=== PATIENT | female | born 1940 | race Caucasian/White ===

== ENCOUNTER 2018-05-21 13:17 | Inpatient (IN) | payer OTHER ==
[2018-05-21] MEDS ORDERED: NA CHLORIDE 0.9% 500 ML ONE (13:41)
--- NOTE | 2018-05-21 14:02 | RAD REPORT ---
EXAM DESCRIPTION: CT - Head Brain Wo Cont - 05/21/2018 1:48 pm CLINICAL HISTORY: Headache, syncope COMPARISON: March 2009 TECHNIQUE: Axial 5 mm thick images of the head were obtained without IV contrast. All CT scans are performed using dose optimization technique as appropriate and may include automated exposure control or mA/KV adjustment according to patient size. FINDINGS: No intracranial hemorrhage, mass, edema or shift of mid-line structures. No acute infarcti on changes seen. No significant atrophy or chronic ischemic change. Intracranial findings are not sub stantially different from far remote 2008 study. Ventricles are normal. Mastoid air cells and visualized portions of the paranasal sinuses are clear. No acute bony findings. IMPRESSION: Negative non-contrast CT head examination for acute findings. No significant change fro 2008.
--- NOTE | 2018-05-21 14:15 | RAD REPORT ---
EXAM DESCRIPTION: RAD - Chest Single View - 05/21/2018 1:45 pm CLINICAL HISTORY: Cough, fever, chills COMPARISON: April 2013 TECHNIQUE: AP portable chest image was obtained 1332 hours . FINDINGS: Lungs are clear. Heart and vasculature are normal. No measurable pleural effusion and no p neumothorax. No acute bony abnormality seen. No acute aortic findings suspected. IMPRESSION: No acute cardiopulmonary process. No significant interval change.
[2018-05-21 14:33] LABS: Absolute Lymphocytes (CBC) 0.9 K/uL (0.7-4.9); Absolute Neutrophil 12.9 K/uL (1.8-8.0); Basophils % 0.3 % (0-1.3); Eosinophils % 0.1 % (0-4.4); Hematocrit 41.9 % (36.0-45.0); Lymphocytes % 5.7 % (15.3-44.8); MCH 28.5 pg (27.0-35.0); MCV 85.9 fL (80-100); RBC Red Blood Cell Count 4.88 M/uL (3.86-4.86)
[2018-05-21 14:44] LABS: ALT/SGPT 18 U/L (12-78); AST/SGOT 16 U/L (15-37); Albumin 3.4 g/dL (3.4-5.0); Alkaline Phosphatase 106 U/L (45-117); BUN Blood Urea Nitrogen 13 mg/dL (7-18); Bicarbonate 22 mmol/L (21-32); Bilirubin Direct 0.1 mg/dL (0-0.2); Bilirubin Total 0.6 mg/dL (0.2-1.0); Glucose Level 158 mg/dL (74-106); Lipase 118 U/L (73-393); Potassium 3.8 mmol/L (3.5-5.1); Sodium Level 139 mmol/L (136-145); Troponin (Emerg Dept Use Only) < 0.02 ng/mL (0.0-0.045)
[2018-05-21] MEDS ORDERED: CEFTRIAXONE/SWI 1gm 1 GM/10 ML SYR ONE (16:32)
[2018-05-21 16:34] LABS: Urine Blood 1+ (NEG); Urine Glucose NEGATIVE (NEG); Urine Protein 1+ (NEG); Urine Specific Gravity 1.015 (1.005-1.030)
[2018-05-21 16:42] LABS: Urine Bacteria >50 /HPF (<20); Urine Culture Reflex Order REFLEXED; Urine RBC NONE SEEN /HPF (NONE SEEN)
--- NOTE | 2018-05-21 16:49 | EDPHYS ---
Physician Documentation [facility] Name: Connie Buckley Age: 77 yrs Sex: Female : 1940 Arrival Date: 05/21/2018 Time: 13:22 Bed 5 Private MD: ED Physician Chidi Hoffmann HPI: 05/21 13:23 This 77 yrs old Female presents to ER via Unassigned with complaints of rn weakness, chills. 13:23 REports woke up today with generalized weakness, fatigue, chills, unable to get out of rn bed, called 911 because couldn't get to vehicle. Reports heaviness to upper abdomen, but no dark stool, no chest pain, no vomiting/diarrhea. . Onset: The symptoms/episode began/occurred today. Severity of symptoms: At their worst the symptoms were moderate in the emergency department the symptoms have improved. The patient has not experienced similar symptoms in the past. The patient has not recently seen a physician. Historical: - Allergies: 13:27 amlodipine besylate; jl7 13:27 Clonidine; jl7 13:27 Codeine; jl7 13:27 doxazosin; jl7 13:27 ezetimibe; jl7 13:27 Indomethacin; jl7 - Home Meds: 19:48 atorvastatin 80 mg Oral tab 1 tab once daily [Active]; Ecotrin 325 mg Oral TbEC 1 tab tl2 once daily [Active]; furosemide 20 mg Oral tab 1 tab once daily [Active]; levothyroxine 100 mcg tab 1 tab once daily [Active]; magnesium oxide 400 mg Oral tab [Active]; metoprolol tartrate 100 mg Oral tab 1 tab once daily [Active]; Nitrostat 0.3 mg SL subl as needed [Active]; Prevacid 15 mg Oral cpDR as needed [Active]; - PMHx: 13:27 Hyperlipidemia; Hypertension; Hypothyroidism; Diabetes - NIDDM; TIA; jl7 - Immunization history:: Adult Immunizations up to date. - Social history:: Smoking status: Patient/guardian denies using tobacco. - Family history:: not pertinent. - Ebola Screening: : No symptoms or risks identified at this time. - Hospitalizations: : No recent hospitalization is reported. ROS: 13:23 Constitutional: + chills Eyes: Negative for injury, pain, redness, and discharge, Neck: rn Negative for injury, pain, and swelling, Cardiovascular: Negative for chest pain, palpitations, and edema, Respiratory: Negative for shortness of breath, cough, wheezing, and pleuritic chest pain, Abdomen/GI: + nausea, neg for abd pain/diarrhea MS/Extremity: Negative for injury and deformity, Skin: Negative for injury, rash, and discoloration, Neuro: + generalized weakness and coughing Exam: 13:29 Constitutional: This is a well developed, well nourished patient who is awake, alert, rn and in no acute distress. Head/Face: Normocephalic, atraumatic. Eyes: Pupils equal round and reactive to light, extra-ocular motions intact. Lids and lashes normal. Conjunctiva and sclera are non-icteric and not injected. Cornea within normal limits. Periorbital areas with no swelling, redness, or edema. ENT: dry MM, no stridor Cardiovascular: irregular rhythm, no murmur, tachycardic Respiratory: equal and regular bilateral breath sounds Abdomen/GI: soft, non-tender Skin: Warm, dry, no evidence of cellulitis. MS/ Extremity: Pulses equal, no cyanosis. Neurovascular intact. Full, normal range of motion. Equal circumference. Neuro: Awake and alert, GCS 15, oriented to person, place, time, and situation. Cranial nerves II-XII grossly intact. Motor strength 5/5 in all extremities. Sensory grossly intact. Vital Signs: 13:27 BP 168 / 63; Pulse 89; Resp 16; Temp 99.5; Pulse Ox 93% ; jl7 15:56 Pulse 75; Resp 17 S; Pulse Ox 98% on R/A; sg 15:59 BP 143 / 71; sg 18:58 Pulse 76 MON; Resp 16; Temp 98.1(O); Pulse Ox 100% ; sg 19:40 BP 151 / 92; Pulse 67; Resp 18; Pulse Ox 99% on R/A; tl2 MDM: 13:22 Patient medically screened. rn 16:47 Differential Diagnosis weakness, UTI, dehydration. Data reviewed: vital signs, nurses rn notes, lab test result(s), radiologic studies, plain films, and as a result, I will admit patient. Counseling: I had a detailed discussion with the patient and/or guardian regarding: the historical points, exam findings, and any diagnostic results supporting the discharge/admit diagnosis, lab results, radiology results, the need for further work-up and treatment in the hospital. Response to treatment: the patient's symptoms have mildly improved after treatment, and as a result, I will admit patient. Admission orders: after a detailed discussion of the patient's condition and case, the admit orders are written by me. 05/21 13:28 Order name: Basic Metabolic Panel; Complete Time: 15:51 rn 05/21 13:28 Order name: CBC with Diff 05/21 13:28 Order name: Hepatic Function; Complete Time: 15:51 rn 05/21 13:28 Order name: Lipase; Complete Time: 15:51 05/21 13:28 Order name: Troponin (emerg Dept Use Only); Complete Time: 15:51 05/21 13:28 Order name: Flu; Complete Time: 15:51 05/21 13:28 Order name: Strep; Complete Time: 15:51 05/21 13:28 Order name: Blood Culture Adult (2) 05/21 13:28 Order name: Procalcitonin; Complete Time: 15:51 05/21 14:47 Order name: CBC Smear Scan [facility] 05/21 14:51 Order name: Throat Culture [facility] 05/21 16:18 Order name: Urine Dipstick--Ancillary (enter results) 05/21 16:18 Order name: Urine Culture 05/21 16:18 Order name: Urine Microscopic Only 05/21 13:28 Order name: CT Head Brain wo Cont; Complete Time: 14:18 05/21 13:28 Order name: EKG; Complete Time: 13:29 05/21 13:28 Order name: Cardiac monitoring; Complete Time: 13:29 05/21 13:28 Order name: EKG - Nurse/Tech; Complete Time: 13:28 05/21 13:28 Order name: IV Saline Lock; Complete Time: 13:30 rn 05/21 13:28 Order name: Labs collected and sent; Complete Time: 13:30 05/21 13:28 Order name: NPO; Complete Time: 13:29 rn 05/21 13:28 Order name: O2 Per Protocol; Complete Time: 13:29 rn 05/21 13:28 Order name: O2 Sat Monitoring; Complete Time: 13:30 rn 05/21 13:28 Order name: Urine Dipstick-Ancillary (obtain specimen); Complete Time: 16:39 rn 05/21 13:28 Order name: XRAY Chest (1 view); Complete Time: 14:18 rn 05/21 16:18 Order name: Urine Dipstick-Ancillary EDMS Administered Medications: 13:50 Drug: NS 0.9% 500 ml Route: IV; Rate: bolus; Site: right forearm; sg 20:05 Follow up: IV Status: Completed infusion tl2 16:38 Drug: Rocephin 1 grams Route: IV; Rate: bolus; Site: right forearm; sg 20:04 Follow up: IV Status: Completed infusion tl2 16:39 Not Given (Physician Discretion): Rocephin - (cefTRIAXone) 1 grams IVPB once over 30 sg mins; (mix in 50 mL NS) 18:34 Drug: Zofran 4 mg Route: IVP; Site: right forearm; sg 20:04 Follow up: Response: No adverse reaction; Nausea is decreased tl2 Disposition: 05/21/18 16:48 Hospitalization ordered by Kellie Arteaga for Inpatient Admission. Preliminary diagnosis are Weakness, Urinary tract infection, site not specified. - Bed requested for Telemetry/MedSurg (Inpatient). - Status is Inpatient Admission. tl2 - Condition is Stable. - Problem is new. - Symptoms have improved. UTI on Admission? Yes Signatures: Dispatcher [employer] EDMS Venkat Martinez RN RN sg Rosanne Fields ms, Roman, MD MD rn Knox, Taylor RN RN tl2 Aster Freeman RN RN jl7 Corrections: (The following items were deleted from the chart) 18:40 16:48 Hospitalization Ordered by A Chandler BARRAZA for Inpatient Admission. Preliminary ms diagnosis is Weakness; Urinary tract infection, site not specified. Bed requested for Telemetry/MedSurg (Inpatient). Status is Inpatient Admission. Condition is Stable. Problem is new. Symptoms have improved. UTI on Admission? Yes. rn 20:05 18:40 05/21/2018 16:48 Hospitalization Ordered by Kellie Arteaga MD for Inpatient Admission. tl2 Preliminary diagnosis is Weakness; Urinary tract infection, site not specified. Bed requested for Telemetry/MedSurg (Inpatient). Status is Inpatient Admission. Condition is Stable. Problem is new. Symptoms have improved. UTI on Admission? Yes. ms
--- NOTE | 2018-05-21 16:49 | ER ---
Nurse's Notes [facility] Name: Connie Buckley Age: 77 yrs Sex: Female : 1940 Arrival Date: 05/21/2018 Time: 13:22 Bed 5 Private MD: Diagnosis: Weakness;Urinary tract infection, site not specified Presentation: 05/21 13:24 Presenting complaint: EMS states: C/O general weakness, chills and had some chest jl7 discomfort on the way over. Transition of care: patient was not received from another setting of care. Onset of symptoms was May 21, 2018. Risk Assessment: Do you want to hurt yourself or someone else? Patient reports no desire to harm self or others. Care prior to arrival: Medication(s) given: ASA, 81 mg, x 4. 13:24 Method Of Arrival: EMS: [facility] jl7 13:24 Acuity: MARC 3 jl7 19:45 Initial Sepsis Screen: Does the patient meet any 2 criteria? No. Patient's initial tl2 sepsis screen is negative. Does the patient have a suspected source of infection? No. Patient's initial sepsis screen is negative. Historical: - Allergies: 13:27 amlodipine besylate; jl7 13:27 Clonidine; jl7 13:27 Codeine; jl7 13:27 doxazosin; jl7 13:27 ezetimibe; jl7 13:27 Indomethacin; jl7 - Home Meds: 19:48 atorvastatin 80 mg Oral tab 1 tab once daily [Active]; Ecotrin 325 mg Oral TbEC 1 tab tl2 once daily [Active]; furosemide 20 mg Oral tab 1 tab once daily [Active]; levothyroxine 100 mcg tab 1 tab once daily [Active]; magnesium oxide 400 mg Oral tab [Active]; metoprolol tartrate 100 mg Oral tab 1 tab once daily [Active]; Nitrostat 0.3 mg SL subl as needed [Active]; Prevacid 15 mg Oral cpDR as needed [Active]; - PMHx: 13:27 Hyperlipidemia; Hypertension; Hypothyroidism; Diabetes - NIDDM; TIA; jl7 - Immunization history:: Adult Immunizations up to date. - Social history:: Smoking status: Patient/guardian denies using tobacco. - Family history:: not pertinent. - Ebola Screening: : No symptoms or risks identified at this time. - Hospitalizations: : No recent hospitalization is reported. Screenin:50 Abuse screen: Denies threats or abuse. Denies injuries from another. Nutritional sg screening: No deficits noted. Tuberculosis screening: No symptoms or risk factors identified. Never had TB. Fall Risk None identified. Assessment: 13:50 General: Appears in no apparent distress. uncomfortable, well groomed, well developed, sg well nourished, Behavior is calm, cooperative, appropriate for age. Pain: Denies pain. Neuro: Reports general weakness. Cardiovascular: Patient's skin is warm and dry. Pulses are palpable in right radial artery and left radial artery. Respiratory: Airway is patent Respiratory effort is even, unlabored, Respiratory pattern is regular, symmetrical. GI: Abdomen is round non-distended, Bowel sounds present X 4 quads. : No signs and/or symptoms were reported regarding the genitourinary system. EENT: No signs and/or symptoms were reported regarding the EENT system. Derm: Skin is pink, warm \T\ dry. Musculoskeletal: No signs and/or symptoms reported regarding the musculoskeletal system. 14:30 Reassessment: Patient appears in no apparent distress at this time. Patient and/or sg family updated on plan of care and expected duration. Pain level reassessed. Patient is alert, oriented x 3, equal unlabored respirations, skin warm/dry/pink. Vital Signs: 13:27 BP 168 / 63; Pulse 89; Resp 16; Temp 99.5; Pulse Ox 93% ; jl7 15:56 Pulse 75; Resp 17 S; Pulse Ox 98% on R/A; sg 15:59 BP 143 / 71; sg 18:58 Pulse 76 MON; Resp 16; Temp 98.1(O); Pulse Ox 100% ; sg 19:40 BP 151 / 92; Pulse 67; Resp 18; Pulse Ox 99% on R/A; tl2 ED Course: 13:22 Patient arrived in ED. rn 13:22 Chidi Hoffmann MD is Attending Physician. rn 13:25 Triage completed. jl7 13:26 Venkat Martinez, SUMAN is Primary Nurse. sg 13:27 Arm band placed on right wrist. Patient placed in an exam room, on a stretcher, on jl7 lead refinery supervisor, on pulse oximetry. 13:41 EKG done, by radio frequency technician. reviewed by Chidi Hoffmann MD. vh 13:44 XRAY Chest (1 view) In Process Unspecified. EDMS 13:48 CT Head Brain wo Cont In Process Unspecified. EDMS 14:00 Patient has correct armband on for positive identification. Bed in low position. Call sg light in reach. Side rails up X2. technology intern on. Pulse ox on. NIBP on. Warm blanket given. Head of bed elevated. 14:00 Initial lab(s) drawn, by me, sent to lab. Flu and/or RSV swab sent to lab. Strep swab sg sent to lab. Inserted saline lock: 20 gauge in right forearm, using aseptic technique. Blood collected. 14:00 Throat Culture Sent. sg 14:40 First set of blood cultures drawn by me. sg 16:48 Kellie Arteaga MD is Hospitalizing Provider. rn 20:03 No provider procedures requiring assistance completed. Patient admitted, IV remains in tl2 place. Administered Medications: 13:50 Drug: NS 0.9% 500 ml Route: IV; Rate: bolus; Site: right forearm; sg 20:05 Follow up: IV Status: Completed infusion tl2 16:38 Drug: Rocephin 1 grams Route: IV; Rate: bolus; Site: right forearm; sg 20:04 Follow up: IV Status: Completed infusion tl2 16:39 Not Given (Physician Discretion): Rocephin - (cefTRIAXone) 1 grams IVPB once over 30 sg mins; (mix in 50 mL NS) 18:34 Drug: Zofran 4 mg Route: IVP; Site: right forearm; sg 20:04 Follow up: Response: No adverse reaction; Nausea is decreased tl2 Outcome: 16:48 Decision to Hospitalize by Provider. rn 20:03 Admitted to Tele accompanied by tech, family with patient, via wheelchair, room 412, tl2 with chart, Report called to SUMAN James 20:04 Condition: stable tl2 20:04 Discharge instructions given to patient, family, Instructed on the need for admit. 20:05 Patient left the ED. tl2 Signatures: Dispatcher [employer] EDVenkat Feng, RN Chidi Gamboa MD MD rn Harrell, Venessa Naty Perry RN RN tl2 Aster Freeman RN RN jl7 Corrections: (The following items were deleted from the chart) 15:59 15:58 Throat Culture drawn and sent. sg sg
[2018-05-21 18:04] LABS: Blood Morphology Comment NOT SEEN (NOT SEEN); Platelet Estimate ADEQ; Urine White Blood Cell Casts OK
[2018-05-21] MEDS ORDERED: ONDANSETRON 4 MG/2 ML VIAL ONE (18:35)
[2018-05-21] MEDS ORDERED: ONDANSETRON 4 MG/2 ML VIAL IV PRN (20:33)
[2018-05-21] MEDS ORDERED: ACETAMINOPHEN 500 MG TAB PO PRN (20:33)
[2018-05-21] MEDS ORDERED: METOPROLOL TAR 50 MG TAB PO ONE (21:14)
[2018-05-21] MEDS ORDERED: ENOXAPARIN 40 MG/0.4 ML SQ ONE (21:15)
--- NOTE | 2018-05-21 22:08 | EKG ---
Test Date: 2018-05-21 Test Time: 13:25:57 Firewall Administrator: VH/D MEASUREMENT RESULTS: Intervals: Rate: 101 WI: QRSD: 80 QT: 376 QTc: 487 [place]: P: WI: QRS: -15 T: 109 INTERPRETIVE STATEMENTS: Sinus rhythm with frequent premature atrial complexes Nonspecific ST and T wave abnormality Abnormal ECG Compared to ECG 06/28/2016 11:14:09 ST (T wave) deviation now present Electronically Signed On 05-21-18 22:08:04 CDT by Mikel Morgan
[2018-05-21 23:18] VITALS: BMI 31.4
[2018-05-21] MEDS: NA CHLORIDE 0.9% 1,000 ML IV SCH (23:22)
--- NOTE | 2018-05-22 04:11 | HP ---
Date of Admission: 05/21/2018 Chief Complaint: Fever, chills, weakness, and confusion. History Of Present Illness: A 77-year-old female patient who was in her normal usual state of health until all of a sudden this morning, she had really bad episode of fever and chills, and the patient says that her episode of chills lasted for almost 45 minutes or so. She was not able to get up becau se she felt extremely weak, and her was not able to help her to get up to come to emergency r oom. So, ambulance was called. The patient says she was also low bit confused. She had some pain i n her bladder area, she said, and little bit burning sensation on urination early this morning. Erick es any blood in urine. She had little nausea, but no vomiting. No shortness of breath. No diarrhea . After she came in to emergency room, she was evaluated and diagnosed as having urinary tract infec tion with possibility of sepsis; and after she was treated in the emergency room, I was contacted, re questing admission to the hospital. I saw her in the emergency room. She was lying in bed. When I saw her, she was complaining of having some chills. Review of Systems: Constitutional: As mentioned above. Genitourinary: As mentioned above. STUDY DIRECTOR: As mentioned above. All other systems reviewed and negative. Medications: Aspirin 81 mg p.o. daily, furosemide 20 mg p.o. daily as needed for leg swelling, hydra lazine 10 mg 2 times a day, isosorbide mononitrate 30 mg 1 tablet p.o. daily, levothyroxine 88 mcg p. o. daily, magnesium oxide 400 mg p.o. daily, metoprolol tartrate 100 mg to take half a tablet p.o. 2 times a day, Nitrostat p.r.n., omeprazole 40 mg p.o. daily, and rosuvastatin 10 mg p.o. daily. Past Medical History: Significant for; 1.Gastroesophageal reflux disease. 2.Hypothyroidism. 3.Type 2 diabetes mellitus. 4.Hyperlipidemia. 5.Hypertension. 6.Coronary artery disease. 7.Hypomagnesemia. 8.Melanoma. 9.Lichen planus. 10.Gout. 11.History of pyelonephritis leading to acute renal failure in 2011, treated with medical management . 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 In the past, she also had laminectomy and hysterectomy. Allergies: THE PATIENT HAD SIDE EFFECT WITH AMLODIPINE CAUSING LEG SWELLING; CLONIDINE CAUSING CHEST TIGHTNESS, FATIGUE, AND NAUSEA; CODEINE CAUSING ITCHING; DOXAZOSIN CAUSING NAUSEA, ZETIA CAUSING SHANNON K PAIN, AND INDOMETHACIN CAUSING SHORTNESS OF BREATH. Family History: Significant for coronary artery disease and stroke. Social History: Negative for smoking or alcohol use. Physical Examination: Vital Signs: Blood pressure when she first came in to emergency room was 168/63, pulse 89, respirato ry rate 16, temperature 99.5, and pulse ox 93%. General: The patient is lying in bed, not in distress, appears normal, not in any respiratory distre ss. Awake, alert, oriented x3 and was having chills when I saw her today. HEENT: Head atraumatic, normocephalic. Conjunctivae nonerythematous. Sclerae white. Mouth, no thr ush or edema noted. Ears/Nose, no mass, lesion, discharge noted. Neck: Supple. No JVD, lymph nodes, bruit, thyromegaly noted. Lungs: Bilateral good equal air entry. Clear to auscultation. No rhonchi. No rales. Heart: Normal heart sounds, no murmur or gallop. Abdomen: Soft, bowel sounds normal. No guarding, rigidity, tenderness, mass, hepatosplenomegaly, dis tention, or bruit noted. Extremities: No leg edema. No calf tenderness. Skin: No rash, ulcer, cellulitis. Lymphatics: No lymph node enlargement in neck, supraclavicular, infraclavicular region. Neuro: No focal neurological deficit. Chest: Unremarkable. External Genitalia: Deferred. Rectal: Deferred. Laboratory Data: CAT scan of the head was negative for any acute intracranial changes. Chest x-ray; no acute intrathoracic changes. White count 14.8, hemoglobin 13.9, and platelets 255. Sodium 139, potassium 3.8, chloride 106, bicarb 22, BUN 13, creatinine 1.30, and glucose 158. Liver function jolynn ts unremarkable. Troponin less than 0.02. Procalcitonin 0.52. Lipase 118. Urinalysis; 3+ leukocyt e esterase, wbc's too numerous to count, and bacteria more than 50. Impression: 1.Urinary tract infection. 2.Rule out sepsis. 3.Coronary artery disease. 4.Hypertension. 5.Mixed hyperlipidemia. 6.Type 2 diabetes mellitus. 7.Hypomagnesemia. 8.Hypothyroidism. 9.Gastroesophageal reflux disease. Plan: Admit the patient to hospital for further evaluation and management of this problem. The kyleigh ent is appropriate for inpatient and is expected to spend 2 midnights in hospital. We will go ahead and give her IV fluid and IV antibiotics per order; follow up on culture results; and depending on th e culture results, we will decide about culture-specific antibiotics. Meanwhile, empiric antibiotics will be continued. DVT prophylaxis will be provided per order. Home medications will be continued per order. We will go ahead and consult Physical Therapy to help ambulate the patient. Monitor the patient's electrolytes and renal function. We will get an ultrasound done of her bladder and kidney. Details and plan of treatment were discussed with the patient. I will see her tomorrow morning for followup. RASHMI/TRISTA Voice ID: [id number]
[2018-05-22] MEDS ORDERED: CEFTRIAXONE 1 GM/NS 50 ML 1 GM/50 ML BAG IV SCH (06:00)
[2018-05-22 06:23] LABS: Potassium 3.6 mmol/L (3.5-5.1)
[2018-05-22 06:30] LABS: Absolute Lymphocytes (CBC) 1.8 K/uL (0.7-4.9); Basophils % 0.3 % (0-1.3); Eosinophils % 0.3 % (0-4.4); Hematocrit 36.3 % (36.0-45.0); Lymphocytes % 15.2 % (15.3-44.8); MCH 28.9 pg (27.0-35.0); MCV 86.1 fL (80-100); Monocytes % 8.5 % (3.3-12.3); RBC Red Blood Cell Count 4.22 M/uL (3.86-4.86)
[2018-05-22] MEDS ORDERED: CEFTRIAXONE/SWI 1gm 1 GM/10 ML SYR ONE (06:37)
[2018-05-22] MEDS: NA CHLORIDE 0.9% 1,000 ML IV SCH ×2 (06:38→16:59)
[2018-05-22] MEDS ORDERED: CEFTRIAXONE/SWI 1gm 1 GM/10 ML SYR IV SCH (09:00)
[2018-05-22] MEDS: METOPROLOL TAR 50 MG TAB PO SCH ×2 (09:57→20:21)
[2018-05-22] MEDS: ASPIRIN EC 81 MG TAB PO SCH (09:57)
--- NOTE | 2018-05-22 10:07 | RAD REPORT ---
EXAM DESCRIPTION: US - Renal Ultrasound-Complete - 05/22/2018 9:51 am CLINICAL HISTORY: Urinary tract infection COMPARISON: 2016 cat scan FINDINGS: The right kidney measures 9 cm with a normal echotexture. The left kidney measures 10 cm with a normal echotexture. A 2.7 centimeters cyst is seen. 1.[address] hypoechoic mass is seen Hydronephrosis is not seen. IMPRESSION: 2.7 centimeter left renal cyst 1.2 centimeter hypoechoic mass the left kidney probably represents benign complex cyst. Follow-up ult leslee in 1 year is recommended for re-evaluation
--- NOTE | 2018-05-22 10:51 | RAD REPORT ---
EXAM DESCRIPTION: US - Urinary Bladder - 05/22/2018 9:51 am CLINICAL HISTORY: Pelvic pain, urinary tract infection COMPARISON: None. FINDINGS: Bilateral ureteral jets were identified. No obstructive process. Partially filled urinary bladder shows no wall thickening or mass. No bladder stone or other intraluminal abnormality. IMPRESSION: Negative bladder ultrasound.
--- NOTE | 2018-05-22 11:33 | PN ---
Date of Progress Note: 05/22/2018 Subjective: The patient was seen this morning for followup. She had one more episode of chills afte r I saw her in the emergency room as she reported, but then this morning she is feeling better. She still has some pain in the bladder area, but otherwise denies any other complaints this morning. Objective: Vital signs: Reviewed. HEENT: Examination unremarkable. Lungs: Clear to auscultation. Heart: Sounds normal. Abdomen: Soft. Bowel sounds normal. No guarding, rigidity, tenderness, or distention. Extremities: No leg edema. Laboratory Data: White count 11.9, hemoglobin 12.2, platelets 211. Sodium 141, potassium 3.6, chlor maribel 109, bicarb 24, BUN 11, creatinine 1.1, glucose 115. Blood culture and urine culture pending. Impression: 1.Urinary tract infection. 2.Rule out sepsis. 3.Coronary artery disease. 4.Hypertension. 5.Mixed hyperlipidemia. 6.Hypothyroidism. 7.Type 2 diabetes mellitus. Plan: We will go ahead and continue current medications. Continue IV fluid. We will get a bladder and renal ultrasound this morning and we will continue current antibiotics. Home medications will be continued. Ambulation was encouraged. Continue DVT prophylaxis per order. I will see her tomorrow for followup. RASHMI/MODL Voice ID: [id number] Report ID: [id number]
[2018-05-22] MEDS: ENOXAPARIN 40 MG/0.4 ML SQ SCH (16:58)
[2018-05-22] MEDS: ROSUVASTATIN 10 MG TAB PO SCH (20:10)
[2018-05-22] MEDS: CEFTRIAXONE/SWI 1gm 1 GM/10 ML SYR IV SCH (20:11)
[2018-05-23] MEDS: NA CHLORIDE 0.9% 1,000 ML IV SCH ×3 (05:53→22:33)
[2018-05-23] MEDS: LEVOTHYROXINE SOD 0.088 MG TAB PO SCH (05:53)
[2018-05-23] MEDS ORDERED: ROSUVASTATIN CALCIUM 10 MG PO SCH (09:00)
[2018-05-23] MEDS: CEFTRIAXONE/SWI 1gm 1 GM/10 ML SYR IV SCH (09:00)
[2018-05-23] MEDS ORDERED: HOME MED 1 EA UNK (Omeprazole [Prilosec] 40 MG) PO SCH (09:00)
[2018-05-23] MEDS ORDERED: MAGNESIUM OXIDE 400 MG PO SCH (09:00)
[2018-05-23] MEDS: METOPROLOL TAR 50 MG TAB PO SCH ×2 (09:38→20:56)
[2018-05-23] MEDS: ASPIRIN EC 81 MG TAB PO SCH (09:38)
[2018-05-23] MEDS: PANTOPRAZOLE 40MG TABLET PO SCH (09:38)
[2018-05-23] MEDS: MAGNESIUM OXIDE 400 MG TAB PO SCH (09:38)
[2018-05-23] MEDS: ISOSORBIDE MONO SR 30 MG TAB PO SCH (09:39)
[2018-05-23] MEDS ORDERED: Meropenem 1000 MG/VIAL IV SCH (10:00)
[2018-05-23] MEDS: Meropenem 1,000 MG in NA CHLORIDE 0.9% 100 ML IV SCH ×2 (10:21→21:03)
--- NOTE | 2018-05-23 14:22 | PN ---
Date of Progress Note: 05/23/2018 Subjective: The patient was seen this morning for followup. She was lying in bed, not in any distre ss. Overall, she feels better today than yesterday. Denies any chills, fever. No abdominal pain, n ausea, vomiting. Objective: Vital signs: Reviewed. This morning, temperature 97.5, pulse 56, respiratory rate 18, b lood pressure 122/57, oxygen saturation 96%. HEENT: Unremarkable. Lungs: Clear to auscultation. Heart: Sounds normal. Abdomen: Soft. Bowel sounds normal. No guarding, rigidity, tenderness, or distention. Extremities: No leg edema. Laboratory Data: Urine culture growing E. coli and it is ESBL. Blood culture is also growing gram-n egative rods. Definite identification and sensitivity result pending. Impression: 1.Septicemia, organism gram-negative rods. 2.Urinary tract infection, organism Escherichia coli, extended-spectrum beta-lactamase. 3.Coronary artery disease. 4.Hypertension. Plan: We will go ahead and continue current medications. Continue IV fluid. Discontinue ceftriaxon e. Start the patient on meropenem. Continue current deep vein thrombosis prophylaxis, and I will se e her tomorrow for followup. Details and plan of treatment discussed with the patient, and patient is alre leonila on isolation. RASHMI/MODL Voice ID: [id number] Report ID: [id number]
[2018-05-23] MEDS: ENOXAPARIN 40 MG/0.4 ML SQ SCH (18:46)
[2018-05-23] MEDS: ROSUVASTATIN 10 MG TAB PO SCH (20:55)
[2018-05-24] MEDS: NA CHLORIDE 0.9% 1,000 ML IV SCH (02:15)
[2018-05-24] MEDS: LEVOTHYROXINE SOD 0.088 MG TAB PO SCH (06:13)
[2018-05-24 08:29] LABS: Absolute Lymphocytes (CBC) 1.6 K/uL (0.7-4.9); Absolute Monocytes 0.8 K/uL (0.1-1.3); Basophils % 0.7 % (0-1.3); Eosinophils % 2.1 % (0-4.4); Lymphocytes % 24.2 % (15.3-44.8); MCH 28.5 pg (27.0-35.0); MCV 86.8 fL (80-100); MPV 9.9 fL (7.6-11.3); Monocytes % 11.8 % (3.3-12.3); RBC Red Blood Cell Count 4.03 M/uL (3.86-4.86)
[2018-05-24 08:47] LABS: Magnesium 1.9 mg/dL (1.8-2.4); Potassium 3.6 mmol/L (3.5-5.1)
[2018-05-24] MEDS: PANTOPRAZOLE 40MG TABLET PO SCH (10:07)
[2018-05-24] MEDS: ASPIRIN EC 81 MG TAB PO SCH (10:07)
[2018-05-24] MEDS: MAGNESIUM OXIDE 400 MG TAB PO SCH (10:07)
[2018-05-24] MEDS: METOPROLOL TAR 50 MG TAB PO SCH ×2 (10:07→20:40)
[2018-05-24] MEDS: Meropenem 1,000 MG in NA CHLORIDE 0.9% 100 ML IV SCH ×2 (10:08→20:41)
[2018-05-24] MEDS: ISOSORBIDE MONO SR 30 MG TAB PO SCH (10:08)
--- NOTE | 2018-05-24 14:52 | PN ---
Date of Progress Note: 05/24/2018 Subjective: The patient was seen this morning for followup. She was sitting at bedside. Her husban d was with her. She is feeling much better today compared to last 2 to 3 days. Denies any complaint s this morning. Objective: Vital signs: Reviewed. HEENT: Unremarkable. Lungs: Clear to auscultation. Heart: Sounds normal. Abdomen: Soft bowel sounds normal. No guarding, rigidity, tenderness, or distention. Extremities: Have some trace edema of her hands and feet that she is complaining about and that was noted when I examined her. Laboratory Data: White count 6.5, hemoglobin 11.5, platelets 203, sodium 145, potassium 3.6, chlorid e 116, bicarb 22, BUN 7, creatinine 1, glucose 103, magnesium 1.9. Blood culture growing E coli and it is ESBL and urine culture also growing the same organism. Impression: 1.Sepsis, organism Escherichia coli. 2.Urinary tract infection, organism Escherichia coli. 3.Anemia, unspecified. 4.Hypertension. 5.Coronary artery disease. Plan: We will go ahead and continue current medications which is her meropenem. She is tolerating t hat very well. We will discontinue IV fluid. Blood pressure is stable. Her renal and bladder ultra sound result were discussed with her showing renal cyst and [facility]. Overall, her condition is improving. PICC line was ordered and tomorrow we will req [facility] to start helping us making arrangements for home IV antibiotics and Home Health C are services to assist the patient with these IV antibiotics. Recommendation is for patient to recei ve 2 weeks of IV antibiotics at home upon discharge. Details were discussed with her. RASHMI/MODL Voice ID: [id number] Report ID: [id number]
[2018-05-24] MEDS: ENOXAPARIN 40 MG/0.4 ML SQ SCH (16:18)
[2018-05-24] MEDS: ROSUVASTATIN 10 MG TAB PO SCH (20:40)
[2018-05-25] MEDS: LEVOTHYROXINE SOD 0.088 MG TAB PO SCH (05:15)
--- NOTE | 2018-05-25 08:06 | RAD REPORT ---
EXAM DESCRIPTION: RAD - Chest Single View - 05/25/2018 1:27 am CLINICAL HISTORY: Device placement PICC line placement COMPARISON: May 21, 2018 FINDINGS: A PICC line has been inserted with its tip in the distal superior vena cava. The lungs appear clear of acute infiltrate. The heart is normal size. IMPRESSION: PICC line with its tip in the distal superior vena cava
[2018-05-25] MEDS ORDERED: NITROGLYCERIN 0.4 MG/TAB SL PRN (08:17)
[2018-05-25] MEDS: MAGNESIUM OXIDE 400 MG TAB PO SCH (08:31)
[2018-05-25] MEDS: Meropenem 1,000 MG in NA CHLORIDE 0.9% 100 ML IV SCH ×2 (08:31→20:23)
[2018-05-25] MEDS: PANTOPRAZOLE 40MG TABLET PO SCH (08:31)
[2018-05-25] MEDS: ASPIRIN EC 81 MG TAB PO SCH (08:32)
[2018-05-25] MEDS: ISOSORBIDE MONO SR 30 MG TAB PO SCH (08:32)
[2018-05-25] MEDS: FUROSEMIDE 20 MG TABLET PO SCH (08:32)
[2018-05-25] MEDS: HYDRALAZINE HCL 25 MG TABLET PO SCH ×2 (08:40→20:23)
--- NOTE | 2018-05-25 08:48 | EKG ---
Test Date: 2018-05-25 Test Time: 09:35:27 Senior Telecommunications Consultant: MILTON MEASUREMENT RESULTS: Intervals: Rate: 81 NM: 136 QRSD: 84 QT: 388 QTc: 450 [place]: P: 26 NM: 136 QRS: 22 T: 62 INTERPRETIVE STATEMENTS: Sinus rhythm with premature supraventricular complexes Otherwise normal ECG Compared to ECG 05/21/2018 13:25:57 ST (T wave) deviation no longer present Electronically Signed On 05-25-18 08:48:27 BISQUE BRUSHER by Mikel Morgan
[2018-05-25] MEDS ORDERED: HYDRALAZINE HCL 10 MG TABLET PO SCH (09:00)
[2018-05-25 09:26] LABS: Absolute Lymphocytes (CBC) 2.1 K/uL (0.7-4.9); Absolute Monocytes 0.9 K/uL (0.1-1.3); Absolute Neutrophil 7.5 K/uL (1.8-8.0); Basophils % 0.6 % (0-1.3); Eosinophils % 0.7 % (0-4.4); Hematocrit 37.6 % (36.0-45.0); Lymphocytes % 19.5 % (15.3-44.8); MCH 28.2 pg (27.0-35.0); MCV 85.5 fL (80-100); MPV 10.1 fL (7.6-11.3); Monocytes % 8.6 % (3.3-12.3); RBC Red Blood Cell Count 4.39 M/uL (3.86-4.86)
[2018-05-25 09:51] LABS: ALT/SGPT 17 U/L (12-78); AST/SGOT 22 U/L (15-37); Alkaline Phosphatase 86 U/L (45-117); BUN Blood Urea Nitrogen 7 mg/dL (7-18); Bicarbonate 23 mmol/L (21-32); Bilirubin Total 0.3 mg/dL (0.2-1.0); CKMB Creatine Kinase MB < 1.0 ng/mL (0.3-3.6); Creatine Phosphokinase 76 U/L (26-192); Glucose Level 105 mg/dL (74-106); Magnesium 1.8 mg/dL (1.8-2.4); Potassium 3.4 mmol/L (3.5-5.1); Protein, Total 6.4 g/dL (6.4-8.2); Sodium Level 142 mmol/L (136-145); Troponin I 0.02 ng/mL (0.0-0.045)
[2018-05-25] MEDS: LOSARTAN POTASSIUM 50 MG TABLET PO SCH (10:00)
--- NOTE | 2018-05-25 13:33 | CON ---
CARDIOLOGY CONSULT Reason For Consult: Chest pain. History Of Present Illness: Mrs. Arango came to our hospital several days ago; I believe her date of admission was May 21 and this is May 25. She was found to have urinary tract sepsis, it is with E. coli with extended spectrum beta-lactam resistance. The only drug that is useful in tr eating that apparently is meropenem. She is on meropenem isolation and probably will need to go home on IV antibiotics for a month; I believe that is the plan that is being discussed with her. She has CAD. The last time we did a cardiac cath, she was found to have an ostial LAD stenosis, RCA stenosi s, and other stenoses, and Dr. Alejandro recommended bypass surgery. The patient was reluctant, so the re was an agreement to pursue medical therapy until angina got worse; since being in the hospital 4 d ays, she has reported some angina. Presently, she is not having pain. She gets pain every few month s, it is a pressure and tightness in the chest. It goes away when she uses nitroglycerin. She was n ot given nitroglycerin this time when she had it. She has underlying hypertension, coronary heart di sease. She has had 2 malignancies, a melanoma, and squamous cell carcinoma of the tongue. She has h ypothyroidism, hypertension, dyslipidemia. She reports drug intolerance to clonidine, doxazosin, gisel timibe and amlodipine and codeine. She does not use tobacco. Physical Examination: Vital Signs: 5 feet 4 inches, 183 pounds. General: Alert, oriented, pleasant, not in distress. Lungs: Clear. Heart Exam: Does not reveal any abnormalities. Extremities: 2+ edema just around the ankles. Normal distal pulses. No cyanosis or clubbing. Abdomen: Soft. Her electrocardiogram on the 21 of May of this year was sinus rhythm, frequent premature atrial complexes, otherwise normal. I do not see that an EKG has been repeated, but it should be done. Th e patient would not do well to go to her bypass surgery recommended almost 2 years ago, now with a se rious infection unless it becomes an emergency, so we will make sure we have good control of blood pr essure, similar heart rate with her aspirin, but not dual anti-platelet therapy. We can consider add ing Xarelto 2.5 b.i.d. to try and help, but adding Plavix would mean bypass surgery would have to be delayed. If we can control her angina and do a cardiac cath after the infection is cleared, a bypass surgery would be much less likely to cause serious complications or . NEENA Voice ID: [id number] Report ID: [id number]
[2018-05-25] MEDS: METOPROLOL XL 50 MG TAB PO SCH (17:35)
[2018-05-25] MEDS: ENOXAPARIN 40 MG/0.4 ML SQ SCH (17:36)
[2018-05-25] MEDS ORDERED: POTASSIUM CL SA 10 MEQ TAB PO ONE (19:58)
[2018-05-25] MEDS: ROSUVASTATIN 10 MG TAB PO SCH (20:22)
--- NOTE | 2018-05-25 21:36 | PN ---
Date of Progress Note: 05/25/2018 Subjective: The patient was seen this morning for followup. When I saw her, she was trying to walk in the room and she was unsteady on her feet, so I did assist to get back in the bed. She was compla ining of some chest pain that happened last night and this started before she had a PICC line placeme nt and describes as pain in the center of her chest, tightness type of feeling, and after a while, it went away. This morning, she did not have any chest pain. Objective: Vital Signs: Reviewed. Her temperature was 98.8, pulse 82, respiratory rate 18, blood p ressure 190/79 this morning. Oxygen saturation 94%. HEENT: Unremarkable. Lungs: Clear to auscultation. Heart: Sounds normal. Abdomen: Soft. Bowel sounds normal. No guarding, rigidity, tenderness, or distention. Extremities: No leg edema. Laboratory Data: Cardiac enzymes and EKG done today reviewed. Impression: 1.Sepsis, organism Escherichia coli, extended-spectrum beta-lactamases. 2.Urinary tract infection, organism Escherichia coli, extended-spectrum beta-lactamases. 3.Coronary artery disease. 4.Hypertension. 5.Diabetes mellitus. Plan: The patient's blood pressure is elevated. We will continue current metoprolol and we will go ahead and add losartan. In the past, the patient was given losartan, which she decided to stop takin g it on her own and we will restart it considering today's blood pressure. Cardiology consultation w as requested for her chest pain problem. We will follow up with gas attendant regarding that. We ana maría l continue current antibiotics including IV meropenem for her septicemia and Social Service to make a rrangements for 2 weeks of IV meropenem to be received upon discharge from the hospital. Possible di scharge this week depending on her clinical condition. We will decide at what point we might be able to discharge her. I will see her tomorrow for followup. RASHMI/MODL Voice ID: [id number] Report ID: [id number]
[2018-05-26] MEDS: METOPROLOL XL 50 MG TAB PO SCH ×2 (05:32→18:17)
[2018-05-26] MEDS: LEVOTHYROXINE SOD 0.088 MG TAB PO SCH (05:32)
[2018-05-26] MEDS: PANTOPRAZOLE 40MG TABLET PO SCH (08:32)
[2018-05-26] MEDS: FUROSEMIDE 20 MG TABLET PO SCH (08:33)
[2018-05-26] MEDS: MAGNESIUM OXIDE 400 MG TAB PO SCH (08:33)
[2018-05-26] MEDS: ASPIRIN EC 81 MG TAB PO SCH (08:34)
[2018-05-26] MEDS: LOSARTAN POTASSIUM 50 MG TABLET PO SCH (08:34)
[2018-05-26] MEDS: ISOSORBIDE MONO SR 30 MG TAB PO SCH (08:34)
[2018-05-26] MEDS: Meropenem 1,000 MG in NA CHLORIDE 0.9% 100 ML IV SCH ×2 (08:54→20:27)
[2018-05-26] MEDS: HYDRALAZINE HCL 25 MG TABLET PO SCH ×2 (11:47→20:26)
--- NOTE | 2018-05-26 13:58 | PN ---
Date of Progress Note: 05/26/2018 Ms. Arango is a 77 who was admitted here on 05/21/2018, has been seen by Dr. Morgan on 05/25/2018 b ecause of unstable angina. Ms. Arango is very well known to me, has had a heart catheterization 2 years ago. She was thought to be a candidate for coronary artery bypass surgery. The patient has ex pressed wishes to wait at that time. This has been 2 years right now and she has been having unstabl e angina from time to time. It seems to have worsened at this time after she had come in with a UTI that is fairly bacterial antibiotic resistant. She remains on IV antibiotics and now on isolation. Conchita. Today, she has not had any further chest pain. IV antibiotic continues. The p tejinder is for her to go home whenever it is okay with Dr. Arteaga. She is reconsidering surgery as far as her heart is concerned. We will have to do another catheterization before that happens. She had an appointment in my office in July with me and we will see how she does between now and then and cindy e a decision. Continue her present regimen otherwise. VISHNU/TRISTA Voice ID: [id number] Report ID: [id number]
[2018-05-26] MEDS: ENOXAPARIN 40 MG/0.4 ML SQ SCH (18:16)
[2018-05-26] MEDS: ROSUVASTATIN 10 MG TAB PO SCH (20:26)
[2018-05-26 23:15] VITALS: O2SAT 96
--- NOTE | 2018-05-26 23:49 | PN ---
Date of Progress Note: 05/26/2018 Subjective: The patient was seen this morning for followup. No new complaints or problems reported by patient. Lying in bed, not in distress. This morning when I saw her she was feeling much better, back to her normal self. She was happy, smiling, and feeling a lot better. Her was with he r at bedside. Objective: Vital Signs: Reviewed. HEENT: Examination unremarkable. Lungs: Clear to auscultation. Heart: Sounds normal. Abdomen: Soft. Bowel sounds normal. No guarding, rigidity, tenderness, or distention. Extremities: No leg edema. Impression: 1.Sepsis, organism Escherichia coli, extended-spectrum beta-lactamases. 2.Urinary tract infection, organism Escherichia coli, extended-spectrum beta-lactamases. 3.Coronary artery disease. 4.Hypertension. Plan: We will go ahead and continue current medications. Continue IV antibiotic. We will go ahead and have director of social services make arrangements for home IV antibiotics to be given for 3 weeks. Possible d ischarge to go home tomorrow if arrangements gets completed by Social Service. Once antibiotic thera py gets done, the patient to follow up with mine engineering superintendent for further cardiac intervention. Cardiolog y consultation is appreciated. RASHMI/MODL Voice ID: [id number] Report ID: [id number]
[2018-05-27] MEDS: METOPROLOL XL 50 MG TAB PO SCH (05:13)
[2018-05-27] MEDS: LEVOTHYROXINE SOD 0.088 MG TAB PO SCH (05:13)
[2018-05-27] MEDS: Meropenem 1,000 MG in NA CHLORIDE 0.9% 100 ML IV SCH (08:01)
[2018-05-27] MEDS: PANTOPRAZOLE 40MG TABLET PO SCH (08:02)
[2018-05-27] MEDS: MAGNESIUM OXIDE 400 MG TAB PO SCH (08:02)
[2018-05-27] MEDS: ASPIRIN EC 81 MG TAB PO SCH (08:02)
[2018-05-27] MEDS: LOSARTAN POTASSIUM 50 MG TABLET PO SCH (08:02)
[2018-05-27] MEDS: ISOSORBIDE MONO SR 30 MG TAB PO SCH (08:41)
[2018-05-27] MEDS: HYDRALAZINE HCL 25 MG TABLET PO SCH (08:41)
[2018-05-27] MEDS: FUROSEMIDE 20 MG TABLET PO SCH (08:41)
[2018-05-27 09:37] VITALS: BP 102/52; TEMP 97.6
--- NOTE | 2018-05-28 18:00 | DS ---
Date of Discharge: 05/27/2018 Hospital Course: A 77-year-old female patient admitted to the hospital with complaints of fever, chi lls, weakness and confusion. Please see dictated H and P for more information. After patient was ev aluated in the emergency room, she was admitted to the hospital with urinary tract infection with con cerns about possibility of sepsis. She was started on IV antibiotic, which was ceftriaxone. Home me dications were continued. Initially, her blood pressure was low, which later on with appropriate denise atment of infection started to come up and in fact her blood pressure went up to 170, 180 systolic ra nge. Later on, it required to add extra antihypertensive medication. Her urine culture came back po sitive for E coli and it was reported as ESBL and drug of choice for this particular infection was me ropenem, so this particular antibiotic was started and ceftriaxone was discontinued. After meropenem was started, she started to show significant improvement. Her blood culture also was positive for s jose ramon organism. The patient's renal ultrasound was done, which came back negative for any acute findin gs except it did show some renal cyst, not concerning and we will monitor on outpatient basis with a repeat ultrasound to be done in about a year or so and this finding was discussed with her as well. Her appetite slowly improved. She started to ambulate well. One day she had chest pain type of feel ing and that actually started just before PICC line placement procedure and it resolved on its own wi thout intervention. Next day Cardiology consultation was requested and Dr. Morgan saw her for consul tation and then day after Dr. Alejandro saw her also for a followup. Ethylbenzene Cracking Supervisor has recommended furt her cardiac intervention after this sepsis problem gets resolved. Her last cardiac cath was approxim ately 2 years ago. The patient may need coronary artery bypass surgery type of intervention dependin g on what ship's engineer recommends down the line on outpatient basis. Losartan 50 mg daily was starte d for her high blood pressure problem. Overall, her condition has improved. PICC line was placed. Social Service was consulted to help make arrangements for IV meropenem to be provided on outpatient basis. The patient has received about 6 days of IV antibiotics here in the hospital, out of that pro bably 2 days of ceftriaxone and 4 days of meropenem. I have requested 3 more weeks of IV meropenem t o be provided on an outpatient basis upon discharge. Social Service was able to make all the arrange ments and after arrangements completed today, the patient was discharged to go home in stable conditi on. In the past, the patient has stopped taking medication on her own without my recommendation and I did talk to her about that today and informed her that she should not do so and she agrees to take her medication as prescribed. Final Diagnoses: 1.Sepsis, organism Escherichia coli, Extended-spectrum beta-lactamases. 2.Urinary tract infection, organism Escherichia coli, Extended-spectrum beta-lactamases. 3.Coronary artery disease. 4.Hypertension. 5.Hyperlipidemia, mixed. 6.Type 2 diabetes mellitus. 7.Hypomagnesemia. 8.Hypothyroidism. 9.Gastroesophageal reflux disease. Discharge Medications And Instructions: 1.Continue prior home medications. 2.Take losartan 50 mg p.o. daily and Ranexa 500 mg twice a day, which was started by ship's engineer malik zendejas this hospitalization. 3.Follow up at my office in 2 weeks and follow up with Dr. Alejandro in 3 weeks. 4.Home health nurse to assist the patient with IV antibiotic, meropenem 1000 mg every 12 hours for 3 weeks and home health nurse to change PICC line dressing per protocol, flush PICC per protocol, sha ve PICC line after 3 weeks of IV antibiotic therapy completed and draw blood for CBC, chem-7 every th ird day while on IV antibiotic. Laboratory Data: Initial white count 14.8, hemoglobin 13.9, platelets 255. Last white count on 11/2017 was 10.7, hemoglobin 12.4, platelets 246. Initial sodium 139, potassium 3.8, chloride 106, bi carb 22, BUN 13, creatinine 1.30, glucose 158. Liver function test unremarkable. Troponin less than 0.02. Procalcitonin 0.52. Last potassium 3.4 on 05/25/2018. BUN 7, creatinine 1.20. RASHMI/MODL Voice ID: [id number] Report ID: [id number]
== END 2018-05-27 10:37 | disposition home health service (06) | DRG 872 ==
LOC: ER 13:17 → ERHOLD 17:00 → 4TH 19:42
PROVIDERS: ADMIT Internal Medicine; ATTEND Internal Medicine
PROC: 02HV33Z Insertion of Infusion Device into Superior Vena Cava, Percutaneous Approach (ICD-10-PCS; principal; 2018-05-25)
PROC: B548ZZA Ultrasonography of Superior Vena Cava, Guidance (ICD-10-PCS; 2018-05-25)
DX: A41.51 Sepsis due to Escherichia coli [E. coli] (principal); N39.0 Urinary tract infection, site not specified; I25.110 Atherosclerotic heart disease of native coronary artery with unstable angina pectoris; B96.20 Unspecified Escherichia coli [E. coli] as the cause of diseases classified elsewhere; E78.2 Mixed hyperlipidemia; E11.9 Type 2 diabetes mellitus without complications; E83.42 Hypomagnesemia; I10 Essential (primary) hypertension; E03.9 Hypothyroidism, unspecified; K21.9 Gastro-esophageal reflux disease without esophagitis; Z88.5 Allergy status to narcotic agent; Z88.8 Allergy status to other drugs, medicaments and biological substances; L43.9 Lichen planus, unspecified; M10.9 Gout, unspecified
CPT/HCPCS: 36415; 70450; 71045; 76770; 76857; 80048; 80053; 80076; 81003; 81015; 82550; 82553; 83690; 83735; 84145; 84484; 85025; 87040; 87070; 87077; 87081; 87086; 87088; 87186; 87205; 87804; 93005; 96361; 96365; 96366; 96375; 99285; J0696; J1650; J2405; J7030

== ENCOUNTER 2019-07-05 12:22 | Emergency (ER) | payer OTHER ==
[2019-07-05] MEDS ORDERED: NA CHLORIDE 0.9% 1,000 ML ONE (13:08)
--- NOTE | 2019-07-05 13:42 | RAD REPORT ---
EXAM DESCRIPTION: RAD - Chest Single View - 07/05/2019 1:37 pm CLINICAL HISTORY: CONGESTION Chest pain. COMPARISON: Chest Single View dated 05/25/2018; Chest Single View dated 05/21/2018; CHEST SINGLE VIEW dated 05/17/2013; CHEST SINGLE VIEW dated 04/19/2013 FINDINGS: Portable technique limits examination quality. The lungs are grossly clear. The heart is upper limit of normal in size. No displaced fractures. IMPRESSION: No acute intrathoracic process suspected.
[2019-07-05 13:43] LABS: Absolute Lymphocytes (CBC) 0.7 K/uL (0.7-4.9); Basophils % 0.4 % (0-1.3); Hematocrit 36.4 % (36.0-45.0); Lymphocytes % 15.3 % (15.3-44.8); MPV 8.8 fL (7.6-11.3); RBC Red Blood Cell Count 4.12 M/uL (3.86-4.86)
[2019-07-05 13:56] LABS: Albumin 2.5 g/dL (3.4-5.0); Bilirubin Direct 0.1 mg/dL (0-0.2); Bilirubin Total 0.3 mg/dL (0.2-1.0); Potassium 3.4 mmol/L (3.5-5.1); Protein, Total 6.3 g/dL (6.4-8.2)
[2019-07-05 14:33] LABS: Urine Bacteria >50 /HPF (<20); Urine Culture Reflex Order REFLEXED; Urine RBC <5 /HPF (NONE SEEN)
[2019-07-05] MEDS ORDERED: CEFTRIAXONE/SWI 1gm 1 GM/10 ML SYR ONE (14:55)
--- NOTE | 2019-07-05 15:38 | EDPHYS ---
Physician Documentation [facility] Name: Connie Buckley Age: 78 yrs Sex: Female : 1940 Arrival Date: 07/05/2019 Time: 12:25 Bed 26 Private MD: Kellie Serrano C ED Physician Lalita Knutson HPI: 07/05 15:28 This 78 yrs old Female presents to ER via Ambulatory with complaints of Fever.ma2 15:28 Onset: The symptoms/episode began/occurred gradually, 3 day(s) ago. Associated signs ma2 and symptoms: Pertinent negatives: abdominal pain, backache, chills, diarrhea, nausea, night sweats, sinus congestion. Historical: - Allergies: 12:31 amlodipine besylate; hb 12:31 Clonidine; hb 12:31 Codeine; hb 12:31 doxazosin; hb 12:31 ezetimibe; hb 12:31 Indomethacin; hb - Home Meds: 13:27 atorvastatin 80 mg Oral tab 1 tab once daily [Active]; Ecotrin 325 mg Oral TbEC 1 tab mg2 once daily [Active]; furosemide 20 mg Oral tab 1 tab once daily [Active]; levothyroxine 100 mcg tab 1 tab once daily [Active]; magnesium oxide 400 mg Oral tab [Active]; metoprolol tartrate 100 mg Oral tab 1 tab once daily [Active]; Nitrostat 0.3 mg SL subl as needed [Active]; Prevacid 15 mg Oral cpDR as needed [Active]; - PMHx: 12:31 Diabetes - NIDDM; Hypothyroidism; Hypertension; Hyperlipidemia; TIA; hb - Immunization history:: Adult Immunizations up to date. - Social history:: Smoking status: Patient/guardian denies using tobacco. - Ebola Screening: : No symptoms or risks identified at this time. ROS: 15:35 Constitutional: Negative for fever, chills, and weight loss. ma2 15:35 All other systems are negative. Exam: 15:35 Constitutional: This is a well developed, well nourished patient who is awake, alert, ma2 and in no acute distress. Eyes: Pupils equal round and reactive to light, extra-ocular motions intact. Lids and lashes normal. Conjunctiva and sclera are non-icteric and not injected. Cornea within normal limits. Periorbital areas with no swelling, redness, or edema. ENT: Nares patent. No nasal discharge, no septal abnormalities noted. Tympanic membranes are normal and external auditory canals are clear. Oropharynx with no redness, swelling, or masses, exudates, or evidence of obstruction, uvula midline. Mucous membranes moist. Neck: Trachea midline, no thyromegaly or masses palpated, and no cervical lymphadenopathy. Supple, full range of motion without nuchal rigidity, or vertebral point tenderness. No Meningismus. Chest/axilla: Normal chest wall appearance and motion. Nontender with no deformity. No lesions are appreciated. Cardiovascular: Regular rate and rhythm with a normal S1 and S2. No gallops, murmurs, or rubs. Normal PMI, no JVD. No pulse deficits. Respiratory: Lungs have equal breath sounds bilaterally, clear to auscultation and percussion. No rales, rhonchi or wheezes noted. No increased work of breathing, no retractions or nasal flaring. Abdomen/GI: Soft, non-tender, with normal bowel sounds. No distension or tympany. No guarding or rebound. No evidence of tenderness throughout. Back: No spinal tenderness. No costovertebral tenderness. Full range of motion. MS/ Extremity: Pulses equal, no cyanosis. Neurovascular intact. Full, normal range of motion. Neuro: Awake and alert, GCS 15, oriented to person, place, time, and situation. Cranial nerves II-XII grossly intact. Motor strength 5/5 in all extremities. Sensory grossly intact. Cerebellar exam normal. Normal gait. Vital Signs: 12:30 BP 139 / 81; Pulse 106; Resp 20; Temp 98.2; Pulse Ox 96% on R/A; Weight 64.86 kg; hb Height 5 ft. 4 in. (162.56 cm); Pain 0/10; 12:50 BP 132 / 90; Pulse 98; Resp 18; Temp 97.7(O); Pulse Ox 95% on R/A; mg2 13:24 BP 125 / 83; Pulse 87; Resp 18; Pulse Ox 95% on R/A; mg2 14:20 Pulse 72; Resp 18; Temp 98; Pulse Ox 98% on R/A; mg2 16:00 BP 122 / 78; Pulse 80; Resp 18; Temp 98.1; Pulse Ox 98% on R/A; mg2 12:30 Body Mass Index 24.55 (64.86 kg, 162.56 cm) hb MDM: 12:37 Patient medically screened. [facility] 15:35 Differential diagnosis: URI, bronchitis, pneumonia UTI. Data reviewed: vital signs, [facility] nurses notes. Counseling: I had a detailed discussion with the patient and/or guardian regarding: the historical points, exam findings, and any diagnostic results supporting the discharge/admit diagnosis, the presence of at least one elevated blood pressure reading (>120/80) during this emergency department visit, the need for outpatient follow up. Response to treatment: the patient's symptoms have markedly improved after treatment. ED course: discussed with dr. serrano, he recommends outpatient management for uti. 07/05 12:56 Order name: Basic Metabolic Panel [facility] 07/05 12:56 Order name: Blood Culture Adult (2) [facility] 07/05 12:56 Order name: CBC with Diff [facility] 07/05 12:56 Order name: Lactate [facility] 07/05 12:56 Order name: LFT's [facility] 07/05 12:56 Order name: Procalcitonin [facility] 07/05 12:56 Order name: Urine Microscopic Only [facility] 07/05 13:48 Order name: CBC with Automated Diff; Complete Time: 14:08 EDMS 07/05 13:56 Order name: Basic Metabolic Panel; Complete Time: 14:08 EDMS 07/05 13:56 Order name: Liver (Hepatic) Function; Complete Time: 14:08 EDMS 07/05 13:58 Order name: Lactate; Complete Time: 14:08 EDMS 07/05 14:18 Order name: Urine Dipstick--Ancillary (enter results) 07/05 14:29 Order name: Procalcitonin; Complete Time: 14:31 EDMS 07/05 14:35 Order name: Urine Microscopic Only; Complete Time: 15:24 EDMS 07/05 12:56 Order name: Chest Single View XRAY [facility] 07/05 12:56 Order name: Cardiac monitoring; Complete Time: 13:10 [facility] 07/05 12:56 Order name: IV Saline Lock - Large Bore; Complete Time: 13:10 [facility] 07/05 12:56 Order name: Labs collected and sent; Complete Time: 13:10 [facility] 07/05 12:56 Order name: Urine Dipstick-Ancillary (obtain specimen); Complete Time: 14:21 ma2 07/05 13:44 Order name: RAD; Complete Time: 14:08 EDMS Administered Medications: 13:23 Drug: NS 0.9% 1000 ml Route: IV; Rate: 1 bolus; Site: right antecubital; mg2 14:58 Drug: Rocephin 1 grams Route: IV; Rate: calculated rate; Site: right antecubital; mg2 15:59 Follow up: Response: No adverse reaction; IV Status: Completed infusion; IV Intake: mg2 1000ml Disposition: 07/05/19 15:37 Discharged to Home. Impression: Cystitis, unspecified without hematuria. - Condition is Stable. - Discharge Instructions: Urinary Tract Infection, Adult. - Prescriptions for Cipro 500 mg Oral Tablet - take 1 tablet by ORAL route every 12 hours for 7 days; 14 tablet. - Medication Reconciliation Form, Thank You Letter, Antibiotic Education, Prescription Opioid Use form. - Follow up: Kellie Serrano MD; When: Tomorrow; Reason: Continuance of care. Signatures: Dispatcher [employer] EDWI Mercedes Rocha RN RN Lalita Knutson MD MD ma2 Isai Coon RN RN mg2 Corrections: (The following items were deleted from the chart) 16:02 15:37 07/05/2019 15:37 Discharged to Home. Impression: Cystitis, unspecified without mg2 hematuria. Condition is Stable. Forms are Medication Reconciliation Form, Thank You Letter, Antibiotic Education, Prescription Opioid Use. Follow up: Kellie Serrano; When: Tomorrow; Reason: Continuance of care. ma2
--- NOTE | 2019-07-05 15:38 | ER ---
Nurse's Notes [facility] Name: Connie Buckley Age: 78 yrs Sex: Female : 1940 Arrival Date: 07/05/2019 Time: 12:25 Bed 26 Private MD: Kellie Arteaga C Diagnosis: Cystitis, unspecified without hematuria Presentation: 07/05 12:29 Presenting complaint: Intermittent fever and headache x 6 days. TMAX 104. Transition of hb care: patient was not received from another setting of care. Onset of symptoms was June 30, 2019. Risk Assessment: Do you want to hurt yourself or someone else?. Care prior to arrival: None. 12:29 Method Of Arrival: Ambulatory hb 12:29 Acuity: MARC 3 hb 13:25 Initial Sepsis Screen: Does the patient meet any 2 criteria? No. Patient's initial mg2 sepsis screen is negative. Does the patient have a suspected source of infection? No. Patient's initial sepsis screen is negative. Historical: - Allergies: 12:31 amlodipine besylate; hb 12:31 Clonidine; hb 12:31 Codeine; hb 12:31 doxazosin; hb 12:31 ezetimibe; hb 12:31 Indomethacin; hb - Home Meds: 13:27 atorvastatin 80 mg Oral tab 1 tab once daily [Active]; Ecotrin 325 mg Oral TbEC 1 tab mg2 once daily [Active]; furosemide 20 mg Oral tab 1 tab once daily [Active]; levothyroxine 100 mcg tab 1 tab once daily [Active]; magnesium oxide 400 mg Oral tab [Active]; metoprolol tartrate 100 mg Oral tab 1 tab once daily [Active]; Nitrostat 0.3 mg SL subl as needed [Active]; Prevacid 15 mg Oral cpDR as needed [Active]; - PMHx: 12:31 Diabetes - NIDDM; Hypothyroidism; Hypertension; Hyperlipidemia; TIA; hb - Immunization history:: Adult Immunizations up to date. - Social history:: Smoking status: Patient/guardian denies using tobacco. - Ebola Screening: : No symptoms or risks identified at this time. Screenin:55 Abuse screen: Denies threats or abuse. Denies injuries from another. Nutritional mg2 screening: No deficits noted. Tuberculosis screening: No symptoms or risk factors identified. Fall Risk IV access (20 points). Assessment: 12:55 General: Appears in no apparent distress. comfortable, Behavior is calm, cooperative. mg2 Pain: Denies pain. Neuro: Level of Consciousness is awake, alert, obeys commands, Oriented to person, place, time, situation. Cardiovascular: Capillary refill < 3 seconds Patient's skin is warm and dry. Respiratory: Airway is patent Respiratory effort is even, unlabored, Respiratory pattern is regular, symmetrical. GI: No signs and/or symptoms were reported involving the gastrointestinal system. : No signs and/or symptoms were reported regarding the genitourinary system. EENT: No signs and/or symptoms were reported regarding the EENT system. Derm: Skin is intact, is healthy with good turgor, Skin is pink, warm \T\ dry. normal. Musculoskeletal: Circulation, motion, and sensation intact. Capillary refill < 3 seconds. 14:21 Reassessment: Patient appears in no apparent distress at this time. Patient and/or mg2 family updated on plan of care and expected duration. Pain level reassessed. Patient is alert, oriented x 3, equal unlabored respirations, skin warm/dry/pink. Vital Signs: 12:30 BP 139 / 81; Pulse 106; Resp 20; Temp 98.2; Pulse Ox 96% on R/A; Weight 64.86 kg; hb Height 5 ft. 4 in. (162.56 cm); Pain 0/10; 12:50 BP 132 / 90; Pulse 98; Resp 18; Temp 97.7(O); Pulse Ox 95% on R/A; mg2 13:24 BP 125 / 83; Pulse 87; Resp 18; Pulse Ox 95% on R/A; mg2 14:20 Pulse 72; Resp 18; Temp 98; Pulse Ox 98% on R/A; mg2 16:00 BP 122 / 78; Pulse 80; Resp 18; Temp 98.1; Pulse Ox 98% on R/A; mg2 12:30 Body Mass Index 24.55 (64.86 kg, 162.56 cm) hb ED Course: 12:25 Patient arrived in ED. mr 12:26 Kellie Arteaga MD is Private Physician. mr 12:29 Triage completed. hb 12:30 Arm band placed on. hb 12:33 Isai Coon RN is Primary Nurse. mg2 12:37 Lalita Knutson MD is Attending Physician. ma2 12:57 Patient has correct armband on for positive identification. mg2 13:20 Inserted saline lock: 20 gauge in right antecubital area, using aseptic technique. mg2 Blood collected. by SHAR Rothman Tech. 13:24 No provider procedures requiring assistance completed. mg2 14:10 Second set of blood cultures drawn by nh. mg2 15:36 Kellie Arteaga MD is Referral Physician. ma2 16:00 IV discontinued, intact, bleeding controlled, No redness/swelling at site. Pressure mg2 dressing applied. Administered Medications: 13:23 Drug: NS 0.9% 1000 ml Route: IV; Rate: 1 bolus; Site: right antecubital; mg2 14:58 Drug: Rocephin 1 grams Route: IV; Rate: calculated rate; Site: right antecubital; mg2 15:59 Follow up: Response: No adverse reaction; IV Status: Completed infusion; IV Intake: mg2 1000ml Intake: 15:59 IV: 1000ml; Total: 1000ml. mg2 Outcome: 15:37 Discharge ordered by . ma2 16:01 Discharged to home ambulatory. mg2 16:01 Condition: stable 16:01 Discharge instructions given to patient, Instructed on discharge instructions, Demonstrated understanding of instructions, follow-up care, medications, Prescriptions given X 1. 16:02 Patient left the ED. mg2 Addendum: 07/07/2019 08:03 Addendum: Culture Results: Positive urine culture. No further action required. Bacteria h b sensitive to prescribed antibiotic. Signatures: Sheron Hinkle Heather, RN RN Lalita Knutson MD MD [facility] Isai Coon RN RN mg2
[2019-07-05 17:46] VITALS: O2SAT 98
[2019-07-05 17:48] VITALS: BP 122/78; TEMP 98.1
[2019-07-05 19:17] LABS: Urine Blood TRACE (NEG); Urine Glucose NEGATIVE (NEG); Urine Protein NEGATIVE (NEG); Urine Specific Gravity <1.005 (1.005-1.030); Urine pH 5.5 (5.0-7.0)
== END 2019-07-05 16:02 | disposition home or self-care (01) ==
LOC: ER 12:22
DX: N30.90 Cystitis, unspecified without hematuria (principal); I10 Essential (primary) hypertension; E11.9 Type 2 diabetes mellitus without complications; E03.9 Hypothyroidism, unspecified; E78.5 Hyperlipidemia, unspecified; Z88.5 Allergy status to narcotic agent; Z88.8 Allergy status to other drugs, medicaments and biological substances
CPT/HCPCS: 96365; 87040 ×2; 87088; 85025; 87086; 80048; 36415; 80076; 83605; 87077; 87186; 84145; 71045; 99284; J0696; J7030; 81003; 81015

== ENCOUNTER 2020-12-08 04:19 | Observation (INO) | payer OTHER ==
--- OUTSIDE RECORDS SUMMARY | 2020-12-08 04:23 | XMS REPORT | Continuity of Care Document ---
:1940 Author Organization [facility] t Address [address] [place] [address] [address] [place] [address] Care Team Providers Name Role Phone Lexii TOMAS Primary Care Physician Unavailable Sanchez NAVARRO Attending Clinician Bobby BARRAZA Attending Clinician Lexii Tomas MD Attending Clinician SANCHEZ Attending Clinician Unavailable Lexii TOMAS Attending Clinician Unavailable Martha WILL B Attending Clinician Nori Millna Attending Clinician Payers Payer Name Policy Type Policy Effective Date Expiration Date Sour ce Number AETNA MEDICAREAETNA [id number] 2013 MD Harleen gama MEDICARE 00:00:00 [id number] -PresentMedicare Problems Condition Condition Condition Status Onset Resolution Last Treating Co mments Source Name Details Category Date Date Treatment Clinician Date Personal Personal Disease Active history of history of 08-16 An derso irradiatio irradiatio 00:00: n n n 00 Secondary Secondary Disease Active 2018-07 and and 08-04 Anderso unspecifie unspecifie 00:00: n d d 00 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 Last seen while hospitali zed for urosepsis and 1-2 weeks after discharge . In scanned documents -C 06/2016 RCA:ok, PDA: 60%, LM ok, CFX: prox 50%, LAD prox 70%- placed on medical therapyAd en MPI 06/2015 normal myocardia l perfusion images, EF 72 %Carotid doppler 01/2017: < 20% plaque in bilat ICA, antegrade flow in bilat vertebral arteriesL ast Assessmen t & Plan: Patient with known documente d moderate coronary artery disease with rare episodes of angina. Most recent anginal episode was May 2018 in the setting of urosepsis . Her antiangin al medicatio n were adjusted and patient had had no recurrent symptoms since then. She continues to be pretty active on daily basis and picks care of all her house needs including grocery shopping. She denies any resting or exertiona l chest pain, dyspnea, orthopnea or PND. She has no active angina, clinical heart failure and no arrhythmi a. Patient is scheduled to undergo oral surgery with tonsillec emanuel. She is considere d at acceptabl e risk to proceed with this planned procedure while on optimal medical therapy. No further cardiac testing is needed. 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 Art o cell cell 00:00: automatic n carcinoma carcinoma 00 ally from of of request palatine palatine for tonsil tonsil surgery [id number] Tonsil Tonsil Disease Active carcinoma carcinoma 2-08 Marcell rso 00:00: n 00 Atheroscle Atheroscle Disease Active M D rotic rotic 2- Anderso heart heart 00:00: n disease of disease of 00 [place] coronary coronary artery artery with with angina angina pectoris pectoris Squamous Squamous Disease Active Overview: cell cell 2-13 Added Anderso carcinoma carcinoma 00:00: automatic n of tongue of tongue 00 ally from request for surgery [id number] Personal Personal Disease Active 2015-07 history of history of 1-14 An derso melanoma melanoma 00:00: n of skin of skin 00 Oral Oral Disease Active lichen lichen 7-16 Anderso planus planus 00:00: n 00 Lichen Lichen Disease Active planus planus Andestrellita n Leukoplaki Leukoplaki Disease Active M D a of oral a of oral Marcell rso mucosa mucosa n Diabetes Diabetes Disease Active mellitus mellitus Art o without without n mention of mention of complicati complicati on, type on, type II or II or unspecifie unspecifie d type, d type, not stated not stated as as uncontroll uncontroll ed (aka ed (aka 250.00) 250.00) Gastroesop Gastroesop Disease Active M D hageal hageal Anderso reflux reflux n disease disease (aka GERD (aka GERD - - Gastro-eso Gastro-eso phageal phageal reflux reflux disease) disease) Hypothyroi Hypothyroi Disease Active M D dism dism Anderso n Gout Gout Disease Active MD Jose rich Atrial Atrial Disease Active Overview: fibrillati fibrillati H/o PAF A nderso on on during n both episodes of urosepsis , resolved. Personal Personal Disease Active history of history of An derso stroke stroke n Hypertensi Hypertensi Disease Active M D on on Anderso n H/O: H/O: Disease Active hysterecto hysterecto An derso my my n Allergies, Adverse Reactions, Alerts This patient has no known allergies or adverse reactions. Family History Family Member Diagnosis Comments Start Date Stop Date Source Maternal aunt -Gynecology (Ovary, MD Crowell Endometrial, Cervix, Vagina) Maternal uncle -Gastrointestinal MD Crowell (Esophagus, Liver, Bile Duct, Stomach, Pancreas, Colon, Rectum, Anus Natural sister -Multiple Myeloma MD Crowell Natural sister -Melanoma MD Jose rich Natural sister -Gastrointestinal MD Crowell (Esophagus, Liver, Bile Duct, Stomach, Pancreas, Colon, Rectum, Anus Social History Social Habit Start Date Stop Date Quantity Comments Source Sex Assigned At F MD Cordova on Tobacco use and 2020-04-18 2020-04-18 Never used MD Cordova on exposure 00:00:00 00:00:00 Alcohol intake 2020-04-18 2020-04-18 Current MD Jose rich 00:00:00 00:00:00 non-drinker of alcohol (finding) Smoking Status Start Date Stop Date Source Never smoker MD Crowell Medications Ordered Filled Start Stop Current Ordering Indication Dosage Frequency Signature Comments Components Source Medication Medication Date Date Medication? Clinician (SIG) Name Name rosuvastati 2019-07 Yes 10mg Take 10 mg n (CRESTOR) 0-29 by mouth Marcell rso 10 mg 05:16: at n tablet 50 bedtime. aspirin 81 2019-07 Yes 81mg Take 81 mg M D mg EC 0-29 by mouth Anderso tablet 05:16: daily. n 50 UNABLE TO 2019-07 Yes 1{capsu Take 1 MD FIND 0-29 le} capsule by Anderso 05:16: mouth n 50 daily. Med Name: Vision Alive MAX dexamethaso Yes Oral lichen 1mg Take 10 mL ne 04-18 planus (1 mg) by Anderso (DECADRON) 00:00: mouth n 0.5 mg/5 mL 00 twice solution daily. Swish and spit. May discontinu e once flare-up subsides. May resume if irritation returns. triamcinolo 2020- No Oral lichen by ne 04-18 10-07 planus periodonta Art o (Oralone) 00:00: 04:59 l route at n 0.1% paste 00 :00 bedtime for 7 days. atorvastati 2019- Yes TK 1 T PO M D n (LIPITOR) 9-23 D HS Anderso 10 mg 00:00: n tablet 00 losartan 2019- Yes TK 1 T PO (COZAAR) 25 9-23 D IN THE Marcell rso mg tablet 00:00: MORNING n 00 isosorbide 2019-0 Yes TK 1 T PO mononitrate 5-23 D Anderso (IMDUR) 30 00:00: n mg 24 hr 00 tablet dexamethaso 2019-0 Yes Oral lichen 1mg Take 10 mL ne 5-19 planus (1 mg) by Anderso (DECADRON) 00:00: mouth n 0.5 mg/5 mL 00 twice solution daily. Swish and spit. May discontinu e once flare-up subsides. May resume if irritation returns. hydrALAZINE 2018-07 Yes 1{tbl} Take 1 MD (APRESOLINE 0-06 tablet by And erso ) 10 mg 00:00: mouth n tablet 00 twice daily. metoprolol Yes TAKE 1/2 MD tartrate 7-11 TABLET BY Art o (LOPRESSOR) 00:00: MOUTH n 100 mg 00 TWICE A tablet DAY RANEXA 500 2017-07 Yes 1{tbl} Take 1 MD mg 12 hr 2-07 tablet by Art o tablet 00:00: mouth n 00 twice daily. omeprazole 2017-07 Yes 1{capsu Take 1 MD (PriLOSEC) 2-06 le} capsule by And erso 40 MG 00:00: mouth n capsule 00 daily. levothyroxi 2016-07 Yes 1{tbl} Take 1 MD ne 0-24 tablet by Anderso (SYNTHROID, 00:00: mouth n LEVOTHROID) 00 daily. 88 mcg tablet magnesium Yes 400mg Take 400 MD oxide 7-14 mg by Anderso (MAOX) 400 00:00: mouth n mg tablet 00 daily. nitroglycer Yes .4mg Take 0.4 MD in 7-14 mg by Anderso (NITROSTAT) 00:00: mouth as n 0.4 mg SL 00 needed for tablet chest pain. Call 911 if no relief after 3 doses Vital Signs Vital Name Observation Time Observation Value Comments Source Systolic blood 2020-04-18 15:11:16 167 mm[Hg] Asymptomatic. BP MD Crowell pressure meds taken this am Diastolic blood 2020-04-18 15:11:16 85 mm[Hg] Asymptomatic. BP Lexii Crowell pressure meds taken this am Heart rate 2020-04-18 15:11:16 68 /min MD Jeronimo santillan Body temperature 2020-04-18 15:11:16 35.78 Dena MD Kellie espinosa Respiratory rate 2020-04-18 15:11:16 16 /min MD Kellie espinosa Body weight 2020-04-18 14:58:00 73.3 kg MD Jeronimo santillan BMI 2020-04-18 14:58:00 28.28 kg/m2 MD Jeronimo santillan Procedures Procedure Date / Time Performed Performing Clinician Sourc e CT SOFT TISSUE NECK W CONTRAST 2020-04-18 13:08:06 Karyn Bradford MD POC CREATININE 2020-04-18 12:38:00 Naresh Bradford MD BLOOD UREA NITROGEN 2020-04-18 12:34:00 Naresh Bradford MD SERUM CREATININE 2020-04-18 12:34:00 Naresh Bradford MD SERUM CREATININE 2020-04-18 12:34:00 Naresh Bradford MD .GLOMERULAR FILTRATION RATE 2020-04-18 12:34:00 Naresh Bradford MD Encounters Start End Encounter Admission Attending Care Care Encounter Source Date/Time Date/Time Type Type Clinicians Facility Department ID 2020-03-14 2020-03-14 Outpatient DAPHNE BRADFORD ANABELL MDA [id number] 00:00:00 00:00:00 NARESH rich 2020-03-14 2020-03-14 Outpatient DAPHNE BRADFORD ANABELL MDA [id number] 00:00:00 00:00:00 NARESH rich 2020-03-14 2020-03-14 Outpatient DAPHNE TOMAS ANABELL MDA [id number] 00:00:00 00:00:00 , LUIS MIGUEL rich Results Test Description Test Time Test Comments Results Result Comments Source Glomerular Filtration Rate 2020-04-18 14:02:30 Test Item Value Reference Range Interpretation Comme nts eGFR-AA (test code = 8062) 61 See_Comment N ormal eGFR: >= 60 mL/min/1.73 m2Note: The eGF R is calculated using the CKD-E PI equation. The eGFR declines w ith age. eGFR <60 mL/min/1.73 m2 is considered as "decreased". Th is equation should only be used for patients 18 and older. A ccording to the National Kidney Foundation's Kidney Disease Outcome Quality Initiative (KDO QI) classification and 2012 Kidney Disease Improvi ng Global Outcomes (KDIGO ) Clinical Practice Guidel ine, the stage of CKD should be c ategorized based on estimated GF R. Stage Description GFR mL/min/1.73 m21 Normal or high GFR > =902 Mildly decreased GFR 60-893a Mildly to moderately decreased GFR 45-593b Moderately to s everely decreased GFR 30-444 Severely decreased GFR 15-295 Kidney failure < 15 [Automated message] The sy stem which generated this result transmitted ref erence range: >=60 mL/min/1.7 3 sq. m. The reference range was not used to interpret this result as normal/abnormal . eGFR-IMELDA (test code = 8063) 53 See_Comment L Normal eGFR: >= 60 mL/min/1.73 m2Note: The eGF R is calculated using the CKD-E PI equation. The eGFR declines w ith age. eGFR <60 mL/min/1.73 m2 is considered as "decreased". Th is equation should only be used for patients 18 and older. A ccording to the National Kidney Foundation's Kidney Disease Outcome Quality Initiative (KDO QI) classification and 2012 Kidney Disease Improvi ng Global Outcomes (KDIGO ) Clinical Practice Guidel ine, the stage of CKD should be c ategorized based on estimated GF R. Stage Description GFR mL/min/1.73 m21 Normal or high GFR > =902 Mildly decreased GFR 60-893a Mildly to moderately decreased GFR 45-593b Moderately to s everely decreased GFR 30-444 Severely decreased GFR 15-295 Kidney failure < 15 [Automated message] The sy stem which generated this result transmitted ref erence range: >=60 mL/min/1.7 3 sq. m. The reference range was not used to interpret this result as normal/abnormal . Lab Interpretation (test code Abnormal = 82338-7) MD [id number] 14:02:29 Test Item Value Reference Range Interpretation Comments BUN (test code = 5055) 15 mg/dL 6-23 MD Crowell.Serum [id number] 14:02:28 Test Item Value Reference Range Interpretation Comments Creatinine (test code = 5399) 1.03 mg/dL 0.51-0.95 H Lab Interpretation (test code = Abnormal 11898-0) MD CrowellCT Soft Tissue Neck with [id number] 13:35:22 1. Stable treatment related changes without any evidence of local tumor recurrence within the oralcavity or the oropharynx. 2. No evidence of new cervical adenopathy to suggest lolly disease recurrence in the neck. Occasional bean viner errors may have occurred due to the inherent limitations of voice recognition software, and incorrect words/phrases may have been missed during proofreading. Please interpret using context where substitutions have occurred. 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 Hypoattenuating nodules are reidentified within the thyroid gland. Atherosclerotic ossificationis present at bilateral common carotid artery bifurcations resulting in mild narrowing of the right ICA origin.The visualized orbits and brain parenchyma do not reveal any focal lesions. Trace mucosal t hickening is noted within the right maxillary sinus.The partially imaged lung apices are without anydominant masses.IMPRESSION:1. Stable treatment related changes without any evidence of local tumor recurrence within the oral cavity or the oropharynx.2. No evidence of new cervical adenopathy to suggest lolly disease recurrence in the neck.Occasional bean viner errors may have occurred due to the inherent limitations of voice recognition software, and incorrect words/phrases may have been missed during proofreading. Please interpret using context where substitutions have occurred.[facility] [id number] 12:41:02 Test Item Value Reference Range Interpretation Comments POC Crea (test code 1.0 mg/dL 0.6-1.3 Medicati ons, especially = 24780-9) hydroxyurea or supplements, hunt ch as ascorbate, can interfere with test resul ts causing a falsely and significantlyhi gher result than exp ected. If a problem is hunt spected with a patient' s result, a sample should be sent to the [facility] for confirmatory te sting. Method descript ion: The i-STAT is an an alyzer used for in vit ro quantification of various analytes in who le blood. The device uses a single disposable cart ridge which contains microfabricated sensors, a calibration s olution, fluidics system , and a waste chamber. Each test cartridge conta ins chemically sens itive biosensors on a silicon chip that are c onfigured to perform spec ific tests. The microfabricated sensors measure analyte concentration b y an electrochemical assay. POC eGFR-AA (test 63 See_Comment Normal eGF R >= 60 code = 73501-3) mL/min/1.73 m2 The eGFR is calculated u sing the CKD-EPI equatio n. The eGFR declines w ith age. eGFR <60 mL/min /1.73 m2 is considered a s "decreased" Thi s equation should only be used for patients 18 and older. According to th e National Kidney Foundati on's Kidney Disease Outcome Quality Initiat mindy (KDOQI) classif ication and 2012 Kidney Disease Improving Globa l Outcomes (KDIGO) Clinica l Practice Guideline, the stage of CKD should be c ategorized based on estima bertha GFR. Stage Descripti on GFR mL/min/1.73 m21 Kidney damage with nor mal or high GFR >= 902 Kidney damage with mil d decrease in GFR 60-89 3a Mild to moderate decrea se in GFR 45-593b Mode rate to severe decrease in GFR 30-444 Severe decrease in GFR 15-29 5 Kidney failure <15 (or dialysis) [Aut omated message] The sy stem which generated this result transmitted ref erence range: >=60 mL/ min/1.73 m2. The referen ce range was not used to interpret this result as normal/abnormal . POC eGFR-IMELDA (test 54 See_Comment L Normal eG FR >= 60 code = 80272-2) mL/min/1.73 m2 The eGFR is calculated u sing the CKD-EPI equatio n. The eGFR declines w ith age. eGFR <60 mL/min /1.73 m2 is considered a s "decreased" Thi s equation should only be used for patients 18 and older. According to th e National Kidney Foundati on's Kidney Disease Outcome Quality Initiat mindy (KDOQI) classif ication and 2012 Kidney Disease Improving Globa l Outcomes (KDIGO) Clinica l Practice Guideline, the stage of CKD should be c ategorized based on estima bertha GFR. Stage Descripti on GFR mL/min/1.73 m21 Kidney damage with nor mal or high GFR >= 902 Kidney damage with mil d decrease in GFR 60-89 3a Mild to moderate decrea se in GFR 45-593b Mode rate to severe decrease in GFR 30-444 Severe decrease in GFR 15-29 5 Kidney failure <15 (or dialysis) [Aut omated message] The sy stem which generated this result transmitted ref erence range: >=60 mL/ min/1.73 m2. The referen ce range was not used to interpret this result as normal/abnormal . POC Clean Dev (test Yes code = 6672) Lab Interpretation Abnormal (test code = 91492-0) MD Crowell
[2020-12-08 04:56] LABS: Absolute Lymphocytes (CBC) 1.7 K/uL (0.7-4.9); Basophils % 0.6 % (0-1.3); Hematocrit 46.3 % (36.0-45.0); Lymphocytes % 14.3 % (15.3-44.8); MPV 9.3 fL (7.6-11.3); RBC Red Blood Cell Count 5.11 M/uL (3.86-4.86)
[2020-12-08 05:05] LABS: Protime INR 0.93
[2020-12-08 05:26] LABS: ALT/SGPT 17 U/L (12-78); AST/SGOT 20 U/L (15-37); Albumin 4.3 g/dL (3.4-5.0); Alkaline Phosphatase 113 U/L (45-117); BUN Blood Urea Nitrogen 11 mg/dL (7-18); Bicarbonate 21 mmol/L (21-32); Bilirubin Direct 0.1 mg/dL (0-0.2); Bilirubin Total 0.6 mg/dL (0.2-1.0); Glucose Level 178 mg/dL (74-106); Magnesium 1.9 mg/dL (1.8-2.4); NT PRO-BNP 838 pg/mL (<450); Sodium Level 138 mmol/L (136-145); Troponin (Emerg Dept Use Only) < 0.02 ng/mL (0.0-0.045)
[2020-12-08] MEDS ORDERED: CEFTRIAXONE/SWI 1gm 1 GM/10 ML SYR ONE (05:33)
[2020-12-08] MEDS ORDERED: METRONIDAZOLE 500mg IVPB 500 MG/100 ML BAG IV ONE ×2 (05:33→12:39)
[2020-12-08] MEDS ORDERED: PANTOPRAZOLE 40 MG INJ ONE (05:34)
[2020-12-08] MEDS ORDERED: FAMOTIDINE 20 MG/2 ML VIAL IV ONE (05:57)
--- NOTE | 2020-12-08 06:08 | EDPHYS ---
Physician Documentation [facility] Name: Connie Buckley Age: 79 yrs Sex: Female : 1940 Arrival Date: 12/08/2020 Time: 04:[address] Private MD: SHAR Physician Fer Crowell HPI: 12/08 05:03 This 79 yrs old Female presents to ER via EMS with complaints of Abdominal sharri Pain. 05:03 The patient presents with abdominal pain in the lower abdomen. Onset: The sharri symptoms/episode began/occurred this morning. The symptoms do not radiate. Associated signs and symptoms: Pertinent positives: nausea. The symptoms are described as constant, crampy. Modifying factors: The symptoms are alleviated by nothing, the symptoms are aggravated by movement. Severity of pain: At its worst the pain was moderate in the emergency department the pain is unchanged. The patient has not experienced similar symptoms in the past. Historical: - Allergies: 04:32 amlodipine besylate; rr5 04:32 Clonidine; rr5 04:32 Codeine; rr5 04:32 doxazosin; rr5 04:32 ezetimibe; rr5 04:32 Indomethacin; rr5 - Home Meds: 04:32 Famotidine Oral [Active]; Isosorbide Dinitrate Oral [Active]; levothyroxine 100 mcg tab rr5 1 tab once daily [Active]; Nitrostat 0.3 mg SL subl as needed [Active]; rosuvastatin oral oral [Active]; - PMHx: 04:32 Diabetes - NIDDM; Hyperlipidemia; Hypertension; Hypothyroidism; TIA; Angina; mouth rr5 cancer; - Immunization history:: Adult Immunizations up to date. - Social history:: Smoking status: unknown. - Family history:: not pertinent. ROS: 05:03 Constitutional: Negative for fever, chills, and weight loss, Eyes: Negative for injury, sharri pain, redness, and discharge, ENT: Negative for injury, pain, and discharge, Neck: Negative for injury, pain, and swelling, Cardiovascular: Negative for chest pain, palpitations, and edema, Respiratory: Negative for shortness of breath, cough, wheezing, and pleuritic chest pain, Back: Negative for injury and pain, : Negative for injury, bleeding, discharge, and swelling, MS/Extremity: Negative for injury and deformity, Skin: Negative for injury, rash, and discoloration, Neuro: Negative for headache, weakness, numbness, tingling, and seizure, Psych: Negative for depression, anxiety, suicide ideation, homicidal ideation, and hallucinations, Allergy/Immunology: Negative for hives, rash, and allergies, Endocrine: Negative for neck swelling, polydipsia, polyuria, polyphagia, and marked weight changes, Hematologic/Lymphatic: Negative for swollen nodes, abnormal bleeding, and unusual bruising. 05:03 Abdomen/GI: Positive for abdominal pain, nausea, abdominal distension, of the right lower quadrant and left lower quadrant. Exam: 05:03 Constitutional: This is a well developed, well nourished patient who is awake, alert, sharri and in no acute distress. Head/Face: Normocephalic, atraumatic. Eyes: Pupils equal round and reactive to light, extra-ocular motions intact. Lids and lashes normal. Conjunctiva and sclera are non-icteric and not injected. Cornea within normal limits. Periorbital areas with no swelling, redness, or edema. ENT: Nares patent. No nasal discharge, no septal abnormalities noted. Tympanic membranes are normal and external auditory canals are clear. Oropharynx with no redness, swelling, or masses, exudates, or evidence of obstruction, uvula midline. Mucous membranes moist. Neck: Trachea midline, no thyromegaly or masses palpated, and no cervical lymphadenopathy. Supple, full range of motion without nuchal rigidity, or vertebral point tenderness. No Meningismus. Chest/axilla: Normal chest wall appearance and motion. Nontender with no deformity. No lesions are appreciated. Cardiovascular: Regular rate and rhythm with a normal S1 and S2. No gallops, murmurs, or rubs. Normal PMI, no JVD. No pulse deficits. Respiratory: Lungs have equal breath sounds bilaterally, clear to auscultation and percussion. No rales, rhonchi or wheezes noted. No increased work of breathing, no retractions or nasal flaring. Back: No spinal tenderness. No costovertebral tenderness. Full range of motion. Skin: Warm, dry with normal turgor. Normal color with no rashes, no lesions, and no evidence of cellulitis. MS/ Extremity: Pulses equal, no cyanosis. Neurovascular intact. Full, normal range of motion. Neuro: Awake and alert, GCS 15, oriented to person, place, time, and situation. Cranial nerves II-XII grossly intact. Motor strength 5/5 in all extremities. Sensory grossly intact. Cerebellar exam normal. Normal gait. Psych: Awake, alert, with orientation to person, place and time. Behavior, mood, and affect are within normal limits. 05:03 Abdomen/GI: Inspection: abdomen appears normal, Palpation: moderate abdominal tenderness, in the right lower quadrant and left lower quadrant, Liver: no appreciated palpable abnormalities, Hernia: noted in the umbilical area. 05:07 ECG was reviewed by the Attending Physician. [facility] Vital Signs: 04:25 BP 182 / 100; Pulse 77; Resp 16; Temp 97.5; Pulse Ox 100% ; Weight 70.31 kg; Height 5 rr5 ft. 4 in. (162.56 cm); Pain 8/10; 05:56 BP 175 / 95; Pulse 90; Resp 17; Pulse Ox 98% ; rr5 04:25 Body Mass Index 26.61 (70.31 kg, 162.56 cm) rr5 MDM: 04:25 Patient medically screened. [facility] 05:05 Differential diagnosis: appendicitis, bowel obstruction, cholecystitis, Cholelithiasis, sharri gastritis, gastroesophageal reflux disease, Mesenteric ischemia or infarction, non-specific abd pain, pancreatitis, Peptic Ulcer Disease, Pyelonephritis, urinary tract infection. Data reviewed: vital signs, nurses notes, lab test result(s), EKG, radiologic studies, CT scan, plain films. Data interpreted: youth nutritional monitor: rate is 77 beats/min, rhythm is regular, Pulse oximetry: on room air is 100 %. Test interpretation: by ED physician or midlevel provider: ECG, plain radiologic studies. Counseling: I had a detailed discussion with the patient and/or guardian regarding: the historical points, exam findings, and any diagnostic results supporting the discharge/admit diagnosis, lab results, radiology results, the need for further work-up and treatment in the hospital. 07:23 ED course: Dr. Arteaga notified via text and Dr. Reno consulted. Will see the patient kdr in the ED shortly. The patient last ate at 6:00 PM yesterday. She denies need for pain or nausea medications at this time. She otherwise appears comfortable and has been informed of the current diagnosis and pending surgical consult. 12/08 04:43 Order name: Basic Metabolic Panel; Complete Time: 06:05 5 12/08 04:43 Order name: CBC with Diff; Complete Time: 06:05 5 12/08 04:43 Order name: LFT's; Complete Time: 06:05 rr 12/08 04:43 Order name: Magnesium; Complete Time: 06:05 [facility] 12/08 04:43 Order name: NT PRO-BNP; Complete Time: 06:05 [facility] 12/08 04:43 Order name: PT-INR; Complete Time: 06:05 [facility] 12/08 04:43 Order name: Troponin (emerg Dept Use Only); Complete Time: 06:05 [facility] 12/08 05:02 Order name: Lipase [facility] 12/08 06:07 Order name: Urine Culture [facility] 12/08 06:53 Order name: Urine Microscopic Only [facility] 12/08 06:54 Order name: Urine Dipstick-Ancillary [facility] 12/08 07:44 Order name: SARS-COV-[address] [facility] 12/08 10:45 Order name: Urine Microscopic Only [facility] 12/08 04:43 Order name: XRAY Chest (1 view) [facility] 12/08 04:43 Order name: EKG; Complete Time: 04:44 [facility] 12/08 04:43 Order name: Cardiac monitoring; Complete Time: 04:44 12/08 04:43 Order name: EKG - Nurse/Tech; Complete Time: 04:44 [facility] 12/08 04:43 Order name: IV Saline Lock; Complete Time: 04:44 [facility] 12/08 04:43 Order name: Labs collected and sent; Complete Time: 04:44 12/08 04:43 Order name: O2 Per Protocol; Complete Time: 04:44 rr 12/08 04:43 Order name: O2 Sat Monitoring; Complete Time: 04:44 rr12/08 05:02 Order name: CT Abd/Pelvis - IV Contrast Only [facility] 12/08 06:07 Order name: Urine Dipstick-Ancillary (obtain specimen); Complete Time: 06:53 sharri EC: Rate is 77 beats/min. Rhythm is regular. QRS [place] is Normal. IN interval is normal. QRS sharri interval is normal. QT interval is normal. No Q waves. T waves are Normal. No ST changes noted. Clinical impression: NSR w/ Non-specific ST/T Changes and No evidence of ischemia. Interpreted by me. Reviewed by me. Administered Medications: 05:27 Drug: Flagyl (metroNIDAZOLE) 500 mg Volume: 100 ml; Route: IVPB; Rate: 200 ml/hr; rr5 Infused Over: 30 mins; Site: right antecubital; 06:25 Follow up: Response: No adverse reaction; IV Status: Completed infusion; IV Intake: rr5 100ml 05:28 Drug: Rocephin (cefTRIAXone) 1 grams Route: IV; Rate: per protocol; Site: right rr5 antecubital; 06:20 Follow up: Response: No adverse reaction; IV Status: Completed infusion; IV Intake: [id number] 05:44 Drug: Pepcid (famotidine) 20 mg Route: IVP; Site: right antecubital; rr5 06:40 Follow up: Response: No adverse reaction rr5 Disposition: 12/08/20 06:07 Hospitalization ordered by Carrington Arteaga for Inpatient Admission. Preliminary diagnosis are Abdominal tenderness, Type 2 diabetes mellitus, Elevated white blood cell count. - Bed requested for Telemetry/MedSurg (Inpatient). - Status is Inpatient Admission. jl7 - Condition is Stable. - Problem is new. - Symptoms have improved. Signatures: Dispatcher [employer] [facility] Mindy Newberry RN RN dw Anderson, Corey, MD MD cha Rittger, Kevin, MD MD kdr Lasagna, Tonya, RN RN tl1 Aster Freeman RN RN jl7 Stephane Shafer RN RN rr5 Corrections: (The following items were deleted from the chart) 05:32 05:03 CORONAVIRUS+MR.LAB.BRZ ordered. [facility] 06:37 06:07 Hospitalization Ordered by Carrington Arteaga MD for Inpatient Admission. Preliminary tl1 diagnosis is Abdominal tenderness; Type 2 diabetes mellitus; Elevated white blood cell count. Bed requested for Telemetry/MedSurg (Inpatient). Status is Inpatient Admission. Condition is Stable. Problem is new. Symptoms have improved. [facility] 12:30 06:37 12/08/2020 06:07 Hospitalization Ordered by Carrington Arteaga MD for Inpatient dw Admission. Preliminary diagnosis is Abdominal tenderness; Type 2 diabetes mellitus; Elevated white blood cell count. Bed requested for [facility] ER HOLD. Status is Inpatient Admission. Condition is Stable. Problem is new. Symptoms have improved. tl1 13:46 12:30 12/08/2020 06:07 Hospitalization Ordered by Carrington Arteaga MD for Inpatient jl7 Admission. Preliminary diagnosis is Abdominal tenderness; Type 2 diabetes mellitus; Elevated white blood cell count. Bed requested for Telemetry/MedSurg (Inpatient). Status is Inpatient Admission. Condition is Stable. Problem is new. Symptoms have improved. dw
--- NOTE | 2020-12-08 06:08 | ER ---
Nurse's Notes [facility] Name: Connie Buckley Age: 79 yrs Sex: Female : 1940 Arrival Date: 12/08/2020 Time: 04:[address] Private MD: Diagnosis: Abdominal tenderness;Type 2 diabetes mellitus;Elevated white blood cell count Presentation: 12/08 04:25 Chief complaint: EMS states: having abdominal pain with vomiting 4x and dry heaving. rr5 Coronavirus screen: Client denies travel out of the [place] in the last 14 days. At this time, the client does not indicate any symptoms associated with coronavirus-19. Ebola Screen: Patient negative for fever greater than or equal to 101.5 degrees Fahrenheit, and additional compatible Ebola Virus Disease symptoms Patient denies exposure to infectious person. Patient denies travel to an Ebola-affected area in the 21 days before illness onset. Initial Sepsis Screen: Does the patient meet any 2 criteria? No. Patient's initial sepsis screen is negative. Does the patient have a suspected source of infection? No. Patient's initial sepsis screen is negative. Risk Assessment: Do you want to hurt yourself or someone else? Patient reports no desire to harm self or others. Onset of symptoms was December 08, 2020. Care prior to arrival: Medication(s) given: zofran 4 mg. 04:25 Method Of Arrival: EMS: [facility] rr5 04:25 Acuity: MARC 3 rr5 Historical: - Allergies: 04:32 amlodipine besylate; rr5 04:32 Clonidine; rr5 04:32 Codeine; rr5 04:32 doxazosin; rr5 04:32 ezetimibe; rr5 04:32 Indomethacin; rr5 - Home Meds: 04:32 Famotidine Oral [Active]; Isosorbide Dinitrate Oral [Active]; levothyroxine 100 mcg tab rr5 1 tab once daily [Active]; Nitrostat 0.3 mg SL subl as needed [Active]; rosuvastatin oral oral [Active]; - PMHx: 04:32 Diabetes - NIDDM; Hyperlipidemia; Hypertension; Hypothyroidism; TIA; Angina; mouth rr5 cancer; - Immunization history:: Adult Immunizations up to date. - Social history:: Smoking status: unknown. - Family history:: not pertinent. Screenin:33 Abuse screen: Denies threats or abuse. Denies injuries from another. Nutritional rr5 screening: No deficits noted. Tuberculosis screening: No symptoms or risk factors identified. Fall Risk IV access (20 points). Total Alvarez Fall Scale indicates No Risk (0-24 pts). Assessment: 04:34 General: Appears in no apparent distress. uncomfortable, ill, Behavior is calm, rr5 cooperative, appropriate for age. Pain: Complains of pain in abdomen Pain currently is 8 out of 10 on a pain scale. Quality of pain is described as aching, Pain began gradually, Is intermittent. Neuro: Level of Consciousness is awake, alert, obeys commands, Oriented to person, place, time, situation. Cardiovascular: Capillary refill < 3 seconds Patient's skin is warm and dry. Respiratory: Airway is patent Respiratory effort is even, unlabored, Respiratory pattern is regular, symmetrical. GI: Abdomen is round non-distended, Abd is soft and non tender Reports lower abdominal pain, upper abdominal pain, nausea, vomiting. : No signs and/or symptoms were reported regarding the genitourinary system. EENT: No signs and/or symptoms were reported regarding the EENT system. Derm: Skin is intact, is healthy with good turgor, Skin temperature is warm. Musculoskeletal: Capillary refill < 3 seconds. 05:55 Reassessment: Patient appears in no apparent distress at this time. Patient is alert, rr5 oriented x 3, equal unlabored respirations, skin warm/dry/pink. send to CT scan assisted by ct staff. Vital Signs: 04:25 BP 182 / 100; Pulse 77; Resp 16; Temp 97.5; Pulse Ox 100% ; Weight 70.31 kg; Height 5 rr5 ft. 4 in. (162.56 cm); Pain 8/10; 05:56 BP 175 / 95; Pulse 90; Resp 17; Pulse Ox 98% ; rr5 04:25 Body Mass Index 26.61 (70.31 kg, 162.56 cm) rr5 ED Course: 04:25 Patient arrived in ED. rr5 04:25 Fer Crowell MD is Attending Physician. [facility] 04:27 Triage completed. rr5 04:30 Patient has correct armband on for positive identification. Placed in gown. Bed in low rr5 position. Call light in reach. Side rails up X2. security monitor on. Pulse ox on. NIBP on. 04:33 Arm band placed on right wrist. rr5 04:33 EKG done, by ED staff, reviewed by Fer Crowell MD. Inserted saline lock: 20 gauge in rr5 right antecubital area, using aseptic technique. ,using aseptic technique. inserted by Reynaldo WILL Blood collected. 04:43 Stephane Shafer RN is Primary Nurse. rr5 05:15 XRAY Chest (1 view) In Process Unspecified. EDMS 05:57 No provider procedures requiring assistance completed. rr5 06:06 Carrington Arteaga MD is Hospitalizing Provider. sharri 06:12 CT Abd/Pelvis - IV Contrast Only In Process Unspecified. EDMS 06:55 Patient admitted, IV remains in place. intact, No redness/swelling at site. rr5 08:59 Primary Nurse role handed off by Stephane Shafer RN 10:12 Royal Kidd RN is Primary Nurse. em Administered Medications: 05:27 Drug: Flagyl (metroNIDAZOLE) 500 mg Volume: 100 ml; Route: IVPB; Rate: 200 ml/hr; rr5 Infused Over: 30 mins; Site: right antecubital; 06:25 Follow up: Response: No adverse reaction; IV Status: Completed infusion; IV Intake: rr5 100ml 05:28 Drug: Rocephin (cefTRIAXone) 1 grams Route: IV; Rate: per protocol; Site: right rr5 antecubital; 06:20 Follow up: Response: No adverse reaction; IV Status: Completed infusion; IV Intake: [id number] 05:44 Drug: Pepcid (famotidine) 20 mg Route: IVP; Site: right antecubital; rr5 06:40 Follow up: Response: No adverse reaction rr5 Intake: 06:20 IV: 10ml; Total: 10ml. rr5 06:25 IV: 100ml; Total: 110ml. rr5 Outcome: 06:07 Decision to Hospitalize by Provider. sharri 06:54 Admitted to ER Hold. Please see [facility] for further documentation. rr5 06:54 Condition: stable 06:54 Instructed on the need for admit. 13:46 Patient left the ED. jl7 Signatures: Dispatcher [employer] Leidy Hahn RN RN sv Anderson, Corey, MD MD cha Kidd, Royal, RN RN em Aster Freeman, RN RN jl7 Stephane Shafer RN RN rr5
[2020-12-08 06:54] LABS: Urine Blood 1+ (Negative); Urine Glucose Negative (Negative); Urine Protein 3+ (Negative)
--- NOTE | 2020-12-08 08:27 | RAD REPORT ---
EXAM DESCRIPTION: ADDENDUM #1 THIS REPORT CONTAINS FINDINGS THAT MAY BE CRITICAL TO PATIENT CARE: The findings were verbally discu ssed via telephone conference with Dr Lorenzo on 12/08/2020 at 7:06 AM CDT. Electronically signed by: Stalin Hannah MD 12/08/2020 7:06 AM CDT End of Addendum EXAM DESCRIPTION: Abdomen Pelvis W Contrast CLINICAL HISTORY: 79 years Female ABD PAIN TECHNIQUE: CT of the abdomen and pelvis using intravenous contrast. All CT scans at this facility us e dose modulation, iterative reconstruction, and/or weight based dosing when appropriate to reduce ra diation dose to as low as reasonably achievable. COMPARISON: None. FINDINGS: Lower chest: Lung bases are clear. Atherosclerotic calcification of the coronary arteries. Abdomen/Pelvis: Liver: No focal lesion. Gallbladder: Normal. Pancreas: Within normal limits. Spleen: Within normal limits. Kidney: No stone or hydronephrosis. Multiple bilateral renal cysts, the largest is on the left measur ing 3.7 x 3.2 cm. Adrenal glands: Within normal limits. Vascular structures: Unremarkable. Bowel: Anterior abdominal wall hernia containing short segment of mildly distended ascending colon wi thin the hernia sac. The afferent and efferent portions of the colon at the neck of the hernia are de compressed. Appendix: Not seen. Peritoneum: Small free fluid in the hernia sac. No free air. Lymph Nodes: No lymphadenopathy. Reproductive: Status post hysterectomy. Urinary bladder: Unremarkable. Osseous structures: Multilevel degenerative changes, worse at L5-S1. Grade 1 degenerative anterolisth esis of L4. Soft tissues: Lower anterior abdominal wall defect measuring 4.7 cm in diameter. IMPRESSION: Anterior abdominal wall hernia containing short segment of mildly distended ascending co candace within the hernia sac. The afferent and efferent portions of the colon at the neck of the hernia are decompressed. In addition, there is a small free fluid within the hernia sac. Constellation of fi ndings suggest developing closed-loop obstruction. Electronically signed by: Stalin Hannah MD 12/08/2020 6:55 AM CDT Due to temporary technical issues with the PACS/Fluency reporting system, reports are being signed by the in house radiologist without review as a courtesy to ensure prompt reporting. The interpreting r adiologist is fully responsible for the content of the report.
--- NOTE | 2020-12-08 08:54 | RAD REPORT ---
EXAM DESCRIPTION: RAD - Chest Single View - 12/08/2020 5:16 am CLINICAL HISTORY: abdominal pain history of angina Chest pain. COMPARISON: Chest Single View dated 07/05/2019; Chest Single View dated 05/25/2018; Chest Single View dated 05/21/2018; CHEST SINGLE VIEW dated 05/17/2013 FINDINGS: Portable technique limits examination quality. The lungs are grossly clear. The heart is normal in size. No displaced fractures. IMPRESSION: No acute intrathoracic process suspected.
[2020-12-08] MEDS ORDERED: D5W 1,000 ML IV ONE (08:59)
[2020-12-08] MEDS ORDERED: ONDANSETRON 4 MG/2 ML VIAL IV PRN (09:25)
[2020-12-08] MEDS ORDERED: MORPHINE 2 MG/ML SYR IV PRN (09:25)
[2020-12-08] MEDS ORDERED: ACETAMINOPHEN 325 MG TABLET PO PRN (09:25)
[2020-12-08] MEDS ORDERED: NA CHLORIDE 0.9% 1,000 ML IV SCH (09:25)
[2020-12-08] MEDS: D5 0.9 NS 1,000 ML IV SCH ×3 (09:30→20:00)
[2020-12-08 10:45] LABS: Urine Bacteria 20-50 /HPF (<20); Urine White Blood Cell Casts 0-5 /LPF (NONE SEEN)
[2020-12-08] MEDS: METRONIDAZOLE 500mg IVPB 500 MG/100 ML BAG IV SCH ×3 (12:00→23:31)
[2020-12-08 13:44] VITALS: BMI 25.8
--- NOTE | 2020-12-08 14:53 | CON ---
Date of Consultation: 12/08/2020 Brief Hpi: The patient is a 79-year-old female, patient of Dr. Nolasco who presents to the hospital w ith 1-day history of abdominal pain in the periumbilical area associated with 4 episodes of nausea, v omiting, decreased bowel function. She has not had similar episodes before in the past, but she has had a known hernia from previous exploration for possible inflammatory bowel disease in the past. Kendra aguirre now feels significant improvement since being in the hospital, however, she does not have complete resolution of her symptoms at this point. No sick contacts. No recent travel. No new food exposure s. Past Medical History: Significant for diabetes, hypertension, hyperlipidemia, hypothyroidism, TIA, a ngina, and she has oropharyngeal cancer, Lichen planus history. She is currently treated at [facility] for her oropharyngeal cancer. Past Surgical History: Includes C-sections as well as abdominal exploration for possible inflammator y bowel disease. Allergies: TO AMLODIPINE, CLONIDINE, CODEINE, DOXAZOSIN, EZETIMIBE, INDOMETHACIN. Home Medications: Include famotidine, isosorbide dinitrate, levothyroxine, Nitrostat, rosuvastatin. Review of Systems: A 10-point review of systems other than HPI. Social History: She denies smoking, alcohol, recreational drug use. Physical Examination: General: She is awake, alert, oriented. Psychiatric: She is appropriate, conversive. HEENT: She is normocephalic. Sclerae anicteric. Mucous membranes are moist. Oropharynx is clear. She has a partial tongue resection apparently. Neck: Supple without JVD. Chest: Normal expansion and excursion. Cardiovascular: Regular rate and rhythm. Pulmonary: Clear to auscultation bilaterally. Abdomen: Soft with a reducible large ventral periumbilical hernia. There is minimal tenderness to r eduction, however, there is no evidence of incarceration or strangulation. However, the hernia due t o its large size does recur quite rapidly, but no acute findings on examination. No skin changes as well. Her pelvis is stable. Extremities: No clubbing, cyanosis, edema. Skin: Warm and dry. Laboratory Data: Reveals white blood cell count 12.0, hemoglobin 15.7, hematocrit of 46.3, platelet count is 243, and neutrophils 83%. Her PT 10.7, INR 0.93. Her sodium 138, potassium 4.0, chloride 1 02, carbon dioxide 21, BUN 11, creatinine 1.05, glucose 178, magnesium 1.9, total bilirubin 0.6, dire ct bilirubin 0.1, AST 20, ALT 17, alk phos is 113. Her lipase is 101. She had a urinalysis which sh owed load of white blood cells in her urine as well as red blood cells, bacteria; 3+ protein; positiv e nitrite, all consistent with urinary tract infection. She had imaging performed as well, which inc luded a CT scan of the abdomen and pelvis. The official dictation says anterior abdominal hernia con taining short segment of mildly distended ascending colon within the hernia sac. The afferent and ef ferent portions of the colon at the neck of the hernia are decompressed. In addition, there is a sma ll free fluid within the hernia sac. Constellation of consultation findings suggest developing closed loop obstruction and also the appendix is not seen. Assessment And Plan: This is a 79-year-old female who comes in with a long-standing ventral abdomina l incisional hernia without obstructive components. 1.I have explained operative versus nonoperative management and as this is a reducible hernia, there is no need for urgent surgery at this point, so therefore I recommend starting a trial of clear liqu id diet and advancing as tolerated. If the patient is able to tolerate diet, she may be discharged a nd have her clearance with Dr. Arteaga and Dr. 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 However, I have stressed the need to co nsider surgical repair of this ventral abdominal hernia via laparoscopic approach. As such, the kyleigh ent and her agree with the above stated plan and would like to consider surgery as an outpati ent rather than as an inpatient unless otherwise required. As such, she will be admitted for IV flui d hydration, medical management per Dr. Arteaga and she can follow up with me as an outpatient should she improve and be deemed appropriate for discharge. JONATHAN/TRISTA Voice ID: [id number] Report ID: [id number]
[2020-12-08] MEDS: FAMOTIDINE 20 MG/2 ML VIAL IV SCH (20:54)
--- NOTE | 2020-12-08 21:56 | HP ---
Date of Admission: 12/08/2020 Chief Complaint: Abdominal pain, nausea, vomiting. History Of Present Illness: This is a 79-year-old pleasant female patient who has ventral abdominal wall hernia for long time, has been asymptomatic as far as her hernia is concerned, was doing fine in her normal usual state of health until yesterday she started to have abdominal pain in her mid abdom en. Her pain got worse around 4 p.m. yesterday and then subsequently started to have nausea, vomitin g. Denies any fever, chills. She had 2 bowel movements yesterday. She came into emergency room and after she was evaluated, she was diagnosed as having small bowel obstruction and I was contacted and the patient was admitted to the hospital. When I saw her, she was in the emergency room. Her husba nd was with her at bedside. Allergies: TO CODEINE CAUSING ITCHING, INDOMETHACIN CAUSING SHORTNESS OF BREATH, CLONIDINE, DOXAZOSI N CAUSING NAUSEA AND ZETIA CAUSING BACK PAIN. Medications: Aspirin 81 mg daily, famotidine 40 mg at bedtime, isosorbide mononitrate 30 mg daily, l evothyroxine 88 mcg daily, losartan 25 mg daily in morning, magnesium oxide 400 mg 2 times a day, met oprolol tartrate 50 mg 2 times a day, Nitrostat p.r.n. Review of Systems: GI: As mentioned above. All other systems reviewed and negative. Past Medical History: Significant for patient had COVID-19 infection on September 17, 2020. Her past medical history also significant for peripheral neuropathy, squamous cell carcinoma of tongue, melan tamiko of back, hypothyroidism, type 2 diabetes mellitus, hypertension, mixed hyperlipidemia, coronary a rtery disease, gastroesophageal reflux disease, chronic kidney disease, osteoarthritis, lichen planus , hypomagnesemia. Past Surgical History: Surgery for tongue cancer, hysterectomy, removal of melanoma and back surgery . Family History: Father had coronary artery disease. Mother also had coronary artery disease. Social History: Negative for smoking and alcohol use. Physical Examination: Vital Signs: When she first came in, blood pressure 182/100, pulse 77, respiratory rate 16, temperat ure 97.5, oxygen saturation 100%. Height is 5 feet 4 inches. Weight 73 kg. General: Awake, alert, oriented, not in distress. HEENT: Head atraumatic, normocephalic. Conjunctivae nonerythematous. Sclerae white. Mouth, no thr ush or edema noted. Ears/Nose, no mass, lesion, discharge noted. Neck: Supple. No JVD, lymph nodes, bruit, thyromegaly noted. Lungs: Bilateral good equal air entry. Clear to auscultation. No rhonchi. No rales. Heart: Normal heart sounds, no murmur or gallop. Abdomen: Abdomen shows a large need abdominal wall hernia with significant tenderness present over t his mid abdomen. Bowel sounds are hypoactive. No hepatosplenomegaly. No bruit. No rebound tendern ess. Extremities: No leg edema. No calf tenderness. Skin: No rash, ulcer, cellulitis. Lymphatics: No lymph node enlargement in neck, supraclavicular, infraclavicular region. Neuro: No focal neurological deficit. Chest: Unremarkable. External Genitalia: Deferred. Rectal: Deferred. Laboratory Data: White count 12, hemoglobin 15.7, platelets 243. Sodium 138, potassium 4, chloride 102, bicarb 21, BUN 11, creatinine 1.05, glucose 178. Liver function tests unremarkable. Lipase 101 . Urinalysis showed nitrite positive, leukocyte esterase 1+, blood 1+, protein 3+. ProBNP [address]. [address] x-ray, no acute cardiopulmonary changes. CAT scan of abdomen shows anterior abdominal wall hernia containing short segmental mildly distended ascending colon within the hernia sac. Impression: 1.Bowel obstruction. 2.Urinary tract infection. 3.Coronary artery disease. 4.Type 2 diabetes mellitus. 5.Hypothyroidism. 6.Hypertension. 7.Mixed hyperlipidemia. 8.Gastroesophageal reflux disease. 9.Hypomagnesemia. We will go ahead and admit the patient to hospital for further evaluation and management of this prob srikanth. The patient is appropriate for inpatient and is expected to spend 2 midnights in hospital. We will give her IV fluid, IV antibiotic will be started. Follow up on culture results. After I caity matute, general surgeon, Dr. Reno did come by to evaluate her for her bowel obstruction and after his evaluation, he was able to reduce this hernia at bedside and the patient started to feel better and Dr. Reno has informed me that the patient can start clear liquid diet and we can advance her d iet as she tolerates and at this point she does not need any surgical intervention. We will reevalua te her tomorrow morning. Details and plan of treatment discussed with the patient. RASHMI/TRISTA Voice ID: [id number]
[2020-12-08 23:14] VITALS: O2SAT 96
[2020-12-09] MEDS: METRONIDAZOLE 500mg IVPB 500 MG/100 ML BAG IV SCH (05:04)
[2020-12-09] MEDS ORDERED: CEFTRIAXONE/SWI 1gm 1 GM/10 ML SYR IV SCH (06:00)
[2020-12-09] MEDS: D5 0.9 NS 1,000 ML IV SCH (06:13)
[2020-12-09 06:26] LABS: Basophils % 0.8 % (0-1.3); Hematocrit 43.7 % (36.0-45.0); MPV 9.4 fL (7.6-11.3)
[2020-12-09 07:02] LABS: Albumin 3.6 g/dL (3.4-5.0); Bilirubin Direct 0.2 mg/dL (0-0.2); Bilirubin Total 0.7 mg/dL (0.2-1.0); Potassium 3.3 mmol/L (3.5-5.1)
[2020-12-09] MEDS: FAMOTIDINE 20 MG/2 ML VIAL IV SCH (09:02)
--- NOTE | 2020-12-09 09:33 | P.PN ---
Subjective Date of Service: 12/09/20 Subjective: Improving (Patient tolerated clears well, passing gas, no pain, minimal residual soreness of muscles, no nausea or emesis) Physical Examination - Vital Signs Temperature: 97.2 F Blood Pressure: 138/60 Pulse: 64 Respirations: 16 Pulse Ox (%): 98 - Physical Exam General: Alert, In no apparent distress, Cooperative Respiratory: Normal air movement Cardiovascular: Regular rate/rhythm Gastrointestinal: Soft and benign, Other (soft, NT, ND, ventral hernia - soft, reducible but recurrs, no peritonitis) Assessment And Plan - Current Problems (Diagnosis) (1) Ventral hernia with obstruction, without gangrene Current Visit: Yes Status: Acute Plan: 79 year old woman with a reducible ventral incisional hernia now without issues - advance diet, if tolerated may DC home today from surgical standpoint - will follow up for surgical planning as outpatient - continue management per Dr. Arteaga
[2020-12-09 14:29] VITALS: BP 145/70; TEMP 97.6
--- NOTE | 2020-12-10 10:28 | DS ---
Date of Discharge: 12/09/2020 Disposition: Discharged to go home. Physical Examination: HEENT: Unremarkable. Lungs: Clear to auscultation. Heart: Sounds normal. Abdomen: Soft. Bowel sounds normal. No guarding, rigidity, tenderness, or distention. Mid abdomen has abdominal wall ventral hernia, but no evidence of tenderness and it is soft, nontender. Extremities: No leg edema. Laboratory Data: Yesterday; white count 12, hemoglobin 15.7, platelets 243. Today; white count 7, h emoglobin 14.4, platelets 226. Yesterday; sodium 138, potassium 4, chloride 102, bicarb 21, BUN 11, creatinine 1.05, glucose 178. Liver function tests unremarkable. Troponin less than 0.02. Lipase 1 01. Today; sodium 143, potassium 3.3, chloride 108, bicarb 26, BUN 10, creatinine 1, glucose 122. L iver function tests unremarkable. Lipase 80. Urine culture negative. COVID-19 test negative. CAT scan of the abdomen had showed evidence of bowel obstruction with a ventral abdominal wall hernia. Discharge Medications And Instructions: 1.Continue all prior home medications. 2.Diet; GI soft diet. 3.Follow up at my office next week on 12/13/2020 at 9 a.m. Hospital Course: A 79-year-old pleasant female patient, admitted to the hospital with abdominal pain , nausea, vomiting. Please see dictated H and P for more information. After the patient was evaluat ed in the emergency room, she was admitted to the hospital. Dr. Reno from General Surgery was con sulted. He was able to reduce this abdominal wall hernia at bedside yesterday in the emergency room and her pain improved immediately after that. Dr. Reno started her on clear liquid diet yesterday and today he advanced it to soft diet. After the patient tolerated soft diet at lunchtime, our plan is to discharge her to go home as she does not need any surgical intervention and Dr. Reno has re leased her to go home from his point of view. Medically, she is stable for discharge. Her urinalysi s was abnormal, but urine culture has not grown any bacteria. She was started on empiric antibiotic yesterday, but there is no need to continue antibiotics on outpatient basis. Today, she is feeling m uch better. No more abdominal pain. No nausea. No vomiting. I have advised her to continue GI sof t diet on outpatient basis at least for a while and then slowly she can advance her diet. Final Diagnoses: 1.Bowel obstruction, resolved. 2.Hypokalemia. 3.Coronary artery disease. 4.Type 2 diabetes mellitus. 5.Hypothyroidism. 6.Hypertension. 7.Mixed hyperlipidemia. 8.Gastroesophageal reflux disease. 9.Hypomagnesemia. RASHMI/MODL Voice ID: [id number] Report ID: [id number]
== END 2020-12-09 14:16 | disposition home or self-care (01) ==
LOC: ER 04:19 → ERHOLD 06:19 → INTOOBSV 06:19 → 2ND 13:16
PROVIDERS: ADMIT Internal Medicine; ATTEND Internal Medicine
DX: K43.6 Other and unspecified ventral hernia with obstruction, without gangrene (principal); Z85.820 Personal history of malignant melanoma of skin; Z86.16 Personal history of COVID-19; E87.6 Hypokalemia; C02.9 Malignant neoplasm of tongue, unspecified; Z20.822 Contact with and (suspected) exposure to COVID-19; I25.10 Atherosclerotic heart disease of native coronary artery without angina pectoris; E03.9 Hypothyroidism, unspecified; E78.2 Mixed hyperlipidemia; K21.9 Gastro-esophageal reflux disease without esophagitis; E83.42 Hypomagnesemia; E11.42 Type 2 diabetes mellitus with diabetic polyneuropathy; I12.9 Hypertensive chronic kidney disease with stage 1 through stage 4 chronic kidney disease, or unspecified chronic kidney disease; N18.9 Chronic kidney disease, unspecified; E11.22 Type 2 diabetes mellitus with diabetic chronic kidney disease; M19.90 Unspecified osteoarthritis, unspecified site; L43.9 Lichen planus, unspecified; N39.0 Urinary tract infection, site not specified; Z86.73 Personal history of transient ischemic attack (TIA), and cerebral infarction without residual deficits; R94.31 Abnormal electrocardiogram [ECG] [EKG]
CPT/HCPCS: 96365; 93005; 87088; 85025 ×2; 87086; 80048 ×2; 36415 ×2; 83735; 85610; 80076 ×2; 84484; 83690 ×2; 83880; 74177; 71045; 96375; 99285; U0003; Q9967; J0696 ×2; J7042 ×2; 81003; 81015; C9113

== ENCOUNTER 2020-12-20 07:07 | Observation (INO) | payer OTHER ==
[2020-12-20] MEDS ORDERED: propofoL 200 MG/20 ML VIAL IV ONE (07:45)
[2020-12-20] MEDS ORDERED: FENTANYL CITR 100 MCG/2 ML ONE (07:46)
[2020-12-20 07:47] LABS: Absolute Lymphocytes (CBC) 2.7 K/uL (0.7-4.9); Basophils % 1.1 % (0-1.3); Hematocrit 41.1 % (36.0-45.0); Lymphocytes % 32.1 % (15.3-44.8); MPV 9.4 fL (7.6-11.3); RBC Red Blood Cell Count 4.41 M/uL (3.86-4.86)
[2020-12-20] MEDS ORDERED: LIDOCAINE 2% MPF 5 ML VIAL ONE (07:47)
[2020-12-20] MEDS ORDERED: dexAMETHasone 10 MG/ML VIAL ONE (07:47)
[2020-12-20] MEDS ORDERED: ROCURONIUM 50 MG/5 ML VIAL IV ONE (07:47)
[2020-12-20] MEDS ORDERED: ONDANSETRON 4 MG/2 ML VIAL ONE (07:47)
[2020-12-20] MEDS ORDERED: MIDAZOLAM HCL 2 MG/2 ML INJ ONE (07:47)
[2020-12-20] MEDS ORDERED: CEFAZOLIN/SWI 1gm 1 GM/10 ML SYR ONE (07:54)
[2020-12-20] MEDS ORDERED: Ringers Lactate 0 ML IV ONE (07:54)
[2020-12-20] MEDS ORDERED: Ringers Lactate 1,000 ML IV ONE ×2 (08:11→11:44)
[2020-12-20] MEDS ORDERED: NA CHLORIDE 0.9% 1,000 ML ONE (08:15)
--- NOTE | 2020-12-20 08:21 | RAD REPORT ---
EXAM DESCRIPTION: RAD - Chest Pa And Lat (2 Views) - 12/20/2020 7:47 am CLINICAL HISTORY: STAT, SAME DAY SURGERY, BED 2 Chest pain. COMPARISON: Chest Single View dated 12/08/2020; Chest Single View dated 07/05/2019; Chest Single View dated 05/25/2018; Chest Single View dated 05/21/2018 FINDINGS: The lungs are clear. The heart is upper limit of normal in size. No displaced fractures. IMPRESSION: No acute or concerning finding suspected.
[2020-12-20] MEDS ORDERED: GLYCOPYRROLATE 0.2 MG/ML SYR ONE ×2 (09:52→10:38)
[2020-12-20] MEDS ORDERED: NEOSTIGMINE 1 MG/ML -5 ML ONE (10:38)
[2020-12-20] MEDS ORDERED: KETOROLAC 30 MG/ML INJ ONE (10:38)
[2020-12-20] MEDS ORDERED: SODIUM CHLORIDE 0.9% 10ML INJ IV PRN (10:38)
[2020-12-20] MEDS ORDERED: MEPERIDINE HCL 50 MG/ML IV PRN (10:38)
[2020-12-20] MEDS ORDERED: TRAMADOL 37.5mg/APAP 325mg PER TAB PO PRN (10:38)
[2020-12-20] MEDS ORDERED: ONDANSETRON 4 MG/2 ML VIAL IV PRN (10:38)
[2020-12-20] MEDS ORDERED: MORPHINE 10 MG/ML VIAL ONE (10:47)
--- NOTE | 2020-12-20 10:49 | P.BOP ---
Preoperative diagnosis: bowel obsctruction, large incisional incarcerated ventral hernia Postoperative diagnosis: same plus intraabdominal adhesions Primary procedure: Laparoscopic repair large incisional incarcerated ventral hernia with mesh Secondary procedure: Laparoscopic lysis of adhesions Electronic Masking System Operator: JAYDEN RILEY (OIL PIT ATTENDANT) Estimated blood loss: <75 cc Specimen: hernia sac Findings: incarcerated large bowel , extensive intrabdominal adhesions Anesthesia: General Complications: None Transferred to: Recovery Room Condition: Good
--- OUTSIDE RECORDS SUMMARY | 2020-12-20 11:30 | XMS REPORT | Continuity of Care Document ---
:1940 Author Organization [facility] t Address [address] [place] [address] Dr. [address] [place] [address] Care Team Providers Name Role Phone Lexii TOMAS Primary Care Physician Unavailable Sanchez NAVARRO Attending Clinician Bobby BARRAZA Attending Clinician Lexii Tomas MD Attending Clinician SANCHEZ Attending Clinician Unavailable Lexii TOMAS Attending Clinician Unavailable Martha WILL, B Attending Clinician Nori Millan Attending Clinician Payers Payer Name Policy Type Policy Effective Date Expiration Date Sour ce Number AETNA MEDICAREAETNA [id number] 2013 MD Harleen gama MEDICARE 00:00:00 [id number] -PresentMedicare Problems Condition Condition Condition Status Onset [...] op Disease Active Overview: cardiovasc cardiovasc 2-20 Jeannettetin Jose chand 00:00: g of this n examinatio examinatio 00 note n n might be different from the original. Follows with Dr Alejandro # . Last seen while hospitali zed for [...] vertebral arteriesL ast Assessmen t & Plan: Formattin g of this note might be different from the original. 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 Added automatic ally from request for surgery [id number] Tonsil Tonsil Disease Active carcinoma carcinoma 2-08 Marcell rso 00:00: n 00 Atheroscle Atheroscle Disease Active M Demetris rotic rotic 2-27 Anderso heart heart 00:00: n disease of disease of 00 [place] coronary coronary artery artery with with angina angina pectoris pectoris Squamous Squamous Disease Active Overview: cell cell 2-13 Formattin Andestrellita carcinoma carcinoma 00:00: g of this n of tongue of tongue 00 note might be different from the original. Added automatic ally from request for surgery [id number] Personal Personal Disease Active 2015-07 history of history of 1-14 An derso melanoma melanoma 00:00: n of skin of skin 00 Oral Oral Disease Active lichen lichen 7-16 Anderso planus planus 00:00: n 00 Lichen Lichen Disease Active planus planus Andantoinetteo n Leukoplaki Leukoplaki Disease Active M D [...] Atrial Atrial Disease Active Overview: fibrillati fibrillati Jessee Garcia on on g of this n note might be different from the original. H/o PAF during both episodes of urosepsis , resolved. Personal [...] Start Date Stop Date Quantity Comments Source Tobacco use and 2020-04-18 2020-04-18 Never used [facility] on exposure 00:00:00 00:00:00 Alcohol intake 2020-04-18 2020-04-18 Current MD Jose rich 00:00:00 00:00:00 non-drinker of alcohol (finding) Sex Ass[birth year] At [birth year] F [facility] on 00:00:00 00:00:00 Smoking Status Start Date Stop Date Source Never smoker [facility] Medications Ordered Filled Start Stop Current Ordering Indication Dosage Frequency Signature Comments Components Source Medication Medication Date Date Medication? Clinician (SIG) Name Name rosuvastati 2019-07 Yes 10mg Take 10 mg MD rich (CRESTOR) 0 by mouth Marcell rso 10 mg 05:16: at n tablet 50 bedtime. aspirin 81 2019-07 Yes 81mg Take 81 mg M D mg EC 0-29 by mouth Anderso tablet 05:16: daily. n 50 UNABLE TO 2019-07 Yes 1{capsu Take 1 MD FIND 0- le} capsule by Andersagnieszka 05:16: mouth n 50 daily. Med Name: Vision Alive MAX dexamethaso Yes Oral lichen 1mg Take 10 mL MD doran 04-18 planus (1 mg) by Jose (DECADRON) 00:00: mouth n 0.5 mg/5 mL 00 twice solution daily. Swish and spit. May discontinu e once flare-up subsides. May resume if irritation returns. triamcinolo 2020- No Oral lichen by MD doran 04-18 10-07 planus periodonta Art o (Oralone) 00:00: 04:59 l route at n 0.1% paste 00 :00 bedtime for 7 days. atorvastati Yes TK 1 T PO M D n (LIPITOR) 9-23 D HS Anderso 10 mg 00:00: n tablet 00 losartan Yes TK 1 T PO MD (COZAAR) 25 9-23 D IN THE Marcell rso mg tablet 00:00: MORNING n 00 isosorbide 2019-0 Yes TK 1 T PO MD mononitrate 5-23 D Anderso (IMDUR) 30 00:00: n mg 24 hr 00 tablet dexamethaso Yes Oral lichen 1mg Take 10 mL MD ne 5-19 planus (1 mg) by Anderso [...] Procedure Date / Time Performed Performing Clinician Sour e CT SOFT TISSUE NECK W CONTRAST [...] ID 2020-03-14 2020-03-14 Outpatient DAPHNE BRADFORD [facility]NA[facility]LL HUNG [id number] 00:00:00 00:00:00 NARESH rich 2020-03-14 2020-03-14 Outpatient DAPHNE BRADFORD [facility]LL HUNG [id number] 00:00:00 00:00:00 NARESH rich 2020-03-14 2020-03-14 Outpatient DAPHNE TOMAS A[facility]LL HUNG [id number] 00:00:00 00:00:00 , LUIS MIGUEL rich Results [...] . Lab Interpretation (test code Abnormal = 38666-5) MD [id number] 14:02:29 Test Item Value Reference Range Interpretation Comments BUN (test code = 5055) 15 mg/dL 6-23 MD [facility]ell.Serum [id number] 14:02:28 Test Item Value Reference Range Interpretation Comments Creatinine (test code = 5399) 1.03 mg/dL 0.51-0.95 H Lab Interpretation (test code = Abnormal 79213-4) MD CrowellCT Soft Tissue Neck with [id number] 13:35:22 1. Stable treatment related changes without any evidence of local tumor recurrence within the oralcavity or the oropharynx. 2. No evidence of new cervical adenopathy to suggest lolly disease recurrence in the neck. Occasional fire hydrant mechanic errors may have occurred due to the inherent limitations of voice recognition software, and incorrect words/phrases may have been missed during proofreading. Please interpret using context where substitutions have occurred. 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 Hypoattenuating nodules are reidentified within the thyroid gland. Atherosclerotic ossification is present at bilateral common carotid artery bifurcations resulting in mild narrowing of the right ICA origin.The visualized orbits and brain parenchyma do not reveal any focal lesions. Trace mucosal thickening is noted within the right maxillary sinus.The partially imaged lung apices are without any dominant masses.IMPRESSION:1. Stable treatment related changes without any evidence of local tumor recurrence within the oral cavity or theoropharynx.2. No evidence of new cervical adenopathy to suggest lolly disease recurrence in the neck .Occasional fire hydrant mechanic errors may have occurred due to the inherent limitations of voice recognition software, and incorrect words/phrases may have been missed during proofreading. Please interpret using context where substitutions have occurred.[facility] [id number] 12:41:02 Test Item Value Reference Range Interpretation Comments POC Crea (test code 1.0 mg/dL 0.6-1.3 Medicati ons, especially = 76587-6) hydroxyurea or supplements, hunt ch as ascorbate, can interfere with test resul ts causing a falsely and significantlyhi gher result than exp ected. If a problem is hunt spected with a patient' s result, a sample should be sent to the laborato for confirmatory te sting. Method descript ion: [...] Normal eGF R >= 60 code = 98311-9) mL/min/1.73 m2 The eGFR is calculated u sing the CKD-EPI equatio n. The eGFR declines w ith age. eGFR <60 mL/min /1.73 m2 is considered a s "decreased" Thi s equation should only be used for patients 18 and older. According to e [employer]'s Kidney Disease [...] Normal eG FR >= 60 code = 65032-8) mL/min/1.73 m2 The eGFR is calculated u [...] 6672) Lab Interpretation Abnormal (test code = 39998-2) MD [facility]
[2020-12-20] MEDS: MEPERIDINE HCL 25 MG/ML SYR ONE ×2 (11:53→11:58)
--- NOTE | 2020-12-20 11:54 | EKG ---
Test Date: 2020-12-20 Test Time: 06:34:22 Corn Sheller: TG MEASUREMENT RESULTS: Intervals: Rate: 55 VA: 168 QRSD: 94 QT: 442 QTc: 422 [place]: P: 26 VA: 168 QRS: 2 T: 36 INTERPRETIVE STATEMENTS: Sinus bradycardia Possible Anterior infarct, age undetermined Abnormal ECG Compared to ECG 12/08/2020 04:25:43 Myocardial infarct finding now present Sinus rhythm no longer present ST (T wave) deviation no longer present Electronically Signed On 12-20-20 11:53:29 CDT by Jb Alejandro
[2020-12-20] MEDS ORDERED: HYDROMORPHONE HCL 1 MG/ML INJ ONE (12:38)
[2020-12-20 13:14] VITALS: BMI 26.1
[2020-12-20] MEDS: NA CHLORIDE 0.9% 1,000 ML IV SCH (13:32)
--- NOTE | 2020-12-20 18:56 | OP ---
Date of Procedure: 12/20/2020 Surgeon: Rosendo Scanlon MD Healthcare Educator: Tracy Jewell. Preoperative Diagnoses: Bowel obstruction, large incisional incarcerated ventral hernia, abdominal p ain. Postoperative Diagnosis: Bowel obstruction, large incisional incarcerated ventral hernia, abdominal pain plus intraabdominal adhesions. Procedures: Laparoscopic repair of large incisional incarcerated ventral hernia with mesh, laparosco pic lysis of adhesions. Estimated Blood Loss: Less than 75 mL. Findings: The patient has large bowel including much of the ascending colon, even the appendix on th e incarcerated incisional hernia. Anesthesia: General plus local. Indications: This is the case of a female, who comes to us with a large abdominal hernia. Benefits, alternatives, and risks of repair were fully explained. The patient came to the ER recently, diagno sed with bowel obstruction, also eventually sent home, the patient still has some symptoms, so she de cided to present to my office for repair. The benefits, alternatives, and risks of laparoscopic repa ir of incisional incarcerated ventral hernia with mesh fully explained to the patient, which include, but not limited to infection, bleeding, damage to adjacent structures, anesthesia complication, recu rrence, PR, and even . She also understands this may not relieve any symptoms. She might need more than one surgical intervention. She understood also that we may be using mesh in that area. Me sh pros and cons fully explained. She did consent for the surgery and the use of mesh. Procedure In Detail: The patient was brought to the operating room, placed in supine position. Anes thesia was done without complication. Abdominal area was prepped and draped in usual sterile fashion . We proceeded to make an incision in the midline. This incision allowed me to visualize the area o f intestines since there has a lot of large bowel incarcerated. We noticed the incision to be viable after we opened the hernia sac. We have to extend the incision to be able to carefully inspect the intestines and reduce back into the abdominal cavity. We have a large amount of adhesions present th at have to be resected with the help of a LigaSure and also with the help of scissors. Once we have this large amount of ascending colon present and even the appendix was thereby looking to be normal a nd also large, the omentum was reduced back in the abdominal cavity. We cleaned the fascial edges. We are going to continue the case laparoscopically since we would like to put a mesh underneath and c ontinue with lysis of adhesions. A #1 Prolene was used to close most of the incision at least approx imately incision in a figure-eight fashion without tying them so we can eventually put the mesh insid e. We tied some of them at least enough to be able to obtain pneumoperitoneum after we put a Cody trocar there. Once we had a Cody trocar, we placed 5 mm trocar x3 under direct visualization. We removed Cody trocar and put at least 15 cm oval mesh in that region to overlap the area about 3-5 c m. That balloon was inflated and lysis began against the anterior abdominal wall. This was done aft er doing some adhesions removal with the help of LigaSure. No enterotomies seen or no bleeding. Onc e we inflated the mesh, we proceeded to secure in place with CapSure fixation device. The balloon wa s deflated and then removed, and then we continued fixating the mesh to make sure there was no bowel in between, and all the edges and surrounding areas were secured in place. At that moment, I proceed ed then to inspect the area of the lysis of adhesions and looks intact. The area of the hernia was o verlapped like I mentioned before. So, we deflated the area under direct visualization and then afte r that, tied these sutures on the incision site. Then, since there was a large cavity between the fa scia and the skin, we proceeded to secure that and trying to remove some of the skin and also to obli terate the space to diminish the chance of seroma. Then, the skin was approximated with tadeo. Sp onge count and instrument counts correct. The patient tolerated the procedure well. The patient was sent to recovery in stable condition. This patient's intestines were previously obstructed, so we a re going to keep the patient in observation. We are going to give her pain medications and also tryi ng to wait for her ileus to resolve that we expect. Sponge count and instrument counts correct. TESSY/TRISTA Voice ID: [id number] Report ID: [id number]
[2020-12-21] MEDS: NA CHLORIDE 0.9% 1,000 ML IV SCH ×2 (02:17→12:00)
[2020-12-21 04:50] VITALS: O2SAT 97
[2020-12-21 05:59] LABS: Absolute Lymphocytes (CBC) 1.4 K/uL (0.7-4.9); Basophils % 0.5 % (0-1.3); Hematocrit 38.3 % (36.0-45.0); Lymphocytes % 10.9 % (15.3-44.8); RBC Red Blood Cell Count 4.17 M/uL (3.86-4.86)
[2020-12-21] MEDS ORDERED: METOPROLOL TAR 25 MG TAB PO SCH (06:00)
[2020-12-21 08:38] VITALS: BP 157/68; TEMP 97.2
[2020-12-21] MEDS ORDERED: ISOSORBIDE MONO SR 30 MG TAB PO SCH (09:00)
[2020-12-21] MEDS ORDERED: PANTOPRAZOLE 40 MG INJ IVP SCH (09:00)
--- NOTE | 2020-12-21 19:26 | DS ---
Date of Discharge: 12/21/2020 Diagnoses: Bowel obstruction, incarcerated ventral hernia status post repair with mesh placement, an d lysis of adhesions. Hospital Course: The patient stayed overnight for pain control. Right now, she believes she is able to handle this with medication by mouth, so we are going to send her home. She is tolerating diet, so the patient will be discharged home. Follow up in my office in 1 week. Keep dressings intact. N o heavy lifting. Ambulation. TESSY/MODPorsche Voice ID: [id number] Report ID: [id number]
--- NOTE | 2020-12-22 13:55 | CON ---
Date of Consultation: 12/21/2020 Reason For Consultation: Medical management. History Of Present Illness: A 80-year-old pleasant female patient who had surgery done by Dr. Scanlon for abdominal wall hernia and postoperatively, she was admitted to the hospital after surgery and medical consultation was requested for medical management. When I saw her this morning, she was feeling better. She has some pain from recent surgery, but no nausea, no vomiting. Denies any chest pain, shortness of breath. No fever. No urinary complaints. Allergies: TO CODEINE CAUSING ITCHING. INDOMETHACIN CAUSING SHORTNESS OF BREATH. CLONIDINE AND DOXAZOSIN CAUSING NAUSEA AND ZETIA CAUSING BACK PAIN. Medications: At home she takes aspirin 81 mg daily, famotidine 40 mg at bedtime, isosorbide mononitrate 30 mg daily, levothyroxine 88 mcg daily, losartan 25 mg daily in morning, magnesium oxide 400 mg 2 times a day, metoprolol tartrate 50 mg 2 times a day and Nitrostat p.r.n. Review of Systems: GI: As mentioned above All other systems reviewed and negative. Past Medical History: Significant for COVID-19 infection in September 17, 2020, peripheral neuropathy, squamous cell carcinoma of tongue, melanoma of back, hypothyroidism, type 2 diabetes mellitus, hypertension, mixed hyperlipidemia, coronary artery disease, gastroesophageal reflux disease, chronic kidney disease, osteoarthritis at multiple sites, Lichen planus, hypomagnesemia. Past Surgical History: Significant for surgery for tongue cancer, hysterectomy, removal of melanoma and back surgery. Family History: Father had coronary artery disease. Mother also had coronary artery disease. Social History: Negative for smoking and alcohol use. Physical Examination: Vital Signs: Temperature 97, pulse 58, respiratory rate 16, blood pressure 159/58, oxygen saturation 97%. Height 5 feet 4 inches, weight 152 pounds. General: Awake, alert, oriented, not in distress. HEENT: Head atraumatic, normocephalic. Conjunctivae nonerythematous. Sclerae white. Mouth, no thrush or edema noted. Ears/Nose, no mass, lesion, discharge noted. Neck: Supple. No JVD, lymph nodes, bruit, thyromegaly noted. Lungs: Bilateral good equal air entry. Clear to auscultation. No rhonchi. No rales. Heart: Normal heart sounds, no murmur or gallop. Abdomen: Abdominal exam shows presence of abdominal binder from recent surgery. Abdomen is soft. Bowel sounds are normal. No hepatosplenomegaly. No bruit. No guarding. No rigidity. Extremities: No leg edema. No calf tenderness. Skin: No rash, ulcer, cellulitis. Lymphatics: No lymph node enlargement in neck, supraclavicular, infraclavicular region. Neuro: No focal neurological deficit. Chest: Unremarkable. External Genitalia: Deferred. Rectal: Deferred. Laboratory Data: Today, white count 12.7, hemoglobin 12.3, platelets 206. Yesterday, white count 8.3, hemoglobin 13.2, platelets 253. Today chemistry; sodium 142, potassium 4, chloride 112, bicarb 22, BUN 12, creatinine 0.81, glucose 122. Yesterday, sodium 142, potassium 4, chloride 110, bicarb 26, BUN 9, creatinine 0.94, and glucose 100. Impression: 1. Hypertension. 2. Type 2 diabetes mellitus. 3. Coronary artery disease. 4. Mixed hyperlipidemia. 5. Hypothyroidism. 6. Osteoarthritis on multiple sites. 7. Gastroesophageal reflux disease. 8. Hypomagnesemia. Plan: The patient is medically stable postoperatively. She is on clear liquid diet. We will go ahead and continue her isosorbide and metoprolol as per order. There is no evidence of any medical complications at this point. She is doing fine, recovering well from her recent surgery and I expect her to continue to improve. I have advised her that she should continue her home medications upon discharge from the hospital including her aspirin and she was advised to ask Dr. Scanlon if she can start her Aspirin upon discharge and at what time she can start it, whether it can be restarted today or tomorrow and she will resume that. She will resume all her other usual home medications as she was taking prior to this admission. She will continue to follow up with me as outpatient as per her scheduled appointment and she will continue to follow with Dr. Scanlon for this postoperative followup. Thank you very much for allowing me to participate in her care. RASHMI/MODL Voice ID: [id number] Report ID: [id number] WILSON
== END 2020-12-21 13:50 | disposition home or self-care (01) ==
LOC: OR 07:07 → 4TH 11:27
PROVIDERS: ADMIT Surgery; ATTEND Surgery
PROC: 0WUF4JZ Supplement Abdominal Wall with Synthetic Substitute, Percutaneous Endoscopic Approach (ICD-10-PCS; principal; 2020-12-20 08:45)
DX: K43.0 Incisional hernia with obstruction, without gangrene (principal); Z20.822 Contact with and (suspected) exposure to COVID-19; K21.9 Gastro-esophageal reflux disease without esophagitis; E78.00 Pure hypercholesterolemia, unspecified; M81.0 Age-related osteoporosis without current pathological fracture; E03.9 Hypothyroidism, unspecified; Z85.810 Personal history of malignant neoplasm of tongue; Z85.820 Personal history of malignant melanoma of skin; E11.42 Type 2 diabetes mellitus with diabetic polyneuropathy; I25.10 Atherosclerotic heart disease of native coronary artery without angina pectoris; I12.9 Hypertensive chronic kidney disease with stage 1 through stage 4 chronic kidney disease, or unspecified chronic kidney disease; N18.9 Chronic kidney disease, unspecified; E11.22 Type 2 diabetes mellitus with diabetic chronic kidney disease; E78.2 Mixed hyperlipidemia; E83.42 Hypomagnesemia; M15.9 Polyosteoarthritis, unspecified
CPT/HCPCS: 36415; 71046; 80048; 85025; 88302; 93005; 94010; C9113; J0690; J1100; J1170; J2175; J2250; J2405; J2704; J2710; J3010; J7030; J7120; U0003

== ENCOUNTER 2021-12-10 04:15 | Inpatient (IN) | payer OTHER ==
--- OUTSIDE RECORDS SUMMARY | 2021-12-10 04:19 | XMS REPORT | Clinical Summary ---
:1940 Author Organization [facility] MD [facility] Address [address] [place] [address] Care Team Providers Name Role Phone Lexii Ly MD Primary Care Provider LINDY Bloom Unavailable Unavailable MD Jeremy Unavailable Allergies Active Allergy Reactions Severity Noted Date Comments Amlodipine Other (See Comments) 05/01/2015 Leg anna ma Clonidine Other (See Comments), GI 05/01/2015 Claude sea, Chest Intolerance tightness, fati yan Codeine Itching 05/01/2015 Doxazosin Other (See Comments), GI 05/01/2015 Claude sea Intolerance Indomethacin Shortness Of Breath High 05/01/2015 Ezetimibe Other (See Comments) 05/01/2015 Back pa in Medications Medication Sig Dispensed Refills Start Date End Date Status magnesium oxide (MAOX) Take 400 mg by 0 01/31/2015 Active 400 mg tablet mouth daily. nitroglycerin Take 0.4 mg by 0 01/31/2015 Active (NITROSTAT) 0.4 mg SL mouth as needed tablet for chest pain. Call 911 if no relief after 3 doses levothyroxine Take 1 tablet by 3 05/13/2017 Active (SYNTHROID, LEVOTHROID) mouth daily. 75 mcg tablet metoprolol tartrate Take 50 mg by 3 01/28/2019 Active (LOPRESSOR) 50 mg mouth twice tablet daily. famotidine (PEPCID) 40 Take 40 mg by 0 Active mg tablet mouth at bedtime. acetaminophen 325 mg Take 1 capsule 0 Active cap by mouth as needed. gabapentin (Neurontin) Take 1 capsule 90 capsule 1 05/10/2021 Active 300 mg (300 mg) by capsuleIndications: mouth 3 (three) Squamous cell carcinoma times a day. of tongue Additional Information Patient not taking. Reason: No longer taking, Informant: Self, Reported on 08/13/2021 nystatin (MYCOSTATIN) 100,000 Swish and swallow 5 225 mL 0 05/15/2021 Active units/mL suspensionIndications: mL (500,000 Units) 3 Squamous cell carcinoma of tongue (three) times a day. Additional Information Patient not taking. Reason: No longer taking, Reported on 10/22/2021 lidocaine (lidocaine) 20 mg/mL Swish and swallow 10 mL 200 mL 3 05/17/2021 Active (2%) viscous solutionIndications: every 4 (four) hours as Squamous cell carcinoma of tongue needed (oral mucositis). Additional Information Patient not taking. Reason: No longer taking, Informant: Self, Reported on 08/13/2021 aspirin 81 mg EC tablet Take 81 mg by mouth 0 Active daily. isosorbide mononitrate Take 30 mg by mouth 0 021 Active (IMDUR) 30 mg 24 hr tablet daily. traMADol (Ultram) 50 mg Take 1 tablet (50 mg) by 15 tablet 0 0 11/10/2021 Active tabletIndications: Metastasis mouth every 8 (eight) to head and neck lymph node hours as needed for severe pain. Additional Information Patient not taking. Reason: No longer taking, Informant: Self, Reported on 11/26/2021 rosuvastatin TAKE 1 TABLET BY 0 11/02/2021 Active (CRESTOR) 5 mg MOUTH TWO TIMES A tablet WEEK RANEXA 500 mg 12 hr Take 1 tablet by 6 06/26/2018/ Discontinued tablet mouth twice daily. 2020 ( Discontinued by another cl inician) omeprazole Take 1 capsule by 0 06/25/201802/06/ Discontinued (PriLOSEC) 40 MG mouth daily. 2020 (Discontinued by capsule another cl inician) rosuvastatin Take 5 mg by mouth 0 05/08/ Discontinued (CRESTOR) 5 mg 2 (two) times a 2020 (Therapy tablet week MTH. completed) aspirin 81 mg EC Take 81 mg by 0 05/08/ Discontinued tablet mouth daily. 2020 (Therap y completed) hydrALAZINE Take 1 tablet by 3 04/25/201902/06/ Discontinued (APRESOLINE) 10 mg mouth twice daily. 20 (Discontinued by tablet another cl inician) dexamethasone Take 10 mL (1 mg) 480 mL 1 12/07/201902/14/ Discontinued (Not (DECADRON) 0.5 mg/5 by mouth twice 2020 Applicable) mL daily. Swish and solutionIndications: spit. May Squamous cell discontinue once carcinoma of tongue, flare-up subsides. Oral lichen planus May resume if irritation returns. atorvastatin TK 1 T PO D HS 0 04/12/202002/06/ D iscontinued (LIPITOR) 10 mg 2020 (Dis continued by tablet another cl inician) isosorbide TK 1 T PO D 0 12/11/201905/08/ Discon tinued mononitrate (IMDUR) 2020 (Therapy 30 mg 24 hr tablet c ompleted) losartan (COZAAR) 25 TK 1 T PO D IN THE 0 04/12/202002/14/ Discontinued mg tablet MORNING 2020 (Discontin ued by another cl inician) UNABLE TO FIND Take 1 capsule by 0 02/06/ Discontinued mouth daily. Med 2020 (D iscontinued by Name: [facility] clinician) MAX dexamethasone Take 10 mL (1 mg) 480 mL 1 04/18/202002/14/ Discontinued (Not (DECADRON) 0.5 mg/5 by mouth twice 2020 Applicable) mL daily. Swish and solutionIndications: spit. May Squamous cell discontinue once carcinoma of tongue, flare-up subsides. Oral lichen planus May resume if irritation returns. HYDROcodone-acetamin Take 1 tablet by 30 tablet 0 02/06/2021 0 02/14/ Discontinued (Not ophen (Hadley) 7.5 mouth every 6 2020 Applicable) mg-325 mg per (six) hours as tabletIndications: needed for Squamous cell moderate pain or carcinoma of palate severe pain (pain). traMADol (Ultram) 50 Take 1 tablet (50 30 tablet 0 02/16/202111/10/ Discontinued mg mg) by mouth every 2021 tabletIndications: 6 (six) hours as Squamous cell needed for carcinoma of tongue moderate pain. amoxicillin-clavulan Take 1 tablet (875 24 tablet 1 03/22/202111/10/ Discontinued (Stop ate (AUGMENTIN) 875 mg) by mouth twice 2 022 Taking at mg-125 mg per daily. Discha rge) tabletIndications: Primary squamous cell carcinoma of palatine tonsil chlorhexidine Swish and spit 15 900 mL 03/22/2021 (PERIDEX) 0.12% mL twice daily for 2020 solutionIndications: 30 days. Primary squamous cell carcinoma of palatine tonsil Additional Information Patient not taking. Reason: No longer taking, Reported on 04/06/2021 lidocaine (lidocaine) 20 Swish and 200 mL 3 05/10/202104/21 Discontinued mg/mL (2%) viscous swallow 10 mL solutionIndications: every 4 (four) Squamous cell carcinoma hours as needed of tongue (oral mucositis). amoxicillin-clavulanate Take 1 tablet 14 tablet 0 11/06/2021 0 11/13/2021 (Augmentin) 875 mg-125 (875 mg) by mg per mouth twice tabletIndications: daily for 7 Squamous cell carcinoma days. 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 Not stageable. If not recurre nt would be N1 Pre op cardiovascular examination 09/09/2018 Overview: Follows with Dr Alejandro # [phone]. Last seen while hospitalized for urosepsis and 1-2 weeks after discharge. In scanned documents- [facility] 06/2016 RCA:ok, PDA: 60%, LM ok, CFX : prox 50%, LAD prox 70%- placed on medical therapy Emmanuel [facility] 06/2015 normal myocardial perfu dru images, EF 72 % Carotid doppler 01/2017: < 20% plaque in bilat ICA, antegrade flow in bilat vertebral arteries Last Assessment & Plan: Patient with known documented moderate c oronary artery disease with rare episodes of angina. Most recent anginal episode was May 2018 in the setting of urosepsis. Her antianginal medication were ad justed and patient had had no recurrent symptoms since then. She continues to be pretty active on daily basis and picks care of all her house needs including grocery shopping. She denies any resting or exertional chest pain, dyspnea, orthopne a or PND. She has no active angina, clinical heart failure and no arrhythmia. Patient is scheduled to undergo oral surgery with tonsillectomy. She is considered at acceptable risk to proceed with this planned pro cedure while on optimal medical therapy. No further cardiac testing is needed. 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 Personal history of stroke Hypertension H/O: hysterectomy Resolved Problems Problem Noted Date Resolved Date Diabetes mellitus without mention of complication, type II 02/14/2021 or unspecified type, not stated as uncontrolled (aka 250.00) Encounters Date Type Specialty Care Team Description 12/07/2021 Hospital Encounter Proton Therapy Lorna Davey, Squ amous cell PA carcinoma of tongue Faraz Luna MD 12/07/2021 Travel 12/06/2021 Ancillary Procedure Radiology Lorna Davey, Squa mous cell PA carcinoma of to ngue 12/06/2021 Hospital Encounter Radiation Oncology Lorna Davey, Squamous cell PA carcinoma of tongue Faraz Luna MD 12/06/2021 Travel 12/05/2021 Clinical Support Covid PetarLorna rios, Suspect ed COVID-19 (Primary Dx); PA Squamous cell carcinoma of tongue Ursula Da Silva, SUMAN 12/05/2021 Travel 12/03/2021 Orders Only Radiation Oncology Meme Watts RN 11/30/2021 Orders Only Radiology David Amezcua PA 11/30/2021 Orders Only Radiation Oncology PetarLorna meredith, Zoieam ous cell PA carcinoma of to ngue (Primary Dx) 11/30/2021 Orders Only Radiation Oncology Geo Mcknight, SUMAN 11/30/2021 Orders Only Radiation Oncology Chikis Stanley, SUMAN 11/26/2021 Hospital Encounter Head and Neck Opal Ly [place] stasis to head Surgery MD Lexii and neck lymph node 11/26/2021 Travel 11/10/2021 Orders Only Head and Neck Willem Peralta Metastasis to head Surgery MD Kennedy and neck lymph node (Primary Dx) 11/10/2021 Orders Only Head and Neck Altaf, Metastasis to head Surgery MD Keith and neck lymph node (Primary Dx) 11/09/2021 Anesthesia Event Tremaine Felder M D Foltermann, Stephanie L, CRNA 11/09/2021 Surgery Opal Ly LEVEL V ARNOLD Shultz MD DISSECTION 11/09/2021 Hospital Encounter Head and Neck Opal Ly Prim juany squamous cell carcinoma of palatine tonsil (Primary Dx); - Surgery MD Lexii 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; 11/10/2021 Squamous cell c arcinoma of tongue 11/09/2021 Travel 11/07/2021 Anesthesia Event Anesthesiology Gabby Flores MA 11/06/2021 Hospital Encounter Lab Reece, Prakash, ELECTRICAL SUPERINTENDENT Preope rative laboratory examination 11/06/2021 POEM Appointments Anesthesiology Ana Bradford, Preop erative laboratory examination (Primary Dx); PA 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; Squamous cell c arcinoma of tongue 11/06/2021 Clinical Support Covid Ana Bradford, Suspecte d COVID-19 (Primary Dx); PA Metastasis to head and neck lymph node; Sophia Jeronimo, Squamous katharine l carcinoma of tongue RN 11/06/2021 Office Visit Dental Oncology Opal Ly Metastas is to head and neck lymph node; MD Lexii Squamous cell c arcinoma of tongue 11/06/2021 Travel 11/04/2021 Prep for Surgery Head and Neck Ana Bradford, Metasta sis to head and neck lymph node (Primary Dx); Surgery PA Squamous cell c arcinoma of tongue 11/01/2021 Orders Only Radiation Oncology Faraz Luna MD 10/24/2021 Ancillary Procedure Radiology Opal Ly Prim juany malignant neoplasm of gum; MD Lexii Personal histor y of irradiation; Cervical lympha denopathy 10/24/2021 Travel 10/22/2021 Hospital Encounter Head and Neck Opal Ly Cerv ical lymphadenopathy (Primary Dx); Surgery MD Lexii Primary maligna nt neoplasm of gum; Personal histor y of irradiation; Lesion of tongu e 10/22/2021 Travel 10/17/2021 Hospital Encounter Radiology Ana Bradford, Primar y malignant neoplasm of gum; PA Personal histor y of irradiation 10/17/2021 Hospital Encounter Lab Ana Bradford, Primar y malignant neoplasm of gum; PA Personal histor y of irradiation 10/17/2021 Travel 08/13/2021 Hospital Encounter Head and Neck Opal Ly 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); Surgery MD Lexii Squamous cell c arcinoma of tongue; Personal histor y of irradiation 08/13/2021 Travel 08/10/2021 Hospital Encounter Dental Oncology Hofstede, Primar y squamous cell carcinoma of palatine tonsil (Primary Dx); MAGDALENA Holliday Personal histor y of melanoma of skin; 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 Oscar merchant 08/10/2021 Travel 08/09/2021 Hospital Encounter Radiation Oncology Faraz Luna MD S quamous cell carcinoma of to ngue 08/09/2021 Clinical Support Opal Pineda Suspect ck Shultz MD (Primary Dx) Saba Quezada MA 08/09/2021 Hospital Encounter Radiology PetarLorna rios, Squam ous cell PA carcinoma of to ngue 08/09/2021 Hospital Encounter Lab PetarLorna rios, Squam ous cell PA carcinoma of to ngue 08/09/2021 Travel 07/23/2021 Orders Only Head and Neck Corey Shay histo ry of Surgery MELANIE Calderon melanoma of sk in (Primary Dx) 07/18/2021 Orders Only Dental Oncology Christiano, Primary sq uamous Mónica Amador DDS cell carcinoma of palatine tonsil (Primary Dx) 07/17/2021 Hospital Encounter Dental Oncology Christiano, 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); Mónica Amador DDS Primary squamou s cell carcinoma of palatine tonsil; Painful mouth; Trismus 07/17/2021 Travel 07/16/2021 Clinical Support Opal Pineda Suspect ck Shultz MD (Primary Dx) Melita Perkins RN 07/16/2021 Travel 07/11/2021 Orders Only Dental Oncology Bradfordfsjarad, Primary freeman gnant neoplasm of gum (Primary Dx); Miya DDS Primary squamou s cell carcinoma of palatine tonsil; Painful mouth 06/12/2021 Hospital Encounter Proton Therapy Opal Ly MD 06/12/2021 Documentation Radiation Oncology Faraz Luna MD 06/12/2021 Travel 06/11/2021 Hospital Encounter Proton Therapy Opal Ly MD 06/11/2021 Travel 06/10/2021 Hospital Encounter Proton Therapy Opal Ly MD 06/10/2021 Travel 06/08/2021 Hospital Encounter Proton Therapy Opal Ly MD 06/08/2021 Orders Only Radiology Mary Thacker MD 06/08/2021 Orders Only Radiation Oncology Petar, Elo Pandey ous cell PA carcinoma of to ngue (Primary Dx) 06/08/2021 Travel 06/07/2021 Hospital Encounter Proton Therapy Opal Ly MD 06/07/2021 Hospital Encounter Radiation Oncology Faraz Luna MD 06/07/2021 Travel 06/06/2021 Hospital Encounter Proton Therapy Opal Ly MD 06/06/2021 Travel 06/05/2021 Hospital Encounter Proton Therapy Opal Ly MD 06/05/2021 Travel 06/04/2021 Hospital Encounter Proton Therapy Opal Ly MD 06/04/2021 Travel 06/01/2021 Hospital Encounter Proton Therapy Opal Ly MD 06/01/2021 Documentation Mayela Benitez, LUIS MANUEL 06/01/2021 Travel 05/31/2021 Hospital Encounter Proton Therapy Opal Ly MD 05/31/2021 Hospital Encounter Radiation Oncology Faraz Luna MD 05/31/2021 Travel 05/30/2021 Hospital Encounter Proton Therapy Opal Ly MD 05/30/2021 Travel 05/29/2021 Hospital Encounter Proton Therapy Opal Ly MD 05/29/2021 Travel 05/28/2021 Hospital Encounter Proton Therapy Faraz Luna MD 05/28/2021 Hospital Encounter Proton Therapy Opal Ly MD 05/28/2021 Documentation Radiation Oncology Faraz Luna MD 05/28/2021 Travel 05/25/2021 Hospital Encounter Proton Therapy Opal Ly MD 05/25/2021 Travel 05/24/2021 Hospital Encounter Radiation Oncology Faraz Luna MD 05/24/2021 Travel 05/23/2021 Hospital Encounter Proton Therapy Opal Ly MD 05/23/2021 Travel 05/22/2021 Hospital Encounter Proton Therapy Opal Ly MD 05/22/2021 Travel 05/21/2021 Hospital Encounter Proton Therapy Opal Ly MD 05/21/2021 Travel 05/18/2021 Hospital Encounter Proton Therapy Opal Ly MD 05/18/2021 Travel 05/17/2021 Hospital Encounter Proton Therapy Opal Ly MD 05/17/2021 Hospital Encounter Radiation Oncology Faraz Luna MD 05/17/2021 Orders Only Radiation Oncology Faraz Luna MD Squamou s cell carcinoma of to ngue (Primary Dx) 05/17/2021 Travel 05/16/2021 Hospital Encounter Proton Therapy Opal Ly MD 05/16/2021 Travel 05/15/2021 Hospital Encounter Proton Therapy Opal Ly MD 05/15/2021 Travel 05/15/2021 Orders Only Radiation Oncology Faraz Luna MD Squamou s cell carcinoma of to ngue (Primary Dx) 05/14/2021 Hospital Encounter Proton Therapy 05/14/2021 Travel 05/11/2021 Hospital Encounter Proton Therapy 05/11/2021 Travel 05/10/2021 Hospital Encounter Proton Therapy 05/10/2021 Hospital Encounter Radiation Oncology Faraz Luna MD 05/10/2021 Orders Only Radiation Oncology Faraz Luna MD Squamou s cell carcinoma of to ngue (Primary Dx) 05/10/2021 Travel 05/09/2021 Hospital Encounter Proton Therapy 05/09/2021 Hospital Encounter Proton Therapy Faraz Luna MD 05/09/2021 Documentation Radiation Oncology Faraz Luna MD 05/09/2021 Travel 05/08/2021 Hospital Encounter Proton Therapy 05/08/2021 Hospital Encounter Radiation Oncology Faraz Luna MD 05/08/2021 Travel 05/07/2021 Hospital Encounter Proton Therapy 05/07/2021 Travel 05/04/2021 Hospital Encounter Proton Therapy 05/04/2021 Travel 05/03/2021 Hospital Encounter Proton Therapy 05/03/2021 Nutrition Nutrition Sofi, Ivon Show Mayela, RD 05/03/2021 Travel 05/03/2021 Telephone Radiation Oncology Chikis Stanley, SUMAN 05/02/2021 Hospital Encounter Proton Therapy 05/02/2021 Hospital Encounter Proton Therapy Faraz Luna MD 05/02/2021 Hospital Encounter Radiation Oncology 05/02/2021 Hospital Encounter Dental Oncology Hofstede, Primar y malignant neoplasm of gum (Primary Dx); Miya, DDS Xerostomia; Primary squamou s cell carcinoma of palatine tonsil; Risk for dental caries, moderate 05/02/2021 Documentation Radiation Oncology Faraz Luna MD 05/02/2021 Travel 04/30/2021 Hospital Encounter Radiation Oncology 04/18/2021 Documentation Radiation Oncology Faraz Luna MD 04/12/2021 Hospital Encounter Radiation Oncology Faraz Luna MD 04/12/2021 Hospital Encounter Dental Oncology Avtar Morrissey juany malignant neoplasm of gum (Primary Dx); S, DMD Oral lichen tayler nus; Xerostomia; Trismus; Primary squamou s cell carcinoma of palatine tonsil; Squamous cell c arcinoma of tongue; Other acquired deformity of head 04/12/2021 Documentation Radiation Oncology Faraz Luna MD 04/12/2021 Documentation Radiation Oncology Faraz Luna MD 04/12/2021 Telephone Radiation Oncology Tara Brennan PA 04/12/2021 Travel 04/11/2021 Hospital Encounter Radiology Squamous cell carcinoma of to ngue 04/11/2021 Travel 04/10/2021 Telephone Radiation Oncology Tara Brennan PA 04/06/2021 Hospital Encounter Dental Oncology Yuni Avtar Rose mous cell carcinoma of gum (Primary Dx); S, DMD Atherosclerotic heart disease of [place] coronary artery with other form of angina pectoris; Oral lichen tayler nus; Trismus; Acquired absenc e of teeth 04/06/2021 Travel 04/05/2021 Clinical Support Jhon Bo Suspect ed [id number] D, RN (Primary Dx) 04/05/2021 Hospital Encounter Radiation Oncology Faraz Luna MD S quamous cell carcinoma of to ngue (Primary Dx) 04/05/2021 Hospital Encounter Radiation Oncology Faraz Luna MD P rimary squamous cell carcinoma of palatine tonsil 04/05/2021 Orders Only Radiation Oncology Tara Brennan s cell E, PA carcinoma of to ngue (Primary Dx) 04/05/2021 Travel 04/04/2021 Orders Only Radiation Oncology Tara Brennan Primary squamous E, PA cell carcinoma of palatine tonsil (Primary Dx) 04/04/2021 Telephone Radiation Oncology Tara Brennan PA 03/29/2021 Telephone Radiation Oncology Tara Brennan PA 03/22/2021 Hospital Encounter Dental Oncology Avtar Morrissey Otbronson r acquired deformity of head (Primary Dx); S, DMD Primary squamou s cell carcinoma of palatine tonsil; Primary maligna nt neoplasm of gum; Squamous cell c arcinoma of tongue; Tonsil carcinom a; Lichen planus, not otherwise specified 03/22/2021 Travel 03/20/2021 Orders Only Radiation Oncology Tara Brennan Primary squamous E, PA cell carcinoma of palatine tonsil (Primary Dx) 03/19/2021 Clinical Support Opal Pineda Suspect ed NANCY Shultz MD (Primary Dx) Sravanthi Urena MA 03/19/2021 Travel 03/16/2021 Orders Only Radiation Oncology Tara Brennan Primary squamous E, PA cell carcinoma of palatine tonsil (Primary Dx) 03/12/2021 Hospital Encounter Head and Neck Opal Ly Prim juany squamous cell carcinoma of palatine tonsil (Primary Dx); Surgery MD Lexii Squamous cell c arcinoma of tongue; Squamous cell c arcinoma of palate; Primary maligna nt neoplasm of gum 03/12/2021 Hospital Encounter Dental Oncology Avtar Morrissey r acquired deformity of head (Primary Dx); S, DMD Primary maligna nt neoplasm of gum; Leukoplakia of oral mucosa; Lichen planus, not otherwise specified; Personal histor y of irradiation; Personal histor y of melanoma of skin; Primary squamou s cell carcinoma of palatine tonsil; Secondary and u nspecified 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, face and neck; Squamous cell c arcinoma of tongue; Tonsil carcinom a 03/12/2021 Travel 03/05/2021 Telephone Head and Neck Kavita Shay Surgery Lalo, RN 03/02/2021 Orders Only Head and Neck Ana Bradford, Dedra ce ll carcinoma of tongue (Primary Dx); Surgery PA Squamous cell c arcinoma of palate 02/20/2021 Orders Only Dental Oncology Owen Irizarry Primary m alignant DDS neoplasm of gum (Primary Dx) 02/16/2021 Anesthesia Event Aldo Marshall MD 02/16/2021 Surgery Opal Ly LASER ABLAT ION OF MD Lexii ORAL CAVITY 02/16/2021 Hospital Encounter PACU Post Op Opal Ly ous cell carcinoma of tongue (Primary Dx); Concepción Shultz MD Primary maligna nt neoplasm of gum; 02/17/2021 Oral lichen tayler nus; Leukoplakia of oral mucosa; Lesion of tongu e; Secondary and u nspecified 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, face and neck 02/16/2021 Orders Only Head and Neck Bear, Duncan, Squamous c ell Surgery PA carcinoma of to ngue (Primary Dx) 02/16/2021 Documentation Head and Neck Judy Hinojosa Surgery 02/16/2021 Travel 02/15/2021 Travel 02/14/2021 Anesthesia Event Anesthesiology Ayana Hahn MA 02/14/2021 Clinical Support Covid Ana Bradford Suspecte d COVID-19 (Primary Dx); PA Primary malignant neoplasm of gum; Saba Quezada Oral lichen p lanus; OSWALDO Cerrato Leukoplakia of oral mucosa; Lesion of tongu e 02/14/2021 Consult Internal Medicine Ana Bradford Atheros clerotic heart disease of [place] coronary artery without angina pectoris, not otherwise specified (Primary Dx); PA Primary malignant neoplasm of gum; Yonathan Stanley Q, Oral lichen planus; Leukoplakia of oral mucosa; Lesion of tongu e; Other specified hypothyroidism; Gastro-esophage al reflux disease without esophagitis, not otherwise specified; Prediabetes; Abnormal gait 02/14/2021 Hospital Encounter Cardiology Phil Ghosh Preope rative PA cardiovascular examination 02/14/2021 Hospital Encounter Lab Phil Ghosh Preope rative PA laboratory examination 02/14/2021 POEM Appointments Anesthesiology Opal Ly perative cardiovascular examination (Primary Dx); MD Lexii Preoperative la boratory examination 02/14/2021 Hospital Encounter Dental Oncology Owen Irizarry Pri mary malignant neoplasm of gum; DDS Oral lichen tayler nus; Leukoplakia of oral mucosa; Lesion of tongu e 02/14/2021 Travel 02/08/2021 Orders Only Head and Neck Ana Bradford, Surgery PA 02/06/2021 Office Visit Dental Oncology Opal Ly Squamous cell carcinoma of tongue; MD Lexii Oral lichen tayler nus 02/06/2021 Hospital Encounter Lab Ana Bradford Squamo us cell carcinoma of tongue; PA Oral lichen tayler nus 02/06/2021 Hospital Encounter Radiology Ana Bradford [place] us cell carcinoma of tongue; PA Oral lichen tyaler nus 02/06/2021 Orders Only Head and Neck Opal Ly Squamous c ell Surgery MD Lexii carcinoma of pa late (Primary Dx) 02/06/2021 Prep for Surgery Head and Neck Ana Bradford Squamou s cell carcinoma of tongue (Primary Dx); Surgery PA Primary maligna nt neoplasm of gum; Oral lichen tayler nus; Leukoplakia of oral mucosa; Lesion of tongu e 02/06/2021 Travel 01/23/2021 Orders Only Head and Neck Ana Bradford, Surgery PA after 12/10/2020 Immunizations Name Administration Dates Next Due Pfizer SARS-CoV-2 Vaccination 02/25/2021, 02/02/2021 Surgical History Surgery Date Site/Laterality Comments HYSTERECTOMY 07/21/1969 - 07/20/1970 HI PART REMOVAL 09/24/2017 Mouth/Right Procedure: GLOSS ECTOMY - TONGUE,<1/2 LESS THAN 1/2 OF TONGUE; Surgeon: Opal Ly MD; Location: [facility]; Service: HN - HE AD & NECK SURGERY HI TONGUE AND MOUTH SURG 09/24/2017 Right Procedu re: LASER ABLATION UNLISTED OF ORAL CAVITY; Surgeon: Opal zamarripa MD; Location: [facility]; Service: HN - HE AD & NECK SURGERY HI REMOVAL NODES, 09/24/2017 Right Procedure: LEV EL II-III NECK,CERV MOD RAD NECK DISSECTIO N; Surgeon: Opal zamarripa MD; Location: [facility]; Service: HN - HE AD & NECK SURGERY HI NEUROENDOSCOP,W/EXCISE 09/24/2017 N/A Proced ure: ENDOSCOPIC BRAIN TUMOR ENDONASAL APPROA CH TO SKULL BASE AND P ARANASAL SINUSES AND BIOP SY; Surgeon: Opal Ly MD; Location: MAIN [facility]; Service: HN - HE AD & NECK SURGERY BACK SURGERY x3; 42 years old SKIN CANCER EXCISION HI REMOVAL OF TONSILS,12+ 09/11/2018 Mouth/Right Proced ure: PRIMARY Y/O TONSILLECTOMY/WI DE LOCAL EXCISION OF RIGH T TONSIL LESION; Surgeon : Opal Ly MD; Location: [facility]; Service: HN - HE AD & NECK SURGERY Medical devices from this surgery are in t he Medical Devices section. HI SUB GRFT 09/11/2018 Right Procedure: APPLI CATION OF F/S/N/H/F/G/M/D /<100SCM SKIN BROWN BSTITUTE GRAFT TO /<1ST 25 SCM MOUTH - Integra 2x2; Surgeon: Opal Ly MD; Location: [facility]; Service: HN - HE AD & NECK SURGERY Medical devices from this surgery are in t he Medical Devices section. HI DENTAL SURGERY 09/11/2018 Mouth/Right Procedure: DEN ALEXUS PROCEDURE EXTRACTION(S); Surgeon: Opal zamarripa MD; Location: [facility]; Service: HN - HE AD & NECK SURGERY Medical devices from this surgery are in t he Medical Devices section. HI TONGUE AND MOUTH SURG 02/16/2021 Mouth/Bilateral Procedu re: LASER ABLATION UNLISTED OF ORAL CAVITY; Surgeon: Opal zamarripa MD; Location: [facility]; Service: HN - HE AD & NECK SURGERY Medical devices from this surgery are in t he Medical Devices section. HI SUB GRFT 02/16/2021 Mouth/Right Procedure: APPLI CATION OF F/S/N/H/F/G/M/D /<100SCM SKIN BROWN BSTITUTE GRAFT TO /<1ST 25 SCM MOUTH; Surgeon: Opal Ly MD; Location: [facility]; Service: HN - HE AD & NECK SURGERY Medical devices from this surgery are in t he Medical Devices section. HI EXCIS MOUTH 02/16/2021 Mouth/Right Procedure: WLE o f alveolar MUCOSA/SUB,NO REPAIR ridge; Erica geon: Opal Ly MD; Location: [facility]; Service: HN - HE AD & NECK SURGERY Medical devices from this surgery are in t he Medical Devices section. HI REMV UPPER 02/16/2021 Mouth/Right Procedure: MAXIL LECTOMY, JAW-MAXILLECTOMY WITHOUT ORBITAL EXTENERATION; S urgeon: Opal zamarripa MD; Location: [facility]; Service: HN - HE AD & NECK SURGERY Medical devices from this surgery are in t he Medical Devices section. HI PREP FACE/ORAL PROST 02/16/2021 Mouth/Bilateral Procedur e: TAKING ORAL SPLINT IMPRESSION FOR O RAL SURGICAL SPLINT AND CUSTOM PREPARATION OF S PLINT; Surgeon: Avtar Morrissey DMD; Location: MAIN OR; Service: ORAL ON COLOGY & MAXILLOFACIAL PROSTHODONTICS Medical devices from this surgery are in t he Medical Devices section. 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 Personal history of malignant melanoma of skin Postoperative nausea and vomiting Family History Medical History Relation Name Comments -Gynecology (Ovary, Endometrial, Cervix, Vagina) Maternal Aunt -Gastrointestinal (Esophagus, Liver, Bile Duct, Maternal Uncle Stomach, Pancreas, Colon, Rectum, Anus -Multiple Myeloma Sister 1 -Melanoma Sister 2 -Melanoma Sister 3 -Gastrointestinal (Esophagus, Liver, Bile Duct, Sister 4 Stomach, Pancreas, Colon, Rectum, Anus Relation Name Status Comments Maternal Aunt Maternal Uncle Sister 1 Sister 2 Sister 3 Sister 4 Social History Tobacco Use Types Packs/Day Years Used Date Never Smoker Smokeless Tobacco: Never Used Alcohol Use Standard Drinks/Week Comments No 0 (1 standard drink = 0.6 oz pure alcoho l) Education Answer Date Recorded What is the highest level of school you have High school [employer] 02/14/2021 completed or the highest degree you have received? 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 Obstetrics History Last Filed Vital Signs Vital Sign Reading Time Taken Comments Blood Pressure 158/90 12/06/2021 9:43 AM CDT Pulse 66 12/06/2021 9:43 AM CDT Temperature 36.7 C (98.1 F) 12/06/2021 9:43 AM CDT Respiratory Rate 18 12/06/2021 9:43 AM CDT Oxygen Saturation 98% 12/06/2021 9:43 AM CDT Inhaled Oxygen Concentration - - Weight 66.6 kg (146 lb 13.2 oz) 11/26/2021 11:13 AM CDT Height 161 cm (5' 3.39") 11/09/2021 10:25 PM CDT Body Mass Index 25.69 11/09/2021 10:25 PM CDT Plan of Treatment Date Type Specialty Care Team Description 12/19/2021 Appointment Radiation Oncology Opal Ly MD [address] [place] [address] [phone] (Wo rk) 12/21/2021 Appointment Radiation Oncology Opal Ly MD [address] [place] [address] [phone] (Wo rk) 12/24/2021 Appointment Radiation Oncology Opal Ly MD [address] [place] [address] [phone] (Wo rk) 12/26/2021 Appointment Radiation Oncology Opal Ly MD [address] [place] [address] [phone] (Wo rk) 12/27/2021 Appointment Radiation Oncology Faraz Luna M D [address] [place] [address] [phone] (Wo rk) 12/28/2021 Appointment Radiation Oncology Opal Ly MD [address] [place] [address] [phone] (Wo rk) Health Maintenance Due Date Last Done Comments COVID-19 Vaccination (3 - Pfizer risk 03/25/2021 02/25/2021 , 02/02/2021 4-dose series) Medical Devices Implanted Type Area Manager Sterile Processing Device Shelf Model / Identifier Expiration Serial / Date Lot Bilayer Wound Dressing 2?X2? - [id number] Skin/Tis Right: Soft INTE GRA 05/20/2021 [employer]-2020 / Implanted: Qty: 1 on 09/11/2018 by Opal Ly MD at [facility] [employer] / SURG [id number] Bilayer Wound Dressing 2in X 2 In - [id number] Skin/Tis Right: INTEGRA 05/20/2022 / Implanted: Qty: 1 on 02/16/2021 by Opal Ly MD at [facility] [employer] / SURG [id number] Procedures Procedure Name Priority Date/Time Associated Comments Diagnosis MRI HEAD/NECK Routine 12/07/2021 11:14 Squamous cell Results f or this SIMULATION W WO AM CDT carcinoma of procedure ar e in CONTRAST (RO) tongue the results section. POC CREATININE Routine 12/07/2021 9:49 Results f or this AM CDT procedure are i n the results section. CT SOFT TISSUE NECK W Routine 12/06/2021 12:39 Squamous cell R esults for this CONTRAST PM CDT carcinoma of procedure are i n tongue the results section. COVID-19 Routine 12/05/2021 1:43 Suspected COVID-19 Resul ts for this (SARS-COV-2) PCR PM CDT procedure a re in ASYMPTOMATIC the results section. 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 TMP INTERPRETATION STAT 11/09/2021 1:50 Resul ts for this ANTIBODY SCREEN PM CDT procedure ar e in NEGATIVE the results section. ANTIBODY SCREEN STAT 11/09/2021 1:50 Results for this PM CDT procedure are i n the results section. ABORH STAT 11/09/2021 1:50 Results for this PM CDT procedure are i n the results section. TYPE AND SCREEN STAT 11/09/2021 1:50 PM CDT POC GLUCOSE SCREEN Routine 11/09/2021 11:01 Resul ts for this AM CDT procedure are i n the results section. MANUAL DIFFERENTIAL Routine 11/06/2021 3:13 Preoperative Resu lts for this PM CDT laboratory examination proce dure are in the results section. Results CBC Routine 11/06/2021 3:13 Preoperative Results for this PM CDT laboratory examination proce dure are in the results section. .GLOMERULAR FILTRATION Routine 11/06/2021 3:13 Preoperative R esults for this RATE PM CDT laboratory examination proce dure are in the results section. SERUM CREATININE Routine 11/06/2021 3:13 Preoperative Results for this PM CDT laboratory examination proce dure are in the results section. HEMOGLOBIN A1C Routine 11/06/2021 3:13 Preoperative Results f or this PM CDT laboratory examination proce dure are in the results section. GLUCOSE, RANDOM Routine 11/06/2021 3:13 Preoperative Results for this PM CDT laboratory examination proce dure are in the results section. ELECTROLYTE PANEL Routine 11/06/2021 3:13 Preoperative Result s for this PM CDT laboratory examination proce dure are in the results section. SERUM CREATININE Routine 11/06/2021 3:13 Preoperative PM CDT laboratory examination COMPLETE BLOOD COUNT Routine 11/06/2021 3:13 Preoperative W/ DIFFERENTIAL PM CDT laboratory examination BLOOD UREA NITROGEN Routine 11/06/2021 3:13 Preoperative Resu lts for this PM CDT laboratory examination proce dure are in the results section. COVID-19 Routine 11/06/2021 12:32 Suspected COVID-19 Resul ts for this (SARS-COV-2) PCR PM CDT procedure a re in ASYMPTOMATIC the results section. US FINE NEEDLE STAT 10/24/2021 11:10 Primary malignant Resu lts for this ASPIRATION AM CDT neoplasm of gum procedure are in Personal history of the resu lts irradiation section. Cervical lymphadenopathy US HEAD NECK SOFT STAT 10/24/2021 11:10 Primary malignant R esults for this TISSUE AM CDT neoplasm of gum procedure are in Personal history of the resu lts irradiation section. Cervical lymphadenopathy CYTOLOGY IMAGE-GUIDED STAT 10/24/2021 9:16 Primary maligna nt Results for this FNA INTERPRETATION AM CDT neoplasm of g um procedure are in Personal history of the resu lts irradiation section. Cervical lymphadenopathy CT SOFT TISSUE NECK W Routine 10/17/2021 2:48 Primary maligna nt Results for this CONTRAST PM CDT neoplasm of gum procedure are in Personal history of the resu lts irradiation section. POC CREATININE Routine 10/17/2021 1:33 Results f or this PM CDT procedure are i n the results section. .GLOMERULAR FILTRATION Routine 10/17/2021 1:08 Primary malign ant Results for this RATE PM CDT neoplasm of gum procedure are in Personal history of the resu lts irradiation section. SERUM CREATININE Routine 10/17/2021 1:08 Primary malignant Re sults for this PM CDT neoplasm of gum procedure are in Personal history of the resu lts irradiation section. THYROID STIMULATING Routine 10/17/2021 1:08 Primary malignant Results for this HORMONE PM CDT neoplasm of gum procedure are in Personal history of the resu lts irradiation section. FREE THYROXINE Routine 10/17/2021 1:08 Primary malignant Resu lts for this PM CDT neoplasm of gum procedure are in Personal history of the resu lts irradiation section. SERUM CREATININE Routine 10/17/2021 1:08 Primary malignant PM CDT neoplasm of gum Personal history of irradiation BLOOD UREA NITROGEN Routine 10/17/2021 1:08 Primary malignant Results for this PM CDT neoplasm of gum procedure are in Personal history of the resu lts irradiation section. 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 CT SOFT TISSUE NECK W Routine 08/09/2021 8:21 Squamous cell R esults for this CONTRAST AM SURVEY INSTRUMENT OPERATOR carcinoma of tongue procedur e are in the results section. POC CREATININE Routine 08/09/2021 7:33 Results f or this AM SURVEY INSTRUMENT OPERATOR procedure are i n the results section. .GLOMERULAR FILTRATION Routine 08/09/2021 6:50 Squamous cell Results for this RATE AM SURVEY INSTRUMENT OPERATOR carcinoma of tongue procedur e are in the results section. SERUM CREATININE Routine 08/09/2021 6:50 Squamous cell Result s for this AM SURVEY INSTRUMENT OPERATOR carcinoma of tongue procedur e are in the results section. SERUM CREATININE Routine 08/09/2021 6:50 Squamous cell AM SURVEY INSTRUMENT OPERATOR carcinoma of tongue BLOOD UREA NITROGEN Routine 08/09/2021 6:50 Squamous cell Res ults for this AM SURVEY INSTRUMENT OPERATOR carcinoma of tongue procedur e are in the results section. FREE THYROXINE Routine 08/09/2021 6:50 Squamous cell Results for this AM SURVEY INSTRUMENT OPERATOR carcinoma of tongue procedur e are in the results section. THYROID STIMULATING Routine 08/09/2021 6:50 Squamous cell Res ults for this HORMONE AM SURVEY INSTRUMENT OPERATOR carcinoma of tongue procedur e are in the results section. 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 CT SOFT TISSUE NECK W Routine 04/11/2021 7:07 Squamous cell R esults for this CONTRAST AM CDT carcinoma of tongue procedur e are in the results section. POC CREATININE Routine 04/11/2021 6:40 Results f or this AM CDT procedure are i n the results section. COVID-19 Routine 04/05/2021 9:48 Suspected COVID-19 Resul ts for this (SARS-COV-2) PCR AM CDT procedure a re in ASYMPTOMATIC the results section. COVID-19 Routine 03/19/2021 11:24 Suspected COVID-19 Resul ts for this (SARS-COV-2) PCR AM CDT procedure a re in ASYMPTOMATIC the results section. POC GLUCOSE SCREEN Routine 02/17/2021 7:58 Resul ts for this AM CDT procedure are i n the results section. POC GLUCOSE SCREEN Routine 02/16/2021 8:12 Resul ts for this PM CDT procedure are i n the results section. POC GLUCOSE SCREEN Routine 02/16/2021 4:12 Resul ts for this PM CDT procedure are i n the results section. POC GLUCOSE SCREEN Routine 02/16/2021 3:06 Resul ts for this PM CDT procedure are i n the results section. PATHOLOGY SURGICAL Routine 02/16/2021 1:35 Primary malignant Results for this INTERPRETATION PM CDT neoplasm of gum procedure are in Oral lichen plan us the results Leukoplakia of oral section. mucosa Lesion of tongue TAKING IMPRESSION FOR 02/16/2021 12:27 Primary maligna nt ORAL SURGICAL SPLINT PM CDT neoplasm of gum AND CUSTOM PREPARATION Oral lich en planus OF SPLINT Leukoplakia of oral mucosa Lesion of tongue Special Needs Integra 2X2NY @ 1100 MAXILLECTOMY, WITHOUT 02/16/2021 12:27 PM CDT Primary malignant neoplasm of ORBITAL EXTENERATION gum Oral lichen plan us Leukoplakia of o ral mucosa Lesion of tongue Special Needs Integra 2X2NY @ 1100 EXCISION OF LESION OF 02/16/2021 12:27 PM CDT Pr imary malignant neoplasm of gum MUCOSA AND SUBMUCOSA OF Oral lic hen planus VESTIBULE OF MOUTH, Leukoplakia of oral mucosa WITHOUT CLOSURE Lesion of tongue Special Needs Integra 2X2NY @ 1100 APPLICATION OF SKIN 02/16/2021 12:27 PM CDT Primary ma lignant neoplasm of SUBSTITUTE GRAFT TO MOUTH gum Oral lichen plan us Leukoplakia of o ral mucosa Lesion of tongue Special Needs Integra 2X2NY @ 1100 LASER ABLATION OF ORAL 02/16/2021 12:27 PM CDT P rimary malignant neoplasm of gum CAVITY Oral lichen plan us Leukoplakia of o ral mucosa Lesion of tongue Special Needs Integra 2X2NY @ 1100 POC GLUCOSE SCREEN Routine 02/16/2021 11:00 Resul ts for this AM CDT procedure are i n the results section. HC 2019-NCOV COVID-19 Routine 02/14/2021 3:48 Suspected COVID -19 Results for this PM CDT procedure are i n the results section. TMP INTERPRETATION Routine 02/14/2021 12:49 Resul ts for this ANTIBODY SCREEN PM CDT procedure ar e in NEGATIVE the results section. CLOT EXPIRATION DATE Routine 02/14/2021 12:49 Res ults for this PM CDT procedure are i n the results section. ANTIBODY SCREEN Routine 02/14/2021 12:49 Preoperative Results for this PM CDT laboratory procedure are i n examination the results section. ABORH Routine 02/14/2021 12:49 Preoperative Results for this PM CDT laboratory procedure are i n examination the results section. MANUAL DIFFERENTIAL Routine 02/14/2021 12:49 Preoperative Resu lts for this PM CDT laboratory procedure are i n examination the results section. Results CBC Routine 02/14/2021 12:49 Preoperative Results for this PM CDT laboratory procedure are i n examination the results section. HEMOGLOBIN A1C Routine 02/14/2021 12:49 Preoperative Results f or this PM CDT laboratory procedure are i n examination the results section. TYPE AND SCREEN Routine 02/14/2021 12:49 Preoperative PM CDT laboratory examination GLUCOSE, RANDOM Routine 02/14/2021 12:49 Preoperative Results for this PM CDT laboratory procedure are i n examination the results section. ELECTROLYTE PANEL Routine 02/14/2021 12:49 Preoperative Result s for this PM CDT laboratory procedure are i n examination the results section. COMPLETE BLOOD COUNT Routine 02/14/2021 12:49 Preoperative W/ DIFFERENTIAL PM CDT laboratory examination EKG, 12-LEAD Routine 02/14/2021 Preoperative (SCHEDULED) cardiovascular examination .GLOMERULAR FILTRATION Routine 02/06/2021 7:50 Squamous cell Results for this RATE AM CDT carcinoma of ton yan procedure are in Oral lichen planus the resul ts section. SERUM CREATININE Routine 02/06/2021 7:50 Squamous cell Result s for this AM CDT carcinoma of ton yan procedure are in Oral lichen planus the resul ts section. SERUM CREATININE Routine 02/06/2021 7:50 Squamous cell AM CDT carcinoma of ton yan Oral lichen planus BLOOD UREA NITROGEN Routine 02/06/2021 7:50 Squamous cell Res ults for this AM CDT carcinoma of ton yan procedure are in Oral lichen planus the resul ts section. CT SOFT TISSUE NECK W Routine 02/06/2021 7:17 Squamous cell R esults for this CONTRAST AM CDT carcinoma of ton yan procedure are in Oral lichen planus the resul ts section. POC CREATININE Routine 02/06/2021 6:30 Results f or this AM CDT procedure are i n the results section. after 12/10/2020 Results MRI Head/Neck Simulation with and without Contrast (12/07/2021 11:14 AM CDT) Specimen (Source) Anatomical Location Collection Method / Collectio n Time Received Time / Laterality Volume Narrative Systemgenerated, Documentation - 022 11:14 AM CDT This procedure requires no interpretatio n from the radiologist. Lorna NAVARRO IMG RO MRI SIM ORDERABLES POC Creatinine (12/07/2021 9:49 AM CDT)Only the most recent of5 resultswithin the time period is included. athologist Signature POC Crea 0.9 0.6 - 1.3 POC [facility] mg/dL Comment: Medications, especially hydroxyurea or s upplements, such as ascorbate, can interfere with test results causing a falsely and significantly higher result than expected. If a problem is suspected with a patient's result, a sample should be sent to the laboratory for confirmatory testing. Method description: The i-STAT is an chelsie lyzer used for in vitro quantification of various analytes in whole blood. The device uses a single disposable cartridge which contains microfabricated sensors, a calibration solution, fluidics system, and a waste chamber. Each test cartridge contains ch emically sensitive biosensors on a silicon chip that are configured to perform specific tests. The microfabricated sensors measure analyte concentration by an electrochemical assay. POC eGFR-AA 71 >=60 mL/min/1.73 m2 POC [facility] OR Comment: Normal eGFR >= 60 mL/min/1.73 m2 The eGFR is calculated using the CKD-EPI equation. The eGFR declines with age. eGFR <60 mL/min/1.73 m2 is considered as "decreased" This equation should only be used for patients 18 and older. According to the National [employer]'s Kidney Disease Outcome Quality Initiative (KDOQI) classification and 2012 Kidney Disease Improving Global Outcomes (KDIGO) Clinical Practice Guideline, the stage of CKD should be categorized based on estimated GFR. Stage Description GFR mL/min/1.73 m2 1 Kidney damage with normal or high GFR >=90 2 Kidney damage with mild decrease in GF R 60-89 3a Mild to moderate decrease in GFR 45-59 3b Moderate to severe decrease in GFR 30-44 4 Severe decrease in GFR 15-29 5 Kidney failure <15 (or dialysis) POC eGFR-IMELDA 61 >=60 mL/min/1.73 m2 POC [facility] Comment: Normal eGFR >= 60 mL/min/1.73 m2 The eGFR is calculated using the CKD-EPI equation. The eGFR declines with age. eGFR <60 mL/min/1.73 m2 is considered as "decreased" This equation should only be used for patients 18 and older. According to the National [employer]'s Kidney Disease Outcome Quality Initiative (KDOQI) classification and 2012 Kidney Disease Improving Global Outcomes (KDIGO) Clinical Practice Guideline, the stage of CKD should be categorized based on estimated GFR. Stage Description GFR mL/min/1.73 m2 1 Kidney damage with normal or high GFR >=90 2 Kidney damage with mild decrease in GF R 60-89 3a Mild to moderate decrease in GFR 45-59 3b Moderate to severe decrease in GFR 30-44 4 Severe decrease in GFR 15-29 5 Kidney failure <15 (or dialysis) POC Clean Dev Yes POC [facility] Performing Lab [facility] POC [facility] Comment: [facility], [address], [place], [place] [address]; Point of Care Qa Tech: Latosha Hurley MD Specimen Anatomical Collection Method Collection Time Receive d Time (Source) Location / / Volume Laterality Blood 12/07/2021 9:49 12/07/2021 AM CDT 9:49 AM CDT Lorna NAVARRO POCT ORDERABLES - DEVICE Performing Organization Address City/State/ZIP Code Phon e Number POC [facility] CT Soft Tissue Neck with Contrast (12/06/2021 12:39 PM CDT)Only the most recent of5 resultswithin the time period is included. Anatomical Region Laterality Modality Neck Computed Tomography Specimen (Source) Anatomical Collection Method Collection Time Re ceived Time Location / / Volume Laterality 12/08/2021 5:06 AM CDT Impressions 12/08/2021 5:15 AM CDT Surgical change of the right level 5A lymphadenectomy site. No additional adenopathy. Narrative 12/08/2021 5:15 AM CDT FULL RESULT: Examination: CT SOFT TISSUE NECK W CONTR AST on 12/06/2021 12:39 PM Clinical History: Squamous cell carcinom a of tongue. 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 Indication: Radiation, Pre-radiation tayler nning, post op Comparison: Contrast enhanced neck CT fr om 10/17/2021. Neck ultrasound from 10/24/2021 Technique: CT soft tissue neck with intr avenous contrast was performed. Findings: Infrastructure maxillectomy on the right and nonvisualization of the right tonsillar pillar and lateral retraction of the right oral pharynx and base of tongue and chemoradiation changes of the right ne ck are without concerning finding, uncha nged. 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 There is no new cervical adenopathy. The lung apices are clear. The osseous structures demonstrate no brown spicious lytic or blastic lesion. Other pertinent findings: None. 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 Indication: Radiation, Pre-radiation tayler nning, post op Comparison: Contrast enhanced neck CT fr om 10/17/2021. Neck ultrasound from 10/24/2021 Technique: CT soft tissue neck with intr avenous contrast was performed. Findings: Infrastructure maxillectomy on the right and nonvisualization of the right tonsillar pillar and lateral retraction of the right oral pharynx and base of tongue and chemoradiation changes of the right neck are without concerning finding, unchanged. 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 There is no new cervical adenopathy. The lung apices are clear. The osseous structures demonstrate no brown spicious lytic or blastic lesion. Other pertinent findings: None. IMPRESSION: Surgical change of the right level 5A ly mphadenectomy site. No additional adenopathy. Lorna NAVARRO IMG CT ORDERABLES COVID-19 (PAUL-CoV-2) PCR Asymptomatic (12/05/2021 1:43 PM CDT)Only the most recent of6 resultswithin the time period is included. Component Value Ref Range Test Analysis Performed Pathologis t Method Time At [facility] COVID19 SARS Pre-Radiation ANGLEA BARRAZA Indication Therapy [facility] COVID19 SARS Not Detected Not ANGELA BARRAZA Result Detected [facility] COVID19 SARS SARS-CoV-2 NOT Detected. [place] Interpretation BENNETT Reference Range: Not Detected [facility] Methodology: The Reinoso Real Time SARS-CoV-2 assay is a qualitative real-time reverse beater engineer helper polymerase chain reaction (overnight houseperson-PCR) test to detect RNA from SARS-CoV-2 in nasal, nasopharyngeal and oropharyngeal swabs from patients with signs and symptoms of infection who ar e suspected of COVID-19 by their health care provider. The Reinoso RealTime SARS-CoV-2 performed on the [employer]rus Works000 System is a dual target assay with primers and probes for the RdRp and N genes. Results must be interpreted within the context of all relevant clinical and laboratory findings, and epidemiological risk factors. Positive results are indicative of the presence of SARS-CoV-2 RNA; clinical correlation with patient history and other diagnostic information is ne cessary to determine patient infection status. Positive results do not rule out bacterial infection or co-infection with other viruses. Negative results do not preclude SARS- CoV-2 infection and should not be used as the sole basis for patient management decisions. The Reinoso RealTime SARS-CoV -2 assay is for in vitro diagnostic use under FDA Emergency Use Authorization only. Testing is limited to laboratories certified under the Clinical Laboratory Improvement Rita ndments of 1988 (CLIA), 42U.S.C. 263a, to perform high complexity tests. The T est was performed by the CLIA-certified, high- complexity Molecular Diagnostics Laboratory (MDL) at [facility] under the Food and Drug Administration (FDA) s Emergency Use Authorization. Factsheet for patients: https://www.[facility].org/AbbottFac tSheetPatients Factsheet for healthcare pro viders: https://www.[facility].org/AbbottFactSheetHCP Test performed by: [facility] Molecular Diagnostic Lab [address] [place] [address] Specimen (Source) Anatomical Collection Method Collection Time Re ceived Time Location / / Volume Laterality Nasopharyngeal Swab 12/05/2021 1:43 05/1 02/2022 PM CDT 3:07 PM CDT Faraz Luna MD MICROBIOLOGY - GENERAL ORDER GARY Performing Organization Address City/State/ZIP Code Phon e Number [facility] Unless otherwise noted, [address] all lab tests performed by: Division of Pathology and Laboratory Medicine [address] [place] [address] Pathology Surgical Interpretation (11/09/2021 3:41 PM CDT)Only the most recent of2 resultswithin the time period is included. 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 CDT Jess Two lymph nodes, negative for tumor MD Gregorio on See comment 2 at 10:37 PM W/FAS2 Comment The main mass 11/14/2021 [facility] likely represents 10:37 PM a completely CDT replaced lymph node with gross extranodal extension including to surround nerve bundles. Gross A: 11/14/2021 [facility] Description Neck, right, right neck diss ection level 5a---[id number] : Consists of an unoriented portion of yellow-white fibrofatty tissue and small amount of muscle (4.5 x 3.0 x 1.5 cm). 10:37 PM The specimen is sectioned t o reveal 5 possible pale felder-pink lymph nodes (ranging from 0 0.1 cm in greatest dimension up to 2.0 x 1.8 x 1.2 cm). The largest lymph node is sectioned to reveal a firm wh CD T ite-felder cut surface with a c entral cavity containing a small amount of red serous like fluid. The tumor within the lymph node appears to be infiltrating into the surrounding adipose tissue. SECTION CODE: A1, 1 possibl e lymph node; A2-4, 1 possible lymph node bisected in each cassette; A5-6, welding equipment sales representative sections from largest grossly positive lymph node. ES Disclaimer "Some tests 11/14/2021 [facility] reported here may 10:37 PM have been CDT developed and performance characteristics determined by [facility] Pathology and Laboratory Medicine. These tests have not been specifically cleared or approved by the U.S. Food and Drug Administration. If applicable, controls were reviewed and showed appropriate reactivity." Specimen Anatomical Collection Method Collection Time Receive d Time (Source) Location / / Volume Laterality Tissue (Neck, 11/09/2021 3:41 11/09/2021 Right) PM CDT 3:51 PM CDT Opal Ly MD LAB PATHOLOGY ORDERABLES Performing Organization Address City/State/ZIP Code Phon e Number [facility] [address] Clot Expiration Date (11/09/2021 1:50 PM CDT)Only the most recent of2 results within the time period is included. [facility] Signature T & S 11/12/2021 [facility] Specimen Anatomical Collection Method Collection Time Receive d Time (Source) Location / / Volume Laterality Blood 11/09/2021 1:50 11/09/2021 PM CDT 2:03 PM CDT Tremaine Felder MD BLOOD BANK TEST ORDERABLES Performing Organization Address City/[facility]/ZIP Code Phon e Number [facility] Unless otherwise noted, [place] [address] CENTER all lab tests performed by: Division of Pathology and Laboratory Medicine [address] [place] [address] TMP Interpretation Antibody Screen Negative (11/09/2021 1:50 PM CDT)Only the most recent of2 resultswithin the time period is included. [facility] TMP Auto Neg At the [facility] patient plasma shows no evidence of RBC alloantibodi es. Comment: STAN MARCUS MD, PhD - [id number] Dictated by: STAN MARCUS MD, Ph D - [id number] Dictated Date/Time: 11.09.2021 16:59 PM CDT Transcribed Date/Time: 11.09.2021 16:59 PM CDT Electronically Signed By: STAN MARCUS MD, PhD - [id number] on 11.09.2021 16:59 PM Specimen Anatomical Collection Method Collection Time Receive d Time (Source) Location / / Volume Laterality Blood 11/09/2021 1:50 11/09/2021 PM CDT 2:03 PM CDT Tremaine Felder MD BLOOD BANK TEST ORDERABLES Performing Organization Address City/[facility]/ZIP Code Phon e Number [facility] Unless otherwise noted, [address] all lab tests performed by: Division of Pathology and Laboratory Medicine [address] [place] [address] ABORh (11/09/2021 1:50 PM CDT)Only the most recent of2 resultswithin the time period is included. [facility] ABORh. O POS [facility] Specimen Anatomical Collection Method Collection Time Receive d Time (Source) Location / / Volume Laterality Blood 11/09/2021 1:50 11/09/2021 PM CDT 2:03 PM CDT Tremaine Felder MD BLOOD BANK TEST ORDERABLES Performing Organization Address City/[facility] Phon e Number [facility] Unless otherwise noted, [address] all lab tests performed by: Division of Pathology and Laboratory Medicine [address] [place] [address] Antibody Screen (11/09/2021 1:50 PM CDT)Only the most recent of2 resultswithin the time period is included. [facility] ABSC. Negative ABSC [facility] Specimen Anatomical Collection Method Collection Time Receive d Time (Source) Location / / Volume Laterality Blood 11/09/2021 1:50 11/09/2021 PM CDT 2:03 PM CDT Tremaine Felder MD BLOOD BANK TEST ORDERABLES Performing Organization Address City/[facility] Phon e Number [facility] Unless otherwise noted, [address] all lab tests performed by: Division of Pathology and Laboratory Medicine [address] [place] [address] (ABNORMAL) POC Glucose Screen (11/09/2021 11:01 AM CDT)Only the most recent of6 resultswithin the time period is included. [facility] POC Glucose 104 (H) 70 - 99 POC [facility]COR mg/dL Comment: MD Notified Capillary blood samples, e.g. obtained b y fingerstick, may have inaccurate results in patients with decreased peripheral blood flow. Method description: All results are genaro ured using Electrochemistry test methodology. The glucose in the sample mixes with the reagents on the test strip. The reaction produces an electric current. The amount of current produced is proportion al to the glucose concentration in the blood. PO Sample Type Capillary POC [facility]EL[facility] Performing Lab [facility] POC TELCO R Comment: [facility] Clinical Lab, [address] [place] [address], [place] [address]; Lab Direct or: Rebeka Cao MD Specimen Anatomical Collection Method Collection Time Receive d Time (Source) Location / / Volume Laterality Blood 11/09/2021 11:01 11/09/2021 AM CDT 11:01 AM CDT Opal Ly MD POCT ORDERABLES - DEVICE Performing Organization Address City/State/ZIP Code Phon e Number POC [facility] Glucose, Random (11/06/2021 3:13 PM CDT)Only the most recent of2 resultswithin the time period is included. athologist Signature Glucose Random 105 70 - 199 [facility] mg/dL [facility] Comment: Effective 02/14/16, the glucose reference intervals have been updated based on [place] Diabetes [employer] guidelines (Standards of Medical Care in Diabetes 2016. Diabetes Care 2016; 39: S13-S22). Fasting blood glucose: Normal: 70-99 mg/dL Impaired fasting glucose (increased risk for diabetes or pre-diabetes): 100- 125 mg/dL Diabetes mellitus: >/=126 mg/dL Random blood glucose: Normal: 70-199 mg/dL Note: Random glucose >100 mg/dL is assoc iated with increased risk for diabetes Specimen Anatomical Collection Method Collection Time Receive d Time (Source) Location / / Volume Laterality Blood 11/06/2021 3:13 11/06/2021 PM CDT 3:42 PM CDT Prakash Newell APN LAB BLOOD ORDERABLES Performing Organization Address City/[facility] Phon e Number [facility] Unless otherwise noted, [place] [address] CENTER all lab tests performed by: Division of Pathology and Laboratory Medicine [address] [place] [address] (ABNORMAL) .Serum Creatinine (11/06/2021 3:13 PM CDT)Only the most recent of4 resultswithin the time period is included. athologist Signature Creatinine 0.97 (H) 0.51 - 0.95 [facility] mg/dL CANCER CENTER Specimen Anatomical Collection Method Collection Time Receive d Time (Source) Location / / Volume Laterality Blood 11/06/2021 3:13 11/06/2021 PM CDT 3:42 PM CDT Prakash Newell APN LAB BLOOD ORDERABLES Performing Organization Address City/State/ZIP Code Phon e Number [facility] Unless otherwise noted, [place] [address] [place] all lab tests performed by: Division of Pathology and Laboratory Medicine [address] [place], [place] [address]madi Molina .CBC (11/06/2021 3:13 PM CDT)Only the most recent of2 resultswithin the time period is included. athologist Signature WBC 8.3 4.0 - 11.0 [facility] RBC 4.57 4.00 - [facility] 5.50 /[facility] Hgb 13.4 12.0 - [facility] 16.0 gm/dL [facility] Hct 41.1 37.0 - [facility] 47.0 % [facility] CENTER MCV 90 82 - 98 [facility] MCH 29.3 27.0 - [facility] 31.0 [facility] MCHC 32.6 31.0 - [facility] 36.0 gm/dL [facility] RDW-SD 44.6 35.1 - [facility] 46.3 [facility] RDW-CV 13.6 12.0 - [facility] 15.5 % [facility] Platelet count 282 140 - 440 [facility] MPV 9.8 4.0 - 10.4 [facility] INRBC 0.0 <=0.0 % [facility] Comment: The INRBC (instrument NRBC) value reflec ts the enumeration of nucleated red blood cells contained i n a 200uL sample of whole blood analyzed by the instrumen t. This value may differ from the NRBC value reported in a manual differential, which is based on a 100 cell differentia l. Specimen Anatomical Collection Method Collection Time Receive d Time (Source) Location / / Volume Laterality Blood 11/06/2021 3:13 11/06/2021 PM CDT 3:25 PM CDT Prakash Newell APN LAB BLOOD ORDERABLES Performing Organization Address City/[facility]/ZIP Code Phon e Number [facility] Unless otherwise noted, [place] [address] CENTER all lab tests performed by: Division of Pathology and Laboratory Medicine [address] [place] (ABNORMAL) Glomerular Filtration Rate (11/06/2021 3:13 PM CDT)Only the most recent of4 resultswithin the time period is included. P athologist Signature eGFR-AA 65 >=60 [facility] mL/min/1.73 CANCER CENTER sq. m Comment: Normal eGFR: >= 60 mL/min/1.73 m2 Note: The eGFR is calculated using the C KD-EPI equation. The eGFR declines with age. eGFR <60 mL/min/1.73 m2 is considered as "decreased". This equation should only be used for patients 18 and older. According to the National Kidney Foundat ion's Kidney Disease Outcome Quality Initiative (KDOQI) classification and 2012 Kidney Disease Improving Global Outcomes (KDIGO) Clinical Practice Guideline, the stage of CKD should be categorized based on estimated GFR. Stage Description GFR mL/min/1. 73 m2 1 Normal or high GFR >=90 2 Mildly decreased GFR 60-89 3a Mildly to moderately decreased GFR 45-59 3b Moderately to severely decreased GFR 30-44 4 Severely decreased GFR 15-29 5 Kidney failure <15 eGFR-IMELDA 56 (L) >=60 mL/min/1.73 sq. m [place] MD [facility] Comment: Normal eGFR: >= 60 mL/min/1.73 m2 Note: The eGFR is calculated using the C KD-EPI equation. The eGFR declines with age. eGFR <60 mL/min/1.73 m2 is considered as "decreased". This equation should only be used for patients 18 and older. According to the National Kidney Foundat ion's Kidney Disease Outcome Quality Initiative (KDOQI) classification and 2012 Kidney Disease Improving Global Outcomes (KDIGO) Clinical Practice Guideline, the stage of CKD should be categorized based on estimated GFR. Stage Description GFR mL/min/1. 73 m2 1 Normal or high GFR >=90 2 Mildly decreased GFR 60-89 3a Mildly to moderately decreased GFR 45-59 3b Moderately to severely decreased GFR 30-44 4 Severely decreased GFR 15-29 5 Kidney failure <15 Specimen Anatomical Collection Method Collection Time Receive d Time (Source) Location / / Volume Laterality Blood 11/06/2021 3:13 11/06/2021 PM CDT 3:42 PM CDT Prakash Newell DON LAB BLOOD ORDERABLES Performing Organization Address City/State/ZIP Code Phon e Number [facility] Unless otherwise noted, [address] all lab tests performed by: Division of Pathology and Laboratory Medicine [address] [place] Differential (11/06/2021 3:13 PM CDT)Only the most recent of2 resultswithin the time period is included. athologist Signature Neutrophil % 60.6 42.0 - 66.0 [facility] % CANCER CENTER Lymphocyte % 30.6 24.0 - 44.0 [facility] Monocyte % 6.3 2.0 - 7.0 % [facility] Eosinophil % 1.8 1.0 - 4.0 % [facility] Basophil % 0.5 0.0 - 1.0 % [facility] IGRE % 0.2 0.0 - 0.4 % [facility] Comment: IGRE % count includes Metamyelo cytes, Myelocytes, and Promyelocytes. Neutrophil Abs 5.03 1.70 - 7.30 K/uL [facility] Lymphocyte Abs 2.54 1.00 - 4.80 K/uL [place] [facility] Monocyte Abs 0.52 0.08 - 0.70 K/uL [place] [facility] Eosinophil Abs 0.15 0.04 - 0.40 K/uL [place] [facility] Basophil Abs 0.04 0.00 - 0.10 K/uL [place] [facility] IG Abs 0.02 0.00 - 0.04 K/uL [place] MD [facility] Specimen Anatomical Collection Method Collection Time Receive d Time (Source) Location / / Volume Laterality Blood 11/06/2021 3:13 11/06/2021 PM CDT 3:25 PM CDT Prakash Reece OCHOA LAB BLOOD ORDERABLES Performing Organization Address City/State/ZIP Code Phon e Number [facility] Unless otherwise noted, [address] all lab tests performed by: Division of Pathology and Laboratory Medicine [facility] [place] BUN (11/06/2021 3:13 PM CDT)Only the most recent of4 resultswithin the time period is included. athologist Signature BUN 21 6 - 23 [facility] mg/dL [facility] CENTER Specimen Anatomical Collection Method Collection Time Receive d Time (Source) Location / / Volume Laterality Blood 11/06/2021 3:13 11/06/2021 PM CDT 3:42 PM CDT Prakash CALVERTN LAB BLOOD ORDERABLES Performing Organization Address City/[facility] Phon e Number [facility] Unless otherwise noted, [address] all lab tests performed by: Division of Pathology and Laboratory Medicine [address] [place] [address] Hemoglobin A1c (11/06/2021 3:13 PM CDT)Only the most recent of2 resultswithin the time period is included. athologist Signature A1C 5.6 4.3 - 5.6 % [facility] Comment: HbA1c values >=6.5% are diagnostic of di abetes mellitus. Diagnosis should be confirmed by repeat testing. Therapeutic Action suggested: >8.0% HbA1 c; Goal of therapy: <7.0% HbA1c Specimen Anatomical Collection Method Collection Time Receive d Time (Source) Location / / Volume Laterality Blood 11/06/2021 3:13 11/06/2021 PM CDT 3:40 PM CDT Prakash CALVERTN LAB BLOOD ORDERABLES Performing Organization Address City/[facility] e Number [facility] Unless otherwise noted, [address] all lab tests performed by: Division of Pathology and Laboratory Medicine [address] [place] [address] Electrolyte Panel (11/06/2021 3:13 PM CDT)Only the most recent of2 results within the time period is included. athologist Signature Sodium Lvl 138 136 - 145 [facility] mEq/L [facility] Potassium Lvl 4.2 3.5 - 5.1 [facility] mEq/L [facility] CENTER Chloride 101 98 - 107 [facility] mEq/L [facility] CO2 25 22 - 29 [facility] mEq/L [facility] Anion Gap 12 4 - 14 [facility] mEq/L [facility] CENTER Specimen Anatomical Collection Method Collection Time Receive d Time (Source) Location / / Volume Laterality Blood 11/06/2021 3:13 11/06/2021 PM CDT 3:42 PM CDT Prakash Newell APN LAB BLOOD ORDERABLES Performing Organization Address City/State/ZIP Code Phon e Number [facility] Unless otherwise noted, [place] [address] CENTER all lab tests performed by: Division of Pathology and Laboratory Medicine [address] [facility] US Fine Needle Aspiration (10/24/2021 11:10 AM CDT) Anatomical Region Laterality Modality Ultrasound Specimen (Source) Anatomical Collection Method Collection Time Re ceived Time Location / / Volume Laterality 10/24/2021 9:27 AM CDT Impressions 10/24/2021 11:13 AM CDT Enlarged heterogeneous right superior po sterior neck node. Ultrasound-guided fine-needle aspiration was performed wit h preliminary results positive for carcinoma, pending final report. Narrative 10/24/2021 11:13 AM CDT FULL RESULT: Examination: US FINE NEEDLE ASPIRATION, US HEAD NECK SOFT TISSUE on 10/24/2021 11:10 AM Clinical History: 80-year-old female wit h history of head and neck squamous cell carcinoma. Indication: Abnormal lymph node Comparison: CT neck dated 10/17/2021 Technique: Real-time grayscale and power Doppler ultrasound of the neck. Findings: Located in the right superior posterior neck there is a heterogeneous, enlarged lymph node with internal necrosis/cystic change. Its approximate dimensions are 1.1 x 1.6 x 0.9 cm. This corresponds to th e adenopathy described on recent CT of t he neck and has been selected for fine- needle aspiration. Exploration with power Doppler reveals no significant associated vascularity. No additional worrisome adenopathy is id entified in the lateral compartments or central neck. Ultrasound-guided fine needle aspiration of a right posterior superior neck node: The procedure(s) and associated risks, b enefits, and alternatives were discussed with the patient, who agreed to proceed and signed an informed consent form. A safety timeout was done to verify the patient's identity, review any allergies, and confirm the side and site of the procedure. The right neck was cleansed with alcohol . 1% Xylocaine was used for local anesthesia. Fine-needle aspiration of the right brown perior posterior neck node was performed using a 20-gauge needle under sonographic guidance. Two passes were made. 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 Immediate Complications: There were no i mmediate complications, and the patient was discharged in stable condition. Disposition: The post-biopsy instruction s were reviewed with the patient. The patient was discharged from Neurointerventional Ultrasound in good condition. Procedure Note Shannan Sanz MD - 10/24/2021 FULL RESULT: Examination: US FINE NEEDLE ASPIRATION, US HEAD NECK SOFT TISSUE on 10/24/2021 11:10 AM Clinical History: 80-year-old female wit h history of head and neck squamous cell carcinoma. Indication: Abnormal lymph node Comparison: CT neck dated 10/17/2021 Technique: Real-time grayscale and power Doppler ultrasound of the neck. Findings: Located in the right superior posterior neck there is a heterogeneous, enlarged lymph node with internal necrosis/cystic change. Its approximate dimensions are 1.1 x 1.6 x 0.9 cm. This corresponds to the adenopathy described on recent CT of the neck and h as been selected for fine-needle aspiration. Exploration with power Doppler reveals no significant associated vascularity. No additional worrisome adenopathy is id entified in the lateral compartments or central neck. Ultrasound-guided fine needle aspiration of a right posterior superior neck node: The procedure(s) and associated risks, b enefits, and alternatives were discussed with the patient, who agreed to proceed and signed an informed consent form. A safety timeout was done to verify the patient's identity, review any allergies, and confirm the side and site of the procedure. The right neck was cleansed with alcohol . 1% Xylocaine was used for local anesthesia. Fine-needle aspiration of the right sup erior posterior neck node was performed using a 20-gauge needle under sonographic guidance. Two passes were made. 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 Immediate Complications: There were no i mmediate complications, and the patient was discharged in stable condition. Disposition: The post-biopsy instruction s were reviewed with the patient. The patient was discharged from Neurointerventional Ultrasound in good condition. IMPRESSION: Enlarged heterogeneous right superior po sterior neck node. Ultrasound-guided fine-needle aspiration was performed with preliminary results positive for carcinoma, pending final report. Opal Ly MD IMG US ORDERABLES US HEAD NECK SOFT TISSUE (10/24/2021 11:10 AM CDT) Anatomical Region Laterality Modality Head, Neck Ultrasound Specimen (Source) Anatomical Collection Method Collection Time Re ceived Time Location / / Volume Laterality 10/24/2021 9:27 AM CDT Impressions 10/24/2021 11:13 AM CDT Enlarged heterogeneous right superior po sterior neck node. Ultrasound-guided fine-needle aspiration was performed wit h preliminary results positive for carcinoma, pending final report. Narrative 10/24/2021 11:13 AM CDT FULL RESULT: Examination: US FINE NEEDLE ASPIRATION, US HEAD NECK SOFT TISSUE on 10/24/2021 11:10 AM Clinical History: 80-year-old female wit h history of head and neck squamous cell carcinoma. Indication: Abnormal lymph node Comparison: CT neck dated 10/17/2021 Technique: Real-time grayscale and power Doppler ultrasound of the neck. Findings: Located in the right superior posterior neck there is a heterogeneous, enlarged lymph node with internal necrosis/cystic change. Its approximate dimensions are 1.1 x 1.6 x 0.9 cm. This corresponds to th e adenopathy described on recent CT of t he neck and has been selected for fine- needle aspiration. Exploration with power Doppler reveals no significant associated vascularity. No additional worrisome adenopathy is id entified in the lateral compartments or central neck. Ultrasound-guided fine needle aspiration of a right posterior superior neck node: The procedure(s) and associated risks, b enefits, and alternatives were discussed with the patient, who agreed to proceed and signed an informed consent form. A safety timeout was done to verify the patient's identity, review any allergies, and confirm the side and site of the procedure. The right neck was cleansed with alcohol . 1% Xylocaine was used for local anesthesia. Fine-needle aspiration of the right brown perior posterior neck node was performed using a 20-gauge needle under sonographic guidance. Two passes were made. 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 Immediate Complications: There were no i mmediate complications, and the patient was discharged in stable condition. Disposition: The post-biopsy instruction s were reviewed with the patient. The patient was discharged from Neurointerventional Ultrasound in good condition. Procedure Note Shannan Sanz MD - 10/24/2021 FULL RESULT: Examination: US FINE NEEDLE ASPIRATION, US HEAD NECK SOFT TISSUE on 10/24/2021 11:10 AM Clinical History: 80-year-old female wit h history of head and neck squamous cell carcinoma. Indication: Abnormal lymph node Comparison: CT neck dated 10/17/2021 Technique: Real-time grayscale and power Doppler ultrasound of the neck. Findings: Located in the right superior posterior neck there is a heterogeneous, enlarged lymph node with internal necrosis/cystic change. Its approximate dimensions are 1.1 x 1.6 x 0.9 cm. This corresponds to the adenopathy described on recent CT of the neck and h as been selected for fine-needle aspiration. Exploration with power Doppler reveals no significant associated vascularity. No additional worrisome adenopathy is id entified in the lateral compartments or central neck. Ultrasound-guided fine needle aspiration of a right posterior superior neck node: The procedure(s) and associated risks, b enefits, and alternatives were discussed with the patient, who agreed to proceed and signed an informed consent form. A safety timeout was done to verify the patient's identity, review any allergies, and confirm the side and site of the procedure. The right neck was cleansed with alcohol . 1% Xylocaine was used for local anesthesia. Fine-needle aspiration of the right sup erior posterior neck node was performed using a 20-gauge needle under sonographic guidance. Two passes were made. 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 Immediate Complications: There were no i mmediate complications, and the patient was discharged in stable condition. Disposition: The post-biopsy instruction s were reviewed with the patient. The patient was discharged from Neurointerventional Ultrasound in good condition. IMPRESSION: Enlarged heterogeneous right superior po sterior neck node. Ultrasound-guided fine-needle aspiration was performed with preliminary results positive for carcinoma, pending final report. Opal Ly MD IMG US ORDERABLES (ABNORMAL) Cytology Image-Guided FNA Interpretation (10/24/2021 9:16 AM CDT) Component Value Ref Test Analysis Performed Pathologis t Range Method Time At Signature Gross A: 10/26/2021 [facility] Description Specimens procured: 11:17 AM 2 Diff Quik; 8 Pap Stain Slides CDT 20 ml, slightly cloudy slightly bloody fluid in RPMI 1 Cell Block Date/Time Placed in Formalin: 10/24/21 1:06 PM Size: 1.6 x 1.1 x 0.9 cm Immediate assessment for specimen adequacy was made x2 by Dr Libertad Brownlee. Immediate Adequate 10/26/2021 [facility] Assessment cellularity, 11:17 AM favor malignant CDT Major MALIGNANT (A) 10/26/2021 [facility] Zeina ctronically Classification 11:17 AM sofía d by Kenn Brownlee MD on 10/26/2021 a t 11:17 AM Diagnosis A. Lymph node, right posterior superior neck, fine needle aspiration: 10/26/2021 [facility] Electronically 11:17 AM signed by Kenn METASTATIC SQUAMOUS CELL CARCINOMA ISABEL Brownlee MD on 10/26/2021 a t 11:17 AM Comment An immunostain 10/26/2021 [facility] with an 11:17 AM appropriate CDT control, performed on the cell block preparation, show tumor cells to be positive for P40. This is supportive of the above diagnosis. Retained/Biomark SR: 10 S, 1 IP, 2 CB 10/26/2021 [facility] er Testing 11:17 AM Biomarker Testing: CDT MDL Cell Block: <50 MDL Pap: No MDL DQ: No FISH DQ: No Informational Some tests 10/26/2021 [facility] Points reported here may 11:17 AM have been CDT developed and performance characteristics determined by [facility] Pathology and Laboratory Medicine. These tests have not been specifically cleared or approved by the U.S. Food and Drug Administration. Specimen Anatomical Collection Method Collection Time Receive d Time (Source) Location / / Volume Laterality Fine Needle Asp 10/24/2021 9:16 10/25/19 22 (Neck, Right) AM CDT 10:10 AM CDT Opal Ly MD LAB CYTOLOGY ORDERABLES Performing Organization Address City/State/ZIP Code Phon e Number [facility] [place] [address] [id number] [place] TSH (10/17/2021 1:08 PM CDT)Only the most recent of2 resultswithin the time period is included. athologist Signature TSH 1.54 0.27 - 4.20 [facility] mcunit/mL [facility] Specimen Anatomical Collection Method Collection Time Receive d Time (Source) Location / / Volume Laterality Blood 10/17/2021 1:08 10/17/2021 PM CDT 1:59 PM CDT Ana NAVARRO LAB BLOOD ORDERABLES Performing Organization Address City/State/ZIP Code Phon e Number [facility] Unless otherwise noted, [address] all lab tests performed by: Division of Pathology and Laboratory Medicine [address] [place] [address] Free T4 (10/17/2021 1:08 PM CDT)Only the most recent of2 resultswithin the time period is included. [facility] T4 Free 1.70 0.93 - 1.70 [facility] ng/dL [facility] Specimen Anatomical Collection Method Collection Time Receive d Time (Source) Location / / Volume Laterality Blood 10/17/2021 1:08 10/17/2021 PM CDT 1:59 PM CDT Ana NAVARRO LAB BLOOD ORDERABLES Performing Organization Address City/State/ZIP Code Phon e Number [facility] Unless otherwise noted, [address] all lab tests performed by: Division of Pathology and Laboratory Medicine [address] [place] [address] COVID-19 (SARS-CoV-2) PCR-Asymptomatic (08/09/2021 8:49 AM SURVEY INSTRUMENT OPERATOR) [facility] Method Time Signature COVID19 (SARS Not Detected Not Detected [facility] CoV-2) [facility] Comment: This test is a qualitative reverse-trans criptase polymerase chain reaction (RT- PCR) developed for the [employer] RUSS 6800 system and intended for qualitative detection of SARS CoV-2 RNA in nasopharyngeal a nd oropharyngeal swab specimens collecte d from any individuals, including those suspected o f COVID-19 by their healthcare provider, and those without symptoms or other reasons to suspect COVID-19. A fact sheet for patients provided by the twisting frame changer ( [employer]) can be rev iewed at: https://www.fda.gov/media/725278/abi cerrato. A fact sheet for Health Care providers is provided by the twisting frame changer ([employer]) and can be reviewed at: https://www.fda.gov/media/483716/download Results must be interpreted within the c ontext of all relevant clinical and laboratory findings and should not form the sole basis for a diagnosis or treatment decision. Positive results do not rule out bacterial infection or co- infection with other viruses. Negative results do not rule ou t SARS-CoV-2 and must be combined with clinical observations, patient history, and/or epidemiological information. "Presumptive Positive" results are due t o partial amplification of SARS-CoV-2 targets and indicates low amounts of virus present in the specimen at or near the limit of detection. Regardless, individuals with "Presumptive Positive" results should be managed per institutional guidelines as individuals positive for SARS-CoV-2 virus, including use of appropriate infection control protocols. Internal controls are included to assess for possible amplification inhibitors. If inhibition is detected, testing is repeated and if inhibition is confirmed the specimen is resulted as "Invalid". When an "Invalid" result occurs, it is recomm ended to wait 3 days before submitting a new spec imen for testing if clinically indicated. This assay has been approved by the FDA for use only under Emergency Use Authorization (EUA) in laboratories that have been CLIA-certified to perform moderate-complexity and high-complexity tests. The performance characteristics of this assay were verified by the Microbiology Laboratory at [facility], CLIA Accreditation #: [id number] and CAP Accreditation #: [id number]. COVID19 SARS Source GEAR GENERATOR SET UP OPERATOR Swab [place] MD PATINO [facility] COVID19 SARS Indication Pre-Out of OR Procedure [facility] Specimen (Source) Anatomical Collection Method Collection Time Re ceived Time Location / / Volume Laterality Nasopharyngeal Swab 08/09/2021 8:49 07/22 AM SURVEY INSTRUMENT OPERATOR 11:16 AM SURVEY INSTRUMENT OPERATOR Miya Matos DDS MICROBIOLOGY - GENERAL ORDER GARY Performing Organization Address City/State/ZIP Code Phon e Number [facility] Unless otherwise noted, [address] all lab tests performed by: Division of Pathology and Laboratory Medicine [address] [place] [address] EKG, 12-Lead (Scheduled) (02/14/2021) Specimen (Source) Anatomical Location Collection Method / Collectio n Time Received Time / Laterality Volume Narrative This result has an attachment that is no t available. Phil NAVARRO ECG ORDERABLES Performing Organization Address City/State/ZIP Code Phon e Number [facility] after 12/10/2020 Insurance Payer Benefit Plan / Subscriber ID Effective Dates Phone Addre ss Type Group AETNA MEDICARE AETNA MEDICARE [id number] 2021-Presen [address] [place] [address] Connie Arango Personal/Family Self 1940 [address] ([place]) [place] [address] [place], [place] (Work) [id number] Advance Directives Code Status Date Activated Date Inactivated Comments Full Code 11/09/2021 8:02 PM 11/10/2021 2:46 PM Full Code 02/16/2021 7:41 PM 02/17/2021 12:12 PM Full Code 09/11/2018 9:11 AM 09/12/2018 4:09 PM Full Code 09/24/2017 1:22 PM 09/25/2017 4:14 PM Care Teams Metalsmith Relationship Specialty Start Date End Date Opal Ly MD PCP - General 09/20/[address] [place] [id number] Neva Bloom FNP Nurse Practitioner 09/27/15 Faraz Luna MD Physician Radiation Oncology 04/05/[address] [place] [phone] (work)
--- OUTSIDE RECORDS SUMMARY | 2021-12-10 04:20 | XMS REPORT | Continuity of Care Document ---
:1940 Author Organization [facility] t Address [address] [place] [place] [address] Care Team Providers Name Role Phone [phone] Primary Care Physician Unavailable SYSTEM, NOT IN Attending Clinician Unavailable Lexii Mchugh Attending Clinician Grant BARRAZA Attending Clinician Inez Da Silva RN Attending Clinician Unavailable Stefanie WILL, L Attending Clinician Delfin Leonardo Attending Clinician Roxanna WILL W. Attending Clinician Unavailable Lizeth WILL Attending Clinician Unavailable Lexii Tomas MD Attending Clinician Lexii TOMAS Attending Clinician Unavailable Kennedy Peralta MD Attending Clinician Altaf BARRAZA Attending Clinician Unavailable Marjorie Quinn MD Attending Clinician Porsche Flanagan CRNA Attending Clinician Porsche Flores MA Attending Clinician Unavailable Yandel OCHOA Attending Clinician YANDEL Attending Clinician Unavailable Sanchez NAVARRO Attending Clinician SANCHEZ Attending Clinician Unavailable Phani WILL Attending Clinician Unavailable CARLO Attending Clinician Unavailable Carlo NICHOLS Attending Clinician Jessica WILL L Attending Clinician GRANT Attending Clinician Unavailable Lexii WATTS Attending Clinician Unavailable Demetris Quezada MA Attending Clinician Unavailable Kellie Day Attending Clinician Kellie Danielle DDS. Attending Clinician Marjorie DANIELLE Attending Clinician Unavailable Gregorio WILL, A Attending Clinician Kirstie BARRAZA Attending Clinician Sofi ISSA Attending Clinician Yuni DMD, S Attending Clinician CHAMBERS, S Attending Clinician Unavailable Nori Millan Attending Clinician Demetris CORTEZ Attending Clinician Unavailable Deborah WILL, Demetris Attending Clinician Unavailable Romel CHACON Attending Clinician Unavailable Laurita WILL, Lalo Attending Clinician Unavailable Liliana NICHOLS Attending Clinician Joanna BARRAZA Attending Clinician Marianela NAVARRO Attending Clinician Ashish Attending Clinician Unavailable Nori Hahn MA Attending Clinician Unavailable Kaycee NAVARRO Attending Clinician KAYCEE Attending Clinician Unavailable Lizeth BARRAZA, Mayela Attending Clinician LILIANA Attending Clinician Unavailable Lexii TOMAS Admitting Clinician Unavailable Payers Payer Name Policy Type Policy Number Effective Date Expiration Date S ource Problems Condition Condition Condition Status Onset Resolution Last Treating Co mments Source Name Details Category Date Date Treatment Clinician Date Prediabete Prediabete Disease Active M D s s 02-14 Anderso 00:00: n 00 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 Added automatic ally from request for surgery [id number] Lesion of Lesion of Disease Active Overview: tongue tongue 7- Formattin Anderso 00:00: g of this n 00 note might be different from the original. Added automatic ally from request for surgery [id number] Personal Personal Disease Active history of history of -27 An derso irradiatio irradiatio 00:00: n n n 00 Secondary Secondary Disease Active 2018-07 Overview: MD devi and 08-04 Formattin Anderso unspecifie unspecifie 00:00: g of this n d d 00 note malignant malignant might be neoplasm neoplasm different of lymph of lymph from the nodes of nodes of original. head, face head, face Recurrent and neck and neck . Not stageable . If not recurrent would be N1 Pre op Pre op Disease Active Overview: cardiovasc cardiovasc 09-09 Formattin Andestrellita chand 00:00: g of this n examinatio examinatio 00 note n n might be different from the original. Follows with Dr Alejandro # . Last seen while hospitali zed for urosepsis and 1-2 weeks after discharge . In scanned documents -LHC 06/2016 RCA:ok, PDA: 60%, LM ok, CFX: [...] testing is needed. 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 Added automatic ally from request for surgery [id number] Personal Personal Disease Active 2015- history of history of 1-14 An derso melanoma melanoma 00:00: n of skin of skin 00 Oral Oral Disease Active lichen lichen 7-16 Anderso planus planus 00:00: n 00 Lichen Lichen Disease Active planus planus Anderso n Leukoplaki Leukoplaki Disease Active M D a of oral a of oral Marcell rso mucosa mucosa n Gastroesop Gastroesop Disease Active M D hageal hageal Anderso reflux reflux n disease disease (aka GERD (aka GERD - - Gastro-eso Gastro-eso phageal phageal reflux reflux disease) disease) Hypothyroi Hypothyroi Disease Active M D dism dism Anderso n Gout Gout Disease Active Andestrellita rich Atrial Atrial Disease Active Overview: fibrillati fibrillati Jessee Andersagnieszka on on g of this n note might be different from the original. H/o PAF during both episodes of urosepsis , resolved. Personal Personal Disease Active history of history of An derso stroke stroke n Hypertensi Hypertensi Disease Active M D on on Anderso n H/O: H/O: Disease Active hysterecto hysterecto An derso my my n Diabetes Diabetes Disease Resolve 2021-02-14 2021-02-14 mellitus mellitus d 00:00:00 14:42:00 An derso without without n mention of mention of complicati complicati on, type on, type II or II or unspecifie unspecifie d type, d type, not stated not stated as as uncontroll uncontroll ed (aka ed (aka 250.00) 250.00) Allergies, Adverse Reactions, Alerts This patient has [...] Start Date Stop Date Quantity Comments Source Exposure to 2021-11-27 2021-12-07 Not sure MD Crowell SARS-CoV-2 (event) 00:00:00 08:38:00 Alcohol intake 2021-11-14 2021-11-14 Current MD Jose rich 00:00:00 00:00:00 non-drinker of alcohol (finding) Education 2021-02-14 2021-02-14 13 MD Crowell 00:00:00 00:00:00 Tobacco use and 2016-10-25 2016-10-25 Smokeless tobacco MD Crowell exposure 00:00:00 00:00:00 non-user Sex [birth year] At [birth year] F MD Cordova on 00:00:00 00:00:00 Smoking Status Start Date Stop Date Source Never smoked tobacco MD Crowell Medications Ordered Filled Start Stop Current Ordering Indication Dosage Frequency Signature Comments Components Source Medication Medication Date Date Medication? Clinician (SIG) Name Name acetaminoph Yes 1{capsu Take 1 M D en 325 mg 11-26 le} capsule by Marcell rsagnieszka cap 11:20: mouth as n 10 needed. aspirin 81 Yes 81mg Take 81 mg M D mg EC 11-26 by mouth Anderso tablet 11:20: daily. n 10 famotidine Yes 40mg Take 40 mg M D (PEPCID) 40 5-09 by mouth Marcell rso mg tablet 11:18: at n 47 bedtime. traMADol Yes Metastasis 50mg Take 1 M D (Ultram) 50 - to head and tablet (50 Anderso mg tablet 00:00: neck lymph mg) by n 00 node mouth every 8 (eight) hours as needed for severe pain. amoxicillin No Squamous 875mg Take 1 MD -clavulanat 4-19 04-27 cell tablet Jeronimo so e 00:00: 04:59 carcinoma (875 mg) n (Augmentin) 00 :00 of tongue by mouth 875 mg-125 twice mg per daily for tablet 7 days. rosuvastati Yes TAKE 1 MD n (CRESTOR) 4-15 TABLET BY And erso 5 mg tablet 00:00: MOUTH TWO n 00 TIMES A WEEK isosorbide 2020-07 Yes 30mg Take 30 mg M D mononitrate 02 by mouth Marcell rso (IMDUR) 30 00:00: daily. n mg 24 hr 00 tablet lidocaine 2020-07 Yes Squamous 10mL Swish and MD (lidocaine) 0-28 cell swallow 10 An derso 20 mg/mL 00:00: carcinoma mL every 4 n (2%) 00 of tongue (four) viscous hours as solution needed (oral mucositis) . nystatin 2020-07 Yes Squamous [id number] Swish and MD (MYCOSTATIN 0-26 cell swallow 5 And erso ) 100,000 00:00: carcinoma mL n units/mL 00 of tongue (500,000 suspension Units) 3 (three) times a day. gabapentin 2020-07 Yes Squamous 300mg Take 1 MD (Neurontin) 0-21 cell capsule Jeronimo so 300 mg 00:00: carcinoma (300 mg) n capsule 00 of tongue by mouth 3 (three) times a day. lidocaine 2020-07 No Squamous 10mL Swish and MD (lidocaine) 0-21 10-28 cell swallow 10 A nderso 20 mg/mL 00:00: 00:00 carcinoma mL every 4 n (2%) 00 :00 of tongue (four) viscous hours as solution needed (oral mucositis) . rosuvastati 2020-07 No 5mg Take 5 mg MD n (CRESTOR) 0-19 -19 by mouth 2 A nderso 5 mg tablet 09:49: 00:00 (two) n 03 :00 times a week MTH. aspirin 81 2020-07 No 81mg Take 81 mg MD mg EC 0-19 -19 by mouth Anderso tablet 09:49: 00:00 daily. n 03 :00 amoxicillin No Primary 875mg Take 1 MD -clavulanat 03-22 04- squamous tablet A nderso e 00:00: 00:00 cell (875 mg) n (AUGMENTIN) 00 :00 carcinoma by mouth 875 mg-125 of palatine twice mg per tonsil daily. tablet chlorhexidi Primary 15mL Swish and MD ne 03-22 squamous spit 15 mL Marcell rso (PERIDEX) 00:00: 04:59 cell twice n 0.12% 00 :00 carcinoma daily for solution of palatine 30 days. tonsil traMADol No Squamous 50mg Take 1 MD (Ultram) 50 7-30 -23 cell tablet (50 A nderso mg tablet 00:00: 00:00 carcinoma mg) by n 00 :00 of tongue mouth every 6 (six) hours as needed for moderate pain. UNABLE TO No 1{capsu Take 1 MD FIND 7- 07-20 le} capsule by Anderso 08:42: 00:00 mouth n 58 :00 daily. Med Name: Vision Alive MAX HYDROcodone No Squamous 1{tbl} Take 1 MD -acetaminop 7-06 02-28 cell tablet by An derso nicolle ([place]) 00:00: 00:00 carcinoma mouth n 7.5 mg-325 00 :00 of palate every 6 mg per (six) tablet hours as needed for moderate pain or severe pain (pain). dexamethaso 2020- No Oral lichen 1mg Take 10 mL MD ne 04-18-28 planus (1 mg) by Anderso (DECADRON) 00:00: 00:00 mouth n 0.5 mg/5 mL 00 :00 twice solution daily. Swish and spit. May discontinu e once flare-up subsides. May resume if irritation returns. losartan 2020- No TK 1 T PO MD (COZAAR) 25 04-12- D IN THE And erso mg tablet 00:00: 00:00 MORNING n 00 :00 atorvastati 2020- No TK 1 T PO MD n (LIPITOR) 04-12- D HS Anderso 10 mg 00:00: 00:00 n tablet 00 :00 isosorbide 2020- No TK 1 T PO M D mononitrate 12-10- D Anderso (IMDUR) 30 00:00: 00:00 n mg 24 hr 00 :00 tablet dexamethaso 2020- Oral lichen 1mg Take 10 mL MD ne 12-06 planus (1 mg) by Andersagnieszka (DECADRON) 00:00: 00:00 mouth n 0.5 mg/5 mL 00 :00 twice solution daily. Swish and spit. May discontinu e once flare-up subsides. May resume if irritation returns. hydrALAZINE 2018-07- No 1{tbl} Take 1 M D (APRESOLINE - tablet by An derso ) 10 mg 00:00: 00:00 mouth n tablet 00 :00 twice daily. metoprolol Yes 50mg Take 50 mg M D tartrate 7-11 by mouth Anderso (LOPRESSOR) 00:00: twice n 50 mg 00 daily. tablet RANEXA 500 2017-07- No 1{tbl} Take 1 MD mg 12 hr 08-27-20 tablet by Jeronimo so tablet 00:00: 00:00 mouth n 00 :00 twice daily. omeprazole 2017-07- No 1{capsu Take 1 M D (PriLOSEC) 08-26- le} capsule by An derso 40 MG 00:00: 00:00 mouth n capsule 00 :00 daily. levothyroxi 2016-07 Yes 1{tbl} Take 1 MD ne 0-24 tablet by Anderso (SYNTHROID, 00:00: mouth n LEVOTHROID) 00 daily. 75 mcg tablet magnesium 2015-0 Yes 400mg Take 400 MD oxide 7-14 mg by Jose (MAOX) 400 00:00: mouth n mg tablet 00 daily. nitroglycer Yes .4mg Take 0.4 MD in 7-14 mg by Jose (NITROSTAT) 00:00: mouth as n 0.4 mg SL 00 needed for tablet chest pain. Call 911 if no relief after 3 doses Immunizations Ordered Immunization Filled Immunization Date Status Commen ts Source Name Name Pfizer SARS-CoV-2 2021-02-25 Completed MD Faith rson Vaccination 00:00:00 Pfizer SARS-CoV-2 2021-02-02 Completed MD Faith rson Vaccination 00:00:00 Vital Signs Vital Name Observation Time Observation Value Comments Source Systolic blood pressure 2021-12-06 14:43:02 158 mm[Hg] MD Crowell Diastolic blood pressure 2021-12-06 14:43:02 90 mm[Hg] MD Crowell Heart rate 2021-12-06 14:43:02 66 /min MD Jeronimo santillan Body temperature 2021-12-06 14:43:02 36.72 Dena MD Kellie espinosa Respiratory rate 2021-12-06 14:43:02 18 /min MD Kellie espinosa Oxygen saturation in 2021-12-06 14:43:02 98 /min MD Crowell Arterial blood by Pulse oximetry Body weight 2021-11-26 16:13:00 66.6 kg MD Jeronimo santillan BMI 2021-11-26 16:13:00 25.69 kg/m2 MD Jeronimo santillan Body height 2021-11-10 03:25:00 161 cm MD Jeronimo santillan Procedures Procedure Date / Time Performed Performing Clinician [facility] e MRI HEAD/NECK SIMULATION W WO 2021-12-07 16:14:17 Prince Watts MD CONTRAST (RO) POC CREATININE 2021-12-07 14:49:[address] SOFT TISSUE NECK W CONTRAST 2021-12-06 17:39:01 Prince Watts MD, MD COVID-19 (SARS-COV-2) PCR 2021-12-05 18:43:00 Faraz Burns MD ASYMPTOMATIC PATHOLOGY SURGICAL 2021-11-09 20:41:00 Luis Miguel Tomas MD And erson INTERPRETATION LEVEL V NECK DISSECTION 2021-11-09 19:14:00 Luis Miguel Tomas TYPE AND SCREEN 2021-11-09 18:50:00 Tremaine Quinn MD ABORH 2021-11-09 18:50:00 Tremaine Quinn MD ANTIBODY SCREEN 2021-11-09 18:50:00 Tremaine Quinn MD TMP INTERPRETATION ANTIBODY 2021-11-09 18:50:00 Tremaine Quinn MD SCREEN NEGATIVE CLOT EXPIRATION DATE 2021-11-09 18:50:00 Tremaine Quinn MD Marcell rson POC GLUCOSE SCREEN 2021-11-09 16:01:00 Luis Miguel Tomas MD And erson BLOOD UREA NITROGEN 2021-11-06 20:13:00 Prakash Newell MD COMPLETE BLOOD COUNT W/ 2021-11-06 20:13:00 Prakash Newell MD nderson DIFFERENTIAL SERUM CREATININE 2021-11-06 20:13:00 Prakash Newell MD ELECTROLYTE PANEL 2021-11-06 20:13:00 [facility], RANDOM 2021-11-06 20:13:00 Prakash Newell MD HEMOGLOBIN A1C 2021-11-06 20:13:00 Prakash Newell MD SERUM CREATININE 2021-11-06 20:13:00 Prakash Newell MD .GLOMERULAR FILTRATION RATE 2021-11-06 20:13:00 Prakash Newell MD Results CBC 2021-11-06 20:13:00 Prakash Newell MD MANUAL DIFFERENTIAL 2021-11-06 20:13:00 Prakash Newell MD, MD COVID-19 (SARS-COV-2) PCR 2021-11-06 17:32:00 Harleen Tomas MD ASYMPTOMATIC US HEAD NECK SOFT TISSUE 2021-10-24 16:10:35 Vasile Mead MD US FINE NEEDLE ASPIRATION 2021-10-24 16:10:35 Vasile Mead MD CYTOLOGY IMAGE-GUIDED FNA 2021-10-24 14:16:00 Luis Miguel Tomas MD INTERPRETATION CT SOFT TISSUE NECK W CONTRAST 2021-10-17 19:48:40 Karyn Bradford MD POC CREATININE 2021-10-17 18:33:00 Naresh Bradford MD BLOOD UREA NITROGEN 2021-10-17 18:08:00 Naresh Bradford MD [facility] SERUM CREATININE 2021-10-17 18:08:00 Naresh Bradford MD FREE THYROXINE 2021-10-17 18:08:00 Naresh Bradford MD THYROID STIMULATING HORMONE 2021-10-17 18:08:00 Naresh Bradford MD SERUM CREATININE 2021-10-17 18:08:00 Naresh Bradford MD .GLOMERULAR FILTRATION RATE 2021-10-17 18:08:00 Naresh Bradford MD COVID-19 (SARS-COV-2) 2021-08-09 14:49:00 Miya Matos MD PCR-ASYMPTOMATIC CT SOFT TISSUE NECK W CONTRAST 2021-08-09 14:21:29 Petar, Prince Crowell POC CREATININE 2021-08-09 13:33:00 Petar, Prince Crowell THYROID STIMULATING HORMONE 2021-08-09 12:50:00 Petar, Prince Crowell FREE THYROXINE 2021-08-09 12:50:00 Petar, Prince Crowell BLOOD UREA NITROGEN 2021-08-09 12:50:00 Petar, Prince Decker [facility] SERUM CREATININE 2021-08-09 12:50:00 Petar, Prince Crowell SERUM CREATININE 2021-08-09 12:50:00 Petar, Prince Crowell .GLOMERULAR FILTRATION RATE 2021-08-09 12:50:00 Petar, Prince Crowell MD COVID-19 (SARS-COV-2) PCR 2021-07-16 18:04:00 Harleen Tomas MD ASYMPTOMATIC CT SOFT TISSUE NECK W CONTRAST 2021-04-11 12:07:00 Mar Brennan MD POC CREATININE 2021-04-11 11:40:00 Provider, Mauricio rich MD COVID-19 (SARS-COV-2) PCR 2021-04-05 14:48:00 Harleen Tomas MD ASYMPTOMATIC COVID-19 (SARS-COV-2) PCR 2021-03-19 16:24:00 Juan Luis Morrissey MD ASYMPTOMATIC POC GLUCOSE SCREEN 2021-02-17 12:58:00 Luis Miguel Tomas MD And erson POC GLUCOSE SCREEN 2021-02-17 01:12:00 Luis Miguel Tomas MD And erson POC GLUCOSE SCREEN 2021-02-16 21:12:00 Luis Miguel Tomas MD And erson POC GLUCOSE SCREEN 2021-02-16 20:06:00 Luis Miguel Tomas MD And erson PATHOLOGY SURGICAL 2021-02-16 18:35:14 Luis Miguel Tomas MD And erson INTERPRETATION LASER ABLATION OF ORAL CAVITY 2021-02-16 17:27:00 Kellie Tomas MD APPLICATION OF SKIN SUBSTITUTE 2021-02-16 17:27:00 Luis Miguel Tomas MD GRAFT TO MOUTH EXCISION OF LESION OF MUCOSA 2021-02-16 17:27:00 Harleen Tomas MD AND SUBMUCOSA OF VESTIBULE OF MOUTH, WITHOUT CLOSURE MAXILLECTOMY, WITHOUT ORBITAL 2021-02-16 17:27:00 Kellie Tomas MD EXTENERATION TAKING IMPRESSION FOR ORAL 2021-02-16 17:27:00 Juan Luis Morrissey MD SURGICAL SPLINT AND CUSTOM PREPARATION OF SPLINT POC GLUCOSE SCREEN 2021-02-16 16:00:00 Luis Miguel Tomas MD And erson HC 2019-NCOV COVID-19 2021-02-14 20:48:00 Luis Miguel Tomas MD COMPLETE BLOOD COUNT W/ 2021-02-14 17:49:00 Khloe Ghosh MD nderson DIFFERENTIAL ELECTROLYTE PANEL 2021-02-14 17:49:00 Khloe Ghosh MD n GLUCOSE, RANDOM 2021-02-14 17:49:00 Khloe Ghosh MD TYPE AND SCREEN 2021-02-14 17:49:00 Khloe Ghosh MD HEMOGLOBIN A1C 2021-02-14 17:49:00 Khloe Ghosh MD Results CBC 2021-02-14 17:49:00 Khloe Ghosh MD MANUAL DIFFERENTIAL 2021-02-14 17:49:00 Khloe Ghosh MD Jeronimo son ABORH 2021-02-14 17:49:00 Khloe Ghosh MD ANTIBODY SCREEN 2021-02-14 17:49:00 Khloe Ghosh MD CLOT EXPIRATION DATE 2021-02-14 17:49:00 Khloe Ghosh MD rson TMP INTERPRETATION ANTIBODY 2021-02-14 17:49:00 Khloe Ghosh MD SCREEN NEGATIVE EKG, 12-LEAD (SCHEDULED) 2021-02-14 00:00:00 Khloe Ghosh MD BLOOD UREA NITROGEN 2021-02-06 12:50:00 Naresh Bradford MD SERUM CREATININE 2021-02-06 12:50:00 Naresh Bradford MD SERUM CREATININE 2021-02-06 12:50:00 Naresh Bradford MD .GLOMERULAR FILTRATION RATE 2021-02-06 12:50:[address] SOFT TISSUE NECK W CONTRAST 2021-02-06 12:17:55 Karyn Bradford MD POC CREATININE 2021-02-06 11:30:00 Naresh Bradford MD Plan of Care Planned Activity Planned Date Details Comments Source Future Scheduled Test 2021-03-25 00:00:00 COVID-19 Vaccination (Jaclyn Crowell - Pfizer risk 4-dose series) [code = COVID-19 Vaccination (3 - Pfizer risk 4-dose series)] Encounters Start End Encounter Admission Attending Care Care Encounter Source Date/Time Date/Time Type Type Clinicians Facility Department ID 2021-02-19 Outpatient [facility] ANABELL HUNG [id number] 12:17:39 PROVIDER Art rich 2021-11-09 2021-11-10 Outpatient DAPHNE TOMAS MDA HN Surgery [id number] 10:21:00 12:41:00 LUIS MIGUEL 2021-11-06 2021-11-06 Outpatient PRAKASH WINTERS MDA, MDA [id number] 15:04:55 23:59:00 Art rich 2021-11-06 2021-11-06 Outpatient DAPHNE BRADFORD MDA MDA [id number] 12:51:01 15:36:27 NARESH rich 2021-11-06 2021-11-06 Outpatient DAPHNE TOMAS MDA, MDA [id number] 09:25:01 12:45:41 , LUIS MIGUEL rich 2021-11-06 2021-11-06 Outpatient EL SANCHEZ, MDA MDA [id number] 12:23:42 12:34:14 NARESH rich 2021-10-24 2021-10-24 [facility] [id number] 08:19:36 08:19:36 , LUIS MIGUEL rich 2021-10-22 2021-10-22 [facility] MDA [id number] 10:27:06 23:59:00 , LUIS MIGUEL rich 2021-10-17 2021-10-17 Outpatient EL SANCHEZ, MDA MDA [id number] 13:11:51 23:59:00 NARESH rich 2021-10-17 2021-10-17 Outpatient EL SANCHEZ, MDA MDA [id number] 12:45:00 13:10:00 NARESH rich 2021-08-13 2021-08-13 [facility] MDA [id number] 09:30:14 23:59:00 , LUIS MIGUEL rich 2021-08-10 2021-08-10 Outpatient EL CARLO, MDA MDA [id number] 09:31:13 23:59:00 MIYA rich 2021-08-09 2021-08-09 Outpatient EL FARAZ BURNS MDA MDA [id number] 11:30:00 23:59:00 Art rich 2021-08-09 2021-08-09 Outpatient EL PETAR, MDA MDA [id number] 06:57:55 11:29:00 PRINCE rich 2021-08-09 2021-08-09 [facility] MDA [id number] 08:43:52 08:52:23 , LUIS MIGUEL rich 2021-08-09 2021-08-09 Outpatient EL PETAR, MDA MDA [id number] 06:33:54 06:56:00 PRINCE rich 2021-07-17 2021-07-17 Outpatient EL CAMPOS-JOSIE MDA MDA [id number] 09:55:11 23:59:00 ON, NAVJOT Jeronimo rich 2021-07-16 2021-07-16 Outpatient EL GILLENWATER MDA MDA [id number] 11:42:15 16:44:43 , LUIS MIGUEL rich 2021-06-12 2021-06-12 Outpatient EL GILLENWATER MDA MDA [id number] 07:25:51 23:59:00 , LUIS MIGUEL rich 2021-06-11 2021-06-11 Outpatient EL GILLENWATER MDA MDA [id number] 12:05:45 23:59:00 , LUIS MIGUEL rich 2021-06-10 2021-06-10 Outpatient EL GILLENWATER MDA MDA [id number] 12:17:14 23:59:00 , LUIS MIGUEL rich 2021-06-08 2021-06-08 [facility] MDA [id number] 05:45:19 23:59:00 , LUIS MIGUEL rich 2021-06-07 2021-06-07 [facility] MDA MDA [id number] 12:32:46 23:59:00 , LUIS MIGUEL rich 2021-06-07 2021-06-07 Outpatient EL FARAZ BURNS MDA MDA [id number] 10:25:47 12:31:00 Art rich 2021-06-06 2021-06-06 [facility] MDA [id number] 07:28:53 23:59:00 , LUIS MIGUEL rich 2021-06-05 2021-06-05 Outpatient EL GILLENWATER MDA MDA [id number] 15:32:06 23:59:00 , LUIS MIGUEL rich 2021-06-04 2021-06-04 Outpatient EL GILLENWATER MDA MDA [id number] 10:20:10 23:59:00 , LUIS MIGUEL rich 2021-06-01 2021-06-01 Outpatient EL GILLENWATER MDA MDA [id number] 07:12:43 23:59:00 , LUIS MIGUEL rich 2021-05-31 2021-05-31 Outpatient EL GILLENWATER MDA MDA [id number] 15:41:21 23:59:00 , LUIS MIGUEL rich 2021-05-31 2021-05-31 Outpatient EL FARAZ BURNS MDA MDA [id number] MD 14:44:07 15:40:00 Art rich 2021-05-30 2021-05-30 Outpatient EL GILLENWATER MDA MDA [id number] MD 18:00:20 23:59:00 , LUIS MIGUEL rich 2021-05-29 2021-05-29 Outpatient EL G[facility]ENW[facility] MDA MDA [id number] MD 18:51:20 23:59:00 , LUIS MIGUEL rich 2021-05-28 2021-05-28 Outpatient EL FARAZ BURNS MDA MDA [id number] MD 15:43:36 23:59:00 Art rich 2021-05-28 2021-05-28 Outpatient EL GILLENWATER MDA MDA [id number] MD 13:23:27 15:42:00 , LUIS MIGUEL rich 2021-05-25 2021-05-25 Outpatient EL GILLENWATER MDA MDA [id number] 07:59:51 23:59:00 , LUIS MIGUEL rich 2021-05-24 2021-05-24 Outpatient EL FARAZ BURNS MDA MDA [id number] MD 09:20:41 23:59:00 Art rich 2021-05-23 2021-05-23 Outpatient EL GILLENWATER MDA MDA [id number] MD 06:23:00 23:59:00 , LUIS MIGUEL rich 2021-05-22 2021-05-22 Outpatient EL GILLENWATER MDA MDA [id number] 07:26:16 23:59:00 , LUIS MIGUEL rich 2021-05-21 2021-05-21 Outpatient EL GILLENWATER MDA MDA [id number] MD 19:11:21 23:59:00 , LUIS MIGUEL rich 2021-05-18 2021-05-18 Outpatient EL GILLENWATER MDA MDA [id number] MD 17:48:07 23:59:00 , LUIS MIGUEL rich 2021-05-17 2021-05-17 Outpatient EL GILLENWATER MDA MDA [id number] 14:30:10 23:59:00 , LUIS MIGUEL rich 2021-05-17 2021-05-17 Outpatient EL FARAZ BURNS MDA MDA [id number] MD 08:57:03 14:29:00 Art o layla 2021-05-16 2021-05-16 Outpatient EL GENOVEVA MDA MDA [id number] MD 18:05:53 23:59:00 , LUIS MIGUEL Cordova o layla 2021-05-15 2021-05-15 Outpatient EL MARIOWATER MDA MDA [id number] MD 18:40:52 23:59:00 , LUIS MIGUEL [place] o layla 2021-05-14 2021-05-14 Outpatient EL MDA MDA [id number] MD 18:32:15 23:59:00 Art o n 2021-05-11 2021-05-11 Outpatient EL MDA MDA [id number] MD 16:09:34 23:59:00 Art o n 2021-05-10 2021-05-10 Outpatient EL MDA MDA [id number] MD 13:16:10 23:59:00 Art o n 2021-05-10 2021-05-10 Outpatient EL FARAZ BURNS MDA MDA [id number] MD 10:34:34 13:15:00 Art o n 2021-05-09 2021-05-09 Outpatient EL MDA MDA [id number] MD 15:26:22 23:59:00 Art o n 2021-05-09 2021-05-09 Outpatient EL FARAZ BURNS MDA MDA [id number] MD 15:26:10 23:59:00 Art o n 2021-05-08 2021-05-08 Outpatient EL MDA MDA [id number] MD 10:43:05 23:59:00 Art o n 2021-05-08 2021-05-08 Outpatient EL FARAZ BURNS MDA MDA [id number] MD 09:28:04 10:42:00 Art o n 2021-05-07 2021-05-07 Outpatient EL MDA MDA [id number] MD 19:22:44 23:59:00 Art o n 2021-05-04 2021-05-04 Outpatient EL MDA MDA [id number] MD 18:05:16 23:59:00 Art o n 2021-05-03 2021-05-03 Outpatient EL MDA MDA [id number] MD 19:23:00 23:59:00 Art o n 2021-05-02 2021-05-02 Outpatient EL MDA MDA [id number] MD 15:33:13 23:59:00 Art o n 2021-05-02 2021-05-02 Outpatient EL FARAZ BURNS MDA MDA [id number] MD 13:53:20 15:32:00 Art o n 2021-05-02 2021-05-02 Outpatient EL MDA MDA [id number] MD 11:22:03 13:52:00 Art o n 2021-05-02 2021-05-02 Outpatient EL CARLO, MDA MDA [id number] MD 07:36:18 11:21:00 MIYA Art o n 2021-04-30 2021-04-30 Outpatient EL MDA MDA [id number] MD 06:00:00 23:59:00 Art o layla 2021-04-12 2021-04-12 Outpatient EL FARAZ BURNS MDA MDA [id number] MD 09:00:56 23:59:00 Art o layla 2021-04-12 2021-04-12 Outpatient EL YUNI, MDA MDA [id number] MD 07:38:49 08:59:00 JUAN LUIS rich 2021-04-11 2021-04-11 Outpatient EL MDA MDA [id number] MD 05:58:55 23:59:00 Art o layla 2021-04-06 2021-04-06 Outpatient EL YUNI, MDA MDA [id number] MD 08:40:49 23:59:00 JUAN LUIS rich 2021-04-05 2021-04-05 Outpatient EL FARAZ BURNS MDA MDA [id number] 08:00:00 23:59:00 Art o layla 2021-04-05 2021-04-05 Outpatient EL DEBORAH, MDA MDA [id number] MD 09:38:58 09:52:27 ADAMS rich 2021-04-05 2021-04-05 Outpatient EL FARAZ BUNRS MDA MDA [id number] 07:31:00 07:59:00 Art o layla 2021-03-22 2021-03-22 Outpatient EL CHAMBERS, MDA MDA [id number] 10:46:14 23:59:00 JUAN LUIS rich 2021-03-19 2021-03-19 Outpatient EL LEYLAENWATER MDA MDA [id number] 11:20:01 11:24:39 , LUIS MIGUEL rich 2021-03-12 2021-03-12 Outpatient EL GILLENWATER MDA MDA [id number] 10:15:00 23:59:00 , LUIS MIGUEL rich 2021-03-12 2021-03-12 Outpatient EL YUNI, MDA MDA [id number] 07:59:25 10:14:00 JUAN LUIS rich 2021-02-16 2021-02-17 [facility] [id number] 10:32:00 10:04:00 , LUIS MIGUEL rich 2021-02-14 2021-02-14 Outpatient EL KAYCEE, MDA MDA [id number] 12:40:57 23:59:00 KHLOE rich 2021-02-14 2021-02-14 Outpatient EL SANCHEZ, MDA MDA [id number] 11:14:11 16:19:35 NARESH rich 2021-02-14 2021-02-14 [facility] [id number] 11:13:49 16:19:28 , LUIS MIGUEL rich 2021-02-14 2021-02-14 Outpatient EL SANCHEZ, MDA MDA [id number] 15:40:49 15:52:59 NARESH rich 2021-02-14 2021-02-14 Outpatient EL BAMBIO, MDA MDA [id number] 12:38:10 12:39:00 KHLOE rich 2021-02-14 2021-02-14 Outpatient EL LILIANA, MDA MDA [id number] 08:31:43 12:37:00 REJI rich 2021-02-06 2021-02-06 Outpatient EL SANCHEZ, MDA MDA [id number] 07:29:09 23:59:00 NARESH rich 2021-02-06 2021-02-06 Outpatient EL GILLENWATER MDA MDA [id number] 08:01:49 09:54:33 , LUIS MIGUEL rich 2021-02-06 2021-02-06 Outpatient DAPHNE BRADFORD MDA MDA [id number] MD 05:57:30 07:28:00 NARESHJAREK Deviantoinette rich 2020-03-14 2020-03-14 Outpatient DAPHNE BRADFORD MDA MDA [id number] 00:00:00 00:00:00 NARESH Deviantoinette rich 2020-03-14 2020-03-14 Outpatient DAPHNE BRADFORD MDA MDA [id number] 00:00:00 00:00:00 NARESH Deviantoinette rich 2020-03-14 2020-03-14 Outpatient DAPHNE TOMAS MDA MDA [id number] MD 00:00:00 00:00:00 , LUIS MIGUEL rich Results Test Description Test Time Test Comments Results Result Comments Source POC Creatinine 2021-12-07 14:52:45 Test Item Value Reference Range Interpretation Comme nts POC Crea (test code = 0.9 mg/dL 0.6-1.3 Medica tions, especially 93218-1) hydroxyurea or supplements, such as ascorba te, can interfere with test results causing a false ly and significantly h igher result than expected. If a problem is suspected wi th a patient's resul t, a sample should be sent to the laboratory for confirmatory testing. Method description: The i-STAT is a n analyzer used for in vit ro quantification of various analytes in who le blood. The device uses a s nellie disposable cart ridge which contains microf abricated sensors, a haily bration solution, fluid ics system, and a waste sharri mber. Each test cartridge contains chemically sens itive biosensors on a silicon chip that are config ured to perform specifi c tests. The microfabricated sensors measure analyte concentration b y an electrochemical assay. POC eGFR-AA (test code 71 See_Comment Mattie l eGFR >= 60 = 11675-5) mL/min/1.73 m2 The eGFR is calculated usin g the CKD-EPI equation. The e GFR declines with age. eGFR <60 mL/min/1.73 m2 is considered as "decreased" This equation should only be used for patients 18 and older. According to th e National Kidney Foundati on's Kidney Disease Outcome Quality Initiative (KDO QI) classification and 2012 Kidney Disease Improving Global Outcomes (KDIGO) Clinical Practi ce Guideline, the stage of CK D should be categorized bas ed on estimated GFR. Stage Description GFR mL/min/1.73 m21 Kidney breanne ge with normal or high GFR >=902 Kidney damage w ith mild decrease in GFR 60-893a Mild to moderat e decrease in GFR 45-593b Moderate to severe decrease in GFR 30-444 Severe d ecrease in GFR 15-295 K idney failure <15 (or ramin lysis) [Automated mess age] The system which ge nerated this result transmit bertha reference range: >=60 mL/ min/1.73 m2. The reference r jaskaran was not used to interpr et this result as mattie l/abnormal. POC eGFR-IMELDA (test code 61 See_Comment Norm al eGFR >= 60 = 93184-9) mL/min/1.73 m2 The eGFR is calculated usin g the CKD-EPI equation. The e GFR declines with age. eGFR <60 mL/min/1.73 m2 is considered as "decreased" This equation should only be used for patients 18 and older. According to th e National Kidney Foundati on's Kidney Disease Outcome Quality Initiative (KDO QI) classification and 2012 Kidney Disease Improving Global Outcomes (KDIGO) Clinical Practi ce Guideline, the stage of CK D should be categorized bas ed on estimated GFR. Stage Description GFR mL/min/1.73 m21 Kidney breanne ge with normal or high GFR >=902 Kidney damage w ith mild decrease in GFR 60-893a Mild to moderat e decrease in GFR 45-593b Moderate to severe decrease in GFR 30-444 Severe d ecrease in GFR 15-295 K idney failure <15 (or ramin lysis) [Automated mess age] The system which ge nerated this result transmit bertha reference range: >=60 mL/ min/1.73 m2. The reference r jaskaran was not used to interpr et this result as mattie l/abnormal. POC Clean Dev (test Yes code = 6672) Performing Lab (test [facility] code = 48324) [facility], [address], [place] [address]; Point of Care L ab Director: MD MD Socrates OwusuMD COVID-19 (PAUL-CoV-2) PCR [id number] 11:28:59 Test Item Value Reference Interpretation Comments Range COVID19 SARS Pre-Radiation Therapy Indication (test code = 47076) COVID19 SARS Result Not Detected Not Detected (test code = 65031-2) COVID19 SARS SARS-CoV-2 NOT Detected. Interpretation (test Reference Range: Not code = 57481) Detected Methodology: The Reinoso RealTime SARS-CoV-2 assay is a qualitative real-time reverse cigarette catcher polymerase chain reaction (energy rater-PCR) test to detect RNA from SARS-CoV-2 in nasal, nasopharyngeal and oropharyngeal swabs from patients with signs and symptoms of infection who are suspected of COVID-19 by their health care provider. The Reinoso RealTime SARS-CoV-2 performed on the PublishThis000 System is a dual target assay with primers and probes for the RdRp and N genes. Results must be interpreted within the context of all relevant clinical and laboratory findings, and epidemiological risk factors. Positive results are indicative of the presence of SARS-CoV-2 RNA; clinical correlation with patient history and other diagnostic information is necessary to determine patient infection status. Positive results do not rule out bacterial infection or co-infection with other viruses. Negative results do not preclude SARS-CoV-2 infection and should not be used as the sole basis for patient management decisions. The Reinoso RealTime SARS-CoV-2 assay is for in vitro diagnostic use under FDA Emergency Use Authorization only. Testing is limited to laboratories certified under the Clinical Laboratory Improvement Amendments of 1988 (CLIA), 42U.S.C. 263a, to perform high complexity tests. The Test was performed by the CLIA-certified, high-complexity Molecular Diagnostics Laboratory (MDL) at [facility] under the Food and Drug Administration (FDA) s Emergency Use Authorization. Factsheet for patients: https://www.mdanderson.org/ AbbottFactSheetPatientsFact sheet for healthcare providers: https://www.mdanderson.org/ AbbottFactSheetHCP Test performed by:[facility] Diagnostic [address] [place] [address] [facility] Hgsjgwtrrtprdq2518-90-75 03:37:11 Test Item Value Reference Range Interpretation Comments Submitted Clinical History [id number] (test code = 87952) mbGFuZzEwMzNcZnRuYm pcdWMxIHtccnRmMVxzc 4KcG8TmHxLjPGjmwyWa XGRlZmxhbmcxMDMzXGZ 0bmJqXHVjMVxkZWZmMH diBj8jnJThsRegTaPuO VZwu0yvdwAXracphFu7 v6oiPIPkFbM5rGHcFVm bO9pnvoBlnURuISNnXR z8iJ43LFBpeZ0lnMLkY AhqnfQyVbZ2SPcbPDUm BsF7JGHtqLVgTVPdI7o yZWQwXGdyZWVuMFxibH NrNFQ6lSgil6W7xMLms GVldHtcZjBcZnMyMiBO j4YcGJr1sElaU5JaSKY bEkE4xKVcDAOpQLvwOS LzBUFojkC2pA99CJmqy kJ8gNRsv3Ltf31my069 jR8srGFuWBJ3VBYoEKL hnSJaBUMqZMC5LFRhmH LpE2riCWObMY9poiveY YsiWRdcMBOrrPB9LEMt kRAmA4OlDYWoBHumGDL eaml4KpMyRi8mbXQigK msZLsyw3ugb0caxPWpO jl7EXLeGiHwMosuHOkp j7Hvo8dhMCUayu8jFIB 9pQPgfTmxh5D9tHNyEW KjfHQmvpGrMUWtLaZ4A VegTO4fwp81KQByKMH3 sl8uaJAfqZtojaKnmCS sQTmkW2GjIRTfm585LM BrO6PlPTGud0I7clXlU zYsOFNgwFW6heR4NQDz QUs3rBWlpjQ0hbDtgUR mB7megR6wWNVdJY9zhh pcs9ebTOhuNLrcGMEwa HY4uiO5MAAniBGjL4Vt bX8aFZYeHHsnDMKrpgb 9KxBgBb4znVTcnEuuFO xzYmtwYWdlXHBnbmNvb nRccGduZGVjXHBsYWlu XHBsYWluXGYwXGZzMjR qtHwvgHdebZ2zKfAzKd NxZZyuPB3qHOBpJ2sdb HPhUDIfPYPqD7ryMwOb sF4viBeqAEjgdrJoVH2 bjLScqHRpsSJklC6qdE VhZCBhbmQgbmVjayBse O7fjAMap2LoFCcTOplm LZ0rcJPvQJRhkRQjk0O gDGNlsRyzN3YdG5qkn4 1dHG0wIILrbvc5SMRmN zAyLjldXHBsYWluXGYx XGZzMjJcbGFuZzEwMzN caGljaFxmMVxkYmNoXG CbQWlgP7ogSkHyGjPbC ijxOTJ8rI== Diagnosis (test code = 34) i9tgoNGiMSUnxFD0XxG aPMNiu0kzb1NhnUBesP KhLCisfKQnezBfhk50s LG8wU61VG3hXEFwKaF1 GXRqkyK7Axb8EOXjKZP lxCTeB638d6des3aasz EzyPV2HBIxKPMyF5EgG N7cXMKecAFwL50pgKXm VDD4CDIbIKLnvYDmZIM hUKE7TGOaeRYkT4toDE IwWZ0rkudrPKmpPHmwC ZBbqWO9ARThzBZtF3Cg UZIzTCsjEOPytne9DhO xCj3toRXpkUbrZDrkFC JkXHBsYWluXGZzMjBcY 0SjSHD6RT5iE9clXTXe S8m1MMXfxIxuiUNwPUY bVGOvq8JeS9Vxm17jlR I4IQzsNtF2PQFndwfov MoaMBinjR65JxBcM0Ja GU1ZOHTYJRBWILDmQ7E QJS2OLHXsW0UMW8cFG7 0HAWuMBx4RYfoHNnWQZ T1QYM2IIMknCwWQMj9M QVNDVUxBUiBBTkQgQUR PXU6XWYVJRNFAZLTVJY Nxmfl0UBOoNNI6TOM7J IUjNwU2kP6xrtQnrNha OiAyIGNtLlxwYXIgVHd hHBp9oHJwHV2cJIRjMJ QxFAyniKq3ASWtr6Jqd YQiq7VheFAgDZRgPLGr i08sTH62YIQfwkzzELH kXHBhciBNRFcvRkFTMl xwYXJccGFyfQ== Comment (test code = 9835) f4ynzDRqOUTmeQH3MtG bXNJuu0ely6PfdPCozP ZjCRxgnSBynfKuum40f TD5yG90JW8lMVRzElZ0 EXMhfpY7Dxt6CWOhATD pzXWbU390a9zmy1jyke EizVK2bSpbREQqzemkP gS9GRsaDOMybjbrBOs6 CEizMKRppAF4WKQcgBN hP7CjNFTaEF8avij7JR G0EQjiIEEmTrJ5RKXdi EUfSECnvIirLDexw184 WIM0EyIfBOGpbkHvmMl scG5qAcDhJXKCeBOjdE KzqoPhTDOyKIzon1Anu SByZXByZXNlbnRzIGEg C41qgYauxOGyzAWrRMH qTQMcPAKitI8toXMbh9 ZaVJevrNxxQ6Lnn0RsB Li5jwUbp5IojVRwkNFz wpVic70crJ3ewFXknT1 dTMAzMAX3wfPqpX1jTS 9bwrGbZHY2qsPtVGRdY FxwYXJ9 Gross Description (test k3acdRIpLCAspBUNDGv code = [id number]) wMVxhbnNpXHNwbHRwZ3 OwamnrPWnmEX9xGN0nk SphxORjlYUzMC3YDXMh ZmYxXHBhcGVydzEyMjQ mKLTvaXOshPL7HSNnMT 1hcmdsMTgwMFxtYXJnc iK7MBGuxKTgA5IeHGMa VW7khxsbZMS8AUwtrZ4 gvnBMYpfcMk0muQCbuR tcZjFcZmNoYXJzZXQwX PEtoDecAZGcHGj0vT7O UiwzF39nz1C5Bat4JSZ eBCCfS4HfCO1mBTTwmF MuI21XCtegPOO3NXZMI pqsWXAoQV9Ou9hvAUUu hKKjYBP7WYlioBIcGQC gNLLvSLf2PRZyRXscxN AdUV2xmEuxIfuicWuqz 2VjdCBcXGlkIDUxMDAy RGkcTTNsKU6NOrNfQHB 3LRQhZXCoYAo0UOy5WJ 7XOpKfZKNjXOI9ANG3U BGnIOm7CPhiUT4VWZEe PlJ5MuE2HnAtSZSgOWg aLDc1ONWnWEiuJFNlnT FsIFxcZnMgMTAgXFxmY gGwEUKaGYsypiT0FWQb YWluXGJcZnMyMCBBOlx aFGMaAUjhhIlhkN9hNI RgO46cp0DEb6TgAY3VG Vq1ehUclwowbU7pBWPy oaNzPByxdCYvN4fxEpb jZjFcZnMyMCBOZWNrLC ByaWdodCwgcmlnaHQgb jVevxEnpNZlSZV3rI6i EJusucYzTEUsOQ4lu8O kQU3cgLJndJEwFU61XP yaHeNjJsbzJYNrT46fm 5fpyBJfb4DiFX9hiS9h fdjylxOoBHQxb0Z1xN3 fPS0bCEavaYuwqi01rW o6XPFiyKGqs8OojMZ1N XBxm9Z4DQQhqgFcj43s xKgaGD6qzK47FW3lHF2 1c7GzQCImRK92NRgaRa 5mQSemSQ27QQDdBJ0ba GluZSBcdGFiIFRoZSBz nURrcG5jhrUsrvKrLUI 5jE8dVXOtvN5akgB1DI LxLPIhvW8lq9cndXYpb BZlESA3KQ7qiYldqcHy oJ6miISnw2VmwaOywuW kR0uqFhEkdt3bNGOvLH 1nOUBeLQvwRXedTBX7H VN7NSOokQAfr4airrJ3 mYI1uuGbFlAnsOKdApq jcSAnQzYfS10eXnArDQ fmFOlhgsaev1KcmTjvn Zqxhb6dYJKounZhLNH1 uM7uPUXuyQ7kyjM5WFA lPCNdGaauuUI5uDj7TC 54BM9pJ3Z4CUF1leCoQ 0Jeh9n4jOKjMYBermQb HHtcJ4Q8wPZ0NFJprbA mfG1adqpeDYGqcLRpoR UobU19ktMwr4BlutLiX AWlby44dsZmmIidLZNf wNjmKwCyKUtpLJZ7lW4 dZLsvsEhiixU8oNWvxF lzxSaxer4eMXOehRQxJ XJzIHRvIGJlIGluZmls dHJhdGluZyBpbnRvIHR fCXRmdBYkq5BqJFdyBo QwJGndm2RhFGNtt6L4Z I1rmEMhKT9VKOPhGeNB JCSJMO7BOUBTYXA7ECG hERDqZDBoo6VpDlqjVY g7jJEsDL3vVJH2ZUCcM PRtIHStnD8ma3tvbRWt oYuwyVetiy7kUXOhzMC oR7HaGIGlhaWoCTDkQF Qbj6KhyNFcSbVQXV69Z CByZXByZXNlbnRhdGl2 DFSmAUJ2eA7uzyVyss8 aOTxkfrorw8CnS7Dhm4 FawLRpg1UhwYd6YFUkp G6cuRKwy3AoUoGgDBUi a0DiB2R2TSEhUQolf4d kTNHcFTgcj7YhTUiPWW LJTS0AHM0pdWZ0SEtVZ 0FFF4qEqPLfLBJ6hVM0 PMIIQdlwiOO0sBO0pV3 4YCZjHGIdlLYwTVkkQ6 46ZLX3ZRSxMHdlo7wlD FSjEFuzw9GwNTrLQYIA ZU4GJH9upZA3FJqGT3D ORHwyMTAxNnwxfFVTRV Z5NJrafKzmtLt1a0lti PJys0n5MQouWIH5zWvs bGFpblxsdHJjaFxmczI kMX5UXHEyeVIXQZZ2VM 1lWNe7RUsnDLVbZ1UtM 3RlbmRccGFyXHBhcmRc d1jaSEF2WFJxjDYbqFD fCzRzDakbDHA5ODWvIM puUK0UQKKlRTM7EEhkp I00jLYyYD8CYNFeEIxe YLCgUTAteqE5JRFdwAZ bYYG5IH1liOzqhEIjoi chjxD2XU8DuC== Disclaimer (test code = e2vofNLkCZVtnUBdNqM 9844) fBSTgEIFbn7toDSPttG FuZzEwMzNcZnRuYmpcd JPqWAAsAbMsn9cor320 zVBdd9giXAHeDaP2wUU oOXZypOWgB789RLYdRI mmn4ovg7WcUHRgfAQil 9L8FVPIkjqllQh4yHpb O80ao7U6QihnN8hxYKV kQOHcP2IeZO7dDFTrBm n8OEU9DPU2MEAjIPZcY 3NlLM2cKQCksIAcWFt3 c1omaMwcDUFyKER7d6u oEErpzwYxJS4nnf2wqD s2u3nbbsQfBZHgQOAfr FJXENViP8UtaCuxZk8s tQr6mLyrQjrrDNP8Mih 2YR7lyg46llc1eDbdBR CgcctxSkM8HSolDQQxx yxgBEj4KWycTTVrfLW2 SIReyXGcD2JuRVRxKM4 kjcc3DME6MSjiPIWyIi Q9IWTzyAGwGCHnsGgvR Nmbh795FNE4ZaRiSL0p G4Tua7Z0oM2mlWIuWAQ tiYSkGxLfGLFcgd6btG UvUWiwc8JmWSK4txK9q KIyaLRwAYJjYY96Ctzq o9FxFovgFGP0ANJfaiZ bn7Bzh6niOiKmgcQoV1 gaX0MwGWTkODNfKWBjS xElrxNfn5Uhg9XwuGQo zXw0t2mfAIVmJOLulEl ib4lxPHW1XJEqE8X9pP Qzo7jaPSvcCLEuhII4t mR7UQVtxNIaH3AlxF9r ROZzWY7qyiu3w6dnREB 1SApnKWWvFxS1tdD6MQ BcaGVhZGVyeTcyMFxmb 059LKH0CgPuEKQhz2Yo O6QyvXyaT14pfOveM46 fTWUrwMmhhQ2wqHuhjG 5cZjBcZnMyNFxxbFxwb RRqywlsEFkwrlW3VPfg mlbiTXAoNBneZ1raWkP kSTUutFdxEUbwv2UhIL JwQACmSndnktX2OFVEs 39vFBCru3KdFQHufL4x nETdPCthiwCtsZS7UTf hdmUgYmVlbiBkZXZlbG 2eBNFrAZ6uZSHioxBip k2alnMlESGvZIIiD1Os cmlzdGljcyBkZXRlcm1 bvhMwFMW3XBTOKZ7NQR LzLIWot59rLOIsgFeaw N2pmPQeqnBmOQJjf7Oq mY8ppVGLOVKtV6moFW8 nADojn3IicNZxvBTljU R6KLQib7MyCcJfyaAit BCqdTOyK0ZlnPpvP5ms DDXbWSQdcgNqeTXzu5F cMAVdnBW2uEUdHA4PUz JFc56dMUSqCKQLvxMyE GZhrYbajKI2xzI8iJ4p LiBJZiBhcHBsaWNhYmx wPVGyr798ht3cdpL5XQ XaFIKivjkmp1PtGNEoR DEyqE89LMTfXERhdq6s wqabqAUgdwCwG6Qjdgv 6iY1qNUVbZYytBNCgJI ZzMjJcbGFuZzEwMzNca GljaFxmMVxkYmNoXGYx CBdzI9peRsJuXhRjHen wYXJ9 MD CrowellTMP Interpretation Antibody Screen [id number] 21:59:37 Test Item Value Reference Range Interpretation Comments TMP Auto Neg At the present ABSC Interp time, patient (test code = plasma shows no ____STAN Lamas ORRSUNITHA 7535) evidence of RBC MD AMRIT, P hD - alloantibodies. [id number] d by: Lexii LINDSEY, PhD - [id number] D ate/Time: 11.09.2021 16:5 9 PM CDT Transcribed Da te/Time: 11.09.2021 16:5 9 PM CDTElectronical ly Signed By: STAN MARCUS MD, PhD - [id number] on 11.09.2021 1 6:59 PM MD CrowellLfxunsysKFELa1314-12-77 20:06:14 Test Item Value Reference Range Interpretation Comments ABORh. (test code = 882-1) O POS MD CrowellCltemo Expiration [id number] 20:06:13 Test Item Value Reference Range Interpretation Comments T & S Expiration (test code = 11/12/2021 5318) MD CrowellAntibody [id number] 20:06:04 Test Item Value Reference Range Interpretation Comments ABSC. (test code = 890-4) Negative ABSC [facility] Glucose [id number] 16:15:26 Test Item Value Reference Interpretation Comments Range POC Glucose (test 104 mg/dL 70-99 H Notifisabella dCapillary code = 48630-7) blood sample s, e.g. obtained by fingerstick, ma y have inaccurate resu lts in patients with decreased perip heral blood flow. Met hod description: Al l results are rosaura sured using Electroch emistry test methodolog y. The glucose in the sample mixes with the reagents on the test strip. The reac tion produces an carmencita ctric current. The am ount of current produce d is proportional to the glucose concent ration in the blood. PO Sample Type (test Capillary code = 9554) Performing Lab (test [facility] Main Main [facility] code = 13178) [facility] MD Harleen gama [facility], [address] [place] [address] 770 30; Watch Technician: Mikayla Cao MD Lab Interpretation Abnormal (test code = 77844-1) MD CrowellElectrolyte [id number] 21:17:20 Test Item Value Reference Range Interpretation Comments Sodium Lvl (test code = 138 See_Comment [Au tomated message] The 2950-08) system which ge nerated this result tra nsmitted reference range : 136 - 145 mEq/L. The reference range was not u sed to interpret this result as normal/abnormal . Potassium Lvl (test 4.2 See_Comment [Automa bertha message] The code = 2823-3) system which generated this result tra nsmitted reference range : 3.5 - 5.1 mEq/L. The reference range was not u sed to interpret this result as normal/abnormal . Chloride (test code = 101 See_Comment [Auto mated message] The ) system which ge nerated this result tra nsmitted reference range : 98 - 107 mEq/L. The refe rence range was not u sed to interpret this result as normal/abnormal . CO2 (test code = 25 See_Comment [Automated message] The 2028-03) system which ge nerated this result tra nsmitted reference range : 22 - 29 mEq/L. The refe rence range was not u sed to interpret this result as normal/abnormal . Anion Gap (test code = 12 See_Comment [Aut omated message] The ) system which ge nerated this result tra nsmitted reference range : 4 - 14 mEq/L. The refe rence range was not u sed to interpret this result as normal/abnormal . MD CrowellGlucose, [id number] 21:17:19 Test Item Value Reference Range Interpretation Comments Glucose Random (test 105 mg/dL 70-199 Effecti ve 02/14/16, the code = 2345-7) glucose refer ence intervals have been updated based o n [place] [employer] chuy delines (Standards of M edical Care in Diabete s 2016. Diabetes Care 2 016; 39: S13-S22).Fastin g blood glucose:Normal: 70-99 mg/dLImpaired f asting glucose (increa sed risk for diabetes or pre-diabetes): 100-125 mg/dLDiabetes m ellitus: >/=126 mg/dL Ra ndom blood glucose:N ormal: 70-199 mg/dLNot e: Random glucose >100 mg /dL is associated with increased risk for diabetes MD CrowellGlomerular Filtration [id number] 21:17:13 Test Item Value Reference Range Interpretation Comments eGFR-AA (test code = 65 See_Comment Normal eGFR: >= 60 06257-3) mL/min/1.73 m2N ote: The eGFR is huey culated using the CKD-E PI equation. The e GFR declines with a ge. eGFR <60 mL/min /1.73 m2 is considere d as "decreased". Th is equation should only be used for pat ients 18 and older. According to th e [employer]'s Ki dney Disease Outcome Quality Initiat mindy (KDOQI) classif ication and 2012 Kidney Disease Improvi ng Global Outcomes (KDIGO) Clinica l Practice Guidel ine, the stage of CK D should be categ orized based on estima bertha GFR. Stage Desc ription GFR mL/mi n/1.73 m21 Normal or h igh GFR >=902 Mildly decreased GFR 60-893a M ildly to moderately decreased GFR 45-593b Moderat edwar to severely decrea sed GFR 30-444 Marlys rely decreased GFR 15-295 Kidney f ailure <15 [Auto mated message] The sy stem which generated this result transmit bertha reference range : >=60 mL/min/1.73 sq. m. The reference range was not used to int erpret this result as normal/abnormal . eGFR-IMELDA (test code = 56 See_Comment L Normal eGFR: >= 60 76709-9) mL/min/1.73 m2N ote: The eGFR is huey culated using the CKD-E PI equation. The e GFR declines with a ge. eGFR <60 mL/min /1.73 m2 is considere d as "decreased". Th is equation should only be used for pat ients 18 and older. According to th e [employer]'s Ki dney Disease Outcome Quality Initiat mindy (KDOQI) classif ication and 2012 Kidney Disease Improvi ng Global Outcomes (KDIGO) Clinica l Practice Guidel ine, the stage of CK D should be categ orized based on estima bertha GFR. Stage Desc ription GFR mL/mi n/1.73 m21 Normal or h igh GFR >=902 Mildly decreased GFR 60-893a M ildly to moderately decreased GFR 45-593b Moderat edwar to severely decrea sed GFR 30-444 Marlys rely decreased GFR 15-295 Kidney f ailure <15 [Auto mated message] The sy stem which generated this result transmit bertha reference range : >=60 mL/min/1.73 sq. m. The reference range was not used to int erpret this result as normal/abnormal . Lab Interpretation Abnormal (test code = 12758-6) MD Crowell.Serum [id number] 21:17:12 Test Item Value Reference Range Interpretation Comments Creatinine (test code = 2160-0) 0.97 mg/dL 0.51-0.95 H Lab Interpretation (test code = Abnormal 81310-1) MD [id number] 21:17:11 Test Item Value Reference Range Interpretation Comments BUN (test code = 3094-0) 21 mg/dL 6-23 MD CrowellHemoglobin [id number] 20:57:54 Test Item Value Reference Range Interpretation Comments A1C (test code = 5.6 % 4.3-5.6 HbA1c value s >=6.5% are 4548-4) diagnostic of d iabetes mellitus.Diagno sis should be confirmed by repeat testing.Therape utic Action suggested: >8.0 % HbA1c; Goal oftherapy: <7.0% HbA1c MD Cro[id number] 20:35:36 Test Item Value Reference Range Interpretation Comments Neutrophil % (test code 60.6 % 42.0-66.0 = 770-8) Lymphocyte % (test code 30.6 % 24.0-44.0 = 736-9) Monocyte % (test code = 6.3 % 2.0-7.0 5905-5) Eosinophil % (test code 1.8 % 1.0-4.0 = 713-8) Basophil % (test code = 0.5 % 0.0-1.0 37382-0) IGRE % (test code = 0.2 % 0.0-0.4 IGRE % c ount includes 19069-7) Metamyelocytes, Myelocytes, and Promyelocytes. Neutrophil Abs (test 5.03 K/uL 1.70-7.30 code = 751-8) Lymphocyte Abs (test 2.54 K/uL 1.00-4.80 code = 731-0) Monocyte Abs (test code 0.52 K/uL 0.08-0.70 = 742-7) Eosinophil Abs (test 0.15 K/uL 0.04-0.40 code = 711-2) Basophil Abs (test code 0.04 K/uL 0.00-0.10 = 704-7) IG Abs (test code = 0.02 K/uL 0.00-0.04 39750-4) MD Crowell.[id number] 20:35:31 Test Item Value Reference Range Interpretation Comments WBC (test code = 8.3 K/uL 4.0-11.0 6690-2) RBC (test code = 4.57 See_Comment [Automated message] The 789-8) system which ge nerated this result tra nsmitted reference range : 4.00 - 5.50 M/uL. The reference range was not u sed to interpret this result as normal/abnormal . Hgb (test code = 13.4 See_Comment [Automated message] The 718-7) system which ge nerated this result tra nsmitted reference range : 12.0 - 16.0 gm/dL. The reference range was not u sed to interpret this result as normal/abnormal . Hct (test code = 41.1 % 37.0-47.0 4544-3) MCV (test code = 90 fL 82-98 787-2) MCH (test code = 29.3 pg 27.0-31.0 785-6) MCHC (test code = 32.6 See_Comment [Automate d message] The 786-4) system which ge nerated this result tra nsmitted reference range : 31.0 - 36.0 gm/dL. The reference range was not u sed to interpret this result as normal/abnormal . RDW-SD (test code = 44.6 fL 35.1-46.3 20442-1) RDW-CV (test code = 13.6 % 12.0-15.5 788-0) Platelet count (test 282 K/uL 140-440 code = 777-3) MPV (test code = 9.8 fL 4.0-10.4 13711-8) INRBC (test code = 0.0 % See_Comment The INRBC (instrument 86153-5) NRBC) value ref lects the enumerationof n ucleated red blood cells contained in a 200uL samp leof whole blood analyzed by the instrument. Thi s value maydiffer from the NRBC value reported in a manual differen tial,which is based on a 1 00 cell differential. [Automated message] The sy stem which generated this result transmitted ref erence range: <=0.0. T he reference range was not used to interpr et this result as normal/abnormal . [facility] Image-Guided FNA [id number] 16:17:12 Test Item Value Reference Range Interpretation Comments Gross Description (test z0btiCGuZMYprDZAHWkm code = [id number]) CCgjphHfULSapUSjF8Pe bgggURujLI1mYK5vhDsv hJXgvFBkHF2OITXpGwGg XHBhcGVydzEyMjQwXHBh jSSvxWG0XZHrZC2ooaca TEzqJBryBACgjgT6ANWx uTMnU8YwLRItBL3owsly BQQ3CRmshG5pmbLYSivp Bk6szJForAikHfSdKiPx YXJzZXQwXGZuaWwgQXJp TJh0fK6YVvowC94xa8D8 Xko6BKCrXAFpX7CmVU6x ESRgyDTaA19FJbbqJMK1 LTGWKwelANHqTK8Er2ko LVWeyCNtYWR4ICnbkYHr VGLkQYZqSXs7DPTfVOon vFJfUU7dwTfwQdtpjOki f8MlhTCkGOlpAWCaGGSn YCniNDIoHE1UNaWvDPNs OJj0ZLZtVXx4SXb9DU1N ZpTaHKUtAMO3AuRsYlBg BBd1XVhbCD2EYDVxDEox OTcwNTAgNTUzMjYgXFx0 IDIgXFxmIEFyaWFsIFxc ZnMgMTAgXFxmYiBcXGZs YHrtimF8CEMkCFfuYPFu ZnMyMCBBOlxwYXIgDQpc uDyxyY0hHAQgG67lq1GX n1PqXO0SHJc7yiMjljpj yL8dLWUnniHzRLrofTUq M6ixY2PyHWJlIcFzP8Vr Z6ieGI4wTLMnh1N9dxFt OlxwYXIgDQoyIERpZmYg CMUdfqdcAISZAMSoY6Ap lE6iN9brUSIbIIUurbEI NtNwWS8zAPWlrIKkgCVs tLcgAozguCQ7EOmgRgqd sT7lxICQWWNLDplPMjjx vaQnKI7MJETZUnMOUM07 XyE0CyK7KJrkwBxjGuzz bsJvmOOjDdPFzK5gjSuq gLEpeQYxzE55ZPygAMXe j3RwN4Obt9pkgKPwRIyr RetriWRxujQ6LKyDOREX NLaTWkWaVX8fZVmPJOZS RUdJTnwyfXtcZmxkcnNs hMNsOvDNkY5hzTlkrQOe qSRabL8fNEo5IGXiASuv o0niTNYgDHxlz4ZcVXdW RLPSRT3EZM4dnAK8G6pF REVORHwyfXtcZmxkcnNs bAWdDgCGlG4baUfukC5x dVPuY6kghVDxjDWftPra QsGlFlFmKZXiLst0lSJ4 APIzSPmba8afHOYqZNyh o1AgZSgJRKRFAA2HUF6l xUX6YQnBDBEAZIeaYHK7 VYqpzPZ9e6bfjJYqo4d3 XWquGTK5cJmzqVBufhny dHJjaFxjZjFcZnMyMCAg uE3nQgWHCLbtYEBhAMvf F4WgQOFcP9AfjFQZhG3s r6crOWMvOAgJWMMrB4Um dWLgEBbtU9UwXXvxKAHn am5cwPwdZsNmuEKjpAMi nUaoJfpakJI5CIcqRqjg pI9fwDDBEVUVEawATvik atEuRO8AYX2DDkINCY89 JQXiEtH1A9nOR0DWZPBZ SMZ7TBl9pPF9qC35FCSf MRZmfGNhEWsxL516HZDv CUVeSpZ1GJPwXFfep1zr CLAhGWdnr0CrTXxNNCNO QR4QMH9fvQN1MVaCH2BR KDf4YNU3EocemLPMMGGH SVKKLXeyaXa6CRe5mTmu WwjismNaaPXhQkFPgJ6e rMtlvG5pxHVmW1fcHtFz JBRtBFGmh5GaH2T6FMLa PYmbm6bpZQQxCIoco4Mc GLkPADXBDM2WCP7lpPU4 WBbSL7KRN3oSmOgoiJR3 Lt9OkPK9lDhnyVv0v0dv nBTcn7n5YMkiLJE7vXJ2 ROSgFV45ZVNkTEgtk4wx DFFxRCwro4XvDMgYZCVB IC9MQE3bqJR5NXrQZ4US YAb7Mus2lZ5OD0yyuNm9 MUw1zLddZrdcovCqaDGf ZaUZxY5uiUvxtG9dxBOe G5neZ9GwYCWmAwNphCXm XR4GAFFsrqEDJgVltxX3 IOMdSnK0CTTdOCD4HJRn OSBjbVxwYXIgDQpccGFy WS1FRE0qXWRoMCNpCWEt h3Eag20asgYjOp4uSMKe ENOmtGLeZMUeYLY6OBV2 CFbeleUpOBVrANorvn39 RKI4u5nsuYPzTNgqMjpx fCVfioL6HMsJLSXFAElQ ZsFlJJ2gZDlQZ3HCITcC LcuvFDw0TDe8mBT3x7iq hVJkc7c4ZHmlNVV9xCwm n9psaVYzQYrwIzswrFFz bcA9UEzWQLRUGVqYCiCm DE7uBAzIL3XHBsW5FfU4 UnP1VDv7bXstMfjwleFm kJRxDkEEdX7ogHteiV2e sKVgV9mwK2AaSREsNzFp VTP0IDCeCyLAAF8cEXlv xvGGZJNBCVwDS5UpBZWK NUTUHZUlOgNCHC1lPjZ5 DoC0JI38TivsHnD6BgA5 eQW3HAEHNHGCETrXJ8Ra QVBJMFPALYXqIK9DKIvG QYUEWSWOH14KCKBWOYZB R7UWD4tZIGImo5FsbLte tLo4SPFkz20wyDxFSBHC IKMIF76SHWZCXKIEB6BE EGLUHBHGRXsNGLFUUp9D MIALQBVAND0KUQkRAhQz WHygnEUfVEpcKLB6TZw0 ESv6mPCfh6DnpHZ6MtU7 NjVcfSBQTEFDRUhPTERF Zv6BXKEHLUMDBW9FTcRw Y6PWQY5VZj9EZIDCRPLK CC2INXuVCrLmY6RWIC3T Th7ZJACOXRNRCO7MIyVa UAECY0XFJcRRG5jhILHH LMLJEJGbKcOEPK4aIXLZ KK5HPZWEROAOH66SBYBA EIRMS5SWHW4GEKKlcZQR ZZF3IV7cXKu3GSvpQTVr E9BkC1AgnkZawCNmZYTp reDhw4ruOGI0YSTrrQGk jKUpCbQeUuczOHG5LHTp UXjbIS4XRBPsXSX4GCbp uP13aWRdNO0MHTIlHUvg QDKyFWXfgsK4PFBqrRLm CKI2QK4leAtytBUlteez jdI4DL5ZyW== Immediate Assessment Adequate (test code = 9837) cellularity, favor malignant Major Classification MALIGNANT A (test code = 9839) Diagnosis (test code = q0tbtFLxWYAkuPF5KbMx 34) JMLrw0xxs2AudAJdtMYk GXlhgJVkkeXncx89rRO1 aI36PJ8wBMGkRhD3OGKb baG5Zus6RCBgSLBzhLRv J009k0jnx9kisdMsjLY7 PNXaXCWaM0HhXX6iYHCr pYWuT45dbJCmSSF3YVDu NEAqcGWpMGOcKSD9OFOm wJHdG9zgLTDcHC6ihakp MCmpIRptSASbpKE4MHMa sXHqU0HnRODrPMtsZSSe wqz5YiUcKt2bkVIduVmu TQilW5avoP4bTsL3EDzh C0kvnC4qETe0DGspBOHm uNT7mbV6EANwaLPoH6Im dB5eJBYlIU1qsoi1t6iq IML2GHpuTTWfLzA7ffR2 NDBccGFyZFxwbGFpblxm oiQlOPUlSVBDGzWAvX5x lRJuf4ObGIJlzUtsjUUk m9X7VAWes1Odu0IqVULg s9YpliMbkwvzRuqfBNJc ZWVkbGUgYXNwaXJhdGlv bjpccGFyXHRhYlxwYXJc fSm7EcEyRDDQUCLZVXHE IkRSSPFBXB9QNgHJMHgQ HYYDXvTWTr8MRSuoXTV1 Comment (test code = j8vhvALpNZWxgBL6FtFg 9835) KEBbi8mqe4BcwMGhyFYk FVvscRElihSjxk59qVU0 jF05RU2vSBMgUdG1QMXd mqA3Srl4KSLkBQLduFZo R762w2iju0hljtLxjFN1 dMcdSCFpmkaeDgN5BGzq EIKwrbtxEJv5QXwgHOIa sGQ6ISTtrAYzR5AzFRLj TK0bcus5BCF1VBkiRCXs JdD0LYFukVBqOBAucYip UPppf343OBR7ByIiFRNl ouYzoMygnB7sZjNuEWYD vrPxjV05ne2oaBQyzwQ2 aXRoIGFuIGFwcHJvcHJp VLKoLWHijrTbn1zsDTZn uqTshu9fBMOhgiW3kMBh W9ZoaQIcjE0kxbAbthFl SOLgeBxvtydzl9ywepZ4 dM2nfeOhCJuoowM6rmVq EHQwj8BrsSi7UOHox6Hp UDQwLiBUaGlzIGlzIHN1 jGFpkeClkyQdg5FgeQbj WBSmf5TuMKRlFRtuy9Hx vw5rKWZzyw7= Retained/Biomarker u5gpfGUtBAUjwQG7IwPv Testing (test code = LSShc0qqu3PncVRogNEe 9838) GMddtLOmenXmkr02kTK7 nY82IK4sPMSeGhX8UVNk auC4Nwp9EZMcMINmsYYi J904x6kae8wleuXkoQE0 fQjqZWFgeyqfZlI6OJdr ZUAeuvehBUk7SFwpKNHh pYX8DAIycFTqH8SkNLQt LO0yklq6BLY1KFkwQHEy QzZ6LAMrlYCqNBXeyTvz EZgfe160FTZ4QnKfOHKp khTswWkpbK0dMaTwXCIM UjogMTAgUywgMSBJUCwg MiBDQlxwYXJccGFyIEJp h32eyrlwtmVKKCP4uF1x VcigIJFypLg2VtZoaZxj QfDpRD5YHNPSSSutWESe h1VuGbB8JRLnzKKwXN3E NDTGAXZ6NKhxep59YTN3 o9pstGTxFBugTdgukVBq riB4DAgZLTZAQYoOIxOr HM7mROtKU7FOVZoKHtjj SJR5NOfoxEI2a3fgvJHl i5z5PIuoUXU3xB7hv9me aWVsZHtcKlxmbGRpbnN0 AXtFALROJBqAQkDbZT4r WXoUY7IFOvL9FaO9PhF1 MXwxfXtcZmxkcnNsdCBc YoOcoY6gbMkaqQ2mThHt MFxwYXIgTURMIERROiBc cHJvdGVjdHtcZmllbGR7 ECflWnbwoD0ooTXMQNGM DqpFWrbrcxBgOM0TSLVV FqNTNN50HhE2ZfT1Szjf fXtcZmxkcnNsdCBcJzFj fB4Hn9znIbytaMY5GCyo IspxzU7vbJBKGEIRCqfP UfdmjdJmLL7PVDRVCB6R yKL7EcfkxZR6De18GQBv FLDinTLaEGcvT930YCPg YWluXGZzMjBccGFyIEZJ A6pbBGG2RUgsjq15QDD5 d8wvxJKdOHrgElaioOEh juK9JEbBIOQYGUkTLaFb RA7eTYgII9ONAIbQPylm ZYZ1HGroeGW2y6zrgRTh j8w1PSbsUDQ1pY0in6em aWVsZHtcKlxmbGRpbnN0 VUlKXBZSDSsWToQhUV7l KFcCG5IFEdR2GmH7KhZ8 Z1ehaXzbJktxfnNweCIn VwFnhT3qvDqhsP5cCxNo MFxwYXJcdiBTTUFSVExJ K1ByMQMAGSGAPPTqWfCV UA5tSdY0KuY6YO9xGnV5 IpcpqCT4ZJ8aVYS7OXwt CWXdH00QRvCSFLMTU65X HTFQLGEMP1VYCAFGLDvF D5GXMV5NAUBIDRNCYT1T RIbYLgPPXBsRR9ZSGP1W HSZWDNSZKQ9EVdOyQLxN X1HGF3eGFAYkPUKMLMZV QVFhZhMDZU8uLNq1Oc8j S7mzFHZeTzR2GtgzSC2n QZgNdr4EoWvhLIQ8PyD9 HbLwqUZwo71qI3SlyXTo bqtgJAF3RQi7VEQJLEJD XG6FWVCNG97DXNFYTVMT H7WLNPXCIbFCYSCXF80O AMBOKVOOP4CZJ9aTFVQI DiAMYRGPF96ZQTQHUONQ M0LEHYGHZJHARxMNWqBN UJ0SSGMWEQPWCP4ZXDkY KjBiXTZKC3ZTBxKFI0hi QDZIXRECJRYzCH3LcG== Informational Points v3ojwHGqHLSnkBQqBqAr (test code = 9836) DCWlDWLrk1qoIJUcnRDx ZzEwMzNcZnRuYmpcdWMx LJUoUbWcq0mbb536dUMq q5cnDWXsYwN3nZDcBBEq aUWxQ408PCTwDKzwm7lg q3GpQQJjaAVpg3B2HZVM LBhuCQIWLTl5r4jtNqVv AfH6mMUsBQqiI2fgdlRj lCOmHNTrDMs5rC19ORKh jU9ugZYqAVkktaRyPuR9 JSfrCUFbSvV2XMRruREx WPGnL7mxSNIuGPamSAUa MJuhcACcBXW5zRtno7J0 bGVzaGVldHtcZjBcZnMy NkFYi8QgNUt6cCghA3Yg WSLqBgM7aCTjLFPdNTzz RHGdYRRdgfV3rE43EJjz gxI3bXYgn2Rjw83rv829 zP1ljURwFBD6VJPjUSGm dWCdTHIkDET6WIZahJWo N3lnLHEqIT7usycqIHpu RCeiHWCnfMN2RTRtpHWr A0LfRJOgAPndSEVpxxi8 QdFxOo5okFYtcAddBOhz e8crw2gkrZBaKee2ZAJz OcCpWclwSPsde7Sqm4za YDIiil8jJXV2yTYktTmn y7P6zSHcBECbuMPzudKd VYAaKuR8AHqeYD0tfm87 HVZiVNM4tb2tqXIylXld boIuvNYjRPmdL8QrCKNk j906CRUqT8VmJUWwo9O0 qwHaXwLcFJShmMV3skS2 LBBqEUw5qHRrcrA4whZf iOTcO8fjkP2sETRcTH5x cyqkt1cfPXogJNcxPHTl rYW6fpP1NLVffXBsM0Rd dB6cTBGgCSspUNMbhhq5 DpCnRy8hlZIzbRcqHMzf YmtwYWdlXHBnbmNvbnRc cGduZGVjXHBsYWluXHBs YWluXGYwXGZzMjRccWxc rCryxZ9vNlMyDlStIQbl AC1tRHIrM9cmtKAtKJHb LCXbI5fyDcRhnF7dvVfs DAfceiB2RDifJ38gXQA6 WVL9ncNeKIJlzuTtYERt JJPxBT1zjRMcDQDaMRQu MZ0fQMW2LAszvKXpHBSw BRGzXUZhf9NuRT1uWVBi cSJjEGS3DBIfw1UhY4Vt XEQ5IELkaP5bHKOyxDQD VCBNRCBBbmRlcnNvbiBQ JDPvm8osI6ucAM4bOXqi Hn0iIFHijvjyEXNroUDs taCdQVLhOJGqBBAtr1Ht YBqetuJfgv52PVZlQH9p j5CjN2bhbDQchIe4KUDr HGKrJXZxn4EdQBUtwg21 NNOtObqrdMdbNIZnPa7c Gd6rHQWhavVvGGI7CyAA UL9ubpnlbFCtuEiole0i XHBsYWluXGYyXGZzMjJc bGFuZzEwMzNcaGljaFxm IrsfYaEjOQFiRXsgO8pa ZjJcZnMyMlxwYXJ9 Lab Interpretation (test Abnormal code = 73629-4) MD Lester [id number] 19:42:59 Test Item Value Reference Range Interpretation Comments T4 Free (test code = 3024-7) 1.70 ng/dL 0.93-1.70 MD [id number] 19:42:56 Test Item Value Reference Range Interpretation Comments TSH (test code = 1.54 See_Comment [Automated message] The 47092-2) system which ge nerated this result transmit bertha reference range : 0.27 - 4.20 mcunit/mL. The reference range was not used to interpr et this result as mattie l/abnormal. MD CrowellCOVID-19 (SARS-CoV-2) PCR-Asymptomatic [id number] 22:58:00 Test Item Value Reference Range Interpretation Comments COVID19 (SARS Not Detected Not Detected CoV-2) Result (test code = ____This test i s a 15370-0) qualitative reverse-transcr iptase polymerase luis n reaction (RT-PC R) developed for t he Madeleine RUSS 680 0 system and inte nded for qualitative detection of SA RS CoV-2 RNA in nasopharyngeal and oropharyngeal s wab specimens colle cted from any indivi duals, including those suspected of CO VID-19 by their health care provider, and t hose without symptom s or other reasons t o suspect COVID-1 9. A fact sheet for patients provid ed by the manufacture r ([employer]) c an be reviewed at:https://www. fda.go v/media/920653/ downlo ad. A fact shee t for Health Care pro viders is provided by the director client ([employer]) and can be reviewed at: https://www.fda .gov/m edia/207198/josee nload Results must be interpreted wit hin the context of all relevant clinic al and laboratory find ings and should not form the sole basis for a diagnosis or treatment decis ion. Positive result s do not rule out bacterial infec tion or co-infection with other viruses. Negative result s do not rule out SARS-CoV-2 and must be combined wit h clinical observations, p atient history, and/or epidemiological information. "Presumptive Positive" resul ts are due to partial amplification o f SARS-CoV-2 targ ets and indicates l ow amounts of viru s present in the specimen at or near the limit of detection. Regardless, individuals wit h "Presumptive Positive" resul ts should be manag ed per institutional guidelines as individuals pos itive for SARS-CoV-2 virus, including use o f appropriate inf ection control protoco ls. Internal contro ls are included to ass ess for possible amplification inhibitors. If inhibition is detected, testi ng is repeated and if inhibition is confirmed the specimen is res ulted as "Invalid". W hen an "Invalid" resul t occurs, it is recommended to wait 3 days before submitting a ne w specimen for te sting if clinically indicated. Thi s assay has been approved by the FDA for use only un terri Emergency Use Authorization ( EUA) in laboratories that have been CLIA-certified to perform moderate-comple xity and high-comple xity tests. The performance characteristics of this assay were verified by the Microbiology Laboratory at [facility] [place], CLIA Accreditation # : [id number] and CAP Accreditation # : [id number]. COVID19 SARS REPORT CLERK Swab Source (test code = 10915) COVID19 SARS Pre-Out of OR Indication (test Procedure code = 31489) MD Crowell
[2021-12-10] MEDS ORDERED: MORPHINE 2 MG/ML SYR ONE (05:09)
[2021-12-10] MEDS ORDERED: ONDANSETRON 4 MG/2 ML VIAL ONE (05:09)
[2021-12-10] MEDS ORDERED: FAMOTIDINE 20 MG/2 ML VIAL IV ONE ×2 (05:10→09:57)
[2021-12-10 05:15] LABS: Absolute Lymphocytes (CBC) 0.3 K/uL (0.7-4.9); Hematocrit 36.6 % (36.0-45.0); Lymphocytes % 2.2 % (15.3-44.8); MPV 8.1 fL (7.6-11.3); RBC Red Blood Cell Count 4.14 M/uL (3.86-4.86)
--- NOTE | 2021-12-10 05:15 | ER ---
Nurse's Notes [facility] Name: Connie Buckley Age: 80 yrs Sex: Female : 1940 Arrival Date: 12/10/2021 Time: 04:27 Bed 27 [facility] MD: Diagnosis: Cellulitis and acute lymphangitis of face-right face/cheek;Weakness;Type 2 diabetes mellitus with hyperglycemia;Vomiting;Elevated white blood cell count;Hypokalemia;Hypomagnesemia Presentation: 12/10 04:31 Chief complaint: EMS states: Called for patient for generalized weakness and nausea, lp1 vomiting; Currently receiving radiation by MD Crowell. Coronavirus screen: At this time, the client does not indicate any symptoms associated with coronavirus-19. Ebola Screen: No symptoms or risks identified at this time. Initial Sepsis Screen: Does the patient meet any 2 criteria? HR > 90 bpm. Does the patient have a suspected source of infection? No. Patient's initial sepsis screen is negative. Risk Assessment: Do you want to hurt yourself or someone else? Patient reports no desire to harm self or others. Onset of symptoms was December 10, 2021. 04:31 Method Of Arrival: EMS: [facility] lp1 04:31 Acuity: MARC 3 lp1 04:51 Care prior to arrival: Medication(s) given: Zofran 2mg IM administered by EMS. lp1 Triage Assessment: 06:00 GI: Reports indigestion. ke1 07:06 General: Appears in no apparent distress. Behavior is calm, cooperative. Pain: Denies ke1 pain. Historical: - Allergies: 04:36 amlodipine besylate; lp1 04:36 Clonidine; lp1 04:36 Codeine; lp1 04:36 doxazosin; lp1 04:36 ezetimibe; lp1 04:36 Indomethacin; lp1 - PMHx: 04:36 Angina; Diabetes - NIDDM; Hyperlipidemia; Hypertension; Hypothyroidism; Mouth Cancer; lp1 TIA; - PSHx: 04:36 Partial tongue removal; Hysterectomy; lp1 - Immunization history:: Adult Immunizations up to date. - Social history:: Smoking status: Patient denies any tobacco usage or history of. - Family history:: not pertinent. Screenin:50 Abuse screen: Denies threats or abuse. Denies injuries from another. Nutritional lp1 screening: No deficits noted. Tuberculosis screening: No symptoms or risk factors identified. Vital Signs: 04:31 BP 135 / 103; Pulse 106; Resp 17; Temp 98.5(O); Pulse Ox 97% on R/A; Weight 66.22 kg lp1 (R); Height 5 ft. 4 in. (162.56 cm); Pain 0/10; 04:31 Body Mass Index 25.06 (66.22 kg, 162.56 cm) lp1 ED Course: 04:27 Patient arrived in ED. lp1 04:28 Fer Crowell MD is Attending Physician. sharri 04:28 Arm band placed on left wrist. lp1 04:34 Ricardo Gutierrez, SUMAN is Primary Nurse. ke1 04:36 Triage completed. lp1 04:37 Patient has correct armband on for positive identification. Placed in gown. Bed in low lp1 position. Call light in reach. Side rails up X2. Client placed on continuous cardiac and pulse oximetry monitoring. NIBP monitoring applied. 05:07 XRAY Chest (1 view) In Process Unspecified. EDMS 05:14 Carrington Arteaga MD is Hospitalizing Provider. sharri 12:06 Warm blanket given. classroom monitor on. Pulse ox on. NIBP on. mh5 Administered Medications: 05:18 Not Given (Patient Refused): Zofran (Ondansetron) 4 mg IVP once; over 2 minutes ke1 05:18 Drug: Pepcid (famotidine) 20 mg Route: IVP; Site: right antecubital; ke1 05:18 Not Given (Patient Refused): morphine 2 mg IVP once; (PAIN>8) RASS on ADMN: Combtv4, ke1 Very Agttd3, Agttd2, Rstlss1, AlertClm0, Drwsy-1, LtSdtn-2, ModSdtn-3, DpSdtn-4, UnArsble-5 x2 05:50 Drug: NS 0.9% 1000 ml Route: IV; Rate: 1 bolus; Site: right antecubital; ke1 05:50 Drug: Unasyn (ampicillin-sulbactam) 3 grams Route: IVPB; Infused Over: 30 mins; Site: ke right antecubital; 06:34 Follow up: IV Status: Completed infusion ke1 06:33 Drug: vancoMYCIN 1 grams Route: IVPB; Infused Over: 2 hrs; Site: right antecubital; ke1 06:58 Drug: Magnesium Sulfate 2 grams Route: IVPB; Infused Over: 2 hrs; Site: left ke1 antecubital; 07:05 Drug: Potassium Effervescent Tablet 25 mEq Route: PO; ke1 07:05 Drug: NS 0.9% with KCl 20 mEq/L 1000 ml Route: IV; Rate: 125 ml/hr; Site: right ke1 antecubital; Medication: 04:37 VIS not applicable for this client. lp1 Outcome: 05:15 Decision to Hospitalize by Provider. sharri 18:14 Patient left the ED. iw Signatures: Dispatcher [employer] EDFer Dao MD MD cha Williams, Irene, RN Aleksandra Humphries RN RN lp1 Rosanne Scanlon [facility] Ricardo Gutierrez RN RN ke1
--- NOTE | 2021-12-10 05:15 | EDPHYS ---
Physician Documentation [facility] Name: Connie Buckley Age: 80 yrs Sex: Female : 1940 Arrival Date: 12/10/2021 Time: 04: Bed 27 Private MD: SHAR Physician Fer Crowell HPI: 12/10 05:09 This 80 yrs old Female presents to ER via EMS with complaints of General sharri Weakness, Vomiting. 05:09 The patient presents to the emergency department with nausea, vomiting, that is sharri intermittent. Onset: The symptoms/episode began/occurred 2 day(s) ago. Possible causes: unknown. The symptoms are aggravated by nothing. The symptoms are alleviated by nothing. remaining still. Associated signs and symptoms: The patient has no apparent associated signs or symptoms. Severity of symptoms: At their worst the symptoms were mild in the emergency department the symptoms are unchanged. The patient has not experienced similar symptoms in the past. Historical: - Allergies: 04:36 amlodipine besylate; lp1 04:36 Clonidine; lp1 04:36 Codeine; lp1 04:36 doxazosin; lp1 04:36 ezetimibe; lp1 04:36 Indomethacin; lp1 - PMHx: 04:36 Angina; Diabetes - NIDDM; Hyperlipidemia; Hypertension; Hypothyroidism; Mouth Cancer; lp1 TIA; - PSHx: 04:36 Partial tongue removal; Hysterectomy; lp1 - Immunization history:: Adult Immunizations up to date. - Social history:: Smoking status: Patient denies any tobacco usage or history of. - Family history:: not pertinent. ROS: 05:09 Constitutional: Negative for fever, chills, and weight loss, Eyes: Negative for injury, sharri pain, redness, and discharge, ENT: Negative for injury, pain, and discharge, Neck: Negative for injury, pain, and swelling, Cardiovascular: Negative for chest pain, palpitations, and edema, Respiratory: Negative for shortness of breath, cough, wheezing, and pleuritic chest pain, Back: Negative for injury and pain, : Negative for injury, bleeding, discharge, and swelling, MS/Extremity: Negative for injury and deformity, Skin: Negative for injury, rash, and discoloration, Psych: Negative for depression, anxiety, suicide ideation, homicidal ideation, and hallucinations, Allergy/Immunology: Negative for hives, rash, and allergies, Endocrine: Negative for neck swelling, polydipsia, polyuria, polyphagia, and marked weight changes, Hematologic/Lymphatic: Negative for swollen nodes, abnormal bleeding, and unusual bruising. 05:09 Abdomen/GI: Positive for nausea and vomiting. 05:09 Skin: Positive for cellulitis, of the right cheek. Exam: 05:09 Constitutional: This is a well developed, well nourished patient who is awake, alert, sharri and in no acute distress. Eyes: Pupils equal round and reactive to light, extra-ocular motions intact. Lids and lashes normal. Conjunctiva and sclera are non-icteric and not injected. Cornea within normal limits. Periorbital areas with no swelling, redness, or edema. ENT: Nares patent. No nasal discharge, no septal abnormalities noted. Tympanic membranes are normal and external auditory canals are clear. Oropharynx with no redness, swelling, or masses, exudates, or evidence of obstruction, uvula midline. Mucous membranes moist. Neck: Trachea midline, no thyromegaly or masses palpated, and no cervical lymphadenopathy. Supple, full range of motion without nuchal rigidity, or vertebral point tenderness. No Meningismus. Chest/axilla: Normal chest wall appearance and motion. Nontender with no deformity. No lesions are appreciated. Cardiovascular: Regular rate and rhythm with a normal S1 and S2. No gallops, murmurs, or rubs. Normal PMI, no JVD. No pulse deficits. Respiratory: Lungs have equal breath sounds bilaterally, clear to auscultation and percussion. No rales, rhonchi or wheezes noted. No increased work of breathing, no retractions or nasal flaring. Abdomen/GI: Soft, non-tender, with normal bowel sounds. No distension or tympany. No guarding or rebound. No evidence of tenderness throughout. Back: No spinal tenderness. No costovertebral tenderness. Full range of motion. Female : Normal external genitalia. MS/ Extremity: Pulses equal, no cyanosis. Neurovascular intact. Full, normal range of motion. Neuro: Awake and alert, GCS 15, oriented to person, place, time, and situation. Cranial nerves II-XII grossly intact. Motor strength 5/5 in all extremities. Sensory grossly intact. Cerebellar exam normal. Normal gait. Psych: Awake, alert, with orientation to person, place and time. Behavior, mood, and affect are within normal limits. 05:09 Skin: cellulitis, that is moderate, induration, that is mild is noted, located on the right cheek. 06:02 ECG was reviewed by the Attending Physician. [facility] Vital Signs: 04:31 BP 135 / 103; Pulse 106; Resp 17; Temp 98.5(O); Pulse Ox 97% on R/A; Weight 66.22 kg lp1 (R); Height 5 ft. 4 in. (162.56 cm); Pain 0/10; 04:31 Body Mass Index 25.06 (66.22 kg, 162.56 cm) lp1 MDM: 04:28 Patient medically screened. [facility] 05:12 Differential diagnosis: Nonspecific abd pain, gastritis, viral gastroenteritis, sharri gastroenteritis. Data reviewed: vital signs, nurses notes, lab test result(s), EKG, radiologic studies, plain films. Data interpreted: engine monitor: rate is 106 beats/min, rhythm is regular, Pulse oximetry: on room air is 97 %. Test interpretation: by ED physician or midlevel provider: ECG, plain radiologic studies. Counseling: I had a detailed discussion with the patient and/or guardian regarding: the historical points, exam findings, and any diagnostic results supporting the discharge/admit diagnosis, lab results, radiology results, the need for further work-up and treatment in the hospital. 12/10 04:30 Order name: Basic Metabolic Panel; Complete Time: 06:03 [facility] 12/10 04:30 Order name: CBC with Diff [facility] 12/10 04:30 Order name: LFT's; Complete Time: 06:03 [facility] 12/10 04:30 Order name: Magnesium; Complete Time: 06:03 [facility] 12/10 04:30 Order name: NT PRO-BNP; Complete Time: 06:03 [facility] 12/10 04:30 Order name: PT-INR; Complete Time: 05:31 [facility] 12/10 04:30 Order name: Troponin HS; Complete Time: 06:03 [facility] 12/10 04:30 Order name: Lipase; Complete Time: 06:03 [facility] 12/10 04:30 Order name: Lactate; Complete Time: 06:03 [facility] 12/10 04:30 Order name: Procalcitonin; Complete Time: 06:04 [facility] 12/10 04:30 Order name: Urine Culture [facility] 12/10 04:30 Order name: SARS-COV-2 RT PCR (Document "Date of Onset" if Symptomatic); Complete Time: [facility] 06:12/10 04:30 Order name: Blood Culture Adult (2) [facility] 12/10 05:28 Order name: Manual Differential EDMS 12/10 04:30 Order name: XRAY Chest (1 view) [facility] 12/10 04:30 Order name: EKG; Complete Time: 04:31 [facility] 12/10 04:30 Order name: Cardiac monitoring; Complete Time: 09: [facility] 12/10 04:30 Order name: EKG - Nurse/Tech; Complete Time: 09: [facility] 12/10 14:29 Order name: Potassium EDMS 12/10 14:29 Order name: Magnesium EDMS 12/10 04:30 Order name: IV Saline Lock; Complete Time: 05: [facility] 12/10 04:30 Order name: Labs collected and sent; Complete Time: 05: [facility] 12/10 04:30 Order name: O2 Per Protocol; Complete Time: : [facility] 12/10 04:30 Order name: O2 Sat Monitoring; Complete Time: : [facility] 12/10 04:30 Order name: Urine Dipstick-Ancillary (obtain specimen); Complete Time: 09:18 [facility] EC:02 Rate is 80 beats/min. Rhythm is regular. QRS [place] is Normal. IA interval is normal. QRS sharri interval is normal. QT interval is normal. No Q waves. T waves are Normal. No ST changes noted. Clinical impression: NSR w/ Non-specific ST/T Changes and No evidence of ischemia. Interpreted by me. Reviewed by me. Administered Medications: 05:18 Not Given (Patient Refused): Zofran (Ondansetron) 4 mg IVP once; over 2 minutes ke1 05:18 Drug: Pepcid (famotidine) 20 mg Route: IVP; Site: right antecubital; ke1 05:18 Not Given (Patient Refused): morphine 2 mg IVP once; (PAIN>8) RASS on ADMN: Combtv4, ke1 Very Agttd3, Agttd2, Rstlss1, AlertClm0, Drwsy-1, LtSdtn-2, ModSdtn-3, DpSdtn-4, UnArsble-5 x2 05:50 Drug: NS 0.9% 1000 ml Route: IV; Rate: 1 bolus; Site: right antecubital; ke1 05:50 Drug: Unasyn (ampicillin-sulbactam) 3 grams Route: IVPB; Infused Over: 30 mins; Site: ke1 right antecubital; 06:34 Follow up: IV Status: Completed infusion ke1 06:33 Drug: vancoMYCIN 1 grams Route: IVPB; Infused Over: 2 hrs; Site: right antecubital; ke1 06:58 Drug: Magnesium Sulfate 2 grams Route: IVPB; Infused Over: 2 hrs; Site: left ke1 antecubital; 07:05 Drug: Potassium Effervescent Tablet 25 mEq Route: PO; ke1 07:05 Drug: NS 0.9% with KCl 20 mEq/L 1000 ml Route: IV; Rate: 125 ml/hr; Site: right ke1 antecubital; Disposition Summary: 12/10/21 05:15 Hospitalization Ordered Hospitalization Status: Inpatient Admission sharri Provider: Carrington Arteaga cha Condition: Stable sharri Problem: new sharri Symptoms: have improved sharri Bed/Room Type: Standard sharri Location: Telemetry/MedSurg (Inpatient)(12/10/21 16:10) dw Room Assignment: 202(12/10/21 16:10) dw Diagnosis - Cellulitis and acute lymphangitis of face - right face/cheek sharri - Weakness sharri - Type 2 diabetes mellitus with hyperglycemia sharri - Vomiting sharri - Elevated white blood cell count sharri - Hypokalemia sharri - Hypomagnesemia sharri Forms: - Medication Reconciliation Form sharri - SBAR form sharri Signatures: Dispatcher [employer] EDWV Lou Reeves RN RN mw Woody, Diana RN Fer Inman MD MD cha Pena, Laura RN RN lp1 Ricardo Gutierrez RN RN ke1 Corrections: (The following items were deleted from the chart) 05:20 05:15 Telemetry/MedSurg (Inpatient) [facility] 05:20 05:15 sharri 16:10 05:20 BR ER HOLD [facility] 16:10 05:20 ERHOLD- [facility]
[2021-12-10 05:16] LABS: Protime INR 1.09
[2021-12-10 05:35] LABS: Albumin 3.2 g/dL (3.4-5.0); Bilirubin Direct 0.3 mg/dL (0-0.2); Bilirubin Total 1.2 mg/dL (0.2-1.0); Magnesium 1.5 mg/dL (1.8-2.4); Protein, Total 6.5 g/dL (6.4-8.2); Troponin High Sensitivity 19.4 pg/mL (<58.9)
[2021-12-10] MEDS ORDERED: NA CHLORIDE 0.9% 250 ML ONE (05:35)
[2021-12-10] MEDS ORDERED: VANCOMYCIN 1 GM/VIAL ONE (05:35)
[2021-12-10] MEDS ORDERED: AMPICILLIN/SULBACTAM 3GM/VIAL ONE ×3 (05:35→16:23)
[2021-12-10] MEDS ORDERED: NA CHLORIDE 0.9% 100 ML IV ONE ×3 (05:36→16:23)
[2021-12-10] MEDS ORDERED: NA CHLORIDE 0.9% 1,000 ML ONE ×2 (05:36→13:04)
[2021-12-10] MEDS ORDERED: POTASSIUM 25 MEQ EFFERV TAB ONE (06:52)
[2021-12-10] MEDS ORDERED: Magnesium Sulfate 2gm IVPB 2 G/50 ML BAG IV ONE (06:52)
[2021-12-10] MEDS ORDERED: KCL 20 MEQ/100 mL IVPB 100 ML IV ONE (06:52)
[2021-12-10 07:03] LABS: Blood Morphology Comment NOT SEEN (NOT SEEN); Platelet Estimate ADEQ
[2021-12-10] MEDS ORDERED: ONDANSETRON 4 MG/2 ML VIAL IV PRN (08:18)
[2021-12-10] MEDS ORDERED: MORPHINE 2 MG/ML SYR IV PRN (08:18)
[2021-12-10] MEDS: NA CHLORIDE 0.9% 1,000 ML IV SCH (08:18)
[2021-12-10] MEDS ORDERED: VANCOMYCIN 1 GM in NA CHLORIDE 0.9% 250 ML IVPB SCH (08:18)
[2021-12-10] MEDS: VANCOMYCIN 1.25 GM in NA CHLORIDE 0.9% 250 ML IVPB SCH (09:00)
[2021-12-10] MEDS ORDERED: FAMOTIDINE 20 MG/2 ML VIAL IV SCH (09:00)
[2021-12-10] MEDS ORDERED: ENOXAPARIN 40 MG/0.4 ML SQ ONE (09:57)
[2021-12-10] MEDS: AMPICILLIN/SULBACT 3 GM in NA CHLORIDE 0.9% 100 ML IVPB SCH ×3 (10:41→17:03)
[2021-12-10] MEDS: ENOXAPARIN 40 MG/0.4 ML SQ SCH (10:42)
--- NOTE | 2021-12-10 11:23 | EKG ---
Test Date: 2021-12-10 Test Time: 05:55:39 Identifier Horse: CADY MEASUREMENT RESULTS: Intervals: Rate: 80 SD: 152 QRSD: 104 QT: 398 QTc: 459 [place]: P: 23 SD: 152 QRS: 15 T: 50 INTERPRETIVE STATEMENTS: Normal sinus rhythm with sinus arrhythmia Normal ECG Compared to ECG 12/20/2020 06:34:22 Sinus bradycardia no longer present Myocardial infarct finding no longer present Electronically Signed On 12-10-21 11:23:12 CDT by Jb Alejandro
--- NOTE | 2021-12-10 13:47 | RAD REPORT ---
EXAM DESCRIPTION: XR Chest 1 View AP CLINICAL HISTORY: Cough COMPARISON: Chest 1 View AP 12/20/2020 report without images TECHNIQUE: Chest 1 View AP FINDINGS: Trachea midline. Heart size and pulmonary vessels within normal limits. Lungs clear without evidence of consolidation, mass, or significant pulmonary edema. No significant pleural effusion or pneumothorax. Mild right hemidiaphragm elevation. Bilateral shoulder DJD. Thoracic spine degenerative disease. IMPRESSION: Unremarkable chest radiograph. Electronically signed by: Roland Ny MD 12/10/2021 5:19 AM CDT Due to temporary technical issues with the PACS/Fluency reporting system, reports are being signed by the in house radiologist without review as a courtesy to ensure prompt reporting. The interpreting r adiologist is fully responsible for the content of the report.
[2021-12-10 13:49] VITALS: BMI 25.0
[2021-12-10 14:25] LABS: Magnesium 2.2 mg/dL (1.8-2.4); Potassium 4.5 mmol/L (3.5-5.1)
[2021-12-10] MEDS ORDERED: GLUCAGON 1 MG/VIAL IM PRN (21:01)
[2021-12-10] MEDS ORDERED: D50W 25 GM/50 ML SYRINGE IV PRN (21:01)
[2021-12-10] MEDS ORDERED: D10W 125 ML IV PRN (21:45)
[2021-12-11] MEDS ORDERED: NA CHLORIDE 0.9% 100 ML ONE (00:10)
[2021-12-11] MEDS: AMPICILLIN/SULBACT 3 GM in NA CHLORIDE 0.9% 100 ML IVPB SCH ×5 (00:49→23:33)
[2021-12-11] MEDS: NA CHLORIDE 0.9% 1,000 ML IV SCH ×2 (04:18→06:07)
--- NOTE | 2021-12-11 05:22 | HP ---
Date of Admission: 12/10/2021 Chief Complaint: Redness of the face and pain. History Of Present Illness: This is a 80-year-old very pleasant female patient who came into the emergency room with worsening redness, some swelling, and pain over the right side of her face in last few days. The patient goes to [facility] for her cancer treatment on a regular basis. Her last appointment was past week on when she had a CAT scan and MRI done on her face and neck area and reports that as of next week she is supposed to start radiation treatment for 5 days for her recurrent cancer problem. Meanwhile, she ends up in emergency room with this and after she was evaluated in the ER, she was admitted to the hospital with cellulitis problem. I saw her in the emergency room. She denies any fever, chills. Medications: List reviewed. Review of Systems: Dermatology: As mentioned above. All other systems reviewed and negative. Allergies: TO CODEINE CAUSING ITCHING, INDOMETHACIN CAUSING SHORTNESS OF BREATH, CLONIDINE AND DOXAZOSIN CAUSING NAUSEA, AND ZETIA CAUSING BACK PAIN. Past Medical History: Significant for hypertension, hyperlipidemia, coronary artery disease, COVID-19 infection on September 17, 2020, peripheral neuropathy, squamous cell carcinoma of tongue, melanoma of back, hypothyroidism, type 2 diabetes mellitus, gastroesophageal reflux disease, chronic kidney disease, osteoarthritis at multiple sites, lichen planus, and hypomagnesemia. Past Surgical History: Surgery for tongue cancer, hysterectomy, removal of melanoma, and back surgery. Family History: Father had coronary artery disease. Mother had coronary artery disease. Social History: Negative for smoking and alcohol use. Physical Examination: Vital Signs: Height 5 feet 4 inches, weight 145 pounds, temperature 98.5, pulse 106, respiratory rate 17, blood pressure 135/103. General: Awake, alert, oriented, not in distress. HEENT: Head atraumatic, normocephalic. Conjunctivae nonerythematous. Sclerae white. Mouth, right inner buccal mucosa has some whitish colored scar tissue. Ears/Nose, no mass, lesion, discharge noted. Face, her entire right cheek is red with some soft tissue induration and slightly tender to touch. Neck: Supple. No JVD, lymph nodes, bruit, thyromegaly noted. Lungs: Bilateral good equal air entry. Clear to auscultation. No rhonchi. No rales. Heart: Normal heart sounds, no murmur or gallop. Abdomen: Soft, bowel sounds normal. No guarding, rigidity, tenderness, mass, hepatosplenomegaly, distention, or bruit noted. Extremities: No leg edema. No calf tenderness. Skin: No rash, ulcer, cellulitis. Lymphatics: No lymph node enlargement in neck, supraclavicular, infraclavicular region. Neuro: No focal neurological deficit. Chest: Unremarkable. External Genitalia: Deferred. Rectal: Deferred. Laboratory Data: White count 15.7, hemoglobin 12.4, platelets 201. Sodium 136, potassium 3, chloride 105, bicarb 20, BUN 18, creatinine 1.03, glucose 178, magnesium 1.5, total bilirubin 1.2, direct bilirubin 0.3, AST 13, ALT 15, alkaline phosphatase 71. Troponin 19.4, procalcitonin 6.35. Lactic acid 1.5. COVID-19 test negative. Impression: 1. Cellulitis, face. 2. Hypokalemia. 3. Hypomagnesemia. 4. Squamous cell carcinoma of tongue, recurrent. 5. Coronary artery disease. 6. Hypertension. 7. Mixed hyperlipidemia. 8. Type 2 diabetes mellitus. 9. Coronary artery disease. 10. Gastroesophageal reflux disease. Plan: We will go ahead and admit the patient to hospital for further evaluation and management of this problem. The patient is appropriate for inpatient and is expected to spend 2 midnights in hospital. We will start the patient on DVT prophylaxis using Lovenox. Empiric antibiotic was started, we will continue that. Replace electrolyte, which is potassium and magnesium per protocol. We will start her on a regular diet. Home medications will be continued per order. I will see her tomorrow morning for followup. Details and plan of treatment discussed with her. RASHMI/MODPorsche Voice ID: [id number] MTDD
[2021-12-11 05:24] LABS: Absolute Lymphocytes (CBC) 0.7 K/uL (0.7-4.9); Hematocrit 34.2 % (36.0-45.0); Lymphocytes % 6.5 % (15.3-44.8); MPV 8.4 fL (7.6-11.3); RBC Red Blood Cell Count 3.79 M/uL (3.86-4.86)
[2021-12-11 05:42] LABS: Magnesium 1.8 mg/dL (1.8-2.4); Potassium 3.6 mmol/L (3.5-5.1)
[2021-12-11] MEDS: INSULIN -REGULAR HUMAN 50 UNIT/0.5 ML ML SQ SCH ×4 (07:30→21:00)
[2021-12-11] MEDS: VANCOMYCIN 1.25 GM in NA CHLORIDE 0.9% 250 ML IVPB SCH (09:03)
[2021-12-11] MEDS: ENOXAPARIN 40 MG/0.4 ML SQ SCH (09:04)
[2021-12-11] MEDS: ISOSORBIDE MONO SR 30 MG TAB PO SCH (09:04)
[2021-12-11] MEDS: METOPROLOL TAR 25 MG TAB PO SCH ×2 (09:05→21:28)
[2021-12-11] MEDS: ASPIRIN EC 81 MG TAB PO SCH (09:05)
[2021-12-11] MEDS: FAMOTIDINE 20 MG TAB PO SCH ×2 (09:06→21:28)
[2021-12-11] MEDS: ACETAMINOPHEN 325 MG TABLET PO PRN (09:19)
--- NOTE | 2021-12-11 22:43 | PN ---
Date of Progress Note: 12/11/2021 Subjective: The patient was seen this morning for followup. No new complaints or problems reported by the patient. Overall, the patient feels better, but not back to her normal self. She still feels weaker than normal, but overall better than yesterday. No nausea, no vomiting. No shortness of bud ath. No abdominal pain. Objective: Vital Signs: Reviewed. HEENT: Unremarkable. Her face examination shows significant improvement in the redness and swelling of the right cheek that was noted yesterday has almost completely resolved now. Lungs: Clear to auscultation. Heart: Heart sounds normal. Abdomen: Soft, bowel sounds normal. No guarding, rigidity, tenderness, or distention. Extremities: No leg edema. Laboratory Data: White count 10.5, hemoglobin 11.3, platelets 163. Sodium 139, potassium 3.6, chlor maribel 110, bicarb 23, BUN 16, creatinine 0.93, glucose 123, magnesium 1.8. Blood cultures; all the 4 b ottles of blood culture is growing some bacteria, definite identification and sensitivity result is p ending. Impression: 1.Sepsis. 2.Cellulitis, face. 3.Hypertension. 4.Coronary artery disease. 5.Type 2 diabetes mellitus. Plan: We will go ahead and continue current empiric antibiotic, which is Unasyn and vancomycin. The patient's WBC count is normal. Overall cellulitis changes from face have resolved. We will follow up on the blood culture results and echo with Doppler was ordered to rule out any vegetation. Contin ue DVT prophylaxis. The patient has significant generalized weakness and fall precaution was ordered and physical therapy will be consulted to help ambulate her. I will see her tomorrow for followup. RASHMI/MODL Voice ID: [id number] Report ID: [id number]
[2021-12-12] MEDS: AMPICILLIN/SULBACT 3 GM in NA CHLORIDE 0.9% 100 ML IVPB SCH ×4 (05:10→23:48)
[2021-12-12] MEDS: INSULIN -REGULAR HUMAN 50 UNIT/0.5 ML ML SQ SCH ×4 (07:30→21:00)
[2021-12-12] MEDS ORDERED: VANCOMYCIN 1.25 GM in NA CHLORIDE 0.9% 250 ML IVPB SCH (09:00)
[2021-12-12] MEDS: FAMOTIDINE 20 MG TAB PO SCH ×2 (09:01→21:07)
[2021-12-12] MEDS: ASPIRIN EC 81 MG TAB PO SCH (09:01)
[2021-12-12] MEDS: METOPROLOL TAR 25 MG TAB PO SCH ×2 (09:01→21:08)
[2021-12-12] MEDS: ISOSORBIDE MONO SR 30 MG TAB PO SCH (09:01)
[2021-12-12] MEDS: ENOXAPARIN 40 MG/0.4 ML SQ SCH (09:01)
--- NOTE | 2021-12-12 09:17 | RAD REPORT ---
EXAM DESCRIPTION: US - Renal Ultrasound-Complete - 12/12/2021 8:41 am CLINICAL HISTORY: sepsis COMPARISON: Abdomen Pelvis W Contrast dated 12/08/2020 FINDINGS: Both kidneys are normal in size, shape and echotexture. The right kidney measures 10.5 cm. Small simple appearing right renal cysts, largest measuring approx imately 1 cm. The left kidney measures 8.7 cm. Simple left renal cysts, the largest measuring 3.6 Cm The urinary bladder is incompletely distended without gross abnormality seen. IMPRESSION: No hydronephrosis. Bilateral renal cysts.
--- NOTE | 2021-12-12 11:02 | RAD REPORT ---
EXAM DESCRIPTION: US - Urinary Bladder - 12/12/2021 8:41 am CLINICAL HISTORY: sepsis COMPARISON: Urinary Bladder dated 05/22/2018; Renal Ultrasound-Complete dated 12/12/2021 FINDINGS: No gross abnormalities of the bladder identified. Post-void residual volume: 36 mL IMPRESSION: Postvoid residual is within normal limits.
--- NOTE | 2021-12-12 12:41 | ECHO ---
HEIGHT: 5 ft 4 in WEIGHT: 145 lb 15.842 oz DATE OF STUDY: 12/11/[address]: Carrington Arteaga MD 2-DIMENSIONAL: YES M.MODE: YES DOPPLER: YES COLOR FLOW: YES TDS: PORTABLE: YES DEFINITY: BUBBLE STUDY: DIAGNOSIS: RULE OUT VEGETATION CARDIAC HISTORY: CATHERIZATION: SURGERY: PROSTHETIC VALVE: PACEMAKER: MEASUREMENTS (cm) DIASTOLIC (NORMALS) SYSTOLIC (NORMALS) IVSd 0.8 (0.6-1.2) LA Diam 3.8 (1.9-4.0) LVEF 67% LVIDd 4.7 (3.5-5.7) LVIDs 3.0 (2.0-3.5) %FS 37% LVPWd 0.8 (0.6-1.2) Ao Diam 2.4 (2.0-3.7) 2 DIMENSIONAL ASSESSMENT: RIGHT ATRIUM: NORMAL LEFT ATRIUM: NORMAL RIGHT VENTRICLE: NORMAL LEFT VENTRICLE: NORMAL TRICUSPID VALVE: NORMAL MITRAL VALVE: NORMAL PULMONIC VALVE: NORMAL AORTIC VALVE: POSSIBLE VEGETATION PERICARDIAL EFFUSION: NONE AORTIC ROOT: NORMAL LEFT VENTRICULAR WALL MOTION: NORMAL DOPPLER/COLOR FLOW: NORMAL COMMENTS: POSSIBLE AORTIC VALVE VEGETATION. NORMAL LEFT VENTRICULAR SIZE AND FUNCTION. MILF TRICUSPID REGURGITATION. NORMAL RIGHT VENTRICULAR SYSTOLIC PRESSURE. TECHNOLOGIST: AZUL SHAVER
[2021-12-12] MEDS: LEVOTHYROXINE SOD 0.075 MG TAB PO SCH (13:39)
--- NOTE | 2021-12-13 00:10 | PN ---
Date of Progress Note: 12/12/2021 Subjective: The patient was seen this morning for followup. No new complaints or problems reported by the patient. She is feeling much better today. Ambulating without much difficulty and her weakne ss. Objective: Heart: On auscultation, heart sounds normal. Abdomen: Soft. Bowel sounds normal. No guarding, rigidity, tenderness, distention. Extremities: No leg edema. Laboratory Data: Blood culture growing gram-negative rods. Impression: 1.Sepsis, organism gram-negative. 2.Hypertension. 3.Hyperlipidemia. 4.Type 2 diabetes mellitus. Plan: We will go ahead and continue Unasyn and we will stop vancomycin as the patient has gram-negat mindy sepsis. We will follow up on blood culture results. Once we have definite identification and se nsitivity result done, we will decide about culture-specific antibiotics. Ultrasound of kidney and b ladder was ordered. The patient did not get any ER analysis done in my office before starting antibi otics and there is no use of getting any urine test done at this point since she has been on antibiot ic for almost 48 hours now. She is clinically improving very well. We will repeat blood work tomorr ow, and I will see her tomorrow for followup. RASHMI/MODL Voice ID: [id number] Report ID: [id number]
[2021-12-13] MEDS: AMPICILLIN/SULBACT 3 GM in NA CHLORIDE 0.9% 100 ML IVPB SCH (06:04)
[2021-12-13] MEDS: LEVOTHYROXINE SOD 0.075 MG TAB PO SCH (06:07)
[2021-12-13 06:11] LABS: Hematocrit 36.2 % (36.0-45.0); MPV 8.5 fL (7.6-11.3); RBC Red Blood Cell Count 4.02 M/uL (3.86-4.86)
[2021-12-13 06:12] LABS: Absolute Lymphocytes (CBC) 1.4 K/uL (0.7-4.9); Lymphocytes % 23.5 % (15.3-44.8)
[2021-12-13 06:22] LABS: Magnesium 1.9 mg/dL (1.8-2.4); Potassium 3.3 mmol/L (3.5-5.1)
[2021-12-13] MEDS: INSULIN -REGULAR HUMAN 50 UNIT/0.5 ML ML SQ SCH ×4 (07:30→21:00)
[2021-12-13] MEDS: FAMOTIDINE 20 MG TAB PO SCH ×2 (08:35→21:12)
[2021-12-13] MEDS: METOPROLOL TAR 25 MG TAB PO SCH ×2 (08:35→21:12)
[2021-12-13] MEDS: ISOSORBIDE MONO SR 30 MG TAB PO SCH (08:36)
[2021-12-13] MEDS: PIPER TAZO 3.375 GM in NA CHLORIDE 0.9% 100 ML IV SCH ×2 (08:36→17:25)
[2021-12-13] MEDS: ASPIRIN EC 81 MG TAB PO SCH (08:37)
[2021-12-13] MEDS: ENOXAPARIN 40 MG/0.4 ML SQ SCH (08:37)
[2021-12-13] MEDS ORDERED: LEVOTHYROXINE SOD 0.075 MG TAB PO SCH (12:46)
[2021-12-13] MEDS: ACETAMINOPHEN 325 MG TABLET PO PRN (17:42)
[2021-12-13] MEDS ORDERED: POTASSIUM CL SA 10 MEQ TAB PO ONE (20:20)
[2021-12-14] MEDS: PIPER TAZO 3.375 GM in NA CHLORIDE 0.9% 100 ML IV SCH ×3 (01:01→17:52)
--- NOTE | 2021-12-14 03:25 | PN ---
Date of Progress Note: 12/13/2021 Subjective: The patient was seen this morning for followup. No new complaints or problems reported by patient. She was lying in bed. She still has generalized weakness, but overall she seems to be i mproving in last 24-36 hours as she reports. Denies any abdominal pain, nausea, vomiting. No chest pain. No shortness of breath. Objective: Vital Signs: Reviewed. HEENT: Unremarkable. Lungs: Clear to auscultation. Heart: Heart sounds normal. Abdomen: Soft. Bowel sounds normal. No guarding, rigidity, tenderness, distention. Extremities: No leg edema. Laboratory Data: White count , hemoglobin 11.9, platelets 204. Sodium 139, potassium 3.6, chloride 110, bicarb 23, BUN 16, creatinine 0.93, glucose 123. Echocardiogram results shows normal ejection fraction, possibility of vegetation on aortic wall repor bertha. Impression: 1.Sepsis, organism Escherichia coli. 2.Rule out endocarditis. 3.Anemia, unspecified. 4.Coronary artery disease. 5.Hypertension. 6.Hyperlipidemia. Plan: We will go ahead and consult boatswains mate. Details were discussed with boatswains mate Dr. Cecile gordon, who is going to evaluate the patient regarding my concerns about possibility of endocarditis on b asis of echocardiogram finding, we need to rule that out and the patient will need transesophageal ec ho, which cannot be done at our facility and I have discussed details with Dr. Marie, who will be ab santillan to assist with that and he will assist with transferring patient to another hospital where further evaluation will be completed. Details and plan of treatment discussed with the patient. I will see her tomorrow for followup. RASHMI/MODL Voice ID: [id number] Report ID: [id number]
[2021-12-14] MEDS: LEVOTHYROXINE SOD 0.075 MG TAB PO SCH (06:54)
[2021-12-14] MEDS: INSULIN -REGULAR HUMAN 50 UNIT/0.5 ML ML SQ SCH ×4 (07:30→19:35)
[2021-12-14] MEDS ORDERED: POTASSIUM CL SA 10 MEQ TAB PO ONE (09:00)
[2021-12-14] MEDS ORDERED: AMLODIPINE 5 MG TAB PO SCH (09:00)
[2021-12-14] MEDS: ENOXAPARIN 40 MG/0.4 ML SQ SCH (09:45)
[2021-12-14] MEDS: lisinopriL 5 MG TAB PO SCH (09:45)
[2021-12-14] MEDS: ISOSORBIDE MONO SR 30 MG TAB PO SCH (09:45)
[2021-12-14] MEDS: METOPROLOL TAR 25 MG TAB PO SCH ×2 (09:46→20:17)
[2021-12-14] MEDS: ASPIRIN EC 81 MG TAB PO SCH (09:46)
[2021-12-14] MEDS: FAMOTIDINE 20 MG TAB PO SCH ×2 (09:46→20:18)
[2021-12-14] MEDS: Levofloxacin500mg IV 500 MG/100 ML BAG IV SCH (19:35)
[2021-12-14 21:18] VITALS: O2SAT 98
--- NOTE | 2021-12-14 22:07 | PN ---
Date of Progress Note: 12/14/2021 Subjective: The patient was seen by bedside completely asymptomatic. No fever. Feels very well. M ental status is great. There is no chest pain, shortness of breath, orthopnea, or cough. No nausea, vomiting, or diarrhea. All other systems were reviewed and they were negative. Physical Examination: Vital Signs: Temperature is 97.5, pulse 63, breathing at 15, blood pressure 179/82, saturating 96%. General: Pleasant elderly female, no apparent distress. Head and Neck: Pupils are equal, reactive to light. Intact eye movements. No JVD. No cervical lym phadenopathy. Neck is supple. Thyroid is not enlarged. Lungs: Clear to auscultation bilaterally. No rhonchi, rales, or crackles. No accessory muscle use. Heart: Regular rate and rhythm. No extra sounds. Abdomen: Soft, nontender. Bowel sounds positive. No organomegaly. No masses or hernia. No rigidi ty or rebound. Extremities: No clubbing or cyanosis. Intact pulses. Skin: No rashes. Neurologic: Alert, awake, and oriented x3. No acute deficit appreciated. Lymph Nodes: No cervical or axillary lymphadenopathy. Investigations: White blood cell count today is 6000 and creatinine is 0.98. Assessment And Recommendations: Bacteremia. There was a concern of possible aortic valve endocardit is. I evaluated the echo carefully and there was some artifact on the imaging, but the valve leaflet s appear to be clear of any vegetation and there was no aortic valve regurgitation. At this point, t he patient had Escherichia coli bacteremia, which is likely coming from a urinary tract infection and Escherichia coli is rarely to cause endocarditis. As such, I recommend to continue antibiotics as t he patient is clinically and hemodynamically stable, and we will follow the patient as an outpatient in a week and repeat an echo to assure that the valves are still intact and we will monitor her clini christy. I do not feel that there is any need to do any further cardiac workup at this point and we wi ll plan for repeat echo in about one week on an outpatient basis. Discussed the case with Dr. Arteaga, primary care physician, and thank you for allowing me to participate in your patient's care. /TRISTA Voice ID: [id number] Report ID: [id number]
[2021-12-15 05:55] LABS: Absolute Lymphocytes (CBC) 1.4 K/uL (0.7-4.9); Hematocrit 34.3 % (36.0-45.0); Lymphocytes % 21.9 % (15.3-44.8); MPV 8.1 fL (7.6-11.3); RBC Red Blood Cell Count 3.83 M/uL (3.86-4.86)
[2021-12-15 06:13] LABS: Magnesium 1.8 mg/dL (1.8-2.4); Potassium 3.9 mmol/L (3.5-5.1)
[2021-12-15] MEDS: LEVOTHYROXINE SOD 0.075 MG TAB PO SCH (06:32)
[2021-12-15] MEDS: INSULIN -REGULAR HUMAN 50 UNIT/0.5 ML ML SQ SCH (07:30)
--- NOTE | 2021-12-15 07:31 | PN ---
Date of Progress Note: 12/14/2021 Subjective: The patient was seen this morning for followup. Her was with me at bedside. Ov erall she feels better. Her generalized weakness is much better. She is ambulating well in the room . Appetite is improving. Denies any chest pain, shortness of breath, nausea, vomiting. No diarrhea . Objective: Vital Signs: Reviewed. The patient remains afebrile. HEENT: Examination unremarkable. Lungs: Clear to auscultation. Heart: Sounds normal. Abdomen: Soft, bowel sounds normal. No guarding, rigidity, tenderness, distention. Extremities: No leg edema. Laboratory Studies: Blood cultures growing E coli. Impression: 1.Sepsis, organism Escherichia coli. 2.Hypertension. 3.Rule out endocarditis. Plan: The patient's blood pressure was elevated, lisinopril was started this morning for blood press ure control. We will continue other current antihypertensive medication. The patient is on IV antib iotic, and I did talk to Dr. Marie, who has reviewed the patient's echocardiogram that was done at [facility] today, and informed me that he does not believe that the patient has any vegetation at al l on the aortic valve, and there is no evidence of aortic regurgitation at all, which is expected to see with endocarditis if it is involving this aortic valve. In any case, he does not believe that th ere is any reason for any concern about endocarditis or vegetation. He has suggested that the patien t can go home with a repeat echocardiogram to be done at his office next week. The patient has remai mike afebrile. She is hemodynamically stable, and so far we have not been able to get her transferred to [facility] as Dr. Marie had told, but after he reviewed this, he feels very confident t hat this is not endocarditis. So, what I will do is, we will change her antibiotics to Levaquin and I will see her tomorrow. I will explain all these details to the patient and we will possibly discha rge her to go home tomorrow with 2 weeks of Levaquin, outpatient followup at my office next week and Dr. Marie next week. Echocardiogram to be done at his office next week. RASHMI/MODL Voice ID: [id number] Report ID: [id number]
[2021-12-15] MEDS: Levofloxacin500mg IV 500 MG/100 ML BAG IV SCH (08:21)
[2021-12-15] MEDS: lisinopriL 5 MG TAB PO SCH (08:22)
[2021-12-15] MEDS: ENOXAPARIN 40 MG/0.4 ML SQ SCH (08:23)
[2021-12-15] MEDS: FAMOTIDINE 20 MG TAB PO SCH (08:23)
[2021-12-15] MEDS: ASPIRIN EC 81 MG TAB PO SCH (08:23)
[2021-12-15] MEDS: METOPROLOL TAR 25 MG TAB PO SCH (08:23)
[2021-12-15] MEDS: ISOSORBIDE MONO SR 30 MG TAB PO SCH (08:23)
[2021-12-15 08:24] VITALS: BP 186/84; TEMP 97.4
[2021-12-15] MEDS ORDERED: MAGNESIUM SULFATE 1 gm IVPB 1 GM/100 ML BAG IV ONE (09:00)
[2021-12-15] MEDS ORDERED: POTASSIUM CL SA 10 MEQ TAB PO ONE (09:00)
--- NOTE | 2021-12-15 11:22 | DS ---
Date of Discharge: 12/15/2021 Disposition: Discharged to go home. Physical Examination: HEENT: Unremarkable. Lungs: Clear to auscultation. Heart: Sounds normal. Abdomen: Soft, bowel sounds normal. No guarding, rigidity, tenderness, or distention. Extremities: No leg edema. Discharge Medications And Instructions: 1.Continue all prior home medications. 2.Take Levaquin 500 mg by mouth daily for 2 weeks, starting tomorrow morning and prescription will b e sent to your pharmacy from my office. 3.Followup in my office and Dr. Marie next week. Laboratory Data: Upon admission, white count 15.7, hemoglobin 12.4, platelets 201. Today, white cou nt 6.2, hemoglobin 11.4, platelets 239. Last chemistry today, sodium 139, potassium 3.9, chloride 10 9, bicarb 23, BUN 15, creatinine 0.98, glucose 95, magnesium 1.8. Procalcitonin 1.31 today. Upon ad mission, her procalcitonin was 6.35. Upon admission, sodium 136, potassium 3, chloride 105, bicarb 2 0, BUN 18, creatinine 1.03, magnesium 1.5. Liver function tests unremarkable. Her renal ultrasound was unremarkable except bilateral renal cyst. Bladder ultrasound was unremarkable. Echocardiogram s howed normal ejection fraction 67% and Dr. Alejandro who read echocardiogram raised possibility of aort ic wall vegetation, but there was no evidence of any aortic wall regurgitation. Hospital Course: This is a year-old very pleasant female patient, admitted to the [facility] with redness of her face and pain. Please see dictated H and P for more information. The patient was evaluated in the emergency room and admitted to the hospital with cellulitis of her face. Her bl ood culture that was collected in the emergency room, all the 4 bottles out of 4 bottles came back gr owing E coli. Initially, patient was on Unasyn and vancomycin. As soon as we got preliminary blood culture result that it was gram-negative rods, at that time we discontinued vancomycin and her Unasyn was continued and following day, we stopped Unasyn and started her on Zosyn once we got a specific c ulture result and sensitivity result back. Echocardiogram raised possibility of vegetation on the ao rtic wall and Cardiology was consulted. Dr. Marie who evaluated her yesterday and reviewed echocard iogram again and he informed me that he does not believe that the patient has any vegetation at all. . He has recommended the patient can go home and he will repeat another echocardiogram at his office. He did initially try to transfer her to [facility], but because the hospital w as full, there were no beds available, we were not able to transfer but meanwhile with this informati on yesterday that Dr. Marie is providing us, the patient feels comfortable going home and I feel com fortable discharging her in stable condition. She has remained afebrile and there is no heart murmur on examination. All these details were discussed with the patient by me as well as Dr. Marie. Her low potassium and low magnesium were corrected. Final Diagnoses: 1.Sepsis, organism Escherichia coli. 2.Cellulitis, face. 3.Hypokalemia. 4.Hypomagnesemia. 5.Anemia, unspecified. 6.Squamous cell carcinoma of tongue, recurrent. 7.Coronary artery disease. 8.Hypertension. 9.Mixed hyperlipidemia. 10.Type 2 diabetes mellitus. 11.Gastroesophageal reflux disease. RASHMI/MODL Voice ID: [id number] Report ID: [id number]
--- NOTE | 2021-12-15 12:32 | PN ---
Date of Progress Note: 12/15/2021 Subjective: Seen by bedside. She is doing well, completely asymptomatic. No fever. No chest pain, shortness of breath, orthopnea, or cough. No nausea, vomiting, diarrhea. All other systems reviewe d and are negative. Physical Examination: Vital Signs: Temperature is 97.4, pulse 72, breathing at 18, blood pressure is 147/63, saturating 98 % on room air. General: Pleasant elderly female, in no apparent distress. Head and Neck: Pupils are equal, reactive to light. Intact eye movements. No JVD. No cervical lym phadenopathy. Neck: Supple. Thyroid is not enlarged. Lungs: Clear to auscultation bilaterally. No rhonchi, rales, or crackles. No accessory muscle use. Heart: Regular rate and rhythm. No extra sounds. Abdomen: Soft, nontender. Bowel sounds positive. No organomegaly. No masses or hernia. No rigidi ty or rebound. Extremities: No edema, clubbing, or cyanosis. Intact pulses. Skin: No rash. Neurologic: Alert, awake, oriented x3. No acute focal deficits appreciated. Investigations: Hemoglobin is 11.4, white blood cell count is 6.2, and creatinine is 0.98. Assessment And Recommendations: 1.Bacteremia with Escherichia coli, likely urinary tract in origin, on appropriate antibiotic therap y. 2.Concern for endocarditis as outlined on yesterday's note and I do not believe there was any aortic valve involvement. Exam is unremarkable. There is no regurgitation and there is no discrete vegeta tion that was seen. At this point, I recommend to continue antibiotics by mouth for a full course of 2 weeks and okay from cardiac standpoint to be discharged and have her follow up in the office with Dr. Alejandro sometimes early next week and we will obtain an echocardiogram to further confirm that th e aortic valve is clear of any infection. Thank you for the consult. /TRISTA Voice ID: [id number] Report ID: [id number]
--- NOTE | 2021-12-16 14:14 | CON ---
Date of Consultation: 12/13/2021 Reason For Consultation: Possible endocarditis with an aortic valve vegetation. History Of Present Illness: Ms. Arango is 80. Has had a history of diabetes, hypertension, dyslip idemia, and CVA. Came in with sepsis. Echocardiogram showed a possible aortic valve vegetation. Dr Libertad Arteaga is asking transfer the patient for a transesophageal echocardiogram and further danny luation. The patient denied any cardiac symptoms herself. Past Medical History: As stated above. Allergies: SHE IS ALLERGIC TO CODEINE, CARDURA, AND INDOCIN. Medications: Presently listed by Dr. Arteaga. Review of Systems: Negative. Social History: Negative. Family History: Negative. Present Medications: Include aspirin, Lovenox, Jardiance, metoprolol, and antibiotics. Physical Examination: Vital Signs: Stable, afebrile, sinus rhythm. HEENT: Negative. Neck: Supple with no bruit. Chest: Clear. Cardiac: Revealed regular rhythm and rate. No murmurs, gallops, or rubs. Abdomen: Benign. Extremities: Revealed no clubbing, cyanosis, or edema. There was no evidence of endocarditis periph erally. Diagnostic Data: As stated earlier. Impression And Plan: 1.Sepsis with possible endocarditis with possible vegetation of the aortic valve. I agree with pres ent antibiotic regimen transesophageal echocardiogram. 2.Hypertension. 3.Diabetes. 4.Dyslipidemia. 5.History of cerebrovascular accident. Continue her other regimen otherwise. Case is discussed wit h Dr. Arteaga, who will attempt to transfer starting today. VISHNU/MODL Voice ID: [id number] Report ID: [id number]
== END 2021-12-15 12:04 | disposition home or self-care (01) | DRG 872 ==
LOC: ER 04:15 → ERHOLD 05:20 → 2ND 18:59
PROVIDERS: ADMIT Internal Medicine; ATTEND Internal Medicine
DX: A41.51 Sepsis due to Escherichia coli [E. coli] (principal); L03.211 Cellulitis of face; E87.6 Hypokalemia; E83.42 Hypomagnesemia; D64.9 Anemia, unspecified; I25.10 Atherosclerotic heart disease of native coronary artery without angina pectoris; E78.2 Mixed hyperlipidemia; I10 Essential (primary) hypertension; E11.9 Type 2 diabetes mellitus without complications; K21.9 Gastro-esophageal reflux disease without esophagitis; C02.9 Malignant neoplasm of tongue, unspecified; E03.9 Hypothyroidism, unspecified; Z86.16 Personal history of COVID-19; Z20.822 Contact with and (suspected) exposure to COVID-19
CPT/HCPCS: 36415; 71045; 76770; 76857; 80048; 80076; 82947; 83605; 83690; 83735; 83880; 84132; 84145; 84484; 85025; 85610; 87040; 87077; 87086; 87088; 87186; 87205; 93005; 93306; 97116; 97161; 97530; 99284; J0295; J1650; J2270; J2405; J2543; J3370; J3475; J3480; J3490; J7030; J7050; U0003

== ENCOUNTER 2022-05-03 07:27 | Inpatient (IN) | payer OTHER ==
--- OUTSIDE RECORDS SUMMARY | 2022-05-03 07:32 | XMS REPORT | Clinical Summary ---
:1940 Author Organization [facility] MD [facility] Address [address] [place] [address] Care Team Providers Name Role Phone Opal Ly MD Primary Care Provider Neva Bloom Unavailable Unavailable Faraz Luna MD Unavailable Allergies Active Allergy Reactions Severity Noted [...] Active (CRESTOR) 5 mg MOUTH TWO TIMES tablet A WEEK rosuvastatin Take 5 mg by 0 Disc ontinued (CRESTOR) 5 mg mouth 2 (two) 021 ( Therapy completed) tablet times a week [facility]. aspirin 81 mg EC Take 81 mg by 0 Discontinued tablet mouth daily. 021 (Therap y completed) isosorbide TK 1 T PO D 0 12/11/2019 Discon tinued mononitrate (IMDUR) 021 (Therapy completed) 30 mg 24 hr tablet traMADol (Ultram) 50 Take 1 tablet 30 tablet 0 02/16/2021 04/2 3/2 Discontinued mg (50 mg) by mouth 022 tabletIndications: every 6 (six) Squamous cell hours as needed carcinoma of tongue for moderate pain. amoxicillin-clavulan Take 1 tablet 24 tablet 1 03/22/202110/20 Discontinued (Stop ate (AUGMENTIN) 875 (875 mg) by 022 Taking at mg-125 mg per mouth twice Disc harge) tabletIndications: daily. Primary squamous cell carcinoma of palatine tonsil lidocaine Swish and 200 mL 3 05/10/2021 Discontin ued (lidocaine) 20 mg/mL swallow 10 mL 021 (2%) viscous every 4 (four) solutionIndications: hours as needed Squamous cell (oral carcinoma of tongue mucositis). amoxicillin-clavulan Take 1 tablet 14 tablet 0 11/06/202110/20 ate (Augmentin) 875 (875 mg) by 022 mg-125 mg per mouth twice tabletIndications: daily for 7 Squamous cell days. 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 Not stageable. If not recurre nt would be N1 Pre op cardiovascular examination 09/09/2018 Overview: Follows with Dr Alejandro # [phone]. Last seen while hospitalized for urosepsis and 1-2 weeks after discharge. 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 Personal history of stroke Hypertension H/O: hysterectomy Encounters Date Type Specialty Care Team Description 04/11/2022 Orders Only Radiation Oncology Tara Brennan PA 04/10/2022 Orders Only Radiation Oncology Tara Brennan PA carcinoma of to ngue (Primary Dx) 02/12/2022 Orders Only Dental Oncology Dedra Matos katharine l Miya, DDS carcinoma of to ngue (Primary Dx) 01/01/2022 Orders Only Radiation Oncology Lorna Davey Squam ous cell PA carcinoma of to ngue (Primary Dx) 12/31/2021 Hospital Encounter Radiation Oncology Opal Ly MD 12/31/2021 Documentation Radiation Oncology Faraz Luna MD 12/31/2021 Documentation Radiation Oncology Jeff Stapleton MD 12/31/2021 Travel 12/28/2021 Hospital Encounter Radiation Oncology Faraz Luna MD Phan, Jack, MD 12/28/2021 Hospital Encounter Radiation Oncology Opal Ly MD 12/28/2021 Documentation Radiation Oncology Bayron Burton MD 12/28/2021 Travel 12/26/2021 Hospital Encounter Radiation Oncology Opal Ly MD 12/26/2021 Documentation Radiation Oncology Bayron Burton MD 12/26/2021 Travel 12/24/2021 Hospital Encounter Radiation Oncology Opal Ly MD 12/24/2021 Documentation Radiation Oncology Ameena Longoria MD 12/24/2021 Travel 12/21/2021 Hospital Encounter Radiation Oncology Opal Ly MD 12/21/2021 Documentation Radiation Oncology Bayron Burton MD 12/21/2021 Travel 12/13/2021 Documentation Radiation Oncology Faraz Luna MD 12/10/2021 Hospital Encounter Radiation Oncology Opal Ly MD 12/07/2021 Hospital Encounter Proton Therapy Lorna Davey, Squ amous cell PA carcinoma of tongue Faraz Luna MD 12/07/2021 Travel 12/06/2021 Ancillary Procedure Radiology PetarLorna rios, Squa mous cell PA carcinoma of to ngue 12/06/2021 Hospital Encounter Radiation Oncology Lorna Davey, Squamous cell PA carcinoma of tongue Faraz Luna MD 12/06/2021 Documentation Radiation Oncology Faraz Luna MD 12/06/2021 Documentation Radiation Oncology Faraz Luna MD 12/06/2021 Travel 12/05/2021 Clinical Support Covid Lorna Davey, Suspect ed COVID-19 (Primary Dx); PA Squamous cell carcinoma of tongue Ursula Da Silva RN 12/05/2021 Travel 12/03/2021 Orders Only Radiation Oncology Meme Watts, RN 11/30/2021 Orders Only Radiology David Amezcua PA 11/30/2021 Orders Only Radiation Oncology Lorna Davey Squam oumichael cell PA carcinoma of to ngue (Primary Dx) 11/30/2021 Orders Only Radiation Oncology Geo Mcknight RN 11/30/2021 Orders Only Radiation Oncology Chikis Stanley RN 11/26/2021 Hospital Encounter Head and Neck Opal Ly [place] stasis to head Surgery MD Lexii and [...] Gabby Flores MA 11/06/2021 Hospital Encounter Lab Prakash Newell APN Preope rative laboratory examination 11/06/2021 POEM Appointments [...] MD 10/24/2021 Ancillary Procedure Radiology Opal Ly malignant neoplasm of gum; MD Lexii Personal [...] Hospital Encounter Head and Neck Opal Ly malignant neoplasm of gum (Primary Dx); Surgery [...] Oncology Sherice Lopez Patient was seen in L RN the dental clin ic by Dr. Oscar merchant 08/10/2021 Travel 08/09/2021 Hospital Encounter Radiation Oncology Faraz Luna MD S quamous cell carcinoma of to ngue 08/09/2021 Clinical Support Opal Pineda Suspect ed NANCY Shultz MD (Primary Dx) Saba Quezada MA 08/09/2021 Hospital Encounter Radiology Lorna Davey Squam ous cell PA carcinoma of to ngue 08/09/2021 Hospital Encounter Lab Lorna Davey, Squam ous cell PA carcinoma of to ngue 08/09/2021 Travel 07/23/2021 Orders Only Head and Neck Laurita, Personal histo ry of Surgery MELANIE Calderon melanoma [...] 07/17/2021 Travel 07/16/2021 Clinical Support Opal Pineda ed NANCY Shultz MD (Primary Dx) Melita Perkins RN 07/16/2021 Travel 07/11/2021 Orders Only Dental Oncology Hofstede, Primary freeman gnant neoplasm of gum (Primary Dx); Miya, DDS Primary squamou s cell carcinoma of [...] Thacker MD 06/08/2021 Orders Only Radiation Oncology Lorna Davey Squam ous cell PA carcinoma of to [...] Therapy Opal Ly MD 06/01/[address] 06/01/2021 Travel 05/31/2021 Hospital Encounter Proton Therapy [...] Encounter Proton Therapy 05/03/2021 Nutrition Nutrition Sofi, No Show Mayela, RD 05/03/2021 Travel 05/03/2021 Telephone Radiation Oncology Chikis Stanley RN after 05/03/2021 Immunizations Name Administration Dates Next Due Pfizer SARS-CoV-2 Vaccination (Purple Cap) 02/25/2021, 01/18 Surgical History Surgery Date Site/Laterality Comments HYSTERECTOMY 07/21/1969 - 07/20/1970 RI PART REMOVAL 09/24/2017 Mouth/Right Procedure: GLOSS ECTOMY - TONGUE,<1/2 LESS THAN 1/2 OF TONGUE; Surgeon: Opal Ly MD; Location: MAIN OR; Service : HN - HEAD & NECK SURG SOY RI TONGUE AND MOUTH SURG 09/24/2017 Right Procedu re: LASER ABLATION UNLISTED OF ORAL CAVITY; Surgeon: Opal zamarripa MD; Location: MAIN O R; Service: HN - HE AD & NECK SURGERY RI REMOVAL NODES, 09/24/2017 Right Procedure: LEV EL II-III NECK,CERV MOD RAD NECK DISSECTIO N; Surgeon: Opal zamarripa MD; Location: MAIN O R; Service: HN - HE AD & NECK SURGERY RI NEUROENDOSCOP,W/EXCISE 09/24/2017 N/A Proced ure: 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 RI SUB GRFT 09/11/2018 Right Procedure: APPLI CATION OF F/S/N/H/F/G/M/D /<100SCM SKIN RANDHAWA BSTITUTE GRAFT TO /<1ST 25 SCM MOUTH - Integra 2x2; Surgeon: Opal Ly MD; Location: MAIN OR; Service : HN - HEAD & NECK SURG SOY Medical devices from this surgery are in t he Medical Devices section. RI DENTAL SURGERY 09/11/2018 Mouth/Right Procedure: DEN ALEXUS PROCEDURE EXTRACTION(S); S urgeon: Opal zamarripa MD; Location: MAIN O R; Service: HN - HE AD & NECK SURGERY Medical devices from this surgery are in t he Medical Devices section. RI TONGUE AND MOUTH SURG 02/16/2021 Mouth/Bilateral Procedu re: LASER ABLATION UNLISTED OF ORAL CAVITY; Surgeon: Opal zamarripa MD; Location: MAIN O R; Service: HN - HE AD & NECK SURGERY Medical devices from this surgery are in t he Medical Devices section. RI SUB GRFT 02/16/2021 Mouth/Right Procedure: APPLI CATION OF F/S/N/H/F/G/M/D /<100SCM SKIN RANDHAWA BSTITUTE GRAFT TO /<1ST 25 SCM MOUTH; Surgeon: Opal Ly MD; Location: MAIN OR; Service : HN - HEAD & NECK SURG SOY Medical devices from this surgery are in t he Medical Devices section. RI EXCIS MOUTH 02/16/2021 Mouth/Right Procedure: WLE o f alveolar MUCOSA/SUB,NO REPAIR ridge; Surg miguel: Opal Ly MD; Location: MAIN OR; Service : HN - HEAD & NECK SURG SOY Medical devices from this surgery are in t he Medical Devices section. RI REMV UPPER 02/16/2021 Mouth/Right Procedure: MAXIL LECTOMY, JAW-MAXILLECTOMY WITHOUT ORBITAL EXTENERATION; Randhawa rgeon: Lexii Ventura; Location: MAIN O R; Service: HN - HE AD & NECK SURGERY Medical devices from this surgery are in t he Medical Devices section. RI PREP FACE/ORAL PROST 02/16/2021 Mouth/Bilateral Procedur e: TAKING ORAL SPLINT IMPRESSION FOR O RAL SURGICAL SPLINT AND CUSTOM PREPARATION OF S PLINT; Surgeon: Avtar Morrissey DMD; [facility] Service: ORAL ON COLOGY & MAXILLOFACIAL PROSTHODONTICS Medical devices from this surgery are in t he Medical Devices section. 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 Not on file Not on file Not on file Obstetrics History Last Filed Vital Signs Vital [...] Treatment Date Type Specialty Care Team Description 06/10/2022 Appointment Lab Lorna Davey PA [address], [place] [address] (Wo rk) 06/10/2022 Ancillary Procedure Radiology Milady Davey PA [address], [place] [address] (Wo rk) 06/10/2022 Appointment Head and Neck Surgery Opal Ly MD [address], [place] [address] (Wo rk) Health Maintenance Due Date Last Done Comments COVID-19 Vaccination (3 - Pfizer risk 03/25/2021 02/25/2021 , 02/02/2021 series) Medical Devices Implanted Type Area Roof Fitter Device Shelf Model / Identifier Expiration Serial / Date Lot Bilayer Wound Dressing 2?X2? - [id number] Skin/Tis Right: Soft INTE GRA 05/20/2021 BMW-2020 / Implanted: Qty: 1 on 09/11/2018 by Opal Ly MD at [facility] marisela Palate [employer] / SURG [id number] Bilayer Wound Dressing 2in X 2 In - [id number] Skin/Tis Right: INTEGRA 05/20/2022 BMW-2020 / Implanted: Qty: 1 on 02/16/2021 by Opal Ly MD at [facility] marisela Maxilla [employer] / SURG [id number] Procedures Procedure Name Priority Date/Time Associated Comments Diagnosis MRI HEAD/NECK Routine 12/07/2021 11:14 Squamous cell Results f or this SIMULATION W WO AM CDT carcinoma of procedure ar e in CONTRAST (RO) tongue the results section. POC CREATININE Routine 12/07/2021 9:49 AM Results for this CDT procedure are i n the results section. CT SOFT TISSUE NECK W Routine 12/06/2021 12:39 Squamous cell R esults for this CONTRAST PM CDT carcinoma of procedure are i n tongue the results section. COVID-19 Routine 12/05/2021 1:43 PM Suspected COVID-19 Res ults for this (SARS-COV-2) PCR CDT procedure a re in ASYMPTOMATIC the results section. PATHOLOGY SURGICAL Routine 11/09/2021 3:41 PM Metastasis to he ad Results for this INTERPRETATION CDT and neck lymph procedure a re in node the results Squamous cell section. carcinoma of tongue LEVEL V NECK DISSECTION 11/09/2021 2:14 PM Metastasis to head CDT and neck lymph node Squamous cell carcinoma of tongue Special Needs Cd@1100 CLOT EXPIRATION DATE STAT 11/09/2021 1:50 Resu lts for this PM CDT procedure are i n the results section. TMP INTERPRETATION STAT 11/09/2021 1:50 Result s for this ANTIBODY SCREEN PM CDT procedure ar e in NEGATIVE the results section. ANTIBODY SCREEN STAT 11/09/2021 1:50 Results f or this PM CDT procedure are i n the results section. ABORH STAT 11/09/2021 1:50 Results for this PM CDT procedure are i n the results section. TYPE AND SCREEN STAT 11/09/2021 1:50 PM CDT POC GLUCOSE SCREEN Routine 11/09/2021 11:01 Resul ts for this AM CDT procedure are i n the results section. MANUAL DIFFERENTIAL Routine 11/06/2021 3:13 Preoperative Resul ts for this PM CDT laboratory examination proce dure are in the results section. Results CBC Routine 11/06/2021 3:13 Preoperative Results for this PM CDT laboratory examination proce dure are in the results section. .GLOMERULAR FILTRATION Routine 11/06/2021 3:13 Preoperative Re sults for this RATE PM CDT laboratory examination proce dure are in the results section. SERUM CREATININE Routine 11/06/2021 3:13 Preoperative Results for this PM CDT laboratory examination proce dure are in the results section. HEMOGLOBIN A1C Routine 11/06/2021 3:13 Preoperative Results fo r this PM CDT laboratory examination proce dure are in the results section. GLUCOSE, RANDOM Routine 11/06/2021 3:13 Preoperative Results f or this PM CDT laboratory examination proce dure are in the results section. ELECTROLYTE PANEL Routine 11/06/2021 3:13 Preoperative Results for this PM CDT laboratory examination proce dure are in the results section. SERUM CREATININE Routine 11/06/2021 3:13 Preoperative PM CDT laboratory examination COMPLETE BLOOD COUNT Routine 11/06/2021 3:13 Preoperative W/ DIFFERENTIAL PM CDT laboratory examination BLOOD UREA NITROGEN Routine 11/06/2021 3:13 Preoperative Resul ts for this PM CDT laboratory examination proce [...] lymphadenopathy CYTOLOGY IMAGE-GUIDED STAT 10/24/2021 9:16 Primary malignan t Results for this FNA INTERPRETATION AM CDT neoplasm of g um procedure are in Personal history of the resu lts irradiation section. Cervical lymphadenopathy CT SOFT TISSUE NECK W Routine 10/17/2021 2:48 Primary malignan t Results for this CONTRAST PM CDT neoplasm of gum procedure are in Personal history of the resu lts irradiation section. POC CREATININE Routine 10/17/2021 1:33 Results fo r this PM CDT procedure are i n the results section. .GLOMERULAR FILTRATION Routine 10/17/2021 1:08 Primary maligna nt Results for this RATE PM CDT neoplasm of gum procedure are in Personal history of the resu lts irradiation section. SERUM CREATININE Routine 10/17/2021 1:08 Primary malignant Res ults for this PM CDT neoplasm of gum procedure are in Personal history of the resu lts irradiation section. THYROID STIMULATING Routine 10/17/2021 1:08 Primary malignant Results for this HORMONE PM CDT neoplasm of gum procedure are in Personal history of the resu lts irradiation section. FREE THYROXINE Routine 10/17/2021 1:08 Primary malignant Resul ts for this PM CDT neoplasm of gum [...] section. 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 after 05/03/2021 Results MRI Head/Neck Simulation with and without Contrast (12/07/2021 11:14 AM CDT) Specimen (Source) Anatomical Location Collection Method / Collectio n Time Received Time / Laterality Volume Narrative Systemgenerated, Documentation - 022 11:14 AM CDT This procedure requires no interpretatio n from the radiologist. Lorna NAVARRO IMNoam RO MRI SIM ORDERABLES POC Creatinine (12/07/2021 9:49 AM CDT)Only the most recent of3 resultswithin the time period is included. P athologist Signature POC Crea 0.9 0.6 - [...] Center POC [facility] Comment: Proton Therapy Center [facility], [address], [place], [place] [address]; Point of Care Seed Corn Manager Production: Latosha Hurley MD Specimen Anatomical Collection Method Collection Time Receive d Time (Source) Location / / Volume Laterality Blood 12/07/2021 9:49 AM 2 9:49 CDT AM CDT Lorna NAVARRO POCT ORDERABLES - DEVICE Performing Organization Address City/State/ZIP Code Phon e Number POC [facility] CT Soft Tissue Neck with Contrast (12/06/2021 12:39 PM CDT)Only the most recent of3 resultswithin the time period is included. Anatomical [...] are clear. The osseous structures demonstrate no randhawa spicious lytic or blastic lesion. Other pertinent findings: None. Procedure Note [place], MD Allyson - 12/08/2021 FULL RESULT: Examination: [...] are clear. The osseous structures demonstrate no randhawa spicious lytic or blastic lesion. Other pertinent findings: None. IMPRESSION: Surgical change of the right level 5A ly mphadenectomy site. No additional adenopathy. Lorna NAVARRO IMG CT ORDERABLES MD COVID-19 (PAUL-CoV-2) PCR Asymptomatic (12/05/2021 1:43 PM CDT)Only the most recent of3 resultswithin the time period is included. Component Value Ref Range Test Analysis Performed Pathologis t Method Time At Signature COVID19 SARS Pre-Radiation [place] Indication Therapy [facility] COVID19 SARS Not Detected Not [place] Result Detected [facility] COVID19 SARS SARS-CoV-2 NOT Detected. [place] Interpretation AMIGO Reference Range: Not Detected RUST Methodology: The Reinoso Real Time SARS-CoV-2 assay is a qualitative real-time reverse rip and groove machine operator polymerase chain reaction (soundscriber mechanic-PCR) test to detect RNA from SARS-CoV-2 in nasal, nasopharyngeal and oropharyngeal swabs from patients with signs and symptoms of infection who ar e suspected of COVID-19 by their health care provider. The Reinoso RealTime SARS-CoV-2 performed on the [id number] System is a dual target assay with [...] high- complexity Molecular Diagnostics Laboratory (MDL) at [facility] under the Food and Drug Administration (FDA) s Emergency Use Authorization. Factsheet for patients: https://www.[facility].org/AbbottFac tSheetPatients Factsheet for healthcare pro viders: https://www.[facility].org/AbbottFactSheetHCP Test performed by: [facility] Molecular Diagnostic Lab [address] [place] [address] Specimen (Source) Anatomical Collection Method Collection Time Re ceived Time Location / / Volume Laterality Nasopharyngeal Swab 12/05/2021 1:43 12/05 PM CDT 3:07 PM CDT Faraz Luna MD MICROBIOLOGY - GENERAL ORDER GARY Performing Organization Address City/State/ZIP Code Phon e Number [facility] Unless otherwise noted, [place] [address] CENTER all lab tests performed by: Division of Pathology and Laboratory Medicine [address] Pathology Surgical Interpretation (11/09/2021 3:41 PM CDT) Component Value Ref Test Analysis Performed Pathologis t Range Method Time At Signature Submitted 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 CDT Jess Two lymph nodes, negative for tumor MD Gregorio on See comment at 10:37 PM W/FAS2 Comment The main mass 11/14/2021 [facility] likely represents 10:37 PM a completely CDT replaced lymph node with gross extranodal extension including to surround nerve bundles. Gross A: 11/14/2021 [facility] Description Neck, right, right neck diss ection level 5a---dn85--flhejkvhy : Consists of an unoriented portion of yellow-white fibrofatty tissue and small amount of muscle (4.5 x 3.0 x 1.5 cm). 10:37 PM The specimen is sectioned t o reveal 5 possible pale felder-pink lymph nodes (ranging from 0 0.1 cm in greatest dimension up to 2.0 x 1.8 x 1.2 cm). The largest lymph node is sectioned to reveal a firm whi C DT te-felder cut surface with a ce ntral cavity containing a small amount of red serous like fluid. The tumor within the lymph node appears to be infiltrating into the surrounding adipose tissue. SECTION CODE: A1, 1 possibl e lymph node; A2-4, 1 possible lymph node bisected in each cassette; A5-6, outside sales representative insurance sections from largest grossly positive lymph node. ES Disclaimer "Some tests 11/14/2021 [facility] reported here may 10:37 PM have been CDT developed and performance characteristics determined by [facility] Pathology and Laboratory Medicine. These tests have not been specifically cleared or approved by the U.S. Food and Drug Administration. If applicable, controls were reviewed and showed appropriate reactivity." Specimen Anatomical Collection Method Collection Time Receive d Time (Source) Location / / Volume Laterality Tissue (Neck, 11/09/2021 3:41 PM 11/10/19 3:51 Right) CDT PM CDT Opal Ly MD LAB PATHOLOGY ORDERABLES Performing Organization Address City/[facility] Phon e Number [facility] [place] [address] [id number] [place] [place] Expiration Date (11/09/2021 1:50 PM CDT) [facility] T & S 11/12/2021 [facility] Specimen Anatomical Collection Method Collection Time Receive d Time (Source) Location / / Volume Laterality Blood 11/09/2021 1:50 PM 2 2:03 CDT PM CDT Tremaine Felder MD BLOOD BANK TEST ORDERABLES Performing Organization Address City/[facility] [facility] Phon e Number [facility] CANCER Unless otherwise noted, [place] [address] CENTER all lab tests performed by: Division of Pathology and Laboratory Medicine [address] [place] TMP Interpretation Antibody Screen Negative (11/09/2021 1:50 PM CDT) [facility] TMP Auto Neg At the [facility] patient plasma shows no evidence of RBC alloantibodi es. Comment: STAN MARCUS MD, PhD - [id number] Dictated by: STAN MARCUS MD, Ph D - [id number] Dictated Date/Time: 11.09.2021 16:59 PM CDT Transcribed Date/Time: 11.09.2021 16:59 PM CDT Electronically Signed By: STAN MARCUS MD, PhD - [id number] on 11.09.2021 16:59 PM Specimen Anatomical Collection Method Collection Time Receive d Time (Source) Location / / Volume Laterality Blood 11/09/2021 1:50 PM 2 2:03 CDT PM CDT Tremaine Felder MD BLOOD BANK TEST ORDERABLES Performing Organization Address City/State/[facility] Code Phon e Number [facility] CANCER Unless otherwise noted, [address] all lab tests performed by: Division of Pathology and Laboratory Medicine [address] [place] ABORh (11/09/2021 1:50 PM CDT) P athologist Signature ABORh. O POS [facility] Specimen Anatomical Collection Method Collection Time Receive d Time (Source) Location / / Volume Laterality Blood 11/09/2021 1:50 PM 2 2:03 CDT PM CDT Tremaine Felder MD BLOOD BANK TEST ORDERABLES Performing Organization Address City/[facility] Code Phon e Number [facility] CANCER Unless otherwise noted, [address] all lab tests performed by: Division of Pathology and Laboratory Medicine [address] [place] Antibody Screen (11/09/2021 1:50 PM CDT) P athologist Signature ABSC. Negative ABSC [facility] Specimen Anatomical Collection Method Collection Time Receive d Time (Source) Location / / Volume Laterality Blood 11/09/2021 1:50 PM 2 2:03 CDT PM CDT Tremaine Felder MD BLOOD BANK TEST ORDERABLES Performing Organization Address City/State/ZIP Code Phon e Number [facility] CAN[facility]ER Unless otherwise noted, [address] all lab tests performed by: Division of Pathology and Laboratory Medicine [address] [place] [address] (ABNORMAL) POC Glucose Screen (11/09/2021 11:01 AM CDT) athologist Signature POC Glucose 104 (H) 70 - 99 POC [facility] mg/dL Comment: Notified Capillary blood samples, e.g. obtained b [...] Sample Type Capillary POC [facility] Performing Lab [facility] POC TELCO R Comment: [facility], [address] [place] [address], [place] [address]; Lab Direct or: Rebeka Cao MD Specimen Anatomical Collection Method Collection Time Receive d Time (Source) Location / / Volume Laterality Blood 11/09/2021 11:01 11/09/2021 AM CDT 11:01 AM CDT Opal Ly MD POCT ORDERABLES - DEVICE Performing Organization Address City/State/ZIP Code Phon e Number POC [facility] Glucose, Random (11/06/2021 3:13 PM CDT) athologist Signature Glucose Random 105 70 - 199 [facility] mg/dL CANCER CENTER Comment: Effective 02/14/16, the glucose reference intervals have been updated based on [place] [employer] guidelines (Standards of Medical Care [...] / / Volume Laterality Blood 11/06/2021 3:13 PM 3:42 CDT PM CDT Prakash Newell APN LAB BLOOD ORDERABLES Performing Organization Address City/[facility] Phon e Number [facility] CAN[facility]ER Unless otherwise noted, [address] all lab tests performed by: Division of Pathology and Laboratory Medicine [address] [place] [address] (ABNORMAL) .Serum Creatinine (11/06/2021 3:13 PM CDT)Only the most recent of3 resultswithin the time period is included. athologist [facility] Creatinine 0.97 (H) 0.51 - 0.95 [facility] mg/dL [place] Specimen Anatomical Collection Method Collection Time Receive d Time (Source) Location / / Volume Laterality Blood 11/06/2021 3:13 PM 2 3:42 CDT PM CDT Prakash Reece OCHOA LAB BLOOD ORDERABLES Performing Organization Address [facility] Phon e Number [facility] CAN[facility]ER Unless otherwise noted, [address] all lab tests performed by: Division of Pathology and Laboratory Medicine [address] [place] [address] .CBC (11/06/2021 3:13 PM CDT) athologist [facility] WBC 8.3 4.0 - 11.0 [facility] RBC 4.57 4.00 - [facility] 5.50 M[facility] Hgb 13.4 12.0 - [facility] 16.0 gm/dL [place] Hct 41.1 37.0 - [facility] 47.0 % [place] MCV 90 82 - 98 [facility] MCH 29.3 27.0 - [facility] 31.0 pg [place] MCHC 32.6 31.0 - [facility] 36.0 gm/dL [place] RDW-SD 44.6 35.1 - [facility] 46.3 [facility] RDW-CV 13.6 12.0 - [facility] 15.5 % [place] Platelet count 282 140 - 440 [facility] MPV 9.8 4.0 - 10.4 [facility] INRBC 0.0 <=0.0 % [facility] Comment: The INRBC (instrument NRBC) value reflec [...] / / Volume Laterality Blood 11/06/2021 3:13 PM 2 3:25 CDT PM CDT Prakash Newell DON LAB BLOOD ORDERABLES Performing Organization Address City/State/ZIP Code Phon e Number [facility] CANCER Unless otherwise noted, [place] [address] [place] all lab tests performed by: Division of Pathology and Laboratory Medicine [address] [place] (ABNORMAL) Glomerular Filtration Rate (11/06/2021 3:13 PM CDT)Only the most recent of3 resultswithin the time period is included. P athologist Signature eGFR-AA 65 >=60 [place] MD KELLEY mL/min/1.73 CAN[facility]ER CENTER sq. m Comment: Normal [...] eGFR-IMELDA 56 (L) >=60 mL/min/1.73 sq. m [place] MD Kellie [facility] Comment: Normal eGFR: >= [...] / / Volume Laterality Blood 11/06/2021 3:13 PM 2 3:42 CDT PM CDT Prakash Newell APN LAB BLOOD ORDERABLES Performing Organization Address City/State/ZIP Code Phon e Number [facility] CANCER Unless otherwise noted, [place] [address] [place] all lab tests performed by: Division of Pathology and Laboratory Medicine [address] Differential (11/06/2021 3:13 PM CDT) athologist Signature Neutrophil % 60.6 42.0 - 66.0 [facility] Lymphocyte % 30.6 24.0 - 44.0 [facility] Monocyte % 6.3 2.0 - 7.0 % [facility] Eosinophil % 1.8 1.0 - 4.0 % [facility] Basophil % 0.5 0.0 - 1.0 % [facility] IGRE % 0.2 0.0 - 0.4 % [facility] Comment: IGRE % count includes Metamyelo cytes, Myelocytes, and Promyelocytes. Neutrophil Abs 5.03 1.70 - 7.30 K/uL [facility] Lymphocyte Abs 2.54 1.00 - 4.80 K/uL [facility] Monocyte Abs 0.52 0.08 - 0.70 K/uL [facility] Eosinophil Abs 0.15 0.04 - 0.40 K/uL [facility] Basophil Abs 0.04 0.00 - 0.10 K/uL [place] [facility] IG Abs 0.02 0.00 - 0.04 K/uL [place] MD SAHIL Morgan [place] Specimen Anatomical Collection Method Collection Time Receive d Time (Source) Location / / Volume Laterality Blood 11/06/2021 3:13 PM 2 3:25 CDT PM CDT Prakash Newell APN LAB BLOOD ORDERABLES Performing Organization Address City/[facility] Phon e Number [facility] CANCER Unless otherwise noted, [address] all lab tests performed by: Division of Pathology and Laboratory Medicine [address] [place] [address] BUN (11/06/2021 3:13 PM CDT)Only the most recent of3 resultswithin the time period is included. athologist [facility] BUN 21 6 - 23 [facility] mg/dL [facility] CENTER Specimen Anatomical Collection Method Collection Time Receive d Time (Source) Location / / Volume Laterality Blood 11/06/2021 3:13 PM 2 3:42 CDT PM CDT Prakash CALVERTN LAB BLOOD ORDERABLES Performing Organization Address [facility] Phon e Number [facility] CANCER Unless otherwise noted, [address] all lab tests performed by: Division of Pathology and Laboratory Medicine [address] [place] [address] Hemoglobin A1c (11/06/2021 3:13 PM CDT) athologist [facility] A1C 5.6 4.3 - 5.6 % [facility] Comment: HbA1c values >=6.5% are diagnostic of di abetes mellitus. Diagnosis should be confirmed by repeat testing. Therapeutic Action suggested: >8.0% HbA1 c; Goal of therapy: <7.0% HbA1c Specimen Anatomical Collection Method Collection Time Receive d Time (Source) Location / / Volume Laterality Blood 11/06/2021 3:13 PM 2 3:40 CDT PM CDT Prakash CALVERTN LAB BLOOD ORDERABLES Performing Organization Address City/[facility] Phon e Number [facility] CANCER Unless otherwise noted, [address] all lab tests performed by: Division of Pathology and Laboratory Medicine [address] [place] [address] Electrolyte Panel (11/06/2021 3:13 PM CDT) athologist Signature Sodium Lvl 138 136 - 145 [facility] mEq/L [place] Potassium Lvl 4.2 3.5 - 5.1 [facility] mEq/L [facility] Chloride 101 98 - 107 [facility] mEq/L [facility] CO2 25 22 - 29 [facility] mEq/L [facility] CENTER Anion Gap 12 4 - 14 [facility] mEq/L [facility] CENTER Specimen Anatomical Collection Method Collection Time Receive d Time (Source) Location / / Volume Laterality Blood 11/06/2021 3:13 PM 2 3:42 CDT PM CDT Prakash Newell VIOLIN RESTORER LAB BLOOD ORDERABLES Performing Organization Address City/State/ZIP Code Phon e Number [facility] CANCER Unless otherwise noted, [place] [address] [place] all lab tests performed by: Division of Pathology and Laboratory Medicine [facility] [place] Fine Needle Aspiration (10/24/2021 11:10 AM [...] local anesthesia. Fine-needle aspiration of the right randhawa perior posterior neck node was performed using [...] local anesthesia. Fine-needle aspiration of the right supe rior posterior neck node was performed using a [...] local anesthesia. Fine-needle aspiration of the right randhawa perior posterior neck node was performed using [...] local anesthesia. Fine-needle aspiration of the right supe rior posterior neck node was performed using a [...] Method Time At Signature Gross A: 10/26/2021 [facility] Description Specimens procured: 11:17 AM 2 Diff Quik; 8 Pap Stain Slides CDT 20 ml, slightly cloudy slightly bloody fluid in RPMI 1 Cell Block Date/Time Placed in Formalin: 10/24/21 1:06 PM Size: 1.6 x 1.1 x 0.9 cm Immediate assessment for specimen adequacy was made x2 by Dr Libertad Brownlee. Immediate Adequate 10/26/2021 [facility] Assessment cellularity, 11:17 AM favor malignant CDT Major MALIGNANT (A) 10/26/2021 [facility] Zeina ctronically Classification 11:17 AM sofía d by Kenn Brownlee MD on 10/26/2021 a t 11:17 AM Diagnosis A. Lymph node, right posterior superior neck, fine needle aspiration: 10/26/2021 [facility] Electronically 11:17 AM signed by Kenn METASTATIC SQUAMOUS CELL CARCINOMA ISABEL Brownlee MD on 10/26/2021 a t 11:17 AM Comment An immunostain 10/26/2021 [facility] with an 11:17 AM appropriate CDT control, performed on the cell block preparation, show tumor cells to be positive for P40. This is supportive of the above diagnosis. Retained/Biomark SR: 10 S, 1 IP, 2 CB 10/26/[address] [facility] er Testing 11:17 AM Biomarker Testing: CDT MDL Cell Block: <50 MDL Pap: No MDL DQ: No FISH DQ: No Informational Some tests 10/26/2021 [facility] Points reported here may 11:17 AM have been CDT developed and performance characteristics determined by [place] [facility]. These tests have not been specifically cleared or approved by the U.S. Food and Drug Administration. Specimen Anatomical Collection Method Collection Time Receive d Time (Source) Location / / Volume Laterality Fine Needle Asp 10/24/2021 9:16 AM 2021 (Neck, Right) CDT 10:10 AM CDT Opal Ly MD LAB CYTOLOGY ORDERABLES Performing Organization Address City/State/ZIP Code Phon e Number [facility] [address] TSH (10/17/2021 1:08 PM CDT)Only the most recent of2 resultswithin the time period is included. athologist Signature TSH 1.54 0.27 - 4.20 [facility] mcunit/mL [place] Specimen Anatomical Collection Method Collection Time Receive d Time (Source) Location / / Volume Laterality Blood 10/17/2021 1:08 PM 2 1:59 CDT PM CDT Ana Khniko NAVARRO LAB BLOOD ORDERABLES Performing Organization Address City/[facility]/ZIP Code Phon e Number [facility] CANCER Unless otherwise noted, [address] all lab tests performed by: Division of Pathology and Laboratory Medicine [address] [place] [address] Free T4 (10/17/2021 1:08 PM CDT)Only the most recent of2 resultswithin the time period is included. athologist [facility] T4 Free 1.70 0.93 - 1.70 [facility] ng/dL [place] Specimen Anatomical Collection Method Collection Time Receive d Time (Source) Location / / Volume Laterality Blood 10/17/2021 1:08 PM 2 1:59 CDT PM CDT Ana NAVARRO LAB BLOOD ORDERABLES Performing Organization Address City/State/ZIP Code Phon e Number [facility] Unless otherwise noted, [address] all lab tests performed by: Division of Pathology and Laboratory Medicine [address] [place] [address] COVID-19 (SARS-CoV-2) PCR-Asymptomatic (08/09/2021 8:49 AM COMPONENT ASSEMBLER SUPERVISOR) [facility] gist Method Time Signature COVID19 (SARS Not Detected Not Detected [facility] CoV-2) [facility] Comment: This test is a qualitative reverse-trans criptase polymerase chain reaction (RT- PCR) developed for the [employer] system and intended for qualitative detection of SARS CoV-2 RNA in nasopharyngeal a nd oropharyngeal swab specimens collecte d from any individuals, including those suspected o f COVID-19 by their healthcare provider, and those without symptoms or other reasons to suspect COVID-19. A fact sheet for patients provided by the varnish cooker ( [employer]) can be rev iewed at: https://www.fda.gov/media/384134/downloa d. A fact sheet for Health Care providers is provided by the varnish cooker ([employer]) and can be reviewed at: https://www.fda.gov/media/009671/download Results must be interpreted within the c [...] were verified by the Microbiology Laboratory at [facility], CLIA Accreditation #: [id number] and CAP Accreditation #: [id number]. COVID19 SARS Source SALES AGENT [employer]TY INSURANCE Swab [place] MD PATINO [facility] COVID19 SARS Indication Pre-Out of OR Procedure [facility] Specimen (Source) Anatomical Collection Method Collection Time Re ceived Time Location / / Volume Laterality Nasopharyngeal Swab 08/09/2021 8:49 08/09 AM COMPONENT ASSEMBLER SUPERVISOR 11:16 AM COMPONENT ASSEMBLER SUPERVISOR Miya Matos DDS MICROBIOLOGY - GENERAL ORDER GARY Performing Organization Address City/State/ZIP Code Phon e Number [facility] CANCER Unless otherwise noted, [address] all lab tests performed by: Division of Pathology and Laboratory Medicine [address] [place] [address] after 05/03/2021 Insurance Payer Benefit Plan / Subscriber ID Effective Dates Phone Addre ss Type Group AETNA MEDICARE AETNA MEDICARE [id number] 2021-Presen [address] [place] [address] Connie Arango Personal/Family Self 1940 [address] (Home) [place] [address] [phone] [place] [address] (Work) [id number] Advance Directives Code Status Date Activated Date Inactivated Comments Full Code 11/09/2021 8:02 PM 11/10/2021 2:46 PM Full Code 02/16/2021 7:41 PM 02/17/2021 12:12 PM Full Code 09/11/2018 9:11 AM 09/12/2018 4:09 PM Full Code 09/24/2017 1:22 PM 09/25/2017 4:14 PM Care Teams Airport Traffic Controller Relationship Specialty Start Date End Date Opal Ly MD PCP - General 09/20/[address] [place] [id number] Neva Bloom, LINDY Nurse Practitioner 09/27/15 Faraz Luna MD Physician Radiation Oncology 04/05/[address] [place] [id number]
--- OUTSIDE RECORDS SUMMARY | 2022-05-03 07:34 | XMS REPORT | Continuity of Care Document ---
:1940 Author Organization [facility] t Address [address] [place] [place] [address] Care Team Providers Name Role Phone [phone] Primary Care Physician Unavailable SYSTEM, PROVIDER NOT IN Attending Clinician Unavailable Mika NAVARRO, Tara Julio Attending Clinician Carlo NICHOLS, Miya Attending Clinician Petar NAVARRO, Prince Shultz Attending Clinician Malachi BARRAZA, Luis Miguel Shultz Attending Clinician Faraz Burns MD Attending Clinician Daya BARRAZA, Jeff Attending Clinician Bayron Burton MD Attending Clinician Von BARRAZA, Ameena Ruiz Attending Clinician Avinash WILL, Ursula Wiley Attending Clinician Unavailable Meme Watts RN Attending Clinician David Leonrado Attending Clinician Roxanna WILL, Geo Wall Attending Clinician Unavailable Chikis Stanley RN Attending Clinician Unavailable LUIS MIGUEL LY Attending Clinician Unavailable Fabian BARRAZA, Willem Benavides Attending Clinician Keith Solitario MD Attending Clinician Unavailable Tremaine Quinn MD Attending Clinician Leidy Flanagan CRNA Attending Clinician [phone] Gabby Flores MA Attending Clinician Unavailable Prakash Humphries APN Attending Clinician PRAKASH HUMPHRIES Attending Clinician Unavailable Naresh Jewell Attending Clinician NARESH BRADFORD Attending Clinician Unavailable Phani WILL, Sophia Attending Clinician Unavailable MIYA MATOS Attending Clinician Unavailable Jessica WILL, Sherice Morrell Attending Clinician FARAZ BURNS Attending Clinician Unavailable PRINCE DAVEY Attending Clinician Unavailable Saba Quezada MA Attending Clinician Unavailable Peter Day Attending Clinician Mónica Alvarado DDS Attending Clinician [phone] MÓNICA ALVARADO Attending Clinician Unavailable Melita Perkins RN Attending Clinician Mary Thacker MD Attending Clinician [phone] Attending Clinician JUAN LUIS TYLER Attending Clinician Unavailable ADAMS CORTEZ Attending Clinician Unavailable KHLOE BENOIT Attending Clinician Unavailable REJI FORD Attending Clinician Unavailable LUIS MIGUEL LY Admitting Clinician Unavailable Payers Payer Name Policy Type Policy Number Effective Date Expiration Date S ource Problems Condition Condition Condition Status Onset Resolution Last Treating Co mments Source Name Details Category Date Date Treatment Clinician Date Prediabete Prediabete Disease Active U nivers s s 02-14 ity of 00:00: [place] 00 [facility] Primary Primary Disease Active Overview: Univ ers malignant malignant 02-06 Formattin i ty of neoplasm neoplasm 00:00: g of this Donis as of gum of gum note might be Anderso different n from the Cancer original. Center Added automatic ally from request for surgery [id number] Lesion of Lesion of Disease Active Overview: Univers tongue tongue 02-06 Formattin ity of 00:00: g of this [place] 00 note might be Anderso different n from the Cancer original. Center Added automatic ally from request for surgery [id number] Personal Personal Disease Active Unive rs history of history of 08-16 it y of irradiatio irradiatio [place] 00 [place] [facility] Secondary Secondary Disease Active 2018-07 Overview: Univers and and -15 Formattin ity of unspecifie unspecifie 00:00: g of this [place] d d 00 note malignant malignant might be An derso neoplasm neoplasm different n of lymph of lymph from the Canc er nodes of nodes of original. Lito ter head, face head, face Recurrent and neck and neck . Not stageable . If not recurrent would be N1 Pre op Pre op Disease Active Overview: Univer s cardiovasc cardiovasc 09-09 Formattin ity of ulkem ular 00:00: g of this [place] examinatio examinatio 00 note MD rich n might be Anderso different n from the Cancer original. Center Follows with Dr Alejandro # . Last seen while hospitali zed for urosepsis and 1-2 weeks after discharge . In scanned documents -[facility] 06/2016 RCA:ok, PDA: 60%, LM ok, CFX: [...] testing is needed. 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 Center Added automatic ally from request for surgery [id number] Personal Personal Disease Active 2015-07 Unive rs history of history of 1-14 it y of melanoma melanoma 00:00: [place] of skin of skin 00 MD [facility] Oral Oral Disease Active Univers lichen lichen 7-16 ity of planus planus 00:00: [place] 00 MD [facility] Lichen Lichen Disease Active Univers planus planus ity of [place] MD [facility] Leukoplaki Leukoplaki Disease Active U nivers a of oral a of oral ity of mucosa mucosa [place] MD [facility] Gastroesop Gastroesop Disease Active U nivers hageal hageal ity of reflux reflux [place] disease disease (aka GERD (aka GERD Marcell rso - - n Gastro-eso Gastro-eso Ca nyer phageal phagepr Center reflux reflux disease) disease) Hypothyroi Hypothyroi Disease Active U nivers dism dism ity of [facility] Gout Gout Disease Active Univers ity of [place] MD [facility] Atrial Atrial Disease Active Overview: Univer s fibrillati fibrillati Formattin ity of on on g of this [place] note might be Jose faulkner n from the Cancer original. Center H/o PAF during both episodes of urosepsis , resolved. Personal Personal Disease Active Unive rs history of history of it y of stroke stroke Shannon rich [facility] Hypertensi Hypertensi Disease Active U nivers on on ity of [place] MD Jose [facility] Gleason H/O: H/O: Disease Active Univers hysterecto hysterecto it y of my my [place] MD Jose rich [facility] Allergies, Adverse Reactions, Alerts Allergy Allergy Status Severity Reaction(s) Onset Inactive Treating Comm ents Source Name Type Date Date Clinician Amlodipi Drug Active Other (See 2014-07 Leg edema U nivers ne Intolera Comments) 0-12 ity o f nce 00:00: [place] 00 MD Jose rich [facility] Clonidin Drug Active GI 2014-07 Nausea, Univers e Intolera Intolerance 0-12 Chest ity of nce 00:00: tightness [place] 00 , fatigue MD Jose rich [facility] Codeine Drug Active Itching 2014-07 Univers Allergy 0-12 ity of 00:00: [place] 00 MD Jose rich [facility] Doxazosi Drug Active GI 2014-07 Nausea Univers n Intolera Intolerance 0-12 ity of nce 00:00: [place] 00 MD Jose rich [facility] Indometh Drug Active Shortness Of 2014-07 Un louie acin Intolera Breath 0-12 ity of nce 00:00: [place] 00 MD Jose rich [facility] Ezetimib Drug Active Other (See 2014-07 Back pain U nivers e Intolera Comments) 0-12 ity o f nce 00:00: [place] 00 MD Jose rich [facility] INDOMETH DRUG Active High Sob 2014-07 MD LEHMAN INGREDI 0-12 Anderso 00:00: n 00 AMLODIPI DRUG Active Other 2014-07 MD FONSECA INGREDI Anderso 00:00: n 00 CLONIDIN DRUG Active Other 2014-07 MD Julio INGREDI Anderso 00:00: n 00 CODEINE DRUG Active Itching 2014-07 INGREDI Anderso 00:00: n 00 DOXAZOSI DRUG Active Other 2014-07 MD Rich INGREDI Anderso 00:00: n 00 EZETIMIB DRUG Active Other 2014-07 MD Julio INGREDI Anderso 00:00: n 00 Family History Family Member Diagnosis Comments Start Date Stop Date Source Maternal aunt -Gynecology (Ovary, Un iversity of [place] Endometrial, Cervix, MD Kellie espinosa Cancer Vagina) Center Maternal uncle -Gastrointestinal Uni versity [facility] (Esophagus, Liver, MD And erson Cancer Bile Duct, Stomach, Cente r Pancreas, Colon, Rectum, Anus Natural sister -Multiple [facility] Natural sister -Melanoma [facility] Natural sister -Gastrointestinal Uni versity [facility] (Esophagus, Liver, MD And erson Cancer Bile Duct, Stomach, Cente r Pancreas, Colon, Rectum, Anus Social History Social Habit Start Date Stop Date Quantity Comments Source Alcohol intake 2021-11-14 2021-11-14 [facility] 00:00:00 00:00:00 non-drinker of Shannon espinosa alcohol (finding) Cancer Center Education 2021-02-14 2021-02-[address] [place] [address] 00:00:00 00:00:00 Shannon santillan [facility] Tobacco use and 2016-10-25 2016-10-25 Smokeless tobacco Un iversity of exposure 00:00:00 00:00:00 non-user [place] MD Jeronimo santillan [facility] Sex Ass[birth year] F Universit y of 00:00:00 00:00:00 [place] MD Jeronimo santillan [facility] Smoking Status Start Date Stop Date Source Never smoked tobacco [facility] Medications Ordered Filled Start Stop Current Ordering Indication Dosage Frequency Signature Comments Components Source Medication Medication Date Date Medication? Clinician (SIG) Name Name acetaminoph Yes 1{capsu Take 1 U nivers en 325 mg 11-26 le} capsule by ity of cap 11:20: mouth as [place] 10 needed. MD [facility] aspirin 81 Yes 81mg Take 81 mg U nivers mg EC -09 by mouth ity of tablet 11:20: daily. [place] 10 MD [facility] famotidine Yes 40mg Take 40 mg U nivers (PEPCID) 40 -09 by mouth ity of mg tablet 11:18: at [place] 47 bedtime. MD Jose rich [facility] Gleason traMADol Yes Metastasis 50mg Take 1 U nivers (Ultram) 50 4-23 to head and tablet (50 ity of mg tablet 00:00: neck lymph mg) by [place] 00 node mouth every 8 Anderso (eight) n hours as Cancer needed for Center severe pain. amoxicillin Squamous 875mg Take 1 Univers -clavulanat 4-19 04-27 cell tablet ity o f e 00:00: 04:59 carcinoma (875 mg) Donis as (Augmentin) 00 :00 of tongue by mouth 875 mg-125 twice Anderso mg per daily for n tablet 7 days. Cancer Center rosuvastati Yes TAKE 1 Univ ers n (CRESTOR) 4-15 TABLET BY ity of 5 mg tablet 00:00: MOUTH TWO [place] 00 TIMES A WEEK [facility] isosorbide 2020-07 Yes 30mg Take 30 mg U nivers mononitrate 1-02 by mouth ity of (IMDUR) 30 00:00: daily. [place] mg 24 hr 00 tablet [facility] lidocaine 2020-07 Yes Squamous 10mL Swish and Univers (lidocaine) 0-28 cell swallow 10 it y of 20 mg/mL 00:00: carcinoma mL every 4 [place] (2%) 00 of tongue (four) viscous hours as Anderso solution needed n (oral Cancer mucositis) Center . nystatin 2020-07 Yes Squamous [id number] Swish and Univers (MYCOSTATIN 0-26 cell swallow 5 ity of ) 100,000 00:00: carcinoma mL Donis as units/mL 00 of tongue (500,000 suspension Units) 3 Jeronimo so (three) n times a Cancer day. Center gabapentin 2020-07 Yes Squamous 300mg Take 1 Univers (Neurontin) 0-21 cell capsule ity o f 300 mg 00:00: carcinoma (300 mg[place] capsule 00 of tongue by mouth 3 M D (three) Anderso times a n day. Cancer Center lidocaine 2020-07- No Squamous 10mL Swish and Univers (lidocaine) 0- 10-28 cell swallow 10 i ty of 20 mg/mL 00:00: 00:00 carcinoma mL every 4 [place] (2%) 00 :00 of tongue (four) viscous hours as Anderso solution needed n (oral Cancer mucositis) Center . rosuvastati 2020-07- No 5mg Take 5 mg Univers n (CRESTOR) 0- by mouth 2 i ty of 5 mg tablet 09:49: 00:00 (two) [place] 03 :00 times a MD week MTH. [facility] aspirin 81 2020-07- No 81mg Take 81 mg Univers mg EC 05-08 by mouth ity of tablet 09:49: 00:00 daily. [place] 03 :00 MD [facility] amoxicillin 2021- No Primary 875mg Take 1 Univers -clavulanat 03-22 04- squamous tablet i ty of e 00:00: 00:00 cell (875 mg) [place] (AUGMENTIN) 00 :00 carcinoma by mouth 875 mg-125 of palatine twice A nderso mg per tonsil daily. n tablet Cancer Center traMADol No Squamous 50mg Take 1 Un louie (Ultram) 50 02-16-23 cell tablet (50 i ty of mg tablet 00:00: 00:00 carcinoma mg) by [place] 00 :00 of tongue mouth every 6 Anderso (six) n hours as Cancer needed for Center moderate pain. isosorbide 2020- No TK 1 T PO U nivers mononitrate -12 05- D ity of (IMDUR) 30 00:00: 00:00 [place] mg 24 hr 00 :00 tablet [facility] metoprolol Yes 50mg Take 50 mg U nivers tartrate 7-11 by mouth ity of (LOPRESSOR) 00:00: twice [place] 50 mg 00 daily. MD blanka rich [facility] levothyroxi 2016-07 Yes 1{tbl} Take 1 Un louie ne 0-24 tablet by ity of (SYNTHROID, 00:00: mouth [place] LEVOTHROID) 00 daily. 75 mcg Jose rich [facility] magnesium Yes 400mg Take 400 Uni vers oxide 7-14 mg by ity of (MAOX) 400 00:00: mouth [place] mg tablet 00 daily. MD Jose rich [facility] nitroglycer Yes .4mg Take 0.4 Un louie in 7-14 mg by ity of (NITROSTAT) 00:00: mouth as [place] 0.4 mg SL 00 needed for MD moscoso chest Anderso pain. Call n 911 if no Cancer relief Center after 3 doses Immunizations Ordered Filled Immunization Date Status Comments [facility] e Immunization Name Name Pfizer SARS-CoV-2 2021-02-25 Completed Univer sity of Vaccination (Purple 00:00:00 [place] [facility]) Cancer Center Pfizer SARS-CoV-2 2021-02-02 Completed Univer sity of Vaccination (Purple 00:00:00 [place] [facility]) Cancer Gleason Vital Signs Vital Name Observation Time Observation Value Comments Source Systolic blood 2021-12-06 14:43:02 158 mm[Hg] Univer sity of pressure [facility] Diastolic blood 2021-12-06 14:43:02 90 mm[Hg] Unive rsity of pressure [facility] Heart rate 2021-12-06 14:43:02 66 /[facility] Body temperature 2021-12-06 14:43:02 36.72 Dena Univ ersity of [facility] Respiratory rate 2021-12-06 14:43:02 18 /min Univ ersity Cec[facility] Oxygen saturation in 2021-12-06 14:43:02 98 /min [facility] Arterial blood by Sahnnon espinosa Pulse oximetry [facility] Body weight 2021-11-26 16:13:00 66.6 kg Universi ty [facility] BMI 2021-11-26 16:13:00 25.69 kg/m2 [facility] Body height 2021-11-10 03:25:00 161 cm [facility] MD [facility] Procedures Procedure Date / Time Performing Clinician Source Performed MRI HEAD/NECK SIMULATION 2021-12-07 16:14:17 Prince Davey [facility] W WO CONTRAST (RO) [facility] POC CREATININE 2021-12-07 14:49:00 Prince Davey [facility] CT SOFT TISSUE NECK W 2021-12-06 17:39:01 Prince Davey [facility] CONTRAST [facility] COVID-19 (SARS-COV-2) 2021-12-05 18:43:00 Faraz Burns [facility] PCR ASYMPTOMATIC [facility] PATHOLOGY SURGICAL 2021-11-09 20:41:00 Luis Miguel Ly [facility] INTERPRETATION [facility] LEVEL V NECK DISSECTION 2021-11-09 19:14:00 Luis Miguel Ly [facility] TYPE AND SCREEN 2021-11-09 18:50:00 Tremaine Quinn [facility] ABORH 2021-11-09 18:50:00 Tremaine Quinn [facility] ANTIBODY SCREEN 2021-11-09 18:50:00 Tremaine Quinn [facility] TMP INTERPRETATION 2021-11-09 18:50:00 Tremaine Quinn [facility] ANTIBODY SCREEN NEGATIVE [facility] CLOT EXPIRATION DATE 2021-11-09 18:50:00 Tremaine Quinn [facility] POC GLUCOSE SCREEN 2021-11-09 16:01:00 Luis Miguel Ly [facility] BLOOD UREA NITROGEN 2021-11-06 20:13:00 Prakash Humphries [facility] COMPLETE BLOOD COUNT W/ 2021-11-06 20:13:00 Prakash Humphries [facility] DIFFERENTIAL [facility] SERUM CREATININE 2021-11-06 20:13:00 Reece Prakash [facility] ELECTROLYTE PANEL 2021-11-06 20:13:00 Reece [facility] GLUCOSE, RANDOM 2021-11-06 20:13:00 Reece [facility] HEMOGLOBIN A1C 2021-11-06 20:13:00 Reece [facility] SERUM CREATININE 2021-11-06 20:13:00 Reece [facility] .GLOMERULAR FILTRATION 2021-11-06 20:13:00 Prakash Humphries [facility] RATE [facility] Results CBC 2021-11-06 20:13:00 Reece [facility] MANUAL DIFFERENTIAL 2021-11-06 20:13:00 Prakash Humphries [facility] MD COVID-19 (SARS-COV-2) 2021-11-06 17:32:00 Luis Miguel Ly [facility] PCR ASYMPTOMATIC [facility] US HEAD NECK SOFT TISSUE 2021-10-24 16:10:35 Alyce [facility] [place] [facility] US FINE NEEDLE ASPIRATION 2021-10-24 16:10:35 Alyce [facility] [place] [facility] CYTOLOGY IMAGE-GUIDED FNA 2021-10-24 14:16:00 Luis Miguel Ly [facility] INTERPRETATION [facility] CT SOFT TISSUE NECK W 2021-10-17 19:48:40 Naresh Bradford [facility] CONTRAST [facility] POC CREATININE 2021-10-17 18:33:00 Sanchez [facility] [place] BLOOD UREA NITROGEN 2021-10-17 18:08:00 Naresh Bradford [facility] SERUM CREATININE 2021-10-17 18:08:[address] [facility] FREE THYROXINE 2021-10-17 18:08:00 Sanchez [facility] [place] THYROID STIMULATING 2021-10-17 18:08:00 Naresh Bradford [facility] HORMONE [facility] SERUM CREATININE 2021-10-17 18:08:[address] [facility] .GLOMERULAR FILTRATION 2021-10-17 18:08:00 Na[facility] COVID-19 (SARS-COV-2) 2021-08-09 14:49:00 Miya Matos [facility] PCR-ASYMPTOMATIC [facility] CT SOFT TISSUE NECK W 2021-08-09 14:21:29 Prince Davey [facility] CONTRAST [facility] POC CREATININE 2021-08-09 13:33:00 [facility] 2021-08-09 12:50:00 Prince Davey [facility] HORMONE [facility] FREE THYROXINE 2021-08-09 12:50:00 [facility]LO[facility] UREA NITROGEN 2021-08-09 12:50:00 Prince Davey [facility] SERUM CREATININE 2021-08-09 12:50:00 [facility]INE 2021-08-09 12:50:00 Prince Davey [facility] .GLOMERULAR FILTRATION 2021-08-09 12:50:00 [facility] [place] [facility] COVID-19 (SARS-COV-2) 2021-07-16 18:04:00 Luis Miguel Ly [facility] PCR ASYMPTOMATIC [facility] Plan of Care Planned Activity Planned Date Details Comments Source Future Scheduled 2022-04-30 COVID-19 Vaccination Uni [facility] Test 16:04:16 (3 - Pfizer risk [facility] Cancer series) [code = Center COVID-19 Vaccination (3 - Pfizer risk series)] Encounters Start End Encounter Admission Attending Care Care Encounter Source Date/Time Date/Time Type Type Clinicians Facility Department ID 2021-02-19 Outpatient SYSTEM, [facility] [id number] 12:17:39 PROVIDER Art rich 2022-04-11 2022-04-11 Balaji Brennan 1.2.840.1 [id number] Univers 00:00:00 00:00:00 Only Tara Nori [id number] ity of 3.412.2.7 [place] .3.820814 MD Maurer8 [facility] 2022-04-10 2022-04-10 Balaji Brennan 1.2.840.1 [id number] Univers 00:00:00 00:00:00 Only Tara E [id number] ity of 3.412.2.7 [place] .3.279442 MD Maurer8 [facility] 2022-02-12 2022-02-12 Orders Issace, 1.2.840.1 [id number] Univers 00:00:00 00:00:00 Only Miya [id number] ity of 3.412.2.7 [place] .3.800497 MD Maurer8 [facility] 2022-01-01 2022-01-01 Orders Petar, 1.2.840.1 [id number] Univers 00:00:00 00:00:00 Only Prince Shultz [id number] ity of 3.412.2.7 [place] .3.164439 MD Maurer8 [facility] 2021-12-31 2021-12-31 [facility] 1.2.840.1 [id number] [facility] 10:57:47 23:59:00 Encounter , Luis Miguel Shultz [id number] it y of 3.412.2.7 [place] .3.186483 MD Maurer8 [facility] 2021-12-31 2021-12-31 Documentat Faraz Burns 1.2.840.1 [id number] Univers 00:00:00 00:00:00 ion [id number] ity of 3.412.2.7 [place] .3.313532 MD Mauerr8 [facility] 2021-12-31 2021-12-31 Documentat Daya 1.2.840.1 [id number] Univers 00:00:00 00:00:00 ion Jeff [id number] ity of 3.412.2.7 [place] .3.087823 MD Maurer8 [facility] 2021-12-31 2021-12-31 Travel 1.2.840.1 [id number] Univers 00:00:00 00:00:00 [id number] 350.1.13.41 ity of 3.412.2.7 2.2.7.3.698 [place] .3.909176 084.8 MD Maurer8 [facility] 2021-12-28 2021[facility]12-28 [facility] [id number] Univers 10:30:00 23:59:00 Encounter Bayron Burton [id number] ity of 3.412.2.7 [place] .3.131023 MD Maurer8 [facility] 2021-12-28 2021-12-28 [facility] 1.2.840.1 [id number] Univers 09:01:55 10:29:00 Encounter Luis Miguel [id number] it y of 3.412.2.7 [place] .3.352363 MD Maurer8 [facility] 2021-12-28 2021-12-28 Documentat Bayron Burton 1.2.840.1 [id number] Univers 00:00:00 00:00:00 ion 16716.1.1 ity of 3.412.2.7 [place] .3.440300 MD Maurer8 [facility] 2021-12-28 2021-12-28 Travel 1.2.840.1 [id number] Univers 00:00:00 00:00:00 [id number] 350.1.13.41 ity of 3.412.2.7 2.2.7.3.698 [place] .[id number] 084.8 MD Baker [facility] 2021-12-26 2021-12-26 [facility] 1.2.840.1 [id number] Univers 09:06:43 23:59:00 Encounter , Luis Miguel Shultz [id number] it y of 3.412.2.7 [place] .3.835290 MD Baker [facility] 2021-12-26 2021-12-26 Documentat Bayron Burton 1.2.840.1 [id number] Univers 00:00:00 00:00:00 ion [id number] ity of 3.412.2.7 [place] .3.989857 MD Baker [facility] 2021-12-26 2021-12-26 Travel 1.2.840.1 [id number] Univers 00:00:00 00:00:00 [id number] 350.1.13.41 ity of 3.412.2.7 2.2.7.3.698 [place] .3.794087 084.8 MD Baker [facility] 2021-12-24 2021-12-24 [facility] 1.2.840.1 [id number] Univers 09:59:18 23:59:00 Encounter , Luis Miguel Shultz [id number] it y of 3.412.2.7 [place] .3.794021 MD Baker [facility] 2021-12-24 2021-12-24 Documentat Ameena Longoria 1.2.840.1 [id number] Univers 00:00:00 00:00:00 ion Sara 73319.1.1 it y of 3.412.2.7 [place] .3.864781 MD Baker [facility] 2021-12-24 2021-12-24 Travel 1.2.840.1 [id number] Univers 00:00:00 00:00:00 [id number] 350.1.13.41 ity of 3.412.2.7 2.2.7.3.698 [place] .[id number] 084.8 MD [facility] 2021-12-21 2021-12-21 [facility] 1.2.840.1 [id number] Univers 08:45:01 23:59:00 Luis Miguel Porter 67383.1.1 it y of 3.412.2.7 [place] .3.025159 MD [facility] 2021-12-21 2021-12-21 Documentat Bayron Burton 1.2.840.1 [id number] Univers 00:00:00 00:00:00 ion 42752.1.1 ity of 3.412.2.7 [place] .3.857295 MD [facility] 2021-12-21 2021-12-21 [facility] 1.2.840.1 1.2.685.202 8666 [id number] Univers 00:00:00 00:00:00 90917.1.1 350.1.13.41 ity of 3.412.2.7 [place].3.698 [place] .3.265207 084.8 MD [facility] 2021-12-13 2021-12-13 Documentat Faraz Burns 1.2.840.1 [id number] [facility] 00:00:00 00:00:00 ion 31595.1.1 ity of 3.412.2.7 [place] .3.376919 MD [facility] 2021-12-10 2021-12-10 [facility] 1.2.840.1 [id number] 1 [id number] Univers 06:00:00 23:59:00 Luis Miguel Porter 19392.1.1 it y of 3.412.2.7 [place] .3.504579 MD [facility] 2021-12-07 2021-12-07 [facility] Prince Davey 1.2.840.1 [id number] Univers 08:38:37 23:59:00 Encounter Faraz Burns 61098.1.1 ity of 3.412.2.7 [place] .3.203591 MD [facility] 2021-12-07 2021-12-07 Travel 1.2.840.1 1.2.013.822 7014 [id number] Univers 00:00:00 00:00:00 28586.1.1 350.1.13.41 ity of 3.412.2.7 [place]7.3.698 [place] .3.120157 084.8 MD [facility] 2021-12-06 2021-12-06 [facility] Prince Davey 1.2.840.1 [id number] Univers 09:34:36 23:59:00 Faraz August 86475.1.1 ity of 3.412.2.7 [place] .3.942409 MD [facility] 2021-12-06 2021-12-06 [facility], 1.2.840.1 [id number] Univers 12:30:00 13:30:00 Procedure Prince Shultz 71625.1.1 it y of 3.412.2.7 [place] .3.772311 MD [facility] 2021-12-06 2021-12-06 Documentat Faraz Burns 1.2.840.1 [id number] Univers 00:00:00 00:00:00 ion 23457.1.1 ity of 3.412.2.7 [place] .3.508240 MD [facility] 2021-12-06 2021-12-06 Documentat Faraz Burns 1.2.840.1 [id number] Univers 00:00:00 00:00:00 ion 58246.1.1 ity of 3.412.2.7 [place] .3.481178 MD [facility] 2021-12-06 2021-12-06 Travel 1.2.840.1 1.2.379.311 9749 [id number] Univers 00:00:00 00:00:00 98243.1.1 350.1.13.41 ity of 3.412.2.7 [place]7.3.698 [place] .3.188053 084.8 MD [facility] 2021-12-05 2021-12-05 Clinical Petar, Prince Shultz 1.2.840.1 [id number] [facility] 14:15:00 14:15:00 Support Ursula Da Silva 22139.1.1 ity of 3.412.2.7 [place] .3.941103 MD [facility] 2021-12-05 2021-12-05 Travel 1.2.840.1 1.2.989.398 2821 [id number] Univers 00:00:00 00:00:00 94404.1.1 350.1.13.41 ity of 3.412.2.7 2.[place]7.3.698 [place] .3.007138 084.8 MD [facility] 2021-12-03 2021-12-03 Orders Watts, 1.2.840.1 [id number] 8103 Univers 00:00:00 00:00:00 Only Meme Porsche 97471.1.1 ity of 3.412.2.7 [place] .3.509653 MD [facility] 2021-11-30 2021-11-30 Orders Amezcua, 1.2.840.1 [id number] Univers 00:00:00 00:00:00 Only David 31985.1.1 ity of Van 3.412.2.7 [place] .3.382568 MD [facility] 2021-11-30 2021-11-30 Orders Petar, 1.2.840.1 [id number] Univers 00:00:00 00:00:00 Only Prince Shultz 21851.1.1 ity of 3.412.2.7 [place] .3.568224 MD Maurer8 [facility] 2021-11-30 2021-11-30 Orders Roxanna, 1.2.840.1 [id number] [id number] Univers 00:00:00 00:00:00 Only Geo Wall 75518.1.1 ity of 3.412.2.7 [place] .3.308886 MD Maurer8 [facility] 2021-11-30 2021-11-30 Orders Lizeth, 1.2.840.1 [id number] Univers 00:00:00 00:00:00 Only Chikis 01178.1.1 ity of 3.412.2.7 [place] .3.261220 MD Maurer8 [facility] 2021-11-26 2021-11-26 [facility] 1.2.840.1 [id number] 1 [id number] Univers 10:55:01 23:59:00 Encounter , Luis Miguel Shultz 48881.1.1 it y of 3.412.2.7 [place] .3.155747 MD Maurer8 [facility] 2021-11-26 2021-11-26 Travel 1.2.840.1 1.2.326.047 1174 [id number] Univers 00:00:00 00:00:00 86063.1.1 350.1.13.41 ity of 3.412.2.7 [place]7.3.698 [place] .3.137167 084.8 MD Maurer8 [facility] 2021-11-09 2021-11-10 [facility] 1.2.840.1 [id number] 1 [id number] Univers 10:21:00 12:41:00 Encounter Luis Miguel 32343.1.1 it y of 3.412.2.7 [place] .3.894023 MD Maurer8 [facility] 2021-11-09 2021-11-10 Outpatient [facility] HN Surgery [id number] 10:21:00 12:41:00 , LUIS MIGUEL rich 2021-11-10 2021-11-10 Balaji Peralta, 1.2.840.1 [id number] [id number] Univers 00:00:00 00:00:00 Only Willem Benavides 33569.1.1 ity of 3.412.2.7 [place] .3.930060 MD [facility] 2021-11-10 2021-11-10 Orders Altaf, 1.2.840.1 [id number] Univers 00:00:00 00:00:00 Only Keith 11668.1.1 ity of 3.412.2.7 [place] .3.805617 MD [facility] 2021-11-09 2021-11-09 Surgery [place] 1.2.840.1 [id number] 10 [id number] Univers 12:50:00 16:30:00 , Luis Miguel Shultz 03984.1.1 ity of 3.412.2.7 [place] .3.297910 MD [facility] 2021-11-09 2021-11-09 Anesthesia Tremaine Quinn. 1.2.840.1 [id number] Univers 14:44:00 16:21:00 Event Leidy Flanagan 47538.1.1 ity of 3.412.2.7 [place] .3.516228 MD [facility] 2021-11-09 2021-11-09 Travel 1.2.840.1 1.2.638.337 5258 [id number] Univers 00:00:00 00:00:00 96765.1.1 350.1.13.41 ity of 3.412.2.7 2.[place].7.3.698 [place] .3.003778 084.8 MD [facility] 2021-11-07 2021-11-07 Anesthesia Mark, 1.2.840.1 [id number] Univers 16:20:55 16:20:55 Event Gabby Porsche 84175.1.1 it y of 3.412.2.7 [place] .3.071180 MD [facility] 2021-11-06 2021-11-06 [facility] Prakash Humphries 1.2.840.1 [id number] 10 [id number] [facility] 15:04:55 23:59:00 Encounter 89516.1.1 it y of 3.412.2.7 [place] .3.048462 [facility] 2021-11-06 2021-11-06 Outpatient PRAKASH WINTERS [facility] MDA [id number] 15:04:55 23:59:00 Art rich 2021-11-06 2021-11-06 ASHU Bradford 1.2.840.1 [id number] [facility] 14:00:00 15:36:27 Appointblaine Perez 36134.1.1 i ty of ts 3.412.2.7 [place] .3.991428 MD [facility] 2021-11-06 2021-11-06 Outpatient DAPHNE KAYLEEEDWARD [facility] MDA [id number] 12:51:01 15:36:27 NARESH rich 2021-11-06 2021-11-06 Clinical Naresh Bradford 1.2.840.1 [id number] [facility] 13:30:00 13:30:00 Support Sophia Jeronimo 46458.1.1 ity of 3.412.2.7 [place] .3.624261 MD [facility] 2021-11-06 2021-11-06 [facility] 1.2.840.1 [id number] 10 [id number] [facility] 09:45:00 12:45:41 Visit Luis Miguel 30584.1.1 ity of 3.412.2.7 [place] .3.714813 MD Maurer8 Jose rich [facility] 2021-11-06 2021-11-06 [facility] [id number] 09:25:01 12:45:41 , LUIS MIGUEL rich 2021-11-06 2021-11-06 Outpatient DAPHNE SWEENEYPUSHPAANABELL MDA [id number] 12:23:42 12:34:14 NARESH rich 2021-11-06 2021-11-06 Travel 1.2.840.1 1.2.610.703 [id number] [id number] Univers 00:00:00 00:00:00 69374.1.1 350.1.13.41 ity of 3.412.2.7 2.[place]7.3.698 [place] .3.777696 084.8 MD [facility] 2021-11-04 2021-11-04 Prep for Sanchez, 1.2.840.1 [id number] [id number] Univers 00:00:00 00:00:00 Surgery Naresh 67478.1.1 ity of 3.412.2.7 [place] .3.980826 MD [facility] 2021-11-01 2021-11-01 Orders Faraz Burns 1.2.840.1 [id number] Univers 00:00:00 00:00:00 Only 25167.1.1 ity of 3.412.2.7 [place] .3.255237 MD [facility] 2021-10-24 2021-10-24 [facility] 1.2.840.1 [id number] Univers 08:30:00 10:30:00 Luis Miguel Brooks 82618.1.1 it y of 3.412.2.7 [place] .3.414386 MD [facility] 2021-10-24 2021-10-24 Outpatient [facility] [id number] 08:19:36 08:19:36 LUIS MIGUEL 2021-10-24 2021-10-24 Travel 1.2.840.1 1.2.262.131 9341 [id number] Univers 00:00:00 00:00:00 57464.1.1 350.1.13.41 ity of 3.412.2.7 [place]7.3.698 [place] .3.150493 084.8 MD [facility] 2021-10-22 2021-10-22 [facility] 1.2.840.1 [id number] 1 [id number] Univers 10:27:06 23:59:00 Luis Miguel Porter 25074.1.1 it y of 3.412.2.7 [place] .3.185955 .8 Jose rich [facility] 2021-10-22 2021-10-22 Outpatient DAPHNE LY [facility] [id number] 10:27:06 23:59:00 , LUIS MIGUEL rich 2021-10-22 2021-10-22 Travel 1.2.840.1 1.2.450.868 2360 [id number] [facility] 00:00:00 00:00:00 97371.1.1 350.1.13.41 ity of 3.412.2.7 2.[place]7.3.698 [place] .3.596378 084.8 .8 [facility] 2021-10-17 2021-10-17 Outpatient SANCHEZ [facility] MDA [id number] 13:11:51 23:59:00 NARESH rich 2021-10-17 2021-10-17 [facility], 1.2.840.1 [id number] [id number] [facility] 13:11:51 23:59:00 Encounter Naresh 09934.1.1 it y of 3.412.2.7 [place] .3.674538 .8 [facility] 2021-10-17 2021-10-17 Outpatient SANCHEZ [facility] MDA [id number] 12:45:00 13:10:00 NARESH rich 2021-10-17 2021-10-17 [facility], 1.2.840.1 [id number] 1090 [id number] [facility] 12:45:00 13:10:00 Encounter Naresh 68723.1.1 it y of 3.412.2.7 [place] .3.286259 .8 Jose rich [facility] 2021-10-17 2021-10-17 Travel 1.2.840.1 1.2.459.472 6789 [id number] [facility] 00:00:00 00:00:00 03040.1.1 350.1.13.41 ity of 3.412.2.7 2.[place].7.3.698 [place] .3.107290 084.8 MD Maurer8 [facility] 2021-08-13 2021-08-13 Outpatient MALACHI [facility] [id number] 09:30:14 23:59:00 , LUIS MIGUEL rich 2021-08-13 2021-08-13 [facility] 1.2.840.1 [id number] 1 [id number] [facility] 09:30:14 23:59:00 Encounter Luis Miguel 82080.1.1 it y of 3.412.2.7 [place] .3.920235 MD [facility] 2021-08-13 2021-08-13 Travel 1.2.840.1 1.2.424.768 3881 [id number] Univers 00:00:00 00:00:00 87144.1.1 350.1.13.41 ity of 3.412.2.7 2.2.7.3.698 [place] .3.917288 084.8 .Jf [facility] 2021-08-10 2021-08-10 Outpatient [facility] [id number] [place] 09:31:13 23:59:00 MIYA rich 2021-08-10 2021-08-10 [facility], 1.2.840.1 [id number] [facility] 09:31:13 23:59:00 Encounter Miya 13654.1.1 it y of 3.412.2.7 [place] .3.703059 MD [facility] 2021-08-10 2021-08-10 Telephone [facility], 1.2.840.1 [id number] Univers 00:00:00 00:00:00 Sherice Morrell 11986.1.1 it y of 3.412.2.7 [place] .3.717726 MD [facility] 2021-08-10 2021-08-10 Travel 1.2.840.1 1.2.866.786 1127 [id number] Univers 00:00:00 00:00:00 85763.1.1 350.1.13.41 ity of 3.412.2.7 [place]7.3.698 [place] .3.000746 084.8 .8 [facility] 2021-08-09 2021-08-09 Outpatient FARAZ BHATT MDA MDA [id number] 11:30:00 23:59:00 Art cox monett 2021-08-09 2021-08-09 [facility] Faraz Burns 1.2.840.1 [id number] 10 [id number] [facility] 11:30:00 23:59:00 Encounter 82827.1.1 it y of 3.412.2.7 [place] .3.565065 .8 [facility] 2021-08-09 2021-08-09 Outpatient EL PETAR, MDA MDA [id number] 06:57:55 11:29:00 PRINCE rich 2021-08-09 2021-08-09 [facility] Petar, 1.2.840.1 [id number] [facility] 06:57:55 11:29:00 Encounter Prince Shultz 91676.1.1 it y of 3.412.2.7 [place] .3.451897 .8 [facility] 2021-08-09 2021-08-09 Clinical Luis Miguel Ly 1.2.840.1 [id number] [facility] 09:15:00 09:15:00 Support Saba Quezada 01543.1.1 ity of 3.412.2.7 [place] .3.179297 .8 [facility] 2021-08-09 2021-08-09 Outpatient MALACHI ANABELL MDA [id number] 08:43:52 08:52:23 , LUIS MIGUEL rich 2021-08-09 2021-08-09 Outpatient EL PETAR, MDA MDA [id number] 06:33:54 06:56:00 PRINCE rich 2021-08-09 2021-08-09 [facility] Petar, 1.2.840.1 [id number] [facility] 06:33:54 06:56:00 Encounter Prince Shultz 30422.1.1 it y of 3.412.2.7 [place] .3.639052 MD Maurer8 [facility] 2021-08-09 2021-08-09 Travel 1.2.840.1 1.2.240.008 8759 [id number] [facility] 00:00:00 00:00:00 38847.1.1 350.1.13.41 ity of 3.412.2.7 2.2.7.3.698 [place] .3.832176 084.8 MD Maurer8 [facility] 2021-07-23 2021-07-23 Orders Shay, 1.2.840.1 [id number] [id number] Univers 00:00:00 00:00:00 Only Peter Kellie 69552.1.1 it y of 3.412.2.7 [place] .3.130088 MD Maurer8 [facility] 2021-07-18 2021-07-[address] [facility] 1.2.840.1 [id number] 10 [id number] Univers 00:00:00 00:00:00 Only on, Mónica A. 79097.1.1 ity of 3.412.2.7 [place] .3.630227 MD Maurer8 [facility] 2021-07-17 2021-07-17 Outpatient [facility] [id number] MD 09:55:11 23:59:00 ON, MÓNICA [facility] 2021-07-17 2021-07-17 [facility] 1.2.840.1 [id number] 1 [id number] [facility] 09:55:11 23:59:00 Encounter on, Mónica Amador 74792.1.1 ity of 3.412.2.7 [place] .3.921730 MD Maurer8 [facility] 2021-07-17 2021-07-17 Travel 1.2.840.1 1.2.188.799 [id number] [id number] Univers 00:00:00 00:00:00 50010.1.1 350.1.13.41 ity of 3.412.2.7 2.[place].7.3.698 [place] .3.338236 084.8 MD [facility] 2021-07-16 2021-07-16 Outpatient MALACHI [facility] [id number] 11:42:15 16:44:43 , LUIS MIGUEL rich 2021-07-16 2021-07-16 Clinical Luis Miguel Ly 1.2.840.1 [id number] [facility] 11:30:00 16:44:43 Support Melita Perkins 54768.1.1 ity of 3.412.2.7 [place] .3.610414 MD [facility] 2021-07-16 2021-07-16 Travel 1.2.840.1 1.2.760.574 9736 [id number] [facility] 00:00:00 00:00:00 81192.1.1 350.1.13.41 ity of 3.412.2.7 2.2.7.3.698 [place] .3.622608 084.8 MD [facility] 2021-07-11 2021-07-11 Orders Carlo 1.2.840.1 [id number] [id number] Univers 00:00:00 00:00:00 Only Miya 07199.1.1 ity of 3.412.2.7 [place] .3.996331 MD [facility] 2021-06-12 2021-06-12 [id number] 07:25:51 23:59:00 , LUIS MIGUEL rich 2021-06-12 2021-06-12 [facility] 1.2.840.1 [id number] [facility] 07:25:51 23:59:00 Luis Miguel Porter 01362.1.1 it y of 3.412.2.7 [place] .3.617088 MD [facility] 2021-06-12 2021-06-12 Documentat Faraz Burns 1.2.840.1 [id number] [facility] 00:00:00 00:00:00 ion 32144.1.1 ity of 3.412.2.7 [place] .3.707623 MD [facility] 2021-06-12 2021-06-12 Travel 1.2.840.1 1.2.422.932 6930 [id number] [facility] 00:00:00 00:00:00 02168.1.1 350.1.13.41 ity of 3.412.2.7 2.2.7.3.698 [place] .3.764048 084.8 MD [facility] 2021-06-11 2021-06-11 Outpatient [facility] [id number] 12:05:45 23:59:00 , LUIS MIGUEL rich 2021-06-11 2021-06-11 [facility] 1.2.840.1 [id number] 1 [id number] [facility] 12:05:45 23:59:00 Luis Miguel Porter 89544.1.1 it y of 3.412.2.7 [place] .3.505519 MD [facility] 2021-06-11 2021-06-11 Travel 1.2.840.1 1.2.985.775 5410 [id number] [facility] 00:00:00 00:00:00 00666.1.1 350.1.13.41 ity of 3.412.2.7 2.2.7.3.698 [place] .3.103955 08Sandra.8 MD [facility] 2021-06-10 2021-06-10 Outpatient [facility] MDA [id number] 12:17:14 23:59:00 , LUIS MIGUEL rich 2021-06-10 2021-06-10 [facility] 1.2.840.1 [id number] 1 [id number] [facility] 12:17:14 23:59:00 Luis Miguel Porter 08842.1.1 it y of 3.412.2.7 [place] .3.080447 MD [facility] 2021-06-10 2021-06-10 Travel 1.2.840.1 1.2.984.342 7414 [id number] [facility] 00:00:00 00:00:00 11848.1.1 350.1.13.41 ity of 3.412.2.7 2.2.7.3.698 [place] .3.986383 084.8 MD [facility] 2021-06-08 2021-06-08 Outpatient [facility] MDA [id number] 05:45:19 23:59:00 , LUIS MIGUEL rich 2021-06-08 2021-06-08 [facility] 1.2.840.1 [id number] 1 [id number] [facility] 05:45:19 23:59:00 Luis Miguel Porter 76734.1.1 it y of 3.412.2.7 [place] .3.293636 MD [facility] 2021-06-08 2021-06-08 Orders Carmen-Chandrakant 1.2.840.1 [id number] Univers 00:00:00 00:00:00 Only massimo Mary 11447.1.1 ity of 3.412.2.7 [place] .3.938166 MD [facility] 2021-06-08 2021-06-08 Orders Petar, 1.2.840.1 [id number] Univers 00:00:00 00:00:00 Only Prince Shultz 03642.1.1 ity of 3.412.2.7 [place] .3.482433 MD [facility] 2021-06-08 2021-06-08 Travel 1.2.840.1 1.2.558.683 7399 [id number] [facility] 00:00:00 00:00:00 76363.1.1 350.1.13.41 ity of 3.412.2.7 2.2.7.3.698 [place] .3.645532 084.8 MD [facility] 2021-06-07 2021-06-07 [id number] 12:32:46 23:59:00 , LUIS MIGUEL rich 2021-06-07 2021-06-07 [facility] 1.2.840.1 [id number] 1 [id number] [facility] 12:32:46 23:59:00 Encounter , Luis Miguel Shultz 21681.1.1 it y of 3.412.2.7 [place] .3.438756 MD Maurer8 [facility] 2021-06-07 2021-06-07 Outpatient FARAZ BHATT [facility] [id number] [place] 10:25:47 12:31:00 [facility] 2021-06-07 2021-06-07 [facility] Faraz Burns 1.2.840.1 [id number] 10 [id number] [facility] 10:25:47 12:31:00 Encounter 23052.1.1 it y of 3.412.2.7 [place] .3.137596 MD Maurer8 [facility] 2021-06-07 2021-06-07 Travel 1.2.840.1 1.2.471.577 5631 [id number] [facility] 00:00:00 00:00:00 99560.1.1 350.1.13.41 ity of 3.412.2.7 2.2.7.3.698 [place] .3.613903 084.8 MD Maurer8 [facility] 2021-06-06 2021-06-06 [facility] 1.2.840.1 [id number] 1 [id number] [facility] 07:28:53 23:59:00 Encounter , Luis Miguel Shultz 24627.1.1 it y of 3.412.2.7 [place] .3.871792 MD Maurer8 [facility] 2021-06-06 2021-06-06 [facility] [id number] [place] 07:28:53 23:59:00 , LUIS MIGUEL rich 2021-06-06 2021-06-06 Travel 1.2.840.1 1.2.380.709 7730 [id number] [facility] 00:00:00 00:00:00 05943.1.1 350.1.13.41 ity of 3.412.2.7 2.2[place]7.3.698 [place] .3.427254 084.8 MD [facility] 2021-06-05 2021-06-05 [facility] 1.2.840.1 [id number] 1 [id number] [facility] 15:32:06 23:59:00 Encounter , Luis Miguel Shultz 68288.1.1 it y of 3.412.2.7 [place] .3.988839 MD [facility] 2021-06-05 2021-06-05 Outpatient [facility] [id number] [place] 15:32:06 23:59:00 , LUIS MIGUEL rich 2021-06-05 2021-06-05 Travel 1.2.840.1 1.2.562.119 0890 [id number] [facility] 00:00:00 00:00:00 46453.1.1 350.1.13.41 ity of 3.412.2.7 2.2.7.3.698 [place] .3.862602 084.8 MD [facility] 2021-06-04 2021-06-04 [facility] 1.2.840.1 [id number] 1 [id number] [facility] 10:20:10 23:59:00 Encounter , Luis Miguel Shultz 08454.1.1 it y of 3.412.2.7 [place] .3.410287 MD [facility] 2021-06-04 2021-06-04 Outpatient [facility] [id number] [place] 10:20:10 23:59:00 , LUIS MIGUEL rich 2021-06-04 2021-06-04 Travel 1.2.840.1 1.2.737.894 [id number] [facility] 00:00:00 00:00:00 42809.1.1 350.1.13.41 ity of 3.412.2.7 2.2.7.3.698 [place] .3.044898 084.8 MD [facility] 2021-06-01 2021-06-01 [facility] 1.2.840.1 [id number] 1 [id number] Univers 07:12:43 23:59:00 Encounter , Luis Miguel Shultz 21171.1.1 it y of 3.412.2.7 [place] .3.413072 MD Maurer8 [facility] 2021-06-01 2021-06-01 Outpatient [facility] MDA [id number] 07:12:43 23:59:00 , LUIS MIGUEL rich 2021-06-01 2021-06-01 Documentat Sofi, 1.2.840.1 [id number] 1 [id number] [facility] 00:00:00 00:00:00 ion Mayela 66249.1.1 ity of 3.412.2.7 [place] .3.121491 MD Maurer8 [facility] 2021-06-01 2021-06-01 Travel 1.2.840.1 1.2.661.430 2888 [id number] [facility] 00:00:00 00:00:00 66865.1.1 350.1.13.41 ity of 3.412.2.7 2.2.7.3.698 [place] .3.385573 084.8 MD Maurer8 [facility] 2021-05-31 2021-05-31 [facility] 1.2.840.1 [id number] 1 [id number] [facility] 15:41:21 23:59:00 Encounter , Luis Miguel Shultz 90041.1.1 it y of 3.412.2.7 [place] .3.337046 MD Maurer8 [facility] 2021-05-31 2021-05-31 Outpatient [facility] [id number] 15:41:21 23:59:00 , LUIS MIGUEL rich 2021-05-31 2021-05-31 [facility] Faraz Burns 1.2.840.1 [id number] [facility] 14:44:07 15:40:00 Encounter 61408.1.1 it y of 3.412.2.7 [place] .3.238386 [facility] 2021-05-31 2021-05-31 Outpatient FARAZ BURNS [facility] [id number] [place] 14:44:07 15:40:00 Art rich 2021-05-31 2021-05-31 Travel 1.2.840.1 1.2.128.777 [id number] [facility] 00:00:00 00:00:00 09175.1.1 350.1.13.41 ity of 3.412.2.7 [place].3.698 [place] .3.067668 084.8 MD Maurer8 [facility] 2021-05-30 2021-05-30 [facility] 1.2.840.1 [id number] [facility] 18:00:20 23:59:00 Encounter , Luis Miguel Shultz 80840.1.1 it y of 3.412.2.7 [place] .3.305930 MD Maurer8 [facility] 2021-05-30 2021-05-30 Outpatient [facility] [id number] [place] 18:00:20 23:59:00 , LUIS MIGUEL [facility] 2021-05-30 2021-05-30 Travel 1.2.840.1 1.2.634.620 [id number] [facility] 00:00:00 00:00:00 88805.1.1 350.1.13.41 ity of 3.412.2.7 [place]7.3.698 [place] .3.647800 084.8 MD Maurer8 [facility] 2021-05-29 2021-05-29 [facility] 1.2.840.1 [id number] [facility] 18:51:20 23:59:00 Encounter , Luis Miguel Shultz 30469.1.1 it y of 3.412.2.7 [place] .3.922653 MD Maurer8 [facility] 2021-05-29 2021-05-29 Outpatient [facility] [id number] [place] 18:51:20 23:59:00 , LUIS MIGUEL rich 2021-05-29 2021-05-29 Travel 1.2.840.1 1.2.355.931 [id number] [facility] 00:00:00 00:00:00 58755.1.1 350.1.13.41 ity of 3.412.2.7 2.[place]7.3.698 [place] .3.405382 084.8 MD Baker [facility] 2021-05-28 2021-05-28 [facility] Faraz Burns 1.2.840.1 [id number] [facility] 15:43:36 23:59:00 Encounter 82870.1.1 it y of 3.412.2.7 [place] .3.241018 MD Baker [facility] 2021-05-28 2021-05-28 Outpatient FARAZ BURNS [facility] [id number] [place] 15:43:36 23:59:00 [facility] 2021-05-28 2021-05-28 [facility] 1.2.840.1 [id number] [facility] 13:23:27 15:42:00 Luis Miguel Porter 86128.1.1 it y of 3.412.2.7 [place] .3.804440 MD Baker [facility] 2021-05-28 2021-05-28 Outpatient [facility] [id number] [place] 13:23:27 15:42:00 , LUIS MIGUEL rich 2021-05-28 2021-05-28 Documentat Faraz Burns 1.2.840.1 [id number] [facility] 00:00:00 00:00:00 ion 67034.1.1 ity of 3.412.2.7 [place] .3.927253 MD Baker [facility] 2021-05-28 2021-05-28 Travel 1.2.840.1 1.2.642.924 [id number] [facility] 00:00:00 00:00:00 43945.1.1 350.1.13.41 ity of 3.412.2.[place].6257[place] 084.8 MD [facility] 2021-05-25 2021-05-25 [facility] 1.2.840.1 [id number] [facility] 07:59:51 23:59:00 Encounter , Luis Miguel Shultz 81003.1.1 it y of 3.412.2.7 [place] .3.393727 MD [facility] 2021-05-25 2021-05-25 Outpatient [facility] [id number] 07:59:51 23:59:00 , LUIS MIGUEL rich 2021-05-25 2021-05-25 Travel 1.2.840.1 1.2.798.924 8160 [id number] [facility] 00:00:00 00:00:00 25743.1.1 350.1.13.41 ity of 3.412.2.7 [place]3.698 [place]3.222317 084.8 MD [facility] 2021-05-24 2021-05-24 [facility] Faraz Burns 1.2.840.1 [id number] [facility] 09:20:41 23:59:00 Encounter 24991.1.1 it y of 3.412.2.7 [place] .3.439220 MD [facility] 2021-05-24 2021-05-24 Outpatient FARAZ BURNS [facility] [id number] [place] 09:20:41 23:59:00 [facility] 2021-05-24 2021-05-24 Travel 1.2.840.1 1.2.949.466 2305 [id number] [facility] 00:00:00 00:00:00 08481.1.1 350.1.13.41 ity of 3.412.2.7 [place].3.698 [place]3.533763 084.8 MD [facility] 2021-05-23 2021-05-23 [facility] 1.2.840.1 [id number] 1 [id number] [facility] 06:23:00 23:59:00 Encounter , Luis Miguel Lexii 79230.1.1 it y of 3.412.2.7 [place] .3.280911 MD [facility] 2021-05-23 2021-05-23 Outpatient [facility] [id number] [place] 06:23:00 23:59:00 , LUIS MIGUEL rich 2021-05-23 2021-05-23 Travel 1.2.840.1 1.2.684.606 [id number] [id number] [facility] 00:00:00 00:00:00 58633.1.1 350.1.13.41 ity of 3.412.2.7 [place].3.698 [place] .3.077502 084.8 MD [facility] 2021-05-22 2021-05-22 [facility] 1.2.840.1 [id number] [facility] 07:26:16 23:59:00 Encounter Luis Miguel 95345.1.1 it y of 3.412.2.7 [place] .3.475978 MD [facility] 2021-05-22 2021-05-22 Outpatient [facility] [id number] 07:26:16 23:59:00 , LUIS MIGUEL rich 2021-05-22 2021-05-22 Travel 1.2.840.1 1.2.793.826 7074 [id number] [facility] 00:00:00 00:00:00 71086.1.1 350.1.13.41 ity of 3.412.2.7 [place]7.3.698 [place] .3.900367 084.8 MD [facility] 2021-05-21 2021-05-21 [facility] 1.2.840.1 [id number] 1 [id number] [facility] 19:11:21 23:59:00 Encounter Luis Miguel 16392.1.1 it y of 3.412.2.7 [place] .3.201596 MD Maurer8 [facility] 2021-05-21 2021-05-21 Outpatient [facility] [id number] [place] 19:11:21 23:59:00 , LUIS MIGUEL rich 2021-05-21 2021-05-21 Travel 1.2.840.1 1.2.847.195 [id number] [id number] [facility] 00:00:00 00:00:00 96147.1.1 350.1.13.41 ity of 3.412.2.7 [place].3.698 [place] .3.409123 084.8 MD [facility] 2021-05-18 2021-05-18 [facility] 1.2.840.1 [id number] [facility] 17:48:07 23:59:00 Encounter , Luis Miguel Shultz 20734.1.1 it y of 3.412.2.7 [place] .3.221102 MD [facility] 2021-05-18 2021-05-18 Outpatient [facility] MDA [id number] [place] 17:48:07 23:59:00 , LUIS MIGUEL rich 2021-05-18 2021-05-18 [facility] 1.2.840.1 1.2.406.692 [id number] [facility] 00:00:00 00:00:00 83098.1.1 350.1.13.41 ity of 3.412.2.7 [place]7.3.698 [place] .3.230645 084.8 MD Maurer8 [facility] 2021-05-17 2021-05-17 [facility] 1.2.840.1 [id number] 1 [id number] [facility] 14:30:10 23:59:00 Encounter , Luis Miguel Shultz 81751.1.1 it y of 3.412.2.7 [place] .3.795448 MD [facility] 2021-05-17 2021-05-17 Outpatient [facility] MDA [id number] 14:30:10 23:59:00 , LUIS MIGUEL rich 2021-05-17 2021-05-17 Faraz Naidu 1.2.840.1 [id number] [facility] 08:57:03 14:29:00 Encounter 90132.1.1 it y of 3.412.2.7 [place] .3.218883 MD [facility] 2021-05-17 2021-05-17 Outpatient FARAZ BURNS [facility] [id number] 08:57:03 14:29:00 Art rich 2021-05-17 2021-05-17 Orders Faraz Burns 1.2.840.1 [id number] [facility] 00:00:00 00:00:00 Only 67738.1.1 ity of 3.412.2.7 [place] .3.096496 MD [facility] 2021-05-17 2021-05-17 Travel 1.2.840.1 1.2.317.357 0768 [id number] [facility] 00:00:00 00:00:00 73530.1.1 350.1.13.41 ity of 3.412.2.7 [place]7.3.698 [place] .3.630454 084.8 MD [facility] 2021-05-16 2021-05-16 [facility] 1.2.840.1 [id number] Univers 18:05:53 23:59:00 Luis Miguel Porter 46608.1.1 it y of 3.412.2.7 [place] .3.757629 MD [facility] 2021-05-16 2021-05-16 [facility] 605 [id number] 18:05:53 23:59:00 LUIS MIGUEL 2021-05-16 2021-05-16 Travel 1.2.840.1 1.2.554.758 [id number] [facility] 00:00:00 00:00:00 07051.1.1 350.1.13.41 ity of 3.412.2.7 [place]7.3.698 [place] .3.690285 084.8 MD [facility] 2021-05-15 2021-05-15 [facility] 1.2.840.1 [id number] Univers 18:40:52 23:59:00 Luis Miguel Porter 19920.1.1 it y of 3.412.2.7 [place] .3.350957 MD [facility] 2021-05-15 2021-05-15 [facility] [id number] 18:40:52 23:59:00 , LUIS MIGUEL rich 2021-05-15 2021-05-15 Travel 1.2.840.1 1.2.682.571 [id number] [id number] [facility] 00:00:00 00:00:00 18422.1.1 350.1.13.41 ity of 3.412.2.7 [place]7.3.698 [place] .3.505140 084.8 [facility] 2021-05-15 2021-05-15 Orders Faraz Burns 1.2.840.1 [id number] [facility] 00:00:00 00:00:00 Only 89554.1.1 ity of 3.412.2.7 [place] .3.600896 MD [facility] 2021-05-14 2021-05-14 Hospital 1.2.840.1 [id number] [facility] 18:32:15 23:59:00 Encounter 89036.1.1 it y of 3.412.2.7 [place] .3.229418 MD Maurer8 [facility] 2021-05-14 2021-05-14 Outpatient [facility] MDA [id number] 18:32:15 23:59:00 Art rich 2021-05-14 2021-05-14 Travel 1.2.840.1 1.2.669.313 [id number] [id number] [facility] 00:00:00 00:00:00 15987.1.1 350.1.13.41 ity of 3.412.2.7 [place]7.3.698 [place] .3.369646 084.8 MD [facility] 2021-05-11 2021-05-11 [facility] 1.2.840.1 [id number] [facility] 16:09:34 23:59:00 Encounter 43011.1.1 it y of 3.412.2.7 [place] .3.981439 MD [facility] 2021-05-11 2021-05-11 Outpatient MDA MDA [id number] 16:09:34 23:59:00 Art layla 2021-05-11 2021-05-11 Travel 1.2.840.1 1.2.239.521 [id number] [facility] 00:00:00 00:00:00 43420.1.1 350.1.13.41 ity of 3.412.2.7 2.[place]7.3.698 [place]3.117380 084.8 .8 [facility] 2021-05-10 2021-05-10 [facility] 1.2.840.1 [id number] [facility] 13:16:10 23:59:00 Encounter 64018.1.1 it y of 3.412.2.7 [place] .3.214102 MD Maurer8 [facility] 2021-05-10 2021-05-10 Outpatient MDA MDA [id number] 13:16:10 23:59:00 Art cox monett 2021-05-10 2021-05-10 [facility] Faraz Burns 1.2.840.1 [id number] [facility] 10:34:34 13:15:00 Encounter 96403.1.1 it y of 3.412.2.7 [place] .3.688470 MD Maurer8 [facility] 2021-05-10 2021-05-10 Outpatient FARAZ BURNS [facility] [id number] [place] 10:34:34 13:15:00 Art cox monett 2021-05-10 2021-05-10 [facility] Faraz Burns 1.2.840.1 [id number] [facility] 00:00:00 00:00:00 Only 76844.1.1 ity of 3.412.2.7 [place] .3.689763 MD Maurer8 [facility] 2021-05-10 2021-05-10 Travel 1.2.840.1 1.2.308.916 [id number] [facility] 00:00:00 00:00:00 68335.1.1 350.1.13.41 ity of 3.412.2.7 2.[place]7.3.698 [place] .3.910046 084.8 MD [facility] 2021-05-09 2021-05-09 [facility] 1.2.840.1 [id number] [facility] 15:26:22 23:59:00 Encounter 06688.1.1 it y of 3.412.2.7 [place] .3.244367 MD Maurer8 [facility] 2021-05-09 2021-05-09 Outpatient [facility] [id number] [place] 15:26:22 23:59:00 [facility] 2021-05-09 2021-05-09 [facility] Benson Burnsy 1.2.840.1 [id number] [facility] 15:26:10 23:59:00 Encounter 88551.1.1 it y of 3.412.2.7 [place] .3.024568 MD Maurer8 [facility] 2021-05-09 2021-05-09 Outpatient [facility] [id number] [place] 15:26:10 23:59:00 [facility] 2021-05-09 2021-05-09 Documentat Faraz Burns 1.2.840.1 [id number] Univers 00:00:00 00:00:00 ion 80889.1.1 ity of 3.412.2.7 [place] .3.687986 MD [facility] 2021-05-09 2021-05-09 [facility] 1.2.840.1 1.2.320.307 [id number] Univers 00:00:00 00:00:00 55574.1.1 350.1.13.41 ity of 3.412.2.7 2.2[place]7.3.698 [place] .3.119538 084.8 MD [facility] 2021-05-08 2021-05-08 [facility] 1.2.840.1 [id number] Univers 10:43:05 23:59:00 Encounter 96588.1.1 it y of 3.412.2.7 [place] .3.184041 .8 [facility] 2021-05-08 2021-05-08 Outpatient [facility] MDA [id number] [place] 10:43:05 23:59:00 [facility] 2021-05-08 2021-05-08 [facility] Faraz Burns 1.2.840.1 [id number] [facility] 09:28:04 10:42:00 Encounter 51072.1.1 it y of 3.412.2.7 [place] .3.960260 MD Maurer8 [facility] 2021-05-08 2021-05-08 Outpatient [facility] MDA [id number] [place] 09:28:04 10:42:00 [facility] 2021-05-08 2021-05-08 Travel 1.2.840.1 1.2.785.125 [id number] [id number] [facility] 00:00:00 00:00:00 62534.1.1 350.1.13.41 ity of 3.412.2.7 [place]7.3.698 [place] .3.081941 084.8 .8 [facility] 2021-05-07 2021-05-07 [facility] 1.2.840.1 [id number] [facility] 19:22:44 23:59:00 Encounter 04429.1.1 it y of 3.412.2.7 [place] .3.510067 .8 [facility] 2021-05-07 2021-05-07 Outpatient [facility] MDA [id number] [place] 19:22:44 23:59:00 [facility] 2021-05-07 2021-05-07 Travel 1.2.840.1 1.2.421.760 [id number] [id number] [facility] 00:00:00 00:00:00 73515.1.1 350.1.13.41 ity of 3.412.2.7 2.2[place]7.3.698 [place] .3.080413 084.8 MD [facility] 2021-05-04 2021-05-04 [facility] 1.2.840.1 [id number] [facility] 18:05:16 23:59:00 Encounter 93136.1.1 it y of 3.412.2.7 [place] .3.885401 MD [facility] 2021-05-04 2021-05-04 Outpatient [facility] [id number] [place] 18:05:16 23:59:00 [facility] 2021-05-04 2021-05-04 Travel 1.2.840.1 1.2.981.522 [id number] [id number] [facility] 00:00:00 00:00:00 43784.1.1 350.1.13.41 ity of 3.412.2.7 2.2.7.3.698 [place] .3.929585 084.8 MD [facility] 2021-05-03 2021-05-03 [facility] 1.2.840.1 [id number] Univers 19:23:00 23:59:00 Encounter 92468.1.1 it y of 3.412.2.7 [place] .3.893270 MD [facility] 2021-05-03 2021-05-03 Outpatient [facility] [id number] [place] 19:23:00 23:59:00 [facility] 2021-05-03 2021-05-03 Nutrition Sofi, 1.2.840.1 [id number] [facility] 11:30:00 12:00:00 Mayela 55501.1.1 ity of 3.412.2.7 [place] .3.781692 MD [facility] 2021-05-03 2021-05-03 Travel 1.2.840.1 1.2.495.553 [id number] [id number] [facility] 00:00:00 00:00:00 12302.1.1 350.1.13.41 ity of 3.412.2.7 [place]7.3.698 [place] .3.657231 084.8 MD [facility] 2021-05-03 2021-05-03 Telephone Lizeth 1.2.840.1 [id number] Univers 00:00:00 00:00:00 Chikis 39752.1.1 ity 3.412.2.7 [facility]3.109512 MD .8 Jose rich [facility] 2021-05-02 2021-05-02 Outpatient EL MDA MDA [id number] MD 15:33:13 23:59:00 Art o layla 2021-05-02 2021-05-02 Outpatient EL FARAZ BURNS MDA MDA [id number] 13:53:20 15:32:00 Art o layla 2021-05-02 2021-05-02 Outpatient EL MDA MDA [id number] MD 11:22:03 13:52:00 Art o layla 2021-05-02 2021-05-02 Outpatient EL CARLO MDA MDA [id number] MD 07:36:18 11:21:00 MIYA Art o layla 2021-04-30 2021-04-30 Outpatient EL MDA MDA [id number] MD 06:00:00 23:59:00 Art o layla 2021-04-12 2021-04-12 Outpatient EL FARAZ BURNS MDA MDA [id number] 09:00:56 23:59:00 Art o layla 2021-04-12 2021-04-12 Outpatient EL JAYSON, MDA MDA [id number] MD 07:38:49 08:59:00 JUAN LUIS Cordova o layla 2021-04-11 2021-04-11 Outpatient EL MDA MDA [id number] 05:58:55 23:59:00 Art o layla 2021-04-06 2021-04-06 Outpatient EL JAYSON, MDA MDA [id number] MD 08:40:49 23:59:00 JUAN LUIS rich 2021-04-05 2021-04-05 Outpatient EL FARAZ BURNS MDA MDA [id number] 08:00:00 23:59:00 Art o layla 2021-04-05 2021-04-05 Outpatient EL DIEGO, MDA MDA [id number] 09:38:58 09:52:27 ADAMS Decker so layla 2021-04-05 2021-04-05 Outpatient EL FARAZ BURNS MDA MDA [id number] 07:31:00 07:59:00 Art rich 2021-03-22 2021-03-22 Outpatient EL JAYSON, MDA MDA [id number] 10:46:14 23:59:00 JUAN LUIS rich 2021-03-19 2021-03-19 [facility] MDA [id number] 11:20:01 11:24:39 , LUIS MIGUEL rich 2021-03-12 2021-03-12 [facility] MDA [id number] 10:15:00 23:59:00 , LUIS MIGUEL rich 2021-03-12 2021-03-12 Outpatient EL JAYSON, MDA MDA [id number] 07:59:25 10:14:00 JUAN LUIS rich 2021-02-16 2021-02-17 [facility] MDA HN Surgery [id number] 10:32:00 10:04:00 , LUIS MIGUEL rich 2021-02-14 2021-02-14 Outpatient EL KAYCEE, MDA MDA [id number] 12:40:57 23:59:00 KHLOE rich 2021-02-14 2021-02-14 Outpatient EL SANCHEZ, MDA MDA [id number] 11:14:11 16:19:35 NARESH rich 2021-02-14 2021-02-14 [facility] MDA MDA [id number] 11:13:49 16:19:28 , LUIS MIGUEL rich 2021-02-14 2021-02-14 Outpatient EL SANCHEZ, MDA MDA [id number] 15:40:49 15:52:59 NARESH rich 2021-02-14 2021-02-14 Outpatient EL KAYCEE, MDA MDA [id number] 12:38:10 12:39:00 KHLOE rich 2021-02-14 2021-02-14 Outpatient EL LILIANA, MDA MDA [id number] MD 08:31:43 12:37:00 REJI rich 2021-02-06 2021-02-06 Outpatient EL SANCHEZ, MDA MDA [id number] 07:29:09 23:59:00 NARESH rich 2021-02-06 2021-02-06 Outpatient DAPHNE LY MDA MDA [id number] 08:01:49 09:54:33 , LUIS MIGUEL rich 2021-02-06 2021-02-06 Outpatient DAPHNE BRADFORD MDA MDA [id number] MD 05:57:30 07:28:00 NARESH Artantoinette rich 2020-03-14 2020-03-14 Outpatient DAPHNE BRADFORD MDA MDA [id number] 00:00:00 00:00:00 NARESH Artantoinette rich 2020-03-14 2020-03-14 Outpatient DAPHNE BRADFORD MDA MDA [id number] 00:00:00 00:00:00 NARESH Art rich 2020-03-14 2020-03-14 Outpatient DAPHNE LY MDA MDA [id number] MD 00:00:00 00:00:00 , LUIS MIGUEL rich Results Test Description Test Time Test Comments Results Result Comments Source POC Creatinine 2021-12-07 14:52:45 Test Item Value Reference Range Interpretation Comme nts POC Crea (test code = 0.9 mg/dL 0.6-1.3 Medica tions, especially 21971-3) hydroxyurea or supplements, such as ascorba te, can interfere with test results causing a false ly and significantly h igher result than expected. If a problem is suspected wi th a patient's resul t, a sample should be sent to the laboratory for confirmatory testing. Method description: The i-STAT is a n analyzer used for in vit ro quantification of various analytes in [facility] le blood. The device uses a s [...] See_Comment Mattie l eGFR >= 60 = 96672-5) mL/min/1.73 m2 The eGFR is calculated usin [...] mild decrease in GFR 60-893a Mild to moderate dec rease in GFR 45-593b Moderat e to severe decrease in GFR 30-444 Severe decrease in GFR 15-295 Kidney f ailure <15 (or dialysis) [ Automated message] The sy stem which generated this result transmitted ref erence range: >=60 mL/min/1.7 3 m2. The reference range was not used to interpret is result as normal/abnormal . POC eGFR-IMELDA (test code 61 See_Comment Norm al eGFR >= 60 = 30019-7) mL/min/1.73 m2 The eGFR is calculated usin [...] mild decrease in GFR 60-893a Mild to moderate dec rease in GFR 45-593b Moderat e to severe decrease in GFR 30-444 Severe decrease in GFR 15-295 Kidney f ailure <15 (or dialysis) [ Automated message] The sy stem which generated this result transmitted ref erence range: >=60 mL/min/1.7 3 m2. The reference range was not used to interpret is result as normal/abnormal . POC Clean Dev (test Yes code = 6672) Performing Lab (test [facility] code = 96445) [facility], [address], [place] [address]; Point of Care L ab Director: Latosha Hurley [facility] (PAUL-CoV-2) PCR Cbskznudtpci6305-52-21 11:28:59 Test Item Value Reference Interpretation Comments Range COVID19 SARS Pre-Radiation Therapy Indication (test code = 65625) COVID19 SARS Result Not Detected Not Detected (test code = 13940-3) COVID19 SARS SARS-CoV-2 NOT Detected. Interpretation (test Reference Range: Not code = 80679) Detected Methodology: The Reinoso RealTime SARS-CoV-2 assay is a qualitative real-time reverse costumed character entertainer polymerase chain reaction (legal support assistant-PCR) test to detect RNA from SARS-CoV-2 in nasal, nasopharyngeal and oropharyngeal swabs from patients with signs and symptoms of infection who are suspected of COVID-19 by their health care provider. The Reinoso RealTime SARS-CoV-2 performed on the Neuronetrix000 System is a dual target assay with [...] CLIA-certified, high-complexity Molecular Diagnostics Laboratory (MDL) at [facility] under the Food and Drug Administration (FDA) s Emergency Use Authorization. Factsheet for patients: https://www.[facility].org/ AbbottFactSheetPatientsFact sheet for healthcare providers: https://www.[facility].org/ AbbottFactSheetHCP Test performed by:[facility] Molecular Diagnostic [address] [place], [place] [address] [place], [place] [address]Pathology Surgical Interpretation 2021-11-15 03:37:11 Test Item Value Reference Range Interpretation Comments Submitted Clinical History w3xqyWPqUEVlw3jzTMH (test code = 62738) mbGFuZzEwMzNcZnRuYm pcdWMxIHtccnRmMVxzc 5GkU1OfFgEhGTakljVg XGRlZmxhbmcxMDMzXGZ 0bmJqXHVjMVxkZWZmMH ygLd2laFBvkClaTnVoC REks9zverMQpissiGs9 p4giLMZdIwI0rTKfVWq nU0ztqaCgzGGiGKIuKF j4oD13IZXqoG7uhCOyL HwmctOkWbD9MMauVQTj TxM2VFLkvOCwSBHqH9a yZWQwXGdyZWVuMFxibH OaNYL8cEtox7W7iEUqq GVldHtcZjBcZnMyMiBO o9FrTJf6cAybQ9PpRWS nZeE0oRDmVLPiXFkxAH XdJSKsvmF1dO85OGmdl gI6zAOjf0Flu46sd053 lU6xoJEvNXM2KITeIFF qpDAuWYKfYDZ4PCJxbY QiQ9bkMRQpOX9dmrceG TzeANyjFESchBB9JIOd nARaK8OjZMAlGDeaWPD cfyb8ZsRjWz7uyXSxfL ftVPtfy4tpz0cxlCRiB ga0BWOpJiHzHrkbEEbd a1Zfs2bvDGKfsn3gHIG 1rZOcdYpfs1K5lJPmQS WfvYQywoZnUTKjCiM3I YdoDS6ixu26IFVvZWQ4 ri0ksPPgxRjxkpRpwZT mHLzxT6FoLRSai489EF McW2IlZHTkg4G4mgAhU fCvBKJugSG7mdD3XJFr DUm4mYSbzcV6fjGsyQG nI4wpdM9cPUSbIG3hhj mye4yoMZspQBsrQHYwl SR9jzV3UMKrhGLjN6Gz uU6xPODuLIcxEKEjqrs 6GdVjWv5ymAXuiXmcKU xzYmtwYWdlXHBnbmNvb nRccGduZGVjXHBsYWlu XHBsYWluXGYwXGZzMjR pnQlykXoaoR0uFrBdLv NlIWibVJ4iUFXoC0hyb PPaDYMzYYNeN0wbWdKg cC7lrBzxCBjzayXyEI2 vdBQxkBAtlGJapO3liP VhZCBhbmQgbmVjayBse A2qoNCzz5OaMSwUWdao DK5vhMOhDTDpcCFez8J rVPLroOddV9GgG9pqu4 9bHE1wIMCjgda9XBArR zAyLjldXHBsYWluXGYx XGZzMjJcbGFuZzEwMzN caGljaFxmMVxkYmNoXG LeZJgjO9kwJrRjPqKjF twdCHY6mD== Diagnosis (test code = 34) u5fmqHWlFELvcSE8JzI oQWCxd9fnj9QhtBEqgI UwGMxdwWLexhKxik93m AL1xK26EN4zGPDiTuN4 PTGanjF7Pmz2PYZpSDZ ydFNnZ047f4hot0xxve OzoGK5PQTmNMSlP5QtL N0rXEOwuWSfB51nfSJf OUR2LADzMJCfaXPtVID uDPA5VSHipPOtC3xcPE KdLZ9xtafmBEgvUQigR NHchGR0DCPycVShM5Sd BYYuULknQXMukix7YvM zAt5dsNKbzGyqKEzbGG JkXHBsYWluXGZzMjBcY 2HgMCU3NU0zQ3uvFUYu V0u8TZZjtXgluUZuWCA rVXMvp6IjW3Rbr31izN D9LLwmQvF3FGGxxxafe HczIPlxeT04AtDsN8Ae CK7WBCMQRPZYMFRpB4Z OKY2KGIEoB6HDM5jRQ4 8ONTeFXt6QFijDEzXDN A6WBI7DMQrgZdCUAb5Z QVNDVUxBUiBBTkQgQUR XSL8IBUQVFTXGQLTZOL Xtmog3HVQfSEG1DGI1E HMzCkB3yH9jwqQfyYra OiAyIGNtLlxwYXIgVHd iUAr5yKQsOX5vTRJiNC PpINcaoWy3HHUxy3Xlg MEsf1BpyZEeJFEbOWJk d72cRT76XRHfhkhpZPV kXHBhciBNRFcvRkFTMl xwYXJccGFyfQ== Comment (test code = 9835) x1gntAHyHNDjlCB0JcS sHOBdb3zzc0PfnZPzsK IqXAhllUNrlwRruk19b IV9mM67WX5bZSKcHhF1 LLWuslV7Fhz7STSvRAJ huQKfK804z8cvg0kblu ZhdQK8oCbyCXFrlsjzL bD1XLabRZKiamuwXPx2 LQzqLEMsnFZ1HOEsfXG yV1TcQWQjUK9zhga1GN C9LVwlHNBeTcE5CPEfi DMvLCIiuItkVCwog314 SPE1CuPwWTSvnjXdnFo wpX8jKgByGOTEjWShtF KnpwTuERQvKXfyj2Qmd SByZXByZXNlbnRzIGEg S20ykKimjQUvmRImAVH aGAQbWMQulB6npMXyp0 JdTTdkpEbrL0Yad7NjL Rm7yuLuu0ZvnBSchKSo huBso26tyA2hcOVydJ2 mHOWxRLE5ecRtpF9wDX 8xaiPoZBS1wcAyJRLrX FxwYXJ9 Gross Description (test z6tlhOOsRRVhnFXIRAt code = [id number]) wMVxhbnNpXHNwbHRwZ3 EusfyfXApkPZ7jAK0oq FnccQSqgMStWE7DVVKg ZmYxXHBhcGVydzEyMjQ lNHKfiGTvwEL0KQSzCU 1hcmdsMTgwMFxtYXJnc dH5BRBejOMxP1LjBNHn TZ5smuaxWOQ1OVjtmV6 kydMVKtbjPq0fpTRdkV tcZjFcZmNoYXJzZXQwX FVoeZpiAPKyIOe1tN7J YrdaU84pc2E1Bcs2FGC sDLTdU0CuZA1uEBNvdU SjY16AIfakOJG0VZXWS mjpIJOtUP0Ui9izIVJs dRGbQWA4GEluqGYvWQH wGIFaRUt9TQSaCOtnsG TnLR8cbYtuEwfgsJrot 2VjdCBcXGlkIDUxMDAy PGxmCJCjGW2QBzYrTYU 3XOFvEARpADu9YFl2SY 4IFuBnVQPuVCR6GVD2O GZmRIx8ZZecWC6WIRTc DvO2HpN6OnYkZDQmGPg kXWi9HDRoXKgcGHUecP FsIFxcZnMgMTAgXFxmY sBrTOCmXPaineM4JUCm YWluXGJcZnMyMCBBOlx mRSVlVLhijPvxwU4aAG BnY51eg3AEu0UaGI2CY Os4ujKvprfhpD2tLWDr nxYqWYcptOSaZ6frXui jZjFcZnMyMCBOZWNrLC ByaWdodCwgcmlnaHQgb jOdasQzdDZtJDT0uU2d BRmqxkMkKSYyEQ9gv3D yGF3fhVTduUYjNQ80QW egQmWvNdcdDBSgH32mt 9oobJOmw5RjKP1wfC4c ituclwFfHPZik0W7wC4 fAK6hPXfsdVdupb87gZ w1QSDkuTAvd5BotMX6F IPdo5P4EEJawlUov41v kXwuMS6lpH32OO8rXJ7 7y9DcEWUxEK67WJjzZz 9yOOxgHK98RFDyHG5lb GluZSBcdGFiIFRoZSBz qHCtxZ7hkoYafwYoMGV 4mX0wUKVxhM7mdxV8AK GxFQMlkM8xm1aynWSbv LVpNEC6YP0jwQxpzsKy hN2ufTEeo6UpnrRxjiS bF2txCuSchc1lZEZvTQ 1hUMVbBYphWXszZOL5U GR9CUUajWOkz8mskcS9 lLW4oyEwZkRfaHWmOnq qqRKvOtPeM65dVjMoMD shBVophmmjl5AwvCihe Fgtep3qYFXxyuNzOQS8 zA8zZARihG6kvvZ2UTE fXWMtKkibtPZ8gWe5WJ 70HH3vV3S7IFA1rpHaR 9Utl6l3cHXmWYVmucUk UZpxB0L5bWZ2HMMtglE sgD1ikkiuZLSlqFXdaO NptF76adHyh0ElivUoI WZbjs77ftMgaAlfCVJa kMsuOtZiGMweSKB5kQ5 rRGvxxOtzusV9oTBvcA vtkIbmzl1cLNPjuYJzD XJzIHRvIGJlIGluZmls dHJhdGluZyBpbnRvIHR nDVDdmTUqi9RwMNieXi MgZAmcj8IuZWJsj0A0O H6qgRYlNE7BJBIsQdTJ FPTBVG9CIDNNYDS6GCR xYUKjDORhj4FyOcmyTM z9uIBnZE1nLNI9QZOfW KRjPUAwpU1bt4agdNTo lNmbrNhcxo4dSBYbgCC pP1GaNKWzngGjKZSkNX Loc6TciBGmGxVFYN85I CByZXByZXNlbnRhdGl2 CDJuMUY4gC2ukeMaaz6 rEEqwkzsmt2QmI3Gox5 XycHHku0CgdJp3LQOag L1pqAXcs3AgFuSoSENs r9DmM3P2OWSkEYhep0f hJDPzXCsqf1PeODqSYR KSVM0UKC5wlGE9KBnJL 0POH5cPsRDeTEZ8yRR0 VSMRDwresOI9eFH6nL4 4BGSmITZoeQXaOOjxX6 66ZKM3BCIgIXnqh9wxV ZShQPifp1MdARsUSSSL YN2WYR1uoRO6PYlYW0G ORHwyMTAxNnwxfFVTRV Q6RLrhlHxhfRr2w3mqj CRrr1l6CFwfMIU1cCme bGFpblxsdHJjaFxmczI pGM5WIPHjpDCKILP2UX 6jLQd5WVqtKPBeL2PjY 3RlbmRccGFyXHBhcmRc z8tmJBT7DVPxeAAfdRN nDfGxZnbxIVW0GUYhQK qeSA2QXDPsPIQ8WDahk T26nQJaIU1MJNTcPQgg OYQfQPYsqiG3ICPcqCA cQVN5YR9dbDudhSRcvj cwxjX9XV5TpO== Disclaimer (test code = q3lktXVuCPRexJNjMpT 9844) xAFDpICXwu1zwUBRylH FuZzEwMzNcZnRuYmpcd NQhHMEtDvXbj7qoh779 aCXum4acALMtJvG4zAE tXANcqZNmR659AEQbTQ jlv9kxe4HkBBWexEVsa 8Q9KJOHmlbkqIg0aQup E66lk7X6RvmbN8vyOSN rZGZxJ1LfRE3rUHOzHj l5EEH3HUZ7PZAaIDRvQ 4FhLE4yWTNfcWTkTSn0 u5uqnIfpCDAwGAM7i5n dVHlbjiYbWV2pvb7rlB e1p7yjkmAqLGMfCXXmo XEGFSEoW7UzdRoeNg6z dLt1wHdfUgsiWUZ2Jle 7AH7dgh55fah8yCzmYU LlphaoYjS8KGzuOYCgr siiLXx2LXinWQTykQZ6 ZJIgmZWjR9VkGPPmPR8 flue1LTH1ZFcvSCKqPt D0YSEfySTdENKnjYmrT Swwo271ETW9GxXzWJ0k N2Pzj5P6gN0znOBdUKV qwDEqIsZrSQIdzi6icW IeQTzdy6RrDHR1dtK2i BGcqEDhYDFiIZ56Ihyn n0LvFhmqUTF6JKDhszS kh1Ily7mhDnEihhUkM0 joB6ZrNBSyEBEkKWAgN nGeqwJfa8Idn6NelCNq eHn5m7lgCVLvMFYdcKv my5anZCH4NHOdR4Q0hD Zlu8ggWLtqWHWxsWD2i hM6RIBlfUXwJ6YcrK2i UGZjLH9kzqd0g9khLQB 0QHsjWNRmOwW7fqZ2CQ BcaGVhZGVyeTcyMFxmb 870MSQ3TbImYMYuw3Wd I0UmlGbxS37tzQxlO88 jDYGktCdlqK1zsWjrnI 5cZjBcZnMyNFxxbFxwb FOhiimiDDgjzpR7XQya agatGVGhWRcbJ9tgPqG rNKOyuRyrTSfyj2JnKO VaKCZqJfldvgP9VCBBu 37yLBOot0GzRBYzpD7h pEGdWHaeucAiqTV8PVk hdmUgYmVlbiBkZXZlbG 6vPMZjXM1dHHOwjnCdn y9noiFvMOPzQXHmH8Ek cmlzdGljcyBkZXRlcm1 kizKpTUC4GWLOWY9UCJ VyBXRny00pNZFejXjxs B2kcLPxyuIpLLFzf3Bs eD9bcELTTWKaE3loIO5 dBOulr9DzaVZwmMAwtU T1SPYhl8CdZyGdslSxn HKszLYyL3AniKhwY4pe MKUmVWXtnoClzFBdq4F zCQGynTB0pSEyQF5NVc TPg47aFFRvZISTquCsI NQnsYjruXP1nhB0bZ6g LiBJZiBhcHBsaWNhYmx kFIQfi886fa8qlqA8XL KiYHEwtursj7MtKXLjJ OZytJ96TURwTYRylb7v fypspKNecqAlT2Bodpi 2sF5iJQFpIVkkZREsOO ZzMjJcbGFuZzEwMzNca GljaFxmMVxkYmNoXGYx XKadN0jhPiQdOrZsLwu wYXJ9 [facility] CenterTMP Interpretation Antibody Screen Kxjvfakq2740-27-71 21:59:37 Test Item Value Reference Range Interpretation Comments TMP Auto Neg At the present ABSC Interp time, patient (test code = plasma shows no ____STAN WALTON 7535) evidence of RBC MD AMRIT, P hD - alloantibodies. [id number] d by: Lexii LINDSEY, PhD - [id number] D ate/Time: 11.09.2021 16:5 9 PM CDT Transcribed Antonio e/Time: 11.09.2021 16:5 9 PM CDTElectronical ly Signed By: STAN MARCUS MD, PhD - [id number] on 11.09.2021 1 6:59 PM [facility] CenterABORh2022-04-22 20:06:14 Test Item Value Reference Range Interpretation Comments ABORh. (test code = 882-1) O POS [facility] CenterClot Expiration Aaxm7936-03-21 20:06:13 Test Item Value Reference Range Interpretation Comments T & S Expiration (test code = 11/12/2021 5318) [facility] CenterAntibody Ccgivz9246-00-69 20:06:04 Test Item Value Reference Range Interpretation Comments ABSC. (test code = 890-4) Negative ABSC [facility] CenterPOC Glucose [id number] 16:15:26 Test Item Value Reference Interpretation Comments Range POC Glucose (test 104 mg/dL 70-99 H MD Guerrero dCapillary code = 74126-9) blood sample s, e.g. obtained by fingerstick, [...] Capillary code = 9554) Performing Lab (test [facility] Main Main [facility] code = 20707) [facility] MD [facility], [address] [place] [address] [phone]; Finish Carpenter: Mikayla Cao MD Lab Interpretation Abnormal (test code = 15400-8) [facility] CenterElectrolyte Mgpki3481-36-46 21:17:20 Test Item Value Reference Range Interpretation Comments Sodium Lvl (test code = 138 See_Comment [Au tomated message] The 2951-2) system which ge nerated this result tra [...] to interpret this result as normal/abnormal . [facility] CenterGlucose, Yfbxuw6411-33-97 21:17:19 Test Item Value Reference Range Interpretation Comments Glucose Random (test 105 mg/dL 70-199 Effecti ve 02/14/16, the code = 2345-7) glucose refer ence intervals have been updated based o n [place] [employer] chuy delines (Standards of M edical Care in Diabete s 2016. Diabetes Care 2 016; 39: S13-S22).Fastin g blood glucose:Normal: 70-99 mg/dLImpaired f asting glucose (increa sed risk for diabetes or pre-diabetes): 100-125 mg/dLDiabetes m ellitus: >/=126 mg/dL Ra ndom blood glucose:N ormal: 70-199 mg/dLNot e: Random glucose >100 mg /dL is associated with increased risk for diabetes [facility] CenterGlomerular Filtration Rate 2021-11-06 21:17:13 Test Item Value Reference Range Interpretation Comments eGFR-AA (test code = 65 See_Comment Normal eGFR: >= 60 78410-5) mL/min/1.73 m2N ote: The eGFR is huey culated using the CKD-E PI equation. The e GFR declines with a ge. eGFR <60 mL/min /1.73 m2 is considere d as "decreased". Th is equation should only be used for pat ients 18 and older. According to th e National Kidney Foundation's Ki ludaey Disease Outcome Quality Initiat mindy (KDOQI) classif ication and 2012 Kidney Disease Improvi ng Global Outcomes (KDIGO) Clinica l Practice Guidel ine, the stage of CK D should be categ orized based on estima bertha GFR. Stage Desc ription GFR mL/min/1.73 m21 Normal or high GFR >=902 Mildly de creased GFR 60-893a Mil dly to moderately decr eased GFR 45-593b Mod erately to severely dec reased GFR 30-444 Marlys rely decreased GFR 1 5-295 Kidney failure <15 [Automated mess age] The system [employer] generated this result transmitted ref erence range: >=60 mL/min/1.73 sq. m. The reference range was not used to int erpret this result as normal/abnormal . eGFR-IMELDA (test code = 56 See_Comment L Normal eGFR: >= 60 32507-5) mL/min/1.73 m2N ote: The eGFR is huey [...] estima bertha GFR. Stage Desc ription GFR mL/min/1.73 m21 Normal or high GFR >=902 Mildly de creased GFR 60-893a Mi ldly to moderately decr eased GFR 45-593b Mod erately to severely dec reased GFR 30-444 Marlys rely decreased GFR 1 5-295 Kidney failure <15 [Automated mess age] The system [employer] generated this result transmitted ref erence range: >=60 mL/min/1.73 sq. m. The reference range was not used to int erpret this result as normal/abnormal . Lab Interpretation Abnormal (test code = 28326-7) [facility] Cancer Gleason.Serum Hwczysluug6771-65-28 21:17:12 Test Item Value Reference Range Interpretation Comments Creatinine (test code = 2160-0) 0.97 mg/dL 0.51-0.95 H Lab Interpretation (test code = Abnormal 68669-3) [facility] CenterBUN2022-04-19 21:17:11 Test Item Value Reference Range Interpretation Comments BUN (test code = 3094-0) 21 mg/dL 6-23 [facility] CenterHemoglobin [id number] 20:57:54 Test Item Value Reference Range Interpretation Comments A1C (test code = 5.6 % 4.3-5.6 HbA1c value s >=6.5% are 4548-4) diagnostic of d iabetes mellitus.Diagno sis should be confirmed by repeat testing.Therape utic Action suggested: >8.0 % HbA1c; Goal oftherapy: <7.0% HbA1c [facility] CenterDifferential2022-04-19 20:35:36 Test Item Value Reference Range Interpretation Comments Neutrophil % (test code 60.6 % 42.0-66.0 = 770-8) Lymphocyte % (test code 30.6 % 24.0-44.0 = 736-9) Monocyte % (test code = 6.3 % 2.0-7.0 5905-5) Eosinophil % (test code 1.8 % 1.0-4.0 = 713-8) Basophil % (test code = 0.5 % 0.0-1.0 23133-8) IGRE % (test code = 0.2 % 0.0-0.4 IGRE % c ount includes 64304-1) Metamyelocytes, Myelocytes, and Promyelocytes. Neutrophil Abs (test 5.03 K/uL 1.70-7.30 code = 751-8) Lymphocyte Abs (test 2.54 K/uL 1.00-4.80 code = 731-0) Monocyte Abs (test code 0.52 K/uL 0.08-0.70 = 742-7) Eosinophil Abs (test 0.15 K/uL 0.04-0.40 code = 711-2) Basophil Abs (test code 0.04 K/uL 0.00-0.10 = 704-7) IG Abs (test code = 0.02 K/uL 0.00-0.04 69962-5) [facility].SXA5030-63-28 20:35:31 Test Item Value Reference Range Interpretation Comments WBC (test code = 8.3 K/uL 4.0-11.0 6690-2) RBC (test code = 4.57 See_Comment [Automated message] The 789-8) system which MEEP nerated this result tra nsmitted reference range : 4.00 - 5.50 M/uL. The reference range was not u sed to interpret this result as normal/abnormal . Hgb (test code = 13.4 See_Comment [Automated message] The 718-7) system which nerated this result tra nsmitted reference range : 12.0 - 16.0 gm/dL. The reference range was not u sed to interpret this result as normal/abnormal . Hct (test code = 41.1 % 37.0-47.0 4544-3) MCV (test code = 90 fL 82-98 787-2) MCH (test code = 29.3 pg 27.0-31.0 785-6) MCHC (test code = 32.6 See_Comment [Automate d message] The 786-4) system which nerated this result tra nsmitted reference range : 31.0 - 36.0 gm/dL. The reference range was not u sed to interpret this result as normal/abnormal . RDW-SD (test code = 44.6 fL 35.1-46.3 95932-1) RDW-CV (test code = 13.6 % 12.0-15.5 788-0) Platelet count (test 282 K/uL 140-440 code = 777-3) MPV (test code = 9.8 fL 4.0-10.4 40078-0) INRBC (test code = 0.0 % See_Comment The INRBC (instrument 99515-4) NRBC) value ref lects the enumerationof n ucleated red blood cells contained in a 200uL samp leof whole blood analyzed by the instrument. Thi s value maydiffer from the NRBC value reported in a manual differen tial,which is based on a 1 00 cell differential. [ Automated message] The [employer] which generated this result transmitted ref erence range: <=0.0. T he reference range was not used to interpr et this result as normal/abnormal . [facility] Cancer GleasonCytology Image-Guided FNA Okfwdfxbuapzcm1554-39-74 16:17:12 Test Item Value Reference Range Interpretation Comments Gross Description (test w1rylIQwIJNzaVQXTBpi code = 5825755864) AIgfwbIaPPXtfXZuN6Ry ndafMQrlCO2yCM3rgAtn vXRmoLZtHA6WHFAoCrKe XHBhcGVydzEyMjQwXHBh kCKptUN9VYTgPX9omyru WAgiPMvcYLWbthV3UDJp qIMzL2WdZUQuNM9ctlwb EJB0GVvwhL7cnjFEWfzm Rb3gaIRhbJkwJiCzNrPi YXJzZXQwXGZuaWwgQXJp QKk7qJ8KLxjoM56xz1Z4 Bql3TSOfHERrJ2UnIB4y UXKwpFBgG45WBzvbPGI9 YIZBVtjlFZTdVC7En0ew JAJezCTuPZH5RYnocMKi QVVgFOOySRi8NQIzNFcp nNMpNU8uiKghRawkwQxp m7SsbVNaXTqjGRXhNGVf MCuqECMtJH0GPjHsKHEm XHw1FUEbUYf4LJu2MQ1P IeAxMDJbTFM7RpOgTeUk UIc8RAmrLV9VXQWaELbk OTcwNTAgNTUzMjYgXFx0 IDIgXFxmIEFyaWFsIFxc ZnMgMTAgXFxmYiBcXGZs VTlnmvG2XKLdVBgdWIRq ZnMyMCBBOlxwYXIgDQpc kYuzlH2wECZeQ76aj2VE t4VoZZ9HHNk1hqQlexgu oH4qSTMrheKxDEmwrRVf Z8fvG7KxZMRzKrKgE4So E8vxYA8yISKon2P4gyLu OlxwYXIgDQoyIERpZmYg QTWyykyvOVMNCIAwF2Ef uS1dC3zfMTUwGRKfeyQM OeOdEM6rVEKssJYpxDMz oXexBcdcjBI7UTnfFehg mH1xmUFKBOQKXorZJsuc iiXuKW5PYLLMGtYBJO22 XcL9ReQ9QBtdgJivOsdc fhJkvCXnAiKZbT4itEgu mQZwfDHirY33BOqsNDNl z7XcA9Dhe1unhGOnHRmk ZjmjzDFowzB0OCbKJEMW LIpZWmBtUP5qXLjACRLN RUdJTnwyfXtcZmxkcnNs fUTaPwLLvO8xhZnkgMHe jXPymN2iDSc5DBTxDFbn v6wbJSBvGZdgi3BkGEiE JWSOWQ8MFS3soEA5L0yE REVORHwyfXtcZmxkcnNs xUSfKcDLcQ2lfFxigD2u lMKmL9jxnZSibILzyKyn NsFeUsTjRZMbMih6rNI2 GPCxTGzdd4uyAHEpFIxf a8YuXOsRPOAKWD9CUC3q vZC6KSnCMVMVPVjwQPD2 SDywhHN1g9tfbZMkh0e2 GYfbNXJ2oIedhAFikiaj dHJjaFxjZjFcZnMyMCAg eE1sZrHEXAvfNOCoUQxa Z4GcOXUmB0EszWWMuL4a a2prIXBwVQkOUWUtZ5Kq qSVyUTrdK4IsBApiBDJc kr1olAhhXuUbfZCcvWLt lZyoUtlzhZT0BDmzFtge uE9psYPECQSPHmfNDwfe xvKuWC6YYH4GCjUGFE05 YKDnTyY5C9vLC3TYMDDV RSK3AOm5yVY9yI66YLNo KUGgrKHnQJkoF645TEAk WNQrUmE9TSIhJSvbp5sk ODBdVNevy6KiDWlPMYDQ VF9OET4nkQI0ILaQO2MT TGf7WHI3IknmwVKXCBEX OFXNNFryrDn3RVz1jDbz VadjalMxdTEdAwIHlS3k eRkpkP6qzLVyF9ygYzMr GIIsWKPgg3IuU2Z3LDHp ZSzes8kgZUAoLFenc4Dr FIuEMWEFFA7TVU1bsXC3 NYiHR8YMO6sWgGjmxQC6 Xd4SzVV5iChlrZm1e2ya iGFuc9q9TVzgJQI0wGK4 NZVpQX51REBhIGvyb3sg HUBfUWspm7YaGZjXUWUL US6NTV8rvWV4HReRW3MN QAo0Zye2yS5MD6ptmPc0 TQs2aEahTpfezuTdhWWm EkRHpK8jlXrgrW2gqHJe B4ikR6RpBOVvIdOupWMj VF7BUXPfocLMYaNdobH0 WCObUkH3DNBqPLZ3NBSq OSBjbVxwYXIgDQpccGFy WK7IFD8qXILyJGMmARLg r2Yep29ndtHrBj4jVSRc QQNnjXVtONOmFEA9TZY6 SAygiqEtTRNzEFdljt74 EQP3s9nmqFDlWAszCkbr qQHfchP9UNzWSQSYVKyB ZtJrEM7hZOaJO0YGJWoD GvoqONt0EJe7sTF3e6by nJEdn9e3AWjdTZN9xJzb o0bwqWWrJRgyMzneuNOh ptW9OLxREGXSKNkKCfIr QR7mCXsUU6NXEbM1HmI2 KgY7OKp0dItfAxtqxaQt bEHtVoGYdE7xfMlhyB4w oDMrX6tmP9OzFZFvWkFd MYA7GVKmFnVLEV3wXFht vuZCWEGLUWyJK8KsWIMR IHBMIXXuKpOHQI2pJrL4 BlY7KX06BgvgWwK5QjI3 tGC4ILRYNPALPXnKK0Ic MVOMFNORHMGkWG1NHEyS CXVTQTDWV90WERKAHXJZ C1WJQ8wCRWFup1QosVzq yPr2HIJsx16fnHvYZBYY NRUGG00VOFCJIZSVX0LC GNSDWFSAQKsCZZJKMr6R SKPXXNISPH5HUTqDKiGv DOgubDJuTFrnZMM7AWp0 GWv2yPDgi2EpzJL2SiY1 NjVcfSBQTEFDRUhPTERF Ha6KBEXQKMOSTZ6KWhXr X9IZDJ6KEv7AGPZTZKLA IH3UCWrLTuOpV4NPCC1A Rr2FXHLTQZFPWV5GUpUl EMMME6ZISvIAD9saSCSG PKVSVDIzMfQZOI6hAWLH XW3JKUTMARRYS97WILJJ MHSFT5TUQU4PXADvhAUN UGZ7QO2sISg2OGlcBGSt R0SjS5OdtjNlwKLtWCBz gyEbf3wjABE1HHNjlWHs yUIeJrAhLxkvXLL8OOWk ZGukKO9PBUJcDYF4CXng dJ38rJSpAZ8QCDAcOTiy ZXXkGDLquxQ1GJXwrXMe UBM5XJ2wbWjntKBufgrg hfD3IZ4AkF== Immediate Assessment Adequate (test code = 9837) cellularity, favor malignant Major Classification MALIGNANT A (test code = 9839) Diagnosis (test code = f8pgmSDaWLXyrEQ5XvIs 34) PRJsx6axb8VptWVfeKEz HCaceXNlzgEuns32qOP1 nF36WD1xEEFrNwA9GMBh qoF3Kyi4SFYnLGMtsEPq K834w0rtl1hyjmZdnMV8 DWZxGZCuD5UmTD9kSWLc mXUgJ39reEQxSKE2VSWd CWLmcKUcCVLfTCI4JHRq jNVxC5yuYZYeBJ1qrlzr IWzvWNejIJAsqHK8HJXg gSGaA8RiBKSgRRqgEUIs bjc8NqAtJj0hfMZptIhn WUefT3gzwO2jEcX7PTcl P4hiiH7tLVq6ROlxRIVu iGX1teS5HSUsiILhH7Zw dC4eGXZfZQ7kcxq4p4aw DRV7CAqkVJTbZwG5ylL6 NDBccGFyZFxwbGFpblxm tbHnSWIvLSPILcXSnS3y mGOni1YaJCVmoYhicXDa p1Z8CTGnh9Ncp1ZrPDNo q7IxmqZksiibTtycQIVf ZWVkbGUgYXNwaXJhdGlv bjpccGFyXHRhYlxwYXJc nTi8WhVuHUIUUASATMXA IcUBRWCMIX5HIvWCZYgP NMEICrYIZt8WIRgcCGZ6 Comment (test code = g3qmqPPfRTKwlUQ7LmDq 9835) GBAbz6dfc8ZqdZDyhTWp KGocrCUxumJasb76aIT6 zB73KB4mBIIwQgM4SYZe fzZ3Eme3PCCjXVQkvDWg X654x5ngv5fcvqCgxDW7 uJbkHBLizejwFoC2IBni GYAvibvlWXd1HAnhFQCo rBT6GXTofNPxQ0PsNHCv DH6pxur4UAV1YBroKCQc DvH2JZKebPMdQCDluFor DWjtf089VSA7DgPjXAIj ttUtaPjmfO2xFqKsTABR biQloH62qd1wsMZilxB0 aXRoIGFuIGFwcHJvcHJp MCYgPBSdrcFur2obISZx vnXygy4cONJynqM0vWUb G5VyoHXnsD4nerVesyKp UEDjyVauzutdi2voerU9 lB4lpcNsCNcgsoG2ccAe PHQwl4OpnGl8IUBld8Nl UDQwLiBUaGlzIGlzIHN1 nZTzscRzmcQrg2GvoCwh MHNrw4YlETXeHYmle4Jq kf7oVFOkiv9= Retained/Biomarker n3yvkFTrUVWmdXU9VdGf Testing (test code = SGZtq9vpo1RcfRLulFYo 9838) JJpdlGNlixSexd77tNC2 pE01BR7nYDOsExD6EELt zxS7Lhi1DSSkWRPabQQm P229f7pus1hxxmTfoUM6 qSghHNHillagDrZ7SWzp SLZrudmyJBz7JAdiSJRy oJM4GLKxoYCrI6KzLTFr XD1wvqh5JTU7ISlkWNYc MdW5PADihIZoLIGagGag RWaca953IEQ9HtKhNTDi beKerYtukN8gAyJtFNRB UjogMTAgUywgMSBJUCwg MiBDQlxwYXJccGFyIEJp f79soazckkBGUAR9eK0t VckkKJPpsIc4EhEbjCaj EnLoSY1YNJVEYQbmBXCl f5GeGuO4FJGadPTaKK8H RGQCZIA9AVmekm32HLZ6 j2pueATtXFnvAgnscHVl gtN7JUkURINOEUqMOzMr HC1mBZnIO6ZQWFvKGqfv CYO2GOileSJ7r9rdyCFl m3f4HRocUZU7pM8rx6qj aWVsZHtcKlxmbGRpbnN0 TMoPRQPOWNbWXdRqKZ4r ITcPJ9LPUcP7KhI5OcM5 MXwxfXtcZmxkcnNsdCBc WgFjeM3zxSvyoY5oAmDw MFxwYXIgTURMIERROiBc cHJvdGVjdHtcZmllbGR7 NHsjFhdviK0nwXJARKNZ AsiYMyafcyUvIA3ULVGI CoHOCX01FkN9LgF1Oaqp fXtcZmxkcnNsdCBcJzFj lB6Ja7dkSirhqZV4KFen UwrlaI8pjYGGGHFUMliA YfpktnFaXC8PQFHBZB3Q pZP2FgqwtNK9Ry78SUOk XALczCSeLNwtF563DXYe YWluXGZzMjBccGFyIEZJ T9keTHT5UBzayw03ZZI8 e3tgaOEsOVteOyfrrNKr owU4FFpDABXJPBqEUjCm KG3bSMpFE2BVLOjROxrh ZZV9YDsjkDJ0x4gpxVYz e0e8FLfkRFZ9rV6wg1cg aWVsZHtcKlxmbGRpbnN0 ZWqVTJYEJHdCHjTfSP5d WRkNC4OFSpF3FjO9QlA9 O4anuOiwPkmyquAwiFMr RjGcoL4uxZbuoD8bIeMx MFxwYXJcdiBTTUFSVExJ D3OeYMNBTKRVAFKiHjCR EO6rAfP3OnV9LE5mXbK6 AtmnqWP5JX8oWPX6UYby TNLsI56PIlOMZIKNZ12C PEVTQIMUC6NTVWTANTiX I6ZECZ8XKSWCBFGIKB7Q KOrDGdKQOVxUS0YNXI5I HWLSCFGLAV2NUfEkRTbP A6ZSS3yUSVQcNMFGQNSK MXOvVkVNUT2bDUf8Bp5h U4yzCASaBcX9XvkxIW9i UDfVry8NvHapIHR3VxK9 TcThsSMog72qO7PcyMKm bpdoREM8ZZy8JKUFKQLQ CL6UKMLTD46ZTAVOODQM T7COOCCNIiGTFHSDA35L CRMBKAJFC9SVJ3wDULQC ObLCHUZRM96QHZMWLGWD T4YRLKLPOIBGNnROWrZW KT6TIMGHYUYOYL9ALZmM PbUkVVVWQ6NAVsIQG0tg IRRYORJPMNHpEX2DlW== Informational Points f3vbjULlMEUgbCKeBqMl (test code = 9836) WDVzMJNcv0aeEEOqnNYj ZzEwMzNcZnRuYmpcdWMx NHNcRjQcg7snh976kIPj v2prZAIaFjP5qLVgFIFi rVTxY869EYYrDObho4zf b7HtQUKcaTZnl6Z9YGRJ XNzfNDMRWAa6r6wlTmUi EnJ4uIAhKGjcZ5dlxoUk qWYuQXAkBTz2zA91CQTh rD2vbRYeYMjwigOlRoQ6 UOyeOPIaHsI3YKBxmVVa EZCsS1mrUUPaPXsfMQUo CWlfqAHiXJF4fKfey7Z4 bGVzaGVldHtcZjBcZnMy GvZXo9WsBFh4jZxfS6Zc PBQkNdH0rTWvUMFbCZmj VZYbIZJsvlI9eJ82MZnp wnP0uUIyw4Axk13ph316 iV2xuFXrBXH0ERAtEVTe vTStIUYkWFS4TEGqwWXv C1ilEGUnPI7xvnpaPGnw NUgfZMKqfFY8IGZbeFNk Z1HwSROnZIppNIAojpn7 JnJsQm2huPCrnMrwMVue v3bep3hfyWCcRlz1NLSg RdTmQzynYKmfi3Qag4gt ARSucd4qCGI2fFJofRwp q8T7tAWsWFEnnRDwxmDd QPTqYxP1XHavTZ8ign78 HDEsQDU7fu3wuTUxmHgz gbKmjSVxURgrA3IrZXXg g540WZLaJ7UyZDHgs1G9 pgMnQaJiVZOkbPB6nzZ8 NHPtNQt4xNZmaeP4rhSx mSQxB2ukiA6lZAZiVH4j dgndd2vaCAhcKKuvVDUb bHH0iiH7HQAfwUMmO6Ku cV8uCYOzRQffFHKghzq5 TeJrPx4ykXCpnMqrNMsk YmtwYWdlXHBnbmNvbnRc cGduZGVjXHBsYWluXHBs YWluXGYwXGZzMjRccWxc xFzwbQ7gCyWuDxXxKFio QZ6pWEZnZ6gokQRsSXRh ZAAaF9ulYeVgeY1laBtw JNnbdbA5AZrfT70xCWH9 ZLG3bbZcUNOpvlTzSSFr QBRjUG8alSJnGHPmXDEg YC6vKXQ4VAomnYKmYSKj RJThUCDgx6WbZH7nDLZw bKFoHZM6VZTzy2GtT1Zd MYF6XCVdqM5yGNQdmNUM VCBNRCBBbmRlcnNvbiBQ INPen0yuB7faUO9iUUmf Ze0cMRQauezzPVJsnPKu agXvXGJfKZTkDJRrm0Uw IGwvmcNiru80TLBpWX7v m3RwT2rjbCPlaEd1FJIi BARoQLZof1QbSQAmtl66 OHLwDdiosJhrWHGzWd5k Iz6pGEMflpPrCLG4PmXF MO1vpbfrzKKpfTiwkw1t XHBsYWluXGYyXGZzMjJc bGFuZzEwMzNcaGljaFxm SndfInVqSRUcRKgiP5ue ZjJcZnMyMlxwYXJ9 Lab Interpretation (test Abnormal code = 29352-0) [id number] 19:42:59 Test Item Value Reference Range Interpretation Comments T4 Free (test code = 3024-7) 1.70 ng/dL 0.93-1.70 [facility] 19:42[facility]56 Test Item Value Reference Range Interpretation Comments TSH (test code = 1.54 See_Comment [Automated message] The 37708-9) system which ge nerated this result transmit bertha reference range : 0.27 - 4.20 mcunit/mL. The reference range was not used to interpr et this result as mattie l/abnormal. [facility] PCR- Asymptomatic [id number] 22:58:00 Test Item Value Reference Range Interpretation Comments COVID19 (SARS Not Detected Not Detected CoV-2) Result (test code = ____[place] a 22237-2) qualitative reverse-transcr iptase polymerase luis n reaction [...] patients provid ed by the manufacture r ([employer]) c an be reviewed at:https://www. fda.go v/media/452079/ downlo ad. A fact shee t for Health Care pro viders is provided by the traffic worker ([employer]) and can be reviewed at: https://www.fda .gov/m edia/646809/josee nload Results must be interpreted wit hin [...] specimen for te sting if clinically indicated. This assay has been approv ed by the FDA for use only under Emergency Use Authorization ( EUA) in laboratories that have been CLIA-certified to perform moderate-comple xity and high-comple xity tests. The performance characteristics of this assay were verified by the Microbiology Laboratory at [facility], CLIA Accreditation # : [id number] and CAP Accreditation # : [id number]. COVID19 SARS MINIBUS DRIVER Swab Source (test code = 41202) COVID19 SARS Pre-Out of OR Indication (test Procedure code = 43193) [facility]
--- NOTE | 2022-05-03 07:52 | RAD REPORT ---
EXAM DESCRIPTION: CT - Ct Stroke Brain Wo Cont - 05/03/2022 7:44 am CLINICAL HISTORY: Left sided deficits COMPARISON: Head Brain Wo Cont dated 05/21/2018; HEAD BRAIN W O CONTRAST dated 04/18/2009 TECHNIQUE: All CT scans are performed using dose optimization technique as appropriate and may inclu de automated exposure control or mA/KV adjustment according to patient size. FINDINGS: No intracranial hemorrhage, hydrocephalus or extra-axial fluid collection.No areas of brai n edema or evidence of midline shift. Mild chronic small vessel ischemic changes. Mild age advanced c erebral atrophy. Mild thickening in the right maxillary sinus. The calvarium is intact. IMPRESSION: No acute intracranial abnormality. Called to Dr. Eng by Dr. Sy at 1832 on 05/03/22.
[2022-05-03 07:53] LABS: Hematocrit 39.8 % (36.0-45.0); Lymphocytes % 10.4 % (15.3-44.8); MCV 86.9 fL (80-100); RBC Red Blood Cell Count 4.58 M/uL (3.86-4.86)
[2022-05-03 07:57] LABS: Protime INR 1.06
[2022-05-03 08:16] LABS: Albumin 2.9 g/dL (3.4-5.0); Bilirubin Direct 0.1 mg/dL (0-0.2); Bilirubin Total 0.5 mg/dL (0.2-1.0); Magnesium 1.9 mg/dL (1.8-2.4); Potassium 3.9 mmol/L (3.5-5.1); Protein, Total 7.3 g/dL (6.4-8.2)
[2022-05-03 08:19] LABS: Troponin High Sensitivity 95.5 pg/mL (<58.9)
--- NOTE | 2022-05-03 08:27 | RAD REPORT ---
EXAM DESCRIPTION: RAD - Chest Single View - 05/03/2022 8:15 am CLINICAL HISTORY: CHEST PAIN COMPARISON: Chest Single View dated 12/10/2021; Chest Pa And Lat (2 Views) dated 12/20/2020; Chest Sing le View dated 12/08/2020; Chest Single View dated 07/05/2019 FINDINGS: Lines: None. Lungs: Ill-defined right mid lung opacity and mild left basilar opacities. Pleural: No significant pleural effusions or pneumothorax. Cardiac: The heart size is within normal limits. Mediastinum: Within normal limits. Bones: No acute fractures. Other: None IMPRESSION: Mild opacities in the right mid lung and left lung base. This could represent pneumonia. Recommend 6 week follow-up chest radiograph to ensure resolution.
[2022-05-03 08:35] LABS: Blood Morphology Comment NOT SEEN (NOT SEEN); Platelet Estimate ADEQ
--- NOTE | 2022-05-03 08:54 | ER ---
Nurse's Notes [facility] Name: Connie Buckley Age: 81 yrs Sex: Female : 1940 Arrival Date: 05/03/2022 Time: 07:28 Bed 25 Private MD: Diagnosis: Pneumonia, TIA, elevated troponin Presentation: 05/03 07:30 Chief complaint: Patient states: I have been weak on the left side since yesterday ko1 about 330 pm and my speech is not normal. Coronavirus screen: At this time, the client does not indicate any symptoms associated with coronavirus-19. Ebola Screen: No symptoms or risks identified at this time. Initial Sepsis Screen: Does the patient meet any 2 criteria? No. Patient's initial sepsis screen is negative. Does the patient have a suspected source of infection? No. Patient's initial sepsis screen is negative. Risk Assessment: Do you want to hurt yourself or someone else? Patient reports no desire to harm self or others. Onset of symptoms was May 02, 2022 at 15:30. 07:30 Method Of Arrival: EMS: [facility] ko1 07:30 Acuity: MARC 2 ko1 Triage Assessment: 07:56 General: Appears in no apparent distress. comfortable, Behavior is calm, cooperative, ko1 appropriate for age. Pain: Denies pain. EENT: Reports partial tongue removal. Neuro: Level of Consciousness is awake, alert, obeys commands, Oriented to person, place, time, situation, Appropriate for age Residential Finish Carpenter are weak on left Weakness in left Speech is slurred, Facial droop on left, Pupils are PERRLA, Pupil Size: 3 Intact. Cardiovascular: No deficits noted. Respiratory: No deficits noted. GI: No deficits noted. : No deficits noted. Derm: No deficits noted. Musculoskeletal: No deficits noted. Historical: - Allergies: 07:56 amlodipine besylate; ko1 07:56 Clonidine; ko1 07:56 Codeine; ko1 07:56 doxazosin; ko1 07:56 ezetimibe; ko1 07:56 Indomethacin; ko1 - Home Meds: 07:56 levothyroxine 75 mcg oral cap once daily [Active]; magnesium oxide 400 mg magnesium ko1 oral cap 400 mg twice a day [Active]; Ecotrin 325 mg Oral TbEC 1 tab once daily [Active]; metoprolol tartrate 50 mg oral tab .5 tab 2 times per day [Active]; famotidine 40 mg oral tab 1 tab once daily [Active]; isosorbide dinitrate 30 mg oral tab 1 tab 1 tab daily [Active]; nitroglycerin 0.4 mg SL subl 1 tab every 5 minutes [Active]; - PMHx: 07:56 Angina; Diabetes - NIDDM; Hyperlipidemia; Hypertension; Hypothyroidism; Mouth Cancer; ko1 TIA; - PSHx: 07:56 hysterectomy; Partial tongue removal; ko1 - Immunization history:: Adult Immunizations up to date. - Social history:: Smoking status: Patient denies any tobacco usage or history of. Screenin:30 Abuse screen: Denies threats or abuse. Denies injuries from another. Nutritional ko1 screening: No deficits noted. Tuberculosis screening: No symptoms or risk factors identified. Fall Risk None identified. Assessment: 07:30 General: Appears in no apparent distress. comfortable. ko1 Vital Signs: 07:30 BP 155 / 95; Pulse 107; Resp 18; Temp 97.2; Pulse Ox 98% ; Weight 62.14 kg; Height 5 ko1 ft. 4 in. (162.56 cm); Pain 0/10; 07:30 BP 147 / 92; Pulse 107; ko1 08:00 BP 156 / 85; Pulse 99; Pulse Ox 96% ; ko1 08:30 BP 146 / 98; Pulse 86; ko1 09:30 BP 137 / 67; Pulse 89; ko1 13:41 BP 129 / 86; Pulse 99; Pulse Ox 100% ; ko1 07:30 Body Mass Index 23.52 (62.14 kg, 162.56 cm) ko1 Vitals: 07:30 Cardiac Rhythm Assessment Regular Sinus tach. ko1 ED Course: 07:28 Patient arrived in ED. eb 07:29 Sunni Eng MD is Attending Physician. sp3 07:30 Priscilla Lazar RN is Primary Nurse. ko1 07:30 Maintain EMS IV. Dressing intact. Site clean \T\ dry. Gauge \T\ site: 20 r ac. ko 1 07:30 Patient has correct armband on for positive identification. Allergy band placed. Placed ko1 in gown. Bed in low position. Call light in reach. Side rails up X2. Client placed on continuous cardiac and pulse oximetry monitoring. NIBP monitoring applied. 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 Diet: Patient is NPO. Patient is placed in psych hold. 07:51 Basic Metabolic Panel Sent. ko1 07:51 CBC with Diff Sent. ko1 07:51 Hepatic Function Sent. ko1 07:51 High Sensitivity Troponin Sent. ko1 07:51 Magnesium Sent. ko1 07:51 Protime (+inr) Sent. ko1 07:52 Ptt, Activated Sent. ko1 07:52 CT Stroke Brain w/o Contrast Sent. ko1 07:56 Triage completed. ko1 07:56 Arm band placed on left wrist. ko1 08:30 Stroke CXR 1 View Sent. eb 08:53 Black Castellanos MD is Hospitalizing Provider. sp3 09:21 Carrington Arteaga MD is Hospitalizing Provider. sp3 09:32 Urine Microscopic Only Sent. ko1 09:32 Urine Culture Sent. ko1 09:32 Blood Culture Adult (2) Sent. ko1 09:44 Flu Sent. ko1 09:44 SARS RAPID Sent. ko1 14:01 Troponin High Sensitivity Sent. ko1 Administered Medications: 09:44 Drug: Rocephin (cefTRIAXone) 1 grams Route: IV; Rate: calculated rate; Site: right ko1 antecubital; 11:17 Drug: Zithromax (azithromycin) 500 mg Route: IVPB; Infused Over: 1 hrs; Site: right ko1 antecubital; Medication: 15:11 VIS not applicable for this client. jl7 Outcome: 08:53 Decision to Hospitalize by Provider. sp3 15:30 Patient left the ED. eb Signatures: Aster Freeman RN RN jl7 Audra Mcneal Setul, MD MD sp3 Priscilla Lazar RN RN ko1 Corrections: (The following items were deleted from the chart) 08:10 08:07 BP 155 / 95; ko1 ko1
--- NOTE | 2022-05-03 08:54 | EDPHYS ---
Physician Documentation [facility] Name: Connie Buckley Age: 81 yrs Sex: Female : 1940 Arrival Date: 05/03/2022 Time: 07:28 Bed 25 Private MD: ED Physician Sunni Eng HPI: 05/03 07:46 This 81 yrs old Female presents to ER via Unassigned with complaints of left sided sp3 weakness and slurred speech. 07:46 81-year-old female with a history of hypertension, diabetes, prior TIA, prior mouth sp3 cancer and hypothyroidism presents via EMS for chief complaint left-sided weakness with left upper extremity greater than left lower extremity and slurred speech which has somewhat improved with all symptoms starting yesterday at 3:30 PM approximately 16 hours ago. She denies any other symptoms including headache, neck pain, trauma, fever, URI symptoms, neck pain, chest pain, shortness of breath, back pain, abdominal pain, nausea, vomiting, diarrhea, extremity pain, loss of bowel or bladder, or any other symptoms on ROS at this time.. Historical: - Allergies: 07:56 amlodipine besylate; ko1 07:56 Clonidine; ko1 07:56 Codeine; ko1 07:56 doxazosin; ko1 07:56 ezetimibe; ko1 07:56 Indomethacin; ko1 - Home Meds: 07:56 levothyroxine 75 mcg oral cap once daily [Active]; magnesium oxide 400 mg magnesium ko1 oral cap 400 mg twice a day [Active]; Ecotrin 325 mg Oral TbEC 1 tab once daily [Active]; metoprolol tartrate 50 mg oral tab .5 tab 2 times per day [Active]; famotidine 40 mg oral tab 1 tab once daily [Active]; isosorbide dinitrate 30 mg oral tab 1 tab 1 tab daily [Active]; nitroglycerin 0.4 mg SL subl 1 tab every 5 minutes [Active]; - PMHx: 07:56 Angina; Diabetes - NIDDM; Hyperlipidemia; Hypertension; Hypothyroidism; Mouth Cancer; ko1 TIA; - PSHx: 07:56 hysterectomy; Partial tongue removal; ko1 - Immunization history:: Adult Immunizations up to date. - Social history:: Smoking status: Patient denies any tobacco usage or history of. ROS: 07:47 Constitutional: Negative for fever, chills, and weight loss, Eyes: Negative for injury, sp3 pain, redness, and discharge, ENT: Negative for injury, pain, and discharge, Neck: Negative for injury, pain, and swelling, Cardiovascular: Negative for chest pain, palpitations, and edema, Respiratory: Negative for shortness of breath, cough, wheezing, and pleuritic chest pain, Abdomen/GI: Negative for abdominal pain, nausea, vomiting, diarrhea, and constipation, Back: Negative for injury and pain, MS/Extremity: Negative for injury and deformity, Skin: Negative for injury, rash, and discoloration, Psych: Negative for depression, anxiety, suicide ideation, homicidal ideation, and hallucinations, Allergy/Immunology: Negative for hives, rash, and allergies, Endocrine: Negative for neck swelling, polydipsia, polyuria, polyphagia, and marked weight changes, Hematologic/Lymphatic: Negative for swollen nodes, abnormal bleeding, and unusual bruising. 07:47 All other systems are negative. Exam: 07:48 Radiologist reports: Informed by radiologist that CT scan of the head on code stroke sp3 was negative. 07:48 Constitutional: This is a well developed, well nourished patient who is awake, alert, and in no acute distress. Head/Face: Normocephalic, atraumatic. Eyes: Pupils equal round and reactive to light, extra-ocular motions intact. Lids and lashes normal. Conjunctiva and sclera are non-icteric and not injected. Cornea within normal limits. Periorbital areas with no swelling, redness, or edema. ENT: Nares patent. No nasal discharge, no septal abnormalities noted. External auditory canals are clear. Oropharynx with no redness, swelling, or masses, exudates, or evidence of obstruction, uvula midline. Mucous membranes moist. Neck: Trachea midline, no thyromegaly or masses palpated, and no cervical lymphadenopathy. Supple, full range of motion without nuchal rigidity, or vertebral point tenderness. No Meningismus. Chest/axilla: Normal chest wall appearance and motion. Nontender with no deformity. No lesions are appreciated. Cardiovascular: Regular rate and rhythm with a normal S1 and S2. No gallops, murmurs, or rubs. Normal PMI, no JVD. No pulse deficits. Respiratory: Lungs have equal breath sounds bilaterally, clear to auscultation and percussion. No rales, rhonchi or wheezes noted. No increased work of breathing, no retractions or nasal flaring. Abdomen/GI: Soft, non-tender, with normal bowel sounds. No distension or tympany. No guarding or rebound. No evidence of tenderness throughout. Back: No spinal tenderness. No costovertebral tenderness. Full range of motion. Skin: Warm, dry with normal turgor. Normal color with no rashes, no lesions, and no evidence of cellulitis. MS/ Extremity: Pulses equal, no cyanosis. Neurovascular intact. Full, normal range of motion. Psych: Awake, alert, with orientation to person, place and time. Behavior, mood, and affect are within normal limits. 07:48 Neuro: Neurological exam reveals normal mental status with alert and oriented patient x3. Patient's speech is mildly slurred as per her own recollection and she states that it was this way since yesterday but has mildly improved. There is 4/5 strength in the left upper extremity with normal strength in the remainder of neurological zones. Pain in temperature and proprioception is preserved throughout the body. Sensory exam is normal in both dermatomal and peripheral nerve pattern. Gait was not tested. Cranial nerves II through XII are intact.. 07:51 ECG was reviewed by the Attending Physician. EKG demonstrates sinus tachycardia at 100 sp3 bpm with normal intervals, normal QRS, normal axis, nonspecific diffuse ST/T-segment changes without evidence of ischemia. ST segments are different from prior EKG dated 12/10/2021. Vital Signs: 07:30 BP 155 / 95; Pulse 107; Resp 18; Temp 97.2; Pulse Ox 98% ; Weight 62.14 kg; Height 5 ko1 ft. 4 in. (162.56 cm); Pain 0/10; 07:30 BP 147 / 92; Pulse 107; ko1 08:00 BP 156 / 85; Pulse 99; Pulse Ox 96% ; ko1 08:30 BP 146 / 98; Pulse 86; ko1 09:30 BP 137 / 67; Pulse 89; ko1 13:41 BP 129 / 86; Pulse 99; Pulse Ox 100% ; ko1 07:30 Body Mass Index 23.52 (62.14 kg, 162.56 cm) ko1 MDM: 07:29 Patient medically screened. sp3 07:50 Data reviewed: vital signs, nurses notes. ED course: 81-year-old female with new onset sp3 neurological symptoms consisting of slurred speech and left upper extremity weakness with remainder of neurological exam normal. Differential diagnosis includes CVA/TIA spectrum, ICH, tumor/mass, metabolic abnormality, thromboembolic disease, vascular dissection and or compromise, among others. We will work patient up with CT scan of the head, laboratory values, EKG and likely place patient in observation for neurological consultation and MRI.. 08:49 ED course: CT scan of the head is negative as is the remainder of the stroke work-up. sp3 Troponin level is a 95 in the borderline zone. EKG again does not show any STEMI criteria and I do not believe patient has acute coronary syndrome as her primary process. Patient also has a 19,000 WBC count and pneumonia demonstrated on chest x-ray. Troponin may be stress ischemia although patient is not in any respiratory distress. Serial troponins will need to be obtained. MRI of the brain also need to be obtained as patient still has 4/5 strength in the left upper extremity which is new. Rocephin and Zithromax IV was started for community-acquired pneumonia. Will admit patient to internal medicine to delineate remainder of patient's working diagnosis.. 05/03 07:30 Order name: Basic Metabolic Panel sp3 05/03 07:30 Order name: CBC with Diff sp3 05/03 07:30 Order name: Hepatic Function sp3 05/03 07:30 Order name: High Sensitivity Troponin sp3 05/03 07:30 Order name: Magnesium sp3 05/03 07:30 Order name: Protime (+inr) sp3 05/03 07:30 Order name: Ptt, Activated sp3 05/03 07:48 Order name: Glucose, Ancillary Testing; Complete Time: 08:19 EDMS 05/03 07:53 Order name: CBC with Automated Diff; Complete Time: 08:46 EDMS 05/03 07:57 Order name: Protime (+INR); Complete Time: 08:19 EDMS 05/03 07:57 Order name: PTT, Activated Partial Thromb; Complete Time: 08:19 EDMS 05/03 08:19 Order name: Basic Metabolic Panel; Complete Time: 08:46 EDMS 05/03 08:19 Order name: Liver (Hepatic) Function; Complete Time: 08:46 EDMS 05/03 08:19 Order name: Troponin High Sensitivity; Complete Time: 08:46 EDMS 05/03 07:30 Order name: CT Stroke Brain w/o Contrast sp3 05/03 07:30 Order name: Stroke CXR 1 View sp3 05/03 08:19 Order name: Magnesium; Complete Time: 08:46 EDMS 05/03 08:20 Order name: Urine Culture sp3 05/03 08:20 Order name: Urine Microscopic Only sp3 05/03 08:20 Order name: Blood Culture Adult (2) sp3 05/03 08:29 Order name: SARS RAPID eb 05/03 08:29 Order name: Flu eb 05/03 08:35 Order name: Manual Differential; Complete Time: 08:46 EDMS 05/03 09:14 Order name: Urine Dipstick-Ancillary EDMS 05/03 09:52 Order name: Urine Microscopic Only EDMS 05/03 10:10 Order name: SARS-COV-2 Antigen Rapid EDMS 05/03 10:14 Order name: Influenza Screen (A EDMS 05/03 13:48 Order name: Troponin High Sensitivity ph 05/03 15:02 Order name: Troponin High Sensitivity EDMS 05/03 15:22 Order name: Urine Culture EDMS 05/03 07:30 Order name: Call for Old EKG; Complete Time: 07:37 sp3 05/03 07:30 Order name: EKG; Complete Time: 07:31 sp3 05/03 07:30 Order name: Accucheck; Complete Time: 07:39 sp3 05/03 07:30 Order name: Cardiac monitoring; Complete Time: 07:39 sp3 05/03 07:30 Order name: EKG - Nurse/Tech; Complete Time: 07:39 sp3 05/03 07:30 Order name: IV Saline Lock; Complete Time: 07:39 sp3 05/03 07:30 Order name: Labs collected and sent; Complete Time: 07:52 sp3 05/03 07:30 Order name: NPO; Complete Time: 07:39 sp3 05/03 07:30 Order name: O2 Per Protocol; Complete Time: 07:39 sp3 05/03 07:30 Order name: O2 Sat Monitoring; Complete Time: 07:39 sp3 05/03 07:52 Order name: CT; Complete Time: 08:19 EDMS 05/03 08:20 Order name: Urine Dipstick-Ancillary (obtain specimen); Complete Time: 09:27 sp3 05/03 08:28 Order name: RAD; Complete Time: 08:46 EDMS 05/03 10:09 Order name: MRI Stroke Protocol sp3 05/03 12:50 Order name: MRI EDMS 05/03 12:52 Order name: MRI EDMS 05/03 12:57 Order name: MRI EDMS Administered Medications: 09:44 Drug: Rocephin (cefTRIAXone) 1 grams Route: IV; Rate: calculated rate; Site: right ko1 antecubital; 11:17 Drug: Zithromax (azithromycin) 500 mg Route: IVPB; Infused Over: 1 hrs; Site: right ko1 antecubital; Disposition Summary: 05/03/22 08:53 Hospitalization Ordered Hospitalization Status: Inpatient Admission sp3 Location: Telemetry/MedSurg (Inpatient) sp3 Condition: Stable sp3 Problem: new sp3 Symptoms: have worsened sp3 Bed/Room Type: Standard sp3 Provider: Carrington Arteaga(05/03/22 09:21) sp3 Room Ass[place]: [facility] [place] [facility] [place](05/03/22 14:14) eb Diagnosis - Pneumonia, TIA, elevated troponin sp3 Forms: - Medication Reconciliation Form sp3 - SBAR form sp3 Signatures: Dispatcher [employer] EDMS Audra Mcneal Setul, MD MD sp3 Priscilla Lazar RN RN ko1 Corrections: (The following items were deleted from the chart) 07:53 07:46 81-year-old female with a history of hypertension and hypothyroidism presents via sp3 EMS for chief complaint left-sided weakness with left upper extremity greater than left lower extremity and slurred speech which has somewhat improved with all symptoms starting yesterday at 3:30 PM approximately 16 hours ago. She denies any other symptoms including headache, neck pain, trauma, fever, URI symptoms, neck pain, chest pain, shortness of breath, back pain, abdominal pain, nausea, vomiting, diarrhea, extremity pain, loss of bowel or bladder, or any other symptoms on ROS at this time.. sp3 09:21 08:53 Black Castellanos sp3 sp3 14:14 08:53 sp3 eb
[2022-05-03 09:14] LABS: Urine Blood 1+ (Negative); Urine Glucose Negative (Negative); Urine Protein 1+ (Negative); Urine Specific Gravity 1.015 (1.005-1.030)
[2022-05-03] MEDS ORDERED: AZITHROMYCIN 500 MG INJ IVPB ONE (09:34)
[2022-05-03] MEDS ORDERED: CEFTRIAXONE 1000 MG/VIAL ONE ×2 (09:34→20:50)
[2022-05-03] MEDS ORDERED: NA CHLORIDE 0.9% 500 ML ONE (09:34)
[2022-05-03 09:52] LABS: Urine Bacteria Loaded /HPF (<20); Urine RBC <5 /HPF (None Seen)
[2022-05-03 10:10] LABS: SARS-CoV-2 Antigen Rapid Res Negative (Negative)
--- NOTE | 2022-05-03 11:39 | EKG ---
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
--- NOTE | 2022-05-03 12:49 | RAD REPORT ---
EXAM DESCRIPTION: MRI - Brain W/Wo Cont - 05/03/2022 12:37 pm CLINICAL HISTORY: LUE weakness + Slurred speech Headache, drowsiness, CVA symptomology COMPARISON: MRA Head Wo Cont dated 05/03/2022; MRA Neck W/Wo Cont dated 05/03/2022 TECHNIQUE: Multi-sequence, multiplanar MR imaging of the brain was performed with contrast. FINDINGS: No intracranial hemorrhage, hydrocephalus, or extra-axial fluid collection.T2 and FLAIR hy perintensity in the periventricular white matter, greatest on the left in the frontal region is likel y chronic microvascular ischemia. No edema or shift of midline structures. No intracranial mass. DWI imaging demonstrates an area of abnormal signal posterior right frontal lobe along the cortex of the right precentral (motor) cortex compatible with acute CVA. The largest area of infarction measures 19 mm in transverse dimension. No hemorrhage seen.. The midline structures are normally formed. Mastoid air cells and paranasal sinuses are clear. Post-contrast images show no abnormal enhancement to suggest tumor or infection. IMPRESSION: Acute linear cortically based CVA measuring maximally 19 mm is identified in the right p recentral gyrus (motor cortex). No hemorrhage is seen associated with this or elsewhere. No pathologic post-contrast enhancement suspected.No midline shift
--- NOTE | 2022-05-03 12:51 | RAD REPORT ---
EXAM DESCRIPTION: MRI - MRA Head Wo Cont - 05/03/2022 12:37 pm CLINICAL HISTORY: LUE weakness + Slurred speech CVA COMPARISON: Ct Stroke Brain Wo Cont dated 05/03/2022 FINDINGS: 3D noncontrast [id number] MR angiography of the [place] of Gr was performed. No aneurysm, flow-limiting stenosis or vascular malformation is seen. Forward flow seen in codominant vertebral arteries. The visualized dural venous sinuses appear patent. IMPRESSION: No significant flow abnormality of the [place] of Gr is identified.
--- NOTE | 2022-05-03 12:56 | RAD REPORT ---
EXAM DESCRIPTION: MRI - MRA Neck W/Wo Cont - 05/03/2022 12:37 pm CLINICAL HISTORY: LUE weakness + Slurred speech CVA symptomology, headache COMPARISON: Abdomen Pelvis W Contrast dated 12/08/2020 FINDINGS: Contrast enhance 2D [id number] MR angiography of the neck vessels was performed. There is an irregular unusual T2 hyperintense lesion the base of the neck on the right measuring 4.8 x 3.1 cm. This is of unclear etiology. Left aortic arch is present. Normal branching pattern of the great vessels is seen. There is moderate narrowing of the right carotid bulb estimated at 50 - 70% based on NASCET criteria. There is no significant left-sided carotid stenosis seen. Antegrade flow seen codominant vertebral a rteries. IMPRESSION: Moderate stenosis of the right carotid bulb is present estimated at 50-70% based on NASC ET criteria. Irregular 4.8 cm T2 hyperintense lesion base of the neck on the right. This is of unclear etiology an d significance. Recommend CT soft tissue neck with contrast for further evaluation.
[2022-05-03] MEDS ORDERED: ALBUTEROL 2.5 MG/3 ML NEB SOL NEB PRN ×2 (13:43→15:30)
[2022-05-03] MEDS ORDERED: IPRATROPIUM BROM 0.5MG/2.5ML NEB PRN ×2 (13:43→15:30)
[2022-05-03] MEDS ORDERED: ACETAMINOPHEN 500 MG TAB PO PRN ×2 (13:43→15:30)
[2022-05-03 16:10] VITALS: BMI 23.5
[2022-05-03] MEDS: D5 0.9 NS 1,000 ML IV SCH (18:28)
[2022-05-03] MEDS ORDERED: NA CHLORIDE 0.9% 50 ML ONE (20:50)
[2022-05-03] MEDS: CEFTRIAXONE 1,000 MG in NA CHLORIDE 0.9% 50 ML IVPB SCH (21:07)
[2022-05-04 04:12] LABS: Hematocrit 35.5 % (36.0-45.0); Lymphocytes % 7.3 % (15.3-44.8); MCV 87.6 fL (80-100); MPV 8.4 fL (7.6-11.3); RBC Red Blood Cell Count 4.06 M/uL (3.86-4.86)
[2022-05-04 04:33] LABS: Potassium 3.8 mmol/L (3.5-5.1)
[2022-05-04] MEDS: D5 0.9 NS 1,000 ML IV SCH (08:57)
[2022-05-04] MEDS: CEFTRIAXONE 1,000 MG in NA CHLORIDE 0.9% 50 ML IVPB SCH ×2 (08:58→21:16)
[2022-05-04] MEDS ORDERED: CEFTRIAXONE 1,000 MG in NA CHLORIDE 0.9% 50 ML IVPB SCH (09:45)
[2022-05-04] MEDS: ISOSORBIDE MONO SR 30 MG TAB PO SCH (10:28)
[2022-05-04] MEDS: CLOPIDOGREL 75 MG TABLET PO SCH (10:29)
[2022-05-04] MEDS: METOPROLOL TAR 25 MG TAB PO SCH ×2 (10:29→21:18)
[2022-05-04] MEDS: ASPIRIN EC 81 MG TAB PO SCH (10:29)
[2022-05-04] MEDS: ENSURE HIGH PROTEIN 237 ML CAN PO SCH ×3 (10:30→21:31)
[2022-05-04] MEDS: ENOXAPARIN 40 MG/0.4 ML SQ SCH (10:30)
--- NOTE | 2022-05-04 10:36 | PN ---
Date of Progress Note: 05/04/2022 Subjective: The patient was seen this morning for followup. Her was present with her at bed side and the patient reports that her speech actually is better than yesterday and I have seen that h er speech is lot better to understand. There is still slight slurred speech, but it is definitely be tter today than yesterday and her facial asymmetry is also better than yesterday and I would say it h as almost resolved compared to yesterday. Vital signs reviewed. The patient reports that she is abl e to swallow her saliva today without any difficulty at all. When I saw her, she was sitting in the bed. Her was at bedside. Objective: Vital Signs: Reviewed. HEENT: Unremarkable. Lungs: Clear to auscultation. Heart: Sounds normal. Abdomen: Soft. Bowel sounds normal. No guarding, rigidity, tenderness, distention. Extremities: No leg edema. Neuro: Her facial asymmetry has almost completely resolved. Speech is minimally slurred, but much b steven than yesterday and power in left upper extremity is 4+/5 and that has shown improvement compare d to yesterday. Rest of the extremity has normal power. Laboratory Data: Sodium 138, potassium 3.8, chloride 109, bicarb 24, BUN 19, creatinine 0.77, glucos e 168. Troponin this morning 81.9. White count this morning 14.2, hemoglobin 11.7, platelets 246. Impression: 1.Stroke. 2.Pneumonia, likely aspiration pneumonia. 3.Urinary tract infection. 4.Hypertension. 5.Coronary artery disease. 6.Diabetes mellitus. 7.Carotid artery stenosis. Plan: We will go ahead and continue current aspirin, Plavix, high dose statin therapy. I will ask layla elliottcarla to do bedside swallowing evaluation and if the patient passes this bedside swallowing evaluation , then to start her on a soft diet. We will follow up with Speech Therapy, Physical Therapy and Occu pational Therapy. I have advised the patient to follow with Dr. Alejandro on outpatient basis for wells tid artery stenosis. Continue current antibiotic for pneumonia and urinary tract infection, and I wi ll see her tomorrow for followup. RASHMI/MODL Voice ID: [id number] Report ID: [id number]
[2022-05-04] MEDS ORDERED: AZITHROMYCIN IV 250 MG in NA CHLORIDE 0.9% 250 ML IVPB SCH ×4 (11:00)
--- NOTE | 2022-05-04 11:45 | HP ---
Date of Admission: 05/03/2022 Chief Complaint: Difficulty with speech and weakness of arm. History Of Present Illness: This is a 81-year-old very pleasant female patient, who lives at home wi th her , came into emergency room today with above-mentioned complaints. The patient reports that yesterday around 3:30 p.m. or so, she noted to have some trouble with her speech and weakness of the left arm and some tingling sensation of the left hand. Denies any headache. No visual complain ts. No trouble walking. The patient did not seek any medical attention up until today. She came in to emergency room. After she was evaluated, she was admitted to the hospital with diagnosis of darrell e. I saw her in the emergency room. Allergies: TO CODEINE CAUSING ITCHING, INDOMETHACIN CAUSING SHORTNESS OF BREATH, CLONIDINE, DOXAZOSI N CAUSING NAUSEA, ZETIA CAUSING BACK PAIN. Medications: Aspirin 81 mg daily, famotidine 40 mg at bedtime, isosorbide mononitrate 30 mg daily, l evothyroxine 75 mcg daily, magnesium oxide 400 mg 2 times a day, metoprolol 50 mg she takes half a ta blet 2 times a day, Nitrostat p.r.n., rosuvastatin 5 mg 2 times a week. 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 All other systems reviewed and negative. 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 Past Surgical History: Surgery for her tongue cancer, surgery for removal of melanoma, ventral herni a repair in December 2020, hysterectomy, back surgery. Family History: Parents had coronary artery disease. Social History: Negative for smoking and alcohol use. Physical Examination: Vital Signs: Temperature 97.2, pulse 107, respiratory rate 18, blood pressure 147/92, oxygen saturat ion 98%. Height 5 feet 4 inches, weight 136 pounds. General: Awake, alert, oriented, not in distress. HEENT: Head atraumatic, normocephalic. Conjunctivae nonerythematous. Sclerae white. Mouth, no thr ush or edema noted. Ears/Nose, no mass, lesion, discharge noted. Neck: Supple. No JVD, lymph nodes, bruit, thyromegaly noted. Lungs: Bilateral good equal air entry. Clear to auscultation. No rhonchi. No rales. Heart: Normal heart sounds, no murmur or gallop. Abdomen: Soft, bowel sounds normal. No guarding, rigidity, tenderness, mass, hepatosplenomegaly, dis tention, or bruit noted. Extremities: No leg edema. No calf tenderness. Skin: No rash, ulcer, cellulitis. Lymphatics: No lymph node enlargement in neck, supraclavicular, infraclavicular region. Neuro: No focal neurological deficit. Chest: Unremarkable. External Genitalia: Deferred. Rectal: Deferred. RESCUE BOAT OPERATOR: The patient has slight facial asymmetry with flattening of the left nasolabial fold and power i n left upper extremity is 4/5. Laboratory Data: White count 19.3, hemoglobin 12.9, platelets 260. Sodium 134, potassium 3.9, chlor maribel 104, bicarb 22, BUN 28, creatinine 1, glucose 149. Liver function tests unremarkable. Troponin 95.5, second set troponin 82.5. Urinalysis; loaded bacteria, 1+ esterase. Chest x-ray; mild opacity in the right mid lung and left lung base. CAT scan of the brain; no acute intracranial changes. MR I of the brain shows acute linear cortically based stroke measuring 19 mm and present in the right mo tor cortex. No hemorrhage noted. MRA of [place] of [place] was negative. PE showed MRA of neck shows moderate stenosis of the right carotid bulb approximately 50% to 70% stenosis, irregular 4.8 cm hype rintense lesion noted in the neck on the right side. Impression: 1.Stroke. 2.Carotid artery stenosis, right side. 3.Hypertension. 4.Mixed hyperlipidemia. 5.Coronary artery disease. 6.Type 2 diabetes mellitus. 7.Hypothyroidism. 8.Chronic kidney disease, stage 3A. 9.Gastroesophageal reflux disease. 10.Pneumonia, likely aspiration pneumonia. 11.Urinary tract infection. Plan: Admit the patient to hospital for further evaluation and management of this problem. The [facility] ent is appropriate for inpatient and is expected to spend 2 midnights in the hospital. The patient d id fail bedside swallowing evaluation today, so we will keep her n.p.o., re-evaluate her tomorrow. C onsult Speech Therapy, Physical Therapy, Occupational Therapy. We will consult neurologist Dr. James sherman, get echo with Doppler and carotid Doppler. Continue aspirin 81 mg daily, add Plavix 75 mg daily . DVT prophylaxis will be given using Lovenox 40 mg subcutaneous injection daily. We will re-evalua te her swallowing tomorrow and if she is able to swallow, then we will restart her home medications f or blood pressure. High dose statin therapy will be given using dose rosuvastatin 20 mg daily at bed time and we will get a lipid profile done on her. Continue levothyroxine for hypothyroidism. Diabwayne bardales, does not require any medical management as she does not take any medications for diabetes at home . For coronary artery disease, we will continue her isosorbide mononitrate and aspirin. Her slightl y elevated cardiac enzymes not indicating any acute myocardial infarction likely indicating demand is chemia. For abnormality noted on the MRI of the neck, the patient was made aware of that, she goes t o [facility] regularly for her followup and she was encouraged to continue to do so at [facility]. We will see her tomorrow for followup. Details and plan of treatment discussed with her. RASHMI/MODL Voice ID: [id number]
[2022-05-04] MEDS: AZITHROMYCIN IV 250 MG in NA CHLORIDE 0.9% 250 ML IVPB SCH (12:00)
[2022-05-04] MEDS: ROSUVASTATIN 10 MG TAB PO SCH (21:16)
[2022-05-05] MEDS: D5 0.9 NS 1,000 ML IV SCH ×3 (02:16→16:37)
--- NOTE | 2022-05-05 07:03 | RAD REPORT ---
EXAM DESCRIPTION: US - CP - 05/05/2022 6:27 am CLINICAL HISTORY: stroke COMPARISON: MRA Neck W/Wo Cont dated 05/03/2022; Brain W/Wo Cont dated 05/03/2022; MRICERVICAL SPINE W O CONTR dated 12/13/2014 TECHNIQUE: Real-time sonographic evaluation of both carotid systems was performed. Doppler interroga tion was performed with waveform tracing bilaterally. FINDINGS: Normal high resistance waveforms are noted in both external carotid arteries. The common c arotid arteries and internal carotid arteries show normal low resistance waveforms. Mild soft and hard plaque at the distal common carotid arteries. Peak systolic and end diastolic [place] values and the ICA/CCA ratios are in the non-hemodynamically significant range. Antegrade flow seen in both vertebral arteries. A complex cystic and solid mass is present in the right neck measures 5.1 x 3 cm. A smaller lesion me asuring 2 cm is noted. The right IJ is expanded and nearly completely thrombosed with only a trickle flow along the wall. IMPRESSION: 1. Mild hard and soft plaque near the carotid bifurcations. No evidence of a hemodynami christy significant stenosis. 2. Neck CT is recommended for the complex cystic and solid masses in the right neck. 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
[2022-05-05] MEDS: ENOXAPARIN 40 MG/0.4 ML SQ SCH (08:23)
[2022-05-05] MEDS: ASPIRIN EC 81 MG TAB PO SCH (08:23)
[2022-05-05] MEDS: CLOPIDOGREL 75 MG TABLET PO SCH (08:24)
[2022-05-05] MEDS: CEFTRIAXONE 1,000 MG in NA CHLORIDE 0.9% 50 ML IVPB SCH ×2 (08:24→21:30)
[2022-05-05] MEDS: METOPROLOL TAR 25 MG TAB PO SCH ×2 (08:25→20:14)
[2022-05-05] MEDS: ENSURE HIGH PROTEIN 237 ML CAN PO SCH ×3 (08:25→20:26)
[2022-05-05] MEDS: ISOSORBIDE MONO SR 30 MG TAB PO SCH (08:25)
[2022-05-05] MEDS: AZITHROMYCIN IV 250 MG in NA CHLORIDE 0.9% 250 ML IVPB SCH (08:58)
--- NOTE | 2022-05-05 10:38 | RAD REPORT ---
EXAM DESCRIPTION: RAD - Chest Pa And Lat (2 Views) - 05/05/2022 10:29 am CLINICAL HISTORY: pneumonia COMPARISON: 05/03/2022 FINDINGS: Lines: None. Lungs: Mild opacities in the right and left mid lung and left lung base are similar. Pleural: No significant pleural effusions or pneumothorax. Cardiac: The heart size is within normal limits. Mediastinum: Within normal limits. Bones: No acute fractures. Other: None IMPRESSION: Similar aeration lungs compared with 05/03/2022 with scattered opacities that could refl ect pneumonia.
[2022-05-05] MEDS: ROSUVASTATIN 10 MG TAB PO SCH (20:14)
[2022-05-06 04:29] LABS: Absolute Lymphocytes (CBC) 1.3 K/uL (0.7-4.9); Hematocrit 32.8 % (36.0-45.0); Lymphocytes % 9.8 % (15.3-44.8); MPV 8.8 fL (7.6-11.3); RBC Red Blood Cell Count 3.73 M/uL (3.86-4.86)
[2022-05-06 04:33] LABS: Magnesium 1.7 mg/dL (1.8-2.4); Potassium 3.7 mmol/L (3.5-5.1)
[2022-05-06] MEDS: D5 0.9 NS 1,000 ML IV SCH ×3 (06:23→21:23)
[2022-05-06] MEDS ORDERED: CEFTRIAXONE 1000 MG/VIAL ONE (07:00)
[2022-05-06] MEDS ORDERED: NA CHLORIDE 0.9% 50 ML ONE (07:17)
[2022-05-06] MEDS: CEFTRIAXONE 1,000 MG in NA CHLORIDE 0.9% 50 ML IVPB SCH ×2 (07:41→21:23)
[2022-05-06] MEDS: ASPIRIN EC 81 MG TAB PO SCH (07:41)
[2022-05-06] MEDS: CLOPIDOGREL 75 MG TABLET PO SCH (07:42)
[2022-05-06] MEDS: ENOXAPARIN 40 MG/0.4 ML SQ SCH (07:42)
[2022-05-06] MEDS: ENSURE HIGH PROTEIN 237 ML CAN PO SCH ×3 (07:42→21:00)
[2022-05-06] MEDS: ISOSORBIDE MONO SR 30 MG TAB PO SCH (07:42)
[2022-05-06] MEDS: METOPROLOL TAR 25 MG TAB PO SCH ×2 (07:43→21:20)
--- NOTE | 2022-05-06 08:37 | PN ---
Date of Progress Note: 05/05/2022 Subjective: Patient was seen this morning for followup. She was lying in bed. Her was with her at bedside. Overall, she feels better. Denies any new complaints. No trouble swallowing. Objective: Vital Signs: Reviewed. HEENT: Unremarkable. Lungs: Clear to auscultation. Heart: Sounds normal. Abdomen: Soft. Bowel sounds normal. No guarding, rigidity, tenderness, or distention. Extremities: No leg edema. Neuro: Power in all the 4 extremities is normal and left upper extremity weakness has resolved now. Her speech is better also and it is easy to understand. Impression: 1.Stroke. 2.Hypertension. 3.Hyperlipidemia. Plan: Patient's carotid Doppler showed evidence of significant stenosis of right internal jugular ve in and this is likely to be chronic problem for her, which obviously she is not aware of it as I was trying to explain it to her. She goes to [facility] every 3 months. She has appointment coming up this coming Friday and we will provide her appropriate test results so she can take it with her to [facility]. She gets regular testing done at [facility], so I am sure that this is [facility] the previous testing at [facility], but we will definitely have her followup with them. This does not appear to be acute on basis of her symptomatology. We will continue current ant i-platelet therapy. Continue current antibiotic for pneumonia and urinary tract infection. Chest x- ray was repeated today, has not shown any significant change compared to before. Possible discharge to go [facility] tomorrow. RASHMI/MODL Voice ID: [id number] Report ID: [id number]
[2022-05-06] MEDS: AZITHROMYCIN IV 250 MG in NA CHLORIDE 0.9% 250 ML IVPB SCH (10:15)
[2022-05-06] MEDS: ROSUVASTATIN 10 MG TAB PO SCH (21:20)
--- NOTE | 2022-05-07 08:02 | ECHO ---
HEIGHT: 5 ft 4 in WEIGHT: 136 lb 15.924 oz DATE OF STUDY: 05/06/[address]: Carrington Arteaga MD 2-DIMENSIONAL: YES M.MODE: YES DOPPLER: YES COLOR FLOW: YES TDS: PORTABLE: YES DEFINITY: BUBBLE STUDY: DIAGNOSIS: STROKE CARDIAC HISTORY: CATHERIZATION: SURGERY: PROSTHETIC VALVE: PACEMAKER: MEASUREMENTS (cm) DIASTOLIC (NORMALS) SYSTOLIC (NORMALS) IVSd 0.9 (0.6-1.2) LA Diam 2.5 (1.9-4.0) LVEF 62% LVIDd 4.3 (3.5-5.7) LVIDs 2.9 (2.0-3.5) %FS 33% LVPWd 1.0 (0.6-1.2) Ao Diam 2.7 (2.0-3.7) 2 DIMENSIONAL ASSESSMENT: RIGHT ATRIUM: NORMAL LEFT ATRIUM: NORMAL RIGHT VENTRICLE: NORMAL LEFT VENTRICLE: NORMAL TRICUSPID VALVE: MILD TRICUSPID REGURGITATION MITRAL VALVE: MILD MITRAL REGURGIATION PULMONIC VALVE: NORMAL AORTIC VALVE: NORMAL PERICARDIAL EFFUSION: TRACE AORTIC ROOT: NORMAL LEFT VENTRICULAR WALL MOTION: NORMAL DOPPLER/COLOR FLOW: SEE BELOW COMMENTS: NORMAL LEFT VENTRICULAR EJECTION FRACTION 60-65%. NORMAL WALL MOTION. MILD TRICUSPID REGURGITATION. MILD MITRAL REGURGITATION. SMALL PERICARDIAL EFFUSION. TECHNOLOGIST: AZUL SHAVER
[2022-05-07 08:19] VITALS: BP 141/56; TEMP 97.4
[2022-05-07 09:19] VITALS: O2SAT 95
--- NOTE | 2022-05-07 10:18 | PN ---
Date of Progress Note: 05/06/2022 Subjective: Patient was seen this morning for followup. No new complaints or problems reported by jermaine sims. She was lying in bed, not in distress. Denies any new complaints. No headache, nausea, vom iting. No trouble swallowing. Objective: Vital Signs: Reviewed. HEENT: Unremarkable. Lungs: Clear to auscultation. Heart: Sounds normal. Abdomen: Soft. Bowel sounds normal. No guarding, rigidity, tenderness, distention. Extremities: No leg edema. Laboratory Data: White count 12.8, hemoglobin 10.7, platelets 246. Sodium 140, potassium 3.7, chlor maribel 108, bicarb 26, BUN 23, creatinine 0.71, glucose 86. Magnesium 1.7. Impression: 1.Stroke. 2.Anemia, unspecified. 3.Hypertension. 4.Hyperlipidemia. 5.Hypomagnesemia. 6.Pneumonia. 7.Urinary tract infection. Plan: Urine culture result is pending. We will continue current antibiotics. WBC count is improvin g. We will continue current aspirin and Plavix. Continue high-dose statin therapy. We are waiting on Speech Therapy consultation and echocardiogram will be done today. RASHMI/MODL Voice ID: [id number] Report ID: [id number]
--- NOTE | 2022-05-08 02:01 | DS ---
Date of Discharge: 05/07/2022 Disposition: Discharged to go home. Physical Examination: HEENT: Unremarkable. Lungs: Clear to auscultation. Heart: Sounds normal. Abdomen: Soft. Bowel sounds normal. No guarding, rigidity, tenderness, distention. Extremities: No leg edema. Neuro: Power in both upper and both lower extremities, normal and symmetrical. Speech is almost antoinette k to normal. No facial asymmetry. Discharge Medications And Instructions: Continue all prior home medications as below. 1.Aspirin 81 mg daily. 2.Famotidine 40 mg daily at bedtime. 3.Isosorbide mononitrate 30 mg daily. 4.Levothyroxine 75 mcg daily. 5.Magnesium oxide 400 mg 2 times a day. 6.Metoprolol 50 mg take half a tablet 2 times a day. 7.Nitrostat 1 tablet under tongue as needed for chest pain. Stop rosuvastatin 5 mg 2 times a week dose. Start following new medications: 1.Clopidogrel 75 mg daily. 2.Rosuvastatin 20 mg daily at bedtime. 3.Augmentin 500 mg 2 times a day with food for 1 week. 4.Follow up at my office on 05/09/2022. 5.Follow up at [facility] on 05/10/2022. Laboratory Data: Test results done during this hospitalization. Carotid Doppler shows mild plaquing . No evidence of hemodynamically significant stenotic lesion. The patient's right internal jugular vein is mostly thrombosed. The patient also has about 5.1 x 3 cm complex, the right neck. CAT scan of the brain done in the emergency room was negative for any acute changes. MRI of the brain showed acute non-hemorrhagic infarct in the right precentral gyrus motor cortex, 19 mm size. No midline christine ft. MRA of the head was negative for any significant flow abnormalities. MRA of the neck shows mode rate stenosis of the right carotid bulb 50-70 cm. Last chemistry yesterday, sodium 140, potassium 3.7, chloride 108, bicarb 26, BUN 23, creatinine 0.71 , glucose 129, magnesium 1.7. Initial troponin 95, second troponin 82, third troponin 81. Liver fun ction tests unremarkable. Initial white count upon admission 19.3, hemoglobin 12.9, platelets 260. Last white count yesterday 12.8, hemoglobin 10.7, platelets 246. Hospital Course: This is a 81-year-old pleasant female patient, admitted to the hospital with stroke symptoms. Please see dictated H and P for more information. After patient was evaluated in the ER, she was admitted to the hospital. Her symptoms started day prior to presentation to the hospital em ergency room, so she was out of window for any thrombolytic therapy. After initial evaluation in the ER, she was admitted to the hospital. Patient takes aspirin 81 mg daily at home, so Plavix was adde d. We also started her on high dose statin therapy. Neurology consultation was requested from Dr. Talat zabala. Physical Therapy, Occupational Therapy, and Speech Therapies were requested to evaluate the patient. After the patient passed a bedside swallowing evaluation, diet was started. Overall, her condition improved. Her slurred speech has improved and weakness of the left upper extremity has res olved. When I saw her this morning, she informed me that the Speech Therapy still had not seen her b ecause there was no speech therapist available at the hospital and the patient's neurological symptom s have improved, so there is no reason for ongoing hospitalization. She has appointment at [facility] on this week on Friday and I have advised her to come see me at office on and I will provide her a copy of carotid Doppler, CAT scan of the head, MRI of brain, and MRA of neck, and brain test r esults to take it to [facility]. Right neck mass and thrombosed right internal jugular vein, I susp ect that this is not a new finding and I am sure that this findings probably better observed at [facility] on prior testing, but she will take all this results to [facility] where she gets frequent te sting done to see if any further intervention is needed or not. The patient was discharged to [facility] in stable condition today. She was treated with antibiotic for pneumonia and urinary tract infecti on. Urine culture result was still pending as of this morning. Blood culture remained negative. Final Diagnoses: 1.Stroke. 2.Right carotid artery stenosis. 3.Thrombosis of right internal jugular vein. 4.Hypokalemia. 5.Hypomagnesemia. 6.Anemia, unspecified. 7.Hypertension. 8.Hyperlipidemia. RASHMI/MODL Voice ID: [id number] Report ID: [id number]
== END 2022-05-07 09:31 | disposition home health service (06) | DRG 64 ==
LOC: ER 07:27 → ERHOLD 13:40 → 2ND 14:55
PROVIDERS: ADMIT Internal Medicine; ATTEND Internal Medicine
DX: I63.9 Cerebral infarction, unspecified (principal); J18.9 Pneumonia, unspecified organism; G81.94 Hemiplegia, unspecified affecting left nondominant side; N39.0 Urinary tract infection, site not specified; I12.9 Hypertensive chronic kidney disease with stage 1 through stage 4 chronic kidney disease, or unspecified chronic kidney disease; N18.31 Chronic kidney disease, stage 3a; E11.22 Type 2 diabetes mellitus with diabetic chronic kidney disease; E11.42 Type 2 diabetes mellitus with diabetic polyneuropathy; I25.10 Atherosclerotic heart disease of native coronary artery without angina pectoris; E03.9 Hypothyroidism, unspecified; E78.2 Mixed hyperlipidemia; D64.9 Anemia, unspecified; E83.42 Hypomagnesemia; K21.9 Gastro-esophageal reflux disease without esophagitis; I65.21 Occlusion and stenosis of right carotid artery; R77.8 Other specified abnormalities of plasma proteins; R47.81 Slurred speech; Z88.5 Allergy status to narcotic agent; Z88.8 Allergy status to other drugs, medicaments and biological substances; Z86.73 Personal history of transient ischemic attack (TIA), and cerebral infarction without residual deficits; Z79.01 Long term (current) use of anticoagulants; Z79.82 Long term (current) use of aspirin; Z86.16 Personal history of COVID-19; Z79.890 Hormone replacement therapy; Z79.899 Other long term (current) drug therapy; Z90.710 Acquired absence of both cervix and uterus; Z20.822 Contact with and (suspected) exposure to COVID-19
CPT/HCPCS: 36415; 70450; 70544; 70549; 70553; 71045; 71046; 80048; 80061; 80076; 81003; 81015; 82947; 83735; 83880; 84484; 85025; 85610; 85730; 87040; 87086; 87088; 87804; 87811; 93005; 93306; 93880; 94760; 96374; 96375; 97161; 99284; A9577; J0456; J1650; J7042; J7050

== ENCOUNTER 2022-05-16 08:59 | Inpatient (IN) | payer OTHER ==
--- OUTSIDE RECORDS SUMMARY | 2022-05-16 09:05 | XMS REPORT | Clinical Summary ---
:1940 Author Organization [facility] MD [facility] Address [address] [place] [address] Care Team Providers Name Role Phone Opal [...] mg MOUTH TWO TIMES tablet A WEEK traMADol (Ultram) 50 Take 1 tablet 30 tablet 0 02/16/20212 3/2 Discontinued mg (50 mg) by mouth 022 tabletIndications: every 6 (six) Squamous cell hours as needed carcinoma of tongue for moderate pain. 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 Not stageable. If not recurre nt would be N1 Pre op cardiovascular examination 09/09/2018 Overview: Follows with Dr Alejandro # [phone]. Last seen while hospitalized for urosepsis and 1-2 weeks after discharge. 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 Cancer Staging: Pathologic stage from : Stage II (ypT2, pN0, cM0) - Signed by MELANIE Parada on 11/12/2017 Overview: Added automatically from request for erica solomon [id number] Personal history of melanoma of skin 06/03/2016 [...] 04/10/2022 Orders Only Radiation Oncology Tara Brennan s MELANIE Farooq carcinoma of to ngue (Primary Dx) 02/12/2022 Orders Only Dental Oncology Kimitedcarla, Squamous katharine l Miya, DDS carcinoma of to [...] MD 12/07/2021 Hospital Encounter Proton Therapy Lorna Davey Squ amous cell PA carcinoma of tongue Faraz Luna MD 12/07/2021 Travel 12/06/2021 Ancillary Procedure Radiology Lorna Davey Squa mous cell PA carcinoma of to ngue 12/06/2021 Hospital Encounter Radiation Oncology Lorna Davey, Squamous cell PA carcinoma of tongue Faraz Luna MD 12/06/2021 Documentation Radiation Oncology Faraz Luna MD 12/06/2021 Documentation Radiation Oncology Faraz Luna MD 12/06/2021 Travel 12/05/2021 Clinical Support Covid Lorna Davey, Suspect ed COVID-19 (Primary Dx); PA Squamous cell carcinoma of tongue Ursula Da Silva, RN 12/05/2021 Travel 12/03/2021 Orders Only Radiation Oncology Meme Watts, SUMAN 11/30/2021 Orders Only Radiology David Amezcua PA 11/30/2021 Orders Only Radiation Oncology Lorna Davey Squam ous cell PA carcinoma of to ngue (Primary Dx) 11/30/2021 Orders Only Radiation Oncology Geo Mcknight RN 11/30/2021 Orders Only Radiation Oncology Chikis Stanley RN 11/26/2021 Hospital Encounter Head and Neck Opal Ly [place] stasis to head Surgery MD Lexii and neck lymph node 11/26/2021 Travel 11/10/2021 Orders Only Head and Neck Willem Peralta Metastasis to head Surgery MD Kennedy and neck lymph node (Primary Dx) 11/10/2021 Orders Only Head and Neck Solitario, Metastasis to head Surgery MD Keith and [...] for Surgery Head and Neck Ana Bradford Metasta sis to head and neck lymph [...] Personal histor y of irradiation; Lesion of johan e 10/22/2021 Travel 10/17/2021 Hospital Encounter Radiology [...] 08/13/2021 Travel 08/10/2021 Hospital Encounter Dental Oncology Issace, Primar y squamous cell carcinoma of palatine tonsil (Primary Dx); MAGDALENA Holliday Personal histor y of melanoma of skin; Secondary and u nspecified 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, face and neck; Other acquired deformity of head; History of [place] nstruction of oral cavity; Trismus; Painful mouth; Xerostomia; Partial loss of teeth, not otherwise specified; Accretion on te 08/10/2021 Telephone Dental Oncology Sherice Lopez Patient was seen in [place], RN the dental clin ic by Dr. Oscar merchant 08/10/2021 Travel 08/09/2021 Hospital Encounter Radiation Oncology Faraz Luna MD S quamous cell carcinoma of to ngue 08/09/2021 Clinical Support Opal Pineda Suspect ed NANCY hSultz MD (Primary Dx) Saba Quezada MA 08/09/2021 Hospital Encounter Radiology Lorna Davey Squam ous cell PA carcinoma of to ngue 08/09/2021 Hospital Encounter Lab Lorna Davey Squam ous cell PA carcinoma of to ngue 08/09/2021 Travel 07/23/2021 Orders Only Head and Neck Laurita, Personal histo ry of Surgery MELANIE Calderon melanoma of sk in (Primary Dx) 07/18/2021 Orders Only Dental Oncology [place], Primary sq uamous Mónica Amador, DDS cell carcinoma of palatine tonsil (Primary Dx) 07/17/2021 Hospital Encounter Dental Oncology Christiano, 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); Mónica Amador, DDS Primary squamou s cell carcinoma of [...] MD 06/08/2021 Orders Only Radiation Oncology Lorna Davey, Elo ous cell PA carcinoma of to ngue [...] Proton Therapy Opal Ly MD 05/16/2021 Travel after 05/16/2021 Immunizations Name Administration Dates Next Due Pfizer SARS-CoV-2 Vaccination (Purple Cap) 02/25/2021, 01/18 Surgical History Surgery Date Site/Laterality Comments HYSTERECTOMY 07/21/1969 - 07/20/1970 LA PART REMOVAL 09/24/2017 Mouth/Right Procedure: GLOSS ECTOMY - TONGUE,<1/2 LESS THAN 1/2 OF TONGUE; Surgeon: Opal Ly MD; Location: MAIN OR; Service : HN - HEAD & NECK SURG SOY LA TONGUE AND MOUTH SURG 09/24/2017 Right Procedu re: LASER ABLATION UNLISTED OF ORAL CAVITY; Surgeon: Opal zamarripa MD; Location: MAIN O R; Service: HN - HE AD & NECK SURGERY LA REMOVAL NODES, 09/24/2017 Right Procedure: LEV EL II-III NECK,CERV MOD RAD NECK DISSECTIO N; Surgeon: Opal zamarripa MD; Location: MAIN O R; Service: HN - HE AD & NECK SURGERY LA NEUROENDOSCOP,W/EXCISE 09/24/2017 N/A Proced ure: 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 LA SUB GRFT 09/11/2018 Right Procedure: APPLI CATION OF F/S/N/H/F/G/M/D /<100SCM SKIN RANDHAWA BSTITUTE GRAFT TO /<1ST 25 SCM MOUTH - Integra 2x2; Surgeon: Opal Ly MD; Location: MAIN OR; Service : HN - HEAD & NECK SURG SOY Medical devices from this surgery are in t he Medical Devices section. LA DENTAL SURGERY 09/11/2018 Mouth/Right Procedure: DEN ALEXUS PROCEDURE EXTRACTION(S); S urgeon: Opal zamarripa MD; Location: MAIN O R; Service: HN - HE AD & NECK SURGERY Medical devices from this surgery are in t he Medical Devices section. LA TONGUE AND MOUTH SURG 02/16/2021 Mouth/Bilateral Procedu re: LASER ABLATION UNLISTED OF ORAL CAVITY; Surgeon: Opal zamarripa MD; Location: MAIN O R; Service: HN - HE AD & NECK SURGERY Medical devices from this surgery are in t he Medical Devices section. LA SUB GRFT 02/16/2021 Mouth/Right Procedure: APPLI CATION OF F/S/N/H/F/G/M/D /<100SCM SKIN RANDHAWA BSTITUTE GRAFT TO /<1ST 25 SCM MOUTH; Surgeon: Opal Ly MD; Location: MAIN OR; Service : HN - HEAD & NECK SURG SOY Medical devices from this surgery are in t he Medical Devices section. LA EXCIS MOUTH 02/16/2021 Mouth/Right Procedure: WLE o f alveolar MUCOSA/SUB,NO REPAIR ridge; Surg miguel: Opal Ly MD; Location: MAIN OR; Service : HN - HEAD & NECK SURG SOY Medical devices from this surgery are in t he Medical Devices section. LA REMV UPPER 02/16/2021 Mouth/Right Procedure: MAXIL LECTOMY, JAW-MAXILLECTOMY WITHOUT ORBITAL EXTENERATION; Randhawa rgeon: Lexii Ventura; Location: MAIN O R; Service: HN - HE AD & NECK SURGERY Medical devices from this surgery are in t he Medical Devices section. LA PREP FACE/ORAL PROST 02/16/2021 Mouth/Bilateral Procedur e: TAKING ORAL SPLINT IMPRESSION FOR O RAL SURGICAL SPLINT AND CUSTOM PREPARATION OF S PLINT; Surgeon: Avtar Morrissey DMD; Location[facility]; Service: ORAL ON COLOGY & MAXILLOFACIAL PROSTHODONTICS Medical devices from this surgery are in t he Medical Devices section. LA REMOVAL NODES, 11/09/2021 Neck/Right Procedure: LEV EL [...] level of school you have High school gra duate 02/14/2021 completed or the highest degree you have received? Sex Assigned at Date Recorded Female 05/24/2019 3:07 PM [employer] Job Start Date Occupation Industry Not on [...] Treatment Date Type Specialty Care Team Description 05/20/2022 Appointment Lab Lorna Davey PA [address], [place] [address] (Wo rk) 05/20/2022 Ancillary Procedure Radiology Milady Davey PA [address], [place] [address] (Wo rk) 05/20/2022 Appointment Head and Neck Surgery Opal Ly MD [address] [place], [place] [address] (Wo rk) Health Maintenance Due Date Last Done Comments COVID-19 Vaccination (3 - Pfizer risk 03/25/2021 02/25/2021 , 02/02/2021 series) Medical Devices Implanted Type Area Cylinder Filler Device Shelf Model / Identifier Expiration Serial / Date Lot Bilayer Wound Dressing 2?X2? - [id number] Skin/Tis Right: Soft INTE GRA 05/20/2021 BMW-2020 / Implanted: Qty: 1 on 09/11/2018 by Opal Ly MD at [facility] Palate [employer] / SURG [id number] Bilayer Wound Dressing 2in X 2 In - [id number] Skin/Tis Right: INTEGRA 05/20/2022 W / Implanted: Qty: 1 on 02/16/2021 by Opal Ly MD at [facility] [place] [employer] / SURG [id number] Procedures Procedure Name Priority Date/Time Associated Comments [...] 19 Results for this PCR-ASYMPTOMATIC MC AM [employer] procedur e are in the results section. CT SOFT TISSUE NECK W Routine 08/09/2021 8:21 Squamous cell Re sults for this CONTRAST AM [employer] carcinoma of tongue procedur e are in the results section. POC CREATININE Routine 08/09/2021 7:33 Results fo r this AM [employer] procedure are i n the results section. .GLOMERULAR FILTRATION Routine 08/09/2021 6:50 Squamous cell R esults for this RATE AM [employer] carcinoma of tongue procedur e are in the results section. SERUM CREATININE Routine 08/09/2021 6:50 Squamous cell Results for this AM [employer] carcinoma of tongue procedur e are in the results section. SERUM CREATININE Routine 08/09/2021 6:50 Squamous cell AM [employer] carcinoma of tongue BLOOD UREA NITROGEN Routine 08/09/2021 6:50 Squamous cell Resu lts for this AM [employer] carcinoma of tongue procedur e are in the results section. FREE THYROXINE Routine 08/09/2021 6:50 Squamous cell Results f or this AM [employer] carcinoma of tongue procedur e are in the results section. THYROID STIMULATING Routine 08/09/2021 6:50 Squamous cell Resu lts for this HORMONE AM [employer] carcinoma of tongue procedur e are in the results section. COVID-19 Routine 07/16/2021 12:04 Suspected COVID-19 Resul ts for this (SARS-COV-2) PCR PM [employer] procedure a re in ASYMPTOMATIC the results section. after 05/16/2021 Results MRI Head/Neck Simulation with and without [...] Center POC TELCOR Comment: Proton Therapy Center [facility], [address], [place], [place] [address]; Point of Care Insurance Law Specialist: Latosha Hurley MD Specimen Anatomical Collection Method [...] lesion. Other pertinent findings: None. Procedure Note Butters, MD Allyson - 12/08/2021 FULL RESULT: Examination: [...] Signature COVID19 SARS Pre-Radiation [place] Indication Therapy [facility] COVID19 SARS Not Detected Not [place] Result Detected [facility] COVID19 SARS SARS-CoV-2 NOT Detected. [place] Interpretation [facility] Reference Range: Not Detected [facility] Methodology: The [employer] Real Time SARS-CoV-2 assay is a qualitative real-time reverse supervisor dials polymerase chain reaction (director of coding-PCR) test to detect RNA from SARS-CoV-2 in nasal, nasopharyngeal and oropharyngeal swabs from patients with signs and symptoms of infection who ar e suspected of COVID-19 by their health care provider. The [employer] RealTime SARS-CoV-2 performed on the [employer]000 System is a dual target assay with [...] sole basis for patient management decisions. The [employer] RealTime SARS-CoV -2 assay is for in vitro diagnostic use under FDA Emergency Use Authorization only. Testing is limited to laboratories certified under the Clinical Laboratory Improvement Rita ndments of 1988 (CLIA), 42U.S.C. 263a, to perform high complexity tests. The T est was performed by the CLIA-certified, high- complexity Molecular Diagnostics Laboratory (MDL) at [facility] under the Food and Drug Administration (FDA) s Emergency Use Authorization. Factsheet for patients: https://www.f4samurainderson.org/AbbottFac tSheetPatients Factsheet for healthcare pro viders: https://www.mdanderson.org/AbbottFactSheetHCP Test performed by: The [facility] Molecular Diagnostic Lab [address] [place] [address] Specimen (Source) Anatomical Collection Method Collection Time Re ceived Time Location / / Volume Laterality Nasopharyngeal Swab 12/05/2021 1:43 12/05 PM CDT 3:07 PM CDT Faraz Luna MD MICROBIOLOGY - GENERAL ORDER GARY Performing Organization Address City/State/ZIP Code Phon e Number [facility] Unless otherwise noted, [place] [address] [place] all lab tests performed by: Division of Pathology and Laboratory Medicine [address] [facility] Pathology Surgical Interpretation (11/09/2021 3:41 PM CDT) Component Value Ref Test Analysis Performed Pathologis t Range Method Time At Signature Submitted 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 CDT Jess Two lymph nodes, negative for tumor MD Gregorio on See comment 2 at 10:37 PM SHABANA/FASMeño Comment The main mass 11/14/2021 [facility] likely represents 10:37 PM a completely CDT replaced lymph node with gross extranodal extension including to surround nerve bundles. Gross A: 11/14/2021 [facility] Description Neck, right, right neck diss ection level 5a---cd19--irmtrbmrl : Consists of an unoriented portion of [...] lymph node bisected in each cassette; A5-6, sales training representative sections from largest grossly positive lymph node. ES Disclaimer "Some tests 11/14/2021 [facility] reported here may 10:37 PM have been CDT developed and performance characteristics determined by [facility] Pathology and Laboratory Medicine. [...] MD LAB PATHOLOGY ORDERABLES Performing Organization Address City/State/[facility] Code Phon e Number [facility] [place] [address] [address] [facility] Clot Expiration Date (11/09/2021 1:50 PM CDT) [facility] gist Method Time Signature T & S 11/12/2021 [facility] Specimen Anatomical Collection Method Collection Time Receive d Time (Source) Location / / Volume Laterality Blood 11/09/2021 1:50 PM 2 2:03 CDT PM CDT Tremaine Felder MD BLOOD BANK TEST ORDERABLES Performing Organization Address City/State/[facility] Code Phon e Number [facility] Unless otherwise noted, [place] [address] CENTER all lab tests performed by: Division of Pathology and Laboratory Medicine [address] [place] TMP Interpretation Antibody Screen Negative (11/09/2021 1:50 PM CDT) [facility] gist Method Time Signature TMP Auto Neg At the [place] MD ABSC Interp present ALLIE time, CANCER CENTER patient plasma shows no evidence of RBC alloantibodi es. Comment: STAN MARCUS MD, PhD - [id number] Dictated by: STAN MARCUS MD, Ph D - [id number] Dictated Date/Time: 11.09.2021 16:59 PM CDT Transcribed Date/Time: 11.09.2021 16:59 PM CDT Electronically Signed By: STAN MARCUS MD, PhD - [id number] on 11.09.2021 16:59 PM Specimen Anatomical Collection Method Collection Time Receive d Time (Source) Location / / Volume Laterality Blood 11/09/2021 1:50 PM 2 2:03 CDT PM CDT Tremaine Felder MD BLOOD BANK TEST ORDERABLES Performing Organization Address City/State/ZIP Code Phon e Number [facility] Unless otherwise noted, [address] all lab tests performed by: Division of Pathology and Laboratory Medicine [facility]5 Mikaela Molina ABORh (11/09/2021 1:50 PM CDT) P athologist Signature ABORh. O POS [facility] Specimen Anatomical Collection Method Collection Time Receive d Time (Source) Location / / Volume Laterality Blood 11/09/2021 1:50 PM 2 2:03 CDT PM CDT Tremaine Felder MD BLOOD BANK TEST ORDERABLES Performing Organization Address City/State/[facility] Phon e Number [facility] Unless otherwise noted, [address] all lab tests performed by: Division of Pathology and Laboratory Medicine [facility] [place] Antibody Screen (11/09/2021 1:50 PM CDT) P athologist Signature ABSC. Negative ABSC [facility] Specimen Anatomical Collection Method Collection Time Receive d Time (Source) Location / / Volume Laterality Blood 11/09/2021 1:50 PM 2 2:03 CDT PM CDT Tremaine Felder MD BLOOD BANK TEST ORDERABLES Performing Organization Address City/[facility]/ZIP Code Phon e Number [facility] Unless otherwise noted, [place] [address] CENTER all lab tests performed by: Division of Pathology and Laboratory Medicine [address] [place] [address] (ABNORMAL) POC Glucose Screen (11/09/2021 11:01 AM [...] Sample Type Capillary POC TELCOR Performing Lab [facility] POC TELCO R Comment: [facility] Clinical Lab, [address] [place] [address], [place] [address]; Lab Direct or: Rebeka Cao MD Specimen Anatomical Collection Method Collection Time Receive d Time (Source) Location / / Volume Laterality Blood 11/09/2021 11:01 11/09/2021 AM CDT 11:01 AM CDT Opal Ly MD POCT ORDERABLES - DEVICE Performing Organization Address City/[facility]/ZIP Code Phon e Number POC TELCOR Glucose, Random (11/06/2021 3:13 PM CDT) athologist Signature Glucose Random 105 70 - 199 [facility] mg/dL CANCER CENTER Comment: Effective 02/14/16, the glucose reference intervals have been updated based on [place] Diabetes Association guidelines (Standards of Medical Care [...] CALVERTN LAB BLOOD ORDERABLES Performing Organization Address City/[facility]/ZIP [facility] Phon e Number [facility] Unless otherwise noted, [address] all lab tests performed by: Division of Pathology and Laboratory Medicine [address] [place] [address] (ABNORMAL) .Serum Creatinine (11/06/2021 3:13 PM CDT)Only the most recent of3 resultswithin the time period is included. athologist Signature Creatinine 0.97 (H) 0.51 - 0.95 [facility] mg/dL [facility] Specimen Anatomical Collection Method Collection Time Receive d Time (Source) Location / / Volume Laterality Blood 11/06/2021 3:13 PM 2 3:42 CDT PM CDT Prakash Newell [employer]AW [employer]IM RAISER OPERATOR LAB BLOOD ORDERABLES Performing Organization Address City/[facility] Phon e Number [facility] Unless otherwise noted, [address] all lab tests performed by: Division of Pathology and Laboratory Medicine [address] [place] [address] .CBC (11/06/2021 3:13 PM CDT) athologist Signature WBC 8.3 4.0 - 11.0 [facility] K/[facility] RBC 4.57 4.00 - [facility] 5.50 M/uL [facility] Hgb 13.4 12.0 - [facility] 16.0 gm/dL CANCER CENTER Hct 41.1 37.0 - [facility] 47.0 % CANCER CENTER MCV 90 82 - 98 fL [facility] MCH 29.3 27.0 - [facility] 31.0 pg [facility] MCHC 32.6 31.0 - [facility] 36.0 gm/dL [facility] RDW-SD 44.6 35.1 - [facility] 46.3 fL [facility] RDW-CV 13.6 12.0 - [facility] 15.5 % [facility] CENTER Platelet count 282 140 - 440 [facility] K/uL CANCER CENTER MPV 9.8 4.0 - 10.4 [facility] CANCER CENTER INRBC 0.0 <=0.0 % [facility] Comment: The INRBC (instrument NRBC) value reflec [...] Organization Address City/State/ZIP Code Phon e Number [facility] Unless otherwise noted, [place] [address] [place] all lab tests performed by: Division of Pathology and Laboratory Medicine [address] [place] (ABNORMAL) Glomerular Filtration Rate (11/06/2021 3:13 PM CDT)Only the most recent of3 resultswithin the time period is included. P athologist Signature eGFR-AA 65 >=60 [facility] mL/min/1.73 [facility] sq. m Comment: Normal eGFR: >= 60 [...] eGFR-IMELDA 56 (L) >=60 mL/min/1.73 sq. m [place] MD Kellie [facility] Comment: Normal eGFR: >= 60 mL/min/1.73 m2 [...] Organization Address City/State/ZIP Code Phon e Number [facility] Unless otherwise noted, [place] [address] [place] all lab tests performed by: Division of Pathology and Laboratory Medicine [address] [place] Differential (11/06/2021 3:13 PM CDT) athologist Signature Neutrophil % 60.6 42.0 - 66.0 [facility] Lymphocyte % 30.6 24.0 - 44.0 [facility] Monocyte % 6.3 2.0 - 7.0 % [facility] Eosinophil % 1.8 1.0 - 4.0 % [facility] Basophil % 0.5 0.0 - 1.0 % [facility] IGRE % 0.2 0.0 - 0.4 % [facility] Comment: IGRE % count includes Metamyelo cytes, Myelocytes, and Promyelocytes. Neutrophil Abs 5.03 1.70 - 7.30 K/uL [facility] Lymphocyte Abs 2.54 1.00 - 4.80 K/uL [facility] Monocyte Abs 0.52 0.08 - 0.70 K/uL [place] MD PATINO [facility] Eosinophil Abs 0.15 0.04 - 0.40 K/uL [facility] Basophil Abs 0.04 0.00 - 0.10 K/uL [place] MD SUKUMAR [facility] IG Abs 0.02 0.00 - 0.04 K/uL [place] MD SAHIL Morgan [facility] Specimen Anatomical Collection Method Collection Time Receive d Time (Source) Location / / Volume Laterality Blood 11/06/2021 3:13 PM 2 3:25 CDT PM CDT Prakash Newell APN LAB BLOOD ORDERABLES Performing Organization Address City/[facility]/ZIP Code Phon e Number [facility] Unless otherwise noted, [address] all lab tests performed by: Division of Pathology and Laboratory Medicine [address] [place] [address] BUN (11/06/2021 3:13 PM CDT)Only the most recent of3 resultswithin the time period is included. athologist Signature BUN 21 6 - 23 [facility] mg/dL [facility] CENTER Specimen Anatomical Collection Method Collection Time Receive d Time (Source) Location / / Volume Laterality Blood 11/06/2021 3:13 PM 2 3:42 CDT PM CDT Prakash Newell DON LAB BLOOD ORDERABLES Performing Organization Address City/[facility]/ZIP [facility] Phon e Number [facility] Unless otherwise noted, [address] all lab tests performed by: Division of Pathology and Laboratory Medicine [address] [place] [address] Hemoglobin A1c (11/06/2021 3:13 PM CDT) athologist Signature A1C 5.6 4.3 - 5.6 % [facility] Comment: HbA1c values >=6.5% are diagnostic of di abetes mellitus. Diagnosis should be confirmed by repeat testing. Therapeutic Action suggested: >8.0% HbA1 c; Goal of therapy: <7.0% HbA1c Specimen Anatomical Collection Method Collection Time Receive d Time (Source) Location / / Volume Laterality Blood 11/06/2021 3:13 PM 2 3:40 CDT PM CDT Prakash Newell DON LAB BLOOD ORDERABLES Performing Organization Address City/State/ZIP Code Phon e Number [facility] Unless otherwise noted, [address] all lab tests performed by: Division of Pathology and Laboratory Medicine [address] [place] [address] Electrolyte Panel (11/06/2021 3:13 PM CDT) P athologist Signature Sodium Lvl 138 136 - 145 [facility] mEq/L [facility] Potassium Lvl 4.2 3.5 - 5.1 [facility] mEq/L [facility] Chloride 101 98 - 107 [facility] mEq/L [facility] CO2 25 22 - 29 [facility] mEq/L [facility] Anion Gap 12 4 - 14 [facility] mEq/L [facility] Specimen Anatomical Collection Method Collection Time Receive d Time (Source) Location / / Volume Laterality Blood 11/06/2021 3:13 PM 2 3:42 CDT PM CDT Prakash Newell APN LAB BLOOD ORDERABLES Performing Organization Address City/State/ZIP Code Phon e Number [facility] Unless otherwise noted, [place], [place] [id number] [place] [address] all lab tests performed by: Division of Pathology and Laboratory Medicine [address] [place] Fine Needle Aspiration (10/24/2021 11:10 AM [...] Method Time At Signature Gross A: 10/26/2021 [facility] Description Specimens procured: 11:17 AM 2 Diff Quik; 8 Pap Stain Slides CDT 20 ml, slightly cloudy slightly bloody fluid in RPMI 1 Cell Block Date/Time Placed in Formalin: 10/24/21 1:06 PM Size: 1.6 x 1.1 x 0.9 cm Immediate assessment for specimen adequacy was made x2 by Dr Libertad Brownlee. Immediate Adequate 10/26/2021 [facility] Assessment cellularity, 11:17 AM favor malignant CDT Major MALIGNANT (A) 10/26/2021 [facility] Zeina ctronically Classification 11:17 AM sofía d by Kenn Brownlee MD on 10/26/2021 a t 11:17 AM Diagnosis A. Lymph node, right posterior superior neck, fine needle aspiration: 10/26/2021 [facility] Electronically 11:17 AM signed by Kenn METASTATIC SQUAMOUS CELL CARCINOMA ISABEL Brownlee MD on 10/26/2021 a t 11:17 AM Comment An immunostain 10/26/2021 [facility] with an 11:17 AM appropriate CDT control, performed on the cell block preparation, show tumor cells to be positive for P40. This is supportive of the above diagnosis. Retained/Biomark SR: 10 S, 1 IP, 2 CB 10/26/2021 [facility] er Testing 11:17 AM Biomarker Testing: CDT MDL Cell Block: <50 MDL Pap: No MDL DQ: No FISH DQ: No Informational Some tests 10/26/2021 [facility] Points reported here may 11:17 AM have been CDT developed and performance characteristics determined by [facility] Pathology and Laboratory Medicine. [...] Code Phon [place] [address] [id number] [facility] TSH (10/17/2021 1:08 PM CDT)Only the most recent of2 resultswithin the time period is included. athologist Signature TSH 1.54 0.27 - 4.20 [facility] mcunit/mL [facility] Specimen Anatomical Collection Method Collection Time Receive d Time (Source) Location / / Volume Laterality Blood 10/17/2021 1:08 PM 2 1:59 CDT PM CDT Ana NAVARRO LAB BLOOD ORDERABLES Performing Organization Address City/[facility]/ZIP Code Phon e Number [facility] Unless otherwise noted, [address] all lab tests performed by: Division of Pathology and Laboratory Medicine [address] [place] [address] Free T4 (10/17/2021 1:08 PM CDT)Only the most recent of2 resultswithin the time period is included. athologist Signature T4 Free 1.70 0.93 - 1.70 [facility] ng/dL [facility] Specimen Anatomical Collection Method Collection Time Receive d Time (Source) Location / / Volume Laterality Blood 10/17/2021 1:08 PM 2 1:59 CDT PM CDT Ana NAVARRO LAB BLOOD ORDERABLES Performing Organization Address City/State/ZIP Code Phon e Number [facility] Unless otherwise noted, [address] all lab tests performed by: Division of Pathology and Laboratory Medicine [address] [place] [address] COVID-19 (SARS-CoV-2) PCR-Asymptomatic [facility] (08/09/2021 8:49 AM 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 A fact sheet for patients provided by the lifter/driver ( [employer]) can be rev iewed at: https://www.fda.gov/media/772324/downloa d. A fact sheet for Health Care providers is provided by the lifter/driver ([employer]) and can be reviewed at: https://www.fda.gov/media/191835/download Results must be interpreted within the c [...] were verified by the Microbiology Laboratory at [facility], CLIA Accreditation #: [id number] and CAP Accreditation #: [id number]. COVID19 SARS Source [employer] OPERATOR [place] MD PATINO [facility] COVID19 SARS Indication Pre-Out of OR Procedure [facility] Specimen (Source) Anatomical Collection Method Collection Time Re ceived Time Location / / Volume Laterality Nasopharyngeal Swab 08/09/2021 8:49 08/09 AM W[employer]ANT REPAIRER 11:16 AM W[employer] TRE[employer] PLANT REPAIRER Miya Matos DDS MICROBIOLOGY - GENERAL ORDER GARY Performing Organization Address City/State/ZIP Code Phon e Number [facility] Unless otherwise noted, [place] [address] [address] all lab tests performed by: Division of Pathology and Laboratory Medicine [address] [place] [address] after 05/16/2021 Insurance Payer Benefit Plan / Subscriber ID Effective Dates Phone Addre ss Type Group AETNA MEDICARE AETNA MEDICARE [id number] 2021-Presen [address] [place] [address] ([place]) [place] [id number] Connie Arango Personal/Family Self [address] (Home) [place] [id number] Connie Arango Personal/Family Self [address] ([place]) [place] [id number] [phone] [place] [address] (Work) [id number] Advance Directives Code Status Date Activated Date Inactivated Comments Full Code 11/09/2021 8:02 PM 11/10/2021 2:46 PM Full Code 02/16/2021 7:41 PM 02/17/2021 12:12 PM Full Code 09/11/2018 9:11 AM 09/12/2018 4:09 PM Full Code 09/24/2017 1:22 PM 09/25/2017 4:14 PM Care Teams Music 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
--- OUTSIDE RECORDS SUMMARY | 2022-05-16 09:11 | XMS REPORT | Continuity of Care Document ---
:1940 Author Organization [facility] t Address [address] [place] [address] [address] [place] [address] Care Team Providers Name Role Phone Malachi BARRAZA, Luis Miguel Shultz Primary Care Physician SYSTEM, PROVIDER NOT IN Attending Clinician Unavailable Mika NAVARRO, Tara Julio Attending Clinician Carlo NICHOLS, Miya Attending Clinician Lorna Mchugh Attending Clinician Luis Miguel Ly MD Attending Clinician Faraz Burns MD Attending Clinician Jeff Stapleton MD Attending Clinician Bayron Burton MD Attending Clinician Von BARRAZA, Ameena Ruiz Attending Clinician Ursula Da Silva RN Attending Clinician Unavailable Meme Watts RN Attending Clinician David Leonardo Attending Clinician Roxanna WILL, Geo Wall Attending Clinician Unavailable Lizeth WILL, Chikis Attending Clinician Unavailable Willem Peralta MD Attending Clinician Keith Solitario MD Attending Clinician Unavailable Tremaine Quinn MD Attending Clinician Leidy Flanagan CRNA Attending Clinician [phone] Mark CHACON, Gabby Porsche Attending Clinician Unavailable Prakash Newell APN Attending Clinician Naresh Jewell Attending Clinician Phani WILL, Sophia Attending Clinician Unavailable Jessica WILL, Sherice Morrell Attending Clinician Saba Quezada MA Attending Clinician Unavailable Peter Day Attending Clinician Christiano NICHOLS, Mónica Amador Attending Clinician [phone] Gregorio WILL, Melita Hopkins Attending Clinician Kirstie BARRAZA, Mary Attending Clinician [phone] Sofi ISSA, Mayela Attending Clinician FARAZ BURNS Attending Clinician Unavailable MIYA MATOS Attending Clinician Unavailable JUAN LUIS TYLER Attending Clinician Unavailable ADAMS CORTEZ Attending Clinician Unavailable LUIS MIGUEL LY Attending Clinician Unavailable KHLOE BENOIT Attending Clinician Unavailable NARESH BRADFORD Attending Clinician Unavailable REJI FORD Attending Clinician [...] of gum of gum note might be Jose different n from the Cancer original. Center Added automatic ally from request for surgery [id number] Lesion of Lesion of Disease Active Overview: Univers tongue tongue 02-06 Formattin ity of 00:00: g of this [place] 00 note might be Arto different n from the Cancer original. Center Added automatic ally from request for surgery [id number] Personal Personal Disease Active 2020-0 Unive rs history of history of 08-16 it y of irradiatio irradiatio [place] [facility] Secondary Secondary Disease Active 2018-07 Overview: Univers and and 15 Formattin ity of unspecifie unspecifie 00:00: g of this [place] d d 00 note malignant malignant might be An derso neoplasm neoplasm different n of lymph of lymph from the Canc er nodes of nodes of original. Lito ter head, face head, face Recurrent and neck and neck . Not stageable . If not recurrent would be N1 Pre op Pre op Disease Active Overview: Univer s cardiovasc cardiovasc 2-20 Formattin ity of ular ular 00:00: g of this [place] examinatio examinatio 00 note n n might be Jose different n from the Cancer original. 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 Center Added automatic ally from request for surgery [id number] Personal Personal Disease Active 2015-07 Unive rs history of history of 1-14 it y of melanoma melanoma 00:00: [place] of skin of skin 00 MD [facility] Oral Oral Disease Active Univers lichen lichen 7-16 ity of planus planus 00:00: [place] 00 MD [facility] Lichen Lichen Disease Active Univers planus planus ity of [place] MD [facility] Leukoplaki Leukoplaki Disease Active U nivers a of oral a of oral ity of mucosa mucosa [place] MD [facility] Gastroesop Gastroesop Disease Active U nivers hageal hageal ity of reflux reflux [place] disease disease (aka GERD (aka GERD Marcell rso - - n Gastro-eso Gastro-eso Ca ncer [facility] reflux reflux disease) disease) Hypothyroi Hypothyroi Disease Active U nivers dism dism ity of [place] MD [facility] Gout Gout Disease Active Univers ity of [place] MD [facility] Atrial Atrial Disease Active Overview: Univer s fibrillati fibrillati Formattin ity of on on g of this [place] note might be Arto kaushik n from the Cancer original. Center H/o PAF during both episodes of urosepsis , resolved. Personal Personal Disease Active Unive rs history of history of it y of stroke stroke [place] MD [facility] Hypertensi Hypertensi Disease Active U nivers on on ity of [place] MD [facility] H/O: H/O: Disease Active Univers hysterecto hysterecto it y of my my [place] MD [facility] Allergies, Adverse Reactions, Alerts Allergy Allergy Status Severity Reaction(s) Onset Inactive Treating Comm ents Source Name Type Date Date Clinician INDOMETH DRUG Active High Sob 2014-07 ACIN INGREDI 012 Anderso 00:00: n 00 AMLODIPI DRUG Active Other 2014-07 NE INGREDI 012 Anderso 00:00: n 00 CLONIDIN DRUG Active Other 2014-07 E INGREDI 012 Anderso 00:00: n 00 CODEINE DRUG Active Itching 2014-07 MD INGREDI 012 Anderso 00:00: n 00 DOXAZOSI DRUG Active Other 2014-07 N INGREDI 0-12 Anderso 00:00: n 00 EZETIMIB DRUG Active Other 2014-07 E INGREDI 0-12 Anderso 00:00: n 00 Amlodipi Drug Active Other (See 2014-07 Leg edema U nivers ne Intolera Comments) 0-12 ity o f nce 00:00: [place] 00 MD [facility] Clonidin Drug Active GI 2014-07 Nausea, Univers e Intolera Intolerance 0-12 Chest ity of nce 00:00: tightness [place] 00 , fatigue MD [facility] Codeine Drug Active Itching 2014-07 Univers Allergy 0-12 ity of 00:00: [place] 00 MD [facility] Doxazosi Drug Active GI 2014-07 Nausea Univers n Intolera Intolerance 0-12 ity of nce 00:00: [place] 00 MD [facility] Indometh Drug Active Shortness Of 2014-07 Un louie acin Intolera Breath 0-12 ity of nce 00:00: [place] 00 MD Jose rich [facility] Ezetimib Drug Active Other (See 2014-07 Back pain U nivers e Intolera Comments) 0-12 ity o f nce 00:00: [place] 00 MD Jose rich [facility] Family History Family Member Diagnosis Comments Start Date Stop Date Source Maternal aunt -Gynecology (Ovary, [facility] [place] Endometrial, Cervix, MD Kellie espinosa Cancer Vagina) Center Maternal uncle -Gastrointestinal [facility] [place] (Esophagus, Liver, And polly Cancer Bile Duct, Stomach, Cente r Pancreas, Colon, Rectum, Anus Natural sister -Multiple Myeloma [facility] Natural sister -[facility] Natural sister -Gastrointestinal [facility] [place] (Esophagus, Liver, MD And erson Cancer Bile Duct, Stomach, Cente r Pancreas, Colon, Rectum, Anus Social History Social Habit Start Date Stop Date Quantity Comments Source Alcohol intake 2021-11-14 2021-11-14 [facility] 00:00:00 00:00:00 non-drinker of Shannon espinosa alcohol (finding) Cancer Center Education 2021-02-14 2021-02-14 13 University 00:00:00 00:00:00 [place] MD Jeronimo santillan [facility] Tobacco use and 2016-10-25 2016-10-25 Smokeless tobacco Un iversity of exposure 00:00:00 00:00:00 non-user [place] MD Jeronimo santillan [facility] Sex [birth year] F Universit y of 00:00:00 00:00:00 [place] MD Jeronimo santillan [facility] Smoking Status Start Date Stop Date Source Never smoked tobacco [facility] Medications Ordered Filled Start Stop Current Ordering Indication Dosage Frequency Signature Comments Components Source Medication Medication Date Date Medication? Clinician (SIG) Name Name acetaminoph Yes 1{capsu Take 1 U nivers en 325 mg 11-26} capsule by ity of cap 11:20: mouth as [place] 10 needed. MD Jose rich [facility] aspirin 81 Yes 81mg Take 81 mg U nivers mg EC 5-09 by mouth ity of tablet 11:20: daily. [place] 10 MD Jose rich [facility] acetaminoph Yes 1{capsu Take 1 U nivers en 325 mg 5- le} capsule by ity of cap 11:20: mouth as [place] 10 needed. MD Jose rich [facility] aspirin 81 Yes 81mg Take 81 mg U nivers mg EC 5-09 by mouth ity of tablet 11:20: daily. [place] 10 MD Jose rich [facility] famotidine Yes 40mg Take 40 mg U nivers (PEPCID) 40 5-09 by mouth ity of mg tablet 11:18: at [place] [address] bedtime. MD Jose rich [facility] famotidine Yes 40mg Take 40 mg U nivers (PEPCID) 40 5-09 by mouth ity of mg tablet 11:18: at [place] [address] bedtime. MD Jose rich [facility] traMADol Yes Metastasis 50mg Take 1 U nivers (Ultram) 50 4-23 to head and tablet (50 ity of mg tablet 00:00: neck lymph mg) by [place] [address] node mouth every 8 Anderso (eight) n hours as Cancer needed for Center severe pain. traMADol Yes Metastasis 50mg Take 1 U nivers (Ultram) 50 4-23 to head and tablet (50 ity of mg tablet 00:00: neck lymph mg) by [place] [address] node mouth every 8 Anderso (eight) n hours as Cancer needed for Center severe pain. amoxicillin 2021- No Squamous 875mg Take 1 Univers -clavulanat 4-19 -27 cell tablet ity o f e 00:00: 04:59 carcinoma (875 mg) Donis as (Augmentin) 00 :00 of tongue by mouth 875 mg-125 twice Anderso mg per daily for n tablet 7 days. Cancer Center amoxicillin 0 2021- No Squamous 875mg Take 1 Univers -clavulanat 4-19 -27 cell tablet ity o f e 00:00: 04:59 carcinoma (875 mg) Donis as (Augmentin) 00 :00 of tongue by mouth 875 mg-125 twice Anderso mg per daily for n tablet 7 days. Cancer [place] rosuvastati Yes TAKE 1 Univ ers n (CRESTOR) 4-15 TABLET BY ity of 5 mg tablet 00:00: MOUTH TWO [place] 00 TIMES A MD WEEK [facility] rosuvastati Yes TAKE 1 Univ ers n (CRESTOR) 4-15 TABLET BY ity of 5 mg tablet 00:00: MOUTH TWO [place] 00 TIMES A MD WEEK [facility] isosorbide 2020-07 Yes 30mg Take 30 mg U nivers mononitrate 1-02 by mouth ity of (IMDUR) 30 00:00: daily. [place] mg 24 hr 00 [facility]07 Yes 30mg Take 30 mg U nivers mononitrate 1-02 by mouth ity of (IMDUR) 30 00:00: daily. [place] mg 24 hr 00 [facility]07 Yes Squamous 10mL Swish and Univers (lidocaine) 0-28 cell swallow 10 it y of 20 mg/mL 00:00: carcinoma mL every 4 [place] (2%) 00 of tongue (four) viscous hours as Anderso solution needed n (oral Cancer mucositis) [place] . lidocaine 2020-07 Yes Squamous 10mL Swish and Univers (lidocaine) 0-28 cell swallow 10 it y of 20 mg/mL 00:00: carcinoma mL every 4 [place] (2%) 00 of tongue (four) viscous hours as Anderso solution needed n (oral Cancer mucositis) [place] . nystatin 2020-07 Yes Squamous [id number] Swish and Univers (MYCOSTATIN 0-26 cell swallow 5 ity of ) 100,000 00:00: carcinoma mL Donis as units/mL 00 of tongue (500,000 MD suspension Units) 3 Jeronimo so (three) n times a Cancer day. [place] nystatin 2020-07 Yes Squamous [id number] Swish and Univers (MYCOSTATIN 0-26 cell swallow 5 ity of ) 100,000 00:00: carcinoma mL Donis as units/mL 00 of tongue (500,000 MD suspension Units) 3 Jeronimo so (three) n times a Cancer day. [place] gabapentin 2020-07 Yes Squamous 300mg Take 1 Univers (Neurontin) 0-21 cell capsule ity o f 300 mg 00:00: carcinoma (300 mg) [place] capsule 00 of tongue by mouth 3 M D (three) Anderso times a n day. Cancer Center gabapentin 2020-07 Yes Squamous 300mg Take 1 Univers (Neurontin) 0-21 cell capsule ity o f 300 mg 00:00: carcinoma (300 mg) [place] capsule 00 of tongue by mouth 3 M D (three) Anderso times a n day. Cancer Center lidocaine 2020-07- No Squamous 10mL Swish and Univers (lidocaine) 0-21 10-28 cell swallow 10 i ty of 20 mg/mL 00:00: 00:00 carcinoma mL every 4 [place] (2%) 00 :00 of tongue (four) viscous hours as Anderso solution needed n (oral Cancer mucositis) [place] . lidocaine 2020-07- No Squamous 10mL Swish and Univers (lidocaine) 0-21 10-28 cell swallow 10 i ty of 20 mg/mL 00:00: 00:00 carcinoma mL every 4 [place] (2%) 00 :00 of tongue (four) viscous hours as Anderso solution needed n (oral Cancer mucositis) [place] . rosuvastati 2020-07- No 5mg Take 5 mg Univers n (CRESTOR) 0-19 10-19 by mouth 2 i ty of 5 mg tablet 09:49: 00:00 (two) [place] 03 :00 times a MD week MTH. [facility] [place] aspirin 81 2020-07- No 81mg Take 81 mg Univers mg EC 0-19 10-19 by mouth ity of tablet 09:49: 00:00 daily. [place] 03 :00 MD [facility] amoxicillin 2021- No Primary 875mg Take 1 Univers -clavulanat 03-22 squamous tablet i ty of e 00:00: 00:00 cell (875 mg) [place] (AUGMENTIN) 00 :00 carcinoma by mouth 875 mg-125 of palatine twice A nderso mg per tonsil daily. n tablet Cancer Center amoxicillin 2021- No Primary 875mg Take 1 Univers -clavulanat 9-02 04-23 squamous tablet i ty of e 00:00: 00:00 cell (875 mg) [place] (AUGMENTIN) 00 :00 carcinoma by mouth 875 mg-125 of palatine twice A nderso mg per tonsil daily. n tablet Cancer [place] traMADol 2021- No Squamous 50mg Take 1 Un louie (Ultram) 50 7-30 04-23 cell tablet (50 i ty of mg tablet 00:00: 00:00 carcinoma mg) by [place] 00 :00 of tongue mouth MD every 6 Anderso (six) n hours as Cancer needed for Center moderate pain. traMADol 2021- No Squamous 50mg Take 1 Un louie (Ultram) 50 7-30 04-23 cell tablet (50 i ty of mg tablet 00:00: 00:00 carcinoma mg) by [place] 00 :00 of tongue mouth MD every 6 Anderso (six) n hours as Cancer needed for Center moderate pain. isosorbide 2020- No TK 1 T PO U nivers mononitrate 5-23 10-19 D ity of (IMDUR) 30 00:00: 00:00 [place] mg 24 hr 00 :00 tablet Jose [facility] metoprolol Yes 50mg Take 50 mg U nivers tartrate 7-11 by mouth ity of (LOPRESSOR) 00:00: twice [place] 50 mg 00 daily. MD blanka rich [facility] metoprolol Yes 50mg Take 50 mg U nivers tartrate 7-11 by mouth ity of (LOPRESSOR) 00:00: twice [place] 50 mg 00 daily. MD blanka Garcia [facility] levothyroxi 2016-07 Yes 1{tbl} Take 1 Un louie ne 0-24 tablet by ity of (SYNTHROID, 00:00: mouth [place] LEVOTHROID) 00 daily. 75 mcg Jose tablet [facility] levothyroxi 2016-07 Yes 1{tbl} Take 1 Un louie ne 0-24 tablet by ity of (SYNTHROID, 00:00: mouth [place] LEVOTHROID) 00 daily. 75 mcg Jose tablet [facility] magnesium 2014- Yes 400mg Take 400 Uni vers oxide 7-14 mg by ity of (MAOX) 400 00:00: mouth [place] mg tablet 00 daily. MD Jose rich [facility] nitroglycer 2014- Yes .4mg Take 0.4 Un louie in 7-14 mg by ity of (NITROSTAT) 00:00: mouth as [place] 0.4 mg [place] 00 needed for MD tablet chest Anderso pain. Call n 911 if no Cancer relief Center after 3 doses magnesium 2014- Yes 400mg Take 400 Uni vers oxide 7-14 mg by ity of (MAOX) 400 00:00: mouth [place] mg tablet 00 daily. MD Jose rich [facility] nitroglycer Yes .4mg Take 0.4 Un louie in 7-14 mg by ity of (NITROSTAT) 00:00: mouth as [place] 0.4 mg [place] 00 needed for MD tablet chest Anderso pain. Call n 911 if no Cancer relief Center after 3 doses Immunizations Ordered Filled Immunization Date Status Comments [facility] e Immunization Name Name [facility] SARS-CoV-2 2021-02-25 Completed Univer sity of Vaccination (Purple 00:00:00 [facility]) [facility] Pfizer SARS-CoV-2 2021-02-25 Completed Univer sity of Vaccination (Purple 00:00:00 [facility]) [facility] [place] Pfizer SARS-CoV-2 2021-02-02 Completed Univer sity of Vaccination (Purple 00:00:00 [facility]) [facility] Pfizer SARS-CoV-2 2021-02-02 Completed Univer sity of Vaccination (Purple 00:00:00 [facility]) [facility] Vital Signs Vital Name Observation Time Observation Value Comments Source Systolic blood 2021-12-06 14:43:02 158 mm[Hg] Univer sity of pressure [facility] Diastolic blood 2021-12-06 14:43:02 90 mm[Hg] Unive rsity of pressure [facility] Heart rate 2021-12-06 14:43:02 66 /min [facility] Body temperature 2021-12-06 14:43:02 36.72 Dena [facility] Respiratory rate 2021-12-06 14:43:02 18 /min [facility] Oxygen saturation in 2021-12-06 14:43:02 98 /min [facility] blood by Shannon espinosa Pulse oximetry Cancer Center Body weight 2021-11-26 16:13:00 66.6 kg [facility] MD [facility] BMI 2021-11-26 16:13:00 25.69 kg/m2 [facility] MD [facility] Body height 2021-11-10 03:25:00 161 cm [facility] MD Cordova [facility] Procedures Procedure Date / Time Performing Clinician Source Performed MRI HEAD/NECK SIMULATION 2021-12-07 16:14:17 Lorna Davey [facility] W WO CONTRAST (RO) [facility] [employer] [facility] POC CREATININE 2021-12-07 14:49:00 Lorna Davey [facility] CT SOFT TISSUE NECK W 2021-12-06 17:39:01 Lorna Davey [facility] CONTRAST [facility] COVID-19 (SARS-COV-2) 2021-12-05 18:43:00 Faraz Burns [facility] PCR ASYMPTOMATIC [facility] PATHOLOGY SURGICAL 2021-11-09 20:41:00 Luis Miguel Ly [facility] INTERPRETATION [facility] LEVEL V NECK DISSECTION 2021-11-09 19:14:00 Luis Miguel Ly [facility] TYPE AND SCREEN 2021-11-09 18:50:00 Tremaine Quinn [facility] ABORH 2021-11-09 18:50:00 Tremaine Quinn [facility] ANTIBODY SCREEN 2021-11-09 18:50:00 Tremaine Quinn [facility] TMP INTERPRETATION 2021-11-09 18:50:00 Tremaine Quinn [facility] ANTIBODY SCREEN NEGATIVE [facility] CLOT EXPIRATION DATE 2021-11-09 18:50:00 Tremaine Quinn [facility] POC GLUCOSE SCREEN 2021-11-09 16:01:00 Luis [facility] BLOOD UREA NITROGEN 2021-11-06 20:13:00 Prakash Newell [facility] COMPLETE BLOOD COUNT W/ 2021-11-06 20:13:00 Prakash Newell [facility] DIFFERENTIAL [facility] SERUM CREATININE 2021-11-06 20:13:00 Reece [facility] ELECTROLYTE PANEL 2021-11-06 20:13:00 Reece [facility] GLUCOSE, RANDOM 2021-11-06 20:13:00 Reece [facility] HEMOGLOBIN A1C 2021-11-06 20:13:00 Reece [facility] SERUM CREATININE 2021-11-06 20:13:00 Reece [facility] .GLOMERULAR FILTRATION 2021-11-06 20:13:00 Prakash Newell [facility] R[facility] Results CBC 2021-11-06 20:13:00 Reece [facility] MANUAL DIFFERENTIAL 2021-11-06 20:13:00 Prakash Newell [facility] MD COVID-19 (SARS-COV-2) 2021-11-06 17:32:00 Luis Miguel Ly [facility] PCR ASYMPTOMATIC [facility] US HEAD NECK SOFT TISSUE 2021-10-24 16:10:[facility] FINE NEEDLE ASPIRATION 2021-10-24 16:10:35 Alyce Vasile [facility] CYTOLOGY IMAGE-GUIDED FNA 2021-10-24 14:16:00 Luis Miguel Ly [facility] INTERPRETATION [facility] CT SOFT TISSUE NECK W 2021-10-17 19:48:40 Naresh Bradford [facility] CONTRAST [facility] POC CREATININE 2021-10-17 18:33:00 Naresh Bradford [facility] BLOOD UREA NITROGEN 2021-10-17 18:08:00 Sanchez [facility] er Center SERUM CREATININE 2021-10-17 18:08:00 Sanchez [facility] FREE THYROXINE 2021-10-17 18:08:[address] [facility] THYROID STIMULATING 2021-10-17 18:08:00 Sanchez [facility] HORMONE [facility] SERUM CREATININE 2021-10-17 18:08:00 Sanchez [facility] .GLOMERULAR FILTRATION 2021-10-17 18:08:00 Sanchez [facility] COVID-19 (SARS-COV-2) 2021-08-09 14:49:00 Miya Matos [facility] PCR-ASYMPTOMATIC [facility] CT SOFT TISSUE NECK W 2021-08-09 14:21:29 PetarLorna rios [facility] POC CREATININE 2021-08-09 13:33:00 [facility]IM[facility] 2021-08-09 12:50:00 PetarLorna rios [facility] HORMONE [facility] FREE THYROXINE 2021-08-09 12:50:00 Lorna Davey [facility] BLOOD UREA NITROGEN 2021-08-09 12:50:00 PetarLorna meredith [facility] SERUM CREATININE 2021-08-09 12:50:00 PetarLrona meredith [facility] er [place] SERUM CREATININE 2021-08-09 12:50:00 Petar, Leah [facility] .GLOMERULAR FILTRATION 2021-08-09 12:50:00 PetarLorna rios [facility] MD COVID-19 (SARS-COV-2) 2021-07-16 18:04:00 Luis Miguel Ly [facility] PCR ASYMPTOMATIC [facility] Plan of Care Planned Activity Planned Date Details Comments Source Future Scheduled 2022-05-14 COVID-19 Vaccination [facility] [place] Test 08:37:08 (3 - Pfizer risk MD [facility]) [code = Center COVID-19 Vaccination (3 - Pfizer risk series)] Future Scheduled 2022-04-30 COVID-19 Vaccination [facility] [place] Test 16:04:16 (3 - Pfizer risk MD [facility]) [code = Center COVID-19 Vaccination (3 - Pfizer risk series)] Encounters Start End Encounter Admission Attending Care Care Encounter Source Date/Time Date/Time Type Type Clinicians Facility Department ID 2021-02-19 Outpatient SYSTEM, [facility] [id number] 12:17:39 PROVIDER Art rich 2022-04-11 2022-04-11 Balaji Brennan [id number] Univers 00:00:00 00:00:00 Only Tara Julio [id number] ity of [id number] [place] .[id number] MD Maurer8 [facility] 2022-04-11 2022-04-11 Orders Mika [id number] Univers 00:00:00 00:00:00 Only Tara Julio [id number] ity of [id number] [place] .[id number] MD Baker [facility] 2022-04-10 2022-04-10 Balaji Brennan [id number] Univers 00:00:00 00:00:00 Only Tara Julio [id number] ity of [id number] [place] .[id number] MD Maurer8 [facility] 2022-04-10 2022-04-10 Orders Mika 1.2.840.1 [id number] Univers 00:00:00 00:00:00 Only Tara Julio 08269.1.1 ity of 3.412.2.7 [place] .3.555850 MD Baker [facility] 2022-02-12 2022-02-12 Orders Hofstede, 1.2.840.1 [id number] 1095 [id number] Univers 00:00:00 00:00:00 Only Miya 73349.1.1 ity of 3.412.2.7 [place] .3.664908 MD Maurer8 [facility] 2022-02-12 2022-02-12 Orders Hofstede, 1.2.840.1 [id number] Univers 00:00:00 00:00:00 Only Miya 72531.1.1 ity of 3.412.2.7 [place] .3.466887 MD Maurer8 [facility] 2022-01-01 2022-01-01 Orders Petar, 1.2.840.1 [id number] Univers 00:00:00 00:00:00 Only Lorna Shultz 32704.1.1 ity of 3.412.2.7 [place] .3.213085 MD Baker [facility] 2022-01-01 2022-01-01 Orders Petar, 1.2.840.1 [id number] Univers 00:00:00 00:00:00 Only Lorna Shultz 14147.1.1 ity of 3.412.2.7 [place] .3.039122 MD Maurer8 [facility] 2021-12-31 2021-12-31 [facility] 1.2.840.1 [id number] 1 [id number] Univers 10:57:47 23:59:00 Encounter Luis Miguel 10399.1.1 it y of 3.412.2.7 [place] .3.876167 MD Baker [facility] 2021-12-31 2021-12-31 [facility] 1.2.840.1 [id number] 1 [id number] Univers 10:57:47 23:59:00 Encounter Luis Miguel 48324.1.1 it y of 3.412.2.7 [place] .3Libertad179854 MD Baker [facility] 2021-12-31 2021-12-31 Travel 1.2.840.1 1.2.393.132 5428 [id number] Univers 00:00:00 00:00:00 66606.1.1 350.1.13.41 ity of 3.412.2.7 [place].3.698 [place]3.74[place] 084.8 MD Maurer8 [facility] 2021-12-31 2021-12-31 Documentat Faraz Burns 1.2.840.1 [id number] Univers 00:00:00 00:00:00 ion 12203.1.1 ity of 3.412.2.7 [place] .3.497586 MD Maurer8 [facility] 2021-12-31 2021-12-31 Documentat Daya 1.2.840.1 [id number] Univers 00:00:00 00:00:00 ion Jeff 78859.1.1 ity of 3.412.2.7 [place] .3.308369 MD Maurer8 [facility] 2021-12-31 2021-12-31 Travel 1.2.840.1 1.2.148.193 8170 [id number] Univers 00:00:00 00:00:00 35294.1.1 350.1.13.41 ity of 3.412.2.7 [place]7.3.698 [place] .3.905782 084.8 MD Maurer8 [facility] 2021-12-31 2021-12-31 Documentat Faraz Burns 1.2.840.1 [id number] [facility] 00:00:00 00:00:00 ion 09236.1.1 ity of 3.412.2.7 [place] .3.870538 MD Maurer8 [facility] 2021-12-31 2021-12-31 Documentat Daya 1.2.840.1 [id number] 10 [id number] Univers 00:00:00 00:00:00 ion Jeff 51604.1.1 ity of 3.412.2.7 [place] .3.366619 MD Mauerr8 [facility] 2021-12-28 2021-12-28 [facility] Faraz Burns 1.2.840.1 [id number] 10 [id number] [facility] 10:30:00 23:59:00 Encounter Bayron Burton 75166.1.1 ity of 3.412.2.7 [place] .3.758344 MD Maurer8 [facility] 2021-12-28 2021-12-28 [facility] Faraz Burns 1.2.840.1 [id number] 10 [id number] [facility] 10:30:00 23:59:00 Encounter Bayron Burton 76634.1.1 ity of 3.412.2.7 [place] .3.012385 MD Maurer8 [facility] 2021-12-28 2021-12-28 [facility] 1.2.840.1 [id number] 1 [id number] Univers 09:01:55 10:29:00 Encounter , Luis Miguel Shultz 33813.1.1 it y of 3.412.2.7 [place] .3.974336 MD Maurer8 [facility] 2021-12-28 2021-12-28 [facility] 1.2.840.1 [id number] 1 [id number] Univers 09:01:55 10:29:00 Encounter , Luis Miguel Shultz 42698.1.1 it y of 3.412.2.7 [place] .3.805986 MD Baker [facility] 2021-12-28 2021-12-28 Documentat Bayron Burton 1.2.840.1 [id number] Univers 00:00:00 00:00:00 ion 18151.1.1 ity of 3.412.2.7 [place] .3.083733 MD Baker [facility] 2021-12-28 2021-12-28 Travel 1.2.840.1 1.2.152.817 0223 [id number] Univers 00:00:00 00:00:00 54037.1.1 350.1.13.41 ity of 3.412.2.7 [place]7.3.698 [place]3.332787 084.8 MD Baker [facility] 2021-12-28 2021-12-28 Documentat Bayron Burton 1.2.840.1 [id number] Univers 00:00:00 00:00:00 ion 24400.1.1 ity of 3.412.2.7 [place] .3.063832 MD Baker [facility] 2021-12-28 2021-12-28 Travel 1.2.840.1 1.2.987.429 8765 [id number] Univers 00:00:00 00:00:00 88181.1.1 350.1.13.41 ity of 3.412.2.7 2.[place].7.3.698 [place]3.453967 084.8 MD Baker [facility] 2021-12-26 2021-12-26 [facility] 1.2.840.1 [id number] 1 [id number] Univers 09:06:43 23:59:00 Encounter , Luis Miguel Shultz 37293.1.1 it y of 3.412.2.7 [place] .3.938800 MD Baker [facility] 2021-12-26 2021-12-26 [facility] 1.2.840.1 [id number] 1 [id number] Univers 09:06:43 23:59:00 Encounter , Luis Miguel Shultz 53711.1.1 it y of 3.412.2.7 [place] .3.748584 MD Baker [facility] 2021-12-26 2021-12-26 Documentat Bayron Burton 1.2.840.1 [id number] Univers 00:00:00 00:00:00 ion 81373.1.1 ity of 3.412.2.7 [place] .3.347887 MD Baker [facility] 2021-12-26 2021-12-26 Travel 1.2.840.1 1.2.157.910 6054 [id number] Univers 00:00:00 00:00:00 26043.1.1 350.1.13.41 ity of 3.412.2.7 2.2.7.3.698 [place] .3.725001 084Olivia Baker [facility] 2021-12-26 2021-12-26 Documentat Bayron Burton 1.2.840.1 [id number] Univers 00:00:00 00:00:00 ion 51525.1.1 ity of 3.412.2.7 [place] .3.978767 MD Maurer8 [facility] 2021-12-26 2021-12-26 Travel 1.2.840.1 1.2.775.213 7370 [id number] Univers 00:00:00 00:00:00 90057.1.1 350.1.13.41 ity of 3.412.2.7 2.2.7.3.698 [place] .3.989866 084.8 MD Maurer8 [facility] 2021-12-24 2021-12-24 [facility] 1.2.840.1 [id number] 1 [id number] Univers 09:59:18 23:59:00 Encounter , Luis Miguel Shultz 37102.1.1 it y of 3.412.2.7 [place] .3.755470 MD Maurer8 [facility] 2021-12-24 2021-12-24 [facility] 1.2.840.1 [id number] 1 [id number] Univers 09:59:18 23:59:00 Encounter , Luis Miguel Shultz 35837.1.1 it y of 3.412.2.7 [place] .3.985893 MD Maurer8 [facility] 2021-12-24 2021-12-24 Documentat Ameena Longoria 1.2.840.1 [id number] Univers 00:00:00 00:00:00 ion Sara 32916.1.1 it y of 3.412.2.7 [place] .3.339286 MD Maurer8 [facility] 2021-12-24 2021-12-24 Travel 1.2.840.1 1.2.118.797 7663 [id number] Univers 00:00:00 00:00:00 45816.1.1 350.1.13.41 ity of 3.412.2.7 2.2[place]7.3.698 [place] .3.679368 084.8 MD Baker [facility] 2021-12-24 2021-12-24 Documentat Ameena Longoria 1.2.840.1 [id number] Univers 00:00:00 00:00:00 ion Sara 89166.1.1 it y of 3.412.2.7 [place] .3.515175 MD Baker [facility] 2021-12-24 2021-12-24 Travel 1.2.840.1 1.2.937.589 3349 [id number] Univers 00:00:00 00:00:00 42907.1.1 350.1.13.41 ity of 3.412.2.7 2.2.7.3.698 [place] .3.947671 084.8 MD Baker [facility] 2021-12-21 2021-12-21 [facility] 1.2.840.1 [id number] 1 [id number] Univers 08:45:01 23:59:00 Encounter , Luis Miguel Shultz 75913.1.1 it y of 3.412.2.7 [place] .3.397954 MD Baker [facility] 2021-12-21 2021-12-21 [facility] 1.2.840.1 [id number] 1 [id number] Univers 08:45:01 23:59:00 Encounter , Luis Miguel Shultz 32647.1.1 it y of 3.412.2.7 [place] .3.730028 MD Baker [facility] 2021-12-21 2021-12-21 Documentat Bayron Burton 1.2.840.1 [id number] Univers 00:00:00 00:00:00 ion 98441.1.1 ity of 3.412.2.7 [place] .3.322969 MD Baker [facility] 2021-12-21 2021-12-21 Travel 1.2.840.1 1.2.887.772 1851 [id number] Univers 00:00:00 00:00:00 79635.1.1 350.1.13.41 ity of 3.412.2.7 2.2.7.3.698 [place] .3.247855 084.8 MD Baker [facility] 2021-12-21 2021-12-21 Documentat Bayron Burton 1.2.840.1 [id number] Univers 00:00:00 00:00:00 ion 47870.1.1 ity of 3.412.2.7 [place] .3.072589 MD Maurer8 [facility] 2021-12-21 2021-12-21 [facility] 1.2.840.1 1.2.373.156 9363 [id number] Univers 00:00:00 00:00:00 47698.1.1 350.1.13.41 ity of 3.412.2.7 2.2.7.3.698 [place] .3.264890 084.8 MD Baker [facility] 2021-12-13 2021-12-13 Documentat Faraz Burns 1.2.840.1 [id number] Univers 00:00:00 00:00:00 ion 87161.1.1 ity of 3.412.2.7 [place] .3.545918 MD Baker [facility] 2021-12-13 2021-12-13 Documentat Faraz Burns 1.2.840.1 [id number] Univers 00:00:00 00:00:00 ion 82164.1.1 ity of 3.412.2.7 [place] .3.285260 MD Baker [facility] 2021-12-10 2021-12-10 [facility] 1.2.840.1 [id number] 1 [id number] Univers 06:00:00 23:59:00 Luis Miguel Porter 05476.1.1 it y of 3.412.2.7 [place] .3.531335 MD Baker [facility] 2021-12-10 2021-12-10 [facility] 1.2.840.1 [id number] 1 [id number] Univers 06:00:00 23:59:00 Encounter Luis Miguel Lexii 88603.1.1 it y of 3.412.2.7 [place] .3.412701 MD Baker [facility] 2021-12-07 2021-12-07 [facility] Lorna Davey 1.2.840.1 [id number] Univers 08:38:37 23:59:00 Encounter Faraz Burns 95863.1.1 ity of 3.412.2.7 [place] .3.924592 MD Baker [facility] 2021-12-07 [facility]07 [facility]1 [id number] Univers 08:38:37 23:59:00 Encounter Faraz Burns 88226.1.1 ity of 3.412.2.7 [place] .3.028435 MD Baker [facility] 2021-12-07 2021-12-07 Travel 1.2.840.1 1.2.418.043 1384 [id number] Univers 00:00:00 00:00:00 86077.1.1 350.1.13.41 ity of 3.412.2.7 2.2.7.3.698 [place] .3.188706 084.8 MD Baker [facility] 2021-12-07 2021-12-07 Travel 1.2.840.1 1.2.236.555 7593 [id number] Univers 00:00:00 00:00:00 51167.1.1 350.1.13.41 ity of 3.412.2.7 2.2.7.3.698 [place] .3.536323 084.8 MD Baker [facility] 2021-12-06 2021-12-06 [facility] 1.2.840.1 [id number] Univers 09:34:36 23:59:00 Encounter Faraz Burns 43971.1.1 ity of 3.412.2.7 [place] .3.378915 MD Baker [facility] 2021-12-06 2021-12-06 Hospital Petar, Lorna Shultz 1.2.840.1 [id number] Univers 09:34:36 23:59:00 Encounter Faraz Burns 53751.1.1 ity of 3.412.2.7 [place] .3.580607 MD Baker [facility] 2021-12-06 2021-12-06 Ancillary Petar, 1.2.840.1 [id number] Univers 12:30:00 13:30:00 Procedure Lorna Shultz 58465.1.1 it y of 3.412.2.7 [place] .3.169354 MD Maurer8 [facility] 2021-12-06 2021-12-06 Ancillary Petar, 1.2.840.1 [id number] [facility] 12:30:00 13:30:00 Procedure Lorna Shultz 98850.1.1 it y of 3.412.2.7 [place] .3.309544 MD Baker [facility] 2021-12-06 2021-12-06 Documentat Faraz Burns 1.2.840.1 [id number] Univers 00:00:00 00:00:00 ion 17477.1.1 ity of 3.412.2.7 [place] .3.371832 MD Baker [facility] 2021-12-06 2021-12-06 Documentat Faraz Burns 1.2.840.1 [id number] Univers 00:00:00 00:00:00 ion 79059.1.1 ity of 3.412.2.7 [place] .3.664232 MD Baker [facility] 2021-12-06 2021-12-06 Travel 1.2.840.1 1.2.379.123 3012 [id number] Univers 00:00:00 00:00:00 47723.1.1 350.1.13.41 ity of 3.412.2.7 2.2.7.3.698 [place] .3.340379 084.8 MD Baker [facility] 2021-12-06 2021-12-06 Documentat Faraz Burns 1.2.840.1 [id number] Univers 00:00:00 00:00:00 ion 80764.1.1 ity of 3.412.2.7 [place] .3.046846 MD Baker [facility] 2021-12-06 2021-12-06 Documentat Faraz Burns 1.2.840.1 [id number] Univers 00:00:00 00:00:00 ion 81500.1.1 ity of 3.412.2.7 [place] .3.324374 MD Maurer8 [facility] 2021-12-06 2021-12-06 Travel 1.2.840.1 1.2.198.506 9678 [id number] Univers 00:00:00 00:00:00 65691.1.1 350.1.13.41 ity of 3.412.2.7 2.2.7.3.698 [place] .3.062682 084.8 MD Maurer8 [facility] 2021-12-05 2021-12-05 Clinical PetarLorna 1.2.840.1 [id number] Univers 14:15:00 14:15:00 Support Ursula Da Silva 93877.1.1 ity of 3.412.2.7 [place] .3.787644 MD Baker [facility] 2021-12-05 2021-12-05 Clinical Petar, Lorna Shultz 1.2.840.1 [id number] Univers 14:15:00 14:15:00 Support Ursula Da Silva 20005.1.1 ity of 3.412.2.7 [place] .3.689763 MD Maurer8 [facility] 2021-12-05 2021-12-05 Travel 1.2.840.1 1.2.818.027 8757 [id number] Univers 00:00:00 00:00:00 71932.1.1 350.1.13.41 ity of 3.412.2.7 2.2.7.3.698 [place] .3.816981 084.8 MD Baker [facility] 2021-12-05 2021-12-05 Travel 1.2.840.1 1.2.379.439 5396 [id number] Univers 00:00:00 00:00:00 78645.1.1 350.1.13.41 ity of 3.412.2.7 2.2.7.3.698 [place] .3.844091 084.8 MD Baker [facility] 2021-12-03 2021-12-03 Orders Watts, 1.2.840.1 [id number] Univers 00:00:00 00:00:00 Only Meme L 73893.1.1 ity of 3.412.2.7 [place] .3.498764 MD Baker [facility] 2021-12-03 2021-12-03 Orders Watts, 1.2.840.1 [id number] Univers 00:00:00 00:00:00 Only Meme L 93713.1.1 ity of 3.412.2.7 [place] .3.991155 MD Baker [facility] 2021-11-30 2021-11-30 Orders Amezcua, 1.2.840.1 [id number] Univers 00:00:00 00:00:00 Only David 24121.1.1 ity of Van 3.412.2.7 [place] .3.440182 MD Baker [facility] 2021-11-30 2021-11-30 Orders Petar, 1.2.840.1 [id number] Univers 00:00:00 00:00:00 Only Lorna Shultz 45813.1.1 ity of 3.412.2.7 [place] .3.029406 MD Baker [facility] 2021-11-30 2021-11-30 Orders Mcknight, 1.2.840.1 [id number] [id number] Univers 00:00:00 00:00:00 Only Geo Wall 09596.1.1 ity of 3.412.2.7 [place] .3.883039 MD Maurer8 [facility] 2021-11-30 2021-11-30 Orders Lizeth, 1.2.840.1 [id number] Univers 00:00:00 00:00:00 Only Chikis 56790.1.1 ity of 3.412.2.7 [place] .3.337747 MD Maurer8 [facility] 2021-11-30 2021-11-30 Orders Amezcua, 1.2.840.1 [id number] Univers 00:00:00 00:00:00 Only David 70386.1.1 ity of Van 3.412.2.7 [place] .3.265884 MD Maurer8 [facility] 2021-11-30 2021-11-30 Orders Petar, 1.2.840.1 [id number] Univers 00:00:00 00:00:00 Only Lorna Shultz 91947.1.1 ity of 3.412.2.7 [place] .3.823057 MD Maurer8 [facility] 2021-11-30 2021-11-30 Orders Roxanna, 1.2.840.1 [id number] [id number] Univers 00:00:00 00:00:00 Only Geo Wall 63800.1.1 ity of 3.412.2.7 [place] .3.353506 MD Maurer8 [facility] 2021-11-30 2021-11-30 Orders Lizeth, 1.2.840.1 [id number] Univers 00:00:00 00:00:00 Only Chikis 66220.1.1 ity of 3.412.2.7 [place] .3.863210 MD Maurer8 [facility] 2021-11-26 2021-11-26 [facility] 1.2.840.1 [id number] 1 [id number] Univers 10:55:01 23:59:00 Luis Miguel Porter 82675.1.1 it y of 3.412.2.7 [place] .3.107463 MD Baker [facility] 2021-11-26 2021-11-26 [facility] 1.2.840.1 [id number] 1 [id number] Univers 10:55:01 23:59:00 Encounter , Luis Miguel Shultz 37539.1.1 it y of 3.412.2.7 [place] .3.680301 MD Baker [facility] 2021-11-26 2021-11-26 Travel 1.2.840.1 1.2.752.081 9884 [id number] Univers 00:00:00 00:00:00 86426.1.1 350.1.13.41 ity of 3.412.2.7 2.2.7.3.698 [place] .3.721552 084.Jf Baker [facility] 2021-11-26 2021-11-26 Travel 1.2.840.1 1.2.072.975 7738 [id number] Univers 00:00:00 00:00:00 75467.1.1 350.1.13.41 ity of 3.412.2.7 2.2.7.3.698 [place] .3.526827 084Olivia Baker [facility] 2021-11-09 2021-11-10 [facility] 1.2.840.1 [id number] 1 [id number] Univers 10:21:00 12:41:00 Encounter , Luis Miguel Shultz 39050.1.1 it y of 3.412.2.7 [place] .3.257776 MD Baker [facility] 2021-11-09 2021-11-10 [facility] 1.2.840.1 [id number] 1 [id number] Univers 10:21:00 12:41:00 Encounter , Luis Miguel Shultz 62074.1.1 it y of 3.412.2.7 [place] .3.133648 MD Baker [facility] 2021-11-10 2021-11-10 Orders Fabian, 1.2.840.1 [id number] [id number] Univers 00:00:00 00:00:00 Only Willem Benavides 16858.1.1 ity of 3.412.2.7 [place] .3.212378 MD Maurer8 [facility] 2021-11-10 2021-11-10 Orders Solitario, 1.2.840.1 [id number] Univers 00:00:00 00:00:00 Only Keith 30547.1.1 ity of 3.412.2.7 [place] .3.083944 MD Maurer8 [facility] 2021-11-10 2021-11-10 Orders Fabian, 1.2.840.1 [id number] [id number] Univers 00:00:00 00:00:00 Only Willem Benavides 88146.1.1 ity of 3.412.2.7 [place] .3.667204 MD Maurer8 [facility] 2021-11-10 2021-11-10 Orders Altaf, 1.2.840.1 [id number] Univers 00:00:00 00:00:00 Only Keith 50203.1.1 ity of 3.412.2.7 [place] .3.996406 MD Maurer8 [facility] 2021-11-09 2021-11-09 Surgery [place] 1.2.840.1 [id number] 10 [id number] Univers 12:50:00 16:30:00 , Luis Miguel Shultz 29042.1.1 ity of 3.412.2.7 [place] .3.667987 MD Maurer8 [facility] 2021-11-09 2021-11-09 Surgery [place] 1.2.840.1 [id number] 10 [id number] Univers 12:50:00 16:30:00 , Luis Miguel Shultz 29003.1.1 ity of 3.412.2.7 [place] .3.566906 MD Maurer8 [facility] 2021-11-09 2021-11-09 Anesthesia Tremaine Quinn. 1.2.840.1 [id number] Univers 14:44:00 16:21:00 Event Leidy Flanagan 73985.1.1 ity of 3.412.2.7 [place] .3.576509 MD Baker [facility] 2021-11-09 2021-11-09 Anesthesia Tremaine Quinn 1.2.840.1 [id number] Univers 14:44:00 16:21:00 Event Leidy Flanagan 29025.1.1 ity of 3.412.2.7 [place] .3.299154 MD Maurer8 [facility] 2021-11-09 2021-11-09 Travel 1.2.840.1 1.2.721.620 1988 [id number] Univers 00:00:00 00:00:00 94265.1.1 350.1.13.41 ity of 3.412.2.7 2.2.7.3.698 [place] .3.208863 084.8 MD Baker [facility] 2021-11-09 2021-11-09 Travel 1.2.840.1 1.2.516.446 0968 [id number] Univers 00:00:00 00:00:00 18504.1.1 350.1.13.41 ity of 3.412.2.7 2.2.7.3.698 [place] .3.960820 084.8 MD Baker [facility] 2021-11-07 2021-11-07 Anesthesia Mark, 1.2.840.1 [id number] Univers 16:20:55 16:20:55 Event Gabby L 70818.1.1 it y of 3.412.2.7 [place] .3.805880 MD Baker [facility] 2021-11-07 2021-11-07 Anesthesia Flores, 1.2.840.1 [id number] [id number] Univers 16:20:55 16:20:55 Event Gabby L 81011.1.1 it y of 3.412.2.7 [place] .3.031811 MD Baker [facility] 2021-11-06 2021-11-06 [facility] Prakash Melendez 1.2.840.1 [id number] 10 [id number] Univers 15:04:55 23:59:00 Encounter 54218.1.1 it y of 3.412.2.7 [place] .3.656999 MD Maurer8 [facility] 2021-11-06 2021-11-06 [facility] Prakash Newell 1.2.840.1 [id number] 10 [id number] Univers 15:04:55 23:59:00 Encounter 30921.1.1 it y of 3.412.2.7 [place] .3.097111 MD Maurer8 [facility] 2021-11-06 2021-11-06 POKERI Bradford, 1.2.840.1 [id number] Univers 14:00:00 15:36:27 Appointmen Naresh 02546.1.1 i ty of ts 3.412.2.7 [place] .3.754463 MD Maurer8 [facility] 2021-11-06 2021-11-06 ASHU Bradford, 1.2.840.1 [id number] Univers 14:00:00 15:36:27 Appointmen Naresh 96402.1.1 i ty of ts 3.412.2.7 [place] .3.305493 MD Maurer8 [facility] 2021-11-06 2021-11-06 Clinical Naresh Cummings 1.2.840.1 [id number] Univers 13:30:00 13:30:00 Support Sophia Jeronimo 04756.1.1 ity of 3.412.2.7 [place] .3.505436 MD Baker [facility] 2021-11-06 2021-11-06 Clinical Naresh Bradford 1.2.840.1 [id number] Univers 13:30:00 13:30:00 Support Sophia Jeronimo 49386.1.1 ity of 3.412.2.7 [place] .3.295526 MD Baker [facility] 2021-11-06 2021-11-06 [facility] 1.2.840.1 [id number] Univers 09:45:00 12:45:41 Visit , Luis Miguel Shultz 37103.1.1 ity of 3.412.2.7 [place] .3.899714 MD Baker [facility] 2021-11-06 2021-11-06 [facility] 1.2.840.1 [id number] [facility] 09:45:00 12:45:41 Visit , Luis Miguel Lexii 74721.1.1 ity of 3.412.2.7 [place] .3.098269 MD Baker [facility] 2021-11-06 2021-11-06 Travel 1.2.840.1 1.2.557.336 6303 [id number] Univers 00:00:00 00:00:00 42603.1.1 350.1.13.41 ity of 3.412.2.7 2.2.7.3.698 [place] .3.256245 084.8 MD Baker [facility] 2021-11-06 2021-11-06 Travel 1.2.840.1 1.2.050.136 0056 [id number] [facility] 00:00:00 00:00:00 20658.1.1 350.1.13.41 ity of 3.412.2.7 2.[place].7.3.698 [place] .3.189161 084.8 MD [facility] 2021-11-04 2021-11-04 Prep for Khzionjae, 1.2.840.1 [id number] 1091 [id number] Univers 00:00:00 00:00:00 Surgery Naresh 44561.1.1 ity of 3.412.2.7 [place] .3.201700 MD [facility] 2021-11-04 2021-11-04 Prep for Khanjae, 1.2.840.1 [id number] [id number] [facility] 00:00:00 00:00:00 Surgery Naresh 35981.1.1 ity of 3.412.2.7 [place] .3.197902 MD [facility] 2021-11-01 2021-11-01 Faraz Murphy 1.2.840.1 [id number] 659 [id number] Univers 00:00:00 00:00:00 Only 24559.1.1 ity of 3.412.2.7 [place] .3.247464 MD [facility] 2021-11-01 2021-11-01 Faraz Murphy 1.2.840.1 [id number] 736 [id number] Univers 00:00:00 00:00:00 Only 80086.1.1 ity of 3.412.2.7 [place] .3.918636 MD [facility] 2021-10-24 2021-10-24 Ancillary [place] 1.2.840.1 [id number] Univers 08:30:00 10:30:00 Luis Miguel Brooks 81942.1.1 it y of 3.412.2.7 [place] .3.167693 MD [facility] 2021-10-24 2021-10-24 Ancillary EL Mariowater 1.2.840.1 [id number] Univers 08:30:00 10:30:00 Procedure Luis Miguel 94443.1.1 it y of 3.412.2.7 [place] .3.097085 MD [facility] 2021-10-24 2021-10-24 Travel 1.2.840.1 1.2.022.226 8762 [id number] [facility] 00:00:00 00:00:00 81559.1.1 350.1.13.41 ity of 3.412.2.7 2.2.7.3.698 [place] .3.769178 084.8 MD [facility] 2021-10-24 2021-10-24 Travel 1.2.840.1 1.2.962.276 6791 [id number] [facility] 00:00:00 00:00:00 95943.1.1 350.1.13.41 ity of 3.412.2.7 2.[place].7.3.698 [place] .3.696666 084.8 MD [facility] 2021-10-22 2021-10-22 [facility] 1.2.840.1 [id number] Univers 10:27:06 23:59:00 Encounter , Luis Miguel Shultz 53299.1.1 it y of 3.412.2.7 [place] .3.676276 MD [facility] 2021-10-22 2021-10-22 [facility] 1.2.840.1 [id number] 1 [id number] Univers 10:27:06 23:59:00 Encounter , Luis Miguel Shultz 99743.1.1 it y of 3.412.2.7 [place] .3.095955 MD [facility] 2021-10-22 2021-10-22 Travel 1.2.840.1 1.2.322.637 0550 [id number] [facility] 00:00:00 00:00:00 44180.1.1 350.1.13.41 ity of 3.412.2.7 2.2.7.3.698 [place] .3.800640 084.8 MD [facility] 2021-10-22 2021-10-22 Travel 1.2.840.1 1.2.986.103 0165 [id number] [facility] 00:00:00 00:00:00 51843.1.1 350.1.13.41 ity of 3.412.2.7 2.2.7.3.698 [place] .3.267740 084.8 MD [facility] 2021-10-17 2021-10-17 [facility], 1.2.840.1 [id number] [id number] Univers 13:11:51 23:59:00 Encounter Naresh 32563.1.1 it y of 3.412.2.7 [place] .3.167235 MD [facility] 2021-10-17 2021-10-17 [facility], 1.2.840.1 [id number] 1090 [id number] Univers 13:11:51 23:59:00 Encounter Naresh 14540.1.1 it y of 3.412.2.7 [place] .3.336423 MD [facility] 2021-10-17 2021-10-17 [facility], 1.2.840.1 [id number] [id number] Univers 12:45:00 13:10:00 Encounter Naresh 73101.1.1 it y of 3.412.2.7 [place] .3.687544 MD [facility] 2021-10-17 2021-10-17 [facility], 1.2.840.1 [id number] [id number] Univers 12:45:00 13:10:00 Encounter Naresh 43270.1.1 it y of 3.412.2.7 [place] .3.770946 MD [facility] 2021-10-17 2021-10-17 Travel 1.2.840.1 1.2.093.241 2741 [id number] [facility] 00:00:00 00:00:00 48727.1.1 350.1.13.41 ity of 3.412.2.7 2.[place]7.3.698 [place] .3.079677 084.8 MD [facility] 2021-10-17 2021-10-17 Travel 1.2.840.1 1.2.645.874 9995 [id number] [facility] 00:00:00 00:00:00 35596.1.1 350.1.13.41 ity of 3.412.2.7 [place]7.3.698 [place]3.[place] 084.8 MD Baker [facility] 2021-08-13 2021-08-13 [facility] 1.2.840.1 [id number] 1 [id number] Univers 09:30:14 23:59:00 Encounter , Luis Miguel Shultz 92332.1.1 it y of 3.412.2.7 [place] .3.920366 MD Baker [facility] 2021-08-13 2021-08-13 [facility] 1.2.840.1 [id number] 1 [id number] [facility] 09:30:14 23:59:00 Encounter , Luis Miguel Shultz 09533.1.1 it y of 3.412.2.7 [place] .3.237529 MD Baekr [facility] 2021-08-13 2021-08-13 Travel 1.2.840.1 1.2.156.383 8059 [id number] Univers 00:00:00 00:00:00 90254.1.1 350.1.13.41 ity of 3.412.2.7 2.[place]7.3.698 [place] .3.669241 084.8 MD Baker [facility] 2021-08-13 2021-08-13 Travel 1.2.840.1 1.2.461.101 4485 [id number] Univers 00:00:00 00:00:00 80417.1.1 350.1.13.41 ity of 3.412.2.7 2.[place]7.3.698 [place]3.944544 084.Jf [facility] 2021-08-10 2021-08-10 [facility], 1.2.840.1 [id number] 059 [id number] [facility] 09:31:13 23:59:00 Encounter Miya 68566.1.1 it y of 3.412.2.7 [place] .3.428373 MD Baker [facility] 2021-08-10 2021-08-10 [facility] 1.2.840.1 [id number] Univers 09:31:13 23:59:00 Encounter Miya 78625.1.1 it y of 3.412.2.7 [place] .3.969240 MD Baker [facility] 2021-08-10 2021-08-10 [facility], 1.2.840.1 [id number] [id number] Univers 00:00:00 00:00:00 Sherice Morrell 60959.1.1 it y of 3.412.2.7 [place] .3.622861 MD Baker [facility] 2021-08-10 2021-08-10 Travel 1.2.840.1 1.2.810.370 9956 [id number] Univers 00:00:00 00:00:00 97738.1.1 350.1.13.41 ity of 3.412.2.7 2.[place]7.3.698 [place] .3.353152 084.8 MD Baker [facility] 2021-08-10 2021-08-10 [facility], 1.2.840.1 [id number] 987 [id number] Univers 00:00:00 00:00:00 Sherice Morrell 93052.1.1 it y of 3.412.2.7 [place] .3.022020 MD Baker [facility] 2021-08-10 2021-08-10 Travel 1.2.840.1 1.2.451.047 0068 [id number] Univers 00:00:00 00:00:00 06182.1.1 350.1.13.41 ity of 3.412.2.7 2.2.7.3.698 [place] .3.766911 084.8 MD Baker [facility] 2021-08-09 2021-08-09 [facility] Faraz Burns 1.2.840.1 [id number] 10 [id number] Univers 11:30:00 23:59:00 Encounter 91564.1.1 it y of 3.412.2.7 [place] .3.647113 MD Baker [facility] 2021-08-09 2021-08-09 [facility] Faraz Burns 1.2.840.1 [id number] 10 [id number] Univers 11:30:00 23:59:00 Encounter 58406.1.1 it y of 3.412.2.7 [place] .3.256403 MD Baker [facility] 2021-08-09 2021-08-09 [facility] Petar, 1.2.840.1 [id number] 1086 [id number] Univers 06:57:55 11:29:00 Encounter Lorna Shultz 38610.1.1 it y of 3.412.2.7 [place] .3.695498 MD Maurer8 [facility] 2021-08-09 2021-08-09 [facility], 1.2.840.1 [id number] 1086 [id number] Univers 06:57:55 11:29:00 Encounter Lorna Shultz 58332.1.1 it y of 3.412.2.7 [place] .3.635787 MD Maurer8 [facility] 2021-08-09 2021-08-09 Clinical Luis Miguel Ly 1.2.840.1 1010 95911 [id number] Univers 09:15:00 09:15:00 Support Saba Quezada 17181.1.1 ity of 3.412.2.7 [place] .3.408738 MD Maurer8 [facility] 2021-08-09 2021-08-09 Clinical Luis Miguel Linares 1.2.840.1 1010 31123 [id number] Univers 09:15:00 09:15:00 Support Saba Quezada 31106.1.1 ity of 3.412.2.7 [place] .3.438165 MD Maurer8 [facility] 2021-08-09 2021-08-09 [facility], 1.2.840.1 [id number] 1086 [id number] Univers 06:33:54 06:56:00 Encounter Lorna eLxii 24830.1.1 it y of 3.412.2.7 [place] .3.061083 MD Maurer8 [facility] 2021-08-09 2021-08-09 [facility], 1.2.840.1 [id number] 1086 [id number] Univers 06:33:54 06:56:00 Encounter Lorna M 30891.1.1 it y of 3.412.2.7 [place] .3.122071 MD Maurer8 [facility] 2021-08-09 2021-08-09 Travel 1.2.840.1 1.2.718.632 3787 [id number] Univers 00:00:00 00:00:00 23233.1.1 350.1.13.41 ity of 3.412.2.7 2.2.7.3.698 [place] .3.560670 084.8 .8 [facility] 2021-08-09 2021-08-09 Travel 1.2.840.1 1.2.008.023 9145 154086 Univers 00:00:00 00:00:00 30849.1.1 350.1.13.41 ity of 3.412.2.7 2.2.7.3.698 [place] .3.883857 084.8 MD Maurer8 [facility] 2021-07-23 2021-07-23 Orders Shay, 1.2.840.1 [id number] 1087 [id number] Univers 00:00:00 00:00:00 Only Peter A 11077.1.1 it y of 3.412.2.7 [place] .3.758411 MD Muarer8 [facility] 2021-07-23 2021-07-23 Orders Laurita, 1.2.840.1 [id number] 1087 [id number] Univers 00:00:00 00:00:00 Only Peter A 82820.1.1 it y of 3.412.2.7 [place] .3.413626 MD Baker [facility] 2021-07-18 2021-07-18 Orders Bowling-Leander 1.2.840.1 [id number] 10 [id number] Univers 00:00:00 00:00:00 Only on, Mónica Hopkins. 42149.1.1 ity of 3.412.2.7 [place] .3.506469 MD Baker [facility] 2021-07-18 2021-07-18 Orders Bowling-Leander 1.2.840.1 [id number] 10 [id number] Univers 00:00:00 00:00:00 Only on, Mónica A. 29986.1.1 ity of 3.412.2.7 [place] .3.127448 MD Baker [facility] 2021-07-17 2021-07-17 [facility] 1.2.840.1 [id number] 1 [id number] Univers 09:55:11 23:59:00 Encounter on, Mónica Hopkins. 47230.1.1 ity of 3.412.2.7 [place] .3.977540 MD Baker [facility] 2021-07-17 2021-07-17 [facility] 1.2.840.1 [id number] 1 [id number] [facility] 09:55:11 23:59:00 Encounter on, Mónica Hopkins. 91397.1.1 ity of 3.412.2.7 [place] .3.986209 MD Baker [facility] 2021-07-17 2021-07-17 Travel 1.2.840.1 1.2.972.956 4551 [id number] Univers 00:00:00 00:00:00 26156.1.1 350.1.13.41 ity of 3.412.2.7 2.2.7.3.698 [place] .3.216127 084.Jf Baker [facility] 2021-07-17 2021-07-17 Travel 1.2.840.1 1.2.165.777 1470 [id number] Univers 00:00:00 00:00:00 22688.1.1 350.1.13.41 ity of 3.412.2.7 2.2.7.3.698 [place] .3.675327 08Sandra.Jf Baker [facility] 2021-07-16 2021-07-16 Clinical Luis Miguel Ly 1.2.840.1 1010 28120 [id number] Univers 11:30:00 16:44:43 Support Melita Perkins 80716.1.1 ity of 3.412.2.7 [place] .3.123648 MD Baker [facility] 2021-07-16 2021-07-16 Clinical Luis Miguel Linares 1.2.840.1 1010 51588 [id number] Univers 11:30:00 16:44:43 Support Melita Perkins 41673.1.1 ity of 3.412.2.7 [place] .3.291479 MD Baker [facility] 2021-07-16 2021-07-16 Travel 1.2.840.1 1.2.159.024 8681 [id number] Univers 00:00:00 00:00:00 33127.1.1 350.1.13.41 ity of 3.412.2.7 2.2.7.3.698 [place] .3.297711 084.8 MD Baker [facility] 2021-07-16 2021-07-16 Travel 1.2.840.1 1.2.785.131 6713 [id number] Univers 00:00:00 00:00:00 71627.1.1 350.1.13.41 ity of 3.412.2.7 2.2.7.3.698 [place] .3.874677 084.8 MD Baker [facility] 2021-07-11 2021-07-11 Orders Carlo, 1.2.840.1 [id number] 1087 [id number] Univers 00:00:00 00:00:00 Only Miya 12730.1.1 ity of 3.412.2.7 [place] .3.887320 MD Baker [facility] 2021-07-11 2021-07-11 Orders Carlo, 1.2.840.1 [id number] 1087 [id number] Univers 00:00:00 00:00:00 Only Miya 48969.1.1 ity of 3.412.2.7 [place] .3.211274 MD Baker [facility] 2021-06-12 2021-06-12 [facility] 1.2.840.1 [id number] 1 [id number] Univers 07:25:51 23:59:00 Luis Miguel Porter.1.1 it y of 3.412.2.7 [place] .3.835656 MD Baker [facility] 2021-06-12 2021-06-12 [facility] 1.2.840.1 [id number] 1 [id number] Univers 07:25:51 23:59:00 Encounter , Luis Miguel M 41114.1.1 it y of 3.412.2.7 [place] .3.345314 MD Baker [facility] 2021-06-12 2021-06-12 Documentat Faraz Burns 1.2.840.1 [id number] Univers 00:00:00 00:00:00 ion 75168.1.1 ity of 3.412.2.7 [place] .3.946186 MD Baker [facility] 2021-06-12 2021-06-12 Travel 1.2.840.1 1.2.476.613 7213 [id number] Univers 00:00:00 00:00:00 99652.1.1 350.1.13.41 ity of 3.412.2.7 2.2.7.3.698 [place] .3.557815 084.8 MD Baker [facility] 2021-06-12 2021-06-12 Documentat Faraz Burns 1.2.840.1 [id number] Univers 00:00:00 00:00:00 ion 97512.1.1 ity of 3.412.2.7 [place] .3.803857 MD Baker [facility] 2021-06-12 2021-06-12 Travel 1.2.840.1 1.2.421.562 1321 [id number] Univers 00:00:00 00:00:00 24347.1.1 350.1.13.41 ity of 3.412.2.7 2.2.7.3.698 [place] .3.152571 084.8 MD Baker [facility] 2021-06-11 2021-06-11 [facility] 1.2.840.1 [id number] 1 [id number] Univers 12:05:45 23:59:00 Luis Miguel Porter 38268.1.1 it y of 3.412.2.7 [place] .3.541809 MD Baker [facility] 2021-06-11 2021-06-11 [facility] 1.2.840.1 [id number] 1 [id number] Univers 12:05:45 23:59:00 Encounter , Luis Miguel Shultz 70103.1.1 it y of 3.412.2.7 [place] .3.463987 MD Baker [facility] 2021-06-11 2021-06-11 Travel 1.2.840.1 1.2.094.118 9046 [id number] Univers 00:00:00 00:00:00 49695.1.1 350.1.13.41 ity of 3.412.2.7 2.2.7.3.698 [place] .3.980319 084.8 MD Baker [facility] 2021-06-11 2021-06-11 Travel 1.2.840.1 1.2.021.255 2484 [id number] [facility] 00:00:00 00:00:00 94758.1.1 350.1.13.41 ity of 3.412.2.7 2.2.7.3.698 [place] .3.395930 084Olivia Baker [facility] 2021-06-10 2021-06-10 [facility] 1.2.840.1 [id number] 1 [id number] [facility] 12:17:14 23:59:00 Encounter , Luis Miguel Shultz 18668.1.1 it y of 3.412.2.7 [place] .3.994237 MD Baker [facility] 2021-06-10 2021-06-10 [facility] 1.2.840.1 [id number] 1 [id number] Univers 12:17:14 23:59:00 Encounter , Luis Miguel Shultz 89803.1.1 it y of 3.412.2.7 [place] .3.091069 MD Baker [facility] 2021-06-10 2021-06-10 Travel 1.2.840.1 1.2.080.758 3064 [id number] [facility] 00:00:00 00:00:00 49296.1.1 350.1.13.41 ity of 3.412.2.7 2.2.7.3.698 [place] .3.699783 084Libertad8 MD .8 [facility] 2021-06-10 2021-06-10 Travel 1.2.840.1 1.2.474.721 4023 [id number] Univers 00:00:00 00:00:00 97646.1.1 350.1.13.41 ity of 3.412.2.7 2.2.7.3.698 [place] .3.734491 084.8 MD Baker [facility] 2021-06-08 2021-06-08 [facility] 1.2.840.1 [id number] 1 [id number] Univers 05:45:19 23:59:00 Encounter , Luis Miguel Shultz 78096.1.1 it y of 3.412.2.7 [place] .3.427041 MD Baker [facility] 2021-06-08 2021-06-08 [facility] 1.2.840.1 [id number] 1 [id number] Univers :45:19 23:59:00 Encounter , Luis Miguel Shultz 77944.1.1 it y of 3.412.2.7 [place] .3.562901 MD Baker [facility] 2021-06-08 2021-06-08 Orders Carmen-Chandrakant 1.2.840.1 [id number] 10 [id number] Univers 00:00:00 00:00:00 Only Patricia keysta 40312.1.1 ity of 3.412.2.7 [place] .3.246110 MD Baker [facility] 2021-06-08 2021-06-08 Orders Petar, 1.2.840.1 [id number] 80526 [id number] Univers 00:00:00 00:00:00 Only Lorna Lexii 84794.1.1 ity of 3.412.2.7 [place] .3.454832 MD Baker [facility] 2021-06-08 2021-06-08 Travel 1.2.840.1 1.2.548.166 8245 [id number] Univers 00:00:00 00:00:00 21932.1.1 350.1.13.41 ity of 3.412.2.7 2.2.7.3.698 [place] .3.825132 084.8 MD Maurer8 [facility] 2021-06-08 2021-06-08 Orders Carmen-Chandrakant 1.2.840.1 [id number] 10 [id number] Univers 00:00:00 00:00:00 Only Mary keys 01307.1.1 ity of 3.412.2.7 [place] .3.502766 MD Maurer8 [facility] 2021-06-08 2021-06-08 Orders Petar, 1.2.840.1 [id number] [id number] Univers 00:00:00 00:00:00 Only Lorna Shultz 26697.1.1 ity of 3.412.2.7 [place] .3.249390 MD Baker [facility] 2021-06-08 2021-06-08 Travel 1.2.840.1 1.2.966.240 0746 [id number] Univers 00:00:00 00:00:00 16952.1.1 350.1.13.41 ity of 3.412.2.7 2.2.7.3.698 [place] .3.057531 084.8 MD Baker [facility] 2021-06-07 2021-06-07 [facility] 1.2.840.1 [id number] 1 [id number] [facility] 12:32:46 23:59:00 Encounter Luis Miguel 53126.1.1 it y of 3.412.2.7 [place] .3.596285 MD Baker [facility] 2021-06-07 2021-06-07 [facility] 1.2.840.1 [id number] 1 [id number] Univers 12:32:46 23:59:00 Encounter Luis Miguel 33594.1.1 it y of 3.412.2.7 [place] .3.758021 MD Baker [facility] 2021-06-07 2021-06-07 [facility] Faraz Burns 1.2.840.1 [id number] 10 [id number] Univers 10:25:47 12:31:00 Encounter 98043.1.1 it y of 3.412.2.7 [place] .3.357103 MD Baker [facility] 2021-06-07 2021-06-07 [facility] Faraz Calderón 1.2.840.1 [id number] 10 [id number] [facility] 10:25:47 12:31:00 Encounter 32729.1.1 it y of 3.412.2.7 [place] .3.659064 MD Baker [facility] 2021-06-07 2021-06-07 Travel 1.2.840.1 1.2.329.361 7240 [id number] Univers 00:00:00 00:00:00 04245.1.1 350.1.13.41 ity of 3.412.2.7 2.2.7.3.698 [place] .3.164467 084.8 MD Baker [facility] 2021-06-07 2021-06-07 Travel 1.2.840.1 1.2.521.575 2429 [id number] Univers 00:00:00 00:00:00 82871.1.1 350.1.13.41 ity of 3.412.2.7 2.2.7.3.698 [place] .3.926154 084.8 MD Baker [facility] 2021-06-06 2021-06-06 [facility] 1.2.840.1 [id number] 1 [id number] Univers 07:28:53 23:59:00 Encounter , Luis Miguel Shultz 40114.1.1 it y of 3.412.2.7 [place] .3.850855 MD Baker [facility] 2021-06-06 2021-06-06 [facility] 1.2.840.1 [id number] 1 [id number] [facility] 07:28:53 23:59:00 Encounter , Luis Miguel Shultz 38633.1.1 it y of 3.412.2.7 [place] .3.387484 MD Baker [facility] 2021-06-06 2021-06-06 Travel 1.2.840.1 1.2.680.206 6894 [id number] Univers 00:00:00 00:00:00 23606.1.1 350.1.13.41 ity of 3.412.2.7 2.2.7.3.698 [place] .3.680663 084.8 MD Baker [facility] 2021-06-06 2021-06-06 Travel 1.2.840.1 1.2.919.548 7239 [id number] Univers 00:00:00 00:00:00 77915.1.1 350.1.13.41 ity of 3.412.2.7 2.2.7.3.698 [place] .3.534284 084.8 MD Baker [facility] 2021-06-05 2021-06-05 [facility] 1.2.840.1 [id number] 1 [id number] Univers 15:32:06 23:59:00 Encounter , Luis Miguel Shultz 47079.1.1 it y of 3.412.2.7 [place] .3.108092 MD Baker [facility] 2021-06-05 2021-06-05 [facility] 1.2.840.1 [id number] 1 [id number] Univers 15:32:06 23:59:00 Encounter , Luis Miguel Shultz 62225.1.1 it y of 3.412.2.7 [place] .3.602922 MD Baker [facility] 2021-06-05 2021-06-05 Travel 1.2.840.1 1.2.211.676 1864 [id number] Univers 00:00:00 00:00:00 41378.1.1 350.1.13.41 ity of 3.412.2.7 2.2.7.3.698 [place] .3.142853 084.8 MD Baker [facility] 2021-06-05 2021-06-05 Travel 1.2.840.1 1.2.742.085 8676 [id number] Univers 00:00:00 00:00:00 19985.1.1 350.1.13.41 ity of 3.412.2.7 2.2.7.3.698 [place] .3.411953 084.8 MD Baker [facility] 2021-06-04 2021-06-04 [facility] 1.2.840.1 [id number] 1 [id number] Univers 10:20:10 23:59:00 Encounter , Luis Miguel Shultz 53714.1.1 it y of 3.412.2.7 [place] .3.958227 MD Baker [facility] 2021-06-04 2021-06-04 [facility] 1.2.840.1 [id number] 1 [id number] Univers 10:20:10 23:59:00 Encounter , Luis Miguel Shultz 56940.1.1 it y of 3.412.2.7 [place] .3.861025 MD Baker [facility] 2021-06-04 2021-06-04 Travel 1.2.840.1 1.2.972.506 6528 [id number] Univers 00:00:00 00:00:00 70343.1.1 350.1.13.41 ity of 3.412.2.7 2.2.7.3.698 [place] .3.797453 084.8 MD Baker [facility] 2021-06-04 2021-06-04 Travel 1.2.840.1 1.2.484.986 4750 [id number] Univers 00:00:00 00:00:00 53853.1.1 350.1.13.41 ity of 3.412.2.7 2.2.7.3.698 [place] .3.393942 084.8 MD Baker [facility] 2021-06-01 2021-06-01 [facility] 1.2.840.1 [id number] 1 [id number] Univers 07:12:43 23:59:00 Encounter , Luis Miguel Shultz 08922.1.1 it y of 3.412.2.7 [place] .3.940449 MD Baker [facility] 2021-06-01 2021-06-01 [facility] 1.2.840.1 [id number] 1 [id number] Univers 07:12:43 23:59:00 Encounter , Luis Miguel Shultz 40494.1.1 it y of 3.412.2.7 [place] .3.917159 MD Baker [facility] 2021-06-01 2021-06-01 Documentat Sofi, 1.2.840.1 [id number] 1 [id number] Univers 00:00:00 00:00:00 ion Mayela 52321.1.1 ity of 3.412.2.7 [place] .3.226272 MD Baker [facility] 2021-06-01 2021-06-01 Travel 1.2.840.1 1.2.082.410 5992 [id number] Univers 00:00:00 00:00:00 08431.1.1 350.1.13.41 ity of 3.412.2.7 2.2.7.3.698 [place] .3.628180 084Olivia Baker [facility] 2021-06-01 2021-06-01 Documentat Sofi, 1.2.840.1 [id number] 1 [id number] Univers 00:00:00 00:00:00 ion Mayela 47808.1.1 ity of 3.412.2.7 [place] .3.129373 MD Baker [facility] 2021-06-01 2021-06-01 Travel 1.2.840.1 1.2.067.111 1144 [id number] Univers 00:00:00 00:00:00 52031.1.1 350.1.13.41 ity of 3.412.2.7 2.2.7.3.698 [place] .3.977092 084Olivia Baker [facility] 2021-05-31 2021-05-31 [facility] 1.2.840.1 [id number] 1 [id number] Univers 15:41:21 23:59:00 Encounter Luis Miguel 30506.1.1 it y of 3.412.2.7 [place] .3.581504 MD Baker [facility] 2021-05-31 2021-05-31 [facility] 1.2.840.1 [id number] 1 [id number] Univers 15:41:21 23:59:00 Encounter , Luis Miguel Shultz 85281.1.1 it y of 3.412.2.7 [place] .3.471763 MD Maurer8 [facility] 2021-05-31 2021-05-31 [facility] DAPHNE Burns Faraz 1.2.840.1 [id number] 10 [id number] Univers 14:44:07 15:40:00 Encounter 75605.1.1 it y of 3.412.2.7 [place] .3.502410 .8 [facility] 2021-05-31 [facility] [id number] 10 [id number] Univers 14:44:07 15:40:00 Encounter 99566.1.1 it y of 3.412.2.7 [place] .3.350171 MD Maurer8 [facility] 2021-05-31 2021-05-31 Travel 1.2.840.1 1.2.368.162 7449 [id number] Univers 00:00:00 00:00:00 67173.1.1 350.1.13.41 ity of 3.412.2.7 2.2.7.3.698 [place] .3.784248 084.8 MD Baker [facility] 2021-05-31 2021-05-31 Travel 1.2.840.1 1.2.082.226 9460 [id number] Univers 00:00:00 00:00:00 53705.1.1 350.1.13.41 ity of 3.412.2.7 2.2.7.3.698 [place] .3.814150 084.8 MD Baker [facility] 2021-05-30 2021-05-30 [facility] 1.2.840.1 [id number] 1 [id number] Univers 18:00:20 23:59:00 Encounter , Luis Miguel Shultz 86743.1.1 it y of 3.412.2.7 [place] .3.001692 MD Maurer8 [facility] 2021-05-30 2021-05-30 [facility] 1.2.840.1 [id number] 1 [id number] Univers 18:00:20 23:59:00 Encounter , Luis Miguel Shultz 09353.1.1 it y of 3.412.2.7 [place] .3.838745 MD Maurer8 [facility] 2021-05-30 2021-05-30 Travel 1.2.840.1 1.2.011.195 0838 [id number] Univers 00:00:00 00:00:00 97719.1.1 350.1.13.41 ity of 3.412.2.7 2.2.7.3.698 [place] .3.754485 084.8 MD Baker [facility] 2021-05-30 2021-05-30 Travel 1.2.840.1 1.2.943.617 5255 [id number] Univers 00:00:00 00:00:00 77049.1.1 350.1.13.41 ity of 3.412.2.7 2.2.7.3.698 [place] .3.521678 084.8 MD Baker [facility] 2021-05-29 2021-05-29 [facility] 1.2.840.1 [id number] 1 [id number] Univers 18:51:20 23:59:00 Encounter , Luis Miguel Shultz 43832.1.1 it y of 3.412.2.7 [place] .3.478515 MD Baker [facility] 2021-05-29 2021-05-29 [facility] 1.2.840.1 [id number] 1 [id number] Univers 18:51:20 23:59:00 Encounter , Luis Miguel Shultz 40353.1.1 it y of 3.412.2.7 [place] .3.246733 MD Baker [facility] 2021-05-29 2021-05-29 Travel 1.2.840.1 1.2.922.400 0901 [id number] Univers 00:00:00 00:00:00 37624.1.1 350.1.13.41 ity of 3.412.2.7 2.2.7.3.698 [place] .3.835203 084.8 MD Baker [facility] 2021-05-29 2021-05-29 Travel 1.2.840.1 1.2.098.096 1441 [id number] Univers 00:00:00 00:00:00 72192.1.1 350.1.13.41 ity of 3.412.2.7 2.2.7.3.698 [place] .3.336052 084.8 MD Maurer8 [facility] 2021-05-28 2021-05-28 [facility] Faraz Calderón 1.2.840.1 [id number] 10 [id number] Univers 15:43:36 23:59:00 Encounter 58016.1.1 it y of 3.412.2.7 [place] .3.780150 MD Baker [facility] 2021-05-28 2021-05-28 [facility] Faraz Burns 1.2.840.1 [id number] [facility] 15:43:36 23:59:00 Encounter 58791.1.1 it y of 3.412.2.7 [place] .3.695123 MD Baker [facility] 2021-05-28 2021-05-28 [facility] 1.2.840.1 [id number] 1 [id number] Univers 13:23:27 15:42:00 Encounter , Luis Miguel Shultz 66542.1.1 it y of 3.412.2.7 [place] .3.048283 MD Maurer8 [facility] 2021-05-28 2021-05-28 [facility] 1.2.840.1 [id number] Univers 13:23:27 15:42:00 Encounter , Luis Miguel Shultz 44337.1.1 it y of 3.412.2.7 [place] .3.477235 MD Baker [facility] 2021-05-28 2021-05-28 [facility] Faraz Burns 1.2.840.1 [id number] [facility] 00:00:00 00:00:00 ion 11234.1.1 ity of 3.412.2.7 [place] .3.332215 MD Baker [facility] 2021-05-28 2021-05-28 Travel 1.2.840.1 1.2.872.108 [id number] [id number] [facility] 00:00:00 00:00:00 80333.1.1 350.1.13.41 ity of 3.412.2.7 2.[place]7.3.698 [place] .3.658430 084.8 MD Baker [facility] 2021-05-28 2021-05-28 Documentat Faraz Burns 1.2.840.1 [id number] [facility] 00:00:00 00:00:00 ion 68846.1.1 ity of 3.412.2.7 [place] .3.221621 MD Baker [facility] 2021-05-28 2021-05-28 Travel 1.2.840.1 1.2.865.130 [id number] [id number] [facility] 00:00:00 00:00:00 98655.1.1 350.1.13.41 ity of 3.412.2.7 2.[place]7.3.698 [place] .3.338168 084.8 MD Baker [facility] 2021-05-25 2021-05-25 [facility] 1.2.840.1 [id number] Univers 07:59:51 23:59:00 Encounter Luis Miguel 59344.1.1 it y of 3.412.2.7 [place] .3.541987 MD Baker [facility] 2021-05-25 2021-05-25 [facility] 1.2.840.1 [id number] 1 [id number] Univers 07:59:51 23:59:00 Encounter Luis Miguel 59093.1.1 it y of 3.412.2.7 [place] .3.356652 MD Baker [facility] 2021-05-25 2021-05-25 Travel 1.2.840.1 1.2.304.462 [id number] [id number] [employer] 00:00:00 00:00:00 45237.1.1 350.1.13.41 ity of 3.412.2.7 2.2.7.3.698 [place] .3.184980 084.8 MD Maurer8 [facility] 2021-05-25 2021-05-25 Travel 1.2.840.1 1.2.548.645 5949 [id number] [facility] 00:00:00 00:00:00 58853.1.1 350.1.13.41 ity of 3.412.2.7 2.2.7.3.698 [place] .3.336201 084.8 MD Baker [facility] 2021-05-24 2021-05-24 [facility] Faraz Burns 1.2.840.1 [id number] 10 [id number] Univers 09:20:41 23:59:00 Encounter 26641.1.1 it y of 3.412.2.7 [place] .3.822837 MD Baker [facility] 2021-05-24 2021-05-24 [facility] Faraz Burns 1.2.840.1 [id number] 10 [id number] Univers 09:20:41 23:59:00 Encounter 85283.1.1 it y of 3.412.2.7 [place] .3.989467 MD Baker [facility] 2021-05-24 2021-05-24 Travel 1.2.840.1 1.2.651.882 [id number] [id number] [facility] 00:00:00 00:00:00 89667.1.1 350.1.13.41 ity of 3.412.2.7 2.2.7.3.698 [place] .3.573740 084.8 MD Baker [facility] 2021-05-24 2021-05-24 Travel 1.2.840.1 1.2.768.592 [id number] [id number] [employer] 00:00:00 00:00:00 91511.1.1 350.1.13.41 ity of 3.412.2.7 2.2.7.3.698 [place] .3.096483 084.8 MD Baker [facility] 2021-05-23 2021-05-23 [facility] 1.2.840.1 [id number] 1 [id number] Univers 06:23:00 23:59:00 Encounter , Luis Miguel Shultz 82517.1.1 it y of 3.412.2.7 [place] .3.485087 MD Baker [facility] 2021-05-23 2021-05-23 [facility] 1.2.840.1 [id number] 1 [id number] Univers 06:23:00 23:59:00 Encounter , Luis Miguel Shultz 30706.1.1 it y of 3.412.2.7 [place] .3.410071 MD Baker [facility] 2021-05-23 2021-05-23 Travel 1.2.840.1 1.2.109.061 [id number] [id number] [employer] 00:00:00 00:00:00 99941.1.1 350.1.13.41 ity of 3.412.2.7 2.2[place]7.3.698 [place] .3.599305 084.8 MD Baker [facility] 2021-05-23 2021-05-23 Travel 1.2.840.1 1.2.219.664 9309 [id number] Univers 00:00:00 00:00:00 41524.1.1 350.1.13.41 ity of 3.412.2.[place].3.698 [place]3.268[place] 084Olivia Baker [facility] 2021-05-22 2021-05-22 [facility] 1.2.840.1 [id number] 1 [id number] Univers 07:26:16 23:59:00 Encounter , Luis Miguel Shultz 22858.1.1 it y of 3.412.2.7 [place] .3.508281 MD Baker [facility] 2021-05-22 2021-05-22 [facility] 1.2.840.1 [id number] 1 [id number] Univers 07:26:16 23:59:00 Encounter , Luis Miguel Shultz 92311.1.1 it y of 3.412.2.7 [place] .3.236435 MD Baker [facility] 2021-05-22 2021-05-22 Travel 1.2.840.1 1.2.354.077 1101 [id number] Univers 00:00:00 00:00:00 22963.1.1 350.1.13.41 ity of 3.412.2.7 [place]7.3.698 [place] .3.756567 084.8 MD Baker [facility] 2021-05-22 2021-05-22 Travel 1.2.840.1 1.2.121.220 6710 [id number] Univers 00:00:00 00:00:00 20866.1.1 350.1.13.41 ity of 3.412.2.7 [place]7.3.698 [place] .3.609347 084.8 MD Baker [facility] 2021-05-21 2021-05-21 [facility] 1.2.840.1 [id number] 1 [id number] Univers 19:11:21 23:59:00 Encounter , Luis Miguel Shultz 38569.1.1 it y of 3.412.2.7 [place] .3.046707 MD Baker [facility] 2021-05-21 2021-05-21 [facility] 1.2.840.1 [id number] 1 [id number] Univers 19:11:21 23:59:00 Encounter , Luis Miguel Shultz 45852.1.1 it y of 3.412.2.7 [place] .3.140375 MD Baker [facility] 2021-05-21 2021-05-21 Travel 1.2.840.1 1.2.245.558 8764 [id number] Univers 00:00:00 00:00:00 55255.1.1 350.1.13.41 ity of 3.412.2.7 [place]7.3.698 [place] .3.913445 084.8 MD Baker [facility] 2021-05-21 2021-05-21 Travel 1.2.840.1 1.2.389.174 0538 [id number] [facility] 00:00:00 00:00:00 81512.1.1 350.1.13.41 ity of 3.412.2.7 2.2.7.3.698 [place] .3.271131 084.8 MD Baker [facility] 2021-05-18 2021-05-18 [facility] 1.2.840.1 [id number] 1 [id number] Univers 17:48:07 23:59:00 [place] Luis Miguel Shultz 14747.1.1 it y of 3.412.2.7 [place] .3.721422 MD Baker [facility] 2021-05-18 2021-05-18 [facility] 1.2.840.1 [id number] 1 [id number] Univers 17:48:07 23:59:00 Encounter , Luis Miguel Shultz 96450.1.1 it y of 3.412.2.7 [place] .3.178775 MD Baker [facility] 2021-05-18 2021-05-18 Travel 1.2.840.1 1.2.397.300 7637 [id number] Univers 00:00:00 00:00:00 97795.1.1 350.1.13.41 ity of 3.412.2.7 2.2.7.3.698 [place] .3.251171 084.8 MD Baker [facility] 2021-05-18 2021-05-18 Travel 1.2.840.1 1.2.471.389 1146 [id number] Univers 00:00:00 00:00:00 46081.1.1 350.1.13.41 ity of 3.412.2.7 2.2.7.3.698 [place] .3.748544 084.8 MD .8 [facility] [place] 2021-05-17 2021-05-17 [facility] 1.2.840.1 [id number] 1 [id number] Univers 14:30:10 23:59:00 Encounter , Luis Miguel Shultz 58860.1.1 it y of 3.412.2.7 [place] .3.799235 MD Baker [facility] 2021-05-17 2021-05-17 [facility] 1.2.840.1 [id number] 1 [id number] Univers 14:30:10 23:59:00 Encounter , Luis Miguel Shultz 10176.1.1 it y of 3.412.2.7 [place] .3.265794 MD Baker [facility] 2021-05-17 2021-05-17 [facility] Faraz Calderón 1.2.840.1 [id number] 10 [id number] Univers 08:57:03 14:29:00 Encounter 96928.1.1 it y of 3.412.2.7 [place] .3.634601 MD Baker [facility] 2021-05-17 2021-05-17 [facility] Faraz Burns 1.2.840.1 [id number] Univers 08:57:03 14:29:00 Encounter 81422.1.1 it y of 3.412.2.7 [place] .3.773097 MD Baker [facility] 2021-05-17 2021-05-17 [facility] Faraz Burns 1.2.840.1 [id number] [id number] Univers 00:00:00 00:00:00 Only 76137.1.1 ity of 3.412.2.7 [place] .3.014210 MD Baker [facility] 2021-05-17 2021-05-17 Travel 1.2.840.1 1.2.419.012 3238 [id number] Univers 00:00:00 00:00:00 82656.1.1 350.1.13.41 ity of 3.412.2.7 2.2.7.3.698 [place] .3.871975 084.8 MD Baker [facility] 2021-05-17 2021-05-17 Faraz Murphy 1.2.840.1 [id number] Univers 00:00:00 00:00:00 Only 16307.1.1 ity of 3.412.2.7 [place] .3.030691 MD Baker [facility] 2021-05-17 2021-05-17 Travel 1.2.840.1 1.2.901.890 8815 [id number] Univers 00:00:00 00:00:00 25695.1.1 350.1.13.41 ity of 3.412.2.7 2.2.7.3.698 [place] .3.352601 084.8 MD Baker [facility] 2021-05-16 2021-05-16 [facility] 1.2.840.1 [id number] 1 [id number] Univers 18:05:53 23:59:00 Encounter , Luis Miguel Shultz 27381.1.1 it y of 3.412.2.7 [place] .3.207070 MD Baker [facility] 2021-05-16 2021-05-16 [facility] 1.2.840.1 [id number] 1 [id number] Univers 18:05:53 23:59:00 Encounter , Luis Miguel Shultz 62236.1.1 it y of 3.412.2.7 [place] .3.740344 MD Baker [facility] 2021-05-16 2021-05-16 Travel 1.2.840.1 1.2.751.497 9683 [id number] Univers 00:00:00 00:00:00 55751.1.1 350.1.13.41 ity of 3.412.2.7 2.2.7.3.698 [place] .3.450447 084.8 MD Baker [facility] 2021-05-16 2021-05-16 Travel 1.2.840.1 1.2.423.899 9806 [id number] Univers 00:00:00 00:00:00 39223.1.1 350.1.13.41 ity of 3.412.2.7 2.2.7.3.698 [place] .3.304153 084.8 MD Baker [facility] 2021-05-15 2021-05-15 [facility] 1.2.840.1 [id number] 1 [id number] Univers 18:40:52 23:59:00 Encounter , Luis Miguel Shultz 14790.1.1 it y of 3.412.2.7 [place] .3.132167 MD Baker [facility] 2021-05-15 2021-05-15 Travel 1.2.840.1 1.2.581.803 2613 [id number] Univers 00:00:00 00:00:00 99187.1.1 350.1.13.41 ity of 3.412.2.7 2.2.7.3.698 [place] .3.287563 084.8 MD Baker [facility] 2021-05-15 2021-05-15 Faraz Murphy 1.2.840.1 [id number] Univers 00:00:00 00:00:00 Only 20082.1.1 ity of 3.412.2.7 [place] .3.165644 MD Baker [facility] 2021-05-14 2021-05-14 [facility] 1.2.840.1 [id number] Univers 18:32:15 23:59:00 Encounter 61463.1.1 it y of 3.412.2.7 [place] .3.474810 MD Baker [facility] 2021-05-14 2021-05-14 Travel 1.2.840.1 1.2.114.351 2404 [id number] Univers 00:00:00 00:00:00 71915.1.1 350.1.13.41 ity of 3.412.2.7 2.2.7.3.698 [place] .3.758599 084.8 MD Baker [facility] 2021-05-11 2021-05-11 [facility] 1.2.840.1 [id number] Univers 16:09:34 23:59:00 Encounter 41173.1.1 it y of 3.412.2.7 [place] .3.346084 MD Baker [facility] 2021-05-11 2021-05-11 Travel 1.2.840.1 1.2.993.985 4698 [id number] Univers 00:00:00 00:00:00 81526.1.1 350.1.13.41 ity of 3.412.2.7 2.2.7.3.698 [place] .3.096904 084.8 MD Baker [facility] 2021-05-10 2021-05-10 [facility] EL 1.2.840.1 [id number] [id number] Univers 13:16:10 23:59:00 Encounter 16349.1.1 it y of 3.412.2.7 [place] .3.661844 MD Baker [facility] 2021-05-10 2021-05-10 [facility] Faraz Calderón 1.2.840.1 [id number] Univers 10:34:34 13:15:00 Encounter 86681.1.1 it y of 3.412.2.7 [place] .3.167235 MD Baker [facility] 2021-05-10 2021-05-10 [facility] Faraz Burns 1.2.840.1 [id number] Univers 00:00:00 00:00:00 Only 54853.1.1 ity of 3.412.2.7 [place] .3.558377 MD Baker [facility] 2021-05-10 2021-05-10 Travel 1.2.840.1 1.2.021.476 5078 [id number] Univers 00:00:00 00:00:00 46216.1.1 350.1.13.41 ity of 3.412.2.7 2.2.7.3.698 [place] .3.929418 084.8 MD Baker [facility] 2021-05-09 2021-05-09 Hospital EL 1.2.840.1 [id number] Univers 15:26:22 23:59:00 Encounter 55887.1.1 it y of 3.412.2.7 [place] .3.948358 MD Baker [facility] 2021-05-09 2021-05-09 [facility] Faraz Calderón 1.2.840.1 [id number] 10 [id number] Univers 15:26:10 23:59:00 Encounter 20911.1.1 it y of 3.412.2.7 [place] .3.715506 MD Baker [facility] 2021-05-09 2021-05-09 [facility] Faraz Burns 1.2.840.1 [id number] Univers 00:00:00 00:00:00 ion 16148.1.1 ity of 3.412.2.7 [place] .3.725149 MD Baker [facility] 2021-05-09 2021-05-09 Travel 1.2.840.1 1.2.400.069 0914 [id number] Univers 00:00:00 00:00:00 62936.1.1 350.1.13.41 ity of 3.412.2.7 2.2.7.3.698 [place] .3.528235 084.8 MD Baker [facility] 2021-05-08 2021-05-08 [facility] 1.2.840.1 [id number] Univers 10:43:05 23:59:00 Encounter 24852.1.1 it y of 3.412.2.7 [place] .3.419451 MD Baker [facility] 2021-05-08 2021-05-08 [facility] Faraz Calderón 1.2.840.1 [id number] Univers 09:28:04 10:42:00 Encounter 04039.1.1 it y of 3.412.2.7 [place] .3.074260 MD Baker [facility] 2021-05-08 2021-05-08 Travel 1.2.840.1 1.2.571.528 1485 [id number] Univers 00:00:00 00:00:00 62522.1.1 350.1.13.41 ity of 3.412.2.7 2.2.7.3.698 [place] .3.395633 084.8 MD Baker [facility] 2021-05-07 2021-05-07 Hospital EL 1.2.840.1 [id number] Univers 19:22:44 23:59:00 Encounter 28964.1.1 it y of 3.412.2.7 [place] .3.350754 MD Baker [facility] 2021-05-07 2021-05-07 Travel 1.2.840.1 1.2.639.981 3066 [id number] Univers 00:00:00 00:00:00 23024.1.1 350.1.13.41 ity of 3.412.2.7 2.2.7.3.698 [place] .3.475118 084.8 MD Baker [facility] 2021-05-04 2021-05-04 Hospital EL 1.2.840.1 [id number] Univers 18:05:16 23:59:00 Encounter 80258.1.1 it y of 3.412.2.7 [place] .3.517171 MD Baker [facility] 2021-05-04 2021-05-04 Travel 1.2.840.1 1.2.142.778 8464 [id number] Univers 00:00:00 00:00:00 76489.1.1 350.1.13.41 ity of 3.412.2.7 2.2.7.3.698 [place] .3.739760 084.8 MD Baker [facility] 2021-05-03 2021-05-03 Hospital EL 1.2.840.1 [id number] Univers 19:23:00 23:59:00 Encounter 33097.1.1 it y of 3.412.2.7 [place] .3.142855 MD Baker [facility] 2021-05-03 2021-05-03 Jen Farah 1.2.840.1 [id number] [facility] 11:30:00 12:00:00 Mayela 96178.1.1 ity of 3.412.2.7 [place] .3.208450 .8 [facility] 2021-05-03 2021-05-03 Travel 1.2.840.1 1.2.105.636 2237 [id number] Univers 00:00:00 00:00:00 53304.1.1 350.1.13.41 ity of 3.412.2.7 2.2.7.3.698 [place] .3.089991 084.8 .8 [facility] 2021-05-03 2021-05-03 Telephone Lizeth, 1.2.840.1 [id number] [facility] 00:00:00 00:00:00 Chikis 97419.1.1 ity of 3.412.2.7 [place] .3.186339 .8 [facility] 2021-05-02 2021-05-02 Outpatient EL MDA MDA [id number] MD 15:33:13 23:59:00 Art rich 2021-05-02 2021-05-02 Outpatient EL BURNSFARAZ MDA MDA [id number] 13:53:20 15:32:00 Art rich 2021-05-02 2021-05-02 Outpatient EL MDA MDA [id number] 11:22:03 13:52:00 Art rich 2021-05-02 2021-05-02 Outpatient EL NANCYLANCE MDA MDA [id number] 07:36:18 11:21:00 MIYA Art rich 2021-04-30 2021-04-30 Outpatient EL MDA MDA [id number] MD 06:00:00 23:59:00 Art rich 2021-04-12 2021-04-12 Outpatient EL FARAZ BURNS MDA MDA [id number] 09:00:56 23:59:00 Art rich 2021-04-12 2021-04-12 Outpatient EL JAYSON MDA MDA [id number] 07:38:49 08:59:00 JUAN LUIS rich 2021-04-11 2021-04-11 Outpatient EL MDA MDA [id number] 05:58:55 23:59:00 Art rich 2021-04-06 2021-04-06 Outpatient EL JAYSON, MDA MDA [id number] 08:40:49 23:59:00 JUAN LUIS rich 2021-04-05 2021-04-05 Outpatient EL FARAZ BURNS MDA MDA [id number] 08:00:00 23:59:00 Art rich 2021-04-05 2021-04-05 Outpatient EL DIEGO, MDA MDA [id number] 09:38:58 09:52:27 ADAMS rich 2021-04-05 2021-04-05 Outpatient EL FARAZ BURNS MDA MDA [id number] 07:31:00 07:59:00 Art rich 2021-03-22 2021-03-22 Outpatient EL JAYSON, MDA MDA [id number] 10:46:14 23:59:00 JUAN LUIS rich 2021-03-19 2021-03-19 Outpatient EL [facility] MDA MDA [id number] 11:20:01 11:24:39 , LUIS MIGUEL rich 2021-03-12 2021-03-12 Outpatient EL [facility] MDA MDA [id number] 10:15:00 23:59:00 , LUIS MIGUEL rich 2021-03-12 2021-03-12 Outpatient EL JAYSON, MDA MDA [id number] 07:59:25 10:14:00 JUAN LUIS rich 2021-02-16 2021-02-17 Outpatient EL [facility] MDA HN Surgery [id number] 10:32:00 10:04:00 , LUIS MIGUEL rich 2021-02-14 2021-02-14 Outpatient EL KAYCEE, MDA MDA [id number] 12:40:57 23:59:00 KHLOE rich 2021-02-14 2021-02-14 Outpatient EL SANCHEZ, MDA MDA [id number] 11:14:11 16:19:35 NARESH rich 2021-02-14 2021-02-14 [facility] MDA [id number] 11:13:49 16:19:28 , LUIS MIGUEL rich 2021-02-14 2021-02-14 Outpatient SANCHEZ, MDA MDA [id number] 15:40:49 15:52:59 NARESH rich 2021-02-14 2021-02-14 Outpatient KAYCEE, MDA MDA [id number] 12:38:10 12:39:00 KHLOE rich 2021-02-14 2021-02-14 Outpatient LILIANA, MDA MDA [id number] 08:31:43 12:37:00 REJI rich 2021-02-06 2021-02-06 Outpatient SANCHEZ, MDA MDA [id number] 07:29:09 23:59:00 NARESH rich 2021-02-06 2021-02-06 [facility] MDA MDA [id number] 08:01:49 09:54:33 , LUIS MIGUEL rich 2021-02-06 2021-02-06 Outpatient SANCHEZ, MDA MDA [id number] 05:57:30 07:28:00 NARESH rich 2020-03-14 2020-03-14 Outpatient SANCHEZ, MDA MDA [id number] 00:00:00 00:00:00 NARESH rich 2020-03-14 2020-03-14 Outpatient SANCHEZ, MDA MDA [id number] 00:00:00 00:00:00 NARESH rich 2020-03-14 2020-03-14 Outpatient MALACHI MDA MDA [id number] 00:00:00 00:00:00 , LUIS MIGUEL rich Results Test Description Test Time Test Comments Results Result Comments Source POC Creatinine 2021-12-07 14:52:45 Test Item Value Reference Range Interpretation Comme nts POC Crea (test code = 0.9 mg/dL 0.6-1.3 Medica tions, especially 72967-3) hydroxyurea or supplements, such as ascorba te, [...] See_Comment Mattie l eGFR >= 60 = 89449-5) mL/min/1.73 m2 The eGFR is calculated usin [...] See_Comment Norm al eGFR >= 60 = 43994-2) mL/min/1.73 m2 The eGFR is calculated usin [...] reference range was not used to interpret th is result as normal/abnormal . POC Clean Dev (test Yes code = 6672) Performing Lab (test [facility] code = 87666) [facility] [place], [address] [place] [address]; Point of Care L ab Director: Latosha Hurley MD [facility] [id number] 14:52:45 Test Item Value Reference Range Interpretation Comments POC Crea (test 0.9 mg/dL 0.6-1.3 Medications, code = 06278-6) especially h ydroxyurea or supplements, such as ascorbate, c an interfere with test results causing a falsely and significantly h igher result than exp ected. If a problem is suspected with a patient's resul t, a sample should b e sent to the laborato ry for confirmatory te sting. Method descript ion: The i-STAT is a n analyzer used f or in vitro quantific ation of various anal ytes in whole blood. Th e device uses a s nellie disposable cart ridge which contains microfabricated sensors, a haily bration solution, fluid ics system, and a w aste chamber. Each t est cartridge conta ins chemically sens itive biosensors on a silicon chip th at are configured to p erform specific tests. The microfabricated sensors measure analyte concent ration by an electroch emical assay. POC eGFR-AA (test 71 See_Comment Normal eGF R >= 60 code = 63385-9) mL/min/1.73 m2 The eGFR is calcula bertha using the CKD-E PI equation. The e GFR declines with a ge. eGFR <60 mL/min /1.73 m2 is considere d as "decreased" Thi s equation should only be used for pat ients 18 and older. According to e National Kidney Foundation's dney Disease Outcome Quality Initiat mindy (KDOQI) classif ication and 2012 Kidney Disease Improvi ng Global Outcomes (KDIGO) Clinica l Practice Guidel ine, the stage of CK D should be categ orized based on estima bertha GFR. Stage Desc ription GFR mL/min/1.73 m21 Kidney damage w ith normal or high GFR >=902 Kidney da mage with mild decre ase in GFR 60-893a Mil d to moderate decrea se in GFR 45-593b Mod erate to severe decre ase in GFR 30-444 Marlys re decrease in GFR 15-295 Kidney failure <15 (or dialysis) [Auto mated message] The sy stem which generated this result transmit bertha reference range : >=60 mL/min/1.73 m2. The reference range was not used to int erpret this result as normal/abnormal . POC eGFR-IMELDA (test 61 See_Comment Normal eG FR >= 60 code = 51610-6) mL/min/1.73 m2 The eGFR is calcula bertha using the CKD-E PI equation. The e GFR declines with a ge. eGFR <60 mL/min /1.73 m2 is considere d as "decreased" Thi s equation should only be used for pat ients 18 and older. According to e National Kidney Foundation's dney Disease Outcome Quality Initiat mindy (KDOQI) classif ication and 2012 Kidney Disease Improvi ng Global Outcomes (KDIGO) Clinica l Practice Guidel ine, the stage of CK D should be categ orized based on estima bertha GFR. Stage Desc ription GFR mL/min/1.73 m21 Kidney damage w ith normal or high GFR >=902 Kidney da mage with mild decre ase in GFR 60-893a Mil d to moderate decrea se in GFR 45-593b Mod erate to severe decre ase in GFR 30-444 Marlys re decrease in GFR 15-295 Kidney failure <15 (or dialysis) [Auto mated message] The sy stem which generated this result transmit bertha reference range : >=60 mL/min/1.73 m2. The reference range was not used to int erpret this result as normal/abnormal . POC Clean Dev Yes (test code = 6672) Performing Lab [facility] (test code = [facility] oracio [address]) [facility] [place], [address], [place], [place] [address]; Point of Care L ab Director: [facility]os[facility]ovan [facility] (PAUL-CoV-2) PCR [id number] 11:28:59 Test Item Value Reference Interpretation Comments Range COVID19 SARS Pre-Radiation Therapy Indication (test code = 70771) COVID19 SARS Result Not Detected Not Detected (test code = 13513-4) COVID19 SARS SARS-CoV-2 NOT Detected. Interpretation (test Reference Range: Not code = 41328) Detected Methodology: The [employer] RealTime SARS-CoV-2 assay is a qualitative real-time reverse chief information officer polymerase chain reaction (braille teacher-PCR) test to detect RNA from SARS-CoV-2 in nasal, nasopharyngeal and oropharyngeal swabs from patients with signs and symptoms of infection who are suspected of COVID-19 by their health care provider. The [employer] RealTime SARS-CoV-2 performed on the Calpano000 System is a dual target assay with [...] CLIA-certified, high-complexity Molecular Diagnostics Laboratory (MDL) at [facility] under the Food and Drug Administration (FDA) s Emergency Use Authorization. Factsheet for patients: https://www.[facility]anderson.org/ AbbottFactSheetPatientsFact sheet for healthcare providers: https://www.[facility]erson.org/ AbbottFactSheetHCP Test performed by:[facility] [id number] [place] [address] [facility] (PAUL-CoV-2) PCR [id number] 11:28:59 Test Item Value Reference Interpretation Comments Range COVID19 SARS Pre-Radiation Therapy Indication (test code = 69606) COVID19 SARS Result Not Detected Not Detected (test code = 66599-9) COVID19 SARS SARS-CoV-2 NOT Detected. Interpretation (test Reference Range: Not code = 60114) Detected Methodology: The [employer] RealTime SARS-CoV-2 assay is a qualitative real-time reverse chief information officer polymerase chain reaction (braille teacher-PCR) test to detect RNA from SARS-CoV-2 in nasal, nasopharyngeal and oropharyngeal swabs from patients with signs and symptoms of infection who are suspected of COVID-19 by their health care provider. The [employer] RealTime SARS-CoV-2 performed on the [place] System is a dual target assay with [...] CLIA-certified, high-complexity Molecular Diagnostics Laboratory (MDL) at [facility] under the Food and Drug Administration (FDA) s Emergency Use Authorization. Factsheet for patients: https://www.[facility].org/ AbbottFactSheetPatientsFact sheet for healthcare providers: https://www.mdanderson.org/ AbbottFactSheetHCP Test performed by:[facility] [id number] [place] [address] [facility]ation 2021-11-15 03:37:11 Test Item Value Reference Range Interpretation Comments Submitted Clinical History [id number] (test code = 01122) mbGFuZzEwMzNcZnRuYm pcdWMxIHtccnRmMVxzc 0AnP3TbAzIdUXlmofYe XGRlZmxhbmcxMDMzXGZ 0bmJqXHVjMVxkZWZmMH zoZu5maZZwgJgtJdHvW WBah3ntrnVVcxyqoFd7 b1mmKORaJsM8sXJhTDq uN7lglmTzoSCqQIKbUG z1xR68DWXkvY1rjXNyG JadxpWdSeP1BNlmDHXu HsM6FIMvoOElIUFxU5i yZWQwXGdyZWVuMFxibH RdGBX1hJgzq9P2xVAwt GVldHtcZjBcZnMyMiBO e0FoNTh3yZynS0YrBWK wAaN8lINbWVOyTWhiQA NhQUZusuZ1yQ69CRklu jE1nINxk2Cdu76rd594 nI8zlUObAQR4DJZpDUX maWWnWALcXEI8DAHerC KhK9tbNHCxSA8mqextS MeeKMtwSDJcxNZ9RGGn oTAqP1AjASWaBWbaZQG zkru0KyDjQb9uzSSqnN fwHQadd6jxl4iqzSJzO bn6TMXiVcHuHchiAIgu o8Qhl6tjPOOcbn9wNGS 5dBYogDcma2G3dOLlCL OoaRTwtuKcHZVoBfB9U QrfMA8fyi89YRQmJSI5 qx7slMJltBdiygJsxBF qZTrhE4AsAXYgz934XG DwR5IjHJXve9S1hwNlM qWtEUCqbOR4prX4NXFa TBh1rXItzxY0mwCaoJG uR0pubP2cNMQgXF8xil qdw9smNUenCNbkGZEnu VV2vdD3ZIKnwFNcD1Wb eW7rJUGdKOaeSZJgwim 8KdMrFl1vjKIccScfUH xzYmtwYWdlXHBnbmNvb nRccGduZGVjXHBsYWlu XHBsYWluXGYwXGZzMjR fwKfglYkhiM4kSqOmKo UvIIzpTD8kNTVhD4gee XXtJMHtPODsE5qaPsMx fV2fcOloJFhuuqMlZT2 aiXRvoDIavKAbeI9gcM VhZCBhbmQgbmVjayBse K2huDQwz0OpXPgIEzyb BM6kvMFrHSGckCXkm7T kGXSfxWswM9OhH8lwm0 9oZK1aIOQwdrr5HONbE zAyLjldXHBsYWluXGYx XGZzMjJcbGFuZzEwMzN caGljaFxmMVxkYmNoXG BrQTjnN9koRfDeTpBrC nitSNS6lJ== Diagnosis (test code = 34) f4razXLmCKFvwPW9IaJ jMVLli6wrg0XcwRKyqD MhBHechYLqiaDqrs46i AA6mS98KY0iDODsDrI4 BISjclE5Rtc2PERuAYE jgTNtJ200e3xmw0mfvt RgsLY1IEEbYEZxS8CyV P4xZXIarPUcG59qhJNb ANV9IOJaLYIiqWQnWQF sRLZ0FPCguNAmH4ddOP NrCV8brrctLCteQSliP MKolOY1OWDcbAVsU7Kg KNSaJVewFVJwzqs1HkY sPd0jhJVrmPjkAHglYN JkXHBsYWluXGZzMjBcY 0NvQBA2GO8sR8tsMDAd P9h8NMJakBrleDDeDXP eNFMep0VuD4Lqs47wbO X9QOggSzJ0VNEfzxqdd QilZZmtfK24RgFeD2Va SJ1FOXCESYDGMQMxJ7Z ZYQ8QXIYbU9FKQ9zRS6 9PQStZFo6ALteNHeXLO H2LCW3ICBahZbZNJj2O QVNDVUxBUiBBTkQgQUR NCN2NVZBWKTEWNADMNK Rfhan9QMUdZVS0IWO4Q GRgJdA4oD5okwTpgZvk OiAyIGNtLlxwYXIgVHd fOEd1vCGxXD7vJBDgFY JxMFoceKk6PAPru7Kep WXjs9RicJDfTAQdDXIs r77wIE47LWVvftwzMMT kXHBhciBNRFcvRkFTMl xwYXJccGFyfQ== Comment (test code = 9835) q5wmrACuTONqwHC9PzI rLSEyn4yro6GwbJIrzG OrCTkmeLRkksMjgh42f RN2mJ41BJ1zWDFtOrX8 LBVzpiL2Idw9BQMeWHC ttOZlD008h1cud0apeo CduDD1tBpjECGvhuvtT lI7HXyoUTEpatwhABn1 ZCgfJOZehEL3ARBxjKC vG7TlGZQxZL6tmtj8YL U9ESdnCOPsEtF6SOHkk IQfJUDnpLegAKejx306 GWQ5BjYkWXUpwtObtWk meV0oYoBvHNFNuUYgqH PinzEtYRVoJCody1Gdc SByZXByZXNlbnRzIGEg C47mcMvuqJMnqEJjDWN jIBMeWARadX2woLQmv8 RoICawpVamV1Mwu4ChK Bn2pgNjf9ItwIXepNEc irXoe75liL2xdDTklO2 sPNWjBPY8leEnjS9rKR 1cjvKjOWX7llItVVBtX FxwYXJ9 Gross Description (test o3gnpMYwNZHzeUQMFVp code = [id number]) wMVxhbnNpXHNwbHRwZ3 VmejjsMKatNL1eZA0ky BpekCPdwPMuJM0PSSRg ZmYxXHBhcGVydzEyMjQ zTNAvsUGhdZW5DKJbIJ 1hcmdsMTgwMFxtYXJnc eM2FZLgeMLuK2ZhBLRb PI8lvioqJYC1TTvfhO8 eepMUSpgvKd1jrIDzjB tcZjFcZmNoYXJzZXQwX LWcbPcjIUVdSSg6bQ3K FmtgA36sq5W1Wuq5XPH sCMDiV0JkZA7oBKNblR GjK00UPzgpYER8LYBVP rgkRXBnAL9Cq4ejQPZn nPXuOSS7MQapxJHzSMI tPOOvZYa5ADEtLFmdgK ZmYN9isJquOfjovDsyt 2VjdCBcXGlkIDUxMDAy STvvACGnGB0KCnYkCGO 8HBRbOCRnHQz9UCs7KJ 0SLbNaUDHvDIM3BTO6P YCuNJp9PYozYQ5XUQDe QfZ6RmE5DuKaBGKdKRq aMRf4OUHcHLsmDUOftI FsIFxcZnMgMTAgXFxmY cLcHSHdOEjpfxQ5LNSv YWluXGJcZnMyMCBBOlx iSWXmAWhmdQucdC7lPI HvZ25il2QZb5XqFX5IM Dq5phIvadamxI3yXSZi cnQnINjqhGTpI3pbNrh jZjFcZnMyMCBOZWNrLC ByaWdodCwgcmlnaHQgb pTektCpfLVaOAJ8eQ6f ZZpcckLcEUCuGP6dp5G bUR4qeISxrKCoZE18IN xjYfPrBspvILOpA06gn 8ovxEZou5HiRG0dlE1d jxwrydVkNHSuu8U3wN2 pSR7xMWjmzGsefn61qJ r2GOQtuWFrz6QciZR2Q VYlb6O4JGIexwBdt12n oGilRK7khU26EU8zAC1 7z5TrNMMrAP60EXufPi 5qRXdnMD50LMGtQV2na GluZSBcdGFiIFRoZSBz oLBqeD8yxwQowrOeZXK 2fC4aAARejB2tgvX2II JjVWTduE4ul0larZKbl FZmFPS2GE5gfMvqlgJp vU8dtVFql2JnnjTrmzM zR8pmOgOxnc1xMOMlUN 0fXZTqQFtjOApbHVK0U ND5TJUlfPAyz8ixcnX2 uPU0fjBcDgPjpVWxUoo uzSPjDfWqI48iXyUxAO saQJvscswrf5TaoVpys Gwihy5rEKPwwyFrSKS9 aB2oQEJhjU9bgyP0ITK oERJcNomhqEG9aSy3XK 65VD7mL6Z6HBQ4gsIoS 2Jkw1r8nUUnIVLhaeAm QLxfC1L4yFT9YVFuacH jvX2eydhlOSEiiTUyoA UiiU04uoJao9XudsRhX IWxbh53pjIlvTsyNRKn kRrbIhUxJAklOPU5xX6 oGMplfYqhbiA2sRMuxS trzQfdnf1iPXTbvHDcA XJzIHRvIGJlIGluZmls dHJhdGluZyBpbnRvIHR eESEmgFSto4FxOFvmSp UfPZncs5CwLMNjs4K3I Y1qvVGlHU3UXDMxPnLZ HWPVKY0REABOYCO7OLO aIQOyQQHzg9TsQdkuNI e3aTUeND6pREN1TAGcJ ZYwPXIiuV7sk8xxuBMi uOdbiYraeq3mCRXtbGE nO7AzWAZgovMuMFQlZS Npi5DlsTMgYoWHRR29L CByZXByZXNlbnRhdGl2 FSAkFYH0kC0hbpXnnp1 bUAqzfbmey2TiQ1Ydq4 SlyXRnh2UemTj9XAGct D7iwHPtr8KbWvXrZRDe w1TbK9Z5BCElVXens6h kYFIhEDdaa2XeQBeKXI ZPJM0WDR3fzMA7RCaSM 0PVJ3xZtDYvRMU8pFZ0 NNDKAjkhwWV8rDT1uT7 7GHNuDHPeiQPwDFkjZ4 52WRO3YHAvGIxjq3xmY FChOGfkg0KuXTnEBOSC IZ5EBV3eaDT8UMsHC2K ORHwyMTAxNnwxfFVTRV M6XVeqeLieaKa0c8blj HTub5v8UFcvVTK9iZhz bGFpblxsdHJjaFxmczI lOD0TSKRlpOVBKKC8JQ 3mGZn2SYbnSBWpV1WrX 3RlbmRccGFyXHBhcmRc e9dwKCZ8EILogYDahBN dAsGeAjktWQP2UPKeLH soCQ0PTAQlMIR1NFrdh A03xMOtYD0SBYPnJJoi ZVFaJIYlcnU6TIKtxQC gANY9EB7xnChkeSDght dpbqB2FX8ZiG== Disclaimer (test code = z4hbuEFoNLEkbBVkYqU 9844) mBOBhSNSme4ieDXAfqE FuZzEwMzNcZnRuYmpcd UYgANEtFjGpa7wam237 yKTot5ekORDzZuG9kGI yYGYxqYAhI325EJMgLP qjk9cdq8VyEDOzyBDzm 4G9WYGUrwnyyGu5mWup W68iv9S4NgafR5npAOV bBNNdL7JtIJ7mXFUjFt v8XVX5UPU1NIAuENStE 6NlAG7tQXVaaXOaSXs0 o8uffPpqECBfKCJ9n9f pMQipblQhGL8cpw8aoO s9i5wlkwIsBOEbMUOdg RDYLWSmQ0JkqMyhIt2t bPl1sQfqJpukSGN4Sur 0LT2jjx80unp5wSpwZT BmuqwrUdD8PQyfEJKni plbPJv9PFleADKhqOZ5 HTPblHDsL7HgYKEaVW6 ymvt7AFG0YSdsWPQhYp J8AAPiwBCaDQKenIuwD Syum286NPJ7WbRbID7j J6Hwe2I4kZ0btQCqXCZ nkLVpYdPzPIWfwi8jvP IkQAaqe1KxFQK2cdY0q SAqwRJiCEIeOF33Qzqb c9YzYkufWZP6DLXqhgG gs8Yah0kmUdNtsaXgS0 dwF6DqXTEkDCLqGNFfL gGvqfQck1Wdf9OmvOJk yAf9p3mzULVyNBKlzSj dy3nbWIZ8CDHwO4J0gW Wvo6adFXhpCFRvcYO1s zR4JSByyLMxL7KknG4b AOGbUY5enip6t7ycOMG 7PVwfZFHdNkI7mlD5CN BcaGVhZGVyeTcyMFxmb 185WXI1JlKuRMGgh9So S1IbvRphH59eoRdhO04 iSFPumDpcyW4cjBawdL 5cZjBcZnMyNFxxbFxwb BMyanquBYdxonT1ZHhc hmodMZLgOCloX5ttEoZ fMSYvnBepIDgso4DyFA XoHPRjXfnwvsT9MUJJp 74mCFKia2GpDVNlpE8e hJPwZEcunoValPO8RRj hdmUgYmVlbiBkZXZlbG 7eSVFnWV7lBWKfhpUio m5ujnLfKILjYVFoQ1Ui cmlzdGljcyBkZXRlcm1 khsZdPEV4AXCASG6WGK AoVEDhp32eVCWksQoxr Y8sfJZtitDuDDKey0Dk tE1fwRQJRKJpN2hrGT9 vFRqbs9IhgEXbtLIjrO S5VDKiq7CtRzZwzuZzp LXguOEvV1YjgUyiE0bd CKLjZABfwnYojHWee4B yWWZdvGD3zGJrQZ9EMq DZc90kLQRkWWQZisJjR GPmrTeulTT7mtV1uL9d LiBJZiBhcHBsaWNhYmx eIQQgw624xv7tfbY3ST NcGWGxmthga1AzNHMaH XVtxL94FRUeYNFfpq9t kcxzbZZgnrSbJ5Jajfw 6uK1tGIRoSOdgLNKvZD ZzMjJcbGFuZzEwMzNca GljaFxmMVxkYmNoXGYx OObxU7hzBfBgSnZuXnp wYXJ9 [facility] Interpretation 2021-11-15 03:37:11 Test Item Value Reference Range Interpretation Comments Submitted Clinical History y8pikSDcKQOvk4guJBE (test code = 10129) mbGFuZzEwMzNcZnRuYm pcdWMxIHtccnRmMVxzc 1YeB5CzZtLmUSmxdnAi XGRlZmxhbmcxMDMzXGZ 0bmJqXHVjMVxkZWZmMH utWf7ghSOigWunSsRfO TBkt5yzivLRtobaeUe2 a4gzKQRxPsU4iAVsIYt jP2mmksWshUVnJQXoSZ r6gI12XPJhwF1zsWYwW ZitwzYcNuK5XGchXXDb UwR3LNIcrQObCEZwX5g yZWQwXGdyZWVuMFxibH ZlKYQ1eTsfc3C3qVZgw GVldHtcZjBcZnMyMiBO i4AvZVc2qFyxZ5LxGMG eScE4qESqQHSrZSipJL IhEDJhltQ4iR57WCiuc hS5bXQvq0Sik56qh117 aJ7otCWzEIU6KWAmIRJ eqNIqAGGaBRS2TQXndD EbO3erUJWxUF8aclsxG FqhHJeaCVUqiQI4VXOx iIVcN9TwUVDjESaoUXK fewi7MdHsPc7dgGDvtO agVAvcl7ksl5ixzSHyE jo9JKDuVmGfQmjuZQks t2Lvv4jgDKTvud9cXUZ 7vPDbgTgsa4A0gZOpXW PzoYPbduOlVCUiCsI7D MtkBV1tth37ECHvVHW2 hs8umHEdnCwalmLiwMZ jVZzhO8CpUTZhz235PF BpK0UlMKGsw8M3rzYqS eYxXHVblXQ4ixO9CPKd OKy8iNHiboM8tcIofFF hV2rusM5lNPEqUT7hzp xrc2rcVLxhHMpoZTIgq EI3hcX9SHSleKCcS7Zd gH3dBGScSIqrJSGvfnm 9NpWdGw3noSHzsRhvHK xzYmtwYWdlXHBnbmNvb nRccGduZGVjXHBsYWlu XHBsYWluXGYwXGZzMjR szFueaLcytU5vGxVuVq SaZSnjVM1pSRHpH9yyq MWnOZHjXMHzU3enUtZm oM4jlRwmKFatiaQlPV6 lrUWvbZWgcXKwqP1zaR VhZCBhbmQgbmVjayBse Q6dfCNrk4ItQSiRPfhd IM7rsXLlHKQkkGYmk0B wFIYsdQscE7MlE3ofu5 1iCA9mZMUymel6URHyG zAyLjldXHBsYWluXGYx XGZzMjJcbGFuZzEwMzN caGljaFxmMVxkYmNoXG QsDAlfS8wxYhLsHkIvB iivNNX1cJ== Diagnosis (test code = 34) i5hpqKRiDHJhtZV5SgR mOPFqd4wrr4XdyDYzeK FrJDjbbECjdwVuqq72v OF0mY33LK8jUGXnDvW3 EACuzxD2Aty1MBCgWWF iiRYxW137m6pka2cesk XmiZX2DDXfWXFwZ7JiD V8tNXZzeJDkC94hqJFb UXT4RDGvQTRoyCDtOVB hQGN4YEOxgQTyJ7rlXR IvZW7yciejXRseAXgrL XSnuIF8ZRNrgZYpB8Vy UDZaYXdaVCNoipl4KaP sYz3esTTcgAphIKlzOM JkXHBsYWluXGZzMjBcY 9UaLMH7VS4hC0atIJPz F7o1PBCjnDtuqQQuQHA nTZWzh4HuI0Xbz68aqK D4SBwzZvN8FMMmivcef NgtPAfjeR63NbLqR2Be MK9QDIIPCUGUNXRhN7R EXT9VEOBpA2SAI3qQM7 3BUXvUHo0LWywEIlKST P0DNP7EGZewSlGQXc5C QVNDVUxBUiBBTkQgQUR FHB9KAACIUOHAHRKGUR Layio8YPBmGAW3VLK3D CXtYcD9uJ8mcbYrjTyc OiAyIGNtLlxwYXIgVHd uWJe9sCOlZN8zADJvWQ VzXIbuhHf4KZItn6Uzc EPfo0XehNPaDLRgJRHb v49eSP44UVCwznjfOMY kXHBhciBNRFcvRkFTMl xwYXJccGFyfQ== Comment (test code = 9835) w5gqoKNyETXbhVX5PtY kBWEmf3bcw2KpwROloI AuESyfvKTrhmDezw27c HQ9tD85YK6zWCRdAmS9 EWBknsB1Zpn8WPObBAN faJCtY475h6dqz7zibb CqiMJ9aXhcBKAcznqsU qD5KUmqDHNzckghQKk4 PZkbYLIbrNL5DATupYX hV5XcMFVgYL9wtpv4VT V7TNwjBKUhDqP8IIEqr QZqDHQqnMyrFPrje573 GTO7VyXsBRUjuyXpfUu gnR6tAyOaCYADoEMqaU CloqGsKZAvEDxqt3Nkv SByZXByZXNlbnRzIGEg B53adJwquDYibPSoKPN vFIHcQYKzfX3yeBGba7 OnLKoquUfuU1Ybw9AxU Za5dbNkk6HjbIOhxXQp exZpj75zkJ9leMCulO1 kYIXrBNO0yvLupA0aBU 4rsiGbHNB6rpNgJWVcR FxwYXJ9 Gross Description (test s7twwBGdQOVbpGMEXXy code = [id number]) wMVxhbnNpXHNwbHRwZ3 FxhvotURmfSY4fPL6kk VpoiFXuxAQgTO2DBYVp ZmYxXHBhcGVydzEyMjQ wDSTgaYAezKK4QPNuGP 1hcmdsMTgwMFxtYXJnc jD7OPZmcHCyF5TbRJUl FO2xdezhYOE4PGpwiC9 mwcSHOggsUn0fyBDqnW tcZjFcZmNoYXJzZXQwX RUhjEnyMHCaYFx6zY6U DqexC95lo4R3Yhi4YQC dNASoQ5HfWH7jMXOicL ClZ11PKxiuUBW5OXSMV boaMFEgIG5Ep9uqATKz iHXnTWB4FDxrnUViIIX rXUJjFMs4QLWzNBzloJ FnIR9woWhrWqmrzGrnk 2VjdCBcXGlkIDUxMDAy ZCptIBTjHZ6YVwUuSBD 8TCBjROXuSEu8TJj7NP 7EXcUjIHXxDTA0HQH7K WZuXOz1WFzyAG7JDXNl CwY4TpV1MmQcKAPaZLk mXYw7WOHsXHdfNWXdgX FsIFxcZnMgMTAgXFxmY jVqJAGoMFbybdP1SCTt YWluXGJcZnMyMCBBOlx dWXBzAXsygGtjbB3zHC QzM29jd4JFy8MlZL8YU Zx0yqBbgfhvdX2yUGHp agKjWLcccNNpQ0rfGtf jZjFcZnMyMCBOZWNrLC ByaWdodCwgcmlnaHQgb qYoxmWvhPRaMQW9lY4t RQcwssYwHBWxXO3sa3V aVC7hsPGzoHTiTO76HL ngWiLfPrlkCBTtG88rc 8lnoQWhu3MhOE4ioU0y kpdwwoWoEJVll3L0bR2 dTB6lBGpkgWtlax22eH z9CKPwxJWfg6XduNY3T MJrw8D1GLWrglCyd89e eXumDE6ysK21JH0jPF6 8u8RnWJXgNQ97HSinHk 9kVAduEN03MRNiRM2qk GluZSBcdGFiIFRoZSBz rRNkcX5lmbQocmZqXHR 9dO3wJYZppF4umaZ8LG QqCCGkeR8yu4rkpEHnb NPpERQ3AC8hhYohtuJh sH5gaHMpc3TbimHjxrZ zA4nhRnPdoe9bWDViFM 1mYCCoIRroVXinAPQ8V IU2RADniCLps6ujjiA7 ySI4lvJoLdIujADeSbj ffVCoRoHlH62jYiSzQF yyKAzvdxfzt4BrjMhud Cicdf3jORWhpkOfCYJ6 uP2pWPOpjG3fiiN1SVO hRETaFypouAU2wBs5BL 93MC9pS3F8FVR2vsGwD 7Nag4y1tZRmNLCqgiUb SWbeA9O9eST0TPTeboY nhN5cwkeuVYFamUGlfH AazS13jlYzj4KseuIkU BYxfy53qwMdnHeeJQZr wPegScEkAYvjWAB0bB7 nMMnspXkimtY5vWPhoK xhwSlnaq7iMUJhiXPfX XJzIHRvIGJlIGluZmls dHJhdGluZyBpbnRvIHR kLULnnWFwo9UmIFuaMk JxTRigy1QnPELkq1P6D E1wrMAeIL2REGDhXtJV XYQXGX5LVNCMSQW0STC kEPPkVEDyz2BnUmocEV s8zVUlNL8nTTS2PDHcZ VDoJXVywV1di5rdfPLc oKmyuDtkth5mEKNoiAV lM7KkILOebqLbLOSmMM Ajl4BopJEeKfMWKT65T CByZXByZXNlbnRhdGl2 KRLxDOC6bR1lurNoez2 fOKfkilrcz4GnF4Azu3 QghTIto8JtzLz0UEHgw A4rcWHwl6AvKpGkARKo l4BrT8H9UYXbAPnhj2y lOPWyMXtdi8GoNOmXEB BGQI6XFV8mxTW3MAbEU 2XIB1nDoNCsBPF7xOU8 HRSGWqzoxIW7bVL2aM7 0SMDiSABpiIOsPGiuW9 07AVD0BRDpJCcym9atX UIhSRjxs6LaUGrZYMEX RH7CTT6xiBV0HIkIX8Z ORHwyMTAxNnwxfFVTRV F2BFrmtBgpkNt9u6xtt YTcw6f0LYeuTEN8cEmz bGFpblxsdHJjaFxmczI rIN0KDMEglGBHEBY3RY 8lGOm6UDzqANAlH5FpM 3RlbmRccGFyXHBhcmRc l5bwZAF8THWdrFGdmQM tRdFcNtzyPAR9MZXzCA ryFM9OCTKtMVX3RKdva U04fOQdDG5YYTZiFBxx UDIdPGAofuQ3XJDyyBR rDQH1XH4mdBfsnEMivt aioeK4KM4NwR== Disclaimer (test code = w7qyfBWkKAGcjZPrJxM 9844) cVXXgEMItj8izEKTmvQ FuZzEwMzNcZnRuYmpcd AGxHAIyCrXmp1mxm899 kUJbf1noPJHcXjS1xFY tFFMsjTDbU830JEQsAQ ndm3dtw2JzBMUilNGxh 3C3ENWJgiekmTq8fEkt Y91il9U3FbraK6pzDOG kVNUbF8OgMC0yRBZzJs c1SZO5MXX4FETjFXQeQ 7CeNE7oFBJigRApTAw8 g9pzoOcyJVWaCEG5z7u oFOeygrGbTD4nqt1jiA i6i1jhgyHqGPMeNAAoa FMRAVIgM1CnlPzmPx0w iHc1aTmdLadyLDB1Wuy 5BK7unp20ukg2xNpeVU NbbofaUvN8RDwqHEIeb qopNZa1CJqxHAPvfJH2 XCUifFRkX4ZwKTTrAP2 yfsc5KAQ5WKblERFjXe M0QQEhtEBvCEUvxIzxP Eekk578ZHU9AyCjQO3q X4Jqi1R5oT1sjCPjWLR nrTIzLsBrRYGmea3rlQ BiXDzae5XuSWT2faC9c KBfuLIlWDPhYR63Ftyn f4CfYdpgDUC4ZPUyebV kg1Mqr8ckXtZzxeMmP5 rwY8CnQCIpTEMvLAWhO yQtvfFbh2Cdm6AekRFr kAs5s8qsTUDwBKQfeYg wj7feCMY5PEFgN8Z5yC Kra1viNDftYZTsbRN7x fH9BIFihJMtD6EccS3g WOAqDN5qjhr0l1zbHSW 7UZerACIyFrF9ubT2WP BcaGVhZGVyeTcyMFxmb 732SHL3TeFaGFAao1Sf Z0OusDmrB82rwQovH44 qYZEmoWzzmN7vjVkvmS 5cZjBcZnMyNFxxbFxwb TVghcjeLLmmnqU4KOzi vfvdGVPyEXunS4uoMfU yIHMvqDosTDxve7EwKT TgRSPqSkrtzmV3EMDOh 05mZYYrj5GqDHHckP1v vQYgCGrjekKbnKN5PVs hdmUgYmVlbiBkZXZlbG 7yJJOnTB7cOIYpldNnz n8rypCbAMPcIUVgY8Au cmlzdGljcyBkZXRlcm1 bgnVeVIO4YKGSFP0PHR JbTDKhh10uXPFyxDydn P2gfJMrbqGwUEKnp3Dc qA0egEUAWXOaP0akTQ4 zVWfar0IpoRElpMJsqQ R2VSJuw8LrQoNecfIac UYksBSmF2JiwInxN2xy XCKgPNSgpcFziRJka1L cMAWcwST8rSOoIA3BAo CSl19dATKzVVTBxaNaL MKkiMacdLN5teR3tF4f LiBJZiBhcHBsaWNhYmx nODYjg273xf0pptT0ON OsWSIiytwij4KpKZKtH NEchA08FFMoVINwra9b axxfvLUdejQdN1Kdeyg 3iX8wJQQcYLrhPDIdNW ZzMjJcbGFuZzEwMzNca GljaFxmMVxkYmNoXGYx XNooV1hhCnPrGmKwBch wYXJ9 [facility] Antibody Screen Lfqaiqpz0366-83-05 21:59:37 Test Item Value Reference Range Interpretation Comments TMP Auto Neg At the present ABSC Interp time, patient (test code = plasma shows no ____MAYRIN C ORREA 7535) evidence of RBC MD AMRIT, P hD - alloantibodies. [id number] d by: Lexii LINDSEY, PhD - [id number] D ate/Time: 11.09.2021 16:5 9 PM CDT Transcribed Antonio e/Time: 11.09.2021 16:5 9 PM CDTElectronical ly Signed By: STAN MARCUS MD, PhD - [id number] on 11.09.2021 1 6:59 PM [facility] Interpret[facility] Antibody Screen Ytytgoar4311-78-13 21:59:37 Test Item Value Reference Range Interpretation Comments TMP Auto Neg At the present ABSC Interp time, patient (test code = plasma shows no ____MAYRIN C ORREA 7535) evidence of RBC MD AMRIT, P hD - alloantibodies. [id number] d by: Lexii LINDSEY, PhD - [id number] D ate/Time: 11.09.2021 16:5 9 PM CDT Transcribed Antonio e/Time: 11.09.2021 16:5 9 PM CDTElectronical ly Signed By: STAN MARCUS MD, PhD - [id number] on 11.09.2021 1 6:59 PM [facility]14 Test Item Value Reference Range Interpretation Comments ABORh. (test code = 882-1) O POS [facility] 20:06:14 Test Item Value Reference Range Interpretation Comments ABORh. (test code = 882-1) O POS [facility] Expiration [id number] 20:06:13 Test Item Value Reference Range Interpretation Comments T & S Expiration (test code = 11/12/2021 5318) [facility] Ex[facility] [id number] 20:06:13 Test Item Value Reference Range Interpretation Comments T & S Expiration (test code = 11/12/2021 53) [facility] Eruiqh7261-15-88 20:06:04 Test Item Value Reference Range Interpretation Comments ABSC. (test code = 890-4) Negative ABSC [facility] Vypavw8142-10-98 20:06:04 Test Item Value Reference Range Interpretation Comments ABSC. (test code = 890-4) Negative ABSC [facility] Glucose Fmderf2991-03-09 16:15:26 Test Item Value Reference Interpretation Comments Range POC Glucose (test 104 mg/dL 70-99 H MD Guerrero dCapillary code = 74903-9) blood sample s, e.g. obtained by fingerstick, [...] Capillary code = 9554) Performing Lab (test [facility] Main Main Ca [facility] code = 25758) [facility] MD [facility], [address] [facility], [place], [place] [address]; Morning [employer] Producer: Mikayla Cao MD Lab Interpretation Abnormal (test code = 59791-6) [facility] Glucose Kqmlls1946-95-98 16:15:26 Test Item Value Reference Interpretation Comments Range POC Glucose (test 104 mg/dL 70-99 H Notifisabella dCapillary code = 29831-1) blood sample s, e.g. obtained by fingerstick, [...] Capillary code = 9554) Performing Lab (test [facility] Main Main Ca [facility] code = 90738) [facility] MD [facility], [address] [place] [address]; [employer] Producer: Mikayla Cao MD Lab Interpretation Abnormal (test code = 61220-7) [facility] Gpikd4897-94-14 21:17:20 Test Item Value Reference Range Interpretation Comments Sodium Lvl (test code = 138 See_Comment [Au tomated message] The 2950-08) system which nerated this result tra nsmitted [...] [Auto mated message] The ) system which nerated this result tra nsmitted reference range : 98 - 107 mEq/L. The refe rence range was not u sed to interpret this result as normal/abnormal . CO2 (test code = 25 See_Comment [Automated message] The 2028-03) system which Protek-dor nerated this result tra nsmitted reference range [...] to interpret this result as normal/abnormal . [facility] [id number] 21:17:20 Test Item Value Reference Range Interpretation [...] to interpret this result as normal/abnormal . [facility], [id number] 21:17:19 Test Item Value Reference Range Interpretation [...] is associated with increased risk for diabetes [facility], Ouvwgh2036-48-24 21:17:19 Test Item Value Reference Range Interpretation [...] is associated with increased risk for diabetes [facility] HospitalGlomerular Filtration Rate 2021-11-06 21:17:13 Test Item Value Reference Range Interpretation Comments eGFR-AA (test code = 65 See_Comment Normal eGFR: >= 60 03165-3) mL/min/1.73 m2N ote: The eGFR is huey [...] failure <15 [Automated mess age] The system [employer] generated this result transmitted ref erence range: >=60 mL/min/1.73 sq. m. The reference range was not used to int erpret this result as normal/abnormal . eGFR-IMELDA (test code = 56 See_Comment L Normal eGFR: >= 60 81809-7) mL/min/1.73 m2N ote: The eGFR is huey culated using the CKD-E PI equation. The e GFR declines with a ge. eGFR <60 mL/min /1.73 m2 is considere d as "decreased". Th is equation should only be used for pat ients 18 and older. According to th e [employer]'s dney Disease Outcome Quality Initiat mindy (KDOQI) classif ication and 2011 Kidney Disease Improvi ng Global Outcomes (KDIGO) [...] failure <15 [Automated mess age] The system [employer] generated this result transmitted ref erence range: >=60 mL/min/1.73 sq. m. The reference range was not used to int erpret this result as normal/abnormal . Lab Interpretation Abnormal (test code = 13067-1) [facility] Rate 2021-11-06 21:17:13 Test Item Value Reference Range Interpretation Comments eGFR-AA (test code = 65 See_Comment Normal eGFR: >= 60 60714-2) mL/min/1.73 m2N ote: The eGFR is huey [...] failure <15 [Automated mess age] The system [employer] generated this result transmitted ref erence range: >=60 mL/min/1.73 sq. m. The reference range was not used to int erpret this result as normal/abnormal . eGFR-IMELDA (test code = 56 See_Comment L Normal eGFR: >= 60 90331-9) mL/min/1.73 m2N ote: The eGFR is huey [...] failure <15 [Automated mess age] The system [employer] generated this result transmitted ref erence range: >=60 mL/min/1.73 sq. m. The reference range was not used to int erpret this result as normal/abnormal . Lab Interpretation Abnormal (test code = 43334-1) [facility].Serum Jilbmdrtef3516-35-14 21:17:12 Test Item Value Reference Range Interpretation Comments Creatinine (test code = 2160-0) 0.97 mg/dL 0.51-0.95 H Lab Interpretation (test code = Abnormal 20538-5) [facility].Serum Anfasflvoi8935-02-39 21:17:12 Test Item Value Reference Range Interpretation Comments Creatinine (test code = 2160-0) 0.97 mg/dL 0.51-0.95 H Lab Interpretation (test code = Abnormal 81988-4) [facility] HospitalBUN2022-04-[facility] 21:17:11 Test Item Value Reference Range Interpretation Comments BUN (test code = 3094-0) 21 mg/dL - [facility]BUN2022-[facility]-19 21:17:11 Test Item Value Reference Range Interpretation Comments BUN (test code = 3094-0) 21 mg/dL - [facility] HospitalHemoglobin [id number] 20:57:54 Test Item Value Reference Range Interpretation Comments A1C (test code = 5.6 % 4.3-5.6 HbA1c value s >=6.5% are 4548-4) diagnostic of d iabetes mellitus.Diagno sis should be confirmed by repeat testing.Therape utic Action suggested: >8.0 % HbA1c; Goal oftherapy: <7.0% HbA1c [id number] 20:57:54 Test Item Value Reference Range Interpretation Comments A1C (test code = 5.6 % 4.3-5.6 HbA1c value s >=6.5% are 4548-4) diagnostic of d iabetes mellitus.Diagno sis should be confirmed by repeat testing.Therape utic Action suggested: >8.0 % HbA1c; Goal oftherapy: <7.0% HbA1c [facility] 20[facility]35[facility]36 Test Item Value Reference Range Interpretation Comments Neutrophil % (test code 60.6 % 42.0-66.0 = 770-8) Lymphocyte % (test code 30.6 % 24.0-44.0 = 736-9) Monocyte % (test code = 6.3 % 2.0-7.0 5905-5) Eosinophil % (test code 1.8 % 1.0-4.0 = 713-8) Basophil % (test code = 0.5 % 0.0-1.0 98496-4) IGRE % (test code = 0.2 % 0.0-0.4 IGRE % c ount includes 38782-1) Metamyelocytes, Myelocytes, and Promyelocytes. Neutrophil Abs (test 5.03 K/uL 1.70-7.30 code = 751-8) Lymphocyte Abs (test 2.54 K/uL 1.00-4.80 code = 731-0) Monocyte Abs (test code 0.52 K/uL 0.08-0.70 = 742-7) Eosinophil Abs (test 0.15 K/uL 0.04-0.40 code = 711-2) Basophil Abs (test code 0.04 K/uL 0.00-0.10 = 704-7) IG Abs (test code = 0.02 K/uL 0.00-0.04 86978-0) [facility] 20:35[facility]36 Test Item Value Reference Range Interpretation Comments Neutrophil % (test code 60.6 % 42.0-66.0 = 770-8) Lymphocyte % (test code 30.6 % 24.0-44.0 = 736-9) Monocyte % (test code = 6.3 % 2.0-7.0 5905-5) Eosinophil % (test code 1.8 % 1.0-4.0 = 713-8) Basophil % (test code = 0.5 % 0.0-1.0 05865-3) IGRE % (test code = 0.2 % 0.0-0.4 IGRE % c ount includes 30119-3) Metamyelocytes, Myelocytes, and Promyelocytes. Neutrophil Abs (test 5.03 K/uL 1.70-7.30 code = 751-8) Lymphocyte Abs (test 2.54 K/uL 1.00-4.80 code = 731-0) Monocyte Abs (test code 0.52 K/uL 0.08-0.70 = 742-7) Eosinophil Abs (test 0.15 K/uL 0.04-0.40 code = 711-2) Basophil Abs (test code 0.04 K/uL 0.00-0.10 = 704-7) IG Abs (test code = 0.02 K/uL 0.00-0.04 35814-5) [facility].[id number] 20:35:31 Test Item Value Reference Range Interpretation [...] RDW-SD (test code = 44.6 fL 35.1-46.3 71533-5) RDW-CV (test code = 13.6 % 12.0-15.5 788-0) Platelet count (test 282 K/uL 140-440 code = 777-3) MPV (test code = 9.8 fL 4.0-10.4 04622-6) INRBC (test code = 0.0 % See_Comment The INRBC (instrument 77313-7) NRBC) value ref lects the enumerationof n ucleated red blood cells contained in a 200uL samp leof whole blood analyzed by the instrument. Thi s value maydiffer from the NRBC value reported in a manual differen tial,which is based on a 1 00 cell differential. [ Automated message] The sy stem which generated this result transmitted ref erence range: <=0.0. T he reference range was not used to interpr et this result as normal/abnormal . [facility].[id number] 20:35:31 Test Item Value Reference Range Interpretation [...] RDW-SD (test code = 44.6 fL 35.1-46.3 48968-8) RDW-CV (test code = 13.6 % 12.0-15.5 788-0) Platelet count (test 282 K/uL 140-440 code = 777-3) MPV (test code = 9.8 fL 4.0-10.4 55960-9) INRBC (test code = 0.0 % See_Comment The INRBC (instrument 69584-4) NRBC) value ref lects the enumerationof n ucleated red blood cells contained in a 200uL samp leof whole blood analyzed by the instrument. Thi s value maydiffer from the NRBC value reported in a manual differen tial,which is based on a 1 00 cell differential. [ Automated message] The sy stem which generated this result transmitted ref erence range: <=0.0. T he reference range was not used to interpr et this result as normal/abnormal . [facility] [id number] 16:17:12 Test Item Value Reference Range Interpretation Comments Gross Description (test p6uvhDLjADLszTILBRbw code = 4593522217) XDtymnLhMWZkkXAcU8Lq hqgnQWszHH7oAU0vqVyb fIUdwFAlNY8NCHBxBaOc XHBhcGVydzEyMjQwXHBh cQWnrYA3ATGeHN9lavqt BKnaFKnuQYRhwoR1DEXk dRHbV6EnGVVbAL4zeelo VYI7TZdlaR9tyrFUNyto Pb4wsIKxuNnkJfHeMpHl YXJzZXQwXGZuaWwgQXJp DTw7sJ4ZMzucY17ch6K0 Oif9DMHkAXIaK5EgOP8e MJPfpTBsV80VEnmxCTI5 SVKCPnaiESGsSP1Ro6ce NRHikNIlXPA1FBoiuRMd YIKjKWHlFEd6DZNuPPxc pTGrTO3boGkbLxnqwQuz b2SmbYMhVKxmCTHaEIFt ZMqjIDFgHR5CToFbISJe BLx8FAMhFOx9TEw6OX8G VuSwZFFdRPJ9EbYuFcSh ZJw3XZuvIN4COIPkBBas OTcwNTAgNTUzMjYgXFx0 IDIgXFxmIEFyaWFsIFxc ZnMgMTAgXFxmYiBcXGZs PYkvnrH0VXHzQDorQQGf ZnMyMCBBOlxwYXIgDQpc iItecT1pCAEzR49uh2ZS n8BxIP8IVBe1ndHcujtz pA3yHHVcglGlQCsobCFt E6xtL1SgTEUaIkBrD6Rd Z3buCP8tGEOap6Y9edYd OlxwYXIgDQoyIERpZmYg FPRdmztePYYCPVXuU4Xx cC7rS2aiDPMlVGUurbWG KnXaAI5vOIBqeLLfxGQb bAgzGzlxfDE5VYikQfbt iY6gvROUZEZRSksTZuqp koFdME0GYLMXSzQDQH42 AgK6KaS6KBgzdHguQkcn hiZfiQJpKdIBnZ2wyGhc yOPanHVepG05VEswSCCo t8ToP0Pti3aaySJqSLol ZbcvbMBobtF4TNpUQWCO JNsAJuDhEB3wJYhQWIGU RUdJTnwyfXtcZmxkcnNs pYHoFeUMiA3vpGqlrQTe bEQpsQ2jALq3QRYdLTdy j1ffKDEhYCqsx4VhQCcM PBQOCG0LPC7jhTE3M1iN REVORHwyfXtcZmxkcnNs gHArTyUDnN6tbQjugA9m xUIyA3zlaSDffKJypTgg NuDrNmQtOILsUqg0yMM6 KYVoGDuuj5mmWBFwFLcr t8NlISbXOCYBQB0XJI7o lSA7VZoORZKTYJxlDEF4 WAwaoFQ5f7iomBBhj3z4 FWnfWJC7vIrlgQXexhzh dHJjaFxjZjFcZnMyMCAg sR0cUqBXPCuuGWKcMUyg M0TwCFWqR7OpdSTGnX6u p0cjYXIdUGlDTPRvV3Xz wHKcXAgvJ6HcQOtmECAa pb4txRysAuZguFEfyVBh aIwkMynuzSL0WOhrXuho rO1urJHBNWWVXsnXCzpo xbKrMV2FVJ2ZSrSVZF67 WVVgOlW3T4cLX3HLRHSP YIV8ZTa3fGE4cA67VDBt JHAoiMFlNKckU063UZTj HXCcLrU8ZABkRGxzl0vh UKPlVVysl6QsNZeVADER GM0DMU3otZZ6DGrYN1VA YYw6NVJ7RjdccAKFWKFV JISCDKazcVq4KQn7wHba JzwaybHmbXWzZsDOaU7b gFzukE3fwLEwF4ymDqRh XILcHYHps3ZnD4O6OHRv YPsbd3pqIIBrJEktj7Le XMgCXETRYB9JZD4gmME6 LJrTR1HYL3vQaPtrqLT5 Wy0UcQF7gBspzRh2e0ez jZNcr2e4YQqxBDE8cID8 KXJiYF05WQRiLHlow9km CYInPRghu9LwFDlCXZZM AI4UTH0coDS9QPwSO7XB IUf2Yfk8oD5JY2vktMo0 XVb3aSqhZflkjvFovFRc TmICbZ3dmHlizU2xjFXb E6jpD8MlAVWvMkRcnZKu BG9ZYCTvusJALlAcxoA4 TMKgDsV0ASUlTNK3PWYx OSBjbVxwYXIgDQpccGFy HL2CDR0xKOShKHAzTHSa o8Kdy25npkPrVm2tMDXq QVNbwUBtXQHgBTS2AJP3 XLmpkgFcZPQtARupdj95 AIO2j1atjWEmOXnhRtdk sSApqzJ0FCcTQLDPLUlJ ZjWxGA7eDAjAS4NIKRqH TuiwLXx9KJe3vTK3c1wd vYWzh9s5BLmxRNP7mIrd k2wcvGJsHSweCkbozUSi uyR2RHsDBSTXTVcHOjYg JK7bBUuXV4GUPkU0SiP0 SuB7ORt0mVzsDmadwkDo xAHuRqSYqP5wsBsgpS7y kBUjT3aeM7KqLPFiKiMw KAV1REAkOiCLKA7hKAem zcVIQXOABYuCZ2HaAKKZ PJMZQDIyHxNJWY0bXlE3 GpP0NW90TuoxUiD2JaC4 vTF8JUKIDUGFNLwPT3Oj EQFSOBGLUHOwMF8FHQaT WKMYYEKOS68FNGPQOHWP T1KQV2qNRYVxw5OabUxr dMd2UFPkl68buYdGZMTM VJAZE05DRDKWZRZAL7EN WAQPVYOTGOvHTLUCWn7W ABLGUVAKQM2DZFtPIwEt PXngpGUhTTxeOWG5DOg3 VEf1dNZsf7UgzPQ7MvV3 NjVcfSBQTEFDRUhPTERF Dr2QNNUBLINIZB9AMkOu H4SOXS4PFi5ALWZOULSQ PR2FOOfSXxWyH8LMUB4O Wf4CNZAHUBRNVS8TYuOh MPDYL6FJRfKJA6qrJEYT DNKRFCLdNmYZLE2bGMAL JK0JGCRMWHSKL64CBMMT LXCQZ5NUHI7ZLDZvrKHB HXS9SE6jZFx1ANboXXIo A4HxU0HsrtThjGIkLLGe waPpo6vfKHH9TJGtrFTh bEMyIlJhGwcaBHE5TXJg GQozWB7IECWyZRL6LThq rS39yFYtGP0UFDNkKFvl UZDhVKKhmiE0MIQgrLHc XJF7NM2fcEhumOMupbdb swJ1BE7FrY== Immediate Assessment Adequate (test code = 9837) cellularity, favor malignant Major Classification MALIGNANT A (test code = 9839) Diagnosis (test code = a6uhxKPjNZYasPC7ReUm 34) TPDnw3kug3WbwAGlbYNh FVgqfCKngvRzkt29wXL4 zU79FU3cXABvIfJ5NZNu dtP7Ykq7OJGhFFFttYAb P971d0csv8dwdrRgqRZ1 ULAlPICxB3IsHE7uGWIv oXOxY62hnFMlUMA1TKZe ZQDzmIIkJNEiOUU7VOUg eEKiT0scKCQhCJ4mcmez SYwbUAlkDKShvXR9YRJz zENqI9FyTWNtTWwkGLOe sno2ZgAyRs1qoWJcsMoj COjuR8iltG6sObH8DByo V5swmG6iAQg3UFxhIIVu oTR7huV3ZXSglTRxP0Oz uF4uYGFoRP3vlpv3b7ui HYB9TEbiIRAeGrE2cdZ0 NDBccGFyZFxwbGFpblxm aiByLFNmANZTZxOPtG3a hZRvi7RcFVDjoPjvtFGf m7I1ZBWym7Ssp2BgMBGn z7AdwsXfqlorPeylVTCg ZWVkbGUgYXNwaXJhdGlv bjpccGFyXHRhYlxwYXJc zGu5ThWoZTEODNUGMWCX HhKLCQURJJ6WLhGYOGtO FTNOKlIUSg9VLQdiGRB2 Comment (test code = u2cqjOLwWWNzhXW9UaNm 9835) KGRkr2ewm7HeoORloMVm EEeuoMJdmfXgpp29nUS8 xH63UP6wTFIdUtE6WPGx juU0Rlu5NCNzZXBfoWIy A212g7dee8esbnBfnTL9 wYxbAZEglqwtGlF0YYcx WWMzriikKGy7QPuuPPCj mPV7UJJpeNQtS5ElJLSu PL5dwxl3GGS1DZcsOOGc WcJ5UQScwUBmOACjeWnl FWsfi681YXQ9PcOqJLJm wjMdyLxitM2hJcRxAEZM tiWlaI26hw6knRWazjE6 aXRoIGFuIGFwcHJvcHJp AVHwYLAkgqRtd6leARCz pqVqci1kJHEganQ3nAZz E2ZnnAWtuU1sqyDbsgKa DXTlpOtcwzkhe3glvrK2 tK1ulbApFQrphbZ8wzMx KHNbn5RgpXg6BKCmm3Jp UDQwLiBUaGlzIGlzIHN1 oOKtteCevmYrg1NsdTky LMEsp1ZcPCWsLLgzh7Nh gs3wOZNbwn3= Retained/Biomarker a5thqMMqCDFtzIR6RcIm Testing (test code = DFHde8sun1VqmMBqqUJx 9838) HHzuiBTitfOwlm32uPY1 kY97NB0sCECyIgN6BWHf ykN8Rdt8XIDsBGHrkUEg E259m9sbv0bhpmGbsSD1 vPxaRFArmuadWwM6SSus IMXrivnaEEg2NAobPDAt oYZ1HCMjbKWlQ2JkDSYb BT8psad3QRD6GLvhNWWg NaM0WEQmqRMxMXIsjNvw SYdpy057XNB0NpLiZIZk vpSibJegaO2qTaWtVRRK UjogMTAgUywgMSBJUCwg MiBDQlxwYXJccGFyIEJp r01uklkkweYXXSN0eP1s JdskKVMwmVp5FhNwdTon DoViNG0WJJYDXUzjLBJi d2HiTfN4LKNspCXbCL6B IBRIXWH9REwbsu53BUM7 d4utjFVqHCcjXpcqqUEd nvM9CLuEGQCGNBrRKjWh ZM8jQIfLO1DMISfLGpkq KUD9DXiglJS0u2nfwYZl z7v2FKqwFEA6dA9ir7cl aWVsZHtcKlxmbGRpbnN0 OBfZUYEKJKtCIiRfXC3c LTsBS2ERGjU1MqG9FlF2 MXwxfXtcZmxkcnNsdCBc CeXvxP6dzJbefM8cJzMr MFxwYXIgTURMIERROiBc cHJvdGVjdHtcZmllbGR7 EJhaGqjlaM2jnDCJSDFO NtvLVhgujoGkHY2XLPWN RvUYPV38TxX2KmT8Vwgs fXtcZmxkcnNsdCBcJzFj uX0He1fjVjxvfST4RZpa RfpffN2nkSWXJSQZLcvN XdbfyqCsWS4YYACSAY9U bIR5UqrzlVB9He58ZXQn VMFmtKRsXQvkG278YNLb YWluXGZzMjBccGFyIEZJ M9rrVAV6NLcmtj97RVW4 n7souKTuBTsmWkzxcQHr akW3YEiCXDDCBWcURzNa KW2tAJhNM5MNEUkDEmyx WQJ5CKfbeHA1m9dgaKHs v6d9GNpfAZI2uR9th0ym aWVsZHtcKlxmbGRpbnN0 ARwJSTZMNAwSLlPrIC3p VSrXI8SGPyP6MaX1QkW3 X1xtrLbsCgotnkIjfDBu YlUimG7nuUzfaL1cAnXh MFxwYXJcdiBTTUFSVExJ R8XvZOVEJZQRSSOeBbYC BJ5kEnD4GmG0XT4tDpK1 OmsvrFT7PX9jXDG6MSds HUPsE38JIfDXSYVXF72F LCQTMDOWO5IBKVUYYHzG X1XXUT3QWKQHDRBCLR0M ZTvWYsYELUlUK8IELO7T XFRDOVOHSH7HAyXzAJpL B4YQJ3sDMTRrVXWRBITB ZOXlBpICZL1xXDt6Nj5g P2qqLQTkPcH6VqsyKJ5o WScXhj2GgIuiDAU7UnV5 EzAkeYPlv65eX6WwuZWf jhpgIUQ5NRf2SFRRYUAG XR8ZWQWZR17POLOPZQBS K9JUIHXAVlJQZPFBG80H WUGTOGWJS2JAQ5tBXTAE QiUTHPHGE84JKQCMOQIA F9AETEMNTSUQGrDIXsOK RQ7LMDHFJAGEFP2PXZhG ItGcTTFZK7ABBbOQF4ht BRGOAXXSAOPiRM2EyE== Informational Points s1oerJMcMGUekQJrGpHj (test code = 9836) OXFhQEWmk0swJBKtyCSf ZzEwMzNcZnRuYmpcdWMx WLEpQyZsf4oxk277rPKz j6anNUJsBuH2sRKuIZKb aCNeN341MUPmENlea9ll a6VcTSWcoYTct0O3NGNX TGuvOTADMJn5z8plBuJr BzR0fTWvGIthX2mzaeYr dPLnVTUzPCf2zZ10LQWd iQ0zjLNhTGyxasGqYkW1 QZxaKMWnQpN2TUAqlKZx HFTyT5glYHRqFLipUPZt UBxgwUKxDYA6pWcdj8T7 bGVzaGVldHtcZjBcZnMy OjDDs8HxAVr4dKltJ4Ef BNJmRzI5pUCxLFYkEDdx AYYjYVHgbuW0hW80DJxp abD0wLVbn8Lsa22oi640 nF6hkEPnSEB2QQEbYPBm gCLiCWAgWUN8IIKvdZPh L4rtPYNnSK5uywrnCZle KMskHTUqnRB3YTVykOVd S5OyMVQhUOisZSFtnqx3 VmYiCe8zeNPveOiwQYge r5ehp3lpgGPaGth0BYQk YsJeYyziPGzot4Vaz4jc WMRqcf3nSUI9uLBqtFme f9A3gTHpACJjvHMeyyDh GFVaDuB1MDldEG3hvh14 ZMRlKEO5jn3jmWFhxBxv zfMnnPZjEOfdC4BcNVUy c885GIEtN9XyJWTyt1B1 vuAcNnSiTSVtmCJ0hmT1 UTQcQYm4fXXgdgD5ehUj oZTjE2avdR7jYCXoRZ1t zdzno7mcBTfkTLemABVb bLP1uuC8SFEqlPPsQ4Cz rF8qASTgGBhkQPHcxdf2 FzJtNv0snJUplDnlYZpn YmtwYWdlXHBnbmNvbnRc cGduZGVjXHBsYWluXHBs YWluXGYwXGZzMjRccWxc mXqlnU4yQvBrWwAxJZsi HM3qUYTuD2iyzCYhNZQc ZVOcX2irJoYtqU7yvMan WFrxnvU7PIvkX77gIAZ3 ISJ0rzVbWJDqjnVsIPHe KMLxNU6sgLHmMDHvGLYb JV6oWYI0IWojoYAeLYTr ACWeSDJiv3CiSI5fYTEn fSFoCDG9TATdx4FaS3Sb DTL1EGAybL6lUIXveAKA VCBNRCBBbmRlcnNvbiBQ MKRhz8nfD2iiLU4cJFie Rg0oMUXbmemkRTXrcPMg etOsXZQqQPUfTFFce5Ip HLborfDptg10IVMwKL9c u0KrU5zbzNIyrNd7MJRr QWYlLCHuv1MqHXDasy49 JEJuXzzroIkzQLVgLd6u Vl7iGPEeppJjGUO0HeDC OR7hsjhljTRtyTosja4j XHBsYWluXGYyXGZzMjJc bGFuZzEwMzNcaGljaFxm HcikTqJmSCDiKVjdV9hg ZjJcZnMyMlxwYXJ9 Lab Interpretation (test Abnormal code = 85217-9) [facility] Tsqhvlrlevynvb4737-06-89 16:17:12 Test Item Value Reference Range Interpretation Comments Gross Description (test s4rrdLRoPQXzyXUPRGsz code = 0656648164) HIehjfLgXSEhaKQyM1Ke kiioOZedNG4hFI0vgRrp zVHahCDfNV0UZDOxJuPz XHBhcGVydzEyMjQwXHBh yBRtzAN3PVCzEB0pgytj MVvcEHugYGFqbnV1DUMz qJKuK2PwADPzZH4sydbz HCC2ZOmpyF8pexIHHcie Xy8flNBecMncSuEnHsRx YXJzZXQwXGZuaWwgQXJp AGe3kD3NSvmxH01ul8Y5 Dga5MTDvAVYwA2VyZK7b NXNyuGFvA55BAohqORK1 VZMRXwnjYRBcDV1Pc3oo DJCuvVYrKCI1YDhvoBKm BBSvGMHyIFu0FJAcPGgt bUKeZC9auLibIdtxfYaf d8DtsXSsRJkzHZLvUOPp HItfCNNmOF3CVlGaQFJs QCt9NJArEQo9DSs5UZ6Y VxVyKDSsNQX2WjYcBfZn TZc1APidTL0VYUZzIIjk OTcwNTAgNTUzMjYgXFx0 IDIgXFxmIEFyaWFsIFxc ZnMgMTAgXFxmYiBcXGZs QFnqzqZ2TENgGVfqTUDn ZnMyMCBBOlxwYXIgDQpc gDbgjW2tQMYeW52yr6TO q3FyZQ2FKQw6aqLkuaib hJ2uNIQcjpAyDCvsxWHw X7qsX4ScQADaGsPnI5Iv Z9vtCP2oBWMjr4X6twJj OlxwYXIgDQoyIERpZmYg YXJqczsbMBXVRYAlP6Sx aR9vF8gtWWHsBPEirzBX SmTyXU4sTCEdrMLqvIJk lBbkOtcslCM9BNsuQbqr iZ8xvQDBLAURVglPDxeg eoPoOZ6RBFUUQaJUGO85 WpD0RpS8DPtgmQtaSgme mpRqeWYgNfZBbM3evKjq nEEobRJkqI74SYrlFAEn k2CnR1Ead5kkbHIwUTeg OmoifWWuzyQ8BIwILYLV DCuSLnLlQU9tDSqQEGNE RUdJTnwyfXtcZmxkcnNs nYNsAfKMkQ8voGrceVDi rPVllB5bFNz9SYBrSIde b0bmCDPqHPqnh4ZbZQmI EOPGOU1TCM7hnUQ7I7iD REVORHwyfXtcZmxkcnNs pOVbXuLIoO0mrFszuC0t aQBtX4vvwNEbyLQesVeb AqZmYoCyRMBoLlr3vWE5 VCTzNGzhu1hyESRyOJyc c7MlSBwBIXUPZR6QQC7h nGI8JCiXPJJXRCwiXJS2 JEomuYE3m5cvkVSpo9i0 VPxtOFY9tGkziBVcyorb dHJjaFxjZjFcZnMyMCAg fL6gZxFKLJudOZRdEVrp D0ZwKQLcE4CnwZGUzJ6c h3gsQRTcLRtSPLIsO3Uc oWEnJZvsM9JvIRndAVLk la8tfTjbYbTtyUMleKJm iVttTroqkCA1ZVmcLjhg yC6moSXCBJMJRbgVYgbs asQpJC6RFN0SUnBQVG76 MNRaQmA7H7dMQ7NNLRSW NUG2AWq1wQC7sR43POKp QFMebZUwUOudG527QMGc ZTEnNaH3PCWuDJqgd5ws BROuNZlef0CjQMaVUQEC WO3ZLU9hgGG2DMgHG4DX MKm6QSI3XmghiKNHPIHC MZYWWBzvcNs6YXg8cKxx OpcibeFckQVzRsWRlY0z uMowkK2izQOzW6fqKoVo JCGaELVwe3LqS7V9QXPo NUgqo2veWKLkNVwcs3Hu TVoKIILJJQ4WCQ7oaXS4 AYqJW2SPW4iQpHrrgWJ1 Hl3PdOX0mSfffRn0p5dl oMPrq3r9QZsiMOO9kGN9 YTEaZB69ZJWsTJuws3ke CGNdVYdjn1UkRUfKQTZC ZK6ECF3feZX1UWxJU5ZU WHb6Mjn6lI3TG9bliCd2 FNz7aOfvKpwbtvUesEWs GbTEdS5znOqidI1asYAg T9dtX7MiPRPnOuMrwFAg VP6UVJWsnpHWLsNwemN3 MKKuFyE6VZXkXOZ4QSQs OSBjbVxwYXIgDQpccGFy YQ8WWN0tLXOqJOMeZJXk l1Xud89kydHuIr2jXZZr FHQgeKLaBBSoHSV6STV8 KXolmmCoMLPoIRyltw94 KJB0b4jdkMBrQEsoIkwc aMSjrwA4LTuHUMRSWUcM BlIvIN7cIZrPX9YYHSnM WcgpYBm8VDe6vHJ5h6xw gTWvc4p1QWedTJA1cDjv g5hdvPJfZLttTjaupDZq osZ3SXpKUBOCHWnPTuPv SS7eQDpCZ9WDRtS9WcE1 IrI7CEy7mOotOduryyVr zNFkIwHIbE9wqTquoW6c oNHmU4igF2WcQRKlYwKy FBE7FUNtPaVFZS6fLUby qyXWTJDBVBwOW6RbPWMC CNAOXSPdGhJXSP3cZtR3 ZfT8TT57TcltAyX2ZwZ1 sZR1YPVUBHSXOLkSD4Kb ENKNFIMGMRXoIZ6HOZsA PINKQZFZD44GZVNHLRTO P0IUH6jBLVOqz4DhkXrq xKe0EQRrv42duWxVXGKO DRQZA99KFEJSTXWCJ8PK SKSDYLIEMOiCDUAILj0M BCMNUJFRYD7NYNaYArCm BXackITaLEqdJQS7FAp3 VOf8iRSho3LxlAO8PbN2 NjVcfSBQTEFDRUhPTERF Sz7HPNYEQPNQVU8JVqQm W4JFLO4FWn1CGLYRTQQP XO9GPVlFShHeY8WXWT2P Gk8MSCIFCQKZOA6TIxCd NGKIS0IOSjEPT8ayFYVO OYODSVNwXwMSQR0uUFGA ZV8KGVPTOKCXV60VYFXA BKAVL6IBBO0IDGWniSMY CPG8IP4rRZu5UDkmRPEv T2RrL3XsdrQaxCLzGUPl jfSwf0mlOJP1GXQodWIw iAMrXwMuXwykLQD6XDGg SLuqCY7KOEBsZIJ1JTmy gO34kYDoLE7HDGJiIHtr PJRjRMHgpoT4ZASsrXYo JPA8CG6arRtlvHKimkad cjS9AR0ObW== Immediate Assessment Adequate (test code = 9837) cellularity, favor malignant Major Classification MALIGNANT A (test code = 9839) Diagnosis (test code = p8axeXUiLEBtvUT8EgRn 34) NNMny4iyr1NxnVBycTNk ENddgNFdleKcvd14aKW1 dE05SX9hDQMmGjE8FCUe bmQ6Wza1QYVcBTHtiJKt J757v1yvq0pgsfJphOH3 MXAtPMKtF3KiHM8jJJJp aXToX92yrKJzNVZ6BKXw XVLqdPPvKUKiICB0DGHu uHDnA8siHHDfTM2zydeu PDcxKPcgQVWerRN8ODAn vPKtZ5EsEVHyYXlbYQEh syq7XxWiIa7znDIeeVrm IIomT1ghjE5xIgD9IEpk V7uluO0eINx5AJcnWEXm sAX9tpJ5OBEjkDCxW4Om uK3xEPGmLV7djmk8n1kq GSM7XQohYMSvGdP8hsZ4 NDBccGFyZFxwbGFpblxm faFsTYCqHNIXEiXKkV5p wJNct4OcWUGdsAzluWYu f3T6ZBVxc1Crf5JcLGBz z0ZwigPddlmiUxckYNTf ZWVkbGUgYXNwaXJhdGlv bjpccGFyXHRhYlxwYXJc nPm1EcCxCJJZNJYUVWLO OyGATUQIUM0AZcVGWTiD CYIDXvZERc9AAHfqNCZ4 Comment (test code = w6smdLOuQSXhmJA0YkRa 9835) MMVih3boi6NphPBglZJi OCtiaSScbuKqvb52kRC4 fE30CH2xEBQeJqZ6JJYd mmZ8Ymx1EVBhXKXmkNVr X746z5bib9vwxvYjjCA4 tYjnIFQrcgypZkJ7PAwi XTDpzfukXEg0CPdhBGEv zEY6WQUutLLkZ0FwRRYk NN2rcrq6LRJ1FGieZBAu LzW9IULllYTwGLLypQnp KZrfo476IZY7FyVsWVTm suCydTwfbW2eMzUwQWTQ miWbiU06hi4mtAHpbiR6 aXRoIGFuIGFwcHJvcHJp WYBpYYEwozYhd8rwVFSs gdIrgv4cAAUetzM3bKLt D2JqwZMmdK6mcxMrddZm SXDakJtyxdsry6rzkvX5 nK9mtwTcJTsgenR2qyGa YYVap5XabGh5HHTsp7Rn UDQwLiBUaGlzIGlzIHN1 rIIkgsLeweHcd7SykOxn QNFvk4RuHTGoPCybb9Tb jl2aMDRshu5= Retained/Biomarker f2essRQuRWEdhBF3ZuIp Testing (test code = BLNwu5zbm1JmgYRwmLSc 9838) DXgkiNZsqjAkpf57pZQ4 cH88SN8dKUTtUqC9QDMa edN9Cwd7PHUjPKSwkBBn L144j1pru6ztydJhzJJ2 jGayYHUtwlacRkT3LWcx BNJwlbrmBZu7BFlsQYTa tXA9LEEdkXQiH8VsTEOt TA2mlfn1YKT2HLegYRMk FyO7BEVvrNPmDNZpmSgm WIdgn805ZMT4UfWfNOVc ooCnbLtyxS5gWfSeRAVT UjogMTAgUywgMSBJUCwg MiBDQlxwYXJccGFyIEJp g74vezfjjnSDLBF0hG7n EtyqKIVptMi1FzRkxIjc EsMuKK5YLDJSFDeoZPTk m4BfTtG8XOZfoGMrQZ3Y DGGBDZU9EPgqdv63GDE8 w2nrnAHlUNfsVbsszIQo ygO5NZaAUMEHDTjQKsMw BT1dINzJD8JOTYoJLhgq ERI0RSbroYG9w1ktdUKx u5v1CQsvLZV1cX7us4ii aWVsZHtcKlxmbGRpbnN0 VPcOYPERUYnXEjWkCQ4x TGkUP4LYFgR5MkN4OpC5 MXwxfXtcZmxkcnNsdCBc TbXegE1tfArnxP2oCgGe MFxwYXIgTURMIERROiBc cHJvdGVjdHtcZmllbGR7 VXzoZvyxaG7zbTLVDOLI UnvYMpzbcxQeSV1EOCBH CmXOVL20UdN9VmS1Ubzd fXtcZmxkcnNsdCBcJzFj aB1On0fzJspodBT2DDoc KnfsgK5jiPAEKEWZFkwK YsutcrEyZS5SSSJOEX4T xDV5XgijwYI6Us82UQHo BXXanKZzGNieZ344AKEf YWluXGZzMjBccGFyIEZJ Q3syFRE7MVkqyy75AFC4 z5gstZYeQZauTljssMZh ocW4WXgVYACHGQqPKrOp HT0gNGnTD8COHImHBxnz JQL0XBzroDE6a2ykqEUb v5w0FGzeZWT7nQ4uq4qp aWVsZHtcKlxmbGRpbnN0 PPaRGQESWFqGUfYhHI7q LKoFL2LUChD6XmK3GaM6 V6uirPmxCjzlgeRsbAZo OxYdvJ3wxXdeqA3xXnMd MFxwYXJcdiBTTUFSVExJ M6JmMFSEUVMXALDdOuFJ SK8lJuB1LlA7FT6zZcI5 KevryYN4LU7eHXV2ORfy MQFfJ48VFnSHELKLV58E CAHLQSMDF5TUBUNKWOdI K7XCTT6XDDSZCEZNFZ9M DUtCBzCYGRvUM7FCZW1E EHWCGMHFWB1WUlZjXGyP Z1QZE2iUIULiBLOOXXYL GFPxNuYUVB1qKVx8Pe9v M7yzSPLxExP7SuazZM7e GYbDrj6OmNzfPNQ6MgT7 WrPtpQQxk41rO7OsvBWn blqkJDS2AJe1FWGZQKGA WH8PDSKJD97GBMXLHIHO H1OAFBIBRnPDTHMFX77G NHRZQTKBJ8QBS7kWLNQF DjUXKDRDH37DGAXCICJR F7WFQQJQQUPCXuVSRdBS PH6TIRKKJFIPJB0FRMsK JiIfEEEKK8AWBqAWI9as FOARCAUGTJWnHH7IiU== Informational Points a0xooUHbVRRruPUwAsKn (test code = 9836) IOCwLDXgp0xiXWZhaLTe ZzEwMzNcZnRuYmpcdWMx LVBoShGmm9daf366sSQc e2bkXNTkFqX6dQKuFVDu zIJcW321EQDpAKxjr6os e4ItKFNfmADra5V4BNNM SYhyZKLZCKf0b4lnUrLy DbE6wQLkFWlgJ6wbthEw aXRrOWWxFYw5sI44NKRk oU5tjZLnCSkdecOhPsK5 DNuaPYRtXzD7HHWvpMHh YZPgC2wxAGWpNToaICTy EQwnoMFpFIA7lMwmb3U1 bGVzaGVldHtcZjBcZnMy OuGAe6FtWWy3vSnzO1Ll LSKuQjQ2pGWxPLTlYYdc OQUuVPUuorT7dV15CEfp veA3sSCjj2Gwn91pi187 aP8pyGPeLGK8SSVcYLYz yCArWQJtYPH0SYHinUGy Y8goQIKaUV9aujwnYSfx LKghRDDjcDM7ISXstQCs L3HlAKHwAPasPBNtpja4 YvWvMl6mqIVsdSqaTMlv e3eoc2xigLZnVkx7PYKm KmSmWwvsSIvtm5Ssn5en OGWhbu0sJTU5fWRorMjo d8G3cUMmNBMtvBPytyIm DVNyDkZ6JEwbPD8ltb17 TEAiNWO7nk0yrSNfnXpo zzIxfYKxVUskQ4GjVXFm c209LGEoQ1XlJCEiq3I6 ldNqUeFrGKJxlFV0dbT9 XVCnNTp0cKJfaaA4gxEa cAPwP3mxlO5uWWWlVZ4v nfpfi6cqRSueTEefTBXg pVA3ggE0HGXwjLRqV5Oe hG6wFNYgQHchLNSyqxv5 LxJhJl7cgGDvuVcfLOkq YmtwYWdlXHBnbmNvbnRc cGduZGVjXHBsYWluXHBs YWluXGYwXGZzMjRccWxc jKaneF2vImKqDkErLNve VW0aIAJlA6aghNEzLNRs SGRzQ8snQqWjaC5ggLjf MBqvzcP8BGytS77tYTH5 SPW1voReSFPrnzHxAYFn RCGdLT3lkLBqJJTxDVSs KE2uOIE9SRigeUUsHMFr HMEzHVPbl6SnCN4aRPMx rFVpONU7DHCqn8RmU2Dy NRO5BOVobJ5qUMEajGSE VCBNRCBBbmRlcnNvbiBQ BLSjb2dsQ7ynRB8jLSsa Np7pKETozjgoNFOauSJm jtZqEXVzHTMiAOLas2Dr YUqglnEqnb10TDQeBB5r g3NcH7vbaONswGy4DWBu UKJtQTOur6AnUCPnur24 RSFyMksvdXwsKUQrAz9s Wh8hWOHnrmIaZMU8BuHF JF2zrazxxAXdcFeibe3m XHBsYWluXGYyXGZzMjJc bGFuZzEwMzNcaGljaFxm GdakCzImEDCpZMqxX6bw ZjJcZnMyMlxwYXJ9 Lab Interpretation (test Abnormal code = 47536-2) [place] [id number] 19:42:59 Test Item Value Reference Range Interpretation Comments T4 Free (test code = 3024-7) 1.70 ng/dL 0.93-1.70 [facility] 19:42:59 Test Item Value Reference Range Interpretation Comments T4 Free (test code = 3024-7) 1.70 ng/dL 0.93-1.70 [facility]56 Test Item Value Reference Range Interpretation Comments TSH (test code = 1.54 See_Comment [Automated message] The 82733-5) system which ge nerated this result transmit bertha reference range : 0.27 - 4.20 mcunit/mL. The reference range was not used to interpr et this result as mattie l/abnormal. [facility] 19:42:56 Test Item Value Reference Range Interpretation Comments TSH (test code = 1.54 See_Comment [Automated message] The 31034-1) system which ge nerated this result transmit bertha reference range : 0.27 - 4.20 mcunit/mL. The reference range was not used to interpr et this result as mattie l/abnormal. [facility] ([facility]-2[facility] PCR- Asymptomatic [id number] 22:58:00 Test Item Value Reference Range Interpretation Comments COVID19 (SARS Not Detected Not Detected CoV-2) Result (test code = ____[place] a 30578-1) qualitative reverse-transcr iptase polymerase luis n reaction [...] patients provid ed by the manufacture r ([employer]) c an be reviewed at:https://www. fda.go v/media/394824/ downlo ad. A fact shee t for Health Care pro viders is provided by the case briefer ([employer]) and can be reviewed at: https://www.fda .gov/m edia/102595/josee nload Results must be interpreted wit hin [...] were verified by the Microbiology Laboratory at [facility], CLIA Accreditation # : [id number] and CAP Accreditation # : [id number]. 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 fda.go v/media/065342/ downlo ad. A fact shee t for Health Care pro viders is provided by the case briefer ([employer]) and can be reviewed at: https://www.fda .gov/m edia/601364/josee nload Results must be interpreted wit hin [...] were verified by the Microbiology Laboratory at [facility], CLIA Accreditation # : [id number] and CAP Accreditation # : [id number]. COVID19 SARS MOBILE EQUIPMENT MECH[employer]IC Swab Source (test code = 49530) COVID19 SARS Pre-Out of OR Indication (test Procedure code = 33127) [facility]
--- NOTE | 2022-05-16 10:06 | RAD REPORT ---
EXAM DESCRIPTION: RAD - Chest Single View - 05/16/2022 10:00 am CLINICAL HISTORY: COUGH COMPARISON: Chest Pa And Lat (2 Views) dated 05/05/2022; Chest Single View dated 05/03/2022; Chest S nellie View dated 12/10/2021; Chest Pa And Lat (2 Views) dated 12/20/2020 FINDINGS: Lines: None. Lungs: Mild scattered airspace opacities similar to 05/05/2022. Nodular opacity in the right mid lung is unchanged. Pleural: No significant pleural effusions or pneumothorax. Cardiac: The heart size is within normal limits. Mediastinum: Within normal limits. Bones: No acute fractures. Other: None IMPRESSION: Similar aeration of the lungs with scattered ill-defined airspace opacities that may rep resent sequela of recent pneumonia.
[2022-05-16 10:14] LABS: Absolute Lymphocytes (CBC) 0.8 K/uL (0.7-4.9); Hematocrit 37.8 % (36.0-45.0); MCV 86.2 fL (80-100); MPV 7.8 fL (7.6-11.3); RBC Red Blood Cell Count 4.38 M/uL (3.86-4.86)
[2022-05-16 10:17] LABS: Protime INR 1.44
--- NOTE | 2022-05-16 10:19 | RAD REPORT ---
EXAM DESCRIPTION: CT - Head Brain Wo Cont - 05/16/2022 10:13 am CLINICAL HISTORY: WEAK COMPARISON: Ct Stroke Brain Wo Cont dated 05/03/2022; Head Brain Wo Cont dated 05/21/2018; Soft Tissu e Neck W/Contr dated 05/16/2022; Chest Abdomen Pelvis W Cont dated 05/16/2022 TECHNIQUE: All CT scans are performed using dose optimization technique as appropriate and may inclu de automated exposure control or mA/KV adjustment according to patient size. FINDINGS: No intracranial hemorrhage, hydrocephalus or extra-axial fluid collection.No areas of brai n edema or evidence of midline shift. Mild chronic small vessel ischemic changes. Mucosal thickening in the right maxillary sinus. The calvarium is intact. IMPRESSION: No acute intracranial abnormality.
--- NOTE | 2022-05-16 10:22 | RAD REPORT ---
EXAM DESCRIPTION: CT - Soft Tissue Neck W/Contr CLINICAL HISTORY: Neck mass, nonpulsatile COMPARISON: No comparisons TECHNIQUE All CT scans are performed using dose optimization technique as appropriate and may includ e automated exposure control or mA/KV adjustment according to patient size. FINDINGS: Thrombosed right internal jugular vein. This may be acute or subacute as the vein is diste nded. Large right supraclavicular mass measuring 5.7 x 3.8 cm. The right internal jugular vein is exp anded. The parotid and submandibular glands are intact. No left cervical chain lymphadenopathy is maribel ntified. The left IJ is patent. Multilevel degenerative changes are present in the spine. IMPRESSION: Large right supraclavicular mass presumably representing metastatic disease with thrombo sed right internal jugular vein probably due to mass effect. The right IJ thrombosis is likely either acute or subacute. No fracture or malalignment is identified.
[2022-05-16] MEDS ORDERED: FOLIC ACID 5 MG/ML VIAL ONE (10:29)
[2022-05-16] MEDS ORDERED: NA CHLORIDE 0.9% 1,000 ML ONE (10:29)
[2022-05-16 10:31] LABS: SARS-CoV-2 Antigen Rapid Res Negative (Negative)
[2022-05-16 10:35] LABS: Albumin 2.6 g/dL (3.4-5.0); Bilirubin Direct 0.4 mg/dL (0-0.2); Bilirubin Total 1.3 mg/dL (0.2-1.0); Protein, Total 7.9 g/dL (6.4-8.2)
[2022-05-16 10:37] LABS: Magnesium 1.9 mg/dL (1.8-2.4); Potassium 3.4 mmol/L (3.5-5.1)
[2022-05-16 10:38] LABS: Troponin High Sensitivity 513.9 pg/mL (<58.9)
--- NOTE | 2022-05-16 10:47 | RAD REPORT ---
EXAM DESCRIPTION: CTChest Abdomen Pelvis W Cont - 05/16/2022 10:13 am CLINICAL HISTORY: Polytrauma, blunt COMPARISON: No comparisons TECHNIQUE: CT of the chest, abdomen, and pelvis was performed with IV contrast. All CT scans are performed using dose optimization technique as appropriate and may include automated exposure control or mA/KV adjustment according to patient size. FINDINGS: Thorax: Chest Wall: Right supraclavicular lymph node mass with occlusion of the right internal jugular vein. The right subclavian vein may also be occluded. Lungs: Multiple pulmonary nodules bilaterally, the largest is present in the left lower lobe measurin g 4 cm by 2.2 cm with small focus of cavitation. Pleura: No effusions or pneumothorax. Sylvia/Mediastinum: Hilar adenopathy. This is most notable on the left side. Aorta/Pulmonary Arteries: Possible thrombus in a right upper lobe pulmonary artery. A pulmonary arter y branch to the lingula is occluded by mass. Heart: Normal size. Coronary artery calcifications. Small pericardial effusion. Abdomen/Pelvis: Liver: Hepatic steatosis. Biliary: Small hypoattenuating nodule along the gallbladder measuring 9 millimeters is nonspecific. Stomach: No significant focal abnormality. Duodenum: No significant focal abnormality. Pancreas: No significant abnormality. Spleen: No significant abnormality. Adrenal: No suspicious lesions. Kidney/ureter: No hydronephrosis. Combination of benign and indeterminate bilateral renal lesions. Retroperitoneum: No retroperitoneal adenopathy. Vascular: No aneurysm. Bowel: No significant focal abnormality. Peritoneum: No ascites or free air. Ventral hernia repair. Bladder: Grossly unremarkable. Reproductive: No adnexal masses. Bones: Osseous metastatic disease including a lytic lesion in the right inferior pubic ramus measurin g 2.9 cm. Metastatic lesion in T5. Bilateral iliac bone lesions. Other: n/a IMPRESSION: 1. Metastatic disease probably from a lung primary. Multiple pulmonary nodules with a mo re dominant left lower lobe lesion that may be the primary. Osseous metastatic disease including spin al and pelvic lesions. The right supraclavicular mass would be the safest/easiest site for biopsy con firmation. 2. Large right supraclavicular mass and either acute or subacute right IJ thrombosis. The right subcl avtar vein may also be occluded. Possible right upper lobe pulmonary embolus. The left hilar lymphade nopathy/mass does occlude the pulmonary artery to the lingula.
[2022-05-16] MEDS ORDERED: PIPERACIL/TAZO 3.375 GM VIAL IV ONE ×2 (12:22→17:27)
[2022-05-16] MEDS ORDERED: NA CHLORIDE 0.9% 100 ML IV ONE (12:22)
--- NOTE | 2022-05-16 13:12 | ER ---
Nurse's Notes [facility] Name: Connie Buckley Age: 81 yrs Sex: Female : 1940 Arrival Date: 05/16/2022 Time: 09:04 Bed 8 Private MD: Diagnosis: Fall on same level, unspecified;Hypokalemia;Elevated white blood cell count;Weakness;Abnormal findings on diagnostic imaging of other specified body structures-RIGHT SUPRACLAVICULAR DALTON Presentation: 05/16 09:05 Chief complaint: EMS states: FALL AT HOME, NO LOC. Coronavirus screen: At this time, bp the client does not indicate any symptoms associated with coronavirus-19. Ebola Screen: No symptoms or risks identified at this time. Initial Sepsis Screen: Does the patient meet any 2 criteria? No. Patient's initial sepsis screen is negative. Does the patient have a suspected source of infection? No. Patient's initial sepsis screen is negative. Risk Assessment: Do you want to hurt yourself or someone else? Patient reports no desire to harm self or others. Onset of symptoms was May 16, 2022 at 08:15. Care prior to arrival: IV initiated. 20 GA, in the left forearm, Glucose check: 136. 09:05 Method Of Arrival: EMS: [facility] bp 09:05 Acuity: MARC 3 bp Triage Assessment: 09:06 General: Appears distressed, Behavior is cooperative, appropriate for age, anxious. bp Pain: Denies pain. EENT: No deficits noted. Neuro: Level of Consciousness is awake, alert, obeys commands, Oriented to Appropriate for age. Cardiovascular: Rhythm is sinus arrythmia. Respiratory: No deficits noted. GI: No signs and/or symptoms were reported involving the gastrointestinal system. : No signs and/or symptoms were reported regarding the genitourinary system. Derm: No deficits noted. Musculoskeletal: No deficits noted. Historical: - Allergies: 09:06 amlodipine besylate; bp 09:06 Clonidine; bp 09:06 Codeine; bp 09:06 doxazosin; bp 09:06 ezetimibe; bp 09:06 Indomethacin; bp - PMHx: 09:06 TIA; Mouth Cancer; Hypothyroidism; Hypertension; Angina; Hyperlipidemia; Diabetes - bp NIDDM; - PSHx: 09:06 Partial tongue removal; hysterectomy; bp - Immunization history:: Adult Immunizations up to date. - Social history:: Smoking status: Patient denies any tobacco usage or history of. Screenin:08 Abuse screen: Denies threats or abuse. Denies injuries from another. Nutritional bp screening: No deficits noted. Tuberculosis screening: No symptoms or risk factors identified. Fall Risk None identified. Assessment: 09:08 General: SEE TRIAGE NOTE. bp 11:00 Reassessment: No changes from previously documented assessment. Patient and/or family bp updated on plan of care and expected duration. Pain level reassessed. 12:55 Reassessment: No changes from previously documented assessment. Patient and/or family bp updated on plan of care and expected duration. Pain level reassessed. 14:52 Reassessment: ADMIT IN PROCESS. bp Vital Signs: 09:05 BP 131 / 79; Pulse 87; Resp 16; Temp 97.5; Pulse Ox 94% ; Weight 62 kg; Height 5 ft. 4 bp in. (162.56 cm); 10:00 BP 145 / 76; Pulse 74; Resp 24; Pulse Ox 94% ; bp 11:00 BP 143 / 68; Pulse 66; Resp 22; Pulse Ox 93% ; bp 12:00 BP 149 / 82; Pulse 78; Resp 24; Pulse Ox 94% ; bp 12:55 BP 156 / 74; Pulse 71; Resp 24; Pulse Ox 93% ; bp 14:52 BP 135 / 76; Pulse 76; Resp 21; Pulse Ox 93% ; bp 19:35 BP 151 / 70; Pulse 71; Resp 18 S; Pulse Ox 95% on R/A; as6 09:05 Body Mass Index 23.46 (62.00 kg, 162.56 cm) bp ED Course: 09:04 Patient arrived in ED. bp 09:06 Triage completed. bp 09:06 Arm band placed on. bp 09:08 Patient has correct armband on for positive identification. Bed in low position. Call bp light in reach. Side rails up X2. 09:08 Maintain EMS IV. Dressing intact. Good blood return noted. Site clean \T\ dry. Gauge \T\ bp site: 20 LEFT FA. 09:10 Arben Shelton RN is Primary Nurse. bp 09:13 Fer Crowell MD is Attending Physician. sharri 10:02 XRAY Chest (1 view) In Process Unspecified. EDMS 10:15 CT Soft Tissue Neck W/contr In Process Unspecified. EDMS 10:15 CT Head Brain wo Cont In Process Unspecified. EDMS 10:15 CT Chest, Abdomen, Pelvis - W/Contrast In Process Unspecified. EDMS 13:11 Black Castellanos MD is Hospitalizing Provider. sharri 19:36 No provider procedures requiring assistance completed. Patient admitted, IV remains in as6 place. Administered Medications: 10:10 Drug: NS 0.9% 1000 ml Route: IV; Rate: 125 ml/hr; Site: right antecubital; bp 19:47 Follow up: Response: No adverse reaction; IV Status: Order to discontinue infusion; IV as6 Intake: 600ml 10:10 Drug: NS 0.9% 500 ml Route: IV; Rate: bolus; Site: right antecubital; bp 10:10 Drug: foLIC Acid 1 mg Route: IVPB; Site: right antecubital; bp 19:47 Follow up: Response: No adverse reaction; IV Status: Completed infusion; IV Intake: 73ctaf4 12:00 Drug: Zosyn (piperacillin-tazobactam) 3.375 grams Route: IVPB; Infused Over: 60 mins; bp Site: right antecubital; 19:46 Follow up: Response: No adverse reaction; IV Status: Completed infusion; IV Intake: as6 100ml 14:00 Drug: Potassium Effervescent Tablet 25 mEq Route: PO; bp 19:46 Follow up: Response: No adverse reaction as6 Medication: 09:08 VIS not applicable for this client. bp Intake: 19:46 IV: 100ml; Total: 100ml. as6 19:47 IV: 50ml; Total: 150ml. as6 19:47 IV: 600ml; Total: 750ml. as6 Outcome: 13:12 Decision to Hospitalize by Provider. sharri 19:47 Admitted to Med/surg accompanied by tech, family with patient, via stretcher, room 206, as6 with chart. 19:47 Condition: stable 19:47 Instructed on the need for admit. 19:48 Patient left the ED. as6 Signatures: Dispatcher [employer] Fer Cary MD MD cha Peltier, Brian, RN RN Oli Groves RN RN as6 Corrections: (The following items were deleted from the chart) 18:11 09:05 BP 131 / 79; Pulse 87bpm; Resp 16bpm; Pulse Ox 94%; Temp 97.5F; bp bp
--- NOTE | 2022-05-16 13:13 | EDPHYS ---
Physician Documentation [facility] Name: Connie Buckley Age: 81 yrs Sex: Female : 1940 Arrival Date: 05/16/2022 Time: 09:04 Bed 8 Private MD: ED Physician Fer Crowell HPI: 05/16 09:40 This 81 yrs old Female presents to ER via EMS with complaints of Fall Injury. sharri 09:40 Details of fall: The patient fell from an upright position, while walking. sharri Historical: - Allergies: 09:06 amlodipine besylate; bp 09:06 Clonidine; bp 09:06 Codeine; bp 09:06 doxazosin; bp 09:06 ezetimibe; bp 09:06 Indomethacin; bp - PMHx: 09:06 TIA; Mouth Cancer; Hypothyroidism; Hypertension; Angina; Hyperlipidemia; Diabetes - bp NIDDM; - PSHx: 09:06 Partial tongue removal; hysterectomy; bp - Immunization history:: Adult Immunizations up to date. - Social history:: Smoking status: Patient denies any tobacco usage or history of. ROS: 09:43 Constitutional: Negative for fever, chills, and weight loss, Eyes: Negative for injury, sharri pain, redness, and discharge, ENT: Negative for injury, pain, and discharge, Neck: Negative for injury, pain, and swelling, Cardiovascular: Negative for chest pain, palpitations, and edema, Respiratory: Negative for shortness of breath, cough, wheezing, and pleuritic chest pain, Abdomen/GI: Negative for abdominal pain, nausea, vomiting, diarrhea, and constipation, Back: Negative for injury and pain, : Negative for injury, bleeding, discharge, and swelling, MS/Extremity: Negative for injury and deformity, Skin: Negative for injury, rash, and discoloration, Psych: Negative for depression, anxiety, suicide ideation, homicidal ideation, and hallucinations, Allergy/Immunology: Negative for hives, rash, and allergies, Endocrine: Negative for neck swelling, polydipsia, polyuria, polyphagia, and marked weight changes, Hematologic/Lymphatic: Negative for swollen nodes, abnormal bleeding, and unusual bruising. 09:43 Neuro: Positive for altered mental status, weakness. Exam: 09:43 Constitutional: This is a well developed, well nourished patient who is awake, alert, sharri and in no acute distress. Head/Face: Normocephalic, atraumatic. Eyes: Pupils equal round and reactive to light, extra-ocular motions intact. Lids and lashes normal. Conjunctiva and sclera are non-icteric and not injected. Cornea within normal limits. Periorbital areas with no swelling, redness, or edema. Chest/axilla: Normal chest wall appearance and motion. Nontender with no deformity. No lesions are appreciated. Cardiovascular: Regular rate and rhythm with a normal S1 and S2. No gallops, murmurs, or rubs. Normal PMI, no JVD. No pulse deficits. Respiratory: Lungs have equal breath sounds bilaterally, clear to auscultation and percussion. No rales, rhonchi or wheezes noted. No increased work of breathing, no retractions or nasal flaring. Abdomen/GI: Soft, non-tender, with normal bowel sounds. No distension or tympany. No guarding or rebound. No evidence of tenderness throughout. Back: No spinal tenderness. No costovertebral tenderness. Full range of motion. Female : Normal external genitalia. Skin: Warm, dry with normal turgor. Normal color with no rashes, no lesions, and no evidence of cellulitis. MS/ Extremity: Pulses equal, no cyanosis. Neurovascular intact. Full, normal range of motion. Psych: Awake, alert, with orientation to person, place and time. Behavior, mood, and affect are within normal limits. 09:43 ENT: RIGHT NECK MASS. 10:02 ECG was reviewed by the Attending Physician. [facility] Vital Signs: 09:05 BP 131 / 79; Pulse 87; Resp 16; Temp 97.5; Pulse Ox 94% ; Weight 62 kg; Height 5 ft. 4 bp in. (162.56 cm); 10:00 BP 145 / 76; Pulse 74; Resp 24; Pulse Ox 94% ; bp 11:00 BP 143 / 68; Pulse 66; Resp 22; Pulse Ox 93% ; bp 12:00 BP 149 / 82; Pulse 78; Resp 24; Pulse Ox 94% ; bp 12:55 BP 156 / 74; Pulse 71; Resp 24; Pulse Ox 93% ; bp 14:52 BP 135 / 76; Pulse 76; Resp 21; Pulse Ox 93% ; bp 19:35 BP 151 / 70; Pulse 71; Resp 18 S; Pulse Ox 95% on R/A; as6 09:05 Body Mass Index 23.46 (62.00 kg, 162.56 cm) bp MDM: 09:13 Patient medically screened. sharri 09:45 Differential diagnosis: closed head injury, contusion, multiple trauma, sprain, strain. sharri Data reviewed: vital signs, nurses notes, lab test result(s), EKG, radiologic studies, CT scan, plain films. Data interpreted: engine monitor: rate is 87 beats/min, rhythm is regular, Pulse oximetry: on room air is 94 %. Test interpretation: by ED physician or midlevel provider: ECG, plain radiologic studies. Counseling: I had a detailed discussion with the patient and/or guardian regarding: the historical points, exam findings, and any diagnostic results supporting the discharge/admit diagnosis, lab results, radiology results. 05/16 09:39 Order name: Basic Metabolic Panel; Complete Time: 10:56 [facility] 05/16 09:39 Order name: CBC with Diff; Complete Time: 10:56 [facility] 05/16 09:39 Order name: LFT's; Complete Time: 10:56 [facility] 05/16 09:39 Order name: Magnesium; Complete Time: 10:56 [facility] 05/16 09:39 Order name: NT PRO-BNP; Complete Time: 10:56 [facility] 05/16 09:39 Order name: PT-INR; Complete Time: 10:56 [facility] 05/16 09:39 Order name: Troponin HS; Complete Time: 10:56 [facility] 05/16 09:40 Order name: Type And Screen; Complete Time: 10:56 [facility] 05/16 09:40 Order name: Urine Culture; Complete Time: 10:56 [facility] 05/16 09:42 Order name: Urine Culture EDND 05/16 11:16 Order name: Blood Culture Adult (2) [facility] 05/16 15:22 Order name: Troponin High Sensitivity EDND 05/16 15:22 Order name: Troponin High Sensitivity EDND 05/16 15:22 Order name: Troponin High Sensitivity EDND 05/16 15:25 Order name: Urinalysis EDND 05/16 15:25 Order name: CBC with Automated Diff EDND 05/16 15:25 Order name: CBC with Automated Diff EDND 05/16 15:25 Order name: CBC with Automated Diff EDND 05/16 15:25 Order name: CBC with Automated Diff EDMS 05/16 15:25 Order name: Comprehensive Metabolic Panel [facility] 05/16 15:25 Order name: Comprehensive Metabolic Panel [facility] 05/16 15:25 Order name: Comprehensive Metabolic Panel [facility] 05/16 15:25 Order name: Comprehensive Metabolic Panel [facility] 05/16 15:25 Order name: Magnesium [facility] 05/16 15:25 Order name: Magnesium [facility] 05/16 15:25 Order name: Phosphorus [facility] 05/16 15:25 Order name: Phosphorus [facility] 05/16 18:32 Order name: Lactate [facility] 05/16 19:07 Order name: Creatine Phosphokinase [facility] 05/16 09:39 Order name: XRAY Chest (1 view); Complete Time: 10:56 [facility] 05/16 09:40 Order name: EKG; Complete Time: 09:41 [facility] 05/16 09:40 Order name: Cardiac monitoring; Complete Time: 10:00 [facility] 05/16 09:40 Order name: EKG - Nurse/Tech; Complete Time: 10:00 [facility] 05/16 09:40 Order name: IV Saline Lock; Complete Time: 09:40 [facility] 05/16 09:40 Order name: Labs collected and sent; Complete Time: 10:26 [facility] 05/16 09:40 Order name: O2 Per Protocol; Complete Time: 09:40 [facility] 05/16 09:40 Order name: O2 Sat Monitoring; Complete Time: 09:40 [facility] 05/16 09:40 Order name: CT Soft Tissue Neck W/contr; Complete Time: 10:56 [facility] 05/16 09:40 Order name: CT Head Brain wo Cont; Complete Time: 10:56 [facility] 05/16 09:42 Order name: CT Chest, Abdomen, Pelvis - W/Contrast; Complete Time: 10:56 [facility] 05/16 15:25 Order name: CONS Physician Consult [facility] 05/16 15:25 Order name: NPO [facility] 05/16 18:13 Order name: US EDND EC:02 Rate is 90 beats/min. Rhythm is regular. QRS [place] is Normal. [place] interval is normal. QRS sharri interval is normal. QT interval is normal. No Q waves. No ST changes noted. Clinical impression: NSR w/ Non-specific ST/T Changes and No evidence of ischemia. Interpreted by me. Reviewed by me. Administered Medications: 10:10 Drug: NS 0.9% 1000 ml Route: IV; Rate: 125 ml/hr; Site: right antecubital; bp 19:47 Follow up: Response: No adverse reaction; IV Status: Order to discontinue infusion; IV as6 Intake: 600ml 10:10 Drug: NS 0.9% 500 ml Route: IV; Rate: bolus; Site: right antecubital; bp 10:10 Drug: foLIC Acid 1 mg Route: IVPB; Site: right antecubital; bp 19:47 Follow up: Response: No adverse reaction; IV Status: Completed infusion; IV Intake: 05lmph2 12:00 Drug: Zosyn (piperacillin-tazobactam) 3.375 grams Route: IVPB; Infused Over: 60 mins; bp Site: right antecubital; 19:46 Follow up: Response: No adverse reaction; IV Status: Completed infusion; IV Intake: as6 100ml 14:00 Drug: Potassium Effervescent Tablet 25 mEq Route: PO; bp 19:46 Follow up: Response: No adverse reaction as6 Disposition Summary: 05/16/22 13:12 Hospitalization Ordered Hospitalization Status: Inpatient Admission sharri Provider: Black Castellanos cha Location: Telemetry/MedSurg (Inpatient) sharri Condition: Fair sharri Problem: new sharri Symptoms: have improved sharri Bed/Room Type: Standard [facility] Room Assignment: 206(05/16/22 17:07) em1 Diagnosis - Fall on same level, unspecified sharri - Hypokalemia sharri - Elevated white blood cell count sharri - Weakness sharri - Abnormal findings on diagnostic imaging of other specified body structures - RIGHT sharri SUPRACLAVICULAR DALTON Forms: - Medication Reconciliation Form sharri - SBAR form sharri Signatures: Dispatcher [employer] EDFer Dao MD MD cha Martinez, Eric em1 Arben Shelton RN RN Oli Groves RN as6 Corrections: (The following items were deleted from the chart) 17:07 13:12 sharri em1
[2022-05-16] MEDS ORDERED: POTASSIUM 25 MEQ EFFERV TAB ONE (13:58)
--- NOTE | 2022-05-16 15:14 | P.HP ---
Certification for Inpatient Patient admitted to: Inpatient With expected LOS: >2 Midnights Patient will require the following post-hospital care: None Practitioner: I am a practitioner with admitting privileges, knowledge of patient current condition, hospital course, and medical plan of care. Services: Services provided to patient in accordance with Admission requirements found in Title 42 Section 412.3 of the Code of Federal Regulations Patient History Date of Service: 05/16/22 History of Present Illness: Ms. 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 She reports that, earlier today, she was trying to ambulate in her bedroom and suffered a ground-level fall. She states that she fell between her bed and chest in her room and one of her family members helped her up. She denies any head trauma or loss of consciousness. She reports that she has had generalized weakness for some time, and she feels that this is gradually worsening. She denies any obvious inciting or alleviating factors. She has not tried taking any medications for her symptoms. On review of systems, she denies any fevers, chills, headaches, syncope, chest pain, palpitations, shortness of breath, wheezing, cough, abdominal pain, nausea/vomiting, diarrhea, constipation, hematochezia, melena, dysuria, hematuria, myalgia, or any other symptoms. She presented to the Emergency Department for further evaluation. Upon presentation, her vital signs were notable for a respiratory rate of 24 breaths/min. Her laboratory studies were notable for a WBC count of 19,100, a creatinine of 1.65 (baseline ~0.7), a calcium of 13.7, and a troponin of 513.9. Blood cultures x 2 were obtained. EKG revealed normal sinus rhythm without STEMI criteria. Chest x-ray revealed, "similar aeration of the lungs with scattered ill-defined airspace opacities that may represent sequela of recent pneumonia." CT head revealed, "no acute intracranial abnormality." CT neck revealed, "large right supraclavicular mass presumably representing metastatic disease with thrombosed right internal jugular vein probably due to mass effect. The right IJ thrombosis is likely either acute or subacute. No fracture or malalignment is identified." CT chest/abdomen/pelvis revealed, "1. Metastatic disease probably from a lung primary. Multiple pulmonary nodules with a more dominant left lower lobe lesion that may be the primary. Osseous metastatic disease including spinal and pelvic lesions. The right supraclavicular mass would be the safest/easiest site for biopsy confirmation. 2. Large right supraclavicular mass and either acute or subacute right IJ thrombosis. The right subclavian vein may also be occluded. Possible right upper lobe pulmonary embolus. The left hilar lymphadenopathy/mass does occlude the pulmonary artery to the lingula." In the Emergency Department, she was given 1.5 L IV fluids and piperacillin-tazobactam. She was admitted to the General Internal Medicine service for further evaluation. Allergies clonidine Allergy (Verified 05/03/22 16:16) Unknown doxazosin Allergy (Verified 05/03/22 16:16) Unknown ezetimibe Allergy (Verified 05/03/22 16:16) Unknown amlodipine besylate [From Norvasc] Adverse Reaction (Severe, Verified 05/03/22 16:16) swelling codeine [Codeine] Adverse Reaction (Verified 05/03/22 16:16) Itching indomethacin Allergy (Mild, Uncoded 05/03/22 16:16) Unknown Home medications list reviewed: Yes Home Medications: Metoprolol Tartrate [Lopressor*] 25 mg PO BID 05/18/13 Aspirin [Ecotrin 81 MG] 81 mg PO DAILY 05/22/18 Isosorbide Mononitrate [Isosorbide Mononitrate ER] 30 mg PO DAILY 05/22/18 Magnesium Oxide [Mag-Oxide] 400 mg PO DAILY 05/22/18 Acetaminophen [Tylenol Extra Strength] 1 tab PO BIDP PRN 12/08/20 Famotidine 1 tab PO BEDTIME 12/08/20 Nitroglycerin 1 tab SL SEECOM PRN 12/08/20 Levothyroxine Sodium [Levothyroxine] 1 tab PO [id number] 12/10/21 - Past Medical/Surgical History Diabetic: No -: HTN -: GERD -: CAD -: hypothyroidism -: HLD -: TIA -: Mouth Cancer -: DM-NIDDM -: back X3 -: hysterectomy -: melanoma removal to back -: surgical removal of cancer on rt side of tongue X3 -: Biopsy X3 R breast - Family History Father -: Heart disease, Hypertension Sister -: Heart disease, Hypertension, Diabetes Mother -: Heart disease, Diabetes - Social History Alcohol use: No CD- Drugs: No Caffeine use: Yes Review of Systems 10-point ROS is otherwise unremarkable General: Weakness Eyes: Unremarkable ENT: Throat Swelling (from tumor) Respiratory: Unremarkable Cardiovascular: Unremarkable Gastrointestinal: Unremarkable Genitourinary: Unremarkable Musculoskeletal: Neck Pain Integumentary: Unremarkable Neurological: Weakness Physical Examination - Vital Signs Temperature: 97.5 F Blood Pressure: 156/74 Pulse: 71 Respirations: 24 Pulse Ox (%): 93 (room air) - Physical Exam General: Alert, In no apparent distress, Oriented x3, Other (voice is muffled - reported baseline due to cancer) HEENT: Atraumatic, Mucous membr. moist/pink, EOMI, Sclerae nonicteric Neck: Other (swelling of right base of neck noted) Respiratory: Diminished Cardiovascular: No edema, Regular rate/rhythm, Normal S1 S2, No gallops, No rubs, No murmurs Gastrointestinal: Normal bowel sounds, Soft and benign, Non-distended, No tenderness, No rebound, No guarding Musculoskeletal: No clubbing Integumentary: No rashes Neurological: Cranial nerves 3-12 intact, Normal affect - Studies Laboratory Data (last 24 hrs) 05/16/22 10:05: PT 15.8 H, INR 1.44 05/16/22 10:05: WBC 19.10 H, Hgb 12.4, Hct 37.8, Plt Count 317 05/16/22 10:05: Sodium 138, Potassium 3.4 L, BUN 27 H, Creatinine 1.65 H, Glucose 139 H, Magnesium 1.9, Total Bilirubin 1.3 H, AST 25, ALT 28, Alkaline Phosphatase 104 Assessment and Plan - Plan # Sepsis likely secondary to Pneumonia She meets sepsis criteria based on RR > 20 breaths/min and WBC > 12,000 and the suspected source is pneumonia. Plan: - Sepsis order set was initiated - Chest x-ray = "similar aeration of the lungs with scattered ill-defined airspace opacities that may represent sequela of recent pneumonia." - Initial Lactate was requested - Blood cultures drawn before antibiotics were given - Broad spectrum antibiotics started: Vancomycin + Piperacillin-Tazobactam (to cover HCAP given recent admission) - In regards to fluids: - 30 mL/kg of IV fluids was not administered given SBP > 90, MAP > 65, lactic acid < 4 # KDIGO Stage II Acute Kidney Injury # Hypercalcemia - Consulted Nephrology and spoke with Dr. Pathak - recommendations appreciated - Creatinine = 1.65 (baseline creatinine ~0.7) - Calcium = 13.7 - Urinalysis = pending - Monitor creatinine and urine output - If worsening, obtain renal ultrasound - Renally dose medications # Concern for Non-ST Segment Elevation Myocardial Infarction # Coronary Artery Disease # History of Recent Cerebrovascular Accident # Hypertension # Hyperlipidemia - Evaluation thus far: - EKG: without STEMI criteria, trend - Serial troponin: first was 513.9 - Transthoracic echocardiogram 05/06/2022 = "NORMAL LEFT VENTRICULAR EJECTION FRACTION 60-65%. NORMAL WALL MOTION. MILD TRICUSPID REGURGITATION. MILD MITRAL REGURGITATION. SMALL PERICARDIAL EFFUSION." - Management plan: - Consult Cardiology - recommendations appreciated - S/P aspirin 324 mg PO x 1 in ED - Continue home aspirin, rosuvastatin - Hold home metoprolol, amlodipine, isosorbide mononitrite due to concern for sepsis - Consider MATEUSZ-inhibitor/ARB at later time if blood pressure allows # Mechanical Ground-Level Fall She denies head trauma or loss of consciousness. - CT head = "no acute intracranial abnormality." - Recent TTE on 05/06/2022 = "NORMAL LEFT VENTRICULAR EJECTION FRACTION 60-65%. NORMAL WALL MOTION. MILD TRICUSPID REGURGITATION. MILD MITRAL REGURGITATION. SMALL PERICARDIAL EFFUSION." - Requested orthostatic vital signs - Physical Therapy consulted # Type II Diabetes Mellitus - Hold home metformin - Correction scale insulin # Metastatic Squamous Cell Carcinoma of the Tongue with Pulmonary and Bone Metastases # Possible Right Upper Lobe Pulmonary Embolism # Right Internal Jugular Venous Thrombosis (acute vs subacute) # History of Melanoma # Hypoattenuating Nodule of the Gallbladder (9 mm) - CT neck = "large right supraclavicular mass presumably representing metastatic disease with thrombosed right internal jugular vein probably due to mass effect. The right IJ thrombosis is likely either acute or subacute. No fracture or malalignment is identified." - CT chest/abdomen/pelvis = "1. Metastatic disease probably from a lung primary. Multiple pulmonary nodules with a more dominant left lower lobe lesion that may be the primary. Osseous metastatic disease including spinal and pelvic lesions. The right supraclavicular mass would be the safest/easiest site for biopsy confirmation. 2. Large right supraclavicular mass and either acute or subacute right IJ thrombosis. The right subclavian vein may also be occluded. Possible right upper lobe pulmonary embolus. The left hilar lymphadenopathy/mass does occlude the pulmonary artery to the lingula." - Started on enoxaparin for RIJ thrombus and possible PE - Follow-up with MD Crowell as previously scheduled # Hypothyroidism - Continue home levothyroxine Black Castellanos M.D. - Advance Directives Does patient have a Living Will: Yes Does patient have a Durable POA for Healthcare: Yes
[2022-05-16] MEDS ORDERED: ACETAMINOPHEN 500 MG TAB PO PRN (15:25)
[2022-05-16] MEDS ORDERED: ASPIRIN 81 MG CHEWABLE TABLET PO ONE (16:00)
[2022-05-16] MEDS ORDERED: NA CHLORIDE 0.9% 2,000 ML ONE (16:07)
[2022-05-16] MEDS ORDERED: FUROSEMIDE 40 MG/4 ML VIAL ONE (16:07)
[2022-05-16] MEDS ORDERED: GLUCAGON 1 MG/VIAL IM PRN (16:56)
[2022-05-16] MEDS ORDERED: POTASSIUM CL 40 MEQ in NA CHLORIDE 0.9% 500 ML IV SCH (17:00)
[2022-05-16] MEDS: NA CHLORIDE 0.9% 1,000 ML IV SCH ×2 (17:00→22:33)
[2022-05-16] MEDS: FUROSEMIDE 40 MG/4 ML VIAL IV ONE ×2 (17:00→22:32)
[2022-05-16] MEDS: PIPER TAZO 3.375 GM in NA CHLORIDE 0.9% 100 ML IV SCH (17:00)
[2022-05-16] MEDS ORDERED: NA CHLORIDE 0.9% 1,000 ML IV ONE (17:00)
[2022-05-16] MEDS ORDERED: VANCOMYCIN 1 GM in NA CHLORIDE 0.9% 250 ML IVPB SCH (17:00)
[2022-05-16] MEDS ORDERED: D10W 250 ML BAG IV PRN (17:12)
[2022-05-16] MEDS ORDERED: ASPIRIN 81 MG CHEWABLE TABLET ONE (17:27)
[2022-05-16] MEDS ORDERED: VANCOMYCIN 1 GM in NA CHLORIDE 0.9% 250 ML IVPB ONE (18:00)
--- NOTE | 2022-05-16 18:12 | RAD REPORT ---
EXAM DESCRIPTION: US - Renal Ultrasound-Complete - 05/16/2022 5:50 pm CLINICAL HISTORY: NELLI Flank pain COMPARISON: Renal Ultrasound-Complete dated 12/12/2021 FINDINGS: Both kidneys are normal in size, shape and echotexture. The right kidney measures 9.5 x 4.6 x 3.4 cm. No hydronephrosis, focal mass or perinephric fluid. 1.5 cm cyst right kidney. The left kidney measures 9.6 x 4.4 x 3.0 cm. No hydronephrosis, focal mass or perinephric fluid. 3 cm left renal cyst, benign. The urinary bladder is incompletely distended without gross abnormality seen. IMPRESSION: Bilateral benign renal cysts are present, otherwise unremarkable study.
[2022-05-16 18:28] VITALS: BMI 22.6
[2022-05-16] MEDS: INSULIN -REGULAR HUMAN 50 UNIT/0.5 ML ML SQ SCH (21:00)
[2022-05-16] MEDS: HOME MED 1 EA UNK [ROSUVASTATIN 5 MG TAB] PO SCH (21:00)
--- NOTE | 2022-05-16 22:23 | CON ---
Date of Consultation: 05/16/2022 Reason For Consultation: Elevated BUN and creatinine and hypercalcemia. History Of The Present Illness: This is a pleasant, unfortunate 81-year-old female with significant past medical history of hypertension, hyperlipidemia, COVID, peripheral neuropathy, tongue cancer squamous cell with metastasis to the lung, hypothyroidism, diabetes controlled on diet, CAD, GERD, and osteoarthritis. Patient came to the hospital feeling weak, fatigued, and could not ambulate. Patient apparently upon arrival to the hospital was found to have elevation in BUN and creatinine and hypercalcemia. For that reason, we have been consulted. The patient denied taking any nonsteroidal. No vitamin D or calcium supplement. The patient denied any previous history of kidney disease. Reviewing the record for the patient, earlier this month creatinine was 0.7. No hypercalcemia. Past Medical History: 1. Hypertension. 2. Hyperlipidemia. 3. GERD. 4. Diabetes, controlled on the diet. 5. Lung CA with mets. Lung CA on chemo. Last chemo 3 months and on radiation. 6. COVID pneumonia. Past Surgical History: Includes tongue cancer removal, melanoma removal, and ventral hernia. Family History: Positive for coronary artery disease. Social History: Denied smoking. Denied drinking. Denied drug abuse. Home Medications: Include: 1. Pepcid. 2. Isosorbide. 3. Levothyroxine. 4. Magnesium oxide. 5. Metoprolol. 6. Nitrostat. 7. Lovastatin. Family History: Positive for hypertension. Review of Systems: Head and Neck: Had neck swelling. GI: Decreased intake. : No polyuria, no dysuria, no hematuria. Enlisted Advisor: No vaginal discharge. Respiratory: Has shortness of breath. Cardiovascular: No chest pain. No leg edema. Endocrine: No polydipsia. Skin: No rash. Neuro: Has weakness and neuropathy. Musculoskeletal: Generalized fatigue. Physical Examination: Vital Signs: When I saw the patient, the patient was lying in bed with blood pressure of 113/60, pulse of 88. Chest: Clear to auscultation. Heart: S1, S2 regular. Abdomen: Soft, nontender. No organomegaly. Extremities: No edema. Neurologic: Alert. Weak in general. No focality. Lymph Node: Lymphadenopathy on the right side of the neck. Laboratory Data: Sodium 138, potassium 3.4, bicarb 30, BUN 27, creatinine 1.6, GFR 31, calcium 13.7, magnesium 1.9, albumin 2.6, corrected calcium 14.5. Back on May 06, creatinine 0.7, GFR of 86, calcium 9.5. On the , H and H 10.7/32.8 and WBC 12.8. Today WBC 19, H and H 12.4/37.8. Assessment And Plan: 1. Acute kidney injury secondary to prerenal, secondary to calcium diuresis, nonoliguric. To rule out any paraneoplastic I am going to send for the workup. We will start the patient on aggressive hydration and we will monitor the patient closely. We will send for ultrasound to rule out any obstruction. 2. Hypercalcemia, possible secondary to paraneoplastic. 3. Dehydration. We will send for PTH vitamin D and we will start the patient on aggressive hydration with diuresis. We will bolus the patient with 2 L and we will give Lasix 40. If calcium does not improve, we will consider pamidronate. We will continue the patient on hydration. 4. Hypertension, controlled optimal. We will continue to monitor. Avoid any hydrochlorothiazide, MATEUSZ inhibitor or ARB for the time being. 5. Lung/tongue cancer with metastasis as above. We will follow up with the primary. Thank you Dr. Castellanos for allowing us to participate in the care of your patient. Time spent examining the patient [id number], reviewing data, lab and radiology, discussing the case with the patient, discussing the case with meat team lead including nursing and hospitalist more than 65 minutes TOMA Voice ID: [id number] Report ID: [id number] WILSON
[2022-05-16 22:26] LABS: Urine Bacteria <20 /HPF (<20); Urine Bilirubin NEGATIVE (Negative); Urine Blood Trace (Negative); Urine Clarity Clear (Clear); Urine Color Colorless (Yellow); Urine Glucose NEGATIVE (Negative); Urine Protein NEGATIVE (Negative); Urine RBC <5 /HPF (None Seen); Urine Urobilinogen Normal (Normal); Urine pH 7.5 (5.0-7.0)
[2022-05-16 22:31] LABS: UR PROTEIN 26.1 mg/dL (<11.9)
[2022-05-16] MEDS: VANCOMYCIN 1 GM in NA CHLORIDE 0.9% 250 ML IVPB SCH (22:31)
[2022-05-16 22:32] LABS: UR CREAT < 18.0 mg/dL (20-320)
[2022-05-16] MEDS: ENOXAPARIN 60 MG/0.6 ML SQ SCH (22:32)
--- NOTE | 2022-05-17 01:41 | CON ---
Date of Consultation: 05/16/2022 Reason For Consultation: Elevated troponin. History Of Present Illness: This is a 81-year-old female with past medical history of squamous cell carcinoma of the tongue, melanoma of her back, coronary artery disease, diabetes, hypertension, hypot hyroidism, and dyslipidemia. She had sustained a ground level fall at home and could not pic k her up, so brought her into the emergency room. Patient denies having any chest pain, no shortness of breath, and has no orthopnea or cough or wheezing. No nausea, vomiting, or diarrhea. She is gen erally weak. No other complaints. Past Medical History: As outlined above in the HPI. Medications: Refer to reconciliation sheet for detailed list. Allergies: LONG LIST OF ALLERGY WAS REVIEWED. PLEASE REFER TO NURSE'S NOTE FOR DETAILED LIST. Family History: No premature coronary artery disease or cancer. Social History: Does not smoke or drink. Does not use any drugs. Review of Systems: All systems reviewed and they were negative except for what is mentioned in HPI. Physical Examination: Vital Signs: Reviewed. Temperature is 97.5, pulse 71, breathing at 24, blood pressure 156/74, satur ating 93% on room air. General: Pleasant elderly female, in no apparent distress. Head And Neck: Pupils are equal and reactive to light. Intact eye movements. No JVD. No cervical lymphadenopathy. Neck: Supple. Thyroid is not enlarged. Lungs: Rhonchi bilaterally. No accessory muscle use or muscle retraction. Heart: Regular rate and rhythm. No extra sounds. Abdomen: Soft, nontender. Bowel sounds positive. No organomegaly. No masses or hernia. No rigidi ty or rebound. Extremities: No clubbing or cyanosis. Intact pulses. Skin: No rash. Neurologic: Alert, awake, and oriented x3. No acute focal deficits appreciated. Investigations: BUN 27, creatinine 1.65. Troponin initially was 513 and then 863. Assessment And Recommendation: 1.Elevated troponins. Patient sustained a ground level fall. Please check CK level to see if she h as rhabdomyolysis and trend troponin further until it trends down and please obtain echocardiogram to laura morning to evaluate for any wall motion abnormality. 2.Sepsis, which could be responsible for the rise in the troponin as a demand ischemia as apparently the patient is known to have coronary artery disease. 3.History of coronary artery disease. I will review records in the office and further recommendatio ns to follow. In the interim, please continue baby aspirin and Lovenox until records are reviewed an d the echo is obtained. /TRISTA Voice ID: [id number] Report ID: [id number]
[2022-05-17] MEDS: PIPER TAZO 3.375 GM in NA CHLORIDE 0.9% 100 ML IV SCH ×3 (04:02→15:50)
--- NOTE | 2022-05-17 06:21 | P.PN ---
Date of Service: 05/17/22 Her care has been transferred to Dr. Arteaga as of 06:00 AM this morning. I have given him handoff and he will see her today. Black Castellanos M.D.
[2022-05-17] MEDS: LEVOTHYROXINE SOD 0.112 MG TAB PO SCH (06:30)
[2022-05-17 06:41] LABS: Albumin 2.1 g/dL (3.4-5.0); Bilirubin Total 0.4 mg/dL (0.2-1.0); Magnesium 1.6 mg/dL (1.8-2.4); Phosphorus 2.8 mg/dL (2.5-4.9); Potassium 3.2 mmol/L (3.5-5.1); Protein, Total 6.6 g/dL (6.4-8.2); Thyroid Stimulating Hormone 1.69 uIU/mL (0.360-3.740); Uric Acid 5.2 mg/dL (2.6-6.0)
[2022-05-17] MEDS: INSULIN -REGULAR HUMAN 50 UNIT/0.5 ML ML SQ SCH ×4 (07:30→21:00)
[2022-05-17] MEDS ORDERED: PNEUMOCOCCAL VACCINE 0.5 ML IMVAC ONE (08:00)
[2022-05-17] MEDS: ASPIRIN EC 81 MG TAB PO SCH (08:24)
[2022-05-17] MEDS: NA CHLORIDE 0.9% 1,000 ML IV SCH ×3 (08:31→17:58)
[2022-05-17 08:56] LABS: Absolute Lymphocytes (CBC) 1.2 K/uL (0.7-4.9); Hematocrit 33.3 % (36.0-45.0); Lymphocytes % 8.5 % (15.3-44.8); MCV 85.6 fL (80-100); MPV 8.5 fL (7.6-11.3); RBC Red Blood Cell Count 3.88 M/uL (3.86-4.86)
--- NOTE | 2022-05-17 13:09 | P.PN ---
Subjective Date of Service: 05/17/22 Subjective: No new changes Physical Examination - Vital Signs Temperature: 97.6 F Blood Pressure: 163/69 Pulse: 88 Respirations: 18 Pulse Ox (%): 97 - Physical Exam General: Other (Appears as her stated age) HEENT: Atraumatic, Normocephalic Neck: Supple, JVD not distended Respiratory: Other (Symmetric chest expansion) Cardiovascular: No rubs, No murmurs Gastrointestinal: Soft and benign, No guarding Musculoskeletal: No clubbing Integumentary: No warmth Neurological: Normal speech, Normal tone Urinary: Other (No bladder distention) External genitalia: Deferred Rectal: Deferred - Studies Microbiology Data (last 24 hrs): 05/16/22 12:00 Blood - Blood Anaerobic Blood Culture - Final Assessment And Plan - Plan 1. Acute kidney injury secondary to prerenal, secondary to prerenal state from calcium diuresis, nonoliguric. SCr improved to 1.4. Cont IV fluid. [place] po fluid intake. 2. Hypercalcemia, possible secondary to paraneoplastic. Improving. IVF as above. Give Pamidronate today. 3. Htn. Cont current med regimen. 4. Anemia. Monitor H/H. 5. Metastatic tongue/lung cancer. Pt & family wanting to pursue hospice. Per primary team.
[2022-05-17] MEDS ORDERED: PAMIDRONATE DISOD 30 MG VIAL IV ONE (15:03)
[2022-05-17] MEDS ORDERED: PAMIDRONATE 60 MG in NA CHLORIDE 0.9% 500 ML IV ONE (16:00)
[2022-05-17] MEDS: HOME MED 1 EA UNK [ROSUVASTATIN 5 MG TAB] PO SCH (21:00)
[2022-05-17] MEDS: ENOXAPARIN 60 MG/0.6 ML SQ SCH (21:01)
[2022-05-18] MEDS: PIPER TAZO 3.375 GM in NA CHLORIDE 0.9% 100 ML IV SCH ×3 (00:38→17:00)
--- NOTE | 2022-05-18 01:47 | PN ---
Date of Progress Note: 05/17/2022 Subjective: Seen by bedside. No chest pain. No shortness of breath. Resting well in her bed. Review of Systems: No chest pain, shortness of breath, orthopnea, or cough. No nausea, vomiting, or diarrhea. No abdom inal pain, dysuria, polyuria, or urinary urgency. All other systems are reviewed and are negative. Physical Examination: Vital Signs: Reviewed. Head And Neck: Pupils are equal and reactive to light. Intact eye movements. No JVD. No cervical lymphadenopathy. Neck is supple. Thyroid is not enlarged. Lungs: Clear to auscultation bilaterally. No rhonchi, wheezing, or crackles. No accessory muscle u se. Heart: Regular rate and rhythm. No extra sounds. Abdomen: Soft, nontender. Bowel sounds positive. No organomegaly. No masses or hernia. No rigidi ty or rebound. Extremities: No edema, clubbing, or cyanosis. Intact pulses. Skin: No rash. Neuro: Alert, awake, and oriented x3. No acute focal deficits appreciated. Investigations: BUN 26, creatinine is 1.32, calcium was 12.3 and troponin is coming down at 502. Assessment And Recommendation: 1.Elevated troponin, likely due to demand and it is coming down slowly. There is no chest pain. We will plan for outpatient stress test and an echocardiogram. This is likely not acute coronary syndr ome. 2.Pneumonia, on antibiotics. Continue current management. 3.Hypertension. Blood pressure is elevated. Recommend to start her on metoprolol 25 mg twice a day and adjust further for blood pressure control. SR/MODL Voice ID: [id number] Report ID: [id number]
[2022-05-18 04:02] LABS: Absolute Lymphocytes (CBC) 1.3 K/uL (0.7-4.9); Hematocrit 33.4 % (36.0-45.0); Lymphocytes % 9.3 % (15.3-44.8); MCV 85.2 fL (80-100); MPV 8.7 fL (7.6-11.3); RBC Red Blood Cell Count 3.92 M/uL (3.86-4.86)
[2022-05-18 04:31] LABS: Albumin 2.1 g/dL (3.4-5.0); Bilirubin Total 0.5 mg/dL (0.2-1.0); Phosphorus 2.6 mg/dL (2.5-4.9); Protein, Total 6.3 g/dL (6.4-8.2)
[2022-05-18 04:34] LABS: Potassium 2.6 mmol/L (3.5-5.1)
[2022-05-18] MEDS: KCL 20 MEQ/100 mL IVPB 20 MEQ/100 ML BAG IV SCH ×5 (05:08→20:59)
[2022-05-18] MEDS: NA CHLORIDE 0.9% 1,000 ML IV SCH ×3 (05:10→19:00)
[2022-05-18] MEDS: LEVOTHYROXINE SOD 0.112 MG TAB PO SCH (06:30)
[2022-05-18] MEDS: INSULIN -REGULAR HUMAN 50 UNIT/0.5 ML ML SQ SCH ×4 (07:30→20:11)
[2022-05-18] MEDS: ASPIRIN EC 81 MG TAB PO SCH ×2 (07:39→08:41)
[2022-05-18] MEDS ORDERED: NA CHLORIDE 0.9% 1,000 ML IV ONE (10:20)
[2022-05-18] MEDS ORDERED: FUROSEMIDE 40 MG/4 ML VIAL IV ONE (10:21)
[2022-05-18] MEDS: VANCOMYCIN 1 GM in NA CHLORIDE 0.9% 250 ML IVPB SCH (10:35)
--- NOTE | 2022-05-18 14:39 | PN ---
Date of Progress Note: 05/17/2022 Subjective: The patient was seen this morning for followup. She was admitted yesterday under hospit alist service after she came to the emergency room. She was in the hospital about 2 weeks ago with s troke that caused some difficulty with speech and left-sided weakness, and she improved as far as str vin symptoms were concerned, was able to go home. The patient has significant past medical history w ith underlying coronary artery disease, hypertension, hyperlipidemia, and history of tongue cancer fo r which she had surgery, radiation therapy, chemotherapy, etc., at [facility] and she continues to h ave followup on a regular basis at [facility]. 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 Also communicated with physician legal document assistant who had called me from [facility] a few days ago and confirmed that they did receive those abnormal test results from our hospital as provided to kyleigh ent to submitted to [facility] and they will pursue further workup which is actually scheduled for n ext week on Friday. Meanwhile, she ends up in our hospital now. When I saw her this morning, she wa s not feeling good at all. Feels very weak, tired, has been having some cough, chest congestion, cou ghing up some mucus with occasional streaks of blood in it. Physical Examination: Vital Signs: Reviewed. HEENT: Unremarkable. Lungs: Clear to auscultation. Heart: Sounds normal. Abdomen: Soft. Bowel sounds normal. No guarding, rigidity, tenderness, or distention. Extremities: No leg edema. Neuro: Speech is likely slurred. Power in right upper and right lower extremity, normal; left upper and left lower extremities is very minimally weak, I would say 4+/5 in left upper and left lower ext remity, and 5/5 in right upper and right lower extremity. Laboratory Data: Yesterday, white count 19.1, hemoglobin 12.4, platelets 317. Today; white count 14 .2, hemoglobin 10.8, platelets 291. Yesterday, sodium 138, potassium 3.4, chloride 99, bicarb 30, BU N 27, creatinine 1.65, glucose 139. Serum calcium level 13.7. Liver function tests unremarkable. I nitial troponin 513, second troponin 863, and third troponin 502. This morning; sodium 141, potassiu m 3.2 chloride 107, bicarb 25, BUN 26, creatinine 1.38, glucose 102, calcium 12.3, magnesium 1.6. Re nal ultrasound shows bilateral benign renal cyst, otherwise unremarkable. CAT scan of the chest, abd omen, and pelvis done in emergency room shows metastatic disease probably from lung primary, multiple pulmonary nodules with more dominant left lower lobe lesion which may be primary bony metastasis dis ease involving spinal and pelvic region. Right supraclavicular mass present. Large right supraclavi cular mass either acute or subacute, right IJ thrombosis. There is also possible right upper lobe pu lmonary embolus and left hilar lymphadenopathy/mass causes obstruction to pulmonary artery to the chloé gula. CAT scan of the soft tissue of the neck shows large right supraclavicular mass and thrombosed right internal jugular vein. CAT scan of the brain was negative for any acute changes. Impression: 1.Non-ST elevation myocardial infarction. 2.Hypercalcemia. 3.Paraneoplastic syndrome. 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 6.Hypomagnesemia. 7.Anemia. 8.Volume depletion. 9.Stroke. 10.Coronary artery disease. 11.Hypertension. 12.Hyperlipidemia. Plan: We will go ahead and continue current empiric antibiotics. Continue IV fluid. We will consul t environmental professional and consult consumer insight analyst. I did have a long discussion with the patient in presence o f her significant abnormal findings that we see on CAT scan of the chest, abdomen, and pelvis region and what I am concerned about is metastatic disease to her lung as well as metastatic disease to her bone. We do not know whether this primary source is from tongue cancer or she has another malignancy like lung cancer with metastatic disease. Regardless of what the underlying primary is prognosis is very poor and she has appointment to go to [facility] for testing to be done on Friday and then [facility] with her oncologist, Dr. Jose Nichols and I did try to reach out to her. She was not available in the clinic and left a message for her to call me back. I did communicate with the p atient and her family today that her prognosis is very poor and she is not a candidate for any surger y or radiation treatment and chemotherapy is probably the only option she has but what she has is not curable condition, and the patient understands that in the past she had very difficult time with diane motherapy, and she really does not want to pursue any further treatment for this cancer at this time. We did talk about going home on hospice care and the patient agrees to do so. I will see her tomor row for followup. We will continue current Lovenox and aspirin at this time. Continue current empir ic antibiotics. I will see her tomorrow morning for followup. RASHMI/MODL Voice ID: [id number] Report ID: [id number]
[2022-05-18] MEDS ORDERED: Magnesium Sulfate 2gm IVPB 2 G/50 ML BAG IV ONE (14:44)
--- NOTE | 2022-05-18 15:50 | PN ---
Date of Progress Note: 05/18/2022 Subjective: Patient was admitted with hypercalcemia, dehydration. Patient received pamidronate, receive hydration, calcium gradually trend down but still elevated. Physical Examination: Vital Signs: When I saw the patient; the blood pressure 125/51, pulse of 81, afebrile. Chest: Clear to auscultation. Heart: S1, S2, regular. Abdomen: Soft. Nontender. Extremities: No edema. Neck: There is fullness and enlargement with mass on the right lower root of the neck. Neurologic: Alert, no focality. Laboratory Data: Sodium 143, potassium 2.6, bicarb 26, BUN 27, creatinine 1.3. Continue to trend down calcium 11.7, albumin 2.1. Corrected calcium is 13.3, hemoglobin 10.8. Current Medications: The patient on it includes patient received pamidronate, Zosyn, vancomycin, levothyroxine. KCl of 20. Assessment And Plan: 1. Acute kidney injury secondary to prerenal, secondary to dehydration, secondary to calcium diuresis on the recovery phase. We will continue hydration. I am going to go ahead and give another liter of normal saline, then we will give Lasix after to establish more calcium diuresis. 2. Hypercalcemia, not PTH mediated as the PTH appropriately suppressed. Vitamin D level still pending. Possible secondary to paraneoplastic, status post pamidronate, calcium trending down, but still elevated. Serum protein electrophoresis is still pending. I am going to go ahead and start the patient on Sensipar. It is labeled use in this case, but it is the most benign interaction for her and we will follow up. 3. I am going to give the patient 1 L of normal saline, then we will give another dose of Lasix after it to establish more calcium diuresed. We will continue on IV hydration. 4. Hypokalemia. We will supplement. I am going to check again for her magnesium to see if she need any supplement and we will follow up. 5. Tongue cancer with met as by primary. 6. Diabetes as by primary. Time spent examining the patient [id number], reviewing data, lab and radiology, discussing the case with the patient, discussing the case with steam press tender including nursing and hospitalist more than 35 minutes TOMA Voice ID: [id number] Report ID: [id number] [facility] THROAT HOSPITALDemetris
[2022-05-18] MEDS ORDERED: MAGNESIUM SULFATE 1 gm IVPB 1 GM/100 ML BAG IV ONE (17:05)
[2022-05-18] MEDS: HOME MED 1 EA UNK [ROSUVASTATIN 5 MG TAB] PO SCH (19:37)
[2022-05-18] MEDS: ENOXAPARIN 60 MG/0.6 ML SQ SCH (19:38)
--- NOTE | 2022-05-18 22:49 | PN ---
Date of Progress Note: 05/18/2022 Subjective: Patient was seen this morning for followup. No new complaints or problems reported by jermaine sims. She was lying in bed, not in distress. Her was with her at bedside. Nurse reported the patient had trouble drinking water, but the patient reported that she does not have any trouble drinking thicker consistency liquids like Ensure or soft food, she does not have problem with that ei ther. Objective: Vital Signs: Reviewed. HEENT: Unremarkable. Lungs: Clear to auscultation. Heart: Sounds normal. Abdomen: Soft. Bowel sounds normal. No guarding, rigidity, tenderness, or distention. Extremities: No leg edema. Laboratory Data: White count 13.5, hemoglobin 10.8, platelets 274. Sodium 143, potassium 2.6, chlor maribel 109, bicarb 26, BUN 27, creatinine 1.31, glucose 110, calcium 11.7, magnesium 1.5. Impression: 1.Non-ST elevation myocardial infarction. 2.Coronary artery disease. 3.Hypertension. 4.Hyperlipidemia. 5.Paraneoplastic syndrome. 6.Hypercalcemia. 7.Cancer of tongue with metastatic disease to lung and bone. Plan: We will go ahead and continue current medication. The patient has informed me that she would like to go home with hospice care and I had given her options of local hospice agency, which is [facility] and the patient has selected [facility] and I have initiated the contact with [facility]. The patient will need a hospital bed and wheelchair and this medical equipm ent may not be available until Friday so her discharge will probably need to be delayed until Friday. Meanwhile, while in the hospital, we will continue empiric antibiotic for pneumonia. Continue anti coagulation therapy and aspirin and I did talk to her regarding diet. She will need to stay on puree d diet with thick liquids like Ensure consistency and I have advised her to tuck her chin while swall owing and all those techniques were demonstrated. We do not have any speech therapist available unti l Friday or Friday. RASHMI/MODL Voice ID: [id number] Report ID: [id number]
[2022-05-19] MEDS: PIPER TAZO 3.375 GM in NA CHLORIDE 0.9% 100 ML IV SCH ×3 (00:08→16:26)
[2022-05-19] MEDS ORDERED: VANCOMYCIN 1 GM in NA CHLORIDE 0.9% 250 ML IVPB SCH ×2 (03:00→09:00)
[2022-05-19] MEDS: NA CHLORIDE 0.9% 1,000 ML IV SCH ×3 (03:26→12:49)
[2022-05-19 05:35] LABS: Absolute Lymphocytes (CBC) 1.4 K/uL (0.7-4.9); Hematocrit 28.6 % (36.0-45.0); Lymphocytes % 8.7 % (15.3-44.8); MCV 84.6 fL (80-100); MPV 8.6 fL (7.6-11.3); RBC Red Blood Cell Count 3.38 M/uL (3.86-4.86)
[2022-05-19 05:48] LABS: Magnesium 2.1 mg/dL (1.8-2.4); Potassium 3.1 mmol/L (3.5-5.1)
[2022-05-19] MEDS: LEVOTHYROXINE SOD 0.112 MG TAB PO SCH (06:00)
[2022-05-19] MEDS: KCL 20 MEQ/100 mL IVPB 20 MEQ/100 ML BAG IV SCH ×4 (06:23→22:00)
[2022-05-19] MEDS: INSULIN -REGULAR HUMAN 50 UNIT/0.5 ML ML SQ SCH (07:30)
[2022-05-19] MEDS: ASPIRIN EC 81 MG TAB PO SCH (08:39)
[2022-05-19] MEDS: CINACALCET HCL 30 MG TAB PO SCH (08:39)
[2022-05-19] MEDS ORDERED: DOXYCYCLINE 100 MG in NA CHLORIDE 0.9% 100 ML IVPB SCH ×2 (09:00→12:30)
--- NOTE | 2022-05-19 11:35 | PN ---
Date of Progress Note: 05/19/2022 Subjective: The patient was seen this morning for followup. Her and son and [id number] were present at bedside with her. The patient was lying in bed, not in distress. Has poor appetite . Yesterday, she had 3 cans of Ensure and does not have any trouble swallowing Ensure. The patient also reported that she had lot more hemoptysis yesterday than previous day and on the previous day wa s just streaks of blood, but yesterday she noted lot more blood when she was coughing up. Objective: Vital Signs: Reviewed. HEENT: Unremarkable. Lungs: Clear to auscultation. No wheezing. No rales. Heart: Sounds normal. Abdomen: Soft. Bowel sounds normal. No guarding, rigidity, tenderness, distention. Extremity: No leg edema. Laboratory Data: White count 15.6, hemoglobin 9.4, platelets 291. Sodium 145, potassium 3.1, chlori de 113, bicarb 25, BUN 29, creatinine 1.25, glucose 145, magnesium 2.1, calcium 10.2. Impression: 1.Non-ST segment elevation myocardial infarction. 2.Pneumonia. 3.Hypokalemia. 4.Hypomagnesemia. 5.Anemia. 6.Coronary artery disease. 7.Tongue cancer with metastatic disease to lung and bones. 8.Stroke. 9.Hemoptysis. Plan: We will go ahead and discontinue vancomycin and start the patient on doxycycline per order. C ontinue aspirin, but considering worsening problem with hemoptysis, I will discontinue her Lovenox. The patient was encouraged to continue to drink Ensure. Yesterday, I did communicate with the [facility] agency and the patient needs hospital bed and a wheelchair. Unfortunately, we will not be able to get this 2 equipments until Friday, which is tomorrow so our plan is to discharge her to go home belia rrow with hospice care. Her prognosis is very poor. Life expectancy is less than 6 months, probably less than 1 month as per my discussion with family today. We also talked about discontinuing certai n nonessential medications and I have suggested to discontinue cholesterol medication which is rosuva statin. I did talk to the patient in presence of her family regarding risk, benefit of continuation of aspirin and Plavix would like the way she was taking at home and my recommendation is to continue aspirin by itself and to discontinue Plavix. Also, talked to them regarding what their decision will be going home with antibiotics or not and they will think about it and let me know tomorrow. I also informed the patient and family that any other medication that she will take at home upon discharge, decision to whether to continue those medications or to discontinue probably will change depending o n her condition after she goes home and she will need to make those decisions along with hospice care as the time goes on. Overall prognosis is poor. I will see her tomorrow with our plan to possibly discharge her to go home with hospice tomorrow. RASHMI/MODL Voice ID: [id number] Report ID: [id number]
[2022-05-19] MEDS ORDERED: POTASSIUM CL 40 MEQ in NA CHLORIDE 0.9% 500 ML IV SCH (13:00)
[2022-05-19] MEDS ORDERED: FUROSEMIDE 40 MG/4 ML VIAL IV ONE (13:00)
--- NOTE | 2022-05-19 13:40 | PN ---
Date of Progress Note: 05/19/2022 Subjective: The patient was admitted with hypercalcemia, paraneoplastic, not PTH-mediated. The patient was started on pamidronate, hydration. Calcium trending down. Physical Examination: Vital Signs: Blood pressure 116/46, pulse of 75, afebrile. Chest: Clear to auscultation. Heart: S1, S2. Regular. Systolic murmur. Abdomen: Soft, nontender. Extremity: No edema. Neuro: Alert. No focality. Laboratory Data: WBC 15.6, H and H 9.4/28.6. Sodium 145, potassium 3.1, bicarb 25, BUN 29, creatinine 1.5, calcium down to 10.2, magnesium 2.1. Current Medications: The patient on include; 1. Doxycycline. 2. Zosyn. 3. Tylenol. 4. IV fluid at 50 per hour. 5. Sensipar. Assessment And Plan: 1. Hypercalcemia, non PTH-mediated secondary mostly to paraneoplastic. The patient responding very well. Calcium is trending down nicely. I am going to continue IV fluid. We will give another dose of Lasix for the patient. We will follow up serum protein electrophoresis. 2. Acute kidney injury secondary to prerenal, calcium, diuresis. Acute kidney injury on the recovery phase secondary to dehydration. We will continue IV fluid. 3. Hypokalemia. We will supplement cautiously. 4. Tongue cancer with metastasis all over. The prognosis is poor. We will follow up with primary. Possible considering back to hospice. Time spent examining the patient [id number], reviewing data, lab and radiology, discussing the case with the patient, discussing the case with production team leader including nursing and hospitalist more than 35 minutes TOMA Voice ID: [id number] Report ID: [id number] [facility]
[2022-05-19] MEDS ORDERED: KCL 20 MEQ/100 mL IVPB 20 MEQ/100 ML BAG IV SCH (14:00)
[2022-05-19] MEDS: HOME MED 1 EA UNK [ROSUVASTATIN 5 MG TAB] PO SCH (21:00)
[2022-05-20] MEDS: PIPER TAZO 3.375 GM in NA CHLORIDE 0.9% 100 ML IV SCH ×2 (01:39→09:00)
[2022-05-20] MEDS: DOXYCYCLINE 100 MG in NA CHLORIDE 0.9% 100 ML IVPB SCH ×2 (01:40→13:00)
[2022-05-20 02:30] VITALS: O2SAT 93
[2022-05-20 05:57] LABS: Potassium 3.4 mmol/L (3.5-5.1)
[2022-05-20] MEDS ORDERED: KCL 20 MEQ/100 mL IVPB 20 MEQ/100 ML BAG IV SCH (08:00)
[2022-05-20] MEDS: CINACALCET HCL 30 MG TAB PO SCH (09:57)
[2022-05-20] MEDS: ASPIRIN EC 81 MG TAB PO SCH (09:57)
[2022-05-20 16:39] VITALS: BP 148/78; TEMP 98.2
--- NOTE | 2022-05-20 21:47 | CON ---
Chief Complaint: Hypercalcemia, paraneoplastic syndrome, acute kidney injury. History Of Present Illness: The patient has multiple medical problems. She was admitted to the hosp ital because of generalized weakness and was found to have hypokalemia, acute kidney injury, and bety re hypercalcemia. Patient had workup done and hypercalcemia was secondary to paraneoplastic syndrome and PTH was appropriately suppressed and it was non PTH mediated hypercalcemia. The patient receive d pamidronate and IV fluids for hydration and treatment of hypercalcemia. Review of Systems: Denies fever or chills. Physical Examination: Lungs: Clear to auscultation bilaterally. Heart: S1, S2. Abdomen: Soft. Extremities: No edema. Laboratory Data: Sodium 131, potassium 3.1, bicarbonate 25, BUN 21, creatinine 1.5, magnesium 2.1. Impression And Plan: 1.Hypercalcemia secondary to paraneoplastic syndrome. The patient received treatment in form of IV fluids and IV Lasix as well as pamidronate. The patient will follow up outpatient for results of ser um protein electrophoresis. 2.Acute kidney injury secondary to volume depletion, prerenal azotemia, and nonoliguric acute tubula r necrosis complicated by hypercalcemia, which was culprit for volume depletion. 3.Hypokalemia. Supplementation according to lab. Continue IV hydration and avoid nephrotoxic medic ation. EB/MODL Voice ID: [id number] Report ID: [id number]
[2022-05-21] MEDS ORDERED: DOXYCYCLINE 100 MG in NA CHLORIDE 0.9% 100 ML IVPB SCH (01:00)
--- NOTE | 2022-05-21 03:57 | DS ---
Date of Discharge: 05/20/2022 Disposition: Discharged to go home with hospice care. Physical Examination: HEENT: Unremarkable. Lungs: Clear to auscultation. Heart: Sounds normal. Abdomen: Soft. Bowel sounds normal. No guarding, rigidity, tenderness, distention. Extremities: No leg edema. Discharge Medications/instructions: 1.Patient to be admitted to hospice care and hospice medical clerk to take over care. 2.Continue all prior home medications except stop rosuvastatin and stop clopidogrel. 3.Comfort care orders as per hospice. 4.Doxycycline 200 mg 2 times a day for 1 week. Laboratory Data: Upon admission, white count 19.1, hemoglobin 12.4, platelets 317. Last CBC yesterd ay, white count 15.6, hemoglobin 9.4, platelets 294. Upon admission, chemistry shows sodium 138, pot assium 3.4, chloride 99, bicarb 30, BUN 27, creatinine 1.65, glucose 139, calcium 13.7. Initial trop onin 513, second troponin 863, third troponin 502. Last chemistry yesterday, sodium 145, potassium 3 .1, chloride 113, bicarb 25, BUN 29, creatinine 1.25, glucose 145, calcium level 10.2. Hospital Course: This is a 81-year-old female patient who was admitted to the hospital after she cam e into emergency room. Please see dictated H and P for more information. This patient was admitted to the hospital with non-ST elevation myocardial infarction. Cardiology and Nephrology consultation were obtained. The patient received IV fluid and IV pamidronate for treatment of hypercalcemia, whic h was thought to be due to paraneoplastic syndrome. This CAT scans done in the emergency room show s ignificant abnormality and multiple pulmonary nodules consistent with metastatic disease to lung and it also showed metastatic disease to bones. I have reviewed all these findings with the patient and her as well as her children, who were available in the room, when I communicated with the raul rider and all these details were discussed with her. Her overall prognosis is very poor with this met astatic disease to lung and bone and we did talk about possibility of hospice care as patient really did not want to go back to [facility] for consideration of chemotherapy. I did try to reach out to her oncologist, Dr. Ly last week on Friday, left a message for her to come back. The patien t has elected to go home with hospice care and medically she is stable for discharge. She did have s ome trouble swallowing and she is able to swallow thickened liquids and she will avoid thin clear liq uid of water consistency as it is harder for her to swallow that. She was advised to chew her food w ell and tuck her chin little bit, when she is trying to swallow to reduce chances of any kind of ____ Discharge Diagnoses: 1.Non-ST elevation myocardial infarction. 2.Hypercalcemia. 3.Paraneoplastic syndrome. 4.Volume depletion. 5.Pneumonia. 6.Anemia. 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 8.Stroke. 9.Hypomagnesemia. 10.Anemia. 11.Hypertension. 12.Coronary artery disease. 13.Hyperlipidemia. RASHMI/MODL Voice ID: [id number] Report ID: [id number]
[2022-05-21 14:53] LABS: Albumin, (SPE) 2.6 g/dL (3.8-4.8); Alpha-1-Globulins 0.7 g/dL (0.2-0.3); Alpha-2-Globulins 1.2 g/dL (0.5-0.9); INTERPRETATION REPORT
[2022-05-22 00:56] LABS: Vitamin D 1,25-Dihydroxy Total 26 pg/mL (18-72); Vitamin D,1,25-OH2, D2 <8 pg/mL
== END 2022-05-20 20:10 | disposition hospice, home (50) | DRG 871 ==
LOC: ER 08:59 → ERHOLD 15:13 → 2ND 19:13
PROVIDERS: ADMIT Internal Medicine; ATTEND Internal Medicine
DX: A41.9 Sepsis, unspecified organism (principal); I21.A1 Myocardial infarction type 2; J18.9 Pneumonia, unspecified organism; N17.9 Acute kidney failure, unspecified; I31.39 Other pericardial effusion (noninflammatory); C79.51 Secondary malignant neoplasm of bone; C78.00 Secondary malignant neoplasm of unspecified lung; I69.354 Hemiplegia and hemiparesis following cerebral infarction affecting left non-dominant side; R04.2 Hemoptysis; C02.9 Malignant neoplasm of tongue, unspecified; E11.9 Type 2 diabetes mellitus without complications; I10 Essential (primary) hypertension; E03.9 Hypothyroidism, unspecified; E78.5 Hyperlipidemia, unspecified; I08.1 Rheumatic disorders of both mitral and tricuspid valves; K21.9 Gastro-esophageal reflux disease without esophagitis; E87.6 Hypokalemia; D64.9 Anemia, unspecified; E83.52 Hypercalcemia; I25.10 Atherosclerotic heart disease of native coronary artery without angina pectoris; E86.0 Dehydration; E83.42 Hypomagnesemia; E86.9 Volume depletion, unspecified; M19.90 Unspecified osteoarthritis, unspecified site; D72.829 Elevated white blood cell count, unspecified; Z51.5 Encounter for palliative care; Z88.5 Allergy status to narcotic agent; Z88.8 Allergy status to other drugs, medicaments and biological substances; Z79.84 Long term (current) use of oral hypoglycemic drugs; Z86.16 Personal history of COVID-19; Z79.82 Long term (current) use of aspirin; Z79.890 Hormone replacement therapy; Z90.710 Acquired absence of both cervix and uterus; Z79.899 Other long term (current) drug therapy; Z20.822 Contact with and (suspected) exposure to COVID-19; W18.30XA Fall on same level, unspecified, initial encounter; Y92.092 Bedroom in other non-institutional residence as the place of occurrence of the external cause; Y93.01 Activity, walking, marching and hiking
CPT/HCPCS: 36415; 70450; 70491; 71045; 71260; 74177; 76770; 80048; 80053; 80069; 80076; 80202; 81001; 82550; 82570; 82652; 82947; 83605; 83735; 83880; 83970; 84132; 84156; 84165; 84443; 84484; 84550; 85025; 85610; 86850; 86900; 86901; 87040; 87086; 87088; 87811; 96365; 96366; 97116; 97161; 97530; 99285; J1650; J1940; J2430; J2543; J3370; J3475; J3480; J7030; J7040; J7050; Q9967